=== PATIENT | male | born 1960 | race Caucasian/White ===

== ENCOUNTER 2016-06-02 02:30 | Inpatient (IN) | payer MEDICARE, OTHER ==
[~2016-06-02] VITALS: Ht 165.1 cm; Wt 63.8 kg
[2016-06-02] VITALS (32 sets, daily range): BP systolic 147–229; BP diastolic 39–110; PULSE 79–154; RESP 12–23; TEMP 98.4–98.7; O2SAT 97–100
[~2016-06-02 02:30] MED LIST: AMLO10 PO; ASPI81TA81 PO; BUSP10TA PO; CALC500C6 CHEW; CITA20TA4 PO; COZA50TA PO; EPOG1000 IV; GLIP10TA6 PO; LEVEMIR SQ; METO50TA PO; NOVOLOGP2 SQ; PANT40TA3 PO; PLAV75TA29 PO; PREG25 PO; PROB1CAP12 PO; ULTR50TA5 PO
[2016-06-02] MEDS ORDERED: LABETALOL HCL 100 MG/20 ML VIAL ONE (03:12)
[2016-06-02] MEDS ORDERED: ONDANSETRON HCL 4 MG/2 ML VIAL IVP ONE (03:15)
[2016-06-02] MEDS ORDERED: MORPHINE SULFATE 4 MG/ML INJ IV PUSH ONE (03:45)
[2016-06-02] MEDS ORDERED: PROMETHAZINE INJ 25 MG/ML VIAL IM ONE (03:45)
[2016-06-02 03:55] LABS: AUTOMATED NEUTROPHIL # 12.3 TH/MM3 (1.8-7.7); BASOPHIL % 0.2 % (0.0-2.0); HEMATOCRIT 36.5 % (39.0-51.0); HEMO FLAGS DIFF FINAL; LYMPH % 2.8 % (9.0-44.0); LYMPHOCYTE # 0.4 TH/MM3 (1.0-4.8); MEAN CELL VOLUME 85.6 FL (80.0-100.0); MEAN CORPUSCULAR HEMOGLOBIN 29.1 PG (27.0-34.0); MONO % 1.7 % (0.0-8.0); NEUT % 95.3 % (16.0-70.0); PLATELET COUNT 235 TH/MM3 (150-450); RED BLOOD COUNT 4.27 MIL/MM3 (4.50-5.90); RED CELL DISTRIBUTION WIDTH 14.1 % (11.6-17.2); WHITE BLOOD COUNT 12.9 TH/MM3 (4.0-11.0)
[2016-06-02] MEDS ORDERED: LABETALOL HCL 100 MG/20 ML VIAL IV PUSH ONE ×2 (04:00→06:15)
[2016-06-02 04:17] LABS: ALKALINE PHOSPHATASE 96 U/L (45-117); TOTAL BILIRUBIN ADULT 0.7 MG/DL (0.2-1.0)
--- NOTE | 2016-06-02 04:41 | PD ---
HPI Chief Complaint: GI Complaint Time Seen by Provider: 03:17 Travel History International Travel<30 days: No Contact w/Intl Traveler<30days: No Traveled to known affect area: No History of Present Illness HPI This is a patient with a history of end-stage renal disease who presents to the emergency department with nausea and vomiting that started yesterday prior to going to dialysis, constant, severe, with no associated headache, chest pain or abdominal pain. Patient has been struggling with this for several months intermittently. He was recently hospitalized in mid April for similar symptoms. At that time he had an endoscopy which demonstrated gastritis, a Schatzki ring which was dilated, and esophagitis. He says the symptoms are similar to symptoms he's been having on a recurrent basis. PFSH Past Medical History Hx Anticoagulant Therapy: Yes (ASA DAILY) Blood Disorders: No Anxiety: Yes Depression: Yes Heart Rhythm Problems: No Cancer: No Cardiac Catheterization: Yes Cardiovascular Problems: Yes (ME HTN CARDIAC CATH) High Cholesterol: Yes Chest Pain: Yes Congestive Heart Failure: Yes COPD: No Cerebrovascular Accident: No Diabetes: Yes Patient Takes Glucophage: Yes Dialysis: Yes (HAS FISTULA IN L ARM,FOR FUTURE) Diminished Hearing: No Endocrine: No Gastrointestinal Disorders: Yes GERD: Yes Genitourinary: No Headaches: No Hypertension: Yes Immune Disorder: No Inguinal Hernia: Yes Implanted Vascular Access Dvce: Yes (L FOREARM) Kidney Stones: Yes Musculoskeletal: No Neurologic: Yes (neuropathy) Psychiatric: Yes Reproductive: No Respiratory: Yes ( PNA) Immunizations Current: Yes Migraines: No Myocardial Infarction: Yes (2003) Renal Failure: Yes (CKD, dialysis , , SUN) Seizures: No Thyroid Disease: No Tetanus Vaccination: Unknown Influenza Vaccination: Yes Past Surgical History Abdominal Surgery: Yes (PART OF COLON AND LARGE INTESTINE REMOVED, COLOSTOMY PLACEMENT) Body Medical Devices: Cardiac Stent Cardiac Surgery: Yes (cardiac cath with stent, CARDIAC BYPASS) Coronary Stent: Yes Ear Surgery: No Endocrine Surgery: No Eye Surgery: No Genitourinary Surgery: No Gynecologic Surgery: No Neurologic Surgery: No Oral Surgery: No Thoracic Surgery: No Other Surgery: Yes (LFA fistula, Teeth pulled, colostomy ) Social History Alcohol Use: No Tobacco Use: Yes (05/08 PPD) Substance Use: No Allergies-Medications (Allergen,Severity, Reaction): Coded Allergies: No Known Allergies (Unverified , 06/02/16) Reported Meds & Prescriptions Reported Meds & Active Scripts Active Phenergan (Promethazine HCl) 25 Mg Tab 25 Mg PO Q6H PRN 14 Days Cozaar (Losartan Potassium) 50 Mg Tab 50 Mg PO DAILY Pantoprazole (Pantoprazole Sodium) 40 Mg Tab 40 Mg PO DAILY Reported Acidophilus (Probiotic Product) 1 Cap Cap 1 Cap PO DAILY Norvasc (Amlodipine Besylate) 10 Mg Tab 10 Mg PO DAILY Aspir-81 (Aspirin) 81 Mg Tabdr 81 Mg PO DAILY Buspirone (Buspirone HCl) 10 Mg Tab 10 Mg PO BID Calcium Carbonate 500 Mg Chew 500 Mg CHEW HS 500 mg calcium carbonate (200 mg elemental calcium) Citalopram (Citalopram Hydrobromide) 20 Mg Tab 20 Mg PO DAILY Plavix (Clopidogrel Bisulfate) 75 Mg Tab 75 Mg PO DAILY Epogen Inj (Epoetin Quintin) 10,000 Unit/Ml Inj 10,000 IV Glipizide 10 Mg Tab 10 Mg PO TID Take 30 minutes before a meal Novolog Inj (Insulin Aspart) 1,000 Unit/10 Ml Vial 0 SQ DIRECTED Sliding Scale as directed. Levemir Inj (Insulin Detemir) 1,000 unit/ 10 ML Vial 5 Units SQ HS Do not mix with any other Insulin. Metoprolol Tartrate 50 Mg Tab 50 Mg PO BID Lyrica (Pregabalin) 25 Mg Cap 25 Mg PO BID Ultram (Tramadol HCl) 50 Mg Tab 50 Mg PO BID PRN Review of Systems Except as stated in HPI: all other systems reviewed are Neg Physical Exam Narrative GENERAL: Uncomfortable appearing, actively vomiting SKIN: Warm and dry. HEAD: Atraumatic. Normocephalic. EYES: Pupils equal and round. No injection or drainage. ENT: Moist mucous membranes NECK: Trachea midline. CARDIOVASCULAR: Regular rate and rhythm. No murmur appreciated. RESPIRATORY: Clear to auscultation. Breath sounds equal bilaterally. GASTROINTESTINAL: Abdomen soft, non-tender, nondistended. MUSCULOSKELETAL: No obvious deformities. NEUROLOGICAL: Awake and alert. No obvious cranial nerve deficits. Moving all extremities. PSYCHIATRIC: Appropriate mood and affect; insight and judgment normal. Data Data Last Documented VS Vital Signs Date Time Temp Pulse Resp B/P Pulse Ox O2 Delivery O2 Flow Rate FiO2 06/02/16 06:00 85 16 224/110 100 Room Air 06/02/16 02:38 98.4 Orders Complete Blood Count With Diff (06/02/16 03:04) Comprehensive Metabolic Panel (06/02/16 03:04) Lipase (06/02/16 03:04) Iv Access Insert/Monitor (06/02/16 03:04) Ecg Monitoring (06/02/16 03:04) Oximetry (06/02/16 03:04) Ondansetron Inj (Zofran Inj) (06/02/16 03:15) Sodium Chloride 0.9% Flush (Ns Flush) (06/02/16 03:15) Labetalol Inj (Trandate Inj) (06/02/16 03:12) Electrocardiogram (06/02/16 ) Morphine Inj (Morphine Inj) (06/02/16 03:45) Promethazine Inj (Phenergan Inj) (06/02/16 03:45) Labetalol Inj (Trandate Inj) (06/02/16 04:00) Amlodipine (Norvasc) (06/02/16 05:15) Metoclopramide Inj (Reglan Inj) (06/02/16 06:00) Labetalol Inj (Trandate Inj) (06/02/16 06:15) Ct Brain W/O Iv Contrast(Rout) (06/02/16 ) Ct Abd/Pel W/O Iv Contrast (06/02/16 ) Labs Laboratory Tests Test 06/02/16 06/02/16 03:25 04:30 White Blood Count 12.9 TH/MM3 Red Blood Count 4.27 MIL/MM3 Hemoglobin 12.4 GM/DL Hematocrit 36.5 % Mean Corpuscular Volume 85.6 FL Mean Corpuscular Hemoglobin 29.1 PG Mean Corpuscular Hemoglobin 34.0 % Concent Red Cell Distribution Width 14.1 % Platelet Count 235 TH/MM3 Mean Platelet Volume 10.2 FL Neutrophils (%) (Auto) 95.3 % Lymphocytes (%) (Auto) 2.8 % Monocytes (%) (Auto) 1.7 % Eosinophils (%) (Auto) 0.0 % Basophils (%) (Auto) 0.2 % Neutrophils # (Auto) 12.3 TH/MM3 Lymphocytes # (Auto) 0.4 TH/MM3 Monocytes # (Auto) 0.2 TH/MM3 Eosinophils # (Auto) 0.0 TH/MM3 Basophils # (Auto) 0.0 TH/MM3 CBC Comment DIFF FINAL Differential Comment Sodium Level 135 MEQ/L Potassium Level 4.9 MEQ/L Chloride Level 100 MEQ/L Carbon Dioxide Level 26.3 MEQ/L Anion Gap 9 MEQ/L Blood Urea Nitrogen 18 MG/DL Creatinine 4.06 MG/DL Estimat Glomerular Filtration 15 ML/MIN Rate Random Glucose 185 MG/DL Calcium Level 9.5 MG/DL Total Bilirubin 0.7 MG/DL Aspartate Amino Transf 19 U/L (AST/SGOT) Alanine Aminotransferase 10 U/L (ALT/SGPT) Alkaline Phosphatase 96 U/L Total Protein 8.3 GM/DL Albumin 3.7 GM/DL Lipase 87 U/L MDM Medical Decision Making Medical Screen Exam Complete: Yes Emergency Medical Condition: Yes Interpretation(s) Mild leukocytosis Mild anemia Electrolytes are similar to prior Differential Diagnosis Gastritis, esophagitis, gastroparesis Narrative Course This is a 56-year-old male who presents the emergency department with nausea and vomiting. This is been a chronic problem for him. He recently had an endoscopy which confirmed esophagitis and gastritis. He has no abdominal pain or neurologic deficit and he is not complaining of any chest pain. He was placed on a monitor and an IV was established. Labs were all at baseline. He initially felt much better after Phenergan but then continued to have nausea. A CT of the head, abdomen and pelvis were ordered and patient was given a dose of Reglan. Disposition will be made by oncoming provider. CTs are reassuring at think the patient can be discharged. His symptoms are poorly controlled he' ll need to be admitted to the hospital. Diagnosis Primary Impression: Nausea & vomiting Qualified Code: G43.A0 - Non-intractable cyclical vomiting with nausea Patient Instructions: General Instructions Additional Instructions: If you develop severe or worsening abdominal pain, fever>100.4, persistent vomiting or inability to eat or drink return to the emergency department immediately. Follow up with your primary care physician in 1-2 days for a check-up. Med/Other Pt SpecificInfo: Prescription(s) given Scripts Promethazine (Phenergan)25 Mg Tab25 Mg PO Q6H PRN (Nausea/Vomiting) 14 Days Ref 0 Prov:Erin Tamayo MD 06/02/16 Disposition: 01 DISCHARGE HOME Condition: Stable Erin Tamayo. MD Jun 02, 2016 04:41
[2016-06-02 05:38] LABS: ALT (GPT) 10 U/L (12-78); ANION GAP 9 MEQ/L (5-15); AST (GOT) 19 U/L (15-37); BICARBONATE 26.3 MEQ/L (21.0-32.0); BLOOD UREA NITROGEN 18 MG/DL (7-18); CHLORIDE 100 MEQ/L (98-107); GLOMERULAR FILTRATION RATE 15 ML/MIN (>89); POTASSIUM 4.9 MEQ/L (3.5-5.1); SODIUM (NA) 135 MEQ/L (136-145)
[2016-06-02] MEDS ORDERED: PROM25TA5 PO (05:51)
[2016-06-02] MEDS ORDERED: METOCLOPRAMIDE HCL 10 MG/2 ML VIAL IV PUSH ONE (06:00)
--- NOTE | 2016-06-02 06:52 | RADRPT ---
EXAM DATE/TIME: 06/02/2016 06:45 [facility] COMPARISON: No previous studies available for comparison. INDICATIONS : Cephalgia with nausea and vomiting. RADIATION DOSE: 48.79 CTDIvol (mGy) MEDICAL HISTORY : Hypertension. Hypercholesterolemia. Renal calculi.[place], renal failure, dialysis, inguinal hernia, diabe cha, c-diff SURGICAL HISTORY : CABG Colostomy.stents, large intestine/colon removal. ENCOUNTER: Initial ACUITY: 1 day PAIN SCALE: 8/10 LOCATION: cranial TECHNIQUE: Multiple contiguous axial images were obtained of the head. Using automated exposure control and adj ustment of the mA and/or kV according to patient size, radiation dose was kept as low as reasonably a chievable to obtain optimal diagnostic quality images. FINDINGS: There are remote lacunar infarcts within the bilateral basal ganglia. No signs of acute infarct, hemo rrhage, or mass. No fractures. CONCLUSION: No acute disease. Jacob French MD on June 02, 2016 at 6:50 Board Certified Radiologist. This report was verified electronically.
--- NOTE | 2016-06-02 07:02 | RADRPT ---
EXAM DATE/TIME: 06/02/2016 06:48 [facility] COMPARISON: CT ABDOMEN & PELVIS W/O CONTRAST, April 17, 2016, 22:31. INDICATIONS : Abdominal pain with nausea and vomiting. ORAL CONTRAST: No oral contrast ingested. RADIATION DOSE: 9.0 CTDIvol (mGy) MEDICAL HISTORY : Hypercholesterolemia. Hypertension. Renal calculi.[place], renal failure, dialysis, inguinal hernia, diabe cha, c-diff SURGICAL HISTORY : Colon resection. CABGstents, large intestine/colon removal ENCOUNTER: Initial ACUITY: 1 day PAIN SCALE: 8/10 LOCATION: abdomen TECHNIQUE: Volumetric scanning of the abdomen and pelvis was performed. Using automated exposure control and ad justment of the mA and/or kV according to patient size, radiation dose was kept as low as reasonably achievable to obtain optimal diagnostic quality images. FINDINGS: There is a small hiatal hernia. Liver, gallbladder, spleen, pancreas, adrenal glands are unremarkable . Atrophic kidneys are noted bilaterally with prominent vascular calcifications. There is a stable cy st upper pole left kidney. There is a calcification measuring 6.6 mm at the right renal pelvis which is unchanged. There are punctate calcifications in the left renal pelvis measuring up to 6 mm, unchan ged. Extensive atherosclerotic calcifications of the aorta and iliac vessels. A left inguinal hernia is noted containing fat and small bowel. There is a small fat containing right inguinal hernia. The p rostate is prominent with calcifications. Urinary bladder unremarkable. The patient is status post le ft hemicolectomy. Right lower quadrant colostomy noted. There are degenerative changes of the spine n oted. Lung bases are clear. CONCLUSION: 1. Inguinal hernias. 2. Hiatal hernia. 3. Renal calculi. 4. Atherosclerosis. Jacob French MD on June 02, 2016 at 6:57 Board Certified Radiologist. This report was verified electronically.
--- NOTE | 2016-06-02 07:43 | PD ---
Data Data Last Documented VS Vital Signs Date Time Temp Pulse Resp B/P Pulse Ox O2 Delivery O2 Flow Rate FiO2 06/02/16 07:00 92 16 196/96 97 Room Air 06/02/16 02:38 98.4 Orders Complete Blood Count With Diff (06/02/16 03:04) Comprehensive Metabolic Panel (06/02/16 03:04) Lipase (06/02/16 03:04) Iv Access Insert/Monitor (06/02/16 03:04) Ecg Monitoring (06/02/16 03:04) Oximetry (06/02/16 03:04) Ondansetron Inj (Zofran Inj) (06/02/16 03:15) Sodium Chloride 0.9% Flush (Ns Flush) (06/02/16 03:15) Labetalol Inj (Trandate Inj) (06/02/16 03:12) Electrocardiogram (06/02/16 ) Morphine Inj (Morphine Inj) (06/02/16 03:45) Promethazine Inj (Phenergan Inj) (06/02/16 03:45) Labetalol Inj (Trandate Inj) (06/02/16 04:00) Amlodipine (Norvasc) (06/02/16 05:15) Metoclopramide Inj (Reglan Inj) (06/02/16 06:00) Labetalol Inj (Trandate Inj) (06/02/16 06:15) Ct Brain W/O Iv Contrast(Rout) (06/02/16 ) Ct Abd/Pel W/O Iv Contrast (06/02/16 ) Labs Laboratory Tests Test 06/02/16 06/02/16 03:25 04:30 White Blood Count 12.9 TH/MM3 Red Blood Count 4.27 MIL/MM3 Hemoglobin 12.4 GM/DL Hematocrit 36.5 % Mean Corpuscular Volume 85.6 FL Mean Corpuscular Hemoglobin 29.1 PG Mean Corpuscular Hemoglobin 34.0 % Concent Red Cell Distribution Width 14.1 % Platelet Count 235 TH/MM3 Mean Platelet Volume 10.2 FL Neutrophils (%) (Auto) 95.3 % Lymphocytes (%) (Auto) 2.8 % Monocytes (%) (Auto) 1.7 % Eosinophils (%) (Auto) 0.0 % Basophils (%) (Auto) 0.2 % Neutrophils # (Auto) 12.3 TH/MM3 Lymphocytes # (Auto) 0.4 TH/MM3 Monocytes # (Auto) 0.2 TH/MM3 Eosinophils # (Auto) 0.0 TH/MM3 Basophils # (Auto) 0.0 TH/MM3 CBC Comment DIFF FINAL Differential Comment Sodium Level 135 MEQ/L Potassium Level 4.9 MEQ/L Chloride Level 100 MEQ/L Carbon Dioxide Level 26.3 MEQ/L Anion Gap 9 MEQ/L Blood Urea Nitrogen 18 MG/DL Creatinine 4.06 MG/DL Estimat Glomerular Filtration 15 ML/MIN Rate Random Glucose 185 MG/DL Calcium Level 9.5 MG/DL Total Bilirubin 0.7 MG/DL Aspartate Amino Transf 19 U/L (AST/SGOT) Alanine Aminotransferase 10 U/L (ALT/SGPT) Alkaline Phosphatase 96 U/L Total Protein 8.3 GM/DL Albumin 3.7 GM/DL Lipase 87 U/L MDM Supervised Visit with ALIDA: No Narrative Course Patient signed out to me by previous provider. Please see associated no for further details. In short patient is a 56-year-old male with ESRD on HD Sunday //Sunday here with complaint of nausea and vomiting that began yesterday prior to dialysis. Intermittent symptoms similar to this. He had a EGD in April with gastritis, esophagitis and Schatzki ring that was dilated. Symptoms similar to this time. Patient notably hypertensive and given multiple doses of labetalol as well as his home oral antihypertensives prior to sign out. Also given antiemetics. Laboratory workup unremarkable. CT of the brain negative. Patient signed out to me pending CT of the abdomen and pelvis, if negative oral challenge for potential disposition to home. CT of the abdomen and pelvis negative for acute abnormalities. Patient remains hypertensive 205/98. Patient given IV hydralazine. Given oral challenge, but unable to tolerate and vomited shortly thereafter. Patient will be admitted for further management of gastritis and accelerated hypertension. Critical Care Narrative Aggregate critical care time was 35 minutes. Time to perform other separately billable procedures was not included in the critical care time. My time did not include minutes spent treating any other patients simultaneously or on activities that did not directly contribute to the patient's treatment. The services I provided to this patient were to treat and/or prevent clinically significant deterioration that could result in: Accelerated hypertension, multiple doses IV antihypertensives, , disability I provided critical care services requiring my management, as noted below: Chart data review, documentation time, medication orders and management, vital sign assessments/reviewing monitor data, ordering and reviewing lab tests, ordering and interpreting/reviewing x-rays and diagnostic studies, care of the patient and discussion of the patient with the admitting physicians. Diagnosis Primary Impression: Accelerated hypertension Additional Impressions: Nausea & vomiting Qualified Code: G43.A0 - Non-intractable cyclical vomiting with nausea Gastritis Qualified Code: K29.50 - Other chronic gastritis without hemorrhage Admitting Information Admitting Physician Requests: Admit Patient Instructions: General Instructions Additional Instruction: If you develop severe or worsening abdominal pain, fever>100.4, persistent vomiting or inability to eat or drink return to the emergency department immediately. Follow up with your primary care physician in 1-2 days for a check-up. Scripts Promethazine (Phenergan)25 Mg Tab25 Mg PO Q6H PRN (Nausea/Vomiting) 14 Days Ref 0 Prov:Erin Tamayo MD 06/02/16 Disposition: 01 DISCHARGE HOME Condition: Stable Ina France MD Jun 02, 2016 07:43
[2016-06-02] MEDS ORDERED: hydrALAZINE HCL 20 MG/ML VIAL IV PUSH ONE (08:00)
[2016-06-02] MEDS: SODIUM CHLORIDE 0.9% FLUSH 5 ML FLUSH IVF PRN ×2 (08:07→08:45)
[2016-06-02] MEDS ORDERED: ACETAMINOPHEN 325 MG TAB PO PRN ×3 (08:30→13:45)
[2016-06-02] MEDS ORDERED: SENNOSIDES 8.6 MG TAB PO PRN ×2 (08:30→10:15)
[2016-06-02] MEDS ORDERED: niCARdipine INJ 25 MG in SODIUM CHLOR 0.9% 250 ML INJ 250 ML IV ONE (08:30)
[2016-06-02] MEDS ORDERED: ENOXAPARIN SODIUM 30 MG/0.3 ML SYRINGE SQ SCH (08:30)
[2016-06-02] MEDS ORDERED: BISACODYL 10 MG SUPP PR PRN (08:30)
[2016-06-02] MEDS ORDERED: SODIUM CHLORIDE 0.9% FLUSH 5 ML FLUSH FLUSH PRN (08:30)
[2016-06-02] MEDS ORDERED: ONDANSETRON HCL 4 MG/2 ML VIAL IVP PRN (08:30)
[2016-06-02] MEDS ORDERED: SODIUM CHLORIDE 0.9% FLUSH 5 ML FLUSH FLUSH SCH (09:00)
--- NOTE | 2016-06-02 09:42 | PD.CONS ---
HPI History of Present Illness This is a 56 year old with a hx of ischemic colitis and ESRD, who is on HD on Sunday//Sunday, who came to the ER for evaluation of nausea/ vomiting. He reports that he has had intermittent nausea and vomiting for months, but this became much worse with intractable vomiting morning. This consists of coffee ground emesis. He has abdominal soreness from continuous wretching, but no actual abdominal pain. He does have a hx of ischemic colitis and underwent partial colectomy/colostomy for this back in June of 2015. He has had light brown stool from this. He denies any family hx of esophageal, gastric or colorectal cancer. He does have diabetes and was on Reglan at one point but denies taking this now and denies ever being diagnosed with gastroparesis. He currently takes Protonix and Phenergan. He is on Plavix/ASA- he tooke these yesterday but states they did not stay down. He does not take any ibuprofen or aleve. He does not drink alcohol. He denies any sick contacts, suspicious food, or travel. EGD (04/21/16)------> duodenal bulb nodule, gastritis antrum, hiatal hernia, schatzki's ring, dilatation Savary 14, retroflexed views revealed a hiatal hernia. Pathology with peptic duodenitis, gastric antral mucosal biopsy with mild chronic nonspecific gastritis, negative for intestinal metaplasia, diogenes stain negative for helicobacter, esophageal mucosal biopsies without significant histopathologic abnormality negative for esophagitis. (Mya Christian) PFSH Past Medical History End-stage renal disease Congestive heart failure Hypertension Secondary hyperparathyroidism renal disease Diabetes mellitus Peripheral arterial disease/peripheral vascular disease Anemia renal disease Hx of ischemic colitis requiring partial colectomy and colostomy Hx gangrene right great toe Gastritis/Esophagitis Atherosclerotic vascular disease Depression/Anxiety CDiff Mitral regurgitation Secondary hyperparathyroidism secondary to Vitamin D Deficiency Past Surgical History Bypass of the right leg. Amputation of the right big toe. Hemicolectomy/Colostomy. PCI status post stent 2 years ago after an VT. Left av fistula Right tunneled subclavian dialysis catheter placement EGD (Mya Christian) Coded Allergies: No Known Allergies (Unverified , 06/02/16) Medications Allergies Coded Allergies Type Severity Reaction Last Updated Verified No Known Allergies 06/02/16 No Active Scripts Medications Dose Route/Sig Days Date Category Dose Instructions Phenergan (Promethazine HCl) 25 Mg Tab 25 Mg PO Q6H PRN 14 06/02/16 Rx Cozaar (Losartan Potassium) 50 Mg Tab 50 Mg PO DAILY 04/19/16 Rx Pantoprazole (Pantoprazole Sodium) 40 Mg Tab 40 Mg PO DAILY 04/19/16 Rx Acidophilus (Probiotic Product) 1 Cap Cap 1 Cap PO DAILY 04/18/16 Reported Norvasc (Amlodipine Besylate) 10 Mg Tab 10 Mg PO DAILY 04/18/16 Reported Aspir-81 (Aspirin) 81 Mg Tabdr 81 Mg PO DAILY 04/18/16 Reported Buspirone (Buspirone HCl) 10 Mg Tab 10 Mg PO BID 04/18/16 Reported Calcium Carbonate 500 Mg Chew 500 Mg CHEW HS 04/18/16 Reported 500 mg calcium carbonate (200 mg elemental calcium ) Citalopram (Citalopram Hydrobromide) 20 Mg Tab 20 Mg PO DAILY 04/18/16 Reported Plavix (Clopidogrel Bisulfate) 75 Mg Tab 75 Mg PO DAILY 04/18/16 Reported Epogen Inj (Epoetin Quintin) 10,000 Unit/Ml Inj 10,000 IV 04/18/16 Reported Glipizide 10 Mg Tab 10 Mg PO TID 04/18/16 Reported Take 30 minutes before a meal Novolog Inj (Insulin Aspart) 1,000 Unit/10 Ml Vial 0 SQ DIRECTED 04/18/16 Reported Sliding Scale as directed. Levemir Inj (Insulin Detemir) 1,000 unit/ 10 ML Vial 5 Units SQ HS 04/18/16 Reported Do not mix with any other Insulin. Metoprolol Tartrate 50 Mg Tab 50 Mg PO BID 04/18/16 Reported Lyrica (Pregabalin) 25 Mg Cap 25 Mg PO BID 04/18/16 Reported Ultram (Tramadol HCl) 50 Mg Tab 50 Mg PO BID PRN 04/18/16 Reported Family History Patient states that brother of an cerebral hemorrhage. Mother had leukemia. Social History Patient smokes half a pack per day. No ETOH No illicit drugs. (Mya Christian) Review of Systems Constitutional: COMPLAINS OF: Fatigue, Chills, DENIES: Weight loss Respiratory: COMPLAINS OF: Shortness of breath Cardiovascular: DENIES: Chest pain Gastrointestinal: COMPLAINS OF: Abdominal pain, Nausea, Vomiting, Heartburn, Hematemesis, DENIES: Black stools, Bloody stools, Constipation, Diarrhea, Swelling of Abdomen Musculoskeletal: COMPLAINS OF: Joint pain Integumentary: DENIES: Abnormal pigmentation Hematologic/lymphatic: DENIES: Bruising Neurologic: DENIES: Headache Psychiatric: DENIES: Anxiety, Confusion (ChristianMya Erikarobert HYMAN) GI Exam Vitals I&O Vital Signs Date Time Temp Pulse Resp B/P Pulse Ox O2 Delivery O2 Flow Rate FiO2 06/02/16 09:00 120 16 196/93 100 Room Air 06/02/16 08:30 116 18 192/90 100 Room Air 06/02/16 08:00 88 20 204/101 100 Room Air 06/02/16 07:00 92 16 196/96 97 Room Air 06/02/16 06:00 85 16 224/110 100 Room Air 06/02/16 05:00 92 16 182/91 100 Room Air 06/02/16 04:00 81 16 195/96 98 Room Air 06/02/16 04:00 18 06/02/16 03:00 92 16 229/107 98 Room Air 06/02/16 02:38 98.4 99 16 218/107 99 Room Air 06/02/16 02:36 16 I/O 06/01/16 06/01/16 06/01/16 06/02/16 06/02/16 06/02/16 07:00 15:00 23:00 07:00 15:00 23:00 Output Total 50 ml Balance -50 ml Output Emesis 50 ml Imaging Last Impressions Head CT 06/02/16 0000 Signed Impressions: Service Date/Time: Thursday, June 02, 2016 06:45 - CONCLUSION: No acute disease. Jacob French MD Abdomen/Pelvis CT 06/02/16 0000 Signed Impressions: Service Date/Time: Thursday, June 02, 2016 06:48 - CONCLUSION: 1. Inguinal hernias. 2. Hiatal hernia. 3. Renal calculi. 4. Atherosclerosis. Jacob French MD Laboratory Test 06/02/16 06/02/16 03:25 04:30 White Blood Count 12.9 TH/MM3 Red Blood Count 4.27 MIL/MM3 Hemoglobin 12.4 GM/DL Hematocrit 36.5 % Mean Corpuscular Volume 85.6 FL Mean Corpuscular Hemoglobin 29.1 PG Mean Corpuscular Hemoglobin 34.0 % Concent Red Cell Distribution Width 14.1 % Platelet Count 235 TH/MM3 Mean Platelet Volume 10.2 FL Neutrophils (%) (Auto) 95.3 % Lymphocytes (%) (Auto) 2.8 % Monocytes (%) (Auto) 1.7 % Eosinophils (%) (Auto) 0.0 % Basophils (%) (Auto) 0.2 % Neutrophils # (Auto) 12.3 TH/MM3 Lymphocytes # (Auto) 0.4 TH/MM3 Monocytes # (Auto) 0.2 TH/MM3 Eosinophils # (Auto) 0.0 TH/MM3 Basophils # (Auto) 0.0 TH/MM3 CBC Comment DIFF FINAL Differential Comment Sodium Level 135 MEQ/L Potassium Level 4.9 MEQ/L Chloride Level 100 MEQ/L Carbon Dioxide Level 26.3 MEQ/L Anion Gap 9 MEQ/L Blood Urea Nitrogen 18 MG/DL Creatinine 4.06 MG/DL Estimat Glomerular Filtration 15 ML/MIN Rate Random Glucose 185 MG/DL Calcium Level 9.5 MG/DL Total Bilirubin 0.7 MG/DL Aspartate Amino Transf 19 U/L (AST/SGOT) Alanine Aminotransferase 10 U/L (ALT/SGPT) Alkaline Phosphatase 96 U/L Total Protein 8.3 GM/DL Albumin 3.7 GM/DL Lipase 87 U/L Physical Examination HEENT: Pupils round and reactive to light; normocephalic; atraumatic; no jaundice. Throat is clear. NECK: Neck is supple, no JVD, no lymphadenopathy. CHEST: CTA CARDIAC: ST 140's 150's ABDOMEN: Soft, nondistended, nontender; no hepatosplenomegaly; bowel sounds are present in all four quadrants. Wretching, coffee ground emesis EXTREMITIES: No clubbing, cyanosis, or edema. SKIN: Normal; no rash; no jaundice. RN INTAKE: No focal deficits; alert and oriented times three. (Mya Christian) Assessment and Plan Plan ASSESSMENT: - Coffee ground emesis. Pt with intractable vomiting since yesterday, he does not know what color initially this was, but is currently having some coffee ground emesis. Suspect that he has underlying gastroparesis. He had EGD in April with gastritis, duodenal bulb nodule, hh. HH 12.4/36.5. - Intractable nausea/vomiting, never been dx with gastroparesis but has been on reglan in past. States he has had chronic intermittent nausea/vomiting since his amputation. He had worsening symptoms yesterday morning. He is not having abdominal pain , other than musculoskeletal discomfort from persistent wretching. EGD ()------> duodenal bulb nodule, gastritis antrum, hiatal hernia, schatzki's ring, dilatation Savary 14, retroflexed views revealed a hiatal hernia. Pathology with peptic duodenitis, gastric antral mucosal biopsy with mild chronic nonspecific gastritis, negative for intestinal metaplasia, diogenes stain negative for helicobacter, esophageal mucosal biopsies without significant histopathologic abnormality negative for esophagitis. - ST. Pt has had persistent vomiting since yesterday. This has improved with IVF. - ESRD, HD on Sunday//Sunday. Per renal. - Mild leukocytosis, possibly from persistent vomiting. WBC 12.9 - ANemia, mild. 12.4/365. Will closely monitor. Epogen. PPI. - DM, Diabetic Neuropathy, ASVD, CHF, CAD, HTN, Hyperlipidemia, Secondary hyperparathyroidism per primary PLAN: - NPO for now - Protonix Gtt - IVF - Reglan 5mg IV q8h - Monitor HH - Transfuse as necessary - Supportive care - Further recommendations to follow based on results of above - Pt seen and examined by Dr. Gaspar and myself and this note is written on her behalf (Mya Christian) Physician Comments seen, examined++ agree with above will need better control of bp/hr-possible symptoms trigged by this too (Brittnee Gaspar MD) Mya Christian Jun 02, 2016 09:42 Brittnee Gaspar MD Jun 02, 2016 17:15
[2016-06-02] MEDS: PROCHLORPERAZINE 25 MG SUPP PR PRN ×2 (10:00→10:02)
[2016-06-02] MEDS: HEPARIN SODIUM - SQ 10,000 UNITS/ML VIAL SQ SCH ×2 (10:00→20:01)
--- NOTE | 2016-06-02 10:07 | HHI.HP ---
HPI Service [facility] Hospitalists Primary Care Physician [facility] Admission Diagnosis accelerated hypertension, nausea vomiting Diagnoses: Chief Complaint: intractable nause, vomiting, epigatsric pain Travel History International Travel<30 Days: No Contact w/Intl Traveler <30 Da: No Traveled to Known Affected Are: No History of Present Illness 56-year-old male with multiple medical problems including depression/ anxiety, peripheral neuropathy, chronic diastolic heart failure, history of myocardial infarction, hypertension, gastritis/esophagitis, atherosclerotic vascular disease including arterial and venous, ongoing tobaccoism, intractable nausea and vomiting, anemia of chronic kidney disease, end-stage renal disease on hemodialysis and Sunday, secondary hyperparathyroidism secondary to vitamin D deficiency, vitamin D deficiency, diabetes, history of C. difficile, BPH, bilateral inguinal hernias, hiatal hernia and nephrolithiasis. Patient presented to [facility] today for intractable nausea and vomiting. Patient has been nauseated since yesterday morning. Patient said he has hemodialysis yesterday afternoon, and nausea vomiting started without relief. He is not able to keep anything down. Dark-colored diarrhea or constipation. Denies fever or chills. Was seen by GI service recently in Apr 2016. His BP is persistently elevated dispite IV meds given in the ED. Was started cardene drip and patient was admitted to the ICU floor. Review of Systems Other 12 system ROS reviewed and negative except as stated in HPI Past Family Social History Past Medical History Atherosclerotic vascular disease Depression/anxiety Peripheral neuropathy Chronic diastolic heart failure Hypertension History of myocardial infarction status post stenting/PCI 2 years ago Hypertension Dyslipidemia Gastritis/esophagitis Ongoing tobaccoism Intractable nausea and vomiting End-stage renal disease on hemodialysis and Sunday Secondary hyperparathyroidism secondary to vitamin D deficiency Vitamin D deficiency BPH Diabetes mellitus Inguinal hernias bilaterally Hiatal hernia Nephrolithiasis Left renal cyst Mild MR Past Surgical History Bypass of the right leg. Amputation of the right big toe. Hemicolectomy/Colostomy. PCI status post stent 2 years ago after an [place]. Left av fistula Right tunneled subclavian dialysis catheter placement EGD Allergies: Coded Allergies: No Known Allergies (Unverified , 06/02/16) Family History Patient states that brother of an cerebral hemorrhage. Mother had leukemia. Social History Patient smokes half a pack per day. No ETOH No illicit drugs. Physical Exam Vital Signs Vital Signs Date Time Temp Pulse Resp B/P Pulse Ox O2 Delivery O2 Flow Rate FiO2 06/02/16 09:00 120 16 196/93 100 Room Air 06/02/16 08:30 116 18 192/90 100 Room Air 06/02/16 08:00 88 20 204/101 100 Room Air 06/02/16 07:00 92 16 196/96 97 Room Air 06/02/16 06:00 85 16 224/110 100 Room Air 06/02/16 05:00 92 16 182/91 100 Room Air 06/02/16 04:00 81 16 195/96 98 Room Air 06/02/16 04:00 18 06/02/16 03:00 92 16 229/107 98 Room Air 06/02/16 02:38 98.4 99 16 218/107 99 Room Air 06/02/16 02:36 16 Physical Exam GENERAL: This is a well-nourished, well-developed patient, in distress 2/2 pain , vomiting SKIN: No rashes, ecchymoses or lesions. Cool and dry. HEAD: Atraumatic. Normocephalic. No temporal or scalp tenderness. EYES: Pupils equal round and reactive. Extraocular motions intact. No scleral icterus. No injection or drainage. ENT: Nose without bleeding, purulent drainage or septal hematoma. Throat without erythema, tonsillar hypertrophy or exudate. Uvula midline. Airway patent. NECK: Trachea midline. No JVD or lymphadenopathy. Supple, nontender, no meningeal signs. CARDIOVASCULAR: Regular rate and rhythm without murmurs, gallops, or rubs. RESPIRATORY: Clear to auscultation. Breath sounds equal bilaterally. No wheezes , rales, or rhonchi. GASTROINTESTINAL: Abdomen soft, non-tender, nondistended. No hepato-splenomegaly , or palpable masses. No guarding. MUSCULOSKELETAL: Extremities without clubbing, cyanosis, or edema. No joint tenderness, effusion, or edema noted. No calf tenderness. Negative Homans sign bilaterally. NEUROLOGICAL: Awake and alert. Cranial nerves II through XII intact. Motor and sensory grossly within normal limits. Five out of 5 muscle strength in all muscle groups. Normal speech. Laboratory Laboratory Tests Test 06/02/16 06/02/16 03:25 04:30 White Blood Count 12.9 Red Blood Count 4.27 Hemoglobin 12.4 Hematocrit 36.5 Mean Corpuscular Volume 85.6 Mean Corpuscular Hemoglobin 29.1 Mean Corpuscular Hemoglobin 34.0 Concent Red Cell Distribution Width 14.1 Platelet Count 235 Mean Platelet Volume 10.2 Neutrophils (%) (Auto) 95.3 Lymphocytes (%) (Auto) 2.8 Monocytes (%) (Auto) 1.7 Eosinophils (%) (Auto) 0.0 Basophils (%) (Auto) 0.2 Neutrophils # (Auto) 12.3 Lymphocytes # (Auto) 0.4 Monocytes # (Auto) 0.2 Eosinophils # (Auto) 0.0 Basophils # (Auto) 0.0 CBC Comment DIFF FINAL Differential Comment Sodium Level 135 Potassium Level 4.9 Chloride Level 100 Carbon Dioxide Level 26.3 Anion Gap 9 Blood Urea Nitrogen 18 Creatinine 4.06 Estimat Glomerular Filtration 15 Rate Random Glucose 185 Calcium Level 9.5 Total Bilirubin 0.7 Aspartate Amino Transf 19 (AST/SGOT) Alanine Aminotransferase 10 (ALT/SGPT) Alkaline Phosphatase 96 Total Protein 8.3 Albumin 3.7 Lipase 87 Result Diagram: 06/02/16 0325 06/02/16 0430 Imaging Last Impressions Head CT 06/02/16 0000 Signed Impressions: Service Date/Time: Thursday, June 02, 2016 06:45 - CONCLUSION: No acute disease. Jacob French MD Abdomen/Pelvis CT 06/02/16 0000 Signed Impressions: Service Date/Time: Thursday, June 02, 2016 06:48 - CONCLUSION: 1. Inguinal hernias. 2. Hiatal hernia. 3. Renal calculi. 4. Atherosclerosis. Jacob French MD Assessment and Plan Assessment and Plan Intractable nausea/vomiting History of gastritis/esophagitis Hiatal hernia Bilateral inguinal hernias History of left neglect with ostomy placement secondary to perforated viscus secondary to ischemic colitis CT abdomen/pelvis revealed left renal cyst 6.6 mm. Bilateral nephrolithiasis, atherosclerotic vascular disease, bilateral hernias and small hiatal hernia. Postprocedure left hemicolectomy with colostomy placement Currently nothing by mouth. As needed Zofran/Reglan for nausea/vomiting Lipase/LFTs within normal limits. Amylase and troponins currently pending. Lactate pending. Currently on Protonix drip at 8 mg an hour due to nausea/vomiting. At home on Protonix 40 mg by mouth daily for gastroesophageal reflux disease. GIs been consulted. No bowel regimen present time. Hypertensive emergency on admission with persistent SBP in 200s dispite IV antihypertensive and was started on IV drip cardene ASVD - history of right femoral/external iliac endarterectomy and FEN/PT saphenous vein bypass Chronic diastolic heart failure Coronary artery disease status post stent/PCI 2 years ago History of CABG History dyslipidemia 2-D echocardiogram 11/19 revealed EF 60%. No regional wall motion abnormality. Mild MR. Patient is currently on a Cardene drip at 5 mg an hour to maintain systolic blood pressure less than 180 Restart Lopressor IV 5 mg IV every 6 hours. Home medications include losartan 50 mill grams by mouth daily, metoprolol 50 mg by mouth twice a day and Norvasc 10 mg by mouth daily. Home medications for peripheral vascular disease include Plavix 75 mg daily aspirin 81 mg daily. These are currently being held in light of hematemesis. Tobaccoism/1/2 pack per day. Counselled. Nasal cannula to maintain saturations greater than equal to 92% Incentive spirometry while awake As needed bronchodilator therapy Tobacco cessation will be encouraged. 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 Patient is also on glipizide 10 mEq by mouth 3 times a day for diabetes. This been held. Currently on sliding scale insulin with Accu-Cheks to maintain euglycemia. Currently not taking vitamin D supplementation End-stage renal disease on hemodialysis Sunday//Sunday Bilateral nephrolithiasis Left renal cyst Lining Cutter been consulted for hemodialysis likely for tomorrow. Patient has right tunneled hemodialysis CATHETER and left AV fistula. Anemia of chronic kidney disease on Epogen Leukocytosis Anemia Patient is on Epogen with hemodialysis. Monitor CBC/coags History of C. difficile- Monitor for infection. No diarrhea at this time. Depression/anxiety Diabetic neuropathy Patient is on Lyrica 25 mill grams by mouth twice a day for neuropathy. Resumed. Patient is on Celexa 20 mg by mouth daily for depressions. Resumed. Patient is on BuSpar 10 mg by mouth twice a day for anxiety. Resumed. Acetaminophen for fever. Morphine for pain management CT head 06/02 revealed no acute intracranial findings. FEN: Vitamin D deficiency Currently not on any supplementation. 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 Central line if indicated Prophylaxis - GI - Protonix - DVT - pharmacological prophylaxis when okay with consultants/GI Code Status full Discussed Condition With patient, nurse, ED physician Physician Certification 2 Midnight Certification Type: Admission for Inpatient Services Order for Inpatient Services The services are ordered in accordance with Medicare regulations or non- Medicare payer requirements, as applicable. In the case of services not specified as inpatient-only, they are appropriately provided as inpatient services in accordance with the 2-midnight benchmark. Estimated LOS (days): 3 days is the estimated time the patient will need to remain in the hospital, assuming treatment plan goals are met and no additional complications. Post-Hospital Plan: Home Nelda Jain MD Jun 02, 2016 10:07
[2016-06-02] MEDS ORDERED: GLUCAGON 1 MG/ML VIAL OTHER PRN (10:15)
[2016-06-02] MEDS ORDERED: HALOPERIDOL LACTATE 5 MG/ML AMP IV PUSH ONE (10:15)
[2016-06-02] MEDS ORDERED: oxyCODONE/ACETAMINOPHEN 10 MG/325 MG TAB PO PRN (10:15)
[2016-06-02] MEDS ORDERED: MORPHINE SULFATE 4 MG/ML INJ IV PRN ×3 (10:15)
[2016-06-02] MEDS ORDERED: NALOXONE HCL 0.4 MG/ML AMP IV PRN (10:15)
[2016-06-02] MEDS ORDERED: RESP: ALBUTEROL 2.5 MG/IPRATROPIUM 0.5 MG NEB (PRN) INH (10:15)
[2016-06-02] MEDS ORDERED: SODIUM CHLORIDE 0.9% FLUSH 5 ML FLUSH IV FLUSH PRN (10:15)
[2016-06-02] MEDS ORDERED: oxyCODONE/ACETAMINOPHEN 5 MG/325 MG TAB PO PRN (10:15)
[2016-06-02] MEDS ORDERED: MISCELLANEOUS NURSING INFORMATION XX SCH (10:15)
[2016-06-02] MEDS ORDERED: CHLORHEXIDINE GLUCONATE 2 % 1 PACK (2 CLOTHS) TOP PRN (10:15)
[2016-06-02] MEDS ORDERED: ONDANSETRON HCL 4 MG/2 ML VIAL IV PRN ×2 (10:15→13:45)
[2016-06-02] MEDS ORDERED: DEXTROSE 50% IN WATER 50 ML VIAL(D50) IV PUSH PRN (10:15)
[2016-06-02] MEDS: SODIUM CHLOR 0.9% 1000 ML INJ 1,000 ML IV SCH ×2 (10:26→20:02)
--- NOTE | 2016-06-02 10:27 | PD.CONS ---
HPI Service Critical Care Medicine Consult Requested By ED Reason for Consult Hypertensive emergency Primary Care Physician [facility] History of Present Illness 56-year-old male. Date of admission 06/02/2016. Date of consultation 06/02/2016. Past medical history includes depression/anxiety, peripheral neuropathy, chronic diastolic heart failure, history of myocardial infarction, hypertension, gastritis/esophagitis, atherosclerotic vascular disease including arterial and venous, ongoing tobaccoism, intractable nausea and vomiting, anemia of chronic kidney disease, end-stage renal disease on hemodialysis and Sunday, secondary hyperparathyroidism secondary to vitamin D deficiency, vitamin D deficiency, diabetes, history of C. difficile, BPH, bilateral inguinal hernias, hiatal hernia and nephrolithiasis. Patient presented to [facility] today for intractable nausea and vomiting. Review of Systems Constitutional: COMPLAINS OF: Fatigue, Weight loss, DENIES: Fever, Weight gain Endocrine: DENIES: Polydipsia, Polyuria Eyes: DENIES: Blurred vision, Double Vision Ears, nose, mouth, throat: DENIES: Tinnitus, Running Nose, Odynophagia Respiratory: DENIES: Apneas, Cough, Sputum production, Shortness of breath Cardiovascular: DENIES: Chest pain, Palpitations Gastrointestinal: COMPLAINS OF: Nausea, Vomiting, DENIES: Abdominal pain, Black stools, Bloody stools, Constipation, Diarrhea, Difficulty Swallowing Genitourinary: DENIES: Urgency, Hematuria Musculoskeletal: DENIES: Joint pain, Joint Swelling Integumentary: DENIES: Abnormal pigmentation Hematologic/lymphatic: DENIES: Bruising Immunologic/allergic: DENIES: Eczema Neurologic: DENIES: Abnormal gait, Headache Psychiatric: COMPLAINS OF: Depression, DENIES: Anxiety, Confusion Past Family Social History Allergies: Coded Allergies: No Known Allergies (Unverified , 06/02/16) Past Medical History Atherosclerotic vascular disease Depression/anxiety Peripheral neuropathy Chronic diastolic heart failure Hypertension History of myocardial infarction status post stenting/PCI 2 years ago Hypertension Dyslipidemia Gastritis/esophagitis Ongoing tobaccoism Intractable nausea and vomiting End-stage renal disease on hemodialysis Sunday/ and Sunday Secondary hyperparathyroidism secondary to vitamin D deficiency Vitamin D deficiency BPH Diabetes mellitus Inguinal hernias bilaterally Hiatal hernia Nephrolithiasis Left renal cyst Mild MR Past Surgical History Right tunneled cuffed catheter for hemodialysis CABG Stent/PCI 2 years ago Left hemicolectomy with ostomy placement for ischemic colitis/perforated viscus 2016 Left AV fistula Right great toe 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 History of femoral/external iliac endarterectomy with femoral/posterior tibial in situ saphenous vein bypass Reported Medications Losartan 50 mg by mouth daily Lyrica 25 mg by mouth twice a day Celexa 20 mg by mouth daily BuSpar 10 mg by mouth twice a day Metoprolol 50 mg by mouth twice a day Norvasc 10 mg by mouth daily Epogen Sliding-scale insulin Levemir 5 units subcutaneous daily at bedtime Aspirin 81 mg by mouth daily Plavix 75 mg by mouth daily Protonix 40 mg by mouth daily Ultram as needed Glipizide 10 mg by mouth 3 times a day Calcium carbonate 500 mg by mouth daily Active Ordered Medications Reviewed in EMR Family History Brother with cerebral hemorrhage/. Mother with leukemia Social History One half pack per day tobacco since age 16. No history of IV drug abuse or alcoholism Physical Exam Vital Signs Vital Signs Date Time Temp Pulse Resp B/P Pulse Ox O2 Delivery O2 Flow Rate FiO2 06/02/16 10:00 131 16 169/90 Room Air 100 06/02/16 09:00 120 16 196/93 100 Room Air 06/02/16 08:30 116 18 192/90 100 Room Air 06/02/16 08:00 88 20 204/101 100 Room Air 06/02/16 07:00 92 16 196/96 97 Room Air 06/02/16 06:00 85 16 224/110 100 Room Air 06/02/16 05:00 92 16 182/91 100 Room Air 06/02/16 04:00 81 16 195/96 98 Room Air 06/02/16 04:00 18 06/02/16 03:00 92 16 229/107 98 Room Air 06/02/16 02:38 98.4 99 16 218/107 99 Room Air 06/02/16 02:36 16 Physical Exam GENERAL: 56-year-old male, appears older than stated age currently resting in bed with nausea SKIN: Warm and dry. No rash HEAD: Atraumatic. Normocephalic. EYES: Pupils equal and round around 3 mm bilaterally and reactive. No scleral icterus. No injection or drainage. ENT: No nasal bleeding or discharge. Mucous membranes pink and dry. Oropharynx without erythema NECK: Trachea midline. No JVD. CARDIOVASCULAR: Tachycardic, RR. S1, S2. No S4. Without murmur RESPIRATORY: Clear to auscultation. Breath sounds equal bilaterally. GASTROINTESTINAL: Abdomen soft, tender to deep palpation. No guarding or rigidity. Hypoactive bowel sounds are appreciated MUSCULOSKELETAL: Extremities and amputation right great toe. Left AV fistula with positive thrill. NEUROLOGICAL: Awake and alert. No obvious cranial nerve deficits. Motor grossly within normal limits. Five out of 5 muscle strength in the arms and legs. Decreased sensation light touch and pinprick in extremities. Laboratory Laboratory Tests Test 06/02/16 06/02/16 03:25 04:30 White Blood Count 12.9 Red Blood Count 4.27 Hemoglobin 12.4 Hematocrit 36.5 Mean Corpuscular Volume 85.6 Mean Corpuscular Hemoglobin 29.1 Mean Corpuscular Hemoglobin 34.0 Concent Red Cell Distribution Width 14.1 Platelet Count 235 Mean Platelet Volume 10.2 Neutrophils (%) (Auto) 95.3 Lymphocytes (%) (Auto) 2.8 Monocytes (%) (Auto) 1.7 Eosinophils (%) (Auto) 0.0 Basophils (%) (Auto) 0.2 Neutrophils # (Auto) 12.3 Lymphocytes # (Auto) 0.4 Monocytes # (Auto) 0.2 Eosinophils # (Auto) 0.0 Basophils # (Auto) 0.0 CBC Comment DIFF FINAL Differential Comment Sodium Level 135 Potassium Level 4.9 Chloride Level 100 Carbon Dioxide Level 26.3 Anion Gap 9 Blood Urea Nitrogen 18 Creatinine 4.06 Estimat Glomerular Filtration 15 Rate Random Glucose 185 Calcium Level 9.5 Total Bilirubin 0.7 Aspartate Amino Transf 19 (AST/SGOT) Alanine Aminotransferase 10 (ALT/SGPT) Alkaline Phosphatase 96 Total Protein 8.3 Albumin 3.7 Lipase 87 Result Diagram: 06/02/16 0325 06/02/16 0430 Imaging Last Impressions Head CT 06/02/16 0000 Signed Impressions: Service Date/Time: Thursday, June 02, 2016 06:45 - CONCLUSION: No acute disease. Jacob French MD Abdomen/Pelvis CT 06/02/16 0000 Signed Impressions: Service Date/Time: Thursday, June 02, 2016 06:48 - CONCLUSION: 1. Inguinal hernias. 2. Hiatal hernia. 3. Renal calculi. 4. Atherosclerosis. Jacob French MD Assessment and Plan Assessment and Plan Neuro/Psych: Depression/anxiety Diabetic neuropathy Patient is on Lyrica 25 mill grams by mouth twice a day for neuropathy. Resumed. Patient is on Celexa 20 mg by mouth daily for depressions. Resumed. Patient is on BuSpar 10 mg by mouth twice a day for anxiety. Resumed. Acetaminophen for fever. Morphine for pain management CT head 06/02 revealed no acute intracranial findings. CV: ASVD - history of right femoral/external iliac endarterectomy and FEN/PT saphenous vein bypass Chronic diastolic heart failure Coronary artery disease status post stent/PCI 2 years ago History of CABG Hypertensive emergency History dyslipidemia 2-D echocardiogram 11/19 revealed EF 60%. No regional wall motion abnormality. Mild MR. Patient is currently on a Cardene drip at 5 mg an hour to maintain systolic blood pressure less than 180 Restart Lopressor IV 5 mg IV every 6 hours. Home medications include losartan 50 mill grams by mouth daily, metoprolol 50 mg by mouth twice a day and Norvasc 10 mg by mouth daily. Home medications for peripheral vascular disease include Plavix 75 mg daily aspirin 81 mg daily. These are currently being held in light of hematemesis. Resp: Ongoing tobaccoism/1/2 pack per day Nasal cannula to maintain saturations greater than equal to 92% Incentive spirometry while awake As needed bronchodilator therapy Tobacco cessation will be encouraged. GI: Intractable nausea/vomiting History of gastritis/esophagitis Hiatal hernia Bilateral inguinal hernias History of left neglect with ostomy placement secondary to perforated viscus secondary to ischemic colitis CT abdomen/pelvis revealed left renal cyst 6.6 mm. Bilateral nephrolithiasis, atherosclerotic vascular disease, bilateral hernias and small hiatal hernia. Postprocedure left hemicolectomy with colostomy placement Currently nothing by mouth. As needed Zofran/Reglan for nausea/vomiting Lipase/LFTs within normal limits. Amylase and troponins currently pending. Lactate pending. Currently on Protonix drip at 8 mg an hour due to nausea/vomiting. At home on Protonix 40 mg by mouth daily for gastroesophageal reflux disease. GIs been consulted. No bowel regimen present time. 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 Patient is also on glipizide 10 mEq by mouth 3 times a day for diabetes. This been held. Currently on sliding scale insulin with Accu-Cheks to maintain euglycemia. 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 Patient has right tunneled hemodialysis CATHETER and left AV fistula. Heme: Anemia of chronic kidney disease on Epogen Leukocytosis Anemia Patient is on Epogen with hemodialysis. Monitor CBC/coags ID: History of C. difficile Monitor for infection. FEN: Vitamin D deficiency Currently not on any supplementation. 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 Central line if indicated Prophylaxis - GI - Protonix - DVT - pharmacological prophylaxis when okay with consultants/GI Critical Care: The total critical care time was 85 minutes. Time to perform other separately billable procedures was not included in the critical care time. Code Status Full code. Discussed Condition With Dr. Huddleston/ED physician. Patient. Discussed and All Questions Answered Jack Wiley MD Jun 02, 2016 10:27
[2016-06-02] MEDS ORDERED: TRAM50TA PO (10:28)
[2016-06-02] MEDS: METOPROLOL TARTRATE 5 MG/5 ML VIAL IV PUSH SCH ×3 (10:35→22:27)
[2016-06-02] MEDS ORDERED: SODIUM CHLOR 0.9% 1000 ML INJ 1,000 ML IV SCH (11:00)
[2016-06-02] MEDS ORDERED: PANTOPRAZOLE INJ 80 MG in SODIUM CHLORIDE 0.9% INJ 100 ML IV SCH ×4 (11:00)
[2016-06-02] MEDS: INSULIN NovoLIN REGULAR SUPPLEMENTAL SCALE SQ SCH ×3 (11:05→20:01)
[2016-06-02] MEDS: PANTOPRAZOLE INJ 80 MG in SODIUM CHLORIDE 0.9% INJ 100 ML IV SCH ×2 (11:06→19:52)
[2016-06-02 12:08] LABS: PROTHROMBIN TIME - PATIENT 11.6 SEC (9.8-11.6)
[2016-06-02 12:54] LABS: MAGNESIUM 1.9 MG/DL (1.5-2.5)
[2016-06-02] MEDS: ARTIFICIAL TEARS OPTH SOLN 15 ML BTL EACH EYE SCH ×2 (12:59→17:52)
[2016-06-02] MEDS: METOCLOPRAMIDE HCL 10 MG/2 ML VIAL IV PUSH SCH ×2 (12:59→22:27)
[2016-06-02] MEDS ORDERED: SODIUM CHLOR 0.9% 1000 ML INJ 1,000 ML IV PRN ×3 (13:40)
--- NOTE | 2016-06-02 13:40 | PD.CONS ---
[facility] Service Nephrology Consult Requested By Dr. Jain Reason for Consult Known ESRD on HD Primary Care Physician [facility] History of Present Illness The patient is a 56 yo [place] male who is known to our services for ESRD on HD TTS. He has recurrent issues with intractable nausea and vomiting for which is why he present to the ED again this AM. He reports that it started after HD yesterday. Has noted some bright red and coffee ground appearing emesis which is new. He has been admitted several times here for similar complaints and has been advised to f/u with OP GI, but has failed to do so. He has a h/o ischemic colitis that required partial colectomy and colostomy formation. His BP is notably very high. He does have hypertension that is usually fairly well controlled by medications. Usually holds BP meds on HD days d/t hypotension during sessions. He does still smoke which he has been counselled about. Missed HD on , but had an uneventful HD yesterday as per outpatient HD nurse. (Eugenie Britton) Review of Systems Gastrointestinal: COMPLAINS OF: Abdominal pain, Nausea, Vomiting (Eugenie Britton) Past Family Social History Allergies: Coded Allergies: No Known Allergies (Unverified , 06/02/16) Past Medical History End-stage renal disease Congestive heart failure Hypertension Secondary hyperparathyroidism renal disease Diabetes mellitus Coronary disease status post PTCA Recent toe gangrene status post amputation. History of perforated diverticulitis with colostomy. Dietary vitamin D deficiency. Peripheral vascular disease Past Surgical History PTCA AVF formation that has failed. PermCath placement Toe amputation Colectomy with diverting colostomy Reported Medications Reported Meds & Active Scripts Active Phenergan (Promethazine HCl) 25 Mg Tab 25 Mg PO Q6H PRN 14 Days Cozaar (Losartan Potassium) 50 Mg Tab 50 Mg PO DAILY Pantoprazole (Pantoprazole Sodium) 40 Mg Tab 40 Mg PO DAILY Reported Tramadol (Tramadol HCl) 50 Mg Tab 100 Mg PO BID PRN Norvasc (Amlodipine Besylate) 10 Mg Tab 10 Mg PO DAILY Aspir-81 (Aspirin) 81 Mg Tabdr 81 Mg PO DAILY Buspirone (Buspirone HCl) 10 Mg Tab 10 Mg PO BID Citalopram (Citalopram Hydrobromide) 20 Mg Tab 20 Mg PO DAILY Metoprolol Tartrate 50 Mg Tab 50 Mg PO BID Active Ordered Medications Current Medications Medications (Trade) Dose Ordered Sig/Hallie Route Start Time Stop Time Status Last Admin (Compazine Supp) [address] 06/02/16 08:30 (Dulcolax Supp) [address] 06/02/16 08:30 (Heparin Inj) 5,000 units BID SQ 06/02/16 10:00 06/02/16 10:00 (Percocet 5-325 Mg) 1 tab Q6H PRN PO 06/02/16 10:15 (Percocet 10-325 Mg) 1 tab Q6H PRN PO 06/02/16 10:15 (Morphine Inj) 2 mg Q4H PRN IV 06/02/16 10:15 (Morphine Inj) 4 mg Q4H PRN IV 06/02/16 10:15 (Morphine Inj) 4 mg Q4H PRN IV 06/02/16 10:15 (Narcan Inj) 0.4 mg UNSCH PRN IV 06/02/16 10:15 Metoclopramide HCl 5 mg 5 mg Q8HR IV PUSH 06/02/16 14:00 06/02/16 12:59 (NS 1000 ml Inj) 1,000 ml @ 84 mls/hr [id number] IV 06/02/16 10:00 06/02/16 10:26 (NS Flush) 2 ml UNSCH PRN IV FLUSH 06/02/16 10:15 (NS Flush) 2 ml BID IV FLUSH 06/02/16 21:00 (Tylenol) 650 mg Q6H PRN PO 06/02/16 10:15 (Tears Naturale Opth Soln) 1 drop TID EACH EYE 06/02/16 13:00 (Zofran Inj) 4 mg Q4H PRN IV 06/02/16 10:15 (Colace) 100 mg BID PO 06/02/16 21:00 (Senokot) 17.2 mg Q12H PRN PO 06/02/16 10:15 Miscellaneous Information 1 [id number] XX 06/02/16 10:15 (Chlorhexidine 2% Cloth) 3 pack Taper DAILY@04 TOP 06/03/16 04:00 05/30/17 03:59 (Chlorhexidine 2% Cloth) 3 pack UNSCH PRN TOP 06/02/16 10:15 (D50w (Vial) Inj) 25 ml UNSCH PRN IV PUSH 06/02/16 10:15 (Glucagon Inj) 1 mg UNSCH PRN OTHER 06/02/16 10:15 (Lopressor Inj) 5 mg Q6H IV PUSH 06/02/16 11:00 06/02/16 10:35 (CeleXA) 20 mg DAILY PO 06/03/16 09:00 (Buspar) 10 mg Q12HR PO 06/02/16 21:00 (Lyrica) 25 mg Q12HR PO 06/02/16 21:00 (Cozaar) 25 mg DAILY PO 06/03/16 09:00 Calcium Carbonate 500 mg 500 mg DAILY CHEW 06/03/16 09:00 (Protonix Inj/NS Inj) 100 ml @ 10 mls/hr Q10H IV 06/02/16 11:00 06/02/16 11:06 Family History NC Social History Lives alone Single, no children Tobacco use, denies any EtOH, smokes marijuana (Eugenie Britton) Physical Exam Vital Signs Vital Signs Date Time Temp Pulse Resp B/P Pulse Ox O2 Delivery O2 Flow Rate FiO2 06/02/16 13:00 126 16 165/81 100 Room Air 06/02/16 12:30 128 16 149/81 100 Room Air 06/02/16 12:00 134 18 169/85 98 Room Air 06/02/16 11:30 118 20 170/85 98 Room Air 06/02/16 11:15 126 16 98 Room Air 06/02/16 11:00 120 16 170/82 100 Room Air 06/02/16 10:45 124 17 172/83 Room Air 99 06/02/16 10:30 154 16 172/86 99 Room Air 06/02/16 10:00 131 16 169/90 Room Air 100 06/02/16 09:00 120 16 196/93 100 Room Air 06/02/16 08:30 116 18 192/90 100 Room Air 06/02/16 08:00 88 20 204/101 100 Room Air 06/02/16 07:00 92 16 196/96 97 Room Air 06/02/16 06:00 85 16 224/110 100 Room Air 06/02/16 05:00 92 16 182/91 100 Room Air 06/02/16 04:00 81 16 195/96 98 Room Air 06/02/16 04:00 18 06/02/16 03:00 92 16 229/107 98 Room Air 06/02/16 02:38 98.4 99 16 218/107 99 Room Air 06/02/16 02:36 16 Physical Exam GENERAL: Laying in bed with emesis basin on lap. Dry heaving throughout exam. Mild distress SKIN: Warm and dry. HEAD: Atraumatic. Normocephalic. EYES: Pupils equal and round. No scleral icterus. No injection or drainage. ENT: No nasal bleeding or discharge. Mucous membranes pink and moist. NECK: Trachea midline. No JVD. CARDIOVASCULAR: Tachycardia. No murmurs RESPIRATORY: No accessory muscle use. Clear to auscultation. Breath sounds equal bilaterally. GASTROINTESTINAL: Abdomen tender to palpation epigastric. Colostomy present MUSCULOSKELETAL: Extremities without clubbing, cyanosis, or edema. No obvious deformities. NEUROLOGICAL: Awake and alert. Normal speech. PSYCHIATRIC: Appropriate mood and affect; insight and judgment normal. Laboratory Laboratory Tests Test 06/02/16 06/02/16 06/02/16 06/02/16 03:25 04:30 10:50 11:33 White Blood Count 12.9 Red Blood Count 4.27 Hemoglobin 12.4 Hematocrit 36.5 Mean Corpuscular Volume 85.6 Mean Corpuscular Hemoglobin 29.1 Mean Corpuscular Hemoglobin 34.0 Concent Red Cell Distribution Width 14.1 Platelet Count 235 Mean Platelet Volume 10.2 Neutrophils (%) (Auto) 95.3 Lymphocytes (%) (Auto) 2.8 Monocytes (%) (Auto) 1.7 Eosinophils (%) (Auto) 0.0 Basophils (%) (Auto) 0.2 Neutrophils # (Auto) 12.3 Lymphocytes # (Auto) 0.4 Monocytes # (Auto) 0.2 Eosinophils # (Auto) 0.0 Basophils # (Auto) 0.0 CBC Comment DIFF FINAL Differential Comment Sodium Level 135 Potassium Level 4.9 Chloride Level 100 Carbon Dioxide Level 26.3 Anion Gap 9 Blood Urea Nitrogen 18 Creatinine 4.06 Estimat Glomerular Filtration 15 Rate Random Glucose 185 Calcium Level 9.5 Total Bilirubin 0.7 Aspartate Amino Transf 19 (AST/SGOT) Alanine Aminotransferase 10 (ALT/SGPT) Alkaline Phosphatase 96 Total Protein 8.3 Albumin 3.7 Lipase 87 Lactic Acid Level 2.5 Troponin I 0.02 Amylase Level 23 Phosphorus Level 1.4 Magnesium Level 1.9 Ammonia LESS THAN 10 Total Creatine Kinase 149 Thyroid Stimulating Hormone 2.700 3rd Gen Test 06/02/16 11:40 Prothrombin Time 11.6 Prothromb Time International 1.0 Ratio Activated Partial 28.0 Thromboplast Time Fibrinogen 519 (Eugenie Britton) Result Diagram: 06/02/16 0325 06/02/16 0430 Imaging Last Impressions Head CT 06/02/16 0000 Signed Impressions: Service Date/Time: Thursday, June 02, 2016 06:45 - CONCLUSION: No acute disease. Jacob French MD Abdomen/Pelvis CT 06/02/16 0000 Signed Impressions: Service Date/Time: Thursday, June 02, 2016 06:48 - CONCLUSION: 1. Inguinal hernias. 2. Hiatal hernia. 3. Renal calculi. 4. Atherosclerosis. Jacob French MD (Eugenie Britton) Assessment and Plan Problem List: (1) ESRD on hemodialysis Plan: To continue on HD TTS as outpatient schedule. Check PO4, Vit D, iPTH Medications should be adjusted for the patient's ESRD. Avoid gadolinium. (2) Accelerated hypertension Plan: Typically well controlled on home regimen. Currently on Cardene drip. Defer mgmt to CC while hospitalized. Will adjust home regimen if needed once stabilized. (3) Diabetes mellitus Plan: Mgmt as per primary (4) Intractable vomiting Plan: GI has been consulted. Appears emesis is bloody. Has been noncompliant with outpatient f/u with GI. (Eugenie Britton) Assessment and Plan The exam, history, and the medical decision-making described in the above note were completed with the assistance of the PAJackson. I reviewed and agree with the findings presented. . (David Kennedy MD) Eugenie Britton Jun 02, 2016 13:40 David Kennedy MD Jun 03, 2016 11:37
[2016-06-02] MEDS ORDERED: diphenhydrAMINE HCL 25 MG CAP PO PRN (13:45)
[2016-06-02] MEDS ORDERED: ALBUMIN HUMAN 25% 25 GM/100 ML BAGP IV PRN (13:45)
[2016-06-02] MEDS ORDERED: cloNIDine HCL 0.1 MG TAB PO PRN (13:45)
[2016-06-02] MEDS ORDERED: GELATIN 12 MM/7 MM FOAM TOP PRN (13:45)
[2016-06-02] MEDS ORDERED: HEPARIN SODIUM - IV 10,000 UNITS/10 ML VIAL PRN (13:45)
[2016-06-02] MEDS ORDERED: MANNITOL 12.5 GM/50 ML VIAL IV PRN (13:45)
[2016-06-02] MEDS ORDERED: NITROGLYCERIN 0.4 MG SL 25 TABS/BTL SL PRN (13:45)
[2016-06-02] MEDS ORDERED: GENTAMICIN SULFATE (DIALYSIS USE ONLY) 20 MG/2 ML VIAL IV PRN (13:45)
[2016-06-02] MEDS ORDERED: SODIUM CHLORIDE 0.9% FLUSH 5 ML FLUSH IVF PRN (13:45)
[2016-06-02 15:30] LABS: HEMATOCRIT 35.9 % (39.0-51.0); REVIEW FLAG FINAL
[2016-06-02] MEDS ORDERED: POTASSIUM PHOSPHATE MONOBASIC 500 MG TAB PO ONE (16:00)
--- NOTE | 2016-06-02 16:23 | EKG ---
Date Performed: 06/02/2016 Time Performed: 03:26:56 PTAGE: 56 years EKG: Sinus rhythm MODERATE VOLTAGE CRITERIA FOR LVH, CONSIDER NORMAL VARIANT BORDERLINE ECG PREVIOUS TRACING : 04/17/2016 22.24 Compared to prior tracing no significant change DOCTOR: Reynaldo Genao Interpretating Date/Time 06/02/2016 16:22:43
[2016-06-02] MEDS ORDERED: SODIUM PHOSPHATE INJ 15 MMOL in SODIUM CHLORIDE 0.9% INJ 150 ML IV ONE (19:30)
[2016-06-02 19:39] LABS: HEMATOCRIT 36.3 % (39.0-51.0); REVIEW FLAG FINAL
[2016-06-02] MEDS: SODIUM CHLORIDE 0.9% FLUSH 5 ML FLUSH IV FLUSH SCH (19:52)
[2016-06-02] MEDS: PREGABALIN 25 MG CAP PO SCH (20:01)
[2016-06-02] MEDS: DOCUSATE SODIUM 100 MG CAP PO SCH (20:01)
[2016-06-02] MEDS: busPIRone HCL 10 MG TAB PO SCH (20:01)
[2016-06-03] VITALS (12 sets, daily range): BP systolic 157–189; BP diastolic 77–89; PULSE 63–75; RESP 12–20; TEMP 98.2–98.6; O2SAT 98–100
[2016-06-03] MEDS ORDERED: CHLORHEXIDINE GLUCONATE 2 % 1 PACK (2 CLOTHS) TOP SCH (04:00)
[2016-06-03 04:10] LABS: AUTOMATED NEUTROPHIL # 8.4 TH/MM3 (1.8-7.7); BASOPHIL % 0.3 % (0.0-2.0); HEMATOCRIT 33.7 % (39.0-51.0); HEMO FLAGS DIFF FINAL; LYMPH % 11.4 % (9.0-44.0); LYMPHOCYTE # 1.2 TH/MM3 (1.0-4.8); MEAN CELL VOLUME 85.6 FL (80.0-100.0); MEAN CORPUSCULAR HEMOGLOBIN 29.3 PG (27.0-34.0); MEAN CORPUSCULAR HGB CONC 34.2 % (32.0-36.0); MONO % 8.8 % (0.0-8.0); NEUT % 79.5 % (16.0-70.0); PLATELET COUNT 181 TH/MM3 (150-450); RED BLOOD COUNT 3.93 MIL/MM3 (4.50-5.90); RED CELL DISTRIBUTION WIDTH 14.3 % (11.6-17.2); WHITE BLOOD COUNT 10.6 TH/MM3 (4.0-11.0)
[2016-06-03 04:12] LABS: APTT (PATIENT) 27.4 SEC (24.3-30.1); INTERNATIONAL NORMALIZED RATIO 1.1 RATIO; PROTHROMBIN TIME - PATIENT 11.9 SEC (9.8-11.6)
[2016-06-03 04:30] LABS: ALKALINE PHOSPHATASE 75 U/L (45-117); ALT (GPT) 9 U/L (12-78); ANION GAP 12 MEQ/L (5-15); AST (GOT) 10 U/L (15-37); BICARBONATE 25.3 MEQ/L (21.0-32.0); BLOOD UREA NITROGEN 31 MG/DL (7-18); CHLORIDE 106 MEQ/L (98-107); GLOMERULAR FILTRATION RATE 11 ML/MIN (>89); MAGNESIUM 2.1 MG/DL (1.5-2.5); POTASSIUM 3.7 MEQ/L (3.5-5.1); SODIUM (NA) 143 MEQ/L (136-145); TOTAL BILIRUBIN ADULT 0.6 MG/DL (0.2-1.0)
[2016-06-03] MEDS: METOCLOPRAMIDE HCL 10 MG/2 ML VIAL IV PUSH SCH ×2 (04:59→12:00)
[2016-06-03] MEDS: METOPROLOL TARTRATE 5 MG/5 ML VIAL IV PUSH SCH ×3 (04:59→13:07)
[2016-06-03] MEDS: INSULIN NovoLIN REGULAR SUPPLEMENTAL SCALE SQ SCH ×2 (06:26→11:00)
[2016-06-03] MEDS: PANTOPRAZOLE INJ 80 MG in SODIUM CHLORIDE 0.9% INJ 100 ML IV SCH (06:26)
[2016-06-03] MEDS ORDERED: LOSARTAN 25 MG TAB PO SCH (09:00)
[2016-06-03] MEDS ORDERED: CITALOPRAM HYDROBROMIDE 20 MG TAB PO SCH ×2 (09:00→10:45)
[2016-06-03] MEDS: DOCUSATE SODIUM 100 MG CAP PO SCH (09:00)
[2016-06-03] MEDS ORDERED: CALCIUM CARBONATE 500 MG CHEWABLE TAB CHEW SCH (09:00)
[2016-06-03] MEDS ORDERED: traMADol HCL 50 MG TAB PO PRN (10:45)
[2016-06-03] MEDS ORDERED: PROMETHAZINE HCL 25 MG TAB PO PRN (10:45)
[2016-06-03] MEDS ORDERED: busPIRone HCL 10 MG TAB PO SCH (10:45)
--- NOTE | 2016-06-03 10:45 | HHI.FF ---
Face to Face Verification Diagnosis: (1) ESRD (end stage renal disease) on dialysis (2) Abdominal pain (3) PVD (peripheral vascular disease) (4) Accelerated hypertension (5) Intractable vomiting Physical Therapy Order: Evaluate and Treat Home Health Nursing Order: Medical education Signs/symptoms of disease process Diabetic education Medication education-adverse effect Nursing assessment with vital signs I have seen patient Missael Cintron on 06/03/16. My clinical findings support the need for the requested home health care services because: Ltd mobility - disease progression I certify that my clinical findings support that this patient is homebound because: Post-op weakness Nelda Jain MD Jun 03, 2016 10:45
--- NOTE | 2016-06-03 10:46 | HHI.DCPOC ---
Discharge Care Plan Goals to Promote Your Health * To prevent worsening of your condition and complications * To maintain your health at the optimal level Directions to Meet Your Goals Take your medications as prescribed Follow your dietary instruction Follow activity as directed Keep your appointments as scheduled Take your immunizations and boosters as scheduled If your symptoms worsen call your PCP, if no PCP go to Urgent Care Center or Emergency Room Smoking is Dangerous to Your Health. Avoid second hand smoke Call the 24-hour hour crisis hotline for domestic abuse at Nelda Jain MD Jun 03, 2016 10:46
--- NOTE | 2016-06-03 10:47 | HHI.CCPN ---
Subjective Remarks/Hospital Course D/W Dr Jain. She has seen patient today and on my exam he is stable to continue on [facility] service. I will sign off. re consult if needed Objective Vital Signs Date Time Temp Pulse Resp B/P Pulse Ox O2 Delivery O2 Flow Rate FiO2 06/03/16 10:00 63 06/03/16 08:38 99 21 06/03/16 08:00 98.6 18 189/86 06/02/16 18:04 Room Air Intake and Output 06/02/16 06/02/16 06/03/16 08:00 16:00 00:00 Intake Total 1126 ml Output Total 50 ml 150 ml 50 ml Balance -50 ml -150 ml 1076 ml Result Diagram: 06/03/16 0349 06/03/16 0349 Jose Martin Montoya MD Jun 03, 2016 10:47 Result Diagram: 06/03/16 0349 06/03/16 0349 Imaging Last Impressions Head CT 06/02/16 0000 Signed Impressions: Service Date/Time: Thursday, June 02, 2016 06:45 - CONCLUSION: No acute disease. Jacob French MD Abdomen/Pelvis CT 06/02/16 0000 Signed Impressions: Service Date/Time: Thursday, June 02, 2016 06:48 - CONCLUSION: 1. Inguinal hernias. 2. Hiatal hernia. 3. Renal calculi. 4. Atherosclerosis. Jacob French MD Objective Remarks GENERAL: 56-year-old male, appears older than stated age currently resting in bed with nausea SKIN: Warm and dry. No rash HEAD: Atraumatic. Normocephalic. EYES: Pupils equal and round around 3 mm bilaterally and reactive. No scleral icterus. No injection or drainage. ENT: No nasal bleeding or discharge. Mucous membranes pink and dry. Oropharynx without erythema NECK: Trachea midline. No JVD. CARDIOVASCULAR: Tachycardic, RR. S1, S2. No S4. Without murmur RESPIRATORY: Clear to auscultation. Breath sounds equal bilaterally. GASTROINTESTINAL: Abdomen soft, tender to deep palpation. No guarding or rigidity. Hypoactive bowel sounds are appreciated MUSCULOSKELETAL: Extremities and amputation right great toe. Left AV fistula with positive thrill. NEUROLOGICAL: Awake and alert. No obvious cranial nerve deficits. Motor grossly within normal limits. Five out of 5 muscle strength in the arms and legs. Decreased sensation light touch and pinprick in extremities. A/P Assessment and Plan Neuro/Psych: Depression/anxiety Diabetic neuropathy Patient is on Lyrica 25 mill grams by mouth twice a day for neuropathy. Resumed. Patient is on Celexa 20 mg by mouth daily for depressions. Resumed. Patient is on BuSpar 10 mg by mouth twice a day for anxiety. Resumed. Acetaminophen for fever. Morphine for pain management CT head 06/02 revealed no acute intracranial findings. CV: ASVD - history of right femoral/external iliac endarterectomy and FEN/PT saphenous vein bypass Chronic diastolic heart failure Coronary artery disease status post stent/PCI 2 years ago History of CABG Hypertensive emergency History dyslipidemia 2-D echocardiogram 11/19 revealed EF 60%. No regional wall motion abnormality. Mild MR. Patient is currently on a Cardene drip at 5 mg an hour to maintain systolic blood pressure less than 180 Restart Lopressor IV 5 mg IV every 6 hours. Home medications include losartan 50 mill grams by mouth daily, metoprolol 50 mg by mouth twice a day and Norvasc 10 mg by mouth daily. Home medications for peripheral vascular disease include Plavix 75 mg daily aspirin 81 mg daily. These are currently being held in light of hematemesis. Resp: Ongoing tobaccoism/1/2 pack per day Nasal cannula to maintain saturations greater than equal to 92% Incentive spirometry while awake As needed bronchodilator therapy Tobacco cessation will be encouraged. GI: Intractable nausea/vomiting History of gastritis/esophagitis Hiatal hernia Bilateral inguinal hernias History of left neglect with ostomy placement secondary to perforated viscus secondary to ischemic colitis CT abdomen/pelvis revealed left renal cyst 6.6 mm. Bilateral nephrolithiasis, atherosclerotic vascular disease, bilateral hernias and small hiatal hernia. Postprocedure left hemicolectomy with colostomy placement Currently nothing by mouth. As needed Zofran/Reglan for nausea/vomiting Lipase/LFTs within normal limits. Amylase and troponins currently pending. Lactate pending. Currently on Protonix drip at 8 mg an hour due to nausea/vomiting. At home on Protonix 40 mg by mouth daily for gastroesophageal reflux disease. GIs been consulted. No bowel regimen present time. 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 Patient is also on glipizide 10 mEq by mouth 3 times a day for diabetes. This been held. Currently on sliding scale insulin with Accu-Cheks to maintain euglycemia. Currently not taking vitamin D supplementation Renal: End-stage renal disease on hemodialysis Sunday//Sunday Bilateral nephrolithiasis Left renal cyst Smelter Liner been consulted for hemodialysis likely for tomorrow. Patient has right tunneled hemodialysis CATHETER and left AV fistula. Heme: Anemia of chronic kidney disease on Epogen Leukocytosis Anemia Patient is on Epogen with hemodialysis. Monitor CBC/coags ID: History of C. difficile Monitor for infection. FEN: Vitamin D deficiency Currently not on any supplementation. 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 Central line if indicated Prophylaxis - GI - Protonix - DVT - pharmacological prophylaxis when okay with consultants/GI Critical Care: The total critical care time was 85 minutes. Time to perform other separately billable procedures was not included in the critical care time. Jose Martin Montoya MD Jun 03, 2016 10:47
--- NOTE | 2016-06-03 10:59 | HHI.PR ---
Subjective Remarks Patient feels much better today. His SBP is in 170s off cardene drip. No more nausea or vomiting. No abdominal pain. Wants to eat. He is getting HD at this time. Objective Vitals Vital Signs Date Time Temp Pulse Resp B/P Pulse Ox O2 Delivery O2 Flow Rate FiO2 06/03/16 10:00 63 06/03/16 08:38 99 21 06/03/16 08:00 98.6 68 18 189/86 100 06/03/16 08:00 68 06/03/16 06:00 74 06/03/16 06:00 98.5 74 13 174/89 98 06/03/16 05:00 98.5 71 12 180/84 100 06/03/16 04:00 98.5 65 16 176/81 99 06/03/16 04:00 65 06/03/16 03:00 98.2 69 16 166/77 99 06/03/16 02:00 73 06/03/16 02:00 98.2 73 20 160/80 100 06/03/16 01:00 98.2 75 17 157/85 98 06/03/16 00:00 75 06/03/16 00:00 98.2 75 20 158/82 99 06/02/16 23:00 98.7 83 19 161/84 98 06/02/16 22:00 79 06/02/16 22:00 98.7 79 14 157/80 99 06/02/16 21:00 98.7 93 23 148/73 98 06/02/16 20:00 98.7 79 13 164/83 99 06/02/16 20:00 79 06/02/16 19:00 98.7 87 12 175/101 100 06/02/16 18:04 85 16 162/85 99 Room Air 06/02/16 17:30 88 16 99 Room Air 06/02/16 17:15 92 16 100 Room Air 06/02/16 17:00 90 16 168/95 100 Room Air 06/02/16 16:45 92 16 99 Room Air 06/02/16 16:00 102 16 181/89 100 Room Air 06/02/16 15:00 104 16 176/91 98 Room Air 06/02/16 14:00 110 16 150/81 98 Room Air 06/02/16 13:30 120 18 147/83 99 Room Air 06/02/16 13:00 126 16 165/81 100 Room Air 06/02/16 12:30 128 16 149/81 100 Room Air 06/02/16 12:00 134 18 169/85 98 Room Air 06/02/16 11:30 118 20 170/85 98 Room Air 06/02/16 11:15 126 16 98 Room Air 06/02/16 11:00 120 16 170/82 100 Room Air I/O 06/02/16 06/02/16 06/02/16 06/03/16 06/03/16 06/03/16 07:00 15:00 23:00 07:00 15:00 23:00 Intake Total 1126 ml 417 ml Output Total 50 ml 150 ml 50 ml 0 ml Balance -50 ml -150 ml 1076 ml 417 ml Intake IV Total 1126 ml 417 ml Output Urine Total 0 ml 0 ml Stool Total 50 ml 0 ml Emesis 50 ml 150 ml # Voids 0 Result Diagram: 06/03/16 0349 06/03/16 0349 Imaging Last Impressions Head CT 06/02/16 0000 Signed Impressions: Service Date/Time: Thursday, June 02, 2016 06:45 - CONCLUSION: No acute disease. Jacob French MD Abdomen/Pelvis CT 06/02/16 0000 Signed Impressions: Service Date/Time: Thursday, June 02, 2016 06:48 - CONCLUSION: 1. Inguinal hernias. 2. Hiatal hernia. 3. Renal calculi. 4. Atherosclerosis. Jacob French MD Objective Remarks GENERAL: This is a well-nourished, well-developed patient, in distress 2/2 pain , vomiting SKIN: No rashes, ecchymoses or lesions. Cool and dry. HEAD: Atraumatic. Normocephalic. No temporal or scalp tenderness. EYES: Pupils equal round and reactive. Extraocular motions intact. No scleral icterus. No injection or drainage. ENT: Nose without bleeding, purulent drainage or septal hematoma. Throat without erythema, tonsillar hypertrophy or exudate. Uvula midline. Airway patent. NECK: Trachea midline. No JVD or lymphadenopathy. Supple, nontender, no meningeal signs. CARDIOVASCULAR: Regular rate and rhythm without murmurs, gallops, or rubs. RESPIRATORY: Clear to auscultation. Breath sounds equal bilaterally. No wheezes , rales, or rhonchi. GASTROINTESTINAL: Abdomen soft, non-tender, nondistended. No hepato-splenomegaly , or palpable masses. No guarding. MUSCULOSKELETAL: Extremities without clubbing, cyanosis, or edema. No joint tenderness, effusion, or edema noted. No calf tenderness. Negative Homans sign bilaterally. NEUROLOGICAL: Awake and alert. Cranial nerves II through XII intact. Motor and sensory grossly within normal limits. Five out of 5 muscle strength in all muscle groups. Normal speech. A/P Assessment and Plan Intractable nausea/vomiting. Resolved. Advance diet as tolerated History of gastritis/esophagitis. On PPI Hiatal hernia Bilateral inguinal hernias History of left neglect with ostomy placement secondary to perforated viscus secondary to ischemic colitis CT abdomen/pelvis revealed left renal cyst 6.6 mm. Bilateral nephrolithiasis, atherosclerotic vascular disease, bilateral hernias and small hiatal hernia. Postprocedure left hemicolectomy with colostomy placement Currently nothing by mouth. As needed Zofran/Reglan for nausea/vomiting Lipase/LFTs within normal limits. Amylase and troponins neg Lactate normal. On Protonix drip at 8 mg an hour due to nausea/vomiting. At home on Protonix 40 mg by mouth daily for gastroesophageal reflux disease. GIs been consulted conservative management at this time. No bowel regimen present time. Hypertensive emergency on admission with persistent SBP in 200s dispite IV antihypertensive and was started on IV drip cardene. OFF drip, BS better controlled currently getting HD. SBP in 170s. Restart hoem PO meds ASVD - history of right femoral/external iliac endarterectomy and FEN/PT saphenous vein bypass Chronic diastolic heart failure Coronary artery disease status post stent/PCI 2 years ago History of CABG History dyslipidemia 2-D echocardiogram 11/19 revealed EF 60%. No regional wall motion abnormality. Mild MR. Patient is currently on a Cardene drip at 5 mg an hour to maintain systolic blood pressure less than 180 Restart Lopressor IV 5 mg IV every 6 hours. Home medications include losartan 50 mill grams by mouth daily, metoprolol 50 mg by mouth twice a day and Norvasc 10 mg by mouth daily. Home medications for peripheral vascular disease include Plavix 75 mg daily aspirin 81 mg daily. These were held in light of hematemesis, restart Tobaccoism/1/2 pack per day. Counselled. Nasal cannula to maintain saturations greater than equal to 92% Incentive spirometry while awake As needed bronchodilator therapy Tobacco cessation will be encouraged. 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 Patient is also on glipizide 10 mEq by mouth 3 times a day for diabetes. This been held. Currently on sliding scale insulin with Accu-Cheks to maintain euglycemia. Currently not taking vitamin D supplementation End-stage renal disease on hemodialysis Sunday//Sunday Bilateral nephrolithiasis Left renal cyst Drier Unloader been consulted for hemodialysis likely for tomorrow. Patient has right tunneled hemodialysis CATHETER and left AV fistula. Anemia of chronic kidney disease on Epogen Leukocytosis Anemia Patient is on Epogen with hemodialysis. Monitor CBC/coags History of C. difficile- Monitor for infection. No diarrhea at this time. Depression/anxiety Diabetic neuropathy Patient is on Lyrica 25 mill grams by mouth twice a day for neuropathy. Resumed. Patient is on Celexa 20 mg by mouth daily for depressions. Resumed. Patient is on BuSpar 10 mg by mouth twice a day for anxiety. Resumed. Acetaminophen for fever. Morphine for pain management CT head 06/02 revealed no acute intracranial findings. FEN: Vitamin D deficiency Currently not on any supplementation. 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 Central line if indicated Prophylaxis - GI - Protonix - DVT - pharmacological prophylaxis when okay with consultants/GI Code Status full Discussed Condition With Dr Montoya studio camera operator, patient, ICU nurse. Discharge Planning plan to dc home with home health later today , SBP persistently < 160 and tolerates food Spoke with Dr Hubert MARR, cleared by GI for DC Diet Healthy heart diet and ADA as tolerated Follow up with PCP and consultants as OP Activity ad gwen as tolerated Meds per med reconciliations. Adviced compliance with meds, HD, and follow up appointments. Nelda Jain MD Jun 03, 2016 10:59
[2016-06-03] MEDS: ARTIFICIAL TEARS OPTH SOLN 15 ML BTL EACH EYE SCH ×2 (11:38→12:23)
[2016-06-03] MEDS: PREGABALIN 25 MG CAP PO SCH (12:00)
[2016-06-03] MEDS ORDERED: METOPROLOL TARTRATE 50 MG TAB PO SCH (12:00)
[2016-06-03] MEDS: busPIRone HCL 10 MG TAB PO SCH (12:00)
--- NOTE | 2016-06-03 12:00 | HHI.GIFU ---
GI Follow-up Note Consult Follow-up Subjective: Patient laying in bed comfortably, feeling better, waiting for his tray.Had dialysis, bp better. No nausea or vomiting Objective: PHYSICAL EXAMINATION: Vitals signs stable No fever Vital Signs Date Time Temp Pulse Resp B/P Pulse Ox O2 Delivery O2 Flow Rate FiO2 06/03/16 10:00 63 06/03/16 08:38 99 21 06/03/16 08:00 98.6 68 18 189/86 100 06/03/16 08:00 68 06/03/16 06:00 74 06/03/16 06:00 98.5 74 13 174/89 98 06/03/16 05:00 98.5 71 12 180/84 100 06/03/16 04:00 98.5 65 16 176/81 99 06/03/16 04:00 65 HEENT: Pupils round and reactive to light; normocephalic; atraumatic; no jaundice. Throat is clear. NECK: Neck is supple, no JVD, no lymphadenopathy. CHEST: Chest is clear to auscultation and percussion. CARDIAC: Regular rate and rhythm with no murmur gallop or rubs. ABDOMEN: Soft, nondistended, nontender; no hepatosplenomegaly; bowel sounds are present in all four quadrants. EXTREMITIES: No clubbing, cyanosis, or edema. SKIN: Normal; no rash; no jaundice. 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 Available Data (labs, X- Rays, Procedues) : Laboratory Tests Test 06/02/16 06/02/16 06/02/16 06/02/16 03:25 04:30 10:50 11:33 White Blood Count 12.9 TH/MM3 Red Blood Count 4.27 MIL/MM3 Hemoglobin 12.4 GM/DL Hematocrit 36.5 % Mean Corpuscular Volume 85.6 FL Mean Corpuscular Hemoglobin 29.1 PG Mean Corpuscular Hemoglobin 34.0 % Concent Red Cell Distribution Width 14.1 % Platelet Count 235 TH/MM3 Mean Platelet Volume 10.2 FL Neutrophils (%) (Auto) 95.3 % Lymphocytes (%) (Auto) 2.8 % Monocytes (%) (Auto) 1.7 % Eosinophils (%) (Auto) 0.0 % Basophils (%) (Auto) 0.2 % Neutrophils # (Auto) 12.3 TH/MM3 Lymphocytes # (Auto) 0.4 TH/MM3 Monocytes # (Auto) 0.2 TH/MM3 Eosinophils # (Auto) 0.0 TH/MM3 Basophils # (Auto) 0.0 TH/MM3 CBC Comment DIFF FINAL Differential Comment Sodium Level 135 MEQ/L Potassium Level 4.9 MEQ/L Chloride Level 100 MEQ/L Carbon Dioxide Level 26.3 MEQ/L Anion Gap 9 MEQ/L Blood Urea Nitrogen 18 MG/DL Creatinine 4.06 MG/DL Estimat Glomerular Filtration 15 ML/MIN Rate Random Glucose 185 MG/DL Calcium Level 9.5 MG/DL Total Bilirubin 0.7 MG/DL Aspartate Amino Transf 19 U/L (AST/SGOT) Alanine Aminotransferase 10 U/L (ALT/SGPT) Alkaline Phosphatase 96 U/L Total Protein 8.3 GM/DL Albumin 3.7 GM/DL Lipase 87 U/L Lactic Acid Level 2.5 mmol/L Troponin I 0.02 NG/ML Amylase Level 23 U/L Phosphorus Level 1.4 MG/DL Magnesium Level 1.9 MG/DL Ammonia LESS THAN 10 MCMOL/L Total Creatine Kinase 149 U/L 25-Hydroxy Vitamin D Total 32.1 ng/ML Thyroid Stimulating Hormone 2.700 uIU/ML 3rd Gen Test 06/02/16 06/02/16 06/02/16 06/02/16 11:40 15:15 19:00 19:13 Prothrombin Time 11.6 SEC Prothromb Time International 1.0 RATIO Ratio Activated Partial 28.0 SEC Thromboplast Time Fibrinogen 519 mg/dL Hemoglobin 12.1 GM/DL 12.3 GM/DL Hematocrit 35.9 % 36.3 % Nasal Screen MRSA (PCR) NEGATIVE Lactic Acid Level 1.0 mmol/L Troponin I 0.51 NG/ML Parathyroid Hormone (Intact) 140.1 PG/ML Test 06/03/16 06/03/16 03:49 09:09 White Blood Count 10.6 TH/MM3 Red Blood Count 3.93 MIL/MM3 Hemoglobin 11.5 GM/DL Hematocrit 33.7 % Mean Corpuscular Volume 85.6 FL Mean Corpuscular Hemoglobin 29.3 PG Mean Corpuscular Hemoglobin 34.2 % Concent Red Cell Distribution Width 14.3 % Platelet Count 181 TH/MM3 Mean Platelet Volume 9.7 FL Neutrophils (%) (Auto) 79.5 % Lymphocytes (%) (Auto) 11.4 % Monocytes (%) (Auto) 8.8 % Eosinophils (%) (Auto) 0.0 % Basophils (%) (Auto) 0.3 % Neutrophils # (Auto) 8.4 TH/MM3 Lymphocytes # (Auto) 1.2 TH/MM3 Monocytes # (Auto) 0.9 TH/MM3 Eosinophils # (Auto) 0.0 TH/MM3 Basophils # (Auto) 0.0 TH/MM3 CBC Comment DIFF FINAL Differential Comment Prothrombin Time 11.9 SEC Prothromb Time International 1.1 RATIO Ratio Activated Partial 27.4 SEC Thromboplast Time Sodium Level 143 MEQ/L Potassium Level 3.7 MEQ/L Chloride Level 106 MEQ/L Carbon Dioxide Level 25.3 MEQ/L Anion Gap 12 MEQ/L Blood Urea Nitrogen 31 MG/DL Creatinine 5.35 MG/DL Estimat Glomerular Filtration 11 ML/MIN Rate Random Glucose 100 MG/DL Lactic Acid Level 0.5 mmol/L Calcium Level 9.0 MG/DL Phosphorus Level 4.7 MG/DL Magnesium Level 2.1 MG/DL Total Bilirubin 0.6 MG/DL Aspartate Amino Transf 10 U/L (AST/SGOT) Alanine Aminotransferase 9 U/L (ALT/SGPT) Alkaline Phosphatase 75 U/L Total Protein 6.8 GM/DL Albumin 3.3 GM/DL Troponin I 0.51 NG/ML ASSESSMENT/PLAN: recurrent nausea, vomiting multifactorial in this particular instance I think was related to uncontrolled htn gastroparesis secondary diabetes -on Reglan gastritis, esophagitis Recommendations ppi advance diet ok to dc home from gi point if tolerated food fu office 2 weeks gastroparesis diet It was a pleasure seeing Missael Cintron. Thank you for this consult. Entered by: Brittnee Gramajo MD Jun 03, 2016 12:00
[2016-06-03] MEDS: SODIUM CHLORIDE 0.9% FLUSH 5 ML FLUSH IV FLUSH SCH (12:05)
[2016-06-03] MEDS: HEPARIN SODIUM - SQ 10,000 UNITS/ML VIAL SQ SCH (12:20)
--- NOTE | 2016-06-03 12:44 | HHI.NPPN ---
Subjective History of Present Illness The patient is a 56 yo [place] male who is known to our services for ESRD on HD TTS. He has recurrent issues with intractable nausea and vomiting for which is why he present to the ED again this AM. He reports that it started after HD yesterday. Has noted some bright red and coffee ground appearing emesis which is new. He has been admitted several times here for similar complaints and has been advised to f/u with OP GI, but has failed to do so. He has a h/o ischemic colitis that required partial colectomy and colostomy formation. His BP is notably very high. He does have hypertension that is usually fairly well controlled by medications. Usually holds BP meds on HD days d/t hypotension during sessions. He does still smoke which he has been counselled about. Missed HD on but came to dialysis subsequently., Interval History Patient indicated no nausea vomiting this morning. He stated that he tolerated his dialysis treatment well today. Objective Data Data 06/02/16 06/03/16 19:00 07:00 Intake Total 1543 ml Output Total 150 ml 50 ml Balance -150 ml 1493 ml Intake IV Total 1543 ml Output Urine Total 0 ml Stool Total 50 ml Emesis 150 ml # Voids 0 Vital Signs Date Time Temp Pulse Resp B/P Pulse Ox O2 Delivery O2 Flow Rate FiO2 06/03/16 10:00 63 06/03/16 08:38 99 21 06/03/16 08:00 98.6 68 18 189/86 100 06/03/16 08:00 68 06/03/16 06:00 74 06/03/16 06:00 98.5 74 13 174/89 98 06/03/16 05:00 98.5 71 12 180/84 100 06/03/16 04:00 98.5 65 16 176/81 99 06/03/16 04:00 65 06/03/16 03:00 98.2 69 16 166/77 99 06/03/16 02:00 73 06/03/16 02:00 98.2 73 20 160/80 100 06/03/16 01:00 98.2 75 17 157/85 98 06/03/16 00:00 75 06/03/16 00:00 98.2 75 20 158/82 99 06/02/16 23:00 98.7 83 19 161/84 98 06/02/16 22:00 79 06/02/16 22:00 98.7 79 14 157/80 99 06/02/16 21:00 98.7 93 23 148/73 98 06/02/16 20:00 98.7 79 13 164/83 99 06/02/16 20:00 79 06/02/16 19:00 98.7 87 12 175/101 100 06/02/16 18:04 85 16 162/85 99 Room Air 06/02/16 17:30 88 16 99 Room Air 06/02/16 17:15 92 16 100 Room Air 06/02/16 17:00 90 16 168/95 100 Room Air 06/02/16 16:45 92 16 99 Room Air 06/02/16 16:00 102 16 181/89 100 Room Air 06/02/16 15:00 104 16 176/91 98 Room Air 06/02/16 14:00 110 16 150/81 98 Room Air 06/02/16 13:30 120 18 147/83 99 Room Air 06/02/16 13:00 126 16 165/81 100 Room Air -: 06/03/16 0349 06/03/16 0349 Physical Exam General Appearance: No Acute Distress, Comfortable Eyes Eye Exam: Sclera White Neck Neck Exam: Trachea Midline Pulmonary Resp Exam: Clear Bilaterally, Breath Sounds Equal, No Distress Cardiology CV Exam: Regular, Normal Sinus Rhythm, Good Perfusion Gastrointestinal/Abdomen GI Exam: Soft, Non-Tender Extremeties Extremities Exam: No Edema Neurologic Neuro Exam: Alert, Awake Psychiatric Psych Exam: Appropriate Responses Assessment/Plan Discussed Condition With: Patient Problem List: (1) ESRD on hemodialysis Plan: To continue on HD TTS as outpatient schedule. Patient's blood pressure is elevated however did not receive his blood pressure medications as yet as dialysis just completed. The blood pressure stable patient clear for discharge from renal point of view. Patient has been advised to follow with GI as an outpatient multiple times but compliance has been an issue in this regard. Patient also is noncompliant with his dialysis treatments occasionally. Medications should be adjusted for the patient's ESRD. Avoid gadolinium. (2) Accelerated hypertension Plan: Typically well controlled on home regimen. Currently on Cardene drip. Defer mgmt to CC while hospitalized. Will adjust home regimen if needed once stabilized. (3) Diabetes mellitus Plan: Mgmt as per primary (4) Intractable vomiting Plan: GI has been consulted. Appears emesis is bloody. Has been noncompliant with outpatient f/u with GI. David Kennedy MD Jun 03, 2016 12:44
[2016-06-03] MEDS ORDERED: PANTOPRAZOLE SOD 40 MG DELAYED RELEASE TAB PO SCH (14:00)
[2016-06-03] MEDS ORDERED: LOSARTAN 25 MG TAB PO ONE (15:00)
[2016-06-04] MEDS ORDERED: ASPIRIN EC 81 MG TABEC PO SCH (09:00)
[2016-06-04] MEDS ORDERED: LOSARTAN 50 MG TAB PO SCH (09:00)
[2016-06-09] MEDS ORDERED: PROM25TA5 PO (04:23)
== END 2016-06-03 16:15 | disposition home or self-care (01) | DRG 304 ==
LOC: NEPE 02:30 → NEDA 08:21 → NEDH 12:55 → HIMW 18:45
PROVIDERS: ADMIT Hospitalist; ATTEND Hospitalist
DX: I16.1 Hypertensive emergency (principal); N18.6 End stage renal disease; K92.0 Hematemesis; I50.32 Chronic diastolic (congestive) heart failure; E11.22 Type 2 diabetes mellitus with diabetic chronic kidney disease; I25.810 Atherosclerosis of coronary artery bypass graft(s) without angina pectoris; N25.81 Secondary hyperparathyroidism of renal origin; I10 Essential (primary) hypertension; Z95.1 Presence of aortocoronary bypass graft; D63.1 Anemia in chronic kidney disease; G62.9 Polyneuropathy, unspecified; E55.9 Vitamin D deficiency, unspecified; E78.5 Hyperlipidemia, unspecified; F17.210 Nicotine dependence, cigarettes, uncomplicated; R11.2 Nausea with vomiting, unspecified; I25.2 Old myocardial infarction; I34.0 Nonrheumatic mitral (valve) insufficiency; I73.9 Peripheral vascular disease, unspecified; K21.0 Gastro-esophageal reflux disease with esophagitis; Z99.2 Dependence on renal dialysis; K29.50 Unspecified chronic gastritis without bleeding; K29.80 Duodenitis without bleeding; K31.84 Gastroparesis; K40.20 Bilateral inguinal hernia, without obstruction or gangrene, not specified as recurrent; K44.9 Diaphragmatic hernia without obstruction or gangrene; K59.00 Constipation, unspecified; N20.0 Calculus of kidney; N28.1 Cyst of kidney, acquired; N40.0 Benign prostatic hyperplasia without lower urinary tract symptoms; Z79.02 Long term (current) use of antithrombotics/antiplatelets; Z79.82 Long term (current) use of aspirin; Z89.411 Acquired absence of right great toe; Z91.19 Patient's noncompliance with other medical treatment and regimen; Z93.3 Colostomy status; Z95.5 Presence of coronary angioplasty implant and graft; F41.8 Other specified anxiety disorders; D72.829 Elevated white blood cell count, unspecified
CPT/HCPCS: 70450; 74176; 80053; 82140; 82150; 82306; 82550; 83605; 83690; 83735; 83970; 84100; 84443; 84484; 85014; 85018; 85025; 85384; 85610; 85730; 87641; 90935; 93005; 96372; 96374; 96375; 96376; C9113; J0360; J1580; J1630; J1644; J2270; J2405; J2550; J2765; J7030; J7050

== ENCOUNTER 2016-06-10 00:25 | Emergency (ER) | payer MEDICARE, OTHER ==
[~2016-06-10] VITALS: Ht 170.2 cm; Wt 65.0 kg
[~2016-06-10 00:25] MED LIST changes: -CALC500C6 CHEW; -EPOG1000 IV; -GLIP10TA6 PO; -LEVEMIR SQ; -NOVOLOGP2 SQ; -PLAV75TA29 PO; -PREG25 PO; -PROB1CAP12 PO; +PROM25TA5 PO; +TRAM50TA PO; -ULTR50TA5 PO
[2016-06-10 00:27] VITALS: BP 199/141; PULSE 80; RESP 20; TEMP 98.7; O2SAT 100
[2016-06-10] MEDS ORDERED: hydrALAZINE HCL 20 MG/ML VIAL IV PUSH ONE (00:30)
[2016-06-10] MEDS ORDERED: SODIUM CHLORIDE 0.9% FLUSH 5 ML FLUSH IVF PRN (00:30)
[2016-06-10] MEDS ORDERED: METOCLOPRAMIDE HCL 10 MG/2 ML VIAL IVP ONE (00:30)
[2016-06-10] MEDS ORDERED: diphenhydrAMINE HCL 50 MG/ML VIAL IVP ONE (00:30)
--- NOTE | 2016-06-10 00:35 | PD ---
HPI Chief Complaint: GI Complaint Time Seen by Provider: 00:29 Travel History International Travel<30 days: No Contact w/Intl Traveler<30days: No Traveled to known affect area: No History of Present Illness HPI Patient is a 56-year-old male with history of ESRD on HD Sunday// Sunday, gastritis/esophagitis, and EGD with Schatzki ring dilated dictation in April 2016 here with complaint of nausea and vomiting. Patient has known diabetes and diabetic gastroparesis. He is seen here frequently for intractable nausea and vomiting, just been seen here yesterday. He was discharged home with Phenergan but states that it is not really helping. He notes a mild amount of epigastric abdominal discomfort. He has had his usual colostomy output. He had dialysis yesterday and had a full run as per usual. Patient was seen yesterday in our ED and laboratory workup was notable for leukocytosis and his baseline renal dysfunction. He denies any fevers or chills. EMS noted patient to be hypertensive, which is long-standing issue for him. Patient told EMS that he had bloody emesis, but when they arrived patient showed his emesis EMS and this was noted to be bile, no hematemesis noted. PFSH Past Medical History Hx Anticoagulant Therapy: No Blood Disorders: No Anxiety: Yes Depression: Yes Heart Rhythm Problems: No Cancer: No Cardiac Catheterization: Yes Cardiovascular Problems: Yes (Rt. leg vascular bypass ) High Cholesterol: Yes Chest Pain: Yes Congestive Heart Failure: Yes COPD: No Cerebrovascular Accident: No Diabetes: Yes Dialysis: Yes (HAS FISTULA IN L ARM,FOR FUTURE) Diminished Hearing: No Endocrine: No Gastrointestinal Disorders: Yes GERD: Yes Genitourinary: No Headaches: No Hypertension: Yes Immune Disorder: No Inguinal Hernia: Yes Implanted Vascular Access Dvce: Yes (L FOREARM) Kidney Stones: Yes Musculoskeletal: No Neurologic: Yes (neuropathy) Psychiatric: Yes Reproductive: No Respiratory: Yes ( PNA) Immunizations Current: Yes Migraines: No Myocardial Infarction: Yes (2003) Renal Failure: Yes (CKD, dialysis , , SUN) Seizures: No Thyroid Disease: No Past Surgical History Abdominal Surgery: Yes (PART OF COLON AND LARGE INTESTINE REMOVED, COLOSTOMY PLACEMENT) Body Medical Devices: Cardiac Stent Cardiac Surgery: Yes (cardiac cath with stent, CARDIAC BYPASS) Coronary Stent: Yes Ear Surgery: No Endocrine Surgery: No Eye Surgery: No Genitourinary Surgery: No Gynecologic Surgery: No Neurologic Surgery: No Oral Surgery: No Thoracic Surgery: No Other Surgery: Yes (LFA fistula, Teeth pulled, colostomy ) Social History Alcohol Use: No Tobacco Use: Yes (1/2 PPD) Substance Use: No Allergies-Medications (Allergen,Severity, Reaction): Coded Allergies: No Known Allergies (Unverified , 06/10/16) Reported Meds & Prescriptions Reported Meds & Active Scripts Active Phenergan (Promethazine HCl) 25 Mg Tab 25 Mg PO Q6H PRN Cozaar (Losartan Potassium) 50 Mg Tab 50 Mg PO DAILY Pantoprazole (Pantoprazole Sodium) 40 Mg Tab 40 Mg PO DAILY Reported Tramadol (Tramadol HCl) 50 Mg Tab 100 Mg PO BID PRN Norvasc (Amlodipine Besylate) 10 Mg Tab 10 Mg PO DAILY Aspir-81 (Aspirin) 81 Mg Tabdr 81 Mg PO DAILY Buspirone (Buspirone HCl) 10 Mg Tab 10 Mg PO BID Citalopram (Citalopram Hydrobromide) 20 Mg Tab 20 Mg PO DAILY Metoprolol Tartrate 50 Mg Tab 50 Mg PO BID Review of Systems ROS Limitations: Poor Historian Except as stated in HPI: all other systems reviewed are Neg Physical Exam Exam Limitations: Poor Historian Narrative GENERAL: Adult male appearing older than stated age in no acute distress SKIN: Warm and dry. HEAD: Normocephalic. EYES: No scleral icterus. No injection or drainage. ENT: Mucous membranes pink and moist. NECK: Supple CARDIOVASCULAR: Regular rate and rhythm. No murmur appreciated. Hypertensive RESPIRATORY: No accessory muscle use. Clear to auscultation. Breath sounds equal bilaterally. GASTROINTESTINAL: Abdomen soft, non-tender, nondistended. Colostomy right lower quadrant. MUSCULOSKELETAL: Moves all extremities normally NEUROLOGICAL: Awake and alert. Motor grossly within normal limits. Normal speech. PSYCHIATRIC: Appropriate mood and affect; insight and judgment normal. Data Data Last Documented VS Vital Signs Date Time Temp Pulse Resp B/P Pulse Ox O2 Delivery O2 Flow Rate FiO2 06/10/16 02:09 75 18 197/99 100 Room Air 06/10/16 00:27 98.7 Orders Complete Blood Count With Diff (06/10/16 00:29) Comprehensive Metabolic Panel (06/10/16 00:29) Lipase (06/10/16 00:29) Iv Access Insert/Monitor (06/10/16 00:29) Ecg Monitoring (06/10/16 00:29) Oximetry (06/10/16 00:29) Sodium Chloride 0.9% Flush (Ns Flush) (06/10/16 00:30) Diphenhydramine Inj (Benadryl Inj) (06/10/16 00:30) Metoclopramide Inj (Reglan Inj) (06/10/16 00:30) Hydralazine Inj (Apresoline Inj) (06/10/16 00:30) Losartan (Cozaar) (06/10/16 00:45) Amlodipine (Norvasc) (06/10/16 00:45) Metoprolol Tartrate (Lopressor) (06/10/16 00:45) Us Abdomen Gallbladder (06/10/16 ) Labs Laboratory Tests Test 06/10/16 00:35 White Blood Count 18.2 TH/MM3 Red Blood Count 4.30 MIL/MM3 Hemoglobin 12.3 GM/DL Hematocrit 36.9 % Mean Corpuscular Volume 85.9 FL Mean Corpuscular Hemoglobin 28.7 PG Mean Corpuscular Hemoglobin 33.5 % Concent Red Cell Distribution Width 14.1 % Platelet Count 281 TH/MM3 Mean Platelet Volume 9.8 FL Neutrophils (%) (Auto) 86.9 % Lymphocytes (%) (Auto) 8.0 % Monocytes (%) (Auto) 4.8 % Eosinophils (%) (Auto) 0.0 % Basophils (%) (Auto) 0.3 % Neutrophils # (Auto) 15.8 TH/MM3 Lymphocytes # (Auto) 1.5 TH/MM3 Monocytes # (Auto) 0.9 TH/MM3 Eosinophils # (Auto) 0.0 TH/MM3 Basophils # (Auto) 0.1 TH/MM3 CBC Comment DIFF FINAL Differential Comment Sodium Level 140 MEQ/L Potassium Level 3.6 MEQ/L Chloride Level 100 MEQ/L Carbon Dioxide Level 29.2 MEQ/L Anion Gap 11 MEQ/L Blood Urea Nitrogen 27 MG/DL Creatinine 4.89 MG/DL Estimat Glomerular Filtration 12 ML/MIN Rate Random Glucose 202 MG/DL Calcium Level 9.7 MG/DL Total Bilirubin 0.8 MG/DL Aspartate Amino Transf 14 U/L (AST/SGOT) Alanine Aminotransferase 12 U/L (ALT/SGPT) Alkaline Phosphatase 87 U/L Total Protein 7.8 GM/DL Albumin 3.7 GM/DL Lipase 416 U/L [facility] Medical Decision Making Medical Screen Exam Complete: Yes Emergency Medical Condition: Yes Medical Record Reviewed: Yes Differential Diagnosis 56-year-old male with history of ESRD on HD, diabetes, diabetic gastroparesis, gastritis/esophagitis, Schatzki ring here with nausea and vomiting 24-48 hours. Differential includes gastritis, pancreatitis, hepatobiliary pathology, gastroparesis, dehydration, electrolyte abnormality. Benign abdominal examination making peritoneal pathology unlikely. Narrative Course Patient placed on monitor, IV established and blood obtained. Patient given 20 mg of hydralazine, 50 mg Benadryl, 10 mg Reglan IV. Patient given his home oral Norvasc, Cozaar, metoprolol. Patient had significant improvement of his blood pressure. CBC, CMP, lipase notable for WBC 18.2, he has mild leukocytosis chronically but not to this severity. BUN 27, creatinine 4.89 consistent with his ESRD. Lipase elevated at 416. This is new for patient and therefore ultrasound of the gallbladder was obtained and was unremarkable. Patient was able tolerate oral challenge and will be discharged home. Diagnosis Primary Impression: Diabetic gastroparesis Additional Impression: Nausea & vomiting Qualified Code: R11.2 - Non-intractable vomiting with nausea, unspecified vomiting type Referrals: Primary Care Physician as needed Additional Instructions: Nausea medications as needed. Med/Other Pt SpecificInfo: Prescription(s) given Scripts Ondansetron Odt (Zofran Odt)8 Mg Tab8 Mg SL Q8H PRN (NAUSEA OR VOMITING) #10 TAB Ref 0 Prov:Ina France MD 06/10/16 Promethazine Supp (Phenergan Supp)50 Mg Supp50 Mg RECTAL Q6H PRN (NAUSEA OR VOMITING) #10 SUPP Ref 0 Prov:Ina France MD 06/10/16 Disposition: 01 DISCHARGE HOME Condition: Stable Ina France MD Jun 10, 2016 00:35
[2016-06-10] MEDS ORDERED: LOSARTAN 50 MG TAB PO ONE (00:45)
[2016-06-10] MEDS ORDERED: METOPROLOL TARTRATE 50 MG TAB PO ONE (00:45)
[2016-06-10 00:49] LABS: AUTOMATED NEUTROPHIL # 15.8 TH/MM3 (1.8-7.7); BASOPHIL # 0.1 TH/MM3 (0-0.2); BASOPHIL % 0.3 % (0.0-2.0); HEMATOCRIT 36.9 % (39.0-51.0); HEMO FLAGS DIFF FINAL; LYMPHOCYTE # 1.5 TH/MM3 (1.0-4.8); MEAN CELL VOLUME 85.9 FL (80.0-100.0); MEAN CORPUSCULAR HEMOGLOBIN 28.7 PG (27.0-34.0); MEAN CORPUSCULAR HGB CONC 33.5 % (32.0-36.0); MONO % 4.8 % (0.0-8.0); NEUT % 86.9 % (16.0-70.0); PLATELET COUNT 281 TH/MM3 (150-450); RED CELL DISTRIBUTION WIDTH 14.1 % (11.6-17.2); WHITE BLOOD COUNT 18.2 TH/MM3 (4.0-11.0)
[2016-06-10 01:09] VITALS: BP 146/72; PULSE 79; RESP 18; O2SAT 100
[2016-06-10 01:33] LABS: ALKALINE PHOSPHATASE 87 U/L (45-117); ALT (GPT) 12 U/L (12-78); ANION GAP 11 MEQ/L (5-15); AST (GOT) 14 U/L (15-37); BICARBONATE 29.2 MEQ/L (21.0-32.0); BLOOD UREA NITROGEN 27 MG/DL (7-18); CHLORIDE 100 MEQ/L (98-107); GLOMERULAR FILTRATION RATE 12 ML/MIN (>89); POTASSIUM 3.6 MEQ/L (3.5-5.1); SODIUM (NA) 140 MEQ/L (136-145); TOTAL BILIRUBIN ADULT 0.8 MG/DL (0.2-1.0)
[2016-06-10 02:09] VITALS: BP_SYST 197; BP_SYST 201; BP_DIAS 93; BP_DIAS 99; PULSE 75; PULSE 78; RESP 18; O2SAT 100
--- NOTE | 2016-06-10 03:16 | RADRPT ---
EXAM DATE/TIME: 06/10/2016 02:37 [facility] COMPARISON: CT ABDOMEN & PELVIS W/O CONTRAST, June 02, 2016, 6:48. INDICATIONS : Right upper quadrant pain. MEDICAL HISTORY : Congestive heart failure. Hypercholesterolemia. Myocardial infarction. Neuropathy. Hypertension. Deb roesophageal reflux. Renal failure. Dialysis. Kidney stones. Inguinal hernia. Diabetes. Depression. A nxiety. C.diff. SURGICAL HISTORY : Coronary artery stent. Left arm AV fistula. Right big toe amputation. Colostomy. Right leg femoro popliteal bypass surgery. Colon resection. ENCOUNTER: Initial ACUITY: 1 day PAIN SCORE: 6/10 LOCATION: Right upper quadrant MEASUREMENTS: LIVER: 14.2 cm length COMMON DUCT: 5 mm RIGHT KIDNEY: 9.8 x 4.3 x 5.5 cm FINDINGS: LIVER: Normal echotexture without focal lesion or ductal dilatation. COMMON DUCT: No intraluminal mass or stone visualized. GALLBLADDER: Contains no stones, demonstrates no wall thickening or pericholecystic fluid. PANCREAS: The visualized portions are within normal limits. RIGHT KIDNEY: The right kidney demonstrates increased echotexture. No hydronephrosis or mass is appreciated. CONCLUSION: 1. No abnormality is identified to explain the right upper quadrant pain. The gallbladder has a zaida l appearance without stones. 2. Atrophic and echogenic right kidney characteristic of chronic renal disease. Jan Temple MD on June 10, 2016 at 3:13 Board Certified Radiologist. This report was verified electronically.
[2016-06-10] MEDS ORDERED: PROM1SUP8 RECTAL (03:24)
[2016-06-10] MEDS ORDERED: ZOFR8TAB4 SL (03:24)
[2016-06-10 03:30] VITALS: BP 146/73
== END 2016-06-10 03:42 | disposition home or self-care (01) ==
LOC: NEPE 00:25
DX: E11.43 Type 2 diabetes mellitus with diabetic autonomic (poly)neuropathy (principal); K31.84 Gastroparesis; R11.2 Nausea with vomiting, unspecified; I12.0 Hypertensive chronic kidney disease with stage 5 chronic kidney disease or end stage renal disease; E78.00 Pure hypercholesterolemia, unspecified; I50.9 Heart failure, unspecified; Z99.2 Dependence on renal dialysis; Z87.442 Personal history of urinary calculi; I25.2 Old myocardial infarction
CPT/HCPCS: 76705; 80053; 83690; 85025; 96374; 96375; 99284; J0360; J1200; J2765

== ENCOUNTER 2016-06-22 00:16 | Inpatient (IN) | payer OTHER, MEDICARE ==
[~2016-06-22] VITALS: Ht 162.6 cm; Wt 75.0 kg
[2016-06-22] VITALS (7 sets, daily range): BP systolic 140–180; BP diastolic 76–96; PULSE 102–129; RESP 18–24; TEMP 99.3; O2SAT 97–100
[~2016-06-22 00:16] MED LIST changes: +PROM1SUP8 RECTAL; +ZOFR8TAB4 SL
[2016-06-22 01:13] LABS: AUTOMATED NEUTROPHIL # 12.6 TH/MM3 (1.8-7.7); BASOPHIL % 0.1 % (0.0-2.0); HEMATOCRIT 35.7 % (39.0-51.0); HEMO FLAGS DIFF FINAL; LYMPH % 3.8 % (9.0-44.0); LYMPHOCYTE # 0.5 TH/MM3 (1.0-4.8); MEAN CELL VOLUME 86.8 FL (80.0-100.0); MEAN CORPUSCULAR HGB CONC 33.4 % (32.0-36.0); MONO % 4.5 % (0.0-8.0); NEUT % 91.6 % (16.0-70.0); PLATELET COUNT 276 TH/MM3 (150-450); RED BLOOD COUNT 4.12 MIL/MM3 (4.50-5.90); RED CELL DISTRIBUTION WIDTH 13.8 % (11.6-17.2); WHITE BLOOD COUNT 13.8 TH/MM3 (4.0-11.0)
--- NOTE | 2016-06-22 01:36 | RADRPT ---
EXAM DATE/TIME: 06/22/2016 01:06 [facility] COMPARISON: CHEST SINGLE AP, April 18, 2016, 7:58. INDICATIONS : Patient has been vomiting since yesterday. MEDICAL HISTORY : Congestive heart failure. Hypercholesterolemia. Myocardial infarction. Neuropathy. SURGICAL HISTORY : Coronary artery stent. Left arm AV fistula. Right big toe amputation. Colostomy. ENCOUNTER: Initial ACUITY: 2 days PAIN SCORE: 0/10 LOCATION: Bilateral chest FINDINGS: The cardiac silhouette is enlarged in transverse diameter. The lungs are free of acute parenchymal op acity. No effusions are identified. A permacath is in place via right internal jugular approach with its tip in the superior vena cava. The aortic knob is prominent with tortuosity of the descending tho racic aorta. CONCLUSION: 1. Cardiomegaly. No acute pulmonary disease. James Pinto MD on June 22, 2016 at 1:34 Board Certified Radiologist. This report was verified electronically.
[2016-06-22 01:37] LABS: BICARBONATE 22.2 MEQ/L (21.0-32.0); POTASSIUM 4.4 MEQ/L (3.5-5.1)
[2016-06-22] MEDS ORDERED: VANCOMYCIN INJ 1,000 MG in SODIUM CHLOR 0.9% 250 ML INJ 250 ML IV ONE (02:00)
[2016-06-22] MEDS ORDERED: PIPERACIL-TAZO 2.25 GM PREMIX 50 ML IV ONE (02:00)
--- NOTE | 2016-06-22 02:00 | RADRPT ---
EXAM DATE/TIME: 06/22/2016 01:43 [facility] COMPARISON: CT ABDOMEN & PELVIS W/O CONTRAST, June 02, 2016, 6:48. INDICATIONS : Epigastric pain along with nausea and vomiting. ORAL CONTRAST: No oral contrast ingested. RADIATION DOSE: 6.19 CTDIvol (mGy) MEDICAL HISTORY : Cardiovascular disease. Hypertension. Diabetes mellitus type 2.GERD SURGICAL HISTORY : Colon resection. ENCOUNTER: Initial ACUITY: 2 days PAIN SCALE: 9/10 LOCATION: epigastric abdomen TECHNIQUE: Volumetric scanning of the abdomen and pelvis was performed. Using automated exposure control and ad justment of the mA and/or kV according to patient size, radiation dose was kept as low as reasonably achievable to obtain optimal diagnostic quality images. FINDINGS: Examination of the lung bases demonstrates no abnormality. No pleural fluid is identified. No pulmona ry nodules are present. A moderate size hiatal hernia is present. The liver and spleen are normal in size and no focal defects are identified. The gallbladder and panc reas are unremarkable. No intrahepatic or extrahepatic ductal dilatation is seen. The adrenal glands are unremarkable. The kidneys are small and atrophic bilaterally. An ostomy is present in the right s jamar of the abdomen at the level of the transverse colon with a large amount of fecal material in the remaining right colon. The prostate gland is moderately enlarged impinging on the bladder base. A left inguinal hernia is pr esent containing small bowel as well as fluid but there are no signs of incarceration. The bladder ap pears normal. No wall thickening or intraluminal masses are identified. CONCLUSION: 1. No evidence of acute abdominal or pelvic process. No masses are identified. 2. Left hemicolectomy with ostomy and large amount of fecal material within the remaining colon 3. Left inguinal hernia without incarceration James Pinto MD on June 22, 2016 at 1:52 Board Certified Radiologist. This report was verified electronically.
[2016-06-22] MEDS ORDERED: ONDANSETRON HCL 4 MG/2 ML VIAL ONE (02:31)
--- NOTE | 2016-06-22 02:42 | PD ---
HPI Chief Complaint: GI Complaint Time Seen by Provider: 01:10 Travel History International Travel<30 days: No Contact w/Intl Traveler<30days: No Traveled to known affect area: No History of Present Illness HPI 56yo M with PMH of ESRD on HD //Sun presents to the ED with c/o generalized abdominal pain for a few days. +NBNB vomiting today. Pt has colostomy bag and states he does not remember when the last time he had stool was, maybe 2 days ago. Pt last had hemodialysis on Sunday. While waiting in the waiting room, pt developed sob. Denies any chest pain or fever. Pt states he still makes urine. PFSH Past Medical History Hx Anticoagulant Therapy: No Blood Disorders: No Anxiety: Yes Depression: Yes Heart Rhythm Problems: No Cancer: No Cardiac Catheterization: Yes Cardiovascular Problems: Yes (Rt. leg vascular bypass ) High Cholesterol: Yes Chest Pain: Yes Congestive Heart Failure: Yes COPD: No Cerebrovascular Accident: No Diabetes: Yes Patient Takes Glucophage: No Dialysis: Yes (HAS FISTULA IN L ARM,FOR FUTURE) Diminished Hearing: No Endocrine: No Gastrointestinal Disorders: Yes GERD: Yes Genitourinary: No Headaches: No Hypertension: Yes Immune Disorder: No Inguinal Hernia: Yes Implanted Vascular Access Dvce: Yes (L FOREARM) Kidney Stones: Yes Musculoskeletal: No Neurologic: Yes (neuropathy) Psychiatric: Yes Reproductive: No Respiratory: Yes ( PNA) Immunizations Current: Yes Migraines: No Myocardial Infarction: Yes (2003) Renal Failure: Yes (CKD, dialysis , , SUN) Seizures: No Thyroid Disease: No Influenza Vaccination: Yes Past Surgical History Abdominal Surgery: Yes (PART OF COLON AND LARGE INTESTINE REMOVED, COLOSTOMY PLACEMENT) Body Medical Devices: Cardiac Stent Cardiac Surgery: Yes (cardiac cath with stent, ) Coronary Stent: Yes Ear Surgery: No Endocrine Surgery: No Eye Surgery: No Genitourinary Surgery: No Gynecologic Surgery: No Neurologic Surgery: No Oral Surgery: No Thoracic Surgery: No Other Surgery: Yes (LFA fistula, Teeth pulled, colostomy, right leg fem pop) Social History Alcohol Use: No Tobacco Use: Yes (2 PPD) Substance Use: No Allergies-Medications (Allergen,Severity, Reaction): Coded Allergies: No Known Allergies (Unverified , 06/22/16) Reported Meds & Prescriptions Reported Meds & Active Scripts Active Zofran Odt (Ondansetron Odt) 8 Mg Tab 8 Mg SL Q8H PRN Phenergan Supp (Promethazine HCl) 50 Mg Supp 50 Mg RECTAL Q6H PRN Phenergan (Promethazine HCl) 25 Mg Tab 25 Mg PO Q6H PRN Cozaar (Losartan Potassium) 50 Mg Tab 50 Mg PO DAILY Pantoprazole (Pantoprazole Sodium) 40 Mg Tab 40 Mg PO DAILY Reported Tramadol (Tramadol HCl) 50 Mg Tab 100 Mg PO BID PRN Norvasc (Amlodipine Besylate) 10 Mg Tab 10 Mg PO DAILY Aspir-81 (Aspirin) 81 Mg Tabdr 81 Mg PO DAILY Buspirone (Buspirone HCl) 10 Mg Tab 10 Mg PO BID Citalopram (Citalopram Hydrobromide) 20 Mg Tab 20 Mg PO DAILY Metoprolol Tartrate 50 Mg Tab 50 Mg PO BID Review of Systems Except as stated in HPI: all other systems reviewed are Neg Physical Exam Narrative GENERAL: 56yo M in moderate distress. SKIN: Warm and dry. HEAD: Atraumatic. Normocephalic. EYES: Pupils equal and round. No scleral icterus. No injection or drainage. ENT: No nasal bleeding or discharge. Mucous membranes pink and moist. NECK: Trachea midline. No JVD. CARDIOVASCULAR: Regular rate and rhythm. No murmur appreciated. RESPIRATORY: + accessory muscle use. Clear to auscultation. Breath sounds equal bilaterally. GASTROINTESTINAL: Abdomen soft, +Colostomy bag, no stool. Mild diffuse tenderness. No rebound tenderness or guarding. MUSCULOSKELETAL: No obvious deformities. No clubbing. No cyanosis. +Lower ext edema. NEUROLOGICAL: Awake and alert. No obvious cranial nerve deficits. Motor grossly within normal limits. Normal speech. PSYCHIATRIC: Appropriate mood and affect; insight and judgment normal. Data Data Last Documented VS Vital Signs Date Time Temp Pulse Resp B/P Pulse Ox O2 Delivery O2 Flow Rate FiO2 06/22/16 03:00 129 20 176/96 100 Room Air 06/22/16 00:26 99.3 Orders Complete Blood Count With Diff (06/22/16 00:48) Basic Metabolic Panel (Bmp) (06/22/16 00:48) Chest, Single Ap (06/22/16 ) Blood Culture (06/22/16 01:19) Lactic Acid Sepsis Protocol (06/22/16 01:19) Ct Abd/Pel W/O Iv Contrast (06/22/16 ) Vancomycin Inj (Vancomycin Inj) (06/22/16 02:00) Piperacil-Tazo 2.25 Gm Premix (Zosyn 2.2 (06/22/16 02:00) Urinalysis - C+S If Indicated (06/22/16 02:26) Ondansetron Inj (Zofran Inj) (06/22/16 02:31) Troponin I (06/22/16 02:31) Ondansetron Inj (Zofran Inj) (06/22/16 02:45) Morphine Inj (Morphine Inj) (06/22/16 02:45) Electrocardiogram (06/22/16 ) Admit Order (Ed Use Only) (06/22/16 03:04) Labs Laboratory Tests Test 06/22/16 06/22/16 00:52 01:35 White Blood Count 13.8 TH/MM3 Red Blood Count 4.12 MIL/MM3 Hemoglobin 11.9 GM/DL Hematocrit 35.7 % Mean Corpuscular Volume 86.8 FL Mean Corpuscular Hemoglobin 29.0 PG Mean Corpuscular Hemoglobin 33.4 % Concent Red Cell Distribution Width 13.8 % Platelet Count 276 TH/MM3 Mean Platelet Volume 9.7 FL Neutrophils (%) (Auto) 91.6 % Lymphocytes (%) (Auto) 3.8 % Monocytes (%) (Auto) 4.5 % Eosinophils (%) (Auto) 0.0 % Basophils (%) (Auto) 0.1 % Neutrophils # (Auto) 12.6 TH/MM3 Lymphocytes # (Auto) 0.5 TH/MM3 Monocytes # (Auto) 0.6 TH/MM3 Eosinophils # (Auto) 0.0 TH/MM3 Basophils # (Auto) 0.0 TH/MM3 CBC Comment DIFF FINAL Differential Comment Sodium Level 140 MEQ/L Potassium Level 4.4 MEQ/L Chloride Level 105 MEQ/L Carbon Dioxide Level 22.2 MEQ/L Anion Gap 13 MEQ/L Blood Urea Nitrogen 25 MG/DL Creatinine 4.87 MG/DL Estimat Glomerular Filtration 12 ML/MIN Rate Random Glucose 172 MG/DL Calcium Level 8.3 MG/DL Troponin I 0.02 NG/ML Lactic Acid Level 3.4 mmol/L MDM Medical Decision Making Medical Screen Exam Complete: Yes Emergency Medical Condition: Yes Interpretation(s) EKG: Sinus tachycardia at 123bpm. LAD. Narrow QRS. No peak T waves. Differential Diagnosis Colitis vs. obstruction vs. UTI vs. dehydration vs. electrolyte abnormality Pneumonia vs. ACS Narrative Course 56yo M here with abdominal pain. Labs reviewed, leukocytosis at 13.8, improved from few days ago. K: 4.4. BUN/Creatinine at baseline. Lactic acid is elevated at 3.4. Glucose 172. Troponin negative at 0.02. Pt is noted to be tachycardic. CTa/p showed no evidence of acute abdominal or pelvic process. Left hemicolectomy with ostomy and large amount of fecal material within remaining colon. Left inguinal hernia without incarceration. CXR showed cardiomegaly. No acute pulmonary disease. Pt given vancomycin and zosyn empirically. Pt also given zofran. Discussed with Dr. Carranza and accepted. Diagnosis Primary Impression: Sepsis Qualified Code: A41.9 - Sepsis, due to unspecified organism Additional Impression: Dehydration Admitting Information Admitting Physician Requests: Admit Mady Orona DO Jun 22, 2016 02:42
[2016-06-22] MEDS ORDERED: MORPHINE SULFATE 4 MG/ML INJ IV PUSH ONE (02:45)
[2016-06-22] MEDS ORDERED: ONDANSETRON HCL 4 MG/2 ML VIAL IV PUSH ONE (02:45)
[2016-06-22] MEDS ORDERED: BISACODYL 10 MG SUPP PR PRN (03:30)
[2016-06-22] MEDS ORDERED: PROCHLORPERAZINE INJ 10 MG/2 ML VIAL IVS PRN (03:30)
[2016-06-22] MEDS ORDERED: SODIUM CHLORID 0.9% 500 ML INJ 500 ML IV SCH (03:30)
[2016-06-22] MEDS ORDERED: MORPHINE SULFATE 4 MG/ML INJ IV PRN ×2 (03:30)
[2016-06-22] MEDS ORDERED: PANTOPRAZOLE SODIUM 40 MG VIAL IV PUSH ONE (03:30)
[2016-06-22] MEDS ORDERED: ONDANSETRON HCL 4 MG/2 ML VIAL IVP PRN (03:30)
[2016-06-22] MEDS ORDERED: ACETAMINOPHEN 325 MG TAB PO PRN ×2 (03:30→13:15)
[2016-06-22] MEDS ORDERED: SODIUM CHLORIDE 0.9% FLUSH 5 ML FLUSH FLUSH PRN (03:30)
[2016-06-22] MEDS ORDERED: CIPROFLOXACIN 400 MG PREMIX 200 ML IV SCH (03:30)
[2016-06-22 03:38] LABS: LACTIC ACID GHOST NOT REPORTABLE
[2016-06-22] MEDS ORDERED: GLUCAGON 1 MG/ML VIAL OTHER PRN (04:30)
[2016-06-22] MEDS ORDERED: DEXTROSE 50% IN WATER 50 ML VIAL(D50) IV PUSH PRN (04:30)
--- NOTE | 2016-06-22 04:37 | HHI.HP ---
HPI Service [facility] Hospitalists Primary Care Physician [facility] Admission Diagnosis Sepsis with no known source, dehydration Diagnoses: (1) Sepsis Diagnosis: Principal (2) Intractable nausea and vomiting Diagnosis: Principal (3) Lactic acidosis Diagnosis: Principal (4) Gastroparesis Diagnosis: Principal (5) DM (diabetes mellitus) Diagnosis: Principal (6) ESRD on hemodialysis Diagnosis: Principal (7) HTN (hypertension) Diagnosis: Principal Travel History International Travel<30 Days: No Contact w/Intl Traveler <30 Da: No Traveled to Known Affected Are: No History of Present Illness This is a 56-year-old male with a PMH of Anxiety, Depression, HTN, Gastroparesis , ESRD on HD T/Th/Sat and DM who was brought to the ER by EMS secondary to abdominal pain, nausea and vomiting. Pt is poor historian, but denies fever or chills. H/o Colostomy, reports no change in stool. Previous admit 06/02/16 for similar complaints however w/ hematemesis at that time, s/p eval by Dr. Gaspar w / GI, recommendation for conservative management as resolution. States he's had persistent nausea/vomiting since discharge. Multiple episodes of non- bloody emesis while in ER. On arrival, BP 180/81, HR 108, O2 sat 100% on RA, Temp 99.3. Creatinine 4.87, WBC 4.89 on 06/10/16. Lactic Acid 3.4. WBC 13.8, previously 18.2 on 06/10/16. CXR with no acute findings. CT Abd/Pelvis w/ no acute abdominal process, left hemicolectomy with ostomy and large amount of fecal material within the remaining colon. S/p Blood Cultures, Vanc/Zosyn in ER. Review of Systems Except as stated in HPI: all other systems reviewed are Neg ROS: 14 point review of systems otherwise negative. Past Family Social History Past Medical History PMH: Anxiety, Depression, HTN, Gastroparesis, ESRD on HD T/Th/Sat and DM Past Surgical History PAST SURGICAL HISTORY: Colectomy, Cardiac Stent, LUE AV Fistula Allergies: Coded Allergies: No Known Allergies (Unverified , 06/22/16) Family History PAST FAMILY HISTORY: Reviewed. No h/o DM or CAD Social History PAST SOCIAL HISTORY: Smokes 1/2ppd. Negative for alcohol or drugs. Physical Exam Vital Signs Vital Signs Date Time Temp Pulse Resp B/P Pulse Ox O2 Delivery O2 Flow Rate FiO2 06/22/16 00:26 99.3 108 24 180/81 100 Physical Exam PE: GENERAL: Middle-aged white male in mild distress secondary to nausea and vomiting, appears much older than stated age. HEENT: PERRLA, EOMI. No scleral icterus or conjunctival pallor. No lid lag or facial droop. CARDIOVASCULAR: Regular rate and rhythm. No obvious murmurs to auscultation. No chest tenderness to palpation. RESPIRATORY: No obvious rhonchi or wheezing. Clear to auscultation. Breath sounds equal bilaterally. GASTROINTESTINAL: Abdomen soft, non-tender, nondistended. BS normal. Colostomy in place, no signs of infection MUSCULOSKELETAL: Extremities without clubbing, cyanosis, or edema. No obvious deformities. NEUROLOGICAL: Awake, alert and oriented x4. No focal neurologic deficits. Moving both upper and lower extremities spontaneously. Laboratory Laboratory Tests Test 06/22/16 06/22/16 00:52 01:35 White Blood Count 13.8 Red Blood Count 4.12 Hemoglobin 11.9 Hematocrit 35.7 Mean Corpuscular Volume 86.8 Mean Corpuscular Hemoglobin 29.0 Mean Corpuscular Hemoglobin 33.4 Concent Red Cell Distribution Width 13.8 Platelet Count 276 Mean Platelet Volume 9.7 Neutrophils (%) (Auto) 91.6 Lymphocytes (%) (Auto) 3.8 Monocytes (%) (Auto) 4.5 Eosinophils (%) (Auto) 0.0 Basophils (%) (Auto) 0.1 Neutrophils # (Auto) 12.6 Lymphocytes # (Auto) 0.5 Monocytes # (Auto) 0.6 Eosinophils # (Auto) 0.0 Basophils # (Auto) 0.0 CBC Comment DIFF FINAL Differential Comment Sodium Level 140 Potassium Level 4.4 Chloride Level 105 Carbon Dioxide Level 22.2 Anion Gap 13 Blood Urea Nitrogen 25 Creatinine 4.87 Estimat Glomerular Filtration 12 Rate Random Glucose 172 Calcium Level 8.3 Troponin I 0.02 Lactic Acid Level 3.4 Date/Time Procedure Status Source Growth 06/22/16 01:35 Aerobic Blood Culture Received Blood Peripheral Pending 06/22/16 01:35 Anaerobic Blood Culture Received Blood Peripheral Pending Result Diagram: 06/22/165106/22/1651 Assessment and Plan Problem List: (1) Sepsis ICD Code: A41.9 Status: Resolved (2) Intractable nausea and vomiting ICD Code: R11.2 Status: Acute (3) Gastroparesis ICD Code: K31.84 Status: Acute (4) Lactic acidosis ICD Code: E87.2 Status: Acute (5) ESRD on hemodialysis ICD Code: N18.6 Status: Chronic (6) DM (diabetes mellitus) ICD Code: E11.9 Status: Chronic (7) HTN (hypertension) ICD Code: I10 Status: Chronic Assessment and Plan A/P: 1. Sepsis: Temp 99.3, HR 108, WBC 13, Source-Unclear, CXR w/ no acute findings, CT Abd/Pelvis negative for acute intra-abdominal findings, images reviewed by me. S/p Blood Cultures in ER, Vanc/Zosyn. Lactic Acid 3.4, IVF- caution w/ ESRD, repeat labs in am. 2. Intractable Nausea/Vomiting: Likely secondary to h/o Gastroparesis. CT Abd /Pelvis w/ no acute pathology. Zofran prn, Compazine prn, Reglan q8h, Protonix IV. Non-bloody emesis while in ER. S/p eval by Dr. Gaspar w/ GI on previous admit, will Consult GI for further recommendations. 3. Lactic Acidosis: Lactate 3.4, unclear if infectious etiology, more likely secondary to dehydration from intractable nausea/vomiting and HD. 500ml IVF @ 100ml/hr. Repeat Lactic Acid level. Continue w/ IV Abx for possible sepsis. 4. Gastroparesis: cautious IVF, Protonix IV, Compazine prn, Reglan q8h. 5. DM: Sliding scale w/ Accu-Cheks. Check Hgb A1c. 6. ESRD on HD: T//Sun, s/p HD on Sunday w/ no complications. Follows w/ Dr. Kennedy, will consult to resume HD as scheduled. 7. HTN: BP 180's systolic on arrival, likely compounded by acute nausea/ vomiting. Repeat BP 134/61. Will continue to monitor. 8. DVT Prophylaxis: SCD/Teds. 9. Social work for d/c planning as needed. 10. Case discussed w/ ER physician at length. Physician Certification 2 Midnight Certification Type: Admission for Inpatient Services Order for Inpatient Services The services are ordered in accordance with Medicare regulations or non- Medicare payer requirements, as applicable. In the case of services not specified as inpatient-only, they are appropriately provided as inpatient services in accordance with the 2-midnight benchmark. Estimated LOS (days): 2 days is the estimated time the patient will need to remain in the hospital, assuming treatment plan goals are met and no additional complications. Post-Hospital Plan: Not yet determined Darleen Carranza MD Jun 22, 2016 04:36
[2016-06-22] MEDS: METOCLOPRAMIDE HCL 10 MG/2 ML VIAL IV PUSH SCH ×2 (06:05→14:00)
[2016-06-22] MEDS: metroNIDAZOLE 500 MG INJ 100 ML IV SCH ×2 (06:05→12:30)
[2016-06-22] MEDS: INSULIN ASPART SUPPLEMENTAL SCALE SQ SCH ×3 (07:00→16:00)
--- NOTE | 2016-06-22 08:35 | EKG ---
Date Performed: 06/22/2016 Time Performed: 02:55:58 PTAGE: 56 years EKG: SINUS TACHYCARDIA WITH FIRST DEGREE AV BLOCK BORDERLINE LEFT AXIS DEVIATION LEFT VENTRICULA R HYPERTROPHY AND ST-T CHANGE ABNORMAL ECG PREVIOUS TRACING : 06/02/2016 03.26 DOCTOR: Syd Collins Interpretating Date/Time 06/22/2016 08:33:30
[2016-06-22] MEDS ORDERED: SODIUM CHLORIDE 0.9% FLUSH 5 ML FLUSH FLUSH SCH (09:00)
--- NOTE | 2016-06-22 09:21 | PD.CONS ---
HPI History of Present Illness This is a 56 year male with a hx of gastroparesis, gastritis, esophagitis, ischemic colitis, and ESRD, who is on HD on Sunday//Sunday. He came to the ER for evaluation of nausea/vomiting. He reports that he has had intermittent nausea and vomiting for intermittently for months. This latest episode began Sunday and he reports that he has been having persistent nausea with intermittent vomiting since that time with bilious material, but no hematemesis. His symptoms are aggravated by food intake. He has been on reglan in the past and had improvement with this, but not currently taking. He has been taking Protonix and Phenergan as an outpatient, but still has frequent heartburn several times a week. He has not had any change in his stool output and denies any melena or hematochezia. He was evaluated with EGD (04/21/16)--- ---> duodenal bulb nodule, gastritis antrum, hiatal hernia, schatzki's ring, dilatation Savary 14, retroflexed views revealed a hiatal hernia. Pathology with peptic duodenitis, gastric antral mucosal biopsy with mild chronic nonspecific gastritis, negative for intestinal metaplasia, diogenes stain negative for helicobacter, esophageal mucosal biopsies without significant histopathologic abnormality negative for esophagitis. He was then seen back in May for nausea/vomiting. He was started on reglan at that time and his symptoms improved. However, he is not currently taking this. He denies any family hx of esophageal, gastric or colorectal cancer. Of note, he does take Plavix/ASA. He does not take any ibuprofen or aleve. He does not drink alcohol. He denies any sick contacts, suspicious food, or travel. He has a hx of ischemic colitis and underwent hemicolectomy with colostomy about a year ago. (Mya Christian) PFSH Past Medical History End-stage renal disease Congestive heart failure Hypertension Secondary hyperparathyroidism renal disease Diabetes mellitus Peripheral arterial disease/peripheral vascular disease Anemia renal disease Hx of ischemic colitis requiring partial colectomy and colostomy Hx gangrene right great toe Gastritis/Esophagitis Atherosclerotic vascular disease Depression/Anxiety CDiff Mitral regurgitation Secondary hyperparathyroidism secondary to Vitamin D Deficiency Gastroparesis Past Surgical History Bypass of the right leg. Amputation of the right big toe. Hemicolectomy/Colostomy. PCI status post stent 2 years ago after an [place]. Left av fistula Right tunneled subclavian dialysis catheter placement EGD (Mya Christian) Coded Allergies: No Known Allergies (Unverified , 06/22/16) Medications Allergies Coded Allergies Type Severity Reaction Last Updated Verified No Known Allergies 06/22/16 No Active Scripts Medications Dose Route/Sig Days Date Category Zofran Odt (Ondansetron Odt) 8 Mg Tab 8 Mg SL Q8H PRN 06/10/16 Rx Phenergan Supp (Promethazine HCl) 50 Mg Supp 50 Mg RECTAL Q6H PRN 06/10/16 Rx Phenergan (Promethazine HCl) 25 Mg Tab 25 Mg PO Q6H PRN 06/09/16 Rx Tramadol (Tramadol HCl) 50 Mg Tab 100 Mg PO BID PRN 06/02/16 Reported Cozaar (Losartan Potassium) 50 Mg Tab 50 Mg PO DAILY 04/19/16 Rx Pantoprazole (Pantoprazole Sodium) 40 Mg Tab 40 Mg PO DAILY 04/19/16 Rx Norvasc (Amlodipine Besylate) 10 Mg Tab 10 Mg PO DAILY 04/18/16 Reported Aspir-81 (Aspirin) 81 Mg Tabdr 81 Mg PO DAILY 04/18/16 Reported Buspirone (Buspirone HCl) 10 Mg Tab 10 Mg PO BID 04/18/16 Reported Citalopram (Citalopram Hydrobromide) 20 Mg Tab 20 Mg PO DAILY 04/18/16 Reported Metoprolol Tartrate 50 Mg Tab 50 Mg PO BID 04/18/16 Reported Family History Patient states that brother of an cerebral hemorrhage. Mother had leukemia. Social History Patient smokes half a pack per day. No ETOH No illicit drugs. (Mya Christian) Review of Systems Constitutional: COMPLAINS OF: Fatigue, Weight loss, Change in appetite Respiratory: DENIES: Cough Cardiovascular: DENIES: Chest pain Gastrointestinal: COMPLAINS OF: Abdominal pain (mild cramping), Diarrhea, Nausea, Vomiting, Heartburn, DENIES: Black stools, Bloody stools, Constipation Musculoskeletal: DENIES: Joint pain, Back pain Hematologic/lymphatic: DENIES: Bruising Neurologic: DENIES: Headache Psychiatric: DENIES: Confusion (Mya Christian) GI Exam Vitals I&O Vital Signs Date Time Temp Pulse Resp B/P Pulse Ox O2 Delivery O2 Flow Rate FiO2 06/22/16 04:00 105 20 146/76 97 Room Air 06/22/16 03:00 129 20 176/96 100 Room Air 06/22/16 02:00 128 20 178/94 100 Room Air 06/22/16 00:26 99.3 108 24 180/81 100 Imaging Last Impressions Chest X-Ray 06/22/16 0000 Signed Impressions: Service Date/Time: June 01:06 - CONCLUSION: 1. Cardiomegaly. No acute pulmonary disease. James Pinto MD Abdomen/Pelvis CT 06/22/16 0000 Signed Impressions: Service Date/Time: June 01:43 - CONCLUSION: 1. No evidence of acute abdominal or pelvic process. No masses are identified. 2. Left hemicolectomy with ostomy and large amount of fecal material within the remaining colon 3. Left inguinal hernia without incarceration James Pinto MD Laboratory Test 06/22/16 06/22/16 06/22/16 00:52 01:35 04:10 White Blood Count 13.8 TH/MM3 Red Blood Count 4.12 MIL/MM3 Hemoglobin 11.9 GM/DL Hematocrit 35.7 % Mean Corpuscular Volume 86.8 FL Mean Corpuscular Hemoglobin 29.0 PG Mean Corpuscular Hemoglobin 33.4 % Concent Red Cell Distribution Width 13.8 % Platelet Count 276 TH/MM3 Mean Platelet Volume 9.7 FL Neutrophils (%) (Auto) 91.6 % Lymphocytes (%) (Auto) 3.8 % Monocytes (%) (Auto) 4.5 % Eosinophils (%) (Auto) 0.0 % Basophils (%) (Auto) 0.1 % Neutrophils # (Auto) 12.6 TH/MM3 Lymphocytes # (Auto) 0.5 TH/MM3 Monocytes # (Auto) 0.6 TH/MM3 Eosinophils # (Auto) 0.0 TH/MM3 Basophils # (Auto) 0.0 TH/MM3 CBC Comment DIFF FINAL Differential Comment Sodium Level 140 MEQ/L Potassium Level 4.4 MEQ/L Chloride Level 105 MEQ/L Carbon Dioxide Level 22.2 MEQ/L Anion Gap 13 MEQ/L Blood Urea Nitrogen 25 MG/DL Creatinine 4.87 MG/DL Estimat Glomerular Filtration 12 ML/MIN Rate Random Glucose 172 MG/DL Calcium Level 8.3 MG/DL Troponin I 0.02 NG/ML Lactic Acid Level 3.4 mmol/L 1.2 mmol/L Date/Time Procedure Status Source Growth 06/22/16 01:35 Aerobic Blood Culture Received Blood Peripheral Pending 06/22/16 01:35 Anaerobic Blood Culture Received Blood Peripheral Pending Physical Examination HEENT: Pupils round and reactive to light; normocephalic; atraumatic; no jaundice. CHEST: CTA CARDIAC: RRR ABDOMEN: Soft, nondistended, nontender; no hepatosplenomegaly; bowel sounds are present in all four quadrants. right sided colostomy- light brown stool EXTREMITIES: No clubbing, cyanosis, or edema. SKIN: Normal; no rash; no jaundice. COB SAWYER: No focal deficits; alert and oriented times three. (Mya Christian) Assessment and Plan Plan ASSESSMENT: - Recurrent N/V, Abdominal pain in patient with gastroparesis. EGD (04/21/16)-- ----> duodenal bulb nodule, gastritis antrum, hiatal hernia, schatzki's ring, dilatation Savary 14, retroflexed views revealed a hiatal hernia. Pathology with peptic duodenitis, gastric antral mucosal biopsy with mild chronic nonspecific gastritis, negative for intestinal metaplasia, diogenes stain negative for helicobacter, esophageal mucosal biopsies without significant histopathologic abnormality negative for esophagitis. He was then seen back in May for nausea/vomiting. He has improved with reglan in the past, but was not taking this at home. He has been taking protonix and phenergan. He is now on reglan. Cont. Reglan, PPI, Zofran prn. If no improvement consider bethanechol and if still no improvement, could consider botox injections. Clear liquids. - GERD with recent gastritis, esophagitis. PPI - Leukocytosis, mild with tachycardia- improved with ivf. On abx. ? related to vomiting/dehydration. - ESRD, on HD T//Sun - Anemia of chronic disease. HH stable. .7. - Hx ischemic colitis, s/p hemicolectomy with colostomy. - Congestive heart failure, Hypertension, Secondary hyperparathyroidism renal disease, Diabetes mellitus, Peripheral arterial disease/peripheral vascular disease Anemia renal disease, Atherosclerotic vascular disease, Depression/Anxiety per primary PLAN: - Clear liquids - Cont. IVF - Cont. PPI - Cont. Reglan - Cont. Zofran prn - If no improvement consider bethanechol and/or botox injections - Supportive care - Further recommendations to follow based on results of above - PT seen and examined by Dr. Gaspar and myself and this note is written on her behalf (Mya Christian) Physician Comments seen, examined agree with above better control of bp and glucose ok to dc home from gi point (Brittnee Gaspar MD) Mya Christian Jun 22, 2016 09:21 Brittnee Gaspar MD Jun 22, 2016 16:56
[2016-06-22] MEDS ORDERED: SODIUM CHLOR 0.9% 1000 ML INJ 1,000 ML IV PRN ×3 (13:11)
[2016-06-22] MEDS ORDERED: SODIUM CHLORIDE 0.9% FLUSH 5 ML FLUSH IVF PRN (13:15)
[2016-06-22] MEDS ORDERED: ONDANSETRON HCL 4 MG/2 ML VIAL IV PRN (13:15)
[2016-06-22] MEDS ORDERED: MANNITOL 12.5 GM/50 ML VIAL IV PRN (13:15)
[2016-06-22] MEDS ORDERED: NITROGLYCERIN 0.4 MG SL 25 TABS/BTL SL PRN (13:15)
[2016-06-22] MEDS ORDERED: diphenhydrAMINE HCL 25 MG CAP PO PRN (13:15)
[2016-06-22] MEDS ORDERED: GENTAMICIN SULFATE (DIALYSIS USE ONLY) 20 MG/2 ML VIAL IV PRN (13:15)
[2016-06-22] MEDS ORDERED: cloNIDine HCL 0.1 MG TAB PO PRN (13:15)
[2016-06-22] MEDS ORDERED: GELATIN 12 MM/7 MM FOAM TOP PRN (13:15)
[2016-06-22] MEDS ORDERED: HEPARIN SODIUM - IV 10,000 UNITS/10 ML VIAL PRN (13:15)
[2016-06-22] MEDS ORDERED: HEPARIN SODIUM - IV 10,000 UNITS/10 ML VIAL IVF PRN (13:15)
[2016-06-22] MEDS ORDERED: ALBUMIN HUMAN 25% 25 GM/100 ML BAGP IV PRN (13:15)
--- NOTE | 2016-06-22 14:15 | HHI.PR ---
Subjective Remarks Follow-up sepsis/intractable nausea and vomiting 06/22/16-patient stated examined, with improve episodes of nausea and vomiting this morning, afebrile Objective Vitals Vital Signs Date Time Temp Pulse Resp B/P Pulse Ox O2 Delivery O2 Flow Rate FiO2 06/22/16 12:24 108 18 157/87 97 Room Air 06/22/16 09:13 106 18 140/76 100 Room Air 06/22/16 04:00 105 20 146/76 97 Room Air 06/22/16 03:00 129 20 176/96 100 Room Air 06/22/16 02:00 128 20 178/94 100 Room Air 06/22/16 00:26 99.3 108 24 180/81 100 Result Diagram: 06/22/16 0052 06/22/16 0052 Imaging Last Impressions Chest X-Ray 06/22/16 0000 Signed Impressions: Service Date/Time: June 01:06 - CONCLUSION: 1. Cardiomegaly. No acute pulmonary disease. James Pinto MD Abdomen/Pelvis CT 06/22/16 0000 Signed Impressions: Service Date/Time: June 01:43 - CONCLUSION: 1. No evidence of acute abdominal or pelvic process. No masses are identified. 2. Left hemicolectomy with ostomy and large amount of fecal material within the remaining colon 3. Left inguinal hernia without incarceration James Pinto MD Objective Remarks GENERAL: NAD SKIN: Warm and dry. HEAD: Normocephalic. EYES: No scleral icterus. No injection or drainage. NECK: Supple, trachea midline. No JVD or lymphadenopathy. CARDIOVASCULAR: Regular rate and rhythm without murmurs, gallops, or rubs. RESPIRATORY: Breath sounds equal bilaterally. No accessory muscle use. Permacath in place GASTROINTESTINAL: Abdomen soft, non-tender, nondistended. MUSCULOSKELETAL: No cyanosis, or edema. BACK: Nontender without obvious deformity. No CVA tenderness. A/P Problem List: (1) Sepsis ICD Code: A41.9 Status: Resolved (2) Intractable nausea and vomiting ICD Code: R11.2 Status: Acute (3) Gastroparesis ICD Code: K31.84 Status: Acute (4) Lactic acidosis ICD Code: E87.2 Status: Acute (5) ESRD on hemodialysis ICD Code: N18.6 Status: Chronic (6) DM (diabetes mellitus) ICD Code: E11.9 Status: Chronic (7) HTN (hypertension) ICD Code: I10 Status: Chronic Assessment and Plan 56-year-old male with 1. Severe Sepsis: Source-Unclear, CXR w/ no acute findings, CT Abd/Pelvis negative for acute intra-abdominal findings. Currently on Vanc/Zosyn pending culture report. 2. Intractable Nausea/Vomiting: Likely secondary to h/o Gastroparesis. CT Abd /Pelvis w/ no acute pathology. Zofran prn, Compazine prn, Reglan q8h, Protonix IV. Appreciate input from gastroenterology 3. Lactic Acidosis: likely secondary to dehydration from intractable nausea/ vomiting and HD. Continue w/ IV Abx for possible sepsis. 4. Gastroparesis: cautious IVF, Protonix IV, Compazine prn, Reglan q8h. 5. DM: Sliding scale w/ Accu-Cheks. Hgb A1c pending. 6. ESRD on HD: //Sun. Follows w/ Dr. Kennedy was consulted to resume HD as scheduled. 7. HTN: Resume Norvasc, Lopressor, and Cozaar 8. DVT Prophylaxis: SCD/Teds. Dallas Taylor MD Jun 22, 2016 14:15
--- NOTE | 2016-06-22 16:16 | PD.CONS ---
[facility] Service Nephrology Consult Requested By Dr. Carranza Reason for Consult Known ESRD on HD Primary Care Physician [facility] History of Present Illness The patient is a 56 yo [place] male who is well known to our services for ESRD on HD. He has had recurrent issues regarding abdominal pain, nausea, and vomiting for the past several months. He has been evaluated several times here, but often signs out AMA before full w/u can be completed. He has been advised on multiple occasions the need for GI f/u as outpatient, but he has not followed thru as he says [facility]. Nausea and vomiting has improved today. Seen during HD which he receives TTS. Has not missed any dialysis sessions ( Eugenie Britton) Review of Systems Gastrointestinal: COMPLAINS OF: Abdominal pain, Nausea, Vomiting (Eugenie Britton) Past Family Social History Allergies: Coded Allergies: No Known Allergies (Unverified , 06/22/16) Past Medical History End-stage renal disease Congestive heart failure Hypertension Secondary hyperparathyroidism renal disease Diabetes mellitus Coronary disease status post PTCA Recent toe gangrene status post amputation. History of perforated diverticulitis with colostomy. Dietary vitamin D deficiency. Peripheral vascular disease Recurrent nausea, vomiting Past Surgical History PTCA AVF formation that has failed. PermCath placement Toe amputation Colectomy with diverting colostomy Reported Medications Reported Meds & Active Scripts Active Zofran Odt (Ondansetron Odt) 8 Mg Tab 8 Mg SL Q8H PRN Phenergan Supp (Promethazine HCl) 50 Mg Supp 50 Mg RECTAL Q6H PRN Phenergan (Promethazine HCl) 25 Mg Tab 25 Mg PO Q6H PRN Cozaar (Losartan Potassium) 50 Mg Tab 50 Mg PO DAILY Pantoprazole (Pantoprazole Sodium) 40 Mg Tab 40 Mg PO DAILY Reported Tramadol (Tramadol HCl) 50 Mg Tab 100 Mg PO BID PRN Norvasc (Amlodipine Besylate) 10 Mg Tab 10 Mg PO DAILY Aspir-81 (Aspirin) 81 Mg Tabdr 81 Mg PO DAILY Buspirone (Buspirone HCl) 10 Mg Tab 10 Mg PO BID Citalopram (Citalopram Hydrobromide) 20 Mg Tab 20 Mg PO DAILY Metoprolol Tartrate 50 Mg Tab 50 Mg PO BID Active Ordered Medications Current Medications Medications (Trade) Dose Ordered Sig/Hallie Route Start Time Stop Time Status Last Admin (Compazine Inj) 10 mg Q6H PRN IVS 06/22/16 03:30 06/22/16 03:33 (Protonix Inj) 40 mg Q12H IV PUSH 06/22/16 21:00 (Reglan Inj) 5 mg Q8HR IV PUSH 06/22/16 06:00 06/22/16 06:05 (NS Flush) 2 ml UNSCH PRN FLUSH 06/22/16 03:30 (NS Flush) 2 ml BID FLUSH 06/22/16 09:00 (Zofran Inj) 4 mg Q6H PRN IVP 06/22/16 03:30 06/22/16 09:26 (Dulcolax Supp) 10 mg DAILY PRN FL 06/22/16 03:30 (Tylenol) 650 mg Q6H PRN PO 06/22/16 03:30 (Morphine Inj) 1 mg Q3H PRN IV 06/22/16 03:30 Morphine Sulfate 2 mg 2 mg Q3H PRN IV 06/22/16 03:30 Ciprofloxacin/ Dextrose 200 ml @ 200 mls/hr Q36H IV 06/22/16 03:30 06/22/16 04:54 (Flagyl 500 Mg Inj) 100 ml @ 100 mls/hr Q8H IV 06/22/16 04:30 06/22/16 06:05 (D50w (Vial) Inj) 25 ml UNSCH PRN IV PUSH 06/22/16 04:30 Glucagon 1 mg 1 mg UNSCH PRN OTHER 06/22/16 04:30 (NS 1000 ml Inj) 1,000 ml @ 0 mls/hr Q0M PRN IV 06/22/16 13:11 06/22/16 13:59 Heparin Sodium (Porcine) 8000 units 8,000 units UNSCH PRN IVF 06/22/16 13:15 Sodium Chloride 1,000 ml @ 200 mls/hr Q5H PRN IV 06/22/16 13:11 (NS 1000 ml Inj) 1,000 ml @ 0 mls/hr Q0M PRN IV 06/22/16 13:11 (Mannitol Inj) 12.5 gm UNSCH PRN IV 06/22/16 13:15 (Albumin 25% Inj) 25 gm UNSCH PRN IV 06/22/16 13:15 (NS Flush) 5 ml UNSCH PRN IVF 06/22/16 13:15 (Heparin Inj) UNSCH PRN .XX 06/22/16 13:15 06/22/16 13:58 (Gentamicin (Dialysis) Inj) 20 mg UNSCH PRN IV 06/22/16 13:15 06/22/16 13:59 (Zofran Inj) 4 mg UNSCH PRN IV 06/22/16 13:15 (Tylenol) 650 mg UNSCH PRN PO 06/22/16 13:15 (Benadryl) 25 mg UNSCH PRN PO 06/22/16 13:15 (Nitrostat Sl) 0.4 mg UNSCH PRN SL 06/22/16 13:15 (Catapres) 0.1 mg UNSCH PRN PO 06/22/16 13:15 06/22/16 15:21 (Gelfoam 12 Mm/7 Mm Top) 1 foam UNSCH PRN TOP 06/22/16 13:15 (Norvasc) 10 mg DAILY PO 06/23/16 09:00 (Buspar) 10 mg BID PO 06/22/16 21:00 (CeleXA) 20 mg DAILY PO 06/23/16 09:00 (Cozaar) 50 mg DAILY PO 06/23/16 09:00 (Lopressor) 50 mg BID PO 06/22/16 21:00 Family History NC Social History Tobacco use Marijuana use Denies any EtOH abuse (Eugenie Britton) Physical Exam Vital Signs Vital Signs Date Time Temp Pulse Resp B/P Pulse Ox O2 Delivery O2 Flow Rate FiO2 06/22/16 12:24 108 18 157/87 97 Room Air 06/22/16 09:13 106 18 140/76 100 Room Air 06/22/16 04:00 105 20 146/76 97 Room Air 06/22/16 03:00 129 20 176/96 100 Room Air 06/22/16 02:00 128 20 178/94 100 Room Air 06/22/16 00:26 99.3 108 24 180/81 100 Physical Exam GENERAL: Seen during HD. Finishing tx which he tolerated well with UF of 1L SKIN: Warm and dry. HEAD: Atraumatic. Normocephalic. EYES: Pupils equal and round. No scleral icterus. No injection or drainage. ENT: No nasal bleeding or discharge. Mucous membranes pink and moist. NECK: Trachea midline. No JVD. CARDIOVASCULAR: Regular rate and rhythm. RESPIRATORY: No accessory muscle use. Clear to auscultation. Breath sounds equal bilaterally. GASTROINTESTINAL: Abdomen soft, non-tender, nondistended. Hepatic and splenic margins not palpable. MUSCULOSKELETAL: Extremities without clubbing, cyanosis, or edema. No obvious deformities. NEUROLOGICAL: Awake and alert. No obvious cranial nerve deficits. Normal speech. PSYCHIATRIC: Appropriate mood and affect; insight and judgment normal. Laboratory Laboratory Tests Test 06/22/16 06/22/16 06/22/16 00:52 01:35 04:10 White Blood Count 13.8 Red Blood Count 4.12 Hemoglobin 11.9 Hematocrit 35.7 Mean Corpuscular Volume 86.8 Mean Corpuscular Hemoglobin 29.0 Mean Corpuscular Hemoglobin 33.4 Concent Red Cell Distribution Width 13.8 Platelet Count 276 Mean Platelet Volume 9.7 Neutrophils (%) (Auto) 91.6 Lymphocytes (%) (Auto) 3.8 Monocytes (%) (Auto) 4.5 Eosinophils (%) (Auto) 0.0 Basophils (%) (Auto) 0.1 Neutrophils # (Auto) 12.6 Lymphocytes # (Auto) 0.5 Monocytes # (Auto) 0.6 Eosinophils # (Auto) 0.0 Basophils # (Auto) 0.0 CBC Comment DIFF FINAL Differential Comment Sodium Level 140 Potassium Level 4.4 Chloride Level 105 Carbon Dioxide Level 22.2 Anion Gap 13 Blood Urea Nitrogen 25 Creatinine 4.87 Estimat Glomerular Filtration 12 Rate Random Glucose 172 Calcium Level 8.3 Troponin I 0.02 Lactic Acid Level 3.4 1.2 Date/Time Procedure Status Source Growth 06/22/16 01:35 Aerobic Blood Culture Received Blood Peripheral Pending 06/22/16 01:35 Anaerobic Blood Culture Received Blood Peripheral Pending (Eugenie Britton) Result Diagram: 06/22/16 0052 06/22/16 0052 Imaging Last Impressions Chest X-Ray 06/22/16 0000 Signed Impressions: Service Date/Time: June 01:06 - CONCLUSION: 1. Cardiomegaly. No acute pulmonary disease. James Pinto MD Abdomen/Pelvis CT 06/22/16 0000 Signed Impressions: Service Date/Time: June 01:43 - CONCLUSION: 1. No evidence of acute abdominal or pelvic process. No masses are identified. 2. Left hemicolectomy with ostomy and large amount of fecal material within the remaining colon 3. Left inguinal hernia without incarceration James Pinto MD (Eugenie Britton) Assessment and Plan Problem List: (1) ESRD (end stage renal disease) on dialysis Plan: Seen during HD today. Continue on TTS schedule as before. Medications should be adjusted for the patient's ESRD. Avoid gadolinium. (2) Nausea & vomiting Plan: Mgmt as per GI. Advised the patient of importance of staying until he has been fully evaluated by GI as he has a tendency to sign out AMA. He has not been following with GI as outpatient and has had multiple admissions here for intractable nausea & vomiting. (3) HTN (hypertension) Plan: BP not well controlled. Will change Amlodipine to Procardia and increase Losartan to 100mg QD. (4) DM (diabetes mellitus) Plan: Mgmt as per primary (Eugenie Britton) Assessment and Plan The exam, history, and the medical decision-making described in the above note were completed with the assistance of the PA-C. I reviewed and agree with the findings presented. (David Kennedy MD) Problem Qualifiers (1) DM (diabetes mellitus): Eugenie Britton Jun 22, 2016 16:16 David Kennedy MD Jul 17, 2016 10:18
[2016-06-22] MEDS ORDERED: METOPROLOL TARTRATE 50 MG TAB PO SCH (21:00)
[2016-06-22] MEDS ORDERED: PANTOPRAZOLE SODIUM 40 MG VIAL IV PUSH SCH (21:00)
[2016-06-22] MEDS ORDERED: busPIRone HCL 10 MG TAB PO SCH (21:00)
[2016-06-23] MEDS ORDERED: CITALOPRAM HYDROBROMIDE 20 MG TAB PO SCH (09:00)
[2016-06-23] MEDS ORDERED: NIFEdipine 60 MG SUSTAINED RELEASE TAB PO SCH (09:00)
[2016-06-23] MEDS ORDERED: LOSARTAN 50 MG TAB PO SCH ×2 (09:00)
== END 2016-06-22 18:20 | disposition left against medical advice (07) | DRG 871 ==
LOC: NEPC 00:16 → NEDA 03:06 → NEDH 06:50 → NEDA 11:47
PROVIDERS: ADMIT Hospitalist; ATTEND Hospitalist
PROC: 5A1D00Z (ICD-10-PCS; principal; 2016-06-22)
DX: A41.9 Sepsis, unspecified organism (principal); N18.6 End stage renal disease; E87.2 Acidosis; E11.22 Type 2 diabetes mellitus with diabetic chronic kidney disease; N25.81 Secondary hyperparathyroidism of renal origin; K31.84 Gastroparesis; I12.0 Hypertensive chronic kidney disease with stage 5 chronic kidney disease or end stage renal disease; I50.9 Heart failure, unspecified; E86.0 Dehydration; Z99.2 Dependence on renal dialysis; K40.90 Unilateral inguinal hernia, without obstruction or gangrene, not specified as recurrent; Z93.3 Colostomy status; F17.210 Nicotine dependence, cigarettes, uncomplicated; I25.2 Old myocardial infarction; Z87.442 Personal history of urinary calculi; K21.9 Gastro-esophageal reflux disease without esophagitis; I25.10 Atherosclerotic heart disease of native coronary artery without angina pectoris; Z95.5 Presence of coronary angioplasty implant and graft; G62.9 Polyneuropathy, unspecified; E78.00 Pure hypercholesterolemia, unspecified; F32.9 Major depressive disorder, single episode, unspecified; F41.9 Anxiety disorder, unspecified; K44.9 Diaphragmatic hernia without obstruction or gangrene; I34.0 Nonrheumatic mitral (valve) insufficiency; Z80.6 Family history of leukemia; Z82.3 Family history of stroke; K29.70 Gastritis, unspecified, without bleeding; D63.8 Anemia in other chronic diseases classified elsewhere; Z90.49 Acquired absence of other specified parts of digestive tract; Z87.19 Personal history of other diseases of the digestive system; E55.9 Vitamin D deficiency, unspecified; F12.90 Cannabis use, unspecified, uncomplicated
CPT/HCPCS: 71010; 74176; 80048; 83605; 84484; 85025; 86403; 87040; 87077; 87186; 87205; 90935; 93005; 96374; 96375; C9113; J0744; J0780; J1580; J1644; J2270; J2405; J2543; J2765; J3370; J7030; J7040; J7050

== ENCOUNTER 2016-07-24 16:28 | Observation (INO) | payer OTHER, MEDICARE ==
[~2016-07-24] VITALS: Ht 170.2 cm; Wt 65.2 kg
[2016-07-24 16:32] VITALS: BP 221/98; PULSE 90; RESP 20; TEMP 98.6; O2SAT 100
[2016-07-24] MEDS ORDERED: SODIUM CHLOR 0.9% 1000 ML INJ 1,000 ML IV ONE (16:33)
--- NOTE | 2016-07-24 16:38 | PD ---
HPI Chief Complaint: GI Complaint Time Seen by Provider: 16:37 Travel History International Travel<30 days: No Contact w/Intl Traveler<30days: No Traveled to known affect area: No History of Present Illness HPI 56-year-old male with a history of ESRD on hemodialysis /, hypertension, diabetes, gastroparesis presents to the emergency department for evaluation of nausea, vomiting and abdominal pain for 3 days. Patient states today the vomit became bloody, the last 2 days it has been without blood with normal coloration. Complains of periumbilical abdominal pain. He has been producing stool from his colostomy bag that he states has been brown, does not think there is been any blood in the stool. Patient last received dialysis on . Denies fever, chills, chest pain, shortness of breath, difficulty breathing, lightheadedness, dizziness. PCP is at the [facility]. Paleontological Helper is Dr. Kennedy. No other complaints. PFSH Past Medical History Hx Anticoagulant Therapy: No Blood Disorders: No Anxiety: Yes Depression: Yes Heart Rhythm Problems: No Cancer: No Cardiac Catheterization: Yes Cardiovascular Problems: Yes (IN 10 YEARS AGO) High Cholesterol: Yes Chest Pain: Yes Congestive Heart Failure: Yes COPD: No Cerebrovascular Accident: No Diabetes: Yes Dialysis: Yes (HAS FISTULA IN L ARM,FOR FUTURE) Diminished Hearing: No Endocrine: No Gastrointestinal Disorders: Yes GERD: Yes Genitourinary: No Headaches: No Hypertension: Yes Immune Disorder: No Inguinal Hernia: Yes Implanted Vascular Access Dvce: Yes (L FOREARM) Kidney Stones: Yes Musculoskeletal: No Neurologic: Yes (neuropathy) Psychiatric: Yes Reproductive: No Respiratory: Yes ( PNA) Immunizations Current: Yes Migraines: No Myocardial Infarction: Yes (2003) Renal Failure: Yes (CKD, dialysis , , SUN) Seizures: No Thyroid Disease: No Past Surgical History Abdominal Surgery: Yes (PART OF COLON AND LARGE INTESTINE REMOVED, COLOSTOMY PLACEMENT) Body Medical Devices: Cardiac Stent Cardiac Surgery: Yes (cardiac cath with stent, ) Coronary Stent: Yes Ear Surgery: No Endocrine Surgery: No Eye Surgery: No Genitourinary Surgery: No Gynecologic Surgery: No Neurologic Surgery: No Oral Surgery: No Thoracic Surgery: No Other Surgery: Yes (LFA fistula, Teeth pulled, colostomy, right leg fem pop) Social History Alcohol Use: No Tobacco Use: Yes (1/2 PPD) Substance Use: No Allergies-Medications (Allergen,Severity, Reaction): Coded Allergies: No Known Allergies (Unverified , 06/22/16) Reported Meds & Prescriptions Reported Meds & Active Scripts Active Zofran Odt (Ondansetron Odt) 8 Mg Tab 8 Mg SL Q8H PRN Pantoprazole (Pantoprazole Sodium) 40 Mg Tab 40 Mg PO DAILY Reported Bumex (Bumetanide) 2 Mg Tab 2 Mg PO DAILY Enalapril (Enalapril Maleate) Unknown Strength Tab Unknown Dose PO DAILY Tramadol (Tramadol HCl) 50 Mg Tab 100 Mg PO BID PRN Norvasc (Amlodipine Besylate) 10 Mg Tab 10 Mg PO DAILY Aspir-81 (Aspirin) 81 Mg Tabdr 81 Mg PO DAILY Buspirone (Buspirone HCl) 10 Mg Tab 10 Mg PO BID Citalopram (Citalopram Hydrobromide) 20 Mg Tab 20 Mg PO DAILY Metoprolol Tartrate 50 Mg Tab 50 Mg PO BID Review of Systems Except as stated in HPI: all other systems reviewed are Neg Physical Exam Narrative GENERAL: Well-nourished and well-developed male patient in no acute distress. SKIN: Warm and dry. HEAD: Normocephalic and atraumatic. EYES: No injection, drainage, or hyphema noted. PERRLA. EOMI. ENT: No nasal drainage noted. Oropharynx is clear. NECK: Supple and the trachea is midline. CARDIOVASCULAR: Regular rate and rhythm. RESPIRATORY: Breath sounds are equal bilaterally with no accessory muscle use, wheezing, rhonchi, or crackles. GASTROINTESTINAL: Periumbilical tenderness to palpation. Ostomy bag in place with brown stool. Abdomen is soft, non-tender, and nondistended. MUSCULOSKELETAL: No obvious deformities, swelling, cyanosis, or ecchymosis is present throughout the upper and lower extremities. Patient has full range of motion without any signs of neurovascular compromise. NEUROLOGICAL: Awake, alert, and oriented. Normal speech and gait. Cranial nerves are grossly intact. Data Data Last Documented VS Vital Signs Date Time Temp Pulse Resp B/P Pulse Ox O2 Delivery O2 Flow Rate FiO2 07/24/16 17:21 97 Room Air 07/24/16 16:32 98.6 90 20 221/98 Orders Electrocardiogram (07/24/16 16:33) Complete Blood Count With Diff (07/24/16 16:33) Comprehensive Metabolic Panel (07/24/16 16:33) Prothrombin Time / Inr (Pt) (07/24/16 16:33) Act Partial Throm Time (Ptt) (07/24/16 16:33) Lactic Acid Sepsis Protocol (07/24/16 16:33) Urinalysis - C+S If Indicated (07/24/16 16:33) Blood Culture (07/24/16 16:33) Chest, Single Ap (07/24/16 16:33) Blood Glucose (07/24/16 16:33) Ecg Monitoring (07/24/16 16:33) Iv Access Insert/Monitor (07/24/16 16:33) Oximetry (07/24/16 16:33) Sodium Chlor 0.9% 1000 Ml Inj (Ns 1000 M (07/24/16 16:33) Abdomen, Flat & Upright (07/24/16 ) Ct Abd/Pel W/O Iv Contrast (07/24/16 16:36) Type And Screen (07/24/16 16:36) Pantoprazole Inj (Protonix Inj) (07/24/16 16:45) Pantoprazole Inj (Protonix Inj) (07/24/16 16:45) Vancomycin Inj (Vancomycin Inj) (07/24/16 17:35) Piperacil-Tazo 4.5 Gm Premix (Zosyn 4.5 (07/24/16 17:35) Morphine Inj (Morphine Inj) (07/24/16 18:30) Admit Order (Ed Use Only) (07/24/16 18:36) Labs Laboratory Tests Test 07/24/16 07/24/16 16:50 17:09 White Blood Count 19.1 TH/MM3 Red Blood Count 4.29 MIL/MM3 Hemoglobin 12.5 GM/DL Hematocrit 35.9 % Mean Corpuscular Volume 83.7 FL Mean Corpuscular Hemoglobin 29.2 PG Mean Corpuscular Hemoglobin 34.9 % Concent Red Cell Distribution Width 13.6 % Platelet Count 278 TH/MM3 Mean Platelet Volume 9.6 FL Neutrophils (%) (Auto) 92.0 % Lymphocytes (%) (Auto) 2.8 % Monocytes (%) (Auto) 5.1 % Eosinophils (%) (Auto) 0.0 % Basophils (%) (Auto) 0.1 % Neutrophils # (Auto) 17.6 TH/MM3 Lymphocytes # (Auto) 0.5 TH/MM3 Monocytes # (Auto) 1.0 TH/MM3 Eosinophils # (Auto) 0.0 TH/MM3 Basophils # (Auto) 0.0 TH/MM3 CBC Comment DIFF FINAL Differential Comment Prothrombin Time 11.6 SEC Prothromb Time International 1.0 RATIO Ratio Activated Partial 24.5 SEC Thromboplast Time Sodium Level 137 MEQ/L Potassium Level 4.4 MEQ/L Chloride Level 96 MEQ/L Carbon Dioxide Level 24.4 MEQ/L Anion Gap 17 MEQ/L Blood Urea Nitrogen 66 MG/DL Creatinine 8.46 MG/DL Estimat Glomerular Filtration 7 ML/MIN Rate Random Glucose 228 MG/DL Calcium Level 9.7 MG/DL Total Bilirubin 0.3 MG/DL Aspartate Amino Transf 11 U/L (AST/SGOT) Alanine Aminotransferase 12 U/L (ALT/SGPT) Alkaline Phosphatase 82 U/L Total Protein 8.1 GM/DL Albumin 3.8 GM/DL Blood Type O POSITIVE Antibody Screen NEGATIVE Lactic Acid Level 3.6 mmol/L [facility] Medical Decision Making Medical Screen Exam Complete: Yes Emergency Medical Condition: Yes Differential Diagnosis GI bleed versus colitis versus gastroparesis versus electrolyte abnormality versus dehydration Narrative Course 56-year-old male with a history of end-stage renal disease on dialysis is brought to the emergency room by EMS for evaluation of nausea, vomiting, abdominal pain for 3 days. Patient is afebrile, vital signs are stable. He is hypertensive however has not taken any of his medications in 3 days. He did have some hematemesis today, positive gastric heme. IV access is obtained, labs were drawn and sent. CBC shows significant leukocytosis with a white blood cell count 19.1. Mild anemia with hemoglobin of 12.5, hematocrit 35.9. CMP shows renal failure with a creatinine of 8.46, BUN 66, GFR 7. Consistent with ESRD. He missed dialysis on Sunday due to vomiting. Lactic acid is elevated at 3.6. Coags are unremarkable. Chest x-ray is negative for any acute abnormalities. CT of the abdomen and pelvis without contrast shows bilateral nonobstructing renal stones, otherwise unremarkable. Patient has leukocytosis, tachycardia and positive lactic acid. He meets sepsis criteria however we do not have a source of infection. He has remained stable here in the ED. Patient will be admitted to medicine service under inpatient side as based on my clinical assessment he will require multiple days in the hospital. I discussed the case with my attending physician Dr. Sheikh who is aware of the patients history, physical examination findings, and treatment plan. [facility] Point of Care Internal Pos. & Neg. Controls: Passed Gastric Specimen Occult Blood: Positive Sepsis Criteria SIRS Criteria (2 or more): Heart rate over 90, WBC > 14493, < 4000 or > 10% bands Severe Sepsis (+one): Lactate >2 Physician Communication Physician Communication My attending physician Dr. Sheikh spoke with Dr. Reid [facility] who agrees to admit the patient to her service. Diagnosis Primary Impression: SIRS (systemic inflammatory response syndrome) Additional Impressions: Intractable nausea and vomiting Qualified Code: R11.2 - Intractable vomiting with nausea, unspecified vomiting type ESRD on hemodialysis Admitting Information Admitting Physician Requests: Admit Liz Livingston Jul 24, 2016 16:37
[2016-07-24] MEDS ORDERED: PANTOPRAZOLE INJ 80 MG in SODIUM CHLORIDE 0.9% INJ 35 ML IV ONE (16:45)
[2016-07-24 17:17] LABS: AUTOMATED NEUTROPHIL # 17.6 TH/MM3 (1.8-7.7); BASOPHIL % 0.1 % (0.0-2.0); HEMATOCRIT 35.9 % (39.0-51.0); HEMO FLAGS DIFF FINAL; LYMPH % 2.8 % (9.0-44.0); LYMPHOCYTE # 0.5 TH/MM3 (1.0-4.8); MEAN CELL VOLUME 83.7 FL (80.0-100.0); MEAN CORPUSCULAR HEMOGLOBIN 29.2 PG (27.0-34.0); MEAN CORPUSCULAR HGB CONC 34.9 % (32.0-36.0); MONO % 5.1 % (0.0-8.0); PLATELET COUNT 278 TH/MM3 (150-450); RED BLOOD COUNT 4.29 MIL/MM3 (4.50-5.90); RED CELL DISTRIBUTION WIDTH 13.6 % (11.6-17.2); WHITE BLOOD COUNT 19.1 TH/MM3 (4.0-11.0)
[2016-07-24] MEDS: PANTOPRAZOLE INJ 80 MG in SODIUM CHLORIDE 0.9% INJ 100 ML IV SCH (17:17)
[2016-07-24 17:21] VITALS: O2SAT 97
[2016-07-24] MEDS ORDERED: PIPERACIL-TAZO 4.5 GM PREMIX 100 ML IV STA (17:35)
[2016-07-24] MEDS ORDERED: VANCOMYCIN INJ 1,000 MG in SODIUM CHLOR 0.9% 250 ML INJ 250 ML IV STA (17:35)
[2016-07-24 17:40] LABS: ANION GAP 17 MEQ/L (5-15); APTT (PATIENT) 24.5 SEC (24.3-30.1); AST (GOT) 11 U/L (15-37); BICARBONATE 24.4 MEQ/L (21.0-32.0); BLOOD UREA NITROGEN 66 MG/DL (7-18); CHLORIDE 96 MEQ/L (98-107); GLOMERULAR FILTRATION RATE 7 ML/MIN (>89); POTASSIUM 4.4 MEQ/L (3.5-5.1); PROTHROMBIN TIME - PATIENT 11.6 SEC (9.8-11.6); SODIUM (NA) 137 MEQ/L (136-145)
[2016-07-24 17:44] LABS: ALKALINE PHOSPHATASE 82 U/L (45-117); ALT (GPT) 12 U/L (12-78); TOTAL BILIRUBIN ADULT 0.3 MG/DL (0.2-1.0)
--- NOTE | 2016-07-24 18:09 | RADRPT ---
EXAM DATE/TIME: 07/24/2016 17:43 [facility] COMPARISON: CHEST SINGLE AP, June 22, 2016, 1:06. INDICATIONS : Vomiting. MEDICAL HISTORY : Congestive heart failure. Hypercholesterolemia. Myocardial infarction. SURGICAL HISTORY : Coronary artery stent. Left arm AV fistula. Right big toe amputation. ENCOUNTER: Initial ACUITY: 2 days PAIN SCORE: 5/10 LOCATION: Bilateral chest FINDINGS: A single view of the chest demonstrates the lungs to be symmetrically aerated without evidence of mas s, infiltrate or effusion. The cardiomediastinal contours are unremarkable. Osseous structures are intact. Right subclavian, large bore dialysis type catheter with tip projecting over the central veno us system. CONCLUSION: No acute cardiopulmonary process. Randy Hung MD on July 24, 2016 at 18:07 Board Certified Radiologist. This report was verified electronically.
--- NOTE | 2016-07-24 18:12 | RADRPT ---
EXAM DATE/TIME: 07/24/2016 17:45 [facility] COMPARISON: ABDOMEN FLAT & UPRIGHT, December 31, 2015, 1:10. INDICATIONS : Abdominal pain and vomiting. MEDICAL HISTORY : Cardiovascular disease. Hypertension. Diabetes mellitus type 2.GERD SURGICAL HISTORY : Colostomy. Colon resection. ENCOUNTER: Initial ACUITY: 2 days PAIN SCORE: 5/10 LOCATION: Bilateral abdomen. FINDINGS: Supine and upright views of the abdomen were performed. The abdominal bowel gas pattern is normal. No air fluid levels are seen. No definite calcifications overlying the kidneys. There is a colostomy on the right side. There is a stable nonspecific calcifications in the abdomen. The bony structures are stable. The lung bases are grossly clear. Compared to the prior exam, there have been no new or s ignificant changes. No evidence of free intraperitoneal gas. The osseous structures are stable CONCLUSION: Benign stable 2 positional abdomen. Joselito Tong MD on July 24, 2016 at 18:09 Board Certified Radiologist. This report was verified electronically.
[2016-07-24] MEDS ORDERED: ENAL5TAB PO (18:19)
[2016-07-24] MEDS ORDERED: BUME1TAB28 PO (18:20)
--- NOTE | 2016-07-24 18:20 | RADRPT ---
EXAM DATE/TIME: 07/24/2016 18:03 [facility] COMPARISON: CT ABDOMEN & PELVIS W/O CONTRAST, June 22, 2016, 1:43. INDICATIONS : Abdomen pain. ORAL CONTRAST: No oral contrast ingested. RADIATION DOSE: 4.62 CTDIvol (mGy) MEDICAL HISTORY : Cardiovascular disease. Renal failure SURGICAL HISTORY : None. ENCOUNTER: Initial ACUITY: 1 day PAIN SCALE: 5/10 LOCATION: Bilateral abdomen TECHNIQUE: Volumetric scanning of the abdomen and pelvis was performed. Using automated exposure control and ad justment of the mA and/or kV according to patient size, radiation dose was kept as low as reasonably achievable to obtain optimal diagnostic quality images. The lack of IV contrast limits the diagnosis for certain organ pathology. FINDINGS: LOWER LUNGS: The visualized lower lungs are clear. LIVER: Homogeneous density without lesion. There is no dilation of the biliary tree. No calcified gallston es. SPLEEN: Normal size without lesion. PANCREAS: Within normal limits. KIDNEYS: There is no evidence of hydronephrosis. There are vascular calcifications bilaterally. There is a sta ble 6 mm nonobstructing stone in the right renal pelvis. There is a stable nonobstructing 7 mm stone in the left renal pelvis. The ureters are nondilated. ADRENAL GLANDS: Within normal limits. VASCULAR: There is no aortic aneurysm. Atherosclerotic changes. BOWEL/MESENTERY: The stomach, small bowel, and colon demonstrate no acute abnormality. There is no free intraperitone al air or fluid. The no inflammatory changes. There is a colostomy on the right side. No evidence of obstruction. ABDOMINAL WALL: Within normal limits. RETROPERITONEUM: There is no lymphadenopathy. BLADDER: No wall thickening or mass. REPRODUCTIVE: The prostate gland measures 5.2 cm. INGUINAL: Small left renal hernia containing some fluid. No significant change compared to the prior study. Pos tsurgical changes in the right inguinal area. MUSCULOSKELETAL: Within normal limits for patient age. Stable CONCLUSION: 1. Bilateral nonobstructing renal stones. No significant change compared to the prior exam. 2. The bowel gas pattern is within normal limits. 3. There've been no new or significant changes compared to the prior study. Joselito Tong MD on July 24, 2016 at 18:13 Board Certified Radiologist. This report was verified electronically.
[2016-07-24] MEDS ORDERED: MORPHINE SULFATE 4 MG/ML INJ IV PUSH ONE (18:30)
[2016-07-24 18:42] VITALS: BP 182/99; PULSE 99; RESP 20; O2SAT 98
[2016-07-24 19:15] LABS: LACTIC ACID GHOST NOT REPORTABLE
[2016-07-24] MEDS ORDERED: SODIUM CHLORIDE 0.9% FLUSH 5 ML FLUSH FLUSH PRN (20:00)
[2016-07-24] MEDS ORDERED: NALOXONE HCL 0.4 MG/ML AMP IV PRN (20:00)
[2016-07-24] MEDS: SODIUM CHLORIDE 0.9% FLUSH 5 ML FLUSH FLUSH SCH (20:48)
[2016-07-24 21:41] LABS: HEMATOCRIT 31.7 % (39.0-51.0); REVIEW FLAG FINAL
[2016-07-24 22:20] VITALS: BP 162/87; PULSE 99; RESP 16; O2SAT 100
[2016-07-24 22:32] VITALS: BP 158/87; PULSE 87; RESP 18; TEMP 98.8; O2SAT 97
[2016-07-24] MEDS: ONDANSETRON HCL 4 MG/2 ML VIAL IVP PRN (22:40)
--- NOTE | 2016-07-24 23:59 | HHI.HP ---
HPI Service [facility] Primary Care Physician [facility] Admission Diagnosis SIRS, Intractable Nausea and Vomiting Diagnoses: (1) GI bleed (2) Anemia (3) Nausea & vomiting (4) ESRD on hemodialysis (5) Leukocytosis Chief Complaint: Nausea and vomiting Travel History International Travel<30 Days: No Contact w/Intl Traveler <30 Da: No Traveled to Known Affected Are: No History of Present Illness Mr. Cintron is a 56 year-old male with a history of end-stage renal disease on hemodialysis, hypertension, diabetes mellitus, and gastroparesis presented to the emergency room on 07/24/2016 for evaluation of abdominal pain, nausea, and vomiting since 07/22/2016. The patient is seen in the CDU. He states that he has been vomiting "constantly " since Sunday07/22/16. He says he has been unable to eat for the past "couple of days"; symptoms are severe. He reports associated epigastric pain that he states is "stress pain". He denies bright red blood in emesis but does report very dark brown emesis. He has a colostomy due to a previous bowel obstruction with perforation and reports he has been having liquid stools without black or red colored output from the colostomy. He denies any recent and states her steroids. He denies any history of gastric ulcers. The patient denies any recent fever, hematuria, dysuria, shortness of breath, or syncope. He reports chronic chest pain and states that his PCP is aware and he has been evaluated for this. He denies any history of liver disease, hepatitis, COPD, CVA, seizures, thyroid problems, or cancers. . Review of Systems Except as stated in HPI: all other systems reviewed are Neg Past Family Social History Past Medical History hypertension [place] 2004 CAD s/p stent x 1 CHF diabetes mellitus gangrene with perforated colon . Past Surgical History Colostomy Right big toe amputated Right leg fem-pop bypass Stent - cardiac x 1 . Reported Medications Reported Meds & Active Scripts Active Zofran Odt (Ondansetron Odt) 8 Mg Tab 8 Mg SL Q8H PRN Pantoprazole (Pantoprazole Sodium) 40 Mg Tab 40 Mg PO DAILY Reported Bumex (Bumetanide) 2 Mg Tab 2 Mg PO DAILY Enalapril (Enalapril Maleate) Unknown Strength Tab Unknown Dose PO DAILY Tramadol (Tramadol HCl) 50 Mg Tab 100 Mg PO BID PRN Norvasc (Amlodipine Besylate) 10 Mg Tab 10 Mg PO DAILY Aspir-81 (Aspirin) 81 Mg Tabdr 81 Mg PO DAILY Buspirone (Buspirone HCl) 10 Mg Tab 10 Mg PO BID Citalopram (Citalopram Hydrobromide) 20 Mg Tab 20 Mg PO DAILY Metoprolol Tartrate 50 Mg Tab 50 Mg PO BID . Allergies: Coded Allergies: No Known Allergies (Unverified , 06/22/16) Active Ordered Medications Current Medications Sodium Chloride 1,000 ml @ 1,000 mls/hr Q1H ONCE IV Last administered on 17:16; Start 07/24/16 at 16:33; Stop 07/24/16 at 17:32; Status DC Pantoprazole Sodium 80 mg/ Sodium Chloride 35 ml @ 420 mls/hr ONCE ONCE IV Last administered on 07/24/16 17:13; Start 07/24/16 at 16:45; Stop 07/24/16 at 16:49; Status DC Pantoprazole Sodium 80 mg/ Sodium Chloride 100 ml @ 10 mls/hr Q10H IV Last administered on 07/24/16 17:17; Start 07/24/16 at 16:45 Vancomycin HCl 1000 mg/Sodium Chloride 250 ml @ 250 mls/hr ONCE STAT IV Last administered on 07/24/16 20:48; Start 07/24/16 at 17:35; Stop 07/24/16 at 18:34 ; Status DC Piperacillin Sod/ Tazobactam Sod (Zosyn 4.5 Gm Premix) 100 ml @ 200 mls/hr ONCE STAT IV Last administered on 07/24/16 18:26; Start 07/24/16 at 17:35; Stop 07/24/16 at 18:04; Status DC Morphine Sulfate (Morphine Inj) 4 mg ONCE ONCE IV PUSH Last administered on 18:42; Start 07/24/16 at 18:30; Stop 07/24/16 at 18:31; Status DC IV Flush (NS Flush) 2 ml UNSCH PRN FLUSH FLUSH AFTER USING IV ACCESS Last administered on 07/24/16 22:39; Start 07/24/16 at 20:00 IV Flush (NS Flush) 2 ml BID FLUSH Last administered on 07/24/16 20:48; Start 07/24/16 at 21:00 Ondansetron HCl (Zofran Inj) 4 mg Q6H PRN IVP NAUSEA OR VOMITING Last administered on 07/24/16 22:40; Start 07/24/16 at 20:00 Naloxone HCl (Narcan Inj) 0.4 mg UNSCH PRN IV SEE LABEL COMMENTS; Start at 20:00 Morphine Sulfate (Morphine Inj) 2 mg Q6HR PRN IV PUSH pain >5; Start 07/24/16 at 23:45 . Family History Mother with leukemia Brother with brain aneurysm Father from injuries sustained in a motor vehicle collision . Social History Tobacco: 1/2 PPD Alcohol: denies Illicit Drugs: denies . Physical Exam Vital Signs Vital Signs Date Time Temp Pulse Resp B/P Pulse Ox O2 Delivery O2 Flow Rate FiO2 07/24/16 22:32 98.8 87 18 158/87 97 07/24/16 22:20 99 16 162/87 100 Room Air 07/24/16 18:42 99 20 182/99 98 Room Air 07/24/16 17:21 97 Room Air 07/24/16 16:32 98.6 90 20 221/98 100 Physical Exam GENERAL: This is a chronically ill-appearing patient, in no apparent distress. SKIN: No rashes, ecchymoses or lesions. Cool and dry. HEAD: Atraumatic. Normocephalic. EYES: No scleral icterus. No injection or drainage. ENT: Nose without bleeding, purulent drainage. NECK: Trachea midline. No JVD or lymphadenopathy. CARDIOVASCULAR: Regular rate and rhythm without murmurs, gallops, or rubs. RESPIRATORY: Clear to auscultation. Breath sounds equal bilaterally. No wheezes , rales, or rhonchi. GASTROINTESTINAL: Abdomen soft, non-tender, nondistended. No guarding. Brown liquid stool in colostomy bag. MUSCULOSKELETAL: Extremities without clubbing or cyanosis. No calf tenderness. Right lower extremity slightly larger than left - chronic per patient NEUROLOGICAL: Awake and alert. Motor and sensory grossly within normal limits. Normal speech. . Laboratory Laboratory Tests Test 07/24/16 07/24/16 07/24/16 07/24/16 16:50 17:09 19:31 20:45 White Blood Count 19.1 Red Blood Count 4.29 Hemoglobin 12.5 10.7 Hematocrit 35.9 31.7 Mean Corpuscular Volume 83.7 Mean Corpuscular Hemoglobin 29.2 Mean Corpuscular Hemoglobin 34.9 Concent Red Cell Distribution Width 13.6 Platelet Count 278 Mean Platelet Volume 9.6 Neutrophils (%) (Auto) 92.0 Lymphocytes (%) (Auto) 2.8 Monocytes (%) (Auto) 5.1 Eosinophils (%) (Auto) 0.0 Basophils (%) (Auto) 0.1 Neutrophils # (Auto) 17.6 Lymphocytes # (Auto) 0.5 Monocytes # (Auto) 1.0 Eosinophils # (Auto) 0.0 Basophils # (Auto) 0.0 CBC Comment DIFF FINAL Differential Comment Prothrombin Time 11.6 Prothromb Time International 1.0 Ratio Activated Partial 24.5 Thromboplast Time Sodium Level 137 Potassium Level 4.4 Chloride Level 96 Carbon Dioxide Level 24.4 Anion Gap 17 Blood Urea Nitrogen 66 Creatinine 8.46 Estimat Glomerular Filtration 7 Rate Random Glucose 228 Calcium Level 9.7 Total Bilirubin 0.3 Aspartate Amino Transf 11 (AST/SGOT) Alanine Aminotransferase 12 (ALT/SGPT) Alkaline Phosphatase 82 Total Protein 8.1 Albumin 3.8 Blood Type O POSITIVE Antibody Screen NEGATIVE Lactic Acid Level 3.6 1.9 Date/Time Procedure Status Source Growth 07/24/16 17:09 Aerobic Blood Culture Received Blood Peripheral Pending 07/24/16 17:09 Anaerobic Blood Culture Received Blood Peripheral Pending Result Diagram: 07/24/16204407/24/16 165 Imaging Last Impressions Abdomen/Pelvis CT 07/24/166 Signed Impressions: Service Date/Time: Sunday, July 24, 2016 18:03 - CONCLUSION: 1. Bilateral nonobstructing renal stones. No significant change compared to the prior exam. 2. The bowel gas pattern is within normal limits. 3. There've been no new or significant changes compared to the prior study. Joselito Tong MD Chest X-Ray 07/24/16 1633 Signed Impressions: Service Date/Time: Sunday, July 24, 2016 17:43 - CONCLUSION: No acute cardiopulmonary process. Randy Hung MD Abdomen X-Ray 07/24/16 0000 Signed Impressions: Service Date/Time: Sunday, July 24, 2016 17:45 - CONCLUSION: Benign stable 2 positional abdomen. Joselito Tong MD . Assessment and Plan Problem List: (1) GI bleed ICD Code: K92.2 Status: Acute (2) Anemia ICD Code: D64.9 Status: Acute (3) Nausea & vomiting ICD Code: R11.2 Status: Acute (4) ESRD (end stage renal disease) on dialysis ICD Code: N18.6 Status: Chronic (5) Leukocytosis ICD Code: D72.829 Status: Acute Assessment and Plan Mr. Cintron is a 56 year-old male presented to the emergency room on 07/24/2016 for evaluation of abdominal pain, nausea, and vomiting since Sunday, 2016. GI bleed - emesis Hemoccult + in ER - Protonix drip - Diet NPO - consult gastroenterology Anemia - initial H&H 12.5/35.9 - repeat H&H 10.7/31.7 - possibly related to hemodilution - follow results of serial H&H and transfuse as needed - continuous cardiac telemetry to monitor for arrhythmia Nausea and vomiting - Zofran 4 mg IV q6h as needed for nausea and vomiting End-stage renal disease on hemodialysis - Consult patient's field operations manager Dr. Kennedy - assistance appreciated - avoid nephrotoxins Leukocytosis with neutrophilia - Initial WBC 19.1; repeat 16.6 - CXR with no acute cardiopulmonary process - images personally reviewed and agree with findings - UA done; no culture indicated - blood cultures x 2; follow results - recheck CBC in a.m. and follow results-partly, believe this leukocytosis is due to hemoconcentration/ gi bleed- thus will not continue iv antibiotics at this point. pt received vanco/zosyn in er DVT prophylaxis - SCDs Written by Kleley Quiros, acting as scribe for Dr. Dyer on 07/24/16 at 2357. .All or portions of this note were transcribed by scribe [ Kelley Quiros]. I, Dr. Uday Dyer personally performed the history, physical exam, and medical decision making; and confirmed the accuracy of the information in the transcribed note. Authenticated by Dr. Uday Dyer on07/24/16 at 2353. Discussed Condition With ER physician, RN, and patient . Kelley Quiros Jul 24, 2016 23:59 Uday Dyer MD Jul 25, 2016 07:36
[2016-07-25] VITALS (8 sets, daily range): BP systolic 157–198; BP diastolic 76–96; PULSE 59–87; RESP 14–16; TEMP 97.7–98.8; O2SAT 97–100
[2016-07-25] MEDS: MORPHINE SULFATE 4 MG/ML INJ IV PUSH PRN ×4 (00:14→17:52)
[2016-07-25 00:41] LABS: BACTERIA, URINE RARE /hpf; BLOOD, URINE TRACE (NEG); COMMENT (UR) CULT NOT INDICATED; CULTURE IF INDICATED CULT NOT INDICATED; GLUCOSE,URINE TRACE mg/dL (NEG); KETONE, URINE NEG (NEG); MUCUS URINE FEW /lpf (OCC); NITRITE,URINE NEG (NEG); PH, URINE 7.5 (5.0-8.5); URINE COLOR LIGHT-YELLOW (YELLW/STRAW)
[2016-07-25 01:23] LABS: AUTOMATED NEUTROPHIL # 15.3 TH/MM3 (1.8-7.7); HEMATOCRIT 31.5 % (39.0-51.0); HEMO FLAGS DIFF FINAL; LYMPHOCYTE # 0.5 TH/MM3 (1.0-4.8); MEAN CELL VOLUME 84.5 FL (80.0-100.0); MEAN CORPUSCULAR HEMOGLOBIN 28.7 PG (27.0-34.0); MONO % 4.9 % (0.0-8.0); NEUT % 92.1 % (16.0-70.0); PLATELET COUNT 197 TH/MM3 (150-450); RED BLOOD COUNT 3.72 MIL/MM3 (4.50-5.90); RED CELL DISTRIBUTION WIDTH 13.7 % (11.6-17.2); WHITE BLOOD COUNT 16.6 TH/MM3 (4.0-11.0)
[2016-07-25] MEDS: PANTOPRAZOLE INJ 80 MG in SODIUM CHLORIDE 0.9% INJ 100 ML IV SCH ×2 (03:02→17:52)
[2016-07-25 03:29] LABS: BASOPHIL % 0.3 % (0.0-2.0); HEMATOCRIT 32.5 % (39.0-51.0); HEMO FLAGS DIFF FINAL; LYMPH % 7.4 % (9.0-44.0); LYMPHOCYTE # 1.1 TH/MM3 (1.0-4.8); MEAN CELL VOLUME 85.9 FL (80.0-100.0); MEAN CORPUSCULAR HEMOGLOBIN 28.4 PG (27.0-34.0); MEAN CORPUSCULAR HGB CONC 33.1 % (32.0-36.0); NEUT % 85.3 % (16.0-70.0); PLATELET COUNT 210 TH/MM3 (150-450); RED BLOOD COUNT 3.79 MIL/MM3 (4.50-5.90); RED CELL DISTRIBUTION WIDTH 13.7 % (11.6-17.2); WHITE BLOOD COUNT 15.3 TH/MM3 (4.0-11.0)
[2016-07-25 04:04] LABS: ALKALINE PHOSPHATASE 64 U/L (45-117); ALT (GPT) 9 U/L (12-78); ANION GAP 11 MEQ/L (5-15); AST (GOT) 8 U/L (15-37); BICARBONATE 27.2 MEQ/L (21.0-32.0); BLOOD UREA NITROGEN 65 MG/DL (7-18); CHLORIDE 105 MEQ/L (98-107); GLOMERULAR FILTRATION RATE 7 ML/MIN (>89); SODIUM (NA) 143 MEQ/L (136-145); TOTAL BILIRUBIN ADULT 0.5 MG/DL (0.2-1.0)
[2016-07-25] MEDS: ONDANSETRON HCL 4 MG/2 ML VIAL IVP PRN ×2 (06:07→17:52)
[2016-07-25 09:43] LABS: HEMATOCRIT 31.7 % (39.0-51.0); REVIEW FLAG FINAL
[2016-07-25] MEDS ORDERED: BACLOFEN 10 MG TAB PO PRN ×2 (09:45→19:00)
[2016-07-25] MEDS ORDERED: SODIUM CHLORID 0.9% 500 ML INJ 500 ML IV SCH (09:45)
--- NOTE | 2016-07-25 09:55 | HHI.PR ---
Subjective Remarks Follow-up for intractable nausea and vomiting. The patient states he is having intractable nausea and vomiting for 3 days. He hasn't had any vomiting overnight, continues to complain of nausea. He isn't having hiccups and belching. He had dark vomitus previously. He denies any abdominal pain. Reports normal output from ostomy. He feels like his blood pressure is high because he has a headache. He is due for dialysis today. Objective Vitals Vital Signs Date Time Temp Pulse Resp B/P Pulse Ox O2 Delivery O2 Flow Rate FiO2 07/25/16 07:24 98.8 86 16 171/92 98 07/25/16 04:00 97.7 83 16 158/79 99 07/25/16 00:00 98.1 83 15 157/83 100 07/24/16 22:32 98.8 87 18 158/87 97 07/24/16 22:20 99 16 162/87 100 Room Air 07/24/16 18:42 99 20 182/99 98 Room Air 07/24/16 17:21 97 Room Air 07/24/16 16:32 98.6 90 20 221/98 100 I/O 07/24/16 07/24/16 07/24/16 07/25/16 07/25/16 07/25/16 07:00 15:00 23:00 07:00 15:00 23:00 Output Total 150 ml 300 ml Balance -150 ml -300 ml Output Urine Total 300 ml Emesis 150 ml Result Diagram: 07/25/16 0314 07/25/16 0314 Imaging Last Impressions Abdomen/Pelvis CT 07/24/16 1636 Signed Impressions: Service Date/Time: Sunday, July 24, 2016 18:03 - CONCLUSION: 1. Bilateral nonobstructing renal stones. No significant change compared to the prior exam. 2. The bowel gas pattern is within normal limits. 3. There've been no new or significant changes compared to the prior study. Joselito Tong MD Chest X-Ray 07/24/16 1633 Signed Impressions: Service Date/Time: Sunday, July 24, 2016 17:43 - CONCLUSION: No acute cardiopulmonary process. Randy Hung MD Abdomen X-Ray 07/24/16 0000 Signed Impressions: Service Date/Time: Sunday, July 24, 2016 17:45 - CONCLUSION: Benign stable 2 positional abdomen. Joselito Tong MD Objective Remarks GENERAL: Well-developed well-nourished. In mild distress secondary to pain and hiccups. SKIN: Warm and dry. Dialysis catheter in place right chest wall. HEENT: Normocephalic. Pupils equal and round. Mucous membranes dry. CARDIOVASCULAR: Regular rate and rhythm. No murmur appreciated. RESPIRATORY: No accessory muscle use. Clear to auscultation. Breath sounds equal bilaterally. GASTROINTESTINAL: Abdomen soft, non-tender, nondistended. Bowel sounds x4. Ostomy in place in right abdomen. MUSCULOSKELETAL: No obvious deformities. No clubbing or cyanosis. No edema. NEUROLOGICAL: Awake and alert. No focal neurological deficits. Moves upper and lower extremities spontaneously. Normal speech. PSYCHIATRIC: Appropriate mood and affect; insight and judgment normal. A/P Problem List: (1) GI bleed ICD Code: K92.2 Status: Acute (2) Anemia ICD Code: D64.9 Status: Acute (3) Nausea & vomiting ICD Code: R11.2 Status: Acute (4) ESRD (end stage renal disease) on dialysis ICD Code: N18.6 Status: Chronic (5) Leukocytosis ICD Code: D72.829 Status: Acute Assessment and Plan Mr. Cintron is a 56 year-old male presented to the emergency room on 07/24/2016 for evaluation of abdominal pain, nausea, and vomiting since Sunday, 2016. GI bleed Emesis Hemoccult + in ER. Hemoglobin has remained stable at 10.7. Abdominal CT showed no significant change compared to prior exams. - Protonix drip - NPO - consulted gastroenterology Acute blood loss anemia on top of chronic normocytic anemia of chronic disease Initial hemoglobin 12.5, suspect element of hemoconcentration from dehydration. Previous hemoglobin 11.9 on 06/22/16. Hemoglobin did drop to 10.7 overnight, but has remained stable there. - Monitor H&H, transfuse if indicated - continuous cardiac telemetry to monitor for arrhythmia Intractable Nausea, vomiting, and hiccups - Antiemetics as needed - Baclofen for hiccups - Diet per GI - Discussed with nephrology, okay to give 500 cc fluid as patient appears clinically dry End-stage renal disease on hemodialysis - Consulted patient's food and beverage operations manager Dr. Kennedy - assistance appreciated - avoid nephrotoxins Leukocytosis with neutrophilia WBC 19.1, 16.6, 15.3, trending down. Afebrile. Tachycardia and lactic acidosis on admission (dehydration vs GIB vs SIRS) given IV vancomycin and Zosyn in the ED. UA and chest x-ray clear. - blood cultures x 2; follow results - recheck CBC in a.m. - Resume antibiotics if further signs of infection or sepsis Hypertensive urgency Patient is not tolerating his home oral BP meds for 3 days. Complaining of headache. -Resume home BP medications if tolerated -If not tolerating oral medications, IV hydralazine DVT prophylaxis - SCDs Discharge Planning Follow-up GI recommendations. Pablo Nair Jul 25, 2016 09:54
[2016-07-25] MEDS ORDERED: SODIUM CHLOR 0.9% 1000 ML INJ 1,000 ML IV PRN ×3 (09:59)
[2016-07-25] MEDS ORDERED: HEPARIN SODIUM - IV 10,000 UNITS/10 ML VIAL PRN (10:00)
[2016-07-25] MEDS ORDERED: ACETAMINOPHEN 325 MG TAB PO PRN (10:00)
[2016-07-25] MEDS ORDERED: ALBUMIN HUMAN 25% 25 GM/100 ML BAGP IV PRN (10:00)
[2016-07-25] MEDS ORDERED: MANNITOL 12.5 GM/50 ML VIAL IV PRN (10:00)
[2016-07-25] MEDS ORDERED: NITROGLYCERIN 0.4 MG SL 25 TABS/BTL SL PRN (10:00)
[2016-07-25] MEDS ORDERED: GELATIN 12 MM/7 MM FOAM TOP PRN (10:00)
[2016-07-25] MEDS ORDERED: HEPARIN SODIUM - IV 10,000 UNITS/10 ML VIAL IVF PRN (10:00)
[2016-07-25] MEDS ORDERED: GENTAMICIN SULFATE (DIALYSIS USE ONLY) 20 MG/2 ML VIAL IV PRN (10:00)
[2016-07-25] MEDS ORDERED: SODIUM CHLORIDE 0.9% FLUSH 10 ML FLUSH IV FLUSH PRN (10:00)
[2016-07-25] MEDS ORDERED: diphenhydrAMINE HCL 25 MG CAP PO PRN (10:00)
[2016-07-25] MEDS ORDERED: cloNIDine HCL 0.1 MG TAB PO PRN (10:00)
[2016-07-25] MEDS ORDERED: ONDANSETRON HCL 4 MG/2 ML VIAL IV PRN (10:00)
[2016-07-25] MEDS ORDERED: hydrALAZINE HCL 20 MG/ML VIAL IV PUSH PRN (10:15)
--- NOTE | 2016-07-25 10:17 | EKG ---
Date Performed: 07/24/2016 Time Performed: 17:21:36 PTAGE: 56 years EKG: Sinus rhythm BORDERLINE LEFT AXIS DEVIATION BORDERLINE ECG PREVIOUS TRACING : 06/22/2016 02.55 DOCTOR: Anthony Nj Interpretating Date/Time 07/25/2016 10:15:18
--- NOTE | 2016-07-25 10:22 | PD.CONS ---
HPI History of Present Illness This is a 56 year old male who came to the ER for evaluation of intractable nausea and vomiting. He has a hx of GERD, gastritis, esophagitis, ischemic colitis, and gastroparesis. He takes protonix and zofran at home. He states that he is usually able to control his gastroparesis with diet and the stomach medications, but that he started having nausea and vomiting on Sunday. He took his zofran, but was unable to keep this down. He reports that he has been having frequent nausea and vomiting consisting of dark emesis that appeared almost black in color. He also has some associated abdominal pain from that he describes as a constant epigastric burning and aching from persistent vomiting. He denies any melena or hematochezia. He has a hx of ischemic colitis last year and had a bowel resection with right sided colostomy. His stool is a liquid light brown. He reports that he has not been able to keep anything down for a few days and so he is sure he has lost a few lbs since Sunday, but otherwise has not lost any weight. He was evaluated with EGD (04/21/16)------ > duodenal bulb nodule, gastritis antrum, hiatal hernia, schatzki's ring, dilatation Savary 14, retroflexed views revealed a hiatal hernia. Pathology with peptic duodenitis, gastric antral mucosal biopsy with mild chronic nonspecific gastritis, negative for intestinal metaplasia, diogenes stain negative for helicobacter, esophageal mucosal biopsies without significant histopathologic abnormality negative for esophagitis. He then had a few other hospital visits for nausea/vomiting and has been treated with Reglan/PPI/Zofran in the past. He has seemed to improve with this, but is no longer takes the Reglan. There was some talk of adding Bethanechol if no improvement and possible Botox injections, but this has not been done as of yet. He denies any hx of stomach ulcers. His last endoscopy was a few months ago here at this facility. He has ESRD and gets HD on Tuesdays, , and Saturdays (Dr. Kennedy). No ETOH use. No Ibuprofen or Aleve. (Mya Christian) PFSH Past Medical History End-stage renal disease Congestive heart failure Hypertension Secondary hyperparathyroidism renal disease Diabetes mellitus Peripheral arterial disease/peripheral vascular disease Anemia renal disease Hx of ischemic colitis requiring partial colectomy and colostomy Hx gangrene right great toe Gastritis/Esophagitis Atherosclerotic vascular disease Depression/Anxiety CDiff Mitral regurgitation Secondary hyperparathyroidism secondary to Vitamin D Deficiency Gastroparesis Past Surgical History Bypass of the right leg. Amputation of the right big toe. Hemicolectomy/Colostomy. PCI status post stent 2 years ago after an [place]. Left av fistula Right tunneled subclavian dialysis catheter placement EGD (Mya Christian) Coded Allergies: No Known Allergies (Unverified , 06/22/16) Medications Allergies Coded Allergies Type Severity Reaction Last Updated Verified No Known Allergies 06/22/16 No Active Scripts Medications Dose Route/Sig Days Date Category Bumex (Bumetanide) 2 Mg Tab 2 Mg PO DAILY 07/24/16 Reported Enalapril (Enalapril Maleate) Unknown Strength Tab Unknown Dose PO DAILY 07/24/16 Reported Zofran Odt (Ondansetron Odt) 8 Mg Tab 8 Mg SL Q8H PRN 06/10/16 Rx Tramadol (Tramadol HCl) 50 Mg Tab 100 Mg PO BID PRN 06/02/16 Reported Pantoprazole (Pantoprazole Sodium) 40 Mg Tab 40 Mg PO DAILY 04/19/16 Rx Norvasc (Amlodipine Besylate) 10 Mg Tab 10 Mg PO DAILY 04/18/16 Reported Aspir-81 (Aspirin) 81 Mg Tabdr 81 Mg PO DAILY 04/18/16 Reported Buspirone (Buspirone HCl) 10 Mg Tab 10 Mg PO BID 04/18/16 Reported Citalopram (Citalopram Hydrobromide) 20 Mg Tab 20 Mg PO DAILY 04/18/16 Reported Metoprolol Tartrate 50 Mg Tab 50 Mg PO BID 04/18/16 Reported Family History Mother with leukemia Brother with brain aneurysm Father from injuries sustained in a motor vehicle collision Social History Patient smokes half a pack per day. No ETOH No illicit drugs. (Mya Christian) Review of Systems Constitutional: COMPLAINS OF: Fatigue, Weight loss, Change in appetite Respiratory: DENIES: Cough, Shortness of breath Cardiovascular: COMPLAINS OF: Lower Extremity Edema (mild RLE edema, chronic), DENIES: Chest pain, Palpitations Gastrointestinal: COMPLAINS OF: Abdominal pain, Nausea, Vomiting, Swelling of Abdomen, Heartburn, Hematemesis, DENIES: Black stools, Bloody stools, Constipation, Diarrhea Musculoskeletal: COMPLAINS OF: Back pain Hematologic/lymphatic: DENIES: Bruising Neurologic: COMPLAINS OF: Headache Psychiatric: DENIES: Confusion (ChristianMya James BOOGIE) GI Exam Vitals I&O Vital Signs Date Time Temp Pulse Resp B/P Pulse Ox O2 Delivery O2 Flow Rate FiO2 07/25/16 07:24 98.8 86 16 171/92 98 07/25/16 04:00 97.7 83 16 158/79 99 07/25/16 00:00 98.1 83 15 157/83 100 07/24/16 22:32 98.8 87 18 158/87 97 07/24/16 22:20 99 16 162/87 100 Room Air 07/24/16 18:42 99 20 182/99 98 Room Air 07/24/16 17:21 97 Room Air 07/24/16 16:32 98.6 90 20 221/98 100 I/O 07/24/16 07/24/16 07/24/16 07/25/16 07/25/16 07/25/16 07:00 15:00 23:00 07:00 15:00 23:00 Output Total 150 ml 300 ml Balance -150 ml -300 ml Output Urine Total 300 ml Emesis 150 ml Imaging Last Impressions Abdomen/Pelvis CT 07/24/16 1636 Signed Impressions: Service Date/Time: Sunday, July 24, 2016 18:03 - CONCLUSION: 1. Bilateral nonobstructing renal stones. No significant change compared to the prior exam. 2. The bowel gas pattern is within normal limits. 3. There've been no new or significant changes compared to the prior study. Joselito Tong MD Chest X-Ray 07/24/16 1633 Signed Impressions: Service Date/Time: Sunday, July 24, 2016 17:43 - CONCLUSION: No acute cardiopulmonary process. Randy Hung MD Abdomen X-Ray 07/24/16 0000 Signed Impressions: Service Date/Time: Sunday, July 24, 2016 17:45 - CONCLUSION: Benign stable 2 positional abdomen. Joselito Tong MD Laboratory Test 07/24/16 07/24/16 07/24/16 07/24/16 16:50 17:09 19:31 20:45 White Blood Count 19.1 TH/MM3 16.6 TH/MM3 Red Blood Count 4.29 MIL/MM3 3.72 MIL/MM3 Hemoglobin 12.5 GM/DL 10.7 GM/DL Hematocrit 35.9 % 31.7 % Mean Corpuscular Volume 83.7 FL 84.5 FL Mean Corpuscular Hemoglobin 29.2 PG 28.7 PG Mean Corpuscular Hemoglobin 34.9 % 34.0 % Concent Red Cell Distribution Width 13.6 % 13.7 % Platelet Count 278 TH/MM3 197 TH/MM3 Mean Platelet Volume 9.6 FL 9.6 FL Neutrophils (%) (Auto) 92.0 % 92.1 % Lymphocytes (%) (Auto) 2.8 % 3.0 % Monocytes (%) (Auto) 5.1 % 4.9 % Eosinophils (%) (Auto) 0.0 % 0.0 % Basophils (%) (Auto) 0.1 % 0.0 % Neutrophils # (Auto) 17.6 TH/MM3 15.3 TH/MM3 Lymphocytes # (Auto) 0.5 TH/MM3 0.5 TH/MM3 Monocytes # (Auto) 1.0 TH/MM3 0.8 TH/MM3 Eosinophils # (Auto) 0.0 TH/MM3 0.0 TH/MM3 Basophils # (Auto) 0.0 TH/MM3 0.0 TH/MM3 CBC Comment DIFF FINAL DIFF FINAL Differential Comment Prothrombin Time 11.6 SEC Prothromb Time International 1.0 RATIO Ratio Activated Partial 24.5 SEC Thromboplast Time Sodium Level 137 MEQ/L Potassium Level 4.4 MEQ/L Chloride Level 96 MEQ/L Carbon Dioxide Level 24.4 MEQ/L Anion Gap 17 MEQ/L Blood Urea Nitrogen 66 MG/DL Creatinine 8.46 MG/DL Estimat Glomerular Filtration 7 ML/MIN Rate Random Glucose 228 MG/DL Calcium Level 9.7 MG/DL Total Bilirubin 0.3 MG/DL Aspartate Amino Transf 11 U/L (AST/SGOT) Alanine Aminotransferase 12 U/L (ALT/SGPT) Alkaline Phosphatase 82 U/L Total Protein 8.1 GM/DL Albumin 3.8 GM/DL Blood Type O POSITIVE Antibody Screen NEGATIVE Lactic Acid Level 3.6 mmol/L 1.9 mmol/L Test 07/25/16 07/25/16 07/25/16 00:20 03:14 08:40 Urine Color LIGHT-YELLOW Urine Turbidity CLEAR Urine pH 7.5 Urine Specific [place] 1.012 Urine Protein 30 mg/dL Urine Glucose (UA) TRACE mg/dL Urine Ketones NEG mg/dL Urine Occult Blood TRACE Urine Nitrite NEG Urine Bilirubin NEG Urine Urobilinogen LESS THAN 2.0 MG/DL Urine Leukocyte Esterase NEG Urine WBC 1 /hpf Urine Bacteria RARE /hpf Urine Mucus FEW /lpf Microscopic Urinalysis Comment CULT NOT INDICATED White Blood Count 15.3 TH/MM3 Red Blood Count 3.79 MIL/MM3 Hemoglobin 10.8 GM/DL 10.7 GM/DL Hematocrit 32.5 % 31.7 % Mean Corpuscular Volume 85.9 FL Mean Corpuscular Hemoglobin 28.4 PG Mean Corpuscular Hemoglobin 33.1 % Concent Red Cell Distribution Width 13.7 % Platelet Count 210 TH/MM3 Mean Platelet Volume 9.1 FL Neutrophils (%) (Auto) 85.3 % Lymphocytes (%) (Auto) 7.4 % Monocytes (%) (Auto) 7.0 % Eosinophils (%) (Auto) 0.0 % Basophils (%) (Auto) 0.3 % Neutrophils # (Auto) 13.0 TH/MM3 Lymphocytes # (Auto) 1.1 TH/MM3 Monocytes # (Auto) 1.1 TH/MM3 Eosinophils # (Auto) 0.0 TH/MM3 Basophils # (Auto) 0.0 TH/MM3 CBC Comment DIFF FINAL Differential Comment Sodium Level 143 MEQ/L Potassium Level 5.0 MEQ/L Chloride Level 105 MEQ/L Carbon Dioxide Level 27.2 MEQ/L Anion Gap 11 MEQ/L Blood Urea Nitrogen 65 MG/DL Creatinine 7.87 MG/DL Estimat Glomerular Filtration 7 ML/MIN Rate Random Glucose 115 MG/DL Calcium Level 8.9 MG/DL Total Bilirubin 0.5 MG/DL Aspartate Amino Transf 8 U/L (AST/SGOT) Alanine Aminotransferase 9 U/L (ALT/SGPT) Alkaline Phosphatase 64 U/L Total Protein 6.9 GM/DL Albumin 3.3 GM/DL Date/Time Procedure Status Source Growth 07/24/16 17:09 Aerobic Blood Culture Received Blood Peripheral Pending 07/24/16 17:09 Anaerobic Blood Culture Received Blood Peripheral Pending Physical Examination HEENT: Normocephalic; atraumatic; no jaundice. CHEST: Resp even/unlabored CARDIAC: RRR ABDOMEN: Soft, nondistended, mild epigastric tenderness; no hepatosplenomegaly ; bowel sounds are present in all four quadrants. Right sided colostomy with liquid light brown stool EXTREMITIES: Trace edema to RLE SKIN: Normal; no rash; no jaundice. [employer]: No focal deficits; alert and oriented times three. (Mya Christian) Assessment and Plan Plan ASSESSMENT: - Recurrent intractable nausea/vomiting with hx of known gastroparesis. EGD ( 04/21/16)------> duodenal bulb nodule, gastritis antrum, hiatal hernia, schatzki's ring, dilatation Savary 14, retroflexed views revealed a hiatal hernia. Pathology with peptic duodenitis, gastric antral mucosal biopsy with mild chronic nonspecific gastritis, negative for intestinal metaplasia, diogenes stain negative for helicobacter, esophageal mucosal biopsies without significant histopathologic abnormality negative for esophagitis. He then had a few other hospital visits for nausea/vomiting and has been treated with Reglan/PPI/Zofran in the past. He has seemed to improve with this, symptoms return when he goes off of the Reglan. Will give trial of Bethanechol. Plan for egd with botox injections, today vs. tomorrow. PPI. - Possible GI bleed. Patient has been having persistent nausea and vomiting and reports that this is very dark in color, almost black. He denies any red blood and his stool in his colostomy is a light brown color. H&H has remained stable 10.7/31.7, PPI - GERD. PPI - Leukocytosis, mild. Afebrile. Likely related to persistent vomiting. - ESRD, HD Tuesdays//Sunday per Dr. Kennedy - Hypertension with elevated BP. Patient reports that he has not been able to take his by mouth medications secondary to his persistent nausea and vomiting. Per primary - DM per Primary. PLAN: - Plan for for EGD with Botox injections today versus tomorrow - Obtain consents - Nothing by mouth except for medications - Trial of bethanechol - PPI - Monitor labs - Supportive care - Further recommendations to follow based on results of above - Pt seen and examined by Dr. Gaspar and myself and this note is written on her behalf (Mya Christian) Physician Comments seen, examined agree with above (Bratu,BrittneeMya Julian Jul 25, 2016 10:22 Brittnee Gaspar MD Jul 25, 2016 16:07
[2016-07-25] MEDS: METOPROLOL TARTRATE 50 MG TAB PO SCH ×2 (10:36→21:00)
[2016-07-25] MEDS: CITALOPRAM HYDROBROMIDE 20 MG TAB PO SCH (10:37)
[2016-07-25] MEDS: busPIRone HCL 10 MG TAB PO SCH ×2 (10:38→21:00)
[2016-07-25] MEDS: SODIUM CHLORIDE 0.9% FLUSH 5 ML FLUSH FLUSH SCH ×2 (10:39→21:00)
[2016-07-25] MEDS ORDERED: BACLOFEN 10 MG TAB PO ONE (11:00)
--- NOTE | 2016-07-25 11:55 | PD.CONS ---
[facility] Service Nephrology Reason for Consult Known ESRD on HD Primary Care Physician [facility] History of Present Illness The patient is a 56 yo [place] male who is known to our services for ESRD. Presented to the ED last evening with complaints of intractable nausea & vomiting since Sunday evening. Despite his evening-time complaints, missed his regularly scheduled HD on Sunday. His vomiting and nausea has been a recurrent issue for the past several months. He has had work up in the hospital , but has yet to see anyone for outpatient follow-up and management. Denies any fever. Some abdominal pain that he attributes to retching. Little po intake since Sunday evening. Denies CP or SOB. No diarrhea of increased ostomy output. (Eugenie Britton ) Review of Systems Gastrointestinal: COMPLAINS OF: Nausea, Vomiting, Anorexia (Eugenie Britton) Past Family Social History Allergies: Coded Allergies: No Known Allergies (Unverified , 06/22/16) Past Medical History End-stage renal disease Congestive heart failure Hypertension Secondary hyperparathyroidism renal disease Diabetes mellitus Peripheral arterial disease/peripheral vascular disease Anemia renal disease Hx of ischemic colitis requiring partial colectomy and colostomy Hx gangrene right great toe Gastritis/Esophagitis Atherosclerotic vascular disease Depression/Anxiety C Diff history Mitral regurgitation Secondary hyperparathyroidism secondary to Vitamin D Deficiency Gastroparesis Past Surgical History Bypass of the right leg. Amputation of the right big toe. Hemicolectomy/Colostomy. PCI status post stent 2 years ago after an [place]. Left av fistula Right tunneled subclavian dialysis catheter placement EGD Reported Medications Reported Meds & Active Scripts Active Zofran Odt (Ondansetron Odt) 8 Mg Tab 8 Mg SL Q8H PRN Pantoprazole (Pantoprazole Sodium) 40 Mg Tab 40 Mg PO DAILY Reported Bumex (Bumetanide) 2 Mg Tab 2 Mg PO DAILY Enalapril (Enalapril Maleate) Unknown Strength Tab Unknown Dose PO DAILY Tramadol (Tramadol HCl) 50 Mg Tab 100 Mg PO BID PRN Norvasc (Amlodipine Besylate) 10 Mg Tab 10 Mg PO DAILY Aspir-81 (Aspirin) 81 Mg Tabdr 81 Mg PO DAILY Buspirone (Buspirone HCl) 10 Mg Tab 10 Mg PO BID Citalopram (Citalopram Hydrobromide) 20 Mg Tab 20 Mg PO DAILY Metoprolol Tartrate 50 Mg Tab 50 Mg PO BID Active Ordered Medications Current Medications Medications (Trade) Dose Ordered Sig/Hallie Route Start Time Stop Time Status Last Admin (Protonix Inj/NS Inj) 100 ml @ 10 mls/hr Q10H IV 07/24/16 16:45 07/25/16 03:02 (NS Flush) 2 ml UNSCH PRN FLUSH 07/24/16 20:00 07/24/16 22:39 (NS Flush) 2 ml BID FLUSH 07/24/16 21:00 07/25/16 10:39 (Zofran Inj) 4 mg Q6H PRN IVP 07/24/16 20:00 07/25/16 06:07 (Narcan Inj) 0.4 mg UNSCH PRN IV 07/24/16 20:00 (Morphine Inj) 2 mg Q6HR PRN IV PUSH 07/24/16 23:45 07/25/16 06:07 (Norvasc) 10 mg DAILY PO 07/25/16 09:00 07/25/16 10:37 (Buspar) 10 mg BID PO 07/25/16 09:00 07/25/16 10:38 (CeleXA) 20 mg DAILY PO 07/25/16 09:00 07/25/16 10:37 Metoprolol Tartrate 50 mg 50 mg BID PO 07/25/16 09:00 07/25/16 10:36 Sodium Chloride 500 ml @ 50 mls/hr Q10H IV 07/25/16 09:45 07/25/16 19:44 (NS 1000 ml Inj) 1,000 ml @ 0 mls/hr Q0M PRN IV 07/25/16 09:59 Heparin Sodium (Porcine) 8000 units 8,000 units UNSCH PRN IVF 07/25/16 10:00 Sodium Chloride 1,000 ml @ 200 mls/hr Q5H PRN IV 07/25/16 09:59 (NS 1000 ml Inj) 1,000 ml @ 0 mls/hr Q0M PRN IV 07/25/16 09:59 (Mannitol Inj) 12.5 gm UNSCH PRN IV 07/25/16 10:00 (Albumin 25% Inj) 25 gm UNSCH PRN IV 07/25/16 10:00 (NS Flush) 5 ml UNSCH PRN IV FLUSH 07/25/16 10:00 (Heparin Inj) UNSCH PRN .XX 07/25/16 10:00 (Gentamicin (Dialysis) Inj) 20 mg UNSCH PRN IV 07/25/16 10:00 (Zofran Inj) 4 mg UNSCH PRN IV 07/25/16 10:00 (Tylenol) 650 mg UNSCH PRN PO 07/25/16 10:00 (Benadryl) 25 mg UNSCH PRN PO 07/25/16 10:00 (Nitrostat Sl) 0.4 mg UNSCH PRN SL 07/25/16 10:00 (Catapres) 0.1 mg UNSCH PRN PO 07/25/16 10:00 (Gelfoam 12 Mm/7 Mm Top) 1 foam UNSCH PRN TOP 07/25/16 10:00 (Apresoline Inj) 20 mg Q4H PRN IV PUSH 07/25/16 10:15 (Lioresal) 10 mg Q8H PRN PO 07/25/16 19:00 (Urecholine) 25 mg Q8HR PO 07/25/16 14:00 UNV Family History NC Social History Lives alone. Tobacco use Marijuana use No EtOH use. (Eugenie Britton) Physical Exam Vital Signs Vital Signs Date Time Temp Pulse Resp B/P Pulse Ox O2 Delivery O2 Flow Rate FiO2 07/25/16 11:44 97 21 07/25/16 11:16 98.2 87 16 165/95 99 07/25/16 07:24 98.8 86 16 171/92 98 07/25/16 04:00 97.7 83 16 158/79 99 07/25/16 00:00 98.1 83 15 157/83 100 07/24/16 22:32 98.8 87 18 158/87 97 07/24/16 22:20 99 16 162/87 100 Room Air 07/24/16 18:42 99 20 182/99 98 Room Air 07/24/16 17:21 97 Room Air 07/24/16 16:32 98.6 90 20 221/98 100 Physical Exam GENERAL: Laying in bed. No distress. SKIN: Warm and dry. HEAD: Atraumatic. Normocephalic. EYES: Pupils equal and round. No scleral icterus. No injection or drainage. ENT: No nasal bleeding or discharge. Mucous membranes pink and moist. NECK: Trachea midline. No JVD. CARDIOVASCULAR: Regular rate and rhythm. RESPIRATORY: No accessory muscle use. Clear to auscultation. Breath sounds equal bilaterally. GASTROINTESTINAL: Abdomen soft, non-tender, nondistended. Hepatic and splenic margins not palpable. MUSCULOSKELETAL: Extremities without clubbing, cyanosis, or edema. No obvious deformities. NEUROLOGICAL: Awake and alert. Normal speech. PSYCHIATRIC: Appropriate mood and affect; insight and judgment normal. Laboratory Laboratory Tests Test 07/24/16 07/24/16 07/24/16 07/24/16 16:50 17:09 19:31 20:45 White Blood Count 19.1 16.6 Red Blood Count 4.29 3.72 Hemoglobin 12.5 10.7 Hematocrit 35.9 31.7 Mean Corpuscular Volume 83.7 84.5 Mean Corpuscular Hemoglobin 29.2 28.7 Mean Corpuscular Hemoglobin 34.9 34.0 Concent Red Cell Distribution Width 13.6 13.7 Platelet Count 278 197 Mean Platelet Volume 9.6 9.6 Neutrophils (%) (Auto) 92.0 92.1 Lymphocytes (%) (Auto) 2.8 3.0 Monocytes (%) (Auto) 5.1 4.9 Eosinophils (%) (Auto) 0.0 0.0 Basophils (%) (Auto) 0.1 0.0 Neutrophils # (Auto) 17.6 15.3 Lymphocytes # (Auto) 0.5 0.5 Monocytes # (Auto) 1.0 0.8 Eosinophils # (Auto) 0.0 0.0 Basophils # (Auto) 0.0 0.0 CBC Comment DIFF FINAL DIFF FINAL Differential Comment Prothrombin Time 11.6 Prothromb Time International 1.0 Ratio Activated Partial 24.5 Thromboplast Time Sodium Level 137 Potassium Level 4.4 Chloride Level 96 Carbon Dioxide Level 24.4 Anion Gap 17 Blood Urea Nitrogen 66 Creatinine 8.46 Estimat Glomerular Filtration 7 Rate Random Glucose 228 Calcium Level 9.7 Total Bilirubin 0.3 Aspartate Amino Transf 11 (AST/SGOT) Alanine Aminotransferase 12 (ALT/SGPT) Alkaline Phosphatase 82 Total Protein 8.1 Albumin 3.8 Blood Type O POSITIVE Antibody Screen NEGATIVE Lactic Acid Level 3.6 1.9 Test 07/25/16 07/25/16 07/25/16 00:20 03:14 08:40 Urine Color LIGHT-YELLOW Urine Turbidity CLEAR Urine pH 7.5 Urine Specific [place] 1.012 Urine Protein 30 Urine Glucose (UA) TRACE Urine Ketones NEG Urine Occult Blood TRACE Urine Nitrite NEG Urine Bilirubin NEG Urine Urobilinogen LESS THAN 2.0 Urine Leukocyte Esterase NEG Urine WBC 1 Urine Bacteria RARE Urine Mucus FEW Microscopic Urinalysis Comment CULT NOT INDICATED White Blood Count 15.3 Red Blood Count 3.79 Hemoglobin 10.8 10.7 Hematocrit 32.5 31.7 Mean Corpuscular Volume 85.9 Mean Corpuscular Hemoglobin 28.4 Mean Corpuscular Hemoglobin 33.1 Concent Red Cell Distribution Width 13.7 Platelet Count 210 Mean Platelet Volume 9.1 Neutrophils (%) (Auto) 85.3 Lymphocytes (%) (Auto) 7.4 Monocytes (%) (Auto) 7.0 Eosinophils (%) (Auto) 0.0 Basophils (%) (Auto) 0.3 Neutrophils # (Auto) 13.0 Lymphocytes # (Auto) 1.1 Monocytes # (Auto) 1.1 Eosinophils # (Auto) 0.0 Basophils # (Auto) 0.0 CBC Comment DIFF FINAL Differential Comment Sodium Level 143 Potassium Level 5.0 Chloride Level 105 Carbon Dioxide Level 27.2 Anion Gap 11 Blood Urea Nitrogen 65 Creatinine 7.87 Estimat Glomerular Filtration 7 Rate Random Glucose 115 Calcium Level 8.9 Total Bilirubin 0.5 Aspartate Amino Transf 8 (AST/SGOT) Alanine Aminotransferase 9 (ALT/SGPT) Alkaline Phosphatase 64 Total Protein 6.9 Albumin 3.3 Date/Time Procedure Status Source Growth 07/24/16 17:09 Aerobic Blood Culture - Preliminary Resulted Blood Peripheral NO GROWTH IN 1 DAY 07/24/16 17:09 Anaerobic Blood Culture - Preliminary Resulted Blood Peripheral NO GROWTH IN 1 DAY (Eugenie Britton) Result Diagram: 07/25/16 0840 07/25/16 0314 Imaging Last Impressions Abdomen/Pelvis CT 07/24/16 1636 Signed Impressions: Service Date/Time: Sunday, July 24, 2016 18:03 - CONCLUSION: 1. Bilateral nonobstructing renal stones. No significant change compared to the prior exam. 2. The bowel gas pattern is within normal limits. 3. There've been no new or significant changes compared to the prior study. Joselito Tong MD Chest X-Ray 07/24/16 1633 Signed Impressions: Service Date/Time: Sunday, July 24, 2016 17:43 - CONCLUSION: No acute cardiopulmonary process. Randy Hung MD Abdomen X-Ray 07/24/16 0000 Signed Impressions: Service Date/Time: Sunday, July 24, 2016 17:45 - CONCLUSION: Benign stable 2 positional abdomen. Joselito Tong MD (Eugenie Britton) Assessment and Plan Problem List: (1) ESRD (end stage renal disease) on dialysis Plan: HD today as per regular schedule. Continue on TTS. Minimal UF today. OK for hydration as there is no signs of fluid retention. Medications should be adjusted for ESRD. Avoid gadolinium. (2) Intractable nausea and vomiting Plan: Mgmt as per GI. Appreciate input. BCx pending (3) DM (diabetes mellitus) Plan: Mgmt as per primary (4) HTN (hypertension) Plan: Continue on home medications. (Eugenie Britton) Assessment and Plan The exam, history, and the medical decision-making described in the above note were completed with the assistance of the PA-C. I reviewed and agree with the findings presented. I attest that I had a [id number] encounter with the patient on the same day, and personally performed and documented my assessment and findings in the medical record. (David Kennedy MD) Problem Qualifiers (1) Intractable nausea and vomiting: Qualified Code: R11.2 - Intractable vomiting with nausea, unspecified vomiting type Eugenie Britton Jul 25, 2016 11:55 David Kennedy MD Jul 25, 2016 14:42
[2016-07-25] MEDS ORDERED: ONABOTULINUMTOXINA INJ 100 UNITS/VIAL SCH (13:00)
[2016-07-25] MEDS: BETHANECHOL CHL 25 MG TAB PO SCH ×2 (14:00→22:00)
[2016-07-26] VITALS (7 sets, daily range): BP systolic 121–187; BP diastolic 63–89; PULSE 65–78; RESP 16–20; TEMP 98.2–99.1; O2SAT 95–100
[2016-07-26] MEDS: MORPHINE SULFATE 4 MG/ML INJ IV PUSH PRN ×2 (00:27→06:10)
[2016-07-26] MEDS: ONDANSETRON HCL 4 MG/2 ML VIAL IVP PRN ×3 (00:27→11:41)
[2016-07-26] MEDS: PANTOPRAZOLE INJ 80 MG in SODIUM CHLORIDE 0.9% INJ 100 ML IV SCH ×2 (03:26→09:24)
[2016-07-26] MEDS: BETHANECHOL CHL 25 MG TAB PO SCH ×2 (06:00→15:06)
[2016-07-26 06:58] LABS: HEMATOCRIT 33.3 % (39.0-51.0); MEAN CORPUSCULAR HEMOGLOBIN 28.3 PG (27.0-34.0); MEAN CORPUSCULAR HGB CONC 32.9 % (32.0-36.0); PLATELET COUNT 176 TH/MM3 (150-450); RED BLOOD COUNT 3.87 MIL/MM3 (4.50-5.90); RED CELL DISTRIBUTION WIDTH 13.9 % (11.6-17.2); REVIEW FLAG FINAL; WHITE BLOOD COUNT 9.7 TH/MM3 (4.0-11.0)
[2016-07-26 07:39] LABS: BICARBONATE 29.6 MEQ/L (21.0-32.0)
[2016-07-26] MEDS: CITALOPRAM HYDROBROMIDE 20 MG TAB PO SCH (09:00)
[2016-07-26] MEDS: METOPROLOL TARTRATE 50 MG TAB PO SCH (09:00)
[2016-07-26] MEDS: busPIRone HCL 10 MG TAB PO SCH (09:00)
[2016-07-26] MEDS: SODIUM CHLORIDE 0.9% FLUSH 5 ML FLUSH FLUSH SCH (09:24)
--- NOTE | 2016-07-26 10:05 | HHI.NPPN ---
Subjective History of Present Illness The patient is a 56 yo [place] male who is known to our services for ESRD. Presented to the ED last evening with complaints of intractable nausea & vomiting since Sunday evening. Despite his evening-time complaints, missed his regularly scheduled HD on Sunday. His vomiting and nausea has been a recurrent issue for the past several months. He has had work up in the hospital , but has yet to see anyone for outpatient follow-up and management. Denies any fever. Some abdominal pain that he attributes to retching. Little po intake since Sunday evening. Denies CP or SOB. No diarrhea of increased ostomy output. Interval History Feeling OK today. Some nausea last night. Pending Botox injections today. (Eugenie Britton) Review of Systems Gastrointestinal Gastrointestinal: Nausea & Vomiting (Eugenie Britton) Objective Data Data 07/25/16 07/26/16 19:00 07:00 Intake Total 796 ml Output Total 1800 ml Balance -1800 ml 796 ml Intake Oral 480 ml IV Total 316 ml Output Urine Total 800 ml Hemodialysis 1000 ml # Voids 1 # Bowel Movements 0 Vital Signs Date Time Temp Pulse Resp B/P Pulse Ox O2 Delivery O2 Flow Rate FiO2 07/26/16 04:00 98.3 76 16 121/63 95 07/26/16 00:00 98.2 73 16 179/89 100 07/25/16 20:31 174/78 07/25/16 20:00 98.2 67 14 198/96 99 07/25/16 17:08 98.3 59 16 163/76 97 07/25/16 11:44 97 21 07/25/16 11:16 98.2 87 16 165/95 99 (Eugenie Britton) -: 07/26/16 0616 07/26/16 0616 Medication Review Current Medications Medications (Trade) Dose Ordered Sig/Hallie Route Start Time Stop Time Status Last Admin (Protonix Inj/NS Inj) 100 ml @ 10 mls/hr Q10H IV 07/24/16 16:45 07/26/16 09:24 (NS Flush) 2 ml UNSCH PRN FLUSH 07/24/16 20:00 07/24/16 22:39 (NS Flush) 2 ml BID FLUSH 07/24/16 21:00 07/26/16 09:24 (Zofran Inj) 4 mg Q6H PRN IVP 07/24/16 20:00 07/26/16 06:10 (Narcan Inj) 0.4 mg UNSCH PRN IV 07/24/16 20:00 (Morphine Inj) 2 mg Q6HR PRN IV PUSH 07/24/16 23:45 07/26/16 06:10 (Norvasc) 10 mg DAILY PO 07/25/16 09:00 07/25/16 10:37 (Buspar) 10 mg BID PO 07/25/16 09:00 07/25/16 10:38 (CeleXA) 20 mg DAILY PO 07/25/16 09:00 07/25/16 10:37 Metoprolol Tartrate 50 mg 50 mg BID PO 07/25/16 09:00 07/25/16 10:36 (NS 1000 ml Inj) 1,000 ml @ 0 mls/hr Q0M PRN IV 07/25/16 09:59 07/25/16 17:48 Heparin Sodium (Porcine) 8000 units 8,000 units UNSCH PRN IVF 07/25/16 10:00 Sodium Chloride 1,000 ml @ 200 mls/hr Q5H PRN IV 07/25/16 09:59 (NS 1000 ml Inj) 1,000 ml @ 0 mls/hr Q0M PRN IV 07/25/16 09:59 (Mannitol Inj) 12.5 gm UNSCH PRN IV 07/25/16 10:00 (Albumin 25% Inj) 25 gm UNSCH PRN IV 07/25/16 10:00 (NS Flush) 5 ml UNSCH PRN IV FLUSH 07/25/16 10:00 (Heparin Inj) UNSCH PRN .XX 07/25/16 10:00 07/25/16 17:47 (Gentamicin (Dialysis) Inj) 20 mg UNSCH PRN IV 07/25/16 10:00 07/25/16 17:47 (Zofran Inj) 4 mg UNSCH PRN IV 07/25/16 10:00 07/25/16 12:29 (Tylenol) 650 mg UNSCH PRN PO 07/25/16 10:00 (Benadryl) 25 mg UNSCH PRN PO 07/25/16 10:00 (Nitrostat Sl) 0.4 mg UNSCH PRN SL 07/25/16 10:00 (Catapres) 0.1 mg UNSCH PRN PO 07/25/16 10:00 (Gelfoam 12 Mm/7 Mm Top) 1 foam UNSCH PRN TOP 07/25/16 10:00 (Apresoline Inj) 20 mg Q4H PRN IV PUSH 07/25/16 10:15 (Lioresal) 10 mg Q8H PRN PO 07/25/16 19:00 (Urecholine) 25 mg Q8HR PO 07/25/16 14:00 (Botox Inj) 100 units ONCE .XX 07/26/16 11:30 07/26/16 11:31 (Eugenie Britton) Physical Exam General Appearance: No Acute Distress, Comfortable (Eugenie Britton) Neck Neck Exam: Neck Supple (Eugenie Britton) Pulmonary Resp Exam: Clear Bilaterally, Breath Sounds Equal (Eugenie Britton) Cardiology CV Exam: Regular, Normal Sinus Rhythm (Eugenie Britton) Gastrointestinal/Abdomen GI Exam: Soft, Non-Tender (Eugenie Britton) Integumentary Skin Exam: Clear, Warm, Dry (Eugenie Britton) Extremeties Extremities Exam: No Edema (Eugenie Britton) Neurologic Neuro Exam: Alert, Awake, Oriented (Eugenie Britton) Psychiatric Psych Exam: Appropriate Responses (Eugenie Britton) Assessment/Plan Problem List: (1) ESRD (end stage renal disease) on dialysis Plan: Continue on TTS with minimal UF until po intake improves Medications should be adjusted for ESRD. Avoid gadolinium. (2) Intractable nausea and vomiting Plan: Mgmt as per GI. Appreciate input. (3) DM (diabetes mellitus) Plan: Mgmt as per primary (4) HTN (hypertension) Plan: Continue on home medications. (Eugenie Britton) Plan The exam, history, and the medical decision-making described in the above note were completed with the assistance of the PAJackson. I reviewed and agree with the findings presented. (David Kennedy MD) Problem Qualifiers (1) Intractable nausea and vomiting: Qualified Code: R11.2 - Intractable vomiting with nausea, unspecified vomiting type Eugenie Britton Jul 26, 2016 10:05 David Kennedy MD Aug 29, 2016 10:42
--- NOTE | 2016-07-26 10:51 | HHI.PR ---
Subjective Remarks Follow-up for questionable hematemesis Patient still with mild nausea but no vomiting. No hematemesis, melena or hematochezia. Not short of breath. No chest pain. Objective Vitals Vital Signs Date Time Temp Pulse Resp B/P Pulse Ox O2 Delivery O2 Flow Rate FiO2 07/26/16 08:00 98.8 65 20 158/83 97 07/26/16 04:00 98.3 76 16 121/63 95 07/26/16 00:00 98.2 73 16 179/89 100 07/25/16 20:31 174/78 07/25/16 20:00 98.2 67 14 198/96 99 07/25/16 17:08 98.3 59 16 163/76 97 07/25/16 11:44 97 21 07/25/16 11:16 98.2 87 16 165/95 99 I/O 07/25/16 07/25/16 07/25/16 07/26/16 07/26/16 07/26/16 07:00 15:00 23:00 07:00 15:00 23:00 Intake Total 239 ml 557 ml Output Total 300 ml 800 ml 1000 ml Balance -300 ml -800 ml -761 ml 557 ml Intake Oral 480 ml IV Total 239 ml 77 ml Output Urine Total 300 ml 800 ml Hemodialysis 1000 ml # Voids 1 # Bowel Movements 0 Result Diagram: 07/26/16 0616 07/26/16 0616 Objective Remarks GENERAL: Not in distress. SKIN: Warm and dry. Dialysis catheter in place right chest wall. HEENT: Normocephalic. Pupils equal and round. Mucous membranes mildly dry. CARDIOVASCULAR: Regular rate and rhythm. No murmur appreciated. RESPIRATORY: No accessory muscle use. Clear to auscultation. Breath sounds equal bilaterally. GASTROINTESTINAL: Abdomen soft, non-tender, nondistended. Bowel sounds x4. Ostomy in place in right abdomen with brown semi-formed stools. No epigastric tenderness MUSCULOSKELETAL: No obvious deformities. No clubbing or cyanosis. No edema. NEUROLOGICAL: Awake and alert. No focal neurological deficits. Moves upper and lower extremities spontaneously. Normal speech. PSYCHIATRIC: Appropriate mood and affect; insight and judgment normal. A/P Problem List: (1) GI bleed ICD Code: K92.2 Status: Acute (2) Anemia ICD Code: D64.9 Status: Acute (3) Nausea & vomiting ICD Code: R11.2 Status: Acute (4) ESRD (end stage renal disease) on dialysis ICD Code: N18.6 Status: Chronic (5) Leukocytosis ICD Code: D72.829 Status: Acute Assessment and Plan Mr. Cintron is a 56 year-old male presented to the emergency room on 07/24/2016 for evaluation of abdominal pain, nausea, and vomiting Suspected GI bleed - Emesis Hemoccult + in ER. Hemoglobin has remained stable at 10.7, today 11.0. Abdominal CT showed no significant change compared to prior exams. - Protonix drip, nothing by mouth, GI consulted, for EGD today with possible Botox injection, bethanechol per GI Acute blood loss anemia on top of chronic normocytic anemia of chronic disease - Initial hemoglobin 12.5, suspect element of hemoconcentration from dehydration. Hemoglobin relatively stable - Monitor H&H, transfuse if indicated Intractable Nausea, vomiting, and hiccups - Antiemetics as needed, symptomatic management, baclofen. - Diet per GI End-stage renal disease on hemodialysis - Consulted patient's entry table operator Dr. Kennedy - assistance appreciated - avoid nephrotoxins, continue IVF Leukocytosis with neutrophilia WBC 19.1, 16.6, 15.3, trending down. Afebrile. Tachycardia and lactic acidosis on admission (dehydration vs GIB vs SIRS) given IV vancomycin and Zosyn in the ED. UA and chest x-ray clear. - blood cultures x 2; no leukocytosis, antibiotics were stopped, leukocytosis resolved, could also be secondary to hemoconcentration. Continue mild IVF. Hypertensive urgency Patient is not tolerating his home oral BP meds for 3 days. Complaining of headache. -Resume home BP medications if tolerated -If not tolerating oral medications, IV hydralazine DVT prophylaxis - SCDs, pharmacological prophylaxis contraindicated because of possible GI bleed Discharge Planning Discharge if tolerating diet and EGD unremarkable Maris Love MD Jul 26, 2016 10:51
[2016-07-26] MEDS ORDERED: ONABOTULINUMTOXINA INJ 100 UNITS/VIAL SCH (11:30)
[2016-07-26] MEDS ORDERED: PROPOFOL 200 MG/20 ML AMP IV ONE (12:22)
--- NOTE | 2016-07-26 12:47 | GIPROC ---
[facility] [address] [facility]. [facility], [address] EGD PROCEDURE REPORT EXAM DATE: 07/26/2016 PATIENT NAME: Missael Cintron MR #: [id number] BIRTHDATE: 1960 ATTENDING: Brittnee Gaspar MD ORDER #: [id number] VICE PRESIDENT OF RECRUITING: Carlitos Carreno and Cameron Elkins STATUS: inpatient INDICATIONS: The patient is a 56 yr old male here for an EGD due to nausea, vomiting, gastroparesis PROCEDURE PERFORMED: EGD w/ biopsy EGD w/ dilation of esophagus via guidewire EGD w/ directed submucosal injection(s), any substance MEDICATIONS: None and Per Anesthesia. TOPICAL ANESTHETIC: none CONSENT: The patient understands the risks and benefits of the procedure and understands that these risks include, but are not limited to: sedation, allergic reaction, infection, perforation and/or bleeding. Alternative means of evaluation and treatment include, among others: physical exam, x-rays, and/or surgical intervention. The patient elects to proceed with this endoscopic procedure. medical equipment was checked for proper function. Hand hygiene and appropriate measures for infection prevention was taken. After the risks, benefits and alternatives of the procedure were thoroughly explained, Informed consent was verified, confirmed and timeout was successfully executed by the treatment team. The patient was anesthetized with topical anesthesia and the Pentax [id number] and [id number] endoscope was introduced through the mouth and advanced to the second portion of the duodenum. Retroflexed views revealed a hiatal hernia The gastroscope was then slowly withdrawn and removed. Duodenitis second portion-biopsy gastritis antrum-biopsy esophagitis/stricture distal esophagus-biopsy old peg site in gastric body BOTOX 100 units in pyloric channel-25 units in each quadrant injected dilatation Savary 12.8, 14. ADVERSE EVENTS: There were no complications. IMPRESSIONS: 1. Duodenitis second portion-biopsy gastritis antrum-biopsy esophagitis/stricture distal esophagus-biopsy old peg site in gastric body BOTOX 100 units in pyloric channel-25 units in each quadrant injected dilatation Savary 12.8, 14 2. Retroflexed views revealed a hiatal hernia RECOMMENDATIONS: 1. Await biopsy results. Biopsy results will not be ready for 7-10 days. If you don't hear from us in two weeks, call our office for biopsy results. 2. Anti-reflux regimen 3. Continue PPI 4. Start PPI 5. Dilatations PRN PATIENT CONDITION: stable DISPOSITION: Inpatient REPEAT EXAM: EGD pending biopsy results Brittnee Gaspar MD eSigned: Brittnee Gaspar MD 07/26/2016 12:47 PM cc: PATIENT NAME: Missael Cintron MR#: [id number]
[2016-07-26] MEDS ORDERED: PROT40TA PO (16:02)
[2016-07-26] MEDS ORDERED: BETH25 PO (16:03)
--- NOTE | 2016-07-26 16:04 | HHI.DS ---
Discharge Summary Admission Date Jul 24, 2016 at 18:38 Discharge Date: Jul 26, 2016 Admitting Diagnosis SIRS, Intractable Nausea and Vomiting (1) GI bleed ICD Code: K92.2 Diagnosis: Principal (2) Anemia ICD Code: D64.9 Diagnosis: Secondary (3) Nausea & vomiting ICD Code: R11.2 Diagnosis: Secondary (4) ESRD (end stage renal disease) on dialysis ICD Code: N18.6 Diagnosis: Secondary (5) Leukocytosis ICD Code: D72.829 Diagnosis: Secondary Procedures s/p EGD: 1. Duodenitis second portion-biopsy gastritis antrum-biopsy esophagitis/stricture distal esophagus-biopsy old peg site in gastric body BOTOX 100 units in pyloric channel-25 units in each quadrant injected dilatation Savary 12.8, 14 2. Retroflexed views revealed a hiatal hernia Brief History - From Admission Mr. Cintron is a 56 year-old male with a history of end-stage renal disease on hemodialysis, hypertension, diabetes mellitus, and gastroparesis presented to the emergency room on 07/24/2016 for evaluation of abdominal pain, nausea, and vomiting since 07/22/2016. The patient is seen in the CDU. He states that he has been vomiting "constantly " since Sunday07/22/16. He says he has been unable to eat for the past "couple of days"; symptoms are severe. He reports associated epigastric pain that he states is "stress pain". He denies bright red blood in emesis but does report very dark brown emesis. He has a colostomy due to a previous bowel obstruction with perforation and reports he has been having liquid stools without black or red colored output from the colostomy. He denies any recent and states her steroids. He denies any history of gastric ulcers. The patient denies any recent fever, hematuria, dysuria, shortness of breath, or syncope. He reports chronic chest pain and states that his PCP is aware and he has been evaluated for this. He denies any history of liver disease, hepatitis, COPD, CVA, seizures, thyroid problems, or cancers. . CBC/BMP: 07/26/16 0616 07/26/16 0616 Significant Findings Laboratory Tests Test 07/24/16 07/24/16 07/24/16 07/25/16 16:50 17:09 20:45 00:20 White Blood Count 19.1 TH/MM3 16.6 TH/MM3 (4.0-11.0) (4.0-11.0) Red Blood Count 4.29 MIL/MM3 3.72 MIL/MM3 (4.50-5.90) (4.50-5.90) Hemoglobin 12.5 GM/DL 10.7 GM/DL (13.0-17.0) (13.0-17.0) Hematocrit 35.9 % 31.7 % (39.0-51.0) (39.0-51.0) Neutrophils (%) (Auto) 92.0 % 92.1 % (16.0-70.0) (16.0-70.0) Lymphocytes (%) (Auto) 2.8 % 3.0 % (9.0-44.0) (9.0-44.0) Neutrophils # (Auto) 17.6 TH/MM3 15.3 TH/MM3 (1.8-7.7) (1.8-7.7) Lymphocytes # (Auto) 0.5 TH/MM3 0.5 TH/MM3 (1.0-4.8) (1.0-4.8) Monocytes # (Auto) 1.0 TH/MM3 (0-0.9) Chloride Level 96 MEQ/L (98-107) Anion Gap 17 MEQ/L (5-15) Blood Urea Nitrogen 66 MG/DL (7-18) Creatinine 8.46 MG/DL (0.60-1.30) Estimat Glomerular Filtration 7 ML/MIN (>89) Rate Random Glucose 228 MG/DL (74-106) Aspartate Amino Transf 11 U/L (15-37) (AST/SGOT) Lactic Acid Level 3.6 mmol/L (0.4-2.0) Urine Protein 30 mg/dL (NEG-TRACE) Urine Occult Blood TRACE (NEG) Urine Bacteria RARE /hpf (NONE) Urine Mucus FEW /lpf (OCC) Test 07/25/16 07/25/16 07/26/16 03:14 08:40 06:16 White Blood Count 15.3 TH/MM3 (4.0-11.0) Red Blood Count 3.79 MIL/MM3 3.87 MIL/MM3 (4.50-5.90) (4.50-5.90) Hemoglobin 10.8 GM/DL 10.7 GM/DL 11.0 GM/DL (13.0-17.0) (13.0-17.0) (13.0-17.0) Hematocrit 32.5 % 31.7 % 33.3 % (39.0-51.0) (39.0-51.0) (39.0-51.0) Neutrophils (%) (Auto) 85.3 % (16.0-70.0) Lymphocytes (%) (Auto) 7.4 % (9.0-44.0) Neutrophils # (Auto) 13.0 TH/MM3 (1.8-7.7) Monocytes # (Auto) 1.1 TH/MM3 (0-0.9) Blood Urea Nitrogen 65 MG/DL (7-18) 32 MG/DL (7-18) Creatinine 7.87 MG/DL 4.35 MG/DL (0.60-1.30) (0.60-1.30) Estimat Glomerular Filtration 7 ML/MIN (>89) 14 ML/MIN (>89) Rate Random Glucose 115 MG/DL (74-106) Aspartate Amino Transf 8 U/L (15-37) (AST/SGOT) Alanine Aminotransferase 9 U/L (12-78) (ALT/SGPT) Albumin 3.3 GM/DL 3.1 GM/DL (3.4-5.0) (3.4-5.0) PE at Discharge GENERAL: Not in distress. SKIN: Warm and dry. Dialysis catheter in place right chest wall. HEENT: Normocephalic. Pupils equal and round. Mucous membranes mildly dry. CARDIOVASCULAR: Regular rate and rhythm. No murmur appreciated. RESPIRATORY: No accessory muscle use. Clear to auscultation. Breath sounds equal bilaterally. GASTROINTESTINAL: Abdomen soft, non-tender, nondistended. Bowel sounds x4. Ostomy in place in right abdomen with brown semi-formed stools. No epigastric tenderness MUSCULOSKELETAL: No obvious deformities. No clubbing or cyanosis. No edema. NEUROLOGICAL: Awake and alert. No focal neurological deficits. Moves upper and lower extremities spontaneously. Normal speech. PSYCHIATRIC: Appropriate mood and affect; insight and judgment normal. Hospital Course Mr. Cintron is a 56 year-old male presented to the emergency room on 07/24/2016 for evaluation of abdominal pain, nausea, and vomiting. There was a suspicion for a GI bleed with a Hemoccult positive emesis in the emergency department. Hemoglobin remained stable. CT scan of the abdomen was unremarkable. Hemoglobin remained stable, Protonix drip was started and patient was placed on nothing by mouth. GI was consulted, and EGD was done which showed duodenitis in the second portion, esophagitis with Botox injection and hiatal hernia. Since patient's hemoglobin remained stable, diet was advanced and patient was cleared by GI for discharge. For his end-stage renal disease, nephrology was consulted and patient was continued on dialysis as needed. Finally, it was found that patient had leukocytosis with neutrophilia, patient was initially given empiric antibiotics in the ED. Urinalysis and chest x-ray were negative. Blood cultures remained negative. Leukocytosis resolved with volume resuscitation. Antibiotics are stopped. He'll be discharged home to follow-up with GI in a month. Pt Condition on Discharge: Good Discharge Disposition: Discharge Home Discharge Time: <= 30 minutes Discharge Instructions Follow up Referrals: Gastroenterology - 1 Month New Medications: Pantoprazole (Protonix) 40 Mg Tab 40 MG PO BID Ulcer Prevention #60 Ref 0 TAB Bethanechol (Urecholine) 25 Mg Tab 25 MG PO Q8HR PRN pain #60 TAB Continued Medications: Amlodipine (Norvasc) 10 Mg Tab 10 MG PO DAILY Blood Pressure Management #30 Ref 0 TAB Bumetanide (Bumex) 2 Mg Tab 2 MG PO DAILY Ref 0 TAB Buspirone (Buspirone) 10 Mg Tab 10 MG PO BID Anxiety Ref 0 TAB Citalopram (Citalopram) 20 Mg Tab 20 MG PO DAILY Control Depression #30 Ref 0 TAB Enalapril (Enalapril) Unknown Strength Tab Unknown Dose PO DAILY #30 Ref 0 TAB Metoprolol Tartrate (Metoprolol Tartrate) 50 Mg Tab 50 MG PO BID #60 Ref 0 TAB Ondansetron Odt (Zofran Odt) 8 Mg Tab 8 MG SL Q8H PRN NAUSEA OR VOMITING #10 Ref 0 TAB Tramadol (Tramadol) 50 Mg Tab 100 MG PO BID PRN PAIN Ref 0 TAB Discontinued Medications: Aspirin DR (-81) 81 Mg Tabdr 81 MG PO DAILY Pantoprazole (Pantoprazole) 40 Mg Tab 40 MG PO DAILY gastritis #30 Ref 0 TAB Maris Love MD Jul 26, 2016 16:04
== END 2016-07-26 17:55 | disposition home or self-care (01) ==
LOC: NEPC 16:28 → NEDA 18:38 → INTOOBSV 18:38 → NEPHCDU 22:20 → N04B 07-25 17:08
PROVIDERS: ADMIT Hospitalist; ATTEND Hospitalist
DX: K29.50 Unspecified chronic gastritis without bleeding (principal); R59.9 Enlarged lymph nodes, unspecified; K21.0 Gastro-esophageal reflux disease with esophagitis; D64.9 Anemia, unspecified; R11.2 Nausea with vomiting, unspecified; I13.2 Hypertensive heart and chronic kidney disease with heart failure and with stage 5 chronic kidney disease, or end stage renal disease; E11.22 Type 2 diabetes mellitus with diabetic chronic kidney disease; I50.9 Heart failure, unspecified; N18.6 End stage renal disease; D72.829 Elevated white blood cell count, unspecified; E11.43 Type 2 diabetes mellitus with diabetic autonomic (poly)neuropathy; K31.84 Gastroparesis; K22.2 Esophageal obstruction; K44.9 Diaphragmatic hernia without obstruction or gangrene; K29.80 Duodenitis without bleeding; R10.33 Periumbilical pain; I25.2 Old myocardial infarction; E78.00 Pure hypercholesterolemia, unspecified; Z93.3 Colostomy status; Z99.2 Dependence on renal dialysis; Z95.5 Presence of coronary angioplasty implant and graft; Z87.442 Personal history of urinary calculi
CPT/HCPCS: 00740; 43236; 43239; 43248; 71010; 74020; 74176; 80053; 80069; 81001; 83605; 85014; 85018; 85025; 85027; 85610; 85730; 86850; 86900; 86901; 87040; 88305; 88312; 93005; 96365; 96374; 96375; 97163; 99285; C1769; C9113; G0257; G0378; G8987; G8988; J0585; J1580; J1644; J2270; J2405; J2543; J3370; J7030; J7040; J7050; 90935

== ENCOUNTER 2016-07-31 06:14 | Emergency (ER) | payer OTHER, MEDICARE ==
[~2016-07-31] VITALS: Ht 170.2 cm; Wt 63.0 kg
[~2016-07-31 06:14] MED LIST changes: -ASPI81TA81 PO; +BETH25 PO; +BUME1TAB28 PO; -COZA50TA PO; +ENAL5TAB PO; -PANT40TA3 PO; -PROM1SUP8 RECTAL; -PROM25TA5 PO; +PROT40TA PO
[2016-07-31 06:16] VITALS: BP 162/78; PULSE 102; RESP 22; TEMP 97.9; O2SAT 100
[2016-07-31 07:03] VITALS: BP 144/74; PULSE 82; RESP 18; TEMP 98.8; O2SAT 100
--- NOTE | 2016-07-31 07:33 | PD ---
HPI Chief Complaint: Medical Clearance Time Seen by Provider: 07:24 Travel History International Travel<30 days: No Contact w/Intl Traveler<30days: No Traveled to known affect area: No History of Present Illness HPI This patient comes in with some vague symptoms. He says he just doesn't feel well. He says that he was sweating last night. He was discharged from the hospital one week ago. He has not missed any dialysis appointments. He denies any fever. He is not having cough and has colostomy has been functioning normally. No bleeding. Symptoms severity is mild to moderate. No alleviating factors. Duration 2 days. He had trouble sleeping last night. No pain complaints. No chest symptoms. PFSH Past Medical History Hx Anticoagulant Therapy: No Arthritis: No Blood Disorders: No Anxiety: Yes Depression: Yes Heart Rhythm Problems: No Cancer: No Cardiac Catheterization: Yes Cardiovascular Problems: Yes (CHF, HEART ATTACK) High Cholesterol: Yes Chest Pain: Yes Congestive Heart Failure: Yes COPD: No Cerebrovascular Accident: No Diabetes: Yes (TYPE 2) Patient Takes Glucophage: No Dialysis: Yes (RIGHT CHEST VAS CATH) Diminished Hearing: No Endocrine: No Gastrointestinal Disorders: Yes GERD: Yes Genitourinary: Yes Headaches: No Hypertension: Yes Immune Disorder: No Inguinal Hernia: Yes Implanted Vascular Access Dvce: Yes (L FOREARM) Kidney Stones: Yes Musculoskeletal: No Neurologic: Yes (neuropathy) Psychiatric: Yes Reproductive: No Respiratory: Yes ( PNA) Immunizations Current: Yes Migraines: No Myocardial Infarction: Yes (2003) Renal Failure: Yes (CKD, dialysis , , SUN) Seizures: No Thyroid Disease: No Tetanus Vaccination: < 5 Years Influenza Vaccination: No Past Surgical History Abdominal Surgery: Yes (PART OF COLON AND LARGE INTESTINE REMOVED, COLOSTOMY PLACEMENT) Body Medical Devices: Cardiac Stent Cardiac Surgery: Yes (cardiac cath with stent, ) Coronary Stent: Yes Ear Surgery: No Endocrine Surgery: No Eye Surgery: No Genitourinary Surgery: No Gynecologic Surgery: No Oral Surgery: No Thoracic Surgery: No Other Surgery: Yes (LFA fistula, Teeth pulled, colostomy, right leg fem pop) Social History Alcohol Use: No Tobacco Use: Yes (05/08 PPD) Substance Use: No Allergies-Medications (Allergen,Severity, Reaction): Coded Allergies: No Known Allergies (Unverified , 07/31/16) Reported Meds & Prescriptions Reported Meds & Active Scripts Active Urecholine (Bethanechol Chloride) 25 Mg Tab 25 Mg PO Q8HR PRN Protonix (Pantoprazole Sodium) 40 Mg Tab 40 Mg PO BID Zofran Odt (Ondansetron Odt) 8 Mg Tab 8 Mg SL Q8H PRN Reported Bumex (Bumetanide) 2 Mg Tab 2 Mg PO DAILY Enalapril (Enalapril Maleate) Unknown Strength Tab Unknown Dose PO DAILY Tramadol (Tramadol HCl) 50 Mg Tab 100 Mg PO BID PRN Norvasc (Amlodipine Besylate) 10 Mg Tab 10 Mg PO DAILY Buspirone (Buspirone HCl) 10 Mg Tab 10 Mg PO BID Citalopram (Citalopram Hydrobromide) 20 Mg Tab 20 Mg PO DAILY Metoprolol Tartrate 50 Mg Tab 50 Mg PO BID Review of Systems General / Constitutional: No: Fever Eyes: No: Visual changes HENT: No: Headaches Cardiovascular: Positive: Diaphoresis, No: Chest Pain or Discomfort Respiratory: No: Shortness of Breath Gastrointestinal: No: Abdominal Pain Genitourinary: No: Dysuria Musculoskeletal: No: Pain Skin: No Rash Neurologic: No: Weakness Psychiatric: No: Depression Endocrine: No: Polydipsia Hematologic/Lymphatic: No: Easy Bruising Physical Exam Narrative GENERAL: Well-nourished, well-developed patient in no apparent distress. SKIN: Warm and dry. HEAD: Atraumatic. Normocephalic. EYES: Pupils equal and round. No scleral icterus. No injection or drainage. ENT: No nasal bleeding or discharge. Mucous membranes pink and moist. NECK: Trachea midline. No JVD. CARDIOVASCULAR: Regular rate and rhythm. No murmur appreciated. RESPIRATORY: No accessory muscle use. Clear to auscultation. Breath sounds equal bilaterally. GASTROINTESTINAL: Abdomen soft, non-tender, nondistended. Hepatic and splenic margins not palpable. Colostomy in the right lower quadrant with brown liquid stool MUSCULOSKELETAL: No obvious deformities. No clubbing. No cyanosis. No edema. NEUROLOGICAL: Awake and alert. No obvious cranial nerve deficits. Motor grossly within normal limits. Normal speech. PSYCHIATRIC: Appropriate mood and affect; insight and judgment normal. Data Data Last Documented VS Vital Signs Date Time Temp Pulse Resp B/P Pulse Ox O2 Delivery O2 Flow Rate FiO2 07/31/16 10:51 87 19 157/83 100 Room Air 07/31/16 10:30 97.6 Orders Iv Access Insert/Monitor (07/31/16 07:25) Complete Blood Count With Diff (07/31/16 07:25) Basic Metabolic Panel (Bmp) (07/31/16 07:25) Chest, Single Ap (07/31/16 ) Blood Culture (07/31/16 10:26) Labs Laboratory Tests Test 07/31/16 07:45 White Blood Count 16.4 TH/MM3 Red Blood Count 4.23 MIL/MM3 Hemoglobin 12.0 GM/DL Hematocrit 36.8 % Mean Corpuscular Volume 87.1 FL Mean Corpuscular Hemoglobin 28.3 PG Mean Corpuscular Hemoglobin 32.5 % Concent Red Cell Distribution Width 13.6 % Platelet Count 219 TH/MM3 Mean Platelet Volume 10.5 FL Neutrophils (%) (Auto) 80.5 % Lymphocytes (%) (Auto) 12.3 % Monocytes (%) (Auto) 5.6 % Eosinophils (%) (Auto) 1.1 % Basophils (%) (Auto) 0.5 % Neutrophils # (Auto) 13.2 TH/MM3 Lymphocytes # (Auto) 2.0 TH/MM3 Monocytes # (Auto) 0.9 TH/MM3 Eosinophils # (Auto) 0.2 TH/MM3 Basophils # (Auto) 0.1 TH/MM3 CBC Comment DIFF FINAL Differential Comment Sodium Level 141 MEQ/L Potassium Level 4.2 MEQ/L Chloride Level 106 MEQ/L Carbon Dioxide Level 22.8 MEQ/L Anion Gap 12 MEQ/L Blood Urea Nitrogen 23 MG/DL Creatinine 4.97 MG/DL Estimat Glomerular Filtration 12 ML/MIN Rate Random Glucose 178 MG/DL Calcium Level 8.5 MG/DL [facility] Medical Decision Making Medical Screen Exam Complete: Yes Emergency Medical Condition: Yes Medical Record Reviewed: Yes Differential Diagnosis Flu Syndrome, URI, vague malaise Narrative Course I have reviewed the patient's electronic medical record. Reviewed his discharge summary from 7 days ago here IV placed CBC shows some mild nonspecific leukocytosis Metabolic profile shows renal insufficiency as expected for this dialysis patient Etiology of his vague symptoms is unclear. He has normal vital signs and benign exam. He just had extensive workup 7 days ago. I reviewed his chest x-ray which is normal His urine was just checked a few days ago and clean He only urinates very scant amounts given his dialysis Abdomen is soft and benign and nontender No meningeal signs His right upper chest Vas-Cath shows no sign of infection around it Blood culture was obtained and he is stable for outpatient follow-up with primary care and will dialyze tomorrow. Diagnosis Primary Impression: Malaise Additional Impressions: Chills (without fever) CKD (chronic kidney disease) stage 4, GFR 15-29 ml/min Additional Instructions: The patient was advised to follow up with their physician and return if they worsen. Med/Other Pt SpecificInfo: Other Disposition: 01 DISCHARGE HOME Condition: Stable Timmy Curry MD Jul 31, 2016 07:33
[2016-07-31 08:08] LABS: AUTOMATED NEUTROPHIL # 13.2 TH/MM3 (1.8-7.7); BASOPHIL # 0.1 TH/MM3 (0-0.2); BASOPHIL % 0.5 % (0.0-2.0); EOSINOPHIL # 0.2 TH/MM3 (0-0.4); EOSINOPHIL % 1.1 % (0.0-4.0); HEMATOCRIT 36.8 % (39.0-51.0); HEMO FLAGS DIFF FINAL; LYMPH % 12.3 % (9.0-44.0); MEAN CELL VOLUME 87.1 FL (80.0-100.0); MEAN CORPUSCULAR HEMOGLOBIN 28.3 PG (27.0-34.0); MEAN CORPUSCULAR HGB CONC 32.5 % (32.0-36.0); MONO % 5.6 % (0.0-8.0); NEUT % 80.5 % (16.0-70.0); PLATELET COUNT 219 TH/MM3 (150-450); RED BLOOD COUNT 4.23 MIL/MM3 (4.50-5.90); RED CELL DISTRIBUTION WIDTH 13.6 % (11.6-17.2); WHITE BLOOD COUNT 16.4 TH/MM3 (4.0-11.0)
[2016-07-31 08:22] LABS: BICARBONATE 22.8 MEQ/L (21.0-32.0); POTASSIUM 4.2 MEQ/L (3.5-5.1)
[2016-07-31 10:30] VITALS: BP 170/84; PULSE 90; RESP 16; TEMP 97.6; O2SAT 100
--- NOTE | 2016-07-31 10:43 | RADRPT ---
EXAM DATE/TIME: 07/31/2016 10:27 [facility] COMPARISON: CHEST SINGLE AP, July 24, 2016, 17:43. INDICATIONS : Fever. MEDICAL HISTORY : Congestive heart failure. Hypercholesterolemia. Myocardial infarction. SURGICAL HISTORY : Coronary artery stent. Left arm AV fistula. Right big toe amputation. ENCOUNTER: Subsequent ACUITY: 4 - 6 days PAIN SCORE: 0/10 LOCATION: Bilateral chest FINDINGS: A single view of the chest demonstrates the lungs to be symmetrically aerated without evidence of mas s, infiltrate or effusion. The cardiomediastinal contours are unremarkable. Dialysis catheter in go od position. Osseous structures are intact. CONCLUSION: No acute disease. Aubrey Matson MD FACR on July 31, 2016 at 10:41 Board Certified Radiologist. This report was verified electronically.
[2016-07-31 10:51] VITALS: BP 157/83; PULSE 87; RESP 19; O2SAT 100
== END 2016-07-31 12:01 | disposition home or self-care (01) ==
LOC: NEPC 06:14
DX: R53.81 Other malaise (principal); R68.83 Chills (without fever); N18.4 Chronic kidney disease, stage 4 (severe); E11.22 Type 2 diabetes mellitus with diabetic chronic kidney disease; I12.9 Hypertensive chronic kidney disease with stage 1 through stage 4 chronic kidney disease, or unspecified chronic kidney disease; F17.210 Nicotine dependence, cigarettes, uncomplicated
CPT/HCPCS: 71010; 80048; 85025; 87040; 99283

== ENCOUNTER 2016-08-01 20:06 | Inpatient (IN) | payer OTHER, MEDICARE ==
[~2016-08-01] VITALS: Ht 170.2 cm; Wt 64.4 kg
[2016-08-01 20:09] VITALS: BP 150/88; PULSE 140; RESP 20; TEMP 98.8; O2SAT 99
[2016-08-01] MEDS ORDERED: ONDANSETRON HCL 4 MG/2 ML VIAL IV ONE (20:45)
[2016-08-01] MEDS ORDERED: SODIUM CHLOR 0.9% 250 ML INJ 250 ML IV ONE (20:45)
[2016-08-01] MEDS ORDERED: MORPHINE SULFATE 4 MG/ML INJ IV PUSH ONE (21:00)
--- NOTE | 2016-08-01 21:15 | PD ---
HPI Chief Complaint: GI Complaint Time Seen by Provider: 20:31 Travel History International Travel<30 days: No Contact w/Intl Traveler<30days: No Traveled to known affect area: No History of Present Illness HPI The patient is a 56 year old male who presents to the [facility] emergency department with a history of chills, intermittent sweats, and diaphoresis that began on Sunday after he had an upper endoscopy done with biopsies and Botox injections for evaluation for upper abdominal pain and a history of gastroparesis. The patient reports that initially he has nausea had improved, however today the nausea and vomiting recurred. He reports that he has been taking Zofran without relief. He reports that he normally takes tramadol for chronic neuropathic pain in his feet and hands, however he has not been able to keep it down today. He reports that he said nausea and vomiting 5-6 times today. He reports that since the procedure and Wednesdays also had diarrhea. He denies having any blood in his stool. The patient reports that he has had so much loose stool that he actually blew out his colostomy bag. The patient reports that he has a colostomy related to gangrenous bowel last year in 2016. He reports that he also has a history of being on renal dialysis since then. The patient has a Vas-Cath in place in the right upper chest. The patient reports that he was supposed to have dialysis this morning, however he felt so bad that he was not able to attend. His last dialysis session was on Sunday. He reports having some shortness of breath with exertion. He denies having any chest pain. He denies having any abdominal pain. He reports that he does produce a small amount of urine daily. The patient denies any fevers, cough, congestion, neck pain, urinary symptoms, or new neurologic symptoms. 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, history of gastritis Hx Anticoagulant Therapy: No Arthritis: No Blood Disorders: No Anxiety: Yes Depression: Yes Heart Rhythm Problems: No Cancer: No Cardiac Catheterization: Yes Cardiovascular Problems: Yes (CHF, HEART ATTACK) High Cholesterol: Yes Chest Pain: Yes Congestive Heart Failure: Yes COPD: No Cerebrovascular Accident: No Diabetes: No (NO LONGER W/ DIALYSIS) Dialysis: Yes (RIGHT CHEST VAS CATH) Diminished Hearing: No Endocrine: No Gastrointestinal Disorders: Yes GERD: Yes Genitourinary: Yes Headaches: No Hypertension: Yes Immune Disorder: No Inguinal Hernia: Yes Implanted Vascular Access Dvce: Yes (L FOREARM) Kidney Stones: Yes Musculoskeletal: No Neurologic: Yes (neuropathy) Psychiatric: Yes Reproductive: No Respiratory: Yes ( PNA) Immunizations Current: Yes Migraines: No Myocardial Infarction: Yes (2003) Renal Failure: Yes (CKD, dialysis , , SUN) Seizures: No Thyroid Disease: No Past Surgical History Narrative Surgical The patient's past surgical history is significant for a partial colectomy with colostomy placement in 2016 related to gangrenous bowel, history of left forearm fistula placement, dental extractions, right leg femoropopliteal procedure, history of cardiac catheterization with a single stent placement approximately 10-12 years ago, history of Vas-Cath placement in the right upper chest through which she is receiving dialysis. Abdominal Surgery: Yes (PART OF COLON AND LARGE INTESTINE REMOVED, COLOSTOMY PLACEMENT) Body Medical Devices: Cardiac Stent Cardiac Surgery: Yes (cardiac cath with stent, ) Coronary Stent: Yes Ear Surgery: No Endocrine Surgery: No Eye Surgery: No Genitourinary Surgery: No Gynecologic Surgery: No Oral Surgery: No Thoracic Surgery: No Other Surgery: Yes (LFA fistula, Teeth pulled, colostomy, right leg fem pop) Social History Alcohol Use: No Tobacco Use: Yes (2 PPD) Substance Use: No Allergies-Medications (Allergen,Severity, Reaction): Coded Allergies: No Known Allergies (Unverified , 08/01/16) Reported Meds & Prescriptions Reported Meds & Active Scripts Active Urecholine (Bethanechol Chloride) 25 Mg Tab 25 Mg PO Q8HR PRN Protonix (Pantoprazole Sodium) 40 Mg Tab 40 Mg PO BID Zofran Odt (Ondansetron Odt) 8 Mg Tab 8 Mg SL Q8H PRN Reported Bumex (Bumetanide) 2 Mg Tab 2 Mg PO DAILY Enalapril (Enalapril Maleate) Unknown Strength Tab Unknown Dose PO DAILY Tramadol (Tramadol HCl) 50 Mg Tab 100 Mg PO BID PRN Norvasc (Amlodipine Besylate) 10 Mg Tab 10 Mg PO DAILY Buspirone (Buspirone HCl) 10 Mg Tab 10 Mg PO BID Citalopram (Citalopram Hydrobromide) 20 Mg Tab 20 Mg PO DAILY Metoprolol Tartrate 50 Mg Tab 50 Mg PO BID Review of Systems Except as stated in HPI: all other systems reviewed are Neg General / Constitutional: No: Fever Eyes: No: Visual changes HENT: No: Headaches Cardiovascular: Positive: Diaphoresis, Dyspnea on exertion, No: Chest Pain or Discomfort Respiratory: Positive: Shortness of Breath, No: Cough Gastrointestinal: Positive: Nausea, Vomiting, Diarrhea, Changes in Bowel Habits , Loss of Appetite, No: Abdominal Pain, Hematemesis, Hematochezia, Constipation , Indigestion Genitourinary: No: Dysuria, Flank Pain Musculoskeletal: No: Pain Skin: No Rash Neurologic: Positive: Weakness (generalized weakness), Tremor, No: Focal Abnormalities, Change in Mentation, Slurred Speech, Sensory Disturbance Psychiatric: No: Depression Endocrine: No: Polydipsia Hematologic/Lymphatic: No: Easy Bruising Physical Exam Narrative General: The patient is well-developed well-nourished male, diaphoretic on my arrival to the room, tremulous on exam. Head and Neck exam: Head is normocephalic atraumatic. Eyes: EOMI, pupils are equal round and reactive to light. Nose: Midline septum with pink mucous membranes Mouth: Dentition unremarkable. Moist mucus membranes. Posterior oropharynx is not erythematous. No tonsillar hypertrophy. Uvula midline. Airway patent. Neck: No palpable lymphadenopathy. No nuchal rigidity. No thyromegaly. Cardiovascular: Sinus tachycardia with a rate in the 120s without murmurs, gallops, or rubs. No pulse deficit to the extremities on simultaneous auscultation and palpation of his radial artery. Lungs: Clear to auscultation bilaterally. No wheezes, rhonchi, or rales. Abdomen: Soft, without tenderness to palpation in all 4 quadrants of the abdomen. No guarding, rebound, or rigidity. Normal bowel sounds are audible. No tenderness on palpation of McBurney's point, negative Monsalve's sign. Patient has a colostomy bag in place in the right lower quadrant of the abdomen that appears to be an elbow repair and has evidence of leakage. Extremities: No clubbing, cyanosis, or edema. 2+ pulses in all 4 extremities. No calf tenderness on palpation. Back: No costovertebral angle tenderness to palpation. Neurologic Exam: Cranial nerves 2-12 were intact on exam. Strength is 5/5 in all 4 extremities. No sensory deficits noted. Skin Exam: No rash noted. Intact skin that is warm and slightly diaphoretic over the forehead. Data Data Last Documented VS Vital Signs Date Time Temp Pulse Resp B/P Pulse Ox O2 Delivery O2 Flow Rate FiO2 08/01/16 21:33 118 16 163/87 100 Room Air 08/01/16 20:09 98.8 Orders Electrocardiogram (08/01/16 ) Complete Blood Count With Diff (08/01/16 20:31) Comprehensive Metabolic Panel (08/01/16 20:31) Creatine Kinase (Cpk) (08/01/16 20:31) Ckmb (Isoenzyme) Profile (08/01/16 20:31) Troponin I (08/01/16 20:31) B-Type Natriuretic Peptide (08/01/16 20:31) Prothrombin Time / Inr (Pt) (08/01/16 20:31) Act Partial Throm Time (Ptt) (08/01/16 20:31) Blood Culture (08/01/16 20:31) C-Reactive Protein (Crp) (08/01/16 20:31) Lipase (08/01/16 20:31) Magnesium (Mg) (08/01/16 20:31) Chest, Single Ap (08/01/16 20:31) Iv Access Insert/Monitor (08/01/16 20:31) Ecg Monitoring (08/01/16 20:31) Oximetry (08/01/16 20:31) Lactic Acid Sepsis Protocol (08/01/16 20:31) Ondansetron Inj (Zofran Inj) (08/01/16 20:45) Sodium Chlor 0.9% 250 Ml Inj (Ns 250 Ml (08/01/16 20:45) Morphine Inj (Morphine Inj) (08/01/16 21:00) CKMB (08/01/16 21:00) CKMB% (08/01/16 21:00) Piperacil-Tazo 3.375 Gm Premix (Zosyn 3. (08/01/16 22:15) Vancomycin Inj (Vancomycin Inj) (08/01/16 22:15) Sodium Polysty Sulfate Liq (Kayexalate L (08/01/16 22:15) Sodium Chlorid 0.9% 500 Ml Inj (Ns 500 M (08/01/16 22:15) Ct Abd/Pel W/O Iv Contrast (08/01/16 22:25) Admit Order (Ed Use Only) (08/01/16 22:25) Labs Laboratory Tests Test 08/01/16 21:00 White Blood Count 23.5 TH/MM3 Red Blood Count 4.56 MIL/MM3 Hemoglobin 13.2 GM/DL Hematocrit 39.8 % Mean Corpuscular Volume 87.3 FL Mean Corpuscular Hemoglobin 29.0 PG Mean Corpuscular Hemoglobin 33.3 % Concent Red Cell Distribution Width 14.0 % Platelet Count 325 TH/MM3 Mean Platelet Volume 10.6 FL Neutrophils (%) (Auto) 89.9 % Lymphocytes (%) (Auto) 5.4 % Monocytes (%) (Auto) 4.1 % Eosinophils (%) (Auto) 0.4 % Basophils (%) (Auto) 0.2 % Neutrophils # (Auto) 21.1 TH/MM3 Lymphocytes # (Auto) 1.3 TH/MM3 Monocytes # (Auto) 1.0 TH/MM3 Eosinophils # (Auto) 0.1 TH/MM3 Basophils # (Auto) 0.1 TH/MM3 CBC Comment AUTO DIFF Differential Comment AUTO DIFF CONFIRMED Platelet Estimate NORMAL Platelet Morphology Comment NORMAL Red Cell Morphology Comment NORMAL Prothrombin Time 10.7 SEC Prothromb Time International 1.0 RATIO Ratio Activated Partial 24.9 SEC Thromboplast Time Sodium Level 145 MEQ/L Potassium Level 5.8 MEQ/L Chloride Level 108 MEQ/L Carbon Dioxide Level 20.3 MEQ/L Anion Gap 17 MEQ/L Blood Urea Nitrogen 38 MG/DL Creatinine 6.94 MG/DL Estimat Glomerular Filtration 8 ML/MIN Rate Random Glucose 168 MG/DL Lactic Acid Level 6.1 mmol/L Calcium Level 9.6 MG/DL Magnesium Level 2.2 MG/DL Total Bilirubin 0.4 MG/DL Aspartate Amino Transf 31 U/L (AST/SGOT) Alanine Aminotransferase 15 U/L (ALT/SGPT) Alkaline Phosphatase 81 U/L Total Creatine Kinase 125 U/L Creatine Kinase MB 2.3 NG/ML Troponin I LESS THAN 0.02 NG/ML C-Reactive Protein 1.20 MG/DL B-Type Natriuretic Peptide 565 PG/ML Total Protein 8.1 GM/DL Albumin 3.7 GM/DL Lipase 135 U/L [facility] Medical Decision Making Medical Screen Exam Complete: Yes Emergency Medical Condition: Yes Medical Record Reviewed: Yes Interpretation(s) Last Impressions Abdomen/Pelvis CT 08/01/162224 Signed Impressions: Service Date/Time: Monday, August 01, 2016 22:50 - CONCLUSION: 1. Left-sided inguinal hernia containing a loop of small bowel and fluid in the left inguinal canal. However no evidence for small bowel obstruction. 2. Right-sided colostomy. 3. Renal cortical atrophy with stable renal calcifications and exophytic cysts. 4. Hiatal hernia. Eduardo Cano MD Chest X-Ray 08/01/162030 Signed Impressions: Service Date/Time: Monday, August 01, 2016 20:57 - CONCLUSION: 1. No acute cardiopulmonary disease. Samuel Ward MD Differential Diagnosis Sepsis related to an infected line, versus pneumonia, versus urinary tract infection, versus C. difficile colitis, versus gastroenteritis, versus dehydration Narrative Course During the course of the patients emergency department visit, the patients history, examination, and differential diagnosis were reviewed with the patient. The patient had IV access obtained and blood work sent for analysis. The patient was placed on a property assessment monitor with oximetry and blood pressure monitoring. The patient had an EKG done on arrival reveals a sinus tachycardia rate of 127, no acute ST segment elevation, wavy baseline is noted related to tremulousness. The patient was provided Zofran 4 mg IV, normal saline at 250 mL IV fluid bolus to judiciously rehydrated him given his history of being on hemodialysis with renal failure and having missed his dialysis session today. The patient was given morphine 2 mg IV 1 for pain. The patient on reexamination was feeling improved. The patient's diaphoresis had resolved. The patients laboratory studies were reviewed and remarkable for a white count of 23.5, hemoglobin 13.2, platelets 325 with 89.9 neutrophils, lymphocytes 5.4. CMP is remarkable for potassium of 5.8, the patient was treated with Kayexalate by mouth. CO2 20.3, BUN 38, creatinine 6.94, glucose 168, initial set of cardiac enzymes are within normal limits, C-reactive protein 1.20, lipase 135, BNP 565, PT PTT within normal limits. Given the patient's elevated white blood cell count, the patient was given Zosyn 3.375 g IV, vancomycin 1 g IV. The patient was started on another fluid bolus of 500 mL 1 as he seemed to tolerate the first one well and had no evidence of fluid overload on repeat lung exam. Repeat lactic acid after judicious hydration with IV fluids was down to 1.6. Radiology studies were reviewed and remarkable for a chest x-ray that showed no acute abnormality. CT scan of the abdomen and pelvis showed a left-sided inguinal hernia containing a loop of small bowel in fluid in the left inguinal canal, however no evidence for small bowel obstruction, right-sided colostomy is noted, renal cortical atrophy was stable renal calcifications and exophytic cyst, hiatal hernia. The patients results were discussed with the patient, including the plan of care. I explained that further testing and/ or monitoring is indicated based on the patients history, examination, and/ or laboratory findings. Therefore, I recommended admission for additional evaluation. The patient expressed understanding and was agreeable with this plan. The patient was admitted to the hospital in guarded condition and sent to a bed under the care of the [facility] service. Critical Care Narrative Aggregate critical care time was [-] minutes. Time to perform other separately billable procedures was not included in the critical care time. My time did not include minutes spent treating any other patients simultaneously or on activities that did not directly contribute to the patient's treatment. The services I provided to this patient were to treat and/or prevent clinically significant deterioration that could result in: [-] I provided critical care services requiring my management, as noted below: Chart data review, documentation time, medication orders and management, vital sign assessments/reviewing monitor data, ordering and reviewing lab tests, ordering and interpreting/reviewing x-rays and diagnostic studies, care of the patient and discussion of the patient with the admitting physicians. Sepsis Criteria SIRS Criteria (2 or more): Heart rate over 90, WBC > 60142, < 4000 or > 10% bands Severe Sepsis (+one): Lactate >2 Septic Shock Criteria: Lactic acid >=4 Physician Communication Physician Communication The patient's case is discussed with Dr. Jacinto who did agree to admit the patient for further evaluation and treatment at this time. Diagnosis Primary Impression: Abdominal pain Qualified Code: R10.84 - Generalized abdominal pain Additional Impressions: Nausea & vomiting Qualified Code: R11.2 - Non-intractable vomiting with nausea, unspecified vomiting type Dehydration SIRS (systemic inflammatory response syndrome) Ruby Mix MD Aug 01, 2016 21:15
[2016-08-01 21:17] LABS: AUTOMATED NEUTROPHIL # 21.1 TH/MM3 (1.8-7.7); BASOPHIL # 0.1 TH/MM3 (0-0.2); BASOPHIL % 0.2 % (0.0-2.0); EOSINOPHIL # 0.1 TH/MM3 (0-0.4); EOSINOPHIL % 0.4 % (0.0-4.0); HEMATOCRIT 39.8 % (39.0-51.0); LYMPH % 5.4 % (9.0-44.0); LYMPHOCYTE # 1.3 TH/MM3 (1.0-4.8); MEAN CELL VOLUME 87.3 FL (80.0-100.0); MEAN CORPUSCULAR HGB CONC 33.3 % (32.0-36.0); MONO % 4.1 % (0.0-8.0); NEUT % 89.9 % (16.0-70.0); PLATELET COUNT 325 TH/MM3 (150-450); RED BLOOD COUNT 4.56 MIL/MM3 (4.50-5.90); WHITE BLOOD COUNT 23.5 TH/MM3 (4.0-11.0)
[2016-08-01 21:18] LABS: HEMO FLAGS AUTO DIFF
[2016-08-01 21:29] LABS: APTT (PATIENT) 24.9 SEC (24.3-30.1); PROTHROMBIN TIME - PATIENT 10.7 SEC (9.8-11.6)
--- NOTE | 2016-08-01 21:31 | RADRPT ---
EXAM DATE/TIME: 08/01/2016 20:57 [facility] COMPARISON: CHEST SINGLE AP, July 31, 2016, 10:27. INDICATIONS : Cough. MEDICAL HISTORY : Hypercholesterolemia. Congestive heart failure. Myocardial infarction. CAD SURGICAL HISTORY : Coronary artery stent. Left arm AV fistula. Right big toe amputation ENCOUNTER: Initial ACUITY: 1 day PAIN SCORE: 4/10 LOCATION: Bilateral chest FINDINGS: The right internal jugular tunneled dialysis catheter is again noted and has its tip in the right atr ium. There is no pneumothorax. The heart and mediastinal structures are normal. The pulmonary vasc ular pattern is normal. The lungs are clear. CONCLUSION: 1. No acute cardiopulmonary disease. Samuel Ward MD on August 01, 2016 at 21:27 Board Certified Radiologist. This report was verified electronically.
[2016-08-01 21:33] VITALS: BP 163/87; PULSE 118; RESP 16; O2SAT 100
[2016-08-01 21:40] LABS: ALKALINE PHOSPHATASE 81 U/L (45-117); ALT (GPT) 15 U/L (12-78); ANION GAP 17 MEQ/L (5-15); AST (GOT) 31 U/L (15-37); BICARBONATE 20.3 MEQ/L (21.0-32.0); BLOOD UREA NITROGEN 38 MG/DL (7-18); CHLORIDE 108 MEQ/L (98-107); CREATINE KINASE 125 U/L (39-308); GLOMERULAR FILTRATION RATE 8 ML/MIN (>89); MAGNESIUM 2.2 MG/DL (1.5-2.5); POTASSIUM 5.8 MEQ/L (3.5-5.1); SODIUM (NA) 145 MEQ/L (136-145); TOTAL BILIRUBIN ADULT 0.4 MG/DL (0.2-1.0)
[2016-08-01 21:51] LABS: PLATELET ESTIMATE SMEAR NORMAL (NORMAL); PLATELET MORPHOLOGY NORMAL (NORMAL); SCAN/DIFF AUTO DIFF CONFIRMED
[2016-08-01 21:54] LABS: CKMB 2.3 NG/ML (0.5-3.6)
[2016-08-01] MEDS ORDERED: SODIUM CHLORID 0.9% 500 ML INJ 500 ML IV ONE (22:15)
[2016-08-01] MEDS ORDERED: PIPERACIL-TAZO 3.375 GM PREMIX 50 ML IV ONE (22:15)
[2016-08-01] MEDS ORDERED: SODIUM POLYSTYRENE SULFONATE SUSP 15 GM/60 ML CUP PO ONE (22:15)
[2016-08-01] MEDS ORDERED: VANCOMYCIN INJ 1,000 MG in SODIUM CHLOR 0.9% 250 ML INJ 250 ML IV ONE (22:15)
--- NOTE | 2016-08-01 22:19 | EKG ---
Date Performed: 08/01/2016 Time Performed: 20:22:48 PTAGE: 56 years EKG: SINUS TACHYCARDIA NONSPECIFIC ST & T-WAVE ABNORMALITY ABNORMAL RHYTHM ECG PREVIOUS TRACING : 07/24/2016 17.21 DOCTOR: Zaida Johnson Interpretating Date/Time 08/01/2016 22:17:28
[2016-08-01] MEDS ORDERED: MAGNESIUM HYDROXIDE SUSP 30 ML CUP PO PRN (22:45)
[2016-08-01] MEDS ORDERED: NALOXONE HCL 0.4 MG/ML AMP IV PRN (22:45)
[2016-08-01] MEDS ORDERED: Vancomycin Consult Pharmacy 1 EA OTHER SCH (22:45)
[2016-08-01] MEDS ORDERED: ACETAMINOPHEN 325 MG TAB PO PRN (22:45)
[2016-08-01] MEDS ORDERED: GLUCAGON 1 MG/ML VIAL OTHER PRN (22:45)
[2016-08-01] MEDS ORDERED: DEXTROSE 50% IN WATER 50 ML VIAL(D50) IV PUSH PRN (22:45)
[2016-08-01] MEDS ORDERED: SODIUM CHLORIDE 0.9% FLUSH 10 ML FLUSH IV FLUSH PRN (22:45)
[2016-08-01 23:00] VITALS: BP 153/85; PULSE 102; RESP 16; O2SAT 98
[2016-08-01] MEDS ORDERED: THIAMINE INJ 100 MG in SODIUM CHLORIDE 0.9% INJ 100 ML IV ONE (23:00)
[2016-08-01] MEDS ORDERED: LEVOFLOXACIN 750 MG PREMIX INJ 150 ML IV ONE (23:00)
[2016-08-01] MEDS ORDERED: LEVOFLOXACIN 500 MG PREMIX INJ 100 ML IV SCH (23:00)
[2016-08-01 23:08] LABS: LACTIC ACID GHOST NOT REPORTABLE
--- NOTE | 2016-08-01 23:45 | RADRPT ---
EXAM DATE/TIME: 08/01/2016 22:50 [place] COMPARISON: No previous studies available for comparison. INDICATIONS : Nausea and vomiting for five days ORAL CONTRAST: No oral contrast ingested. RADIATION DOSE: 10.43 CTDIvol (mGy) MEDICAL HISTORY : Renal failure, chronic. Hypertension. Congestive heart failure.renal stones. SURGICAL HISTORY : Colostomy. ENCOUNTER: Initial ACUITY: 4 - 6 days PAIN SCALE: 4/10 LOCATION: Bilateral abdomen TECHNIQUE: Volumetric scanning of the abdomen and pelvis was performed. Using automated exposure control and ad justment of the mA and/or kV according to patient size, radiation dose was kept as low as reasonably achievable to obtain optimal diagnostic quality images. FINDINGS: Lung bases are clear. No acute findings in the liver, spleen, adrenals or pancreas. Both kidneys are atrophic with exophyti c cysts and bilateral renal calcifications similar to July 24 and June 02 exam. Calcification rem ains in the left renal pelvis without hydronephrosis. No calcified gallstones or biliary ductal dilat ation. There is a colostomy on the right. There is a left-sided inguinal hernia containing a small loop of s mall bowel. There is also some fluid in the left inguinal canal. However no small bowel obstruction. CONCLUSION: 1. Left-sided inguinal hernia containing a loop of small bowel and fluid in the left inguinal canal. However no evidence for small bowel obstruction. 2. Right-sided colostomy. 3. Renal cortical atrophy with stable renal calcifications and exophytic cysts. 4. Hiatal hernia. Eduardo Cano MD on August 01, 2016 at 23:33 Board Certified Radiologist. This report was verified electronically.
[2016-08-01] MEDS: HEPARIN SODIUM - SQ 10,000 UNITS/ML VIAL SQ SCH (23:56)
[2016-08-02] VITALS (14 sets, daily range): BP systolic 150–178; BP diastolic 75–91; PULSE 64–124; RESP 12–20; TEMP 97.2–98.9; O2SAT 98–100
[2016-08-02] MEDS ORDERED: ASPIRIN EC 81 MG TABEC PO ONE (03:15)
[2016-08-02] MEDS ORDERED: PANTOPRAZOLE SODIUM 40 MG VIAL IV PUSH SCH (03:15)
[2016-08-02] MEDS ORDERED: Vancomycin Consult Pharmacy 1 EA OTHER SCH (03:15)
[2016-08-02] MEDS ORDERED: PANTOPRAZOLE SODIUM 40 MG VIAL IV PUSH ONE (03:15)
[2016-08-02] MEDS ORDERED: BETHANECHOL CHL 25 MG TAB PO PRN (03:15)
--- NOTE | 2016-08-02 03:29 | HHI.HP ---
[facility] Admission Diagnosis Sepsis of undetermined origin, dehydration, vomiting Diagnoses: Chief Complaint: Nausea, vomiting, sweating, shaking. Travel History International Travel<30 Days: No Contact w/Intl Traveler <30 Da: No Traveled to Known Affected Are: No History of Present Illness 48-year-old male with history of end-stage renal disease on hemodialysis, hypertension, diabetes mellitus, gastroparesis, who presents with three-day history of diaphoresis, malaise. He also reports constant, sharp, nonradiating epigastric pain. He woke up this morning with acute onset nausea and vomiting of nonbloody emesis. He also reports profuse output from his colostomy, with nonbloody diarrhea. Patient denies any dysuria, hematuria. Denies any chest pain, denies shortness of breath, however does say that he is having significant difficulty catching his breath. History is somewhat limited secondary to tachypnea Recent admission from for abdominal pain, nausea, vomiting. Emesis was somehow tested for stool Hemoccult, and positive. EGD showed duodenitis, patient underwent Botox injections with pyloric canal for treatment of gastroparesis. Aspirin was discontinued at that time. 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 Review of Systems Performed and negative except for history of present illness and past medical history. Past Family Social History Past Medical History hypertension NV 2004 CAD s/p stent x 1 CHF diabetes mellitus Gangrenous colon with resection, colostomy. Gastroparesis. Past Surgical History Colostomy Right big toe amputated Right leg fem-pop bypass Stent - cardiac x 1 Vascular catheter placed right upper chest Pyloric sphincter injections 07/26/16 Reported Medications Reported Meds & Active Scripts Active Urecholine (Bethanechol Chloride) 25 Mg Tab 25 Mg PO Q8HR PRN Protonix (Pantoprazole Sodium) 40 Mg Tab 40 Mg PO BID Zofran Odt (Ondansetron Odt) 8 Mg Tab 8 Mg SL Q8H PRN Reported Bumex (Bumetanide) 2 Mg Tab 2 Mg PO DAILY Enalapril (Enalapril Maleate) Unknown Strength Tab Unknown Dose PO DAILY Tramadol (Tramadol HCl) 50 Mg Tab 100 Mg PO BID PRN Norvasc (Amlodipine Besylate) 10 Mg Tab 10 Mg PO DAILY Buspirone (Buspirone HCl) 10 Mg Tab 10 Mg PO BID Citalopram (Citalopram Hydrobromide) 20 Mg Tab 20 Mg PO DAILY Metoprolol Tartrate 50 Mg Tab 50 Mg PO BID Allergies: Coded Allergies: No Known Allergies (Unverified , 08/01/16) Family History Mother with leukemia Brother with brain aneurysm Father from injuries sustained in a motor vehicle collision . Social History Patient smokes one half pack per day for 40 years Denies drinking. Denies any illicit drugs. Physical Exam Vital Signs Vital Signs Date Time Temp Pulse Resp B/P Pulse Ox O2 Delivery O2 Flow Rate FiO2 08/02/16 02:42 98.5 124 20 170/91 100 08/02/16 01:00 98.9 105 16 170/89 98 Room Air 08/02/16 00:00 99 16 158/91 100 Room Air 08/01/16 23:00 102 16 153/85 98 Room Air 08/01/16 21:33 118 16 163/87 100 Room Air 08/01/16 20:09 98.8 140 20 150/88 99 Physical Exam GENERAL: Thin 56-year-old male lying in bed. Appears short of breath. He is oriented 3. SKIN: No rashes, ecchymoses or lesions. Cool and dry. HEAD: Atraumatic. Normocephalic. No temporal or scalp tenderness. EYES: Pupils equal round and reactive. Extraocular motions intact. No scleral icterus. No injection or drainage. ENT: Nose without bleeding, purulent drainage or septal hematoma. Throat without erythema, tonsillar hypertrophy or exudate. Uvula midline. Airway patent. NECK: Trachea midline. No JVD or lymphadenopathy. Supple, nontender, no meningeal signs. CARDIOVASCULAR: Regular rate and rhythm without murmurs, gallops, or rubs. RESPIRATORY: Clear to auscultation. Breath sounds equal bilaterally. No wheezes , rales, or rhonchi. GASTROINTESTINAL: Abdomen soft. Epigastric tenderness. No rebound or guarding. Colostomy with brown stool. MUSCULOSKELETAL: Extremities without clubbing, cyanosis, or edema. No joint tenderness, effusion, or edema noted. No calf tenderness. Negative Homans sign bilaterally. NEUROLOGICAL: Awake and alert. Cranial nerves II through XII intact. Motor and sensory grossly within normal limits. Five out of 5 muscle strength in all muscle groups. Normal speech. Laboratory Laboratory Tests Test 08/01/16 08/01/16 21:00 23:30 White Blood Count 23.5 Red Blood Count 4.56 Hemoglobin 13.2 Hematocrit 39.8 Mean Corpuscular Volume 87.3 Mean Corpuscular Hemoglobin 29.0 Mean Corpuscular Hemoglobin 33.3 Concent Red Cell Distribution Width 14.0 Platelet Count 325 Mean Platelet Volume 10.6 Neutrophils (%) (Auto) 89.9 Lymphocytes (%) (Auto) 5.4 Monocytes (%) (Auto) 4.1 Eosinophils (%) (Auto) 0.4 Basophils (%) (Auto) 0.2 Neutrophils # (Auto) 21.1 Lymphocytes # (Auto) 1.3 Monocytes # (Auto) 1.0 Eosinophils # (Auto) 0.1 Basophils # (Auto) 0.1 CBC Comment AUTO DIFF Differential Comment AUTO DIFF CONFIRMED Platelet Estimate NORMAL Platelet Morphology Comment NORMAL Red Cell Morphology Comment NORMAL Prothrombin Time 10.7 Prothromb Time International 1.0 Ratio Activated Partial 24.9 Thromboplast Time Sodium Level 145 Potassium Level 5.8 Chloride Level 108 Carbon Dioxide Level 20.3 Anion Gap 17 Blood Urea Nitrogen 38 Creatinine 6.94 Estimat Glomerular Filtration 8 Rate Random Glucose 168 Lactic Acid Level 6.1 1.6 Calcium Level 9.6 Magnesium Level 2.2 Total Bilirubin 0.4 Aspartate Amino Transf 31 (AST/SGOT) Alanine Aminotransferase 15 (ALT/SGPT) Alkaline Phosphatase 81 Total Creatine Kinase 125 Creatine Kinase MB 2.3 Troponin I LESS THAN 0.02 C-Reactive Protein 1.20 B-Type Natriuretic Peptide 565 Total Protein 8.1 Albumin 3.7 Lipase 135 Date/Time Procedure Status Source Growth 08/01/16 21:00 Aerobic Blood Culture Received Blood Peripheral Pending 08/01/16 21:00 Anaerobic Blood Culture Received Blood Peripheral Pending Result Diagram: 08/01/16 2100 08/01/16 2100 Imaging Last Impressions Abdomen/Pelvis CT 08/01/163 Signed Impressions: Service Date/Time: Monday, August 01, 2016 22:50 - CONCLUSION: 1. Left-sided inguinal hernia containing a loop of small bowel and fluid in the left inguinal canal. However no evidence for small bowel obstruction. 2. Right-sided colostomy. 3. Renal cortical atrophy with stable renal calcifications and exophytic cysts. 4. Hiatal hernia. Eduardo Cano MD Chest X-Ray 08/01/162030 Signed Impressions: Service Date/Time: Monday, August 01, 2016 20:57 - CONCLUSION: 1. No acute cardiopulmonary disease. Samuel Ward MD Assessment and Plan Assessment and Plan //Sepsis -Tachycardia, Leukocytosis. Rigors -Lactate elevated at 6, however subsequently improved. -Recent botulinum toxin injections to pyloric sphincter UA ordered stat, has not been obtained. -vasc cath -need gram-positive coverage -Rigors indicate possible gram-negative sepsis. Patient had bethanechol started recently for urinary symptoms. - vancomycin, Zosyn, Levaquin. -Chest x-ray with no acute finding. -Continue antibiotics. Follow-up blood cultures. Urinalysis ordered, reordered. //History of gastroparesis //Nausea, vomiting //GERD. Chronic. -Continue PPI -Zofran IV for nausea. -Consult gastroenterology due to recent pyloric sphincter injections //Abdominal pain. -CT abdomen and personally reviewed Patient does have a small hernia with loops of small bowel in the left inguinal canal, however no obstruction. Recent injections of pyloric sphincter. -Lactate initially elevated around 6, subsequent improvement. SMA atherosclerosis. Possible bowel ischemia. -We'll continue PPI IV. Consult gastroenterology. //End-stage renal disease. On hemodialysis Consult nephrology for dialysis. //Depression. Chronic. Continue home medications //Hyperkalemia. Likely secondary to lactic acidosis. Expect to improve with treatment of sepsis. Patient was given Kayexalate in the ER. Follow-up electrolytes. Nephrology consulted. Appreciate assistance. //Hypertension. Chronic. Hold blood pressure medications for now, with exception of metoprolol. //Urinary retention. Continue bethanechol Discussed Condition With Patient, nurse, ED physician. Physician Certification 2 Midnight Certification Type: Admission for Inpatient Services Order for Inpatient Services The services are ordered in accordance with Medicare regulations or non- Medicare payer requirements, as applicable. In the case of services not specified as inpatient-only, they are appropriately provided as inpatient services in accordance with the 2-midnight benchmark. Estimated LOS (days): 3 days is the estimated time the patient will need to remain in the hospital, assuming treatment plan goals are met and no additional complications. Post-Hospital Plan: Not yet determined Ulisses Jacinto MD Aug 02, 2016 03:29
[2016-08-02] MEDS ORDERED: ACETAMINOPHEN 325 MG TAB PO ONE (03:45)
[2016-08-02] MEDS ORDERED: SODIUM BICARBONATE 650 MG TAB PO ONE (03:45)
[2016-08-02] MEDS ORDERED: SODIUM CHLOR 0.9% 1000 ML INJ 1,000 ML IV ONE (03:45)
[2016-08-02] MEDS: PIPERACIL-TAZO 2.25 GM PREMIX 50 ML IV SCH ×4 (04:00→21:46)
[2016-08-02] MEDS ORDERED: HYDROmorphone HCL PF 1 MG/ML VIAL IV PRN ×2 (04:45)
[2016-08-02] MEDS ORDERED: NALOXONE HCL 0.4 MG/ML AMP IV PRN (04:45)
[2016-08-02] MEDS ORDERED: CHLORHEXIDINE GLUCONATE 2 % 1 PACK (2 CLOTHS)(extra cloths) TOPICAL PRN (05:00)
[2016-08-02 05:21] LABS: AUTOMATED NEUTROPHIL # 15.5 TH/MM3 (1.8-7.7); BASOPHIL % 0.2 % (0.0-2.0); HEMATOCRIT 34.6 % (39.0-51.0); HEMO FLAGS DIFF FINAL; LYMPHOCYTE # 1.1 TH/MM3 (1.0-4.8); MEAN CELL VOLUME 86.5 FL (80.0-100.0); MEAN CORPUSCULAR HEMOGLOBIN 28.1 PG (27.0-34.0); MEAN CORPUSCULAR HGB CONC 32.5 % (32.0-36.0); MONO % 5.6 % (0.0-8.0); NEUT % 88.2 % (16.0-70.0); PLATELET COUNT 238 TH/MM3 (150-450); RED CELL DISTRIBUTION WIDTH 13.9 % (11.6-17.2); WHITE BLOOD COUNT 17.6 TH/MM3 (4.0-11.0)
[2016-08-02 05:36] LABS: ALKALINE PHOSPHATASE 73 U/L (45-117); ALT (GPT) 12 U/L (12-78); ANION GAP 11 MEQ/L (5-15); AST (GOT) 7 U/L (15-37); BICARBONATE 25.1 MEQ/L (21.0-32.0); BLOOD UREA NITROGEN 39 MG/DL (7-18); CHLORIDE 112 MEQ/L (98-107); GLOMERULAR FILTRATION RATE 8 ML/MIN (>89); POTASSIUM 4.5 MEQ/L (3.5-5.1); SODIUM (NA) 148 MEQ/L (136-145); TOTAL BILIRUBIN ADULT 0.5 MG/DL (0.2-1.0)
[2016-08-02 06:26] LABS: BLOOD, URINE SMALL (NEG); GLUCOSE,URINE TRACE mg/dL (NEG); GRANULAR CAST, URINE 5 /lpf; HYALINE CAST, URINE 1 /lpf (RARE); KETONE, URINE NEG (NEG); MUCUS URINE FEW /lpf (OCC); NITRITE,URINE NEG (NEG); SQUAMOUS EPITHELIAL CELL URINE <1 /hpf (0-5); URINE COLOR YELLOW (YELLW/STRAW)
[2016-08-02 06:27] LABS: COMMENT (UR) CATH-CULT NOT IND; CULTURE IF INDICATED CATH CULTURE NOT IND
[2016-08-02] MEDS: INSULIN ASPART SUPPLEMENTAL SCALE SQ SCH ×4 (07:00→21:00)
[2016-08-02] MEDS ORDERED: SODIUM CHLOR 0.9% 1000 ML INJ 1,000 ML IV PRN ×3 (08:49)
--- NOTE | 2016-08-02 08:49 | PD.CONS ---
[facility] Service Nephrology Consult Requested By Dr. Jacinot Reason for Consult Known ESRD on HD Primary Care Physician [facility] History of Present Illness The patient is a 56yo [place] male who is known to our services for ESRD. He has has recurrent issues with NV over the past 6 months with multiple admissions for the same. Was recently admitted just a week ago and underwent Botox injections of esophagus. Says he was feeling fine until yesterday AM when nausea, vomiting, and high output from his ostomy started. [place]idge feverish, chills, and weak. Does have sharp epigastric abdominal pain. Denies CP or SOB. Last HD was Sunday. Typically TTS schedule. (Eugenie Britton) Review of Systems Constitutional: COMPLAINS OF: Diaphoretic episodes, Fever, Chills Gastrointestinal: COMPLAINS OF: Diarrhea, Nausea, Vomiting (Eugenie Britton) Past Family Social History Allergies: Coded Allergies: No Known Allergies (Unverified , 08/01/16) Past Medical History End-stage renal disease Congestive heart failure Hypertension Secondary hyperparathyroidism renal disease Diabetes mellitus Peripheral arterial disease/peripheral vascular disease Anemia renal disease Hx of ischemic colitis requiring partial colectomy and colostomy Hx gangrene right great toe Gastritis/Esophagitis Atherosclerotic vascular disease Depression/Anxiety C Diff history Mitral regurgitation Secondary hyperparathyroidism secondary to Vitamin D Deficiency Gastroparesis Past Surgical History Bypass of the right leg. Amputation of the right big toe. Hemicolectomy/Colostomy. PCI status post stent 2 years ago after an OR. Left av fistula Right tunneled subclavian dialysis catheter placement EGD Reported Medications Reported Meds & Active Scripts Active Urecholine (Bethanechol Chloride) 25 Mg Tab 25 Mg PO Q8HR PRN Protonix (Pantoprazole Sodium) 40 Mg Tab 40 Mg PO BID Zofran Odt (Ondansetron Odt) 8 Mg Tab 8 Mg SL Q8H PRN Reported Bumex (Bumetanide) 2 Mg Tab 2 Mg PO DAILY Enalapril (Enalapril Maleate) Unknown Strength Tab Unknown Dose PO DAILY Tramadol (Tramadol HCl) 50 Mg Tab 100 Mg PO BID PRN Norvasc (Amlodipine Besylate) 10 Mg Tab 10 Mg PO DAILY Buspirone (Buspirone HCl) 10 Mg Tab 10 Mg PO BID Citalopram (Citalopram Hydrobromide) 20 Mg Tab 20 Mg PO DAILY Metoprolol Tartrate 50 Mg Tab 50 Mg PO BID Active Ordered Medications Current Medications Medications (Trade) Dose Ordered Sig/Hallie Route Start Time Stop Time Status Last Admin (NS Flush) 2 ml UNSCH PRN IV FLUSH 08/01/16 22:45 (NS Flush) 2 ml BID IV FLUSH 08/02/16 09:00 (Tylenol) 650 mg Q4H PRN PO 08/01/16 22:45 (Zofran Inj) 4 mg Q6H PRN IVP 08/01/16 22:45 (Milk Of Magnesia Liq) 30 ml Q12H PRN PO 08/01/16 22:45 (Heparin Inj) 5,000 units Q12H SQ 08/01/16 23:00 08/01/16 23:56 Naloxone HCl 0.4 mg 0.4 mg UNSCH PRN IV 08/01/16 22:45 (Zosyn 2.25 Gm Premix) 50 ml @ 100 mls/hr Q6H IV 08/02/16 04:00 08/02/16 04:00 (D50w (Vial) Inj) 25 ml UNSCH PRN IV PUSH 08/01/16 22:45 Glucagon 1 mg 1 mg UNSCH PRN OTHER 08/01/16 22:45 (Levaquin 500 Mg Premix Inj) 100 ml @ 100 mls/hr Q48H IV 08/01/16 23:00 (Lopressor) 50 mg BID PO 08/02/16 09:00 (Ecotrin Ec) 81 mg DAILY PO 08/02/16 09:00 (Urecholine) 25 mg Q8HR PRN PO 08/02/16 03:15 (Buspar) 10 mg BID PO 08/02/16 09:00 (CeleXA) 20 mg DAILY PO 08/02/16 09:00 (Protonix Inj) 40 mg Q12H IV PUSH 08/02/16 15:00 (Dilaudid Pf Inj) 0.2 mg Q3H PRN IV 08/02/16 04:45 (Dilaudid Pf Inj) 0.5 mg Q3H PRN IV 08/02/16 04:45 (Dilaudid Pf Inj) 0.5 mg Q3H PRN IV 08/02/16 04:45 (Narcan Inj) 0.4 mg UNSCH PRN IV 08/02/16 04:45 Miscellaneous Information Patient in critical care unit? Ass... Q361D XX 08/02/16 05:00 (Chlorhexidine 2% Cloth) 3 pack DAILY@04 TOPICAL 08/03/16 04:00 08/07/16 04:01 (Chlorhexidine 2% Cloth) 3 pack UNSCH PRN TOPICAL 08/02/16 05:00 08/07/16 04:58 Family History Non-contributory Social History Tobacco use Marijuana use Denies any EtOH abuse (Eugenie Britton) Physical Exam Vital Signs Vital Signs Date Time Temp Pulse Resp B/P Pulse Ox O2 Delivery O2 Flow Rate FiO2 08/02/16 06:00 98.6 102 13 174/90 100 08/02/16 06:00 102 08/02/16 04:00 100 08/02/16 03:00 122 08/02/16 02:42 98.5 124 20 170/91 100 08/02/16 01:00 98.9 105 16 170/89 98 Room Air 08/02/16 00:00 99 16 158/91 100 Room Air 08/01/16 23:00 102 16 153/85 98 Room Air 08/01/16 21:33 118 16 163/87 100 Room Air 08/01/16 20:09 98.8 140 20 150/88 99 Physical Exam GENERAL: Pt laying in bed. Mild distress. Ill-appearing, pale. Skin clammy to touch SKIN: Warm and dry. HEAD: Atraumatic. Normocephalic. EYES: Pupils equal and round. No scleral icterus. No injection or drainage. ENT: No nasal bleeding or discharge. Mucous membranes pink and moist. NECK: Trachea midline. No JVD. CARDIOVASCULAR: Regular rate and rhythm. RESPIRATORY: No accessory muscle use. Clear to auscultation. Breath sounds equal bilaterally. GASTROINTESTINAL: Abdomen soft,tender epigastric. Colostomy present R abdomen MUSCULOSKELETAL: Extremities without clubbing, cyanosis, or edema. No obvious deformities. NEUROLOGICAL: Awake and alert. Normal speech. PSYCHIATRIC: Appropriate mood and affect; insight and judgment normal. Laboratory Laboratory Tests Test 08/01/16 08/01/16 08/02/16 08/02/16 21:00 23:30 03:00 04:14 White Blood Count 23.5 17.6 Red Blood Count 4.56 4.00 Hemoglobin 13.2 11.2 Hematocrit 39.8 34.6 Mean Corpuscular Volume 87.3 86.5 Mean Corpuscular Hemoglobin 29.0 28.1 Mean Corpuscular Hemoglobin 33.3 32.5 Concent Red Cell Distribution Width 14.0 13.9 Platelet Count 325 238 Mean Platelet Volume 10.6 9.6 Neutrophils (%) (Auto) 89.9 88.2 Lymphocytes (%) (Auto) 5.4 6.0 Monocytes (%) (Auto) 4.1 5.6 Eosinophils (%) (Auto) 0.4 0.0 Basophils (%) (Auto) 0.2 0.2 Neutrophils # (Auto) 21.1 15.5 Lymphocytes # (Auto) 1.3 1.1 Monocytes # (Auto) 1.0 1.0 Eosinophils # (Auto) 0.1 0.0 Basophils # (Auto) 0.1 0.0 CBC Comment AUTO DIFF DIFF FINAL Differential Comment AUTO DIFF CONFIRMED Platelet Estimate NORMAL Platelet Morphology Comment NORMAL Red Cell Morphology Comment NORMAL Prothrombin Time 10.7 Prothromb Time International 1.0 Ratio Activated Partial 24.9 Thromboplast Time Sodium Level 145 148 Potassium Level 5.8 4.5 Chloride Level 108 112 Carbon Dioxide Level 20.3 25.1 Anion Gap 17 11 Blood Urea Nitrogen 38 39 Creatinine 6.94 6.85 Estimat Glomerular Filtration 8 8 Rate Random Glucose 168 121 Lactic Acid Level 6.1 1.6 Calcium Level 9.6 9.1 Magnesium Level 2.2 Total Bilirubin 0.4 0.5 Aspartate Amino Transf 31 7 (AST/SGOT) Alanine Aminotransferase 15 12 (ALT/SGPT) Alkaline Phosphatase 81 73 Total Creatine Kinase 125 Creatine Kinase MB 2.3 Troponin I LESS THAN 0.02 C-Reactive Protein 1.20 B-Type Natriuretic Peptide 565 Total Protein 8.1 7.0 Albumin 3.7 3.3 Lipase 135 Nasal Screen MRSA (PCR) NEGATIVE Test 08/02/16 05:50 Urine Color YELLOW Urine Turbidity HAZY Urine pH 6.0 Urine Specific Mobile 1.018 Urine Protein 100 Urine Glucose (UA) TRACE Urine Ketones NEG Urine Occult Blood SMALL Urine Nitrite NEG Urine Bilirubin NEG Urine Urobilinogen LESS THAN 2.0 Urine Leukocyte Esterase TRACE Urine RBC 7 Urine WBC 4 Urine Squamous Epithelial <1 Cells Urine Hyaline Casts 1 Urine Granular Casts 5 Urine Mucus FEW Microscopic Urinalysis Comment CATH-CULT NOT IND Date/Time Procedure Status Source Growth 08/01/16 21:00 Aerobic Blood Culture Received Blood Peripheral Pending 08/01/16 21:00 Anaerobic Blood Culture Received Blood Peripheral Pending (Eugenie Britton) Result Diagram: 08/02/1641308/02/16413 Imaging Last Impressions Abdomen/Pelvis CT 08/01/162224 Signed Impressions: Service Date/Time: Monday, August 01, 2016 22:50 - CONCLUSION: 1. Left-sided inguinal hernia containing a loop of small bowel and fluid in the left inguinal canal. However no evidence for small bowel obstruction. 2. Right-sided colostomy. 3. Renal cortical atrophy with stable renal calcifications and exophytic cysts. 4. Hiatal hernia. Eduardo Cano MD Chest X-Ray 08/01/162030 Signed Impressions: Service Date/Time: Monday, August 01, 2016 20:57 - CONCLUSION: 1. No acute cardiopulmonary disease. Samuel Ward MD (Eugenie Britton) Assessment and Plan Problem List: (1) ESRD (end stage renal disease) on dialysis Plan: Last HD Sunday. Hyperkalemia this AM that was corrected with Kionex. Plan for HD today. Medications should be adjusted for the patient's ESRD. Avoid gadolinium as eGFR <30 (2) Intractable nausea and vomiting Plan: Recurrent issue. Failed recent botox injections. Appreciate GI input (3) Sepsis Plan: On abx. BCx pending. (4) DM (diabetes mellitus) Plan: Mgmt as per primary (5) HTN (hypertension) Plan: Continue on home regimen. Will re-eval after HD and adjust if needed. (Eugenie Britton) Assessment and Plan The exam, history, and the medical decision-making described in the above note were completed with the assistance of the PAJackson. I reviewed and agree with the findings presented. (David Kennedy MD) Eugenie Britton Aug 02, 2016 08:49 David Kennedy MD Aug 02, 2016 18:37
[2016-08-02] MEDS ORDERED: GELATIN 12 MM/7 MM FOAM TOP PRN (09:00)
[2016-08-02] MEDS ORDERED: MANNITOL 12.5 GM/50 ML VIAL IV PRN (09:00)
[2016-08-02] MEDS ORDERED: NITROGLYCERIN 0.4 MG SL 25 TABS/BTL SL PRN (09:00)
[2016-08-02] MEDS ORDERED: diphenhydrAMINE HCL 25 MG CAP PO PRN (09:00)
[2016-08-02] MEDS ORDERED: cloNIDine HCL 0.1 MG TAB PO PRN (09:00)
[2016-08-02] MEDS ORDERED: SODIUM CHLORIDE 0.9% FLUSH 10 ML FLUSH IV FLUSH PRN (09:00)
[2016-08-02] MEDS ORDERED: BUMETANIDE 1 MG TAB PO SCH (09:00)
[2016-08-02] MEDS ORDERED: ACETAMINOPHEN 325 MG TAB PO PRN (09:00)
[2016-08-02] MEDS ORDERED: ALBUMIN HUMAN 25% 25 GM/100 ML BAGP IV PRN (09:00)
[2016-08-02] MEDS ORDERED: HEPARIN SODIUM - IV 10,000 UNITS/10 ML VIAL IVF PRN (09:00)
[2016-08-02] MEDS ORDERED: ONDANSETRON HCL 4 MG/2 ML VIAL IV PRN (09:00)
[2016-08-02] MEDS: ASPIRIN EC 81 MG TABEC PO SCH (09:10)
[2016-08-02] MEDS: busPIRone HCL 10 MG TAB PO SCH ×2 (09:10→21:45)
[2016-08-02] MEDS: CITALOPRAM HYDROBROMIDE 20 MG TAB PO SCH (09:10)
[2016-08-02] MEDS: SODIUM CHLORIDE 0.9% FLUSH 10 ML FLUSH IV FLUSH SCH ×2 (09:12→21:00)
[2016-08-02] MEDS: METOPROLOL TARTRATE 50 MG TAB PO SCH ×2 (09:19→21:45)
[2016-08-02] MEDS ORDERED: hydrALAZINE HCL 20 MG/ML VIAL IV PUSH PRN (09:45)
--- NOTE | 2016-08-02 11:03 | PD.CONS ---
HPI History of Present Illness This is a 56 year old male known history of recurrent nausea and vomiting, GERD , gastritis, esophagitis, ischemic colitis, and gastroparesis. He has had multiple hospitalizations for nausea and vomiting. He was recently hospitalized from for abdominal pain, nausea, and vomiting. He underwent EGD with Botox injections (07/26/16) and this revealed duodenitis and the second portion, gastritis in the antrum, esophagitis/stricture distal esophagus, old PEG site and gastric body, Botox 100 units and pyloric channel 25 units in each quadrant injected, and dilatation savory 12.8, 14, retroflex views revealed a hiatal hernia. He was also treated with bethanechol during this hospitalization. His symptoms improved and he was discharged home. The patient reports that he was not discharged home on the bethanechol, just the Protonix and Zofran. He reports that he did well for several days but started having chills with diaphoresis about a week ago. On Sunday he came to the emergency room, but states he was sent home. The next morning he began having nausea and vomiting consisting of undigested food with abdominal pain which she describes as a constant dull ache from persistent vomiting that is aggravated by movement. He denies any hematemesis and reports that he's had brown stool from his colostomy bag he returned to the ER and was admitted for possible sepsis with intractable nausea and vomiting. He is currently resting in bed in no distress. The nausea and vomiting has subsided. He is currently receiving solids and has tolerated this so far. Of note he is a dialysis patient and gets dialysis on Tuesdays, , and Saturdays. (Mya Christian) PFSH Past Medical History End-stage renal disease CHF Hypertension Secondary hyper hyperparathyroidism renal disease next line diabetes Peripheral arterial disease/peripheral vascular disease Anemia of chronic disease History of ischemic colitis requiring partial colectomy and colostomy History of gangrene right great toe Gastritis Esophagitis Gastroparesis Atherosclerotic vascular disease Depression/anxiety History of C. difficile Mitral regurgitation Past Surgical History Colostomy Right big toe amputated Right leg fem-pop bypass Cardiac catheterization with PCI status post stent placement Vascular catheter placed right upper chest EGD with Botox injections (Mya Christian) Coded Allergies: No Known Allergies (Unverified , 08/01/16) Medications Allergies Coded Allergies Type Severity Reaction Last Updated Verified No Known Allergies 08/01/16 No Active Scripts Medications Dose Route/Sig Days Date Category Urecholine (Bethanechol Chloride) 25 Mg Tab 25 Mg PO Q8HR PRN 07/26/16 Rx Protonix (Pantoprazole Sodium) 40 Mg Tab 40 Mg PO BID 07/26/16 Rx Bumex (Bumetanide) 2 Mg Tab 2 Mg PO DAILY 07/24/16 Reported Enalapril (Enalapril Maleate) Unknown Strength Tab Unknown Dose PO DAILY 07/24/16 Reported Zofran Odt (Ondansetron Odt) 8 Mg Tab 8 Mg SL Q8H PRN 06/10/16 Rx Tramadol (Tramadol HCl) 50 Mg Tab 100 Mg PO BID PRN 06/02/16 Reported Norvasc (Amlodipine Besylate) 10 Mg Tab 10 Mg PO DAILY 04/18/16 Reported Buspirone (Buspirone HCl) 10 Mg Tab 10 Mg PO BID 04/18/16 Reported Citalopram (Citalopram Hydrobromide) 20 Mg Tab 20 Mg PO DAILY 04/18/16 Reported Metoprolol Tartrate 50 Mg Tab 50 Mg PO BID 04/18/16 Reported Family History Mother with leukemia Brother with brain aneurysm Father from injuries sustained in a motor vehicle collision . Social History Patient smokes one half pack per day for 40 years Denies drinking. Denies any illicit drugs. (Mya Christian) Review of Systems Constitutional: COMPLAINS OF: Fatigue, Chills, DENIES: Fever Respiratory: DENIES: Cough Cardiovascular: DENIES: Chest pain Gastrointestinal: COMPLAINS OF: Abdominal pain, Nausea, Vomiting, DENIES: Black stools, Bloody stools, Constipation, Diarrhea, Swelling of Abdomen, Heartburn, Hematemesis Integumentary: DENIES: Abnormal pigmentation Hematologic/lymphatic: DENIES: Bruising Neurologic: DENIES: Headache Psychiatric: DENIES: Confusion (Mya Christian) GI Exam Vitals I&O Vital Signs Date Time Temp Pulse Resp B/P Pulse Ox O2 Delivery O2 Flow Rate FiO2 08/02/16 06:00 98.6 102 13 174/90 100 08/02/16 06:00 102 08/02/16 04:00 100 08/02/16 03:00 122 08/02/16 02:42 98.5 124 20 170/91 100 08/02/16 01:00 98.9 105 16 170/89 98 Room Air 08/02/16 00:00 99 16 158/91 100 Room Air 08/01/16 23:00 102 16 153/85 98 Room Air 08/01/16 21:33 118 16 163/87 100 Room Air 08/01/16 20:09 98.8 140 20 150/88 99 I/O 08/01/16 08/01/16 08/01/16 08/02/16 08/02/16 08/02/16 07:00 15:00 23:00 07:00 15:00 23:00 Intake Total 1413 ml Output Total 200 ml Balance 1213 ml Intake Oral 750 ml IV Total 663 ml Output Urine Total 200 ml Imaging Last Impressions Abdomen/Pelvis CT 08/01/162224 Signed Impressions: Service Date/Time: Monday, August 01, 2016 22:50 - CONCLUSION: 1. Left-sided inguinal hernia containing a loop of small bowel and fluid in the left inguinal canal. However no evidence for small bowel obstruction. 2. Right-sided colostomy. 3. Renal cortical atrophy with stable renal calcifications and exophytic cysts. 4. Hiatal hernia. Eduardo Cano MD Chest X-Ray 08/01/162030 Signed Impressions: Service Date/Time: Monday, August 01, 2016 20:57 - CONCLUSION: 1. No acute cardiopulmonary disease. Samuel Ward MD Laboratory Test 08/01/16 08/01/16 08/02/16 08/02/16 21:00 23:30 03:00 04:14 White Blood Count 23.5 TH/MM3 17.6 TH/MM3 Red Blood Count 4.56 MIL/MM3 4.00 MIL/MM3 Hemoglobin 13.2 GM/DL 11.2 GM/DL Hematocrit 39.8 % 34.6 % Mean Corpuscular Volume 87.3 FL 86.5 FL Mean Corpuscular Hemoglobin 29.0 PG 28.1 PG Mean Corpuscular Hemoglobin 33.3 % 32.5 % Concent Red Cell Distribution Width 14.0 % 13.9 % Platelet Count 325 TH/MM3 238 TH/MM3 Mean Platelet Volume 10.6 FL 9.6 FL Neutrophils (%) (Auto) 89.9 % 88.2 % Lymphocytes (%) (Auto) 5.4 % 6.0 % Monocytes (%) (Auto) 4.1 % 5.6 % Eosinophils (%) (Auto) 0.4 % 0.0 % Basophils (%) (Auto) 0.2 % 0.2 % Neutrophils # (Auto) 21.1 TH/MM3 15.5 TH/MM3 Lymphocytes # (Auto) 1.3 TH/MM3 1.1 TH/MM3 Monocytes # (Auto) 1.0 TH/MM3 1.0 TH/MM3 Eosinophils # (Auto) 0.1 TH/MM3 0.0 TH/MM3 Basophils # (Auto) 0.1 TH/MM3 0.0 TH/MM3 CBC Comment AUTO DIFF DIFF FINAL Differential Comment AUTO DIFF CONFIRMED Platelet Estimate NORMAL Platelet Morphology Comment NORMAL Red Cell Morphology Comment NORMAL Prothrombin Time 10.7 SEC Prothromb Time International 1.0 RATIO Ratio Activated Partial 24.9 SEC Thromboplast Time Sodium Level 145 MEQ/L 148 MEQ/L Potassium Level 5.8 MEQ/L 4.5 MEQ/L Chloride Level 108 MEQ/L 112 MEQ/L Carbon Dioxide Level 20.3 MEQ/L 25.1 MEQ/L Anion Gap 17 MEQ/L 11 MEQ/L Blood Urea Nitrogen 38 MG/DL 39 MG/DL Creatinine 6.94 MG/DL 6.85 MG/DL Estimat Glomerular Filtration 8 ML/MIN 8 ML/MIN Rate Random Glucose 168 MG/DL 121 MG/DL Lactic Acid Level 6.1 mmol/L 1.6 mmol/L Calcium Level 9.6 MG/DL 9.1 MG/DL Magnesium Level 2.2 MG/DL Total Bilirubin 0.4 MG/DL 0.5 MG/DL Aspartate Amino Transf 31 U/L 7 U/L (AST/SGOT) Alanine Aminotransferase 15 U/L 12 U/L (ALT/SGPT) Alkaline Phosphatase 81 U/L 73 U/L Total Creatine Kinase 125 U/L Creatine Kinase MB 2.3 NG/ML Troponin I LESS THAN 0.02 NG/ML C-Reactive Protein 1.20 MG/DL B-Type Natriuretic Peptide 565 PG/ML Total Protein 8.1 GM/DL 7.0 GM/DL Albumin 3.7 GM/DL 3.3 GM/DL Lipase 135 U/L Nasal Screen MRSA (PCR) NEGATIVE Test 08/02/16 05:50 Urine Color YELLOW Urine Turbidity HAZY Urine pH 6.0 Urine Specific [place] 1.018 Urine Protein 100 mg/dL Urine Glucose (UA) TRACE mg/dL Urine Ketones NEG mg/dL Urine Occult Blood SMALL Urine Nitrite NEG Urine Bilirubin NEG Urine Urobilinogen LESS THAN 2.0 MG/DL Urine Leukocyte Esterase TRACE Urine RBC 7 /hpf Urine WBC 4 /hpf Urine Squamous Epithelial <1 /hpf Cells Urine Hyaline Casts 1 /lpf Urine Granular Casts 5 /lpf Urine Mucus FEW /lpf Microscopic Urinalysis Comment CATH-CULT NOT IND Date/Time Procedure Status Source Growth 08/01/16 21:00 Aerobic Blood Culture Received Blood Peripheral Pending 08/01/16 21:00 Anaerobic Blood Culture Received Blood Peripheral Pending Physical Examination HEENT: Normocephalic; atraumatic; no jaundice. CHEST: CTA CARDIAC: RRR ABDOMEN: Soft, nondistended, nontender; no hepatosplenomegaly; bowel sounds are present in all four quadrants. Right sided colostomy EXTREMITIES: No clubbing, cyanosis, or edema. SKIN: Normal; no rash; no jaundice. SEAT COVER MAKER: No focal deficits; alert and oriented times three. (Mya Christian) Assessment and Plan Plan ASSESSMENT: - Intractable nausea and vomiting, gastroparesis. S/P EGD with Botox injections (07/26/16) and this revealed duodenitis and the second portion, gastritis in the antrum, esophagitis/stricture distal esophagus, old PEG site and gastric body, Botox 100 units and pyloric channel 25 units in each quadrant injected, and dilatation savory 12.8, 14, retroflex views revealed a hiatal hernia. He was also treated with bethanechol during this hospitalization, his symptoms improved and he was discharged home on PPI and Zofran per patient. He started having nausea/vomiting with Undigested food on Sunday and returned to the ER. He is currently being treated with IV fluids, PPI, Zofran when necessary. Will add Bethanechol 10 mg by mouth 3 times a day, as this seemed to help during his last hospitalization. He could go home on this at discharge, d/w possible side effects. JOSEPH. - Leukocytosis, possible sepsis. Per primary. WBC improved 17.6. BCx pending. Zosyn. - Anemia, chronic. 11.2/34.6 No obvious GI blood loss. - ESRD, HD Sunday//Sunday. - DM, HTN per primary PLAN: - Renal diet as tolerated - Change bethanechol to 10 mg by mouth 3 times a day - Continue IV fluid - Continue PPI - Continue Zofran when necessary - Supportive care - Patient seen and examined by Dr. Forbes and myself and this note is written on his behalf (Mya Christian) Physician Comments Patient seen and examined Agree with above Continue with current supportive care Monitor labs Resuming bethanechol (Randy Forbes MD) Mya Christian Aug 02, 2016 11:03 Randy Forbes MD Aug 02, 2016 20:14
[2016-08-02] MEDS: HEPARIN SODIUM - SQ 10,000 UNITS/ML VIAL SQ SCH ×2 (11:28→21:45)
[2016-08-02] MEDS: GENTAMICIN SULFATE (DIALYSIS USE ONLY) 20 MG/2 ML VIAL IV PRN (13:03)
[2016-08-02] MEDS: HEPARIN SODIUM - IV 10,000 UNITS/10 ML VIAL PRN (13:03)
--- NOTE | 2016-08-02 15:26 | HHI.PR ---
Subjective Remarks f/u for sepsis, abdominal pain, N/V patient has no complaints. he denied any N/V or abdominal pain. he stated he is feeling a lot better now. He stated before admission he did have chills. Objective Vitals Vital Signs Date Time Temp Pulse Resp B/P Pulse Ox O2 Delivery O2 Flow Rate FiO2 08/02/16 12:00 67 08/02/16 12:00 97.2 67 14 164/83 100 08/02/16 10:00 69 08/02/16 08:00 98.7 92 12 178/86 100 08/02/16 08:00 92 08/02/16 06:00 98.6 102 13 174/90 100 08/02/16 06:00 102 08/02/16 04:00 100 08/02/16 03:00 122 08/02/16 02:42 98.5 124 20 170/91 100 08/02/16 01:00 98.9 105 16 170/89 98 Room Air 08/02/16 00:00 99 16 158/91 100 Room Air 08/01/16 23:00 102 16 153/85 98 Room Air 08/01/16 21:33 118 16 163/87 100 Room Air 08/01/16 20:09 98.8 140 20 150/88 99 I/O 08/01/16 08/01/16 08/01/16 08/02/16 08/02/16 08/02/16 07:00 15:00 23:00 07:00 15:00 23:00 Intake Total 1413 ml Output Total 200 ml 1000 ml Balance 1213 ml -1000 ml Intake Oral 750 ml IV Total 663 ml Output Urine Total 200 ml Hemodialysis 1000 ml Result Diagram: 08/02/16 0414 08/02/16 0414 Objective Remarks GENERAL: in NAD CARDIOVASCULAR: Regular rate and rhythm without murmurs, gallops, or rubs. RESPIRATORY: Breath sounds equal bilaterally. No accessory muscle use. GASTROINTESTINAL: Abdomen soft, non-tender, nondistended. MUSCULOSKELETAL: No cyanosis, or edema. BACK: Nontender without obvious deformity. No CVA tenderness. Medications and IVs Current Medications Ondansetron HCl 4 mg 4 mg ONCE ONCE IV Last administered on 08/01/16t 21:08; Start 08/01/16 at 20:45; Stop 08/01/16 at 20:46; Status DC Sodium Chloride (NS 250 ml Inj) 250 ml @ 250 mls/hr BOLUS ONCE IV Last administered on 08/01/16 21:08; Start 08/01/16 at 20:45; Stop 08/01/16 at 21:44 ; Status DC Morphine Sulfate 2 mg 2 mg ONCE ONCE IV PUSH Last administered on 08/01/16 21 :28; Start 08/01/16 at 21:00; Stop 08/01/16 at 21:02; Status DC Piperacillin Sod/ Tazobactam Sod 50 ml @ 100 mls/hr ONCE ONCE IV Last administered on 08/01/16 23:07; Start 08/01/16 at 22:15; Stop 08/01/16 at 22:44 ; Status DC Vancomycin HCl/ Sodium Chloride (Vancomycin Inj/ NS 250 ml Inj) 250 ml @ 250 mls/hr ONCE ONCE IV Last administered on 08/01/16 23:55; Start 08/01/16 at 22 :15; Stop 08/01/16 at 23:14; Status DC Sodium Polystyrene Sulfonate 15 gm 15 gm ONCE ONCE PO Last administered on 23:55; Start 08/01/16 at 22:15; Stop 08/01/16 at 22:16; Status DC Sodium Chloride (NS 500 ml Inj) 500 ml @ 500 mls/hr BOLUS ONCE IV Last administered on 08/01/16 23:06; Start 08/01/16 at 22:15; Stop 08/01/16 at 23:14 ; Status DC Sodium Chloride (NS Flush) 2 ml UNSCH PRN IV FLUSH FLUSH AFTER USING IV ACCESS ; Start 08/01/16 at 22:45 Sodium Chloride (NS Flush) 2 ml BID IV FLUSH Last administered on 08/02/16 09: 12; Start 08/02/16 at 09:00 Acetaminophen (Tylenol) 650 mg Q4H PRN PO TEMP > 100.4; Start 08/01/16 at 22:45 Ondansetron HCl (Zofran Inj) 4 mg Q6H PRN IVP NAUSEA OR VOMITING; Start at 22:45 Magnesium Hydroxide (Milk Of Magnesia Liq) 30 ml Q12H PRN PO CONSTIPATION; Start 08/01/16 at 22:45 Heparin Sodium (Porcine) (Heparin Inj) 5,000 units Q12H SQ Last administered on 08/02/16 11:28; Start 08/01/16 at 23:00 Naloxone HCl 0.4 mg 0.4 mg UNSCH PRN IV SEE LABEL COMMENTS; Start 08/01/16 at 22:45; Stop 08/02/16 at 09:48; Status DC Pharmacy Profile Note 0 ml @ 0 mls/hr UNSCH OTHER ; Start 08/01/16 at 22:45; Stop 08/01/16 at 22:54; Status DC Piperacillin Sod/ Tazobactam Sod 50 ml @ 100 mls/hr Q6H IV Last administered on 08/02/16 09:25; Start 08/02/16 at 04:00 Levofloxacin/ Dextrose (Levaquin 750 Mg Premix Inj) 150 ml @ 100 mls/hr ONCE ONCE IV Last administered on 08/02/16 01:00; Start 08/01/16 at 23:00; Stop at 00:29; Status DC Dextrose (D50w (Vial) Inj) 25 ml UNSCH PRN IV PUSH HYPOGLYCEMIA-SEE COMMENTS; Start 08/01/16 at 22:45 Glucagon (Glucagon Inj) 1 mg UNSCH PRN OTHER HYPOGLYCEMIA-SEE COMMENTS; Start 08/01/16 at 22:45 Insulin Aspart 1 1 ACHS SLIDING SCALE SQ ; Start 08/02/16 at 07:00 Thiamine HCl 100 mg/Sodium Chloride 101 ml @ 101 mls/hr ONCE ONCE IV Last administered on 08/02/16 05:00; Start 08/01/16 at 23:00; Stop 08/01/16 at 23:59 ; Status DC Levofloxacin/ Dextrose (Levaquin 500 Mg Premix Inj) 100 ml @ 100 mls/hr Q48H IV ; Start 08/01/16 at 23:00 Metoprolol Tartrate 50 mg 50 mg BID PO Last administered on 08/02/16 09:19; Start 08/02/16 at 09:00 Pharmacy Profile Note (Vancomycin Consult Pharmacy) 0 ml @ 0 mls/hr UNSCH OTHER ; Start 08/02/16 at 03:15; Status UNV Pantoprazole Sodium (Protonix Inj) 40 mg ONCE ONCE IV PUSH Last administered on 08/02/16 03:15; Start 08/02/16 at 03:15; Stop 08/02/16 at 03:28; Status DC Pantoprazole Sodium (Protonix Inj) 40 mg Q12H IV PUSH ; Start 08/02/16 at 03:15 ; Status UNV Aspirin (Ecotrin Ec) 162 mg ONCE ONCE PO ; Start 08/02/16 at 03:15; Stop at 03:30; Status DC Aspirin (Ecotrin Ec) 81 mg DAILY PO Last administered on 08/02/16 09:10; Start 08/02/16 at 09:00 Bethanechol Chloride (Urecholine) 25 mg Q8HR PRN PO pain; Start 08/02/16 at 03: 15; Stop 08/02/16 at 11:05; Status DC Bumetanide (Bumetanide) 2 mg DAILY PO ; Start 08/02/16 at 09:00; Stop 08/02/16 at 09:00; Status DC Buspirone HCl (Buspar) 10 mg BID PO Last administered on 08/02/16 09:10; Start 08/02/16 at 09:00 Citalopram Hydrobromide (CeleXA) 20 mg DAILY PO Last administered on 08/02/16 09:10; Start 08/02/16 at 09:00 Pantoprazole Sodium (Protonix Inj) 40 mg Q12H IV PUSH ; Start 08/02/16 at 15:00 Acetaminophen 650 mg 650 mg ONCE ONCE PO ; Start 08/02/16 at 03:45; Stop at 03:46; Status DC Sodium Chloride (NS 1000 ml Inj) 1,000 ml @ 999 mls/hr BOLUS ONCE IV Last administered on 08/02/16 03:45; Start 08/02/16 at 03:45; Stop 08/02/16 at 04:45 ; Status DC Sodium Bicarbonate (Sodium Bicarbonate) 650 mg ONCE ONCE PO Last administered on 08/02/16 03:45; Start 08/02/16 at 03:45; Stop 08/02/16 at 03:50; Status DC Hydromorphone HCl (Dilaudid Pf Inj) 0.2 mg Q3H PRN IV Pain 3-5; if unable to take PO Last administered on 08/02/16 09:12; Start 08/02/16 at 04:45 Hydromorphone HCl (Dilaudid Pf Inj) 0.5 mg Q3H PRN IV Pain 6-10;if unable to take PO; Start 08/02/16 at 04:45 Hydromorphone HCl (Dilaudid Pf Inj) 0.5 mg Q3H PRN IV BREAKTHROUGH PAIN; Start 08/02/16 at 04:45 Naloxone HCl (Narcan Inj) 0.4 mg UNSCH PRN IV SEE LABEL COMMENTS; Start at 04:45 Miscellaneous Information Patient in critical care unit? Ass... [id number] ; Start 08/02/16 at 05:00 Chlorhexidine Gluconate (Chlorhexidine 2% Cloth) 3 pack DAILY@04 TOPICAL ; Start 08/03/16 at 04:00; Stop 08/07/16 at 04:01 Chlorhexidine Gluconate 3 pack 3 pack UNSCH PRN TOPICAL HYGIENIC CARE; Start at 05:00; Stop 08/07/16 at 04:58 Sodium Chloride (NS 1000 ml Inj) 1,000 ml @ 0 mls/hr Q0M PRN IV For Prime & Rinse Back Last administered on 08/02/16 13:03; Start 08/02/16 at 08:49 Heparin Sodium (Porcine) 8000 units 8,000 units UNSCH PRN IVF WITH DIALYSIS; Start 08/02/16 at 09:00 Sodium Chloride 1,000 ml @ 200 mls/hr Q5H PRN IV WITH DIALYSIS; Start 08/02/16 at 08:49 Sodium Chloride (NS 1000 ml Inj) 1,000 ml @ 0 mls/hr Q0M PRN IV WITH DIALYSIS; Start 08/02/16 at 08:49 Mannitol (Mannitol Inj) 12.5 gm UNSCH PRN IV WITH DIALYSIS; Start 08/02/16 at 09:00 Albumin Human (Albumin 25% Inj) 25 gm UNSCH PRN IV WITH DIALYSIS; Start at 09:00 Sodium Chloride (NS Flush) 5 ml UNSCH PRN IV FLUSH WITH DIALYSIS; Start at 09:00 Heparin Sodium (Porcine) (Heparin Inj) UNSCH PRN .XX WITH DIALYSIS Last administered on 08/02/16 13:03; Start 08/02/16 at 09:00 Gentamicin Sulfate (Gentamicin (Dialysis) Inj) 20 mg UNSCH PRN IV WITH DIALYSIS Last administered on 08/02/16 13:03; Start 08/02/16 at 09:00 Ondansetron HCl (Zofran Inj) 4 mg UNSCH PRN IV WITH DIALYSIS; Start 08/02/16 at 09:00 Acetaminophen (Tylenol) 650 mg UNSCH PRN PO for headach, pain, temp > 101F; Start 08/02/16 at 09:00 Diphenhydramine HCl (Benadryl) 25 mg UNSCH PRN PO for hives/itching/anaphylaxis ; Start 08/02/16 at 09:00 Nitroglycerin (Nitrostat Sl) 0.4 mg UNSCH PRN SL CHEST PAIN; Start 08/02/16 at 09:00 Clonidine (Catapres) 0.1 mg UNSCH PRN PO for BP > 180/100 X 2 readings Last administered on 08/02/16 09:39; Start 08/02/16 at 09:00 Gelatin (Gelfoam 12 Mm/7 Mm Top) 1 foam UNSCH PRN TOP SEE LABEL COMMENTS; Start 08/02/16 at 09:00 Hydralazine HCl (Apresoline Inj) 20 mg Q4H PRN IV PUSH SYS BP GREATER THAN 180 MMHG; Start 08/02/16 at 09:45 Bethanechol Chloride (Urecholine) 10 mg Q8HR PO ; Start 08/02/16 at 14:00 A/P Assessment and Plan Sepsis, Tachycardia, Leukocytosis. Rigors -Lactate elevated at 6, however subsequently improved. -Recent botulinum toxin injections to pyloric sphincter -UA ordered negative. -vasc cath -need gram-positive coverage -Chest x-ray with no acute finding. -Continue vancomycin, Zosyn, Levaquin pending blood cultures. History of gastroparesis s/p botox injection on 07/26/16 -symptoms IMPROVED. -GI consulted and ff. -Change bethanechol to 10 mg by mouth 3 times a day - Continue IV fluid - Continue PPI - Continue Zofran when necessary Abdominal pain. -due to gastroparesis. RESOLVED. -CT abdomen showed small hernia with loops of small bowel in the left inguinal canal, however no obstruction. Recent injections of pyloric sphincter. End-stage renal disease. On hemodialysis nephrology consulted and ff. Depression. - Chronic. Continue home medications Hyperkalemia. -IMPROVED. - Likely secondary to lactic acidosis. Expect to improve with treatment of sepsis. -Patient was given Kayexalate in the ER. - Follow-up electrolytes. Nephrology consulted. Appreciate assistance. Hypertension. -Chronic. -restart medication. Urinary retention. -Continue bethanechol Discharge Planning patient clinically improving waiting for [facility]IC bed. Inga Reid MD Aug 02, 2016 15:26
[2016-08-02] MEDS: PANTOPRAZOLE SODIUM 40 MG VIAL IV PUSH SCH (16:42)
[2016-08-02] MEDS: HYDROmorphone HCL PF 1 MG/ML VIAL IV PRN ×2 (16:42→21:49)
[2016-08-02] MEDS: BETHANECHOL CHL 10 MG TAB PO SCH ×2 (16:42→21:45)
[2016-08-02] MEDS: ONDANSETRON HCL 4 MG/2 ML VIAL IVP PRN ×2 (16:48→21:45)
[2016-08-03] VITALS (13 sets, daily range): BP systolic 99–150; BP diastolic 71–79; PULSE 63–76; RESP 13–20; TEMP 97.2–98.6; O2SAT 97–100
[2016-08-03] MEDS: CHLORHEXIDINE GLUCONATE 2 % 1 PACK (2 CLOTHS)(taper/protocol) TOPICAL SCH (04:00)
[2016-08-03 04:05] LABS: HEMATOCRIT 29.5 % (39.0-51.0); MEAN CELL VOLUME 85.2 FL (80.0-100.0); MEAN CORPUSCULAR HEMOGLOBIN 28.9 PG (27.0-34.0); MEAN CORPUSCULAR HGB CONC 33.9 % (32.0-36.0); PLATELET COUNT 173 TH/MM3 (150-450); RED BLOOD COUNT 3.46 MIL/MM3 (4.50-5.90); RED CELL DISTRIBUTION WIDTH 13.6 % (11.6-17.2); REVIEW FLAG FINAL; WHITE BLOOD COUNT 9.9 TH/MM3 (4.0-11.0)
[2016-08-03 04:50] LABS: BICARBONATE 32.2 MEQ/L (21.0-32.0); POTASSIUM 3.8 MEQ/L (3.5-5.1)
[2016-08-03] MEDS: PANTOPRAZOLE SODIUM 40 MG VIAL IV PUSH SCH ×2 (04:54→17:34)
[2016-08-03] MEDS: BETHANECHOL CHL 10 MG TAB PO SCH ×3 (04:54→22:15)
[2016-08-03] MEDS: PIPERACIL-TAZO 2.25 GM PREMIX 50 ML IV SCH ×3 (04:54→17:33)
[2016-08-03] MEDS: HYDROmorphone HCL PF 1 MG/ML VIAL IV PRN ×3 (05:04→20:50)
[2016-08-03] MEDS: INSULIN ASPART SUPPLEMENTAL SCALE SQ SCH ×4 (07:00→21:00)
[2016-08-03 07:02] LABS: C. DIFF EPI 027 PRESUMPTIVE NEGATIVE (NEGATIVE); C. DIFF TOXIN PCR NEGATIVE (NEGATIVE)
--- NOTE | 2016-08-03 08:33 | HHI.NPPN ---
Subjective History of Present Illness The patient is a 56yo [place] male who is known to our services for ESRD. He has has recurrent issues with NV over the past 6 months with multiple admissions for the same. Was recently admitted just a week ago and underwent Botox injections of esophagus. Says he was feeling fine until yesterday AM when nausea, vomiting, and high output from his ostomy started. [place] feverish, chills, and weak. Does have sharp epigastric abdominal pain. Denies CP or SOB. Last HD was Sunday. Typically TTS schedule. Interval History Pt feeling better today. Some chills, but no further vomiting or diarrhea. Being stepped down today from ICU (Eugenie Britton) Objective Data Data 08/02/16 08/03/16 19:00 07:00 Intake Total 340 ml Output Total 1000 ml 275 ml Balance -1000 ml 65 ml Intake Oral 125 ml IV Total 215 ml Output Urine Total 100 ml Stool Total 175 ml Hemodialysis 1000 ml Vital Signs Date Time Temp Pulse Resp B/P Pulse Ox O2 Delivery O2 Flow Rate FiO2 08/03/16 08:00 68 08/03/16 06:00 64 08/03/16 04:00 64 08/03/16 04:00 98.6 64 18 150/75 98 08/03/16 02:00 64 08/03/16 00:00 63 08/03/16 00:00 98.4 63 13 149/71 99 08/02/16 22:00 72 08/02/16 20:00 72 08/02/16 20:00 98.2 64 18 150/75 98 08/02/16 18:00 76 08/02/16 17:12 15 08/02/16 16:00 69 08/02/16 16:00 98.0 69 17 153/84 100 08/02/16 14:00 74 08/02/16 12:00 67 08/02/16 12:00 97.2 67 14 164/83 100 08/02/16 10:00 69 08/02/16 09:42 22 (Eugenie Britton) -: 08/03/16 03408/03/16 034 Medication Review Current Medications Medications (Trade) Dose Ordered Sig/Hallie Route Start Time Stop Time Status Last Admin (NS Flush) 2 ml UNSCH PRN IV FLUSH 08/01/16 22:45 (NS Flush) 2 ml BID IV FLUSH 08/02/16 09:00 08/02/16 21:00 (Tylenol) 650 mg Q4H PRN PO 08/01/16 22:45 (Zofran Inj) 4 mg Q6H PRN IVP 08/01/16 22:45 08/02/16 21:45 (Milk Of Magnesia Liq) 30 ml Q12H PRN PO 08/01/16 22:45 Heparin Sodium (Porcine) 5000 units 5,000 units Q12H SQ 08/01/16 23:00 08/02/16 21:45 (Zosyn 2.25 Gm Premix) 50 ml @ 100 mls/hr Q6H IV 08/02/16 04:00 08/03/16 04:54 (D50w (Vial) Inj) 25 ml UNSCH PRN IV PUSH 08/01/16 22:45 Glucagon 1 mg 1 mg UNSCH PRN OTHER 08/01/16 22:45 (Levaquin 500 Mg Premix Inj) 100 ml @ 100 mls/hr Q48H IV 08/01/16 23:00 (Lopressor) 50 mg BID PO 08/02/16 09:00 08/02/16 21:45 (Ecotrin Ec) 81 mg DAILY PO 08/02/16 09:00 08/02/16 09:10 (Buspar) 10 mg BID PO 08/02/16 09:00 08/02/16 21:45 (CeleXA) 20 mg DAILY PO 08/02/16 09:00 08/02/16 09:10 (Protonix Inj) 40 mg Q12H IV PUSH 08/02/16 15:00 08/03/16 04:54 (Dilaudid Pf Inj) 0.2 mg Q3H PRN IV 08/02/16 04:45 08/02/16 09:12 (Dilaudid Pf Inj) 0.5 mg Q3H PRN IV 08/02/16 04:45 08/03/16 05:04 (Dilaudid Pf Inj) 0.5 mg Q3H PRN IV 08/02/16 04:45 (Narcan Inj) 0.4 mg UNSCH PRN IV 08/02/16 04:45 Miscellaneous Information Patient in critical care unit? Ass... Q361D XX 08/02/16 05:00 (Chlorhexidine 2% Cloth) 3 pack DAILY@04 TOPICAL 08/03/16 04:00 08/07/16 04:01 Chlorhexidine Gluconate 3 pack 3 pack UNSCH PRN TOPICAL 08/02/16 05:00 08/07/16 04:58 (NS 1000 ml Inj) 1,000 ml @ 0 mls/hr Q0M PRN IV 08/02/16 08:49 08/02/16 13:03 Heparin Sodium (Porcine) 8000 units 8,000 units UNSCH PRN IVF 08/02/16 09:00 Sodium Chloride 1,000 ml @ 200 mls/hr Q5H PRN IV 08/02/16 08:49 (NS 1000 ml Inj) 1,000 ml @ 0 mls/hr Q0M PRN IV 08/02/16 08:49 (Mannitol Inj) 12.5 gm UNSCH PRN IV 08/02/16 09:00 (Albumin 25% Inj) 25 gm UNSCH PRN IV 08/02/16 09:00 (NS Flush) 5 ml UNSCH PRN IV FLUSH 08/02/16 09:00 (Heparin Inj) UNSCH PRN .XX 08/02/16 09:00 08/02/16 13:03 (Gentamicin (Dialysis) Inj) 20 mg UNSCH PRN IV 08/02/16 09:00 08/02/16 13:03 (Zofran Inj) 4 mg UNSCH PRN IV 08/02/16 09:00 (Tylenol) 650 mg UNSCH PRN PO 08/02/16 09:00 (Benadryl) 25 mg UNSCH PRN PO 08/02/16 09:00 (Nitrostat Sl) 0.4 mg UNSCH PRN SL 08/02/16 09:00 (Catapres) 0.1 mg UNSCH PRN PO 08/02/16 09:00 08/02/16 09:39 (Gelfoam 12 Mm/7 Mm Top) 1 foam UNSCH PRN TOP 08/02/16 09:00 (Apresoline Inj) 20 mg Q4H PRN IV PUSH 08/02/16 09:45 (Urecholine) 10 mg Q8HR PO 08/02/16 14:00 08/03/16 04:54 (Norvasc) 10 mg DAILY PO 08/02/16 16:00 08/02/16 16:42 (Eugenie Britton) Physical Exam General Appearance: No Acute Distress, Comfortable (Eugenie Britton) Neck Neck Exam: Neck Supple, Trachea Midline (Eugenie Britton) Pulmonary Resp Exam: Clear Bilaterally, Breath Sounds Equal (Eugenie Britton) Cardiology CV Exam: Regular, Normal Sinus Rhythm (Eugenie Britton) Gastrointestinal/Abdomen GI Exam: Soft, Non-Tender (Eugenie Britton) Integumentary Skin Exam: Clear, Warm (Eugenie Britton) Extremeties Extremities Exam: No Edema (Eugenie Britton) Neurologic Neuro Exam: Alert, Awake, Oriented (Eugenie Britton) Psychiatric Psych Exam: Appropriate Responses (Eugenie Britton) Assessment/Plan Problem List: (1) ESRD (end stage renal disease) on dialysis Plan: s/p HD yesterday. Will plan on HD in the AM (Sun) and then resume TTS schedule. Medications should be adjusted for the patient's ESRD. Avoid gadolinium as eGFR <30 (2) Intractable nausea and vomiting Plan: Recurrent issue. Failed recent botox injections. Appreciate GI input (3) Sepsis Plan: On abx. BCx pending. BCx neg x24h (4) DM (diabetes mellitus) Plan: Mgmt as per primary (5) HTN (hypertension) Plan: Add po Hydralazine 25mg q8h. (Eugenie Britton) Plan The patient was seen during dialysis today. Dialysis catheter is working well however patient has gram-positive cocci and blood culture 2. Patient not clear for discharge from renal point of view in view of this. Will give a dose of vancomycin 1.5 g today with subsequent 1 g post-each dialysis. If the patient grows staph will have PermCath removed with subsequent replacement when blood cultures are negative with a PermCath or if required a Vas-Cath pending clearing. Unfortunately patient's AV fistula creation was delayed secondary to multiple recurrent admissions and the patient canceling appointments with vascular surgery. He was questioning whether the fistula could be performed at this time however in view of positive blood cultures I advised him that we could not. It is noted infectious disease has been counseled.. (David Kennedy MD) Eugenie Britton Aug 03, 2016 08:33 David Kennedy MD Aug 03, 2016 18:28
[2016-08-03] MEDS: METOPROLOL TARTRATE 50 MG TAB PO SCH ×2 (08:35→22:15)
[2016-08-03] MEDS: busPIRone HCL 10 MG TAB PO SCH ×2 (08:35→22:15)
[2016-08-03] MEDS: CITALOPRAM HYDROBROMIDE 20 MG TAB PO SCH (08:35)
[2016-08-03] MEDS: ASPIRIN EC 81 MG TABEC PO SCH (08:35)
[2016-08-03] MEDS: SODIUM CHLORIDE 0.9% FLUSH 10 ML FLUSH IV FLUSH SCH ×2 (09:00→21:00)
[2016-08-03] MEDS: HEPARIN SODIUM - SQ 10,000 UNITS/ML VIAL SQ SCH ×2 (11:00→22:15)
[2016-08-03] MEDS ORDERED: Vancomycin Consult Pharmacy 1 EA OTHER SCH (11:45)
[2016-08-03] MEDS ORDERED: VANCOMYCIN INJ 1,000 MG in SODIUM CHLOR 0.9% 250 ML INJ 250 ML IV ONE (11:45)
--- NOTE | 2016-08-03 12:27 | HHI.PR ---
Subjective Remarks f/u nausea/vomiting, abdominal pain and sepsis. Patient stated that he does feel nauseous but denies any vomiting. Deny any abdominal pain. Patient stated that he is chronic lower extremity pain due to his neuropathy but this has not been changed. Otherwise remains afebrile has no other complaints. Objective Vitals Vital Signs Date Time Temp Pulse Resp B/P Pulse Ox O2 Delivery O2 Flow Rate FiO2 08/03/16 08:00 68 08/03/16 06:00 64 08/03/16 04:00 64 08/03/16 04:00 98.6 64 18 150/75 98 08/03/16 02:00 64 08/03/16 00:00 63 08/03/16 00:00 98.4 63 13 149/71 99 08/02/16 22:00 72 08/02/16 20:00 72 08/02/16 20:00 98.2 64 18 150/75 98 08/02/16 18:00 76 08/02/16 17:12 15 08/02/16 16:00 69 08/02/16 16:00 98.0 69 17 153/84 100 08/02/16 14:00 74 I/O 08/02/16 08/02/16 08/02/16 08/03/16 08/03/16 08/03/16 07:00 15:00 23:00 07:00 15:00 23:00 Intake Total 1413 ml 177 ml 163 ml Output Total 200 ml 1050 ml 225 ml Balance 1213 ml -873 ml -62 ml Intake Oral 750 ml 75 ml 50 ml IV Total 663 ml 102 ml 113 ml Output Urine Total 200 ml 50 ml 50 ml Stool Total 175 ml Hemodialysis 1000 ml Result Diagram: 08/03/16 0343 08/03/16 0343 Objective Remarks GENERAL: in NAD CARDIOVASCULAR: Regular rate and rhythm without murmurs, gallops, or rubs. Other in place on right side of the chest. Dry clean and intact no erythema noted. RESPIRATORY: Breath sounds equal bilaterally. No accessory muscle use. GASTROINTESTINAL: Abdomen soft, non-tender, nondistended. MUSCULOSKELETAL: No cyanosis, or edema. BACK: Nontender without obvious deformity. No CVA tenderness. Medications and IVs Current Medications Ondansetron HCl 4 mg 4 mg ONCE ONCE IV Last administered on 08/01/16t 21:08; Start 08/01/16 at 20:45; Stop 08/01/16 at 20:46; Status DC Sodium Chloride (NS 250 ml Inj) 250 ml @ 250 mls/hr BOLUS ONCE IV Last administered on 08/01/16 21:08; Start 08/01/16 at 20:45; Stop 08/01/16 at 21:44 ; Status DC Morphine Sulfate 2 mg 2 mg ONCE ONCE IV PUSH Last administered on 08/01/16 21 :28; Start 08/01/16 at 21:00; Stop 08/01/16 at 21:02; Status DC Piperacillin Sod/ Tazobactam Sod 50 ml @ 100 mls/hr ONCE ONCE IV Last administered on 08/01/16 23:07; Start 08/01/16 at 22:15; Stop 08/01/16 at 22:44 ; Status DC Vancomycin HCl/ Sodium Chloride (Vancomycin Inj/ NS 250 ml Inj) 250 ml @ 250 mls/hr ONCE ONCE IV Last administered on 08/01/16 23:55; Start 08/01/16 at 22 :15; Stop 08/01/16 at 23:14; Status DC Sodium Polystyrene Sulfonate 15 gm 15 gm ONCE ONCE PO Last administered on 23:55; Start 08/01/16 at 22:15; Stop 08/01/16 at 22:16; Status DC Sodium Chloride (NS 500 ml Inj) 500 ml @ 500 mls/hr BOLUS ONCE IV Last administered on 08/01/16 23:06; Start 08/01/16 at 22:15; Stop 08/01/16 at 23:14 ; Status DC Sodium Chloride (NS Flush) 2 ml UNSCH PRN IV FLUSH FLUSH AFTER USING IV ACCESS ; Start 08/01/16 at 22:45 Sodium Chloride (NS Flush) 2 ml BID IV FLUSH Last administered on 08/03/16 09: 00; Start 08/02/16 at 09:00 Acetaminophen (Tylenol) 650 mg Q4H PRN PO TEMP > 100.4; Start 08/01/16 at 22:45 Ondansetron HCl (Zofran Inj) 4 mg Q6H PRN IVP NAUSEA OR VOMITING Last administered on 08/02/16 21:45; Start 08/01/16 at 22:45 Magnesium Hydroxide (Milk Of Magnesia Liq) 30 ml Q12H PRN PO CONSTIPATION; Start 08/01/16 at 22:45 Heparin Sodium (Porcine) (Heparin Inj) 5,000 units Q12H SQ Last administered on 08/02/16 21:45; Start 08/01/16 at 23:00 Naloxone HCl 0.4 mg 0.4 mg UNSCH PRN IV SEE LABEL COMMENTS; Start 08/01/16 at 22:45; Stop 08/02/16 at 09:48; Status DC Pharmacy Profile Note 0 ml @ 0 mls/hr UNSCH OTHER ; Start 08/01/16 at 22:45; Stop 08/01/16 at 22:54; Status DC Piperacillin Sod/ Tazobactam Sod 50 ml @ 100 mls/hr Q6H IV Last administered on 08/03/16 08:35; Start 08/02/16 at 04:00 Levofloxacin/ Dextrose (Levaquin 750 Mg Premix Inj) 150 ml @ 100 mls/hr ONCE ONCE IV Last administered on 08/02/16 01:00; Start 08/01/16 at 23:00; Stop at 00:29; Status DC Dextrose (D50w (Vial) Inj) 25 ml UNSCH PRN IV PUSH HYPOGLYCEMIA-SEE COMMENTS; Start 08/01/16 at 22:45 Glucagon (Glucagon Inj) 1 mg UNSCH PRN OTHER HYPOGLYCEMIA-SEE COMMENTS; Start 08/01/16 at 22:45 Insulin Aspart 1 1 ACHS SLIDING SCALE SQ ; Start 08/02/16 at 07:00 Thiamine HCl 100 mg/Sodium Chloride 101 ml @ 101 mls/hr ONCE ONCE IV Last administered on 08/02/16 05:00; Start 08/01/16 at 23:00; Stop 08/01/16 at 23:59 ; Status DC Levofloxacin/ Dextrose (Levaquin 500 Mg Premix Inj) 100 ml @ 100 mls/hr Q48H IV ; Start 08/01/16 at 23:00 Metoprolol Tartrate 50 mg 50 mg BID PO Last administered on 08/03/16 08:35; Start 08/02/16 at 09:00 Pharmacy Profile Note (Vancomycin Consult Pharmacy) 0 ml @ 0 mls/hr UNSCH OTHER ; Start 08/02/16 at 03:15; Status UNV Pantoprazole Sodium (Protonix Inj) 40 mg ONCE ONCE IV PUSH Last administered on 08/02/16 03:15; Start 08/02/16 at 03:15; Stop 08/02/16 at 03:28; Status DC Pantoprazole Sodium (Protonix Inj) 40 mg Q12H IV PUSH ; Start 08/02/16 at 03:15 ; Status UNV Aspirin (Ecotrin Ec) 162 mg ONCE ONCE PO ; Start 08/02/16 at 03:15; Stop at 03:30; Status DC Aspirin (Ecotrin Ec) 81 mg DAILY PO Last administered on 08/03/16 08:35; Start 08/02/16 at 09:00 Bethanechol Chloride (Urecholine) 25 mg Q8HR PRN PO pain; Start 08/02/16 at 03: 15; Stop 08/02/16 at 11:05; Status DC Bumetanide (Bumetanide) 2 mg DAILY PO ; Start 08/02/16 at 09:00; Stop 08/02/16 at 09:00; Status DC Buspirone HCl (Buspar) 10 mg BID PO Last administered on 08/03/16 08:35; Start 08/02/16 at 09:00 Citalopram Hydrobromide (CeleXA) 20 mg DAILY PO Last administered on 08/03/16 08:35; Start 08/02/16 at 09:00 Pantoprazole Sodium (Protonix Inj) 40 mg Q12H IV PUSH Last administered on 08/03 04:54; Start 08/02/16 at 15:00 Acetaminophen 650 mg 650 mg ONCE ONCE PO ; Start 08/02/16 at 03:45; Stop at 03:46; Status DC Sodium Chloride (NS 1000 ml Inj) 1,000 ml @ 999 mls/hr BOLUS ONCE IV Last administered on 08/02/16 03:45; Start 08/02/16 at 03:45; Stop 08/02/16 at 04:45 ; Status DC Sodium Bicarbonate (Sodium Bicarbonate) 650 mg ONCE ONCE PO Last administered on 08/02/16 03:45; Start 08/02/16 at 03:45; Stop 08/02/16 at 03:50; Status DC Hydromorphone HCl (Dilaudid Pf Inj) 0.2 mg Q3H PRN IV Pain 3-5; if unable to take PO Last administered on 08/02/16 09:12; Start 08/02/16 at 04:45 Hydromorphone HCl (Dilaudid Pf Inj) 0.5 mg Q3H PRN IV Pain 6-10;if unable to take PO Last administered on 08/03/16 05:04; Start 08/02/16 at 04:45 Hydromorphone HCl (Dilaudid Pf Inj) 0.5 mg Q3H PRN IV BREAKTHROUGH PAIN; Start 08/02/16 at 04:45 Naloxone HCl (Narcan Inj) 0.4 mg UNSCH PRN IV SEE LABEL COMMENTS; Start at 04:45 Miscellaneous Information Patient in critical care unit? Ass... Q361D XX ; Start 08/02/16 at 05:00 Chlorhexidine Gluconate (Chlorhexidine 2% Cloth) 3 pack DAILY@04 TOPICAL ; Start 08/03/16 at 04:00; Stop 08/07/16 at 04:01 Chlorhexidine Gluconate 3 pack 3 pack UNSCH PRN TOPICAL HYGIENIC CARE; Start at 05:00; Stop 08/07/16 at 04:58 Sodium Chloride (NS 1000 ml Inj) 1,000 ml @ 0 mls/hr Q0M PRN IV For Prime & Rinse Back Last administered on 08/02/16 13:03; Start 08/02/16 at 08:49 Heparin Sodium (Porcine) 8000 units 8,000 units UNSCH PRN IVF WITH DIALYSIS; Start 08/02/16 at 09:00 Sodium Chloride 1,000 ml @ 200 mls/hr Q5H PRN IV WITH DIALYSIS; Start 08/02/16 at 08:49 Sodium Chloride (NS 1000 ml Inj) 1,000 ml @ 0 mls/hr Q0M PRN IV WITH DIALYSIS; Start 08/02/16 at 08:49 Mannitol (Mannitol Inj) 12.5 gm UNSCH PRN IV WITH DIALYSIS; Start 08/02/16 at 09:00 Albumin Human (Albumin 25% Inj) 25 gm UNSCH PRN IV WITH DIALYSIS; Start at 09:00 Sodium Chloride (NS Flush) 5 ml UNSCH PRN IV FLUSH WITH DIALYSIS; Start at 09:00 Heparin Sodium (Porcine) (Heparin Inj) UNSCH PRN .XX WITH DIALYSIS Last administered on 08/02/16 13:03; Start 08/02/16 at 09:00 Gentamicin Sulfate (Gentamicin (Dialysis) Inj) 20 mg UNSCH PRN IV WITH DIALYSIS Last administered on 08/02/16 13:03; Start 08/02/16 at 09:00 Ondansetron HCl (Zofran Inj) 4 mg UNSCH PRN IV WITH DIALYSIS Last administered on 08/03/16 09:02; Start 08/02/16 at 09:00 Acetaminophen (Tylenol) 650 mg UNSCH PRN PO for headach, pain, temp > 101F; Start 08/02/16 at 09:00 Diphenhydramine HCl (Benadryl) 25 mg UNSCH PRN PO for hives/itching/anaphylaxis ; Start 08/02/16 at 09:00 Nitroglycerin (Nitrostat Sl) 0.4 mg UNSCH PRN SL CHEST PAIN; Start 08/02/16 at 09:00 Clonidine (Catapres) 0.1 mg UNSCH PRN PO for BP > 180/100 X 2 readings Last administered on 08/02/16 09:39; Start 08/02/16 at 09:00 Gelatin (Gelfoam 12 Mm/7 Mm Top) 1 foam UNSCH PRN TOP SEE LABEL COMMENTS; Start 08/02/16 at 09:00 Hydralazine HCl (Apresoline Inj) 20 mg Q4H PRN IV PUSH SYS BP GREATER THAN 180 MMHG; Start 08/02/16 at 09:45 Bethanechol Chloride (Urecholine) 10 mg Q8HR PO Last administered on 08/03/16 04:54; Start 08/02/16 at 14:00 Amlodipine Besylate (Norvasc) 10 mg DAILY PO Last administered on 08/03/16 08: 35; Start 08/02/16 at 16:00 Hydralazine HCl 25 mg 25 mg Q8HR PO ; Start 08/03/16 at 14:00 Vancomycin HCl 1000 mg/Sodium Chloride 250 ml @ 250 mls/hr ONCE ONCE IV ; Start 08/03/16 at 11:45; Stop 08/03/16 at 12:44; Status UNV Pharmacy Profile Note (Vancomycin Consult Pharmacy) 0 ml @ 0 mls/hr UNSCH OTHER ; Start 08/03/16 at 11:45 A/P Assessment and Plan Bacteremia -Positive cultures for gram-positive cocci pending culture sensitivity. -on Zosyn, Levaquin. Vancomycin was discontinued last night will restart. Have pharmacy dose it. -Repeat blood cultures X 2. -Once blood cultures are negative for 48 hours will need to replace the vasc catheter. -Consult infectious disease. Sepsis, Tachycardia, Leukocytosis. -Due to bacteremia. Most likely vasc catheter is the source. -Lactate elevated at 6, however subsequently improved. -UA negative. -Chest x-ray with no acute finding. -Continue antibiotics as above. History of gastroparesis s/p botox injection on 07/26/16 -symptoms IMPROVED. -GI consulted and ff. -Change bethanechol to 10 mg by mouth 3 times a day - Continue IV fluid - Continue PPI - Continue Zofran when necessary Abdominal pain. -due to gastroparesis. RESOLVED. -CT abdomen showed small hernia with loops of small bowel in the left inguinal canal, however no obstruction. Recent injections of pyloric sphincter. End-stage renal disease. On hemodialysis nephrology consulted and ff. Depression. - Chronic. Continue home medications Hyperkalemia. -IMPROVED. - Likely secondary to lactic acidosis. Expect to improve with treatment of sepsis. -Patient was given Kayexalate in the ER. - Follow-up electrolytes. Nephrology consulted. Appreciate assistance. Hypertension. -Chronic. -Continue home medication. Urinary retention. -Continue bethanechol Discharge Planning Patient is bacteremic. Blood cultures repeated today and must be negative for growth for at least 48 hours before catheter can be replaced. Inga Reid MD Aug 03, 2016 12:27
[2016-08-03] MEDS: hydrALAZINE HCL 25 MG TAB PO SCH ×2 (14:00→22:15)
--- NOTE | 2016-08-03 15:49 | HHI.GIFU ---
Subjective Remarks Seen in HD. Doing well. States he is tolerating his diet. Denies any nausea, vomiting, abdominal pain. (Mya Christian) Objective Vitals I&O Vital Signs Date Time Temp Pulse Resp B/P Pulse Ox O2 Delivery O2 Flow Rate FiO2 08/03/16 14:09 100 21 08/03/16 08:00 68 08/03/16 06:00 64 08/03/16 04:00 64 08/03/16 04:00 98.6 64 18 150/75 98 08/03/16 02:00 64 08/03/16 00:00 63 08/03/16 00:00 98.4 63 13 149/71 99 08/02/16 22:00 72 08/02/16 20:00 72 08/02/16 20:00 98.2 64 18 150/75 98 08/02/16 18:00 76 08/02/16 17:12 15 08/02/16 16:00 69 08/02/16 16:00 98.0 69 17 153/84 100 I/O 08/02/16 08/02/16 08/02/16 08/03/16 08/03/16 08/03/16 07:00 15:00 23:00 07:00 15:00 23:00 Intake Total 1413 ml 177 ml 163 ml Output Total 200 ml 1050 ml 225 ml Balance 1213 ml -873 ml -62 ml Intake Oral 750 ml 75 ml 50 ml IV Total 663 ml 102 ml 113 ml Output Urine Total 200 ml 50 ml 50 ml Stool Total 175 ml Hemodialysis 1000 ml Laboratory Laboratory Tests Test 08/02/16 08/03/16 08/03/16 22:20 03:43 05:45 Lactic Acid Level 1.1 White Blood Count 9.9 Red Blood Count 3.46 Hemoglobin 10.0 Hematocrit 29.5 Mean Corpuscular Volume 85.2 Mean Corpuscular Hemoglobin 28.9 Mean Corpuscular Hemoglobin 33.9 Concent Red Cell Distribution Width 13.6 Platelet Count 173 Mean Platelet Volume 9.1 Sodium Level 141 Potassium Level 3.8 Chloride Level 101 Carbon Dioxide Level 32.2 Anion Gap 8 Blood Urea Nitrogen 22 Creatinine 4.08 Estimat Glomerular Filtration 15 Rate Random Glucose 85 Calcium Level 8.7 Phosphorus Level 3.3 Albumin 2.9 Stool C. difficile Toxin (PCR) NEGATIVE Stl C. difficile Toxin PRESUMPTIVE Epiderm 027 NEGATIVE Date/Time Procedure Status Source Growth 08/03/16 12:45 Aerobic Blood Culture Received Blood Peripheral Pending 08/03/16 12:45 Anaerobic Blood Culture Received Blood Peripheral Pending 08/01/16 21:00 Aerobic Blood Culture - Preliminary Resulted Blood Peripheral Staph Sp Coagulase Negative 08/01/16 21:00 Anaerobic Blood Culture - Preliminary Resulted Gram Positive Cocci Imaging Last Impressions Abdomen/Pelvis CT 08/01/162224 Signed Impressions: Service Date/Time: Monday, August 01, 2016 22:50 - CONCLUSION: 1. Left-sided inguinal hernia containing a loop of small bowel and fluid in the left inguinal canal. However no evidence for small bowel obstruction. 2. Right-sided colostomy. 3. Renal cortical atrophy with stable renal calcifications and exophytic cysts. 4. Hiatal hernia. Eduardo Cano MD Chest X-Ray 08/01/162030 Signed Impressions: Service Date/Time: Monday, August 01, 2016 20:57 - CONCLUSION: 1. No acute cardiopulmonary disease. Samuel Ward MD Physical Exam HEENT: Normocephalic; atraumatic; no jaundice. CHEST: CTA CARDIAC: RRR ABDOMEN: Soft, nondistended, nontender; no hepatosplenomegaly; bowel sounds are present in all four quadrants. EXTREMITIES: No clubbing, cyanosis, or edema. SKIN: Normal; no rash; no jaundice. [employer]IV[employer] CLERK: No focal deficits; alert and oriented times three. (Mya Christian [facility]) Assessment and Plan Plan ASSESSMENT: - Intractable nausea and vomiting, gastroparesis. S/P EGD with Botox injections (07/26/16) and this revealed duodenitis and the second portion, gastritis in the antrum, esophagitis/stricture distal esophagus, old PEG site and gastric body, Botox 100 units and pyloric channel 25 units in each quadrant injected, and dilatation savory 12.8, 14, retroflex views revealed a hiatal hernia. He was also treated with bethanechol during this hospitalization, his symptoms improved and he was discharged home on PPI and Zofran per patient. He started having nausea/vomiting with Undigested food on Sunday and returned to the ER. He is currently being treated with IV fluids, PPI, Zofran when necessary. He is getting Bethanechol 10 mg by mouth 3 times a day, as this seemed to help during his last hospitalization. He is now asymptomatic and tolerating his diet. PLAN: - Renal diet as tolerated - Cont. bethanechol to 10 mg by mouth 3 times a day - Continue PPI - Continue Zofran when necessary - Supportive care - Patient seen and examined by Dr. Forbes and myself and this note is written on his behalf (Mya Christian) Physician Comments Patient seen and examined Agree with above Continue with current supportive care Monitor labs Patient appears to be responding to bethanechol Not much to add from a GI perspective at this point We will sign off (Randy Forbes MD) Mya Christian Aug 03, 2016 15:48 Randy Forbes MD Aug 03, 2016 18:10
[2016-08-03] MEDS ORDERED: VANCOMYCIN INJ 1,000 MG in SODIUM CHLOR 0.9% 250 ML INJ 250 ML IV SCH (18:30)
[2016-08-03] MEDS ORDERED: VANCOMYCIN INJ 1,500 MG in SODIUM CHLORID 0.9% 500 ML INJ 500 ML IV ONE (20:00)
--- NOTE | 2016-08-03 21:52 | MB ---
cc: MATT GARCÍA MD DATE OF CONSULTATION 08/03/[address] Reid REASON FOR CONSULTATION A 56 year old male end-stage renal disease and gastroparesis presented with abdominal pain and sepsis and found to be bacteremic. HISTORY OF PRESENT ILLNESS This is a 56 year old white male who presented to the hospital on August 01. He was evaluated in the ED for chills, intermittent sweats after he had upper endoscopy with biopsies and Botox injection for upper abdominal pain and gastroparesis. On presentation, he was tachycardiac and had white blood cell count of 23.5. He also had elevated lactic acid level of 6.1. The patient was admitted and blood cultures were taken. The blood culture has gram-positive cocci in all four bottles from 09/01. One bottle is identified as staph coagulase negative. He has been receiving intravenous antibiotics with vancomycin given with dialysis. His white blood cell count has improved. Currently, he feels okay. He notes that he has chronic neuropathic pain. The patient has a dialysis Perma-Cath in the right upper chest. He states that this has been in place for about a year. He was recently in the hospital on June 22 and he had one positive blood culture with staph capitis. There was no source for the sepsis. PAST MEDICAL HISTORY 1. Hypertension, 2. Gastroparesis, 3. Anxiety, depression, 4. End-stage renal disease dialysis dependent 5. Diabetes mellitus 6. Colectomy, 7. Colostomy 8. Cardiac stent 9. Left upper extremity AV fistula ALLERGIES NO KNOWN DRUG ALLERGIES. MEDICATIONS 1. Vancomycin. 2. Piperacillin/tazobactam 3. Levaquin. 4. Alprazolam 5. Norvasc. 6. Protonix. 7. Lopressor. 8. Ecotrin. 9. BuSpar. 10. Celexa. SOCIAL HISTORY The patient smokes half-a-pack of cigarettes a day. No alcohol. No illicit drugs. FAMILY HISTORY Noncontributory. REVIEW OF SYSTEMS Significant for neuropathic pain in the extremities. Otherwise, negative on 10-point review. PHYSICAL EXAMINATION GENERAL: This is a slender male who is in no acute distress. He is awake and alert and oriented. VITAL SIGNS: Temperature 97.2, BP 127/79, respirations 16, heart rate 72. HEENT: Extraocular movements grossly intact, pupils reactive to light. No icterus. Oropharynx no visible lesions. Mucosa is moist. NECK: Supple. No adenopathy. No swelling. LUNGS: Slight rhonchi at the bases. HEART: Regular rate and rhythm without murmurs, rubs or gallops. CHEST: The patient has a Perma-Cath dialysis catheter in the right upper chest. There is no visible signs of infection at the entry. ABDOMEN: Bowel sounds present, soft, nontender. RECTAL: Not performed. EXTREMITIES: No clubbing or cyanosis or edema. 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 The wound is intact. NEUROLOGIC: No gross focal findings. SKIN: No rash. PSYCHIATRIC: The patient is calm and cooperative. LABORATORY DATA WBC 9.9, platelets 173, creatinine 4.08, BUN 22, sodium 141 IMPRESSION 1. Bacteremia due to staph coagulase negative. 2. End-stage renal disease on hemodialysis in patient who has a Perma-Cath in the right upper chest. Possible source of bacteremia. 3. Leukocytosis, improved. RECOMMENDATIONS 1. Continue vancomycin with dialysis for treatment of the bacteremia. 2. Discontinue piperacillin/Tazobactam 3. Discontinue Levaquin 4. Monitor repeat blood cultures obtained today. 5. If the repeat blood cultures are positive consider removing the Perma-Cath 6. Monitor clinical status Thank you for this consultation. The patient's progress will be monitored and further recommendations will be given on followup. Matt García MD FD/ /7:25 PM /9:25 PM JUNIOR
[2016-08-04] VITALS (14 sets, daily range): BP systolic 126–196; BP diastolic 72–94; PULSE 59–77; RESP 12–20; TEMP 98–98.9; O2SAT 99–100
[2016-08-04] MEDS: HYDROmorphone HCL PF 1 MG/ML VIAL IV PRN ×4 (00:22→10:01)
[2016-08-04] MEDS: PANTOPRAZOLE SODIUM 40 MG VIAL IV PUSH SCH ×2 (03:46→13:26)
[2016-08-04] MEDS: CHLORHEXIDINE GLUCONATE 2 % 1 PACK (2 CLOTHS)(taper/protocol) TOPICAL SCH (03:46)
[2016-08-04 05:25] LABS: BICARBONATE 33.1 MEQ/L (21.0-32.0); POTASSIUM 3.2 MEQ/L (3.5-5.1)
[2016-08-04 05:29] LABS: HEMATOCRIT 29.7 % (39.0-51.0); MEAN CELL VOLUME 85.7 FL (80.0-100.0); MEAN CORPUSCULAR HEMOGLOBIN 29.3 PG (27.0-34.0); MEAN CORPUSCULAR HGB CONC 34.2 % (32.0-36.0); PLATELET COUNT 173 TH/MM3 (150-450); RED BLOOD COUNT 3.46 MIL/MM3 (4.50-5.90); RED CELL DISTRIBUTION WIDTH 13.3 % (11.6-17.2); REVIEW FLAG FINAL; WHITE BLOOD COUNT 8.5 TH/MM3 (4.0-11.0)
[2016-08-04] MEDS: hydrALAZINE HCL 25 MG TAB PO SCH ×3 (05:39→21:42)
[2016-08-04] MEDS: BETHANECHOL CHL 10 MG TAB PO SCH ×3 (05:39→21:42)
[2016-08-04] MEDS: INSULIN ASPART SUPPLEMENTAL SCALE SQ SCH ×4 (06:55→19:51)
[2016-08-04] MEDS: METOPROLOL TARTRATE 50 MG TAB PO SCH ×2 (08:45→19:49)
[2016-08-04] MEDS: CITALOPRAM HYDROBROMIDE 20 MG TAB PO SCH (08:45)
[2016-08-04] MEDS: SODIUM CHLORIDE 0.9% FLUSH 10 ML FLUSH IV FLUSH SCH ×2 (08:45→19:50)
[2016-08-04] MEDS: ASPIRIN EC 81 MG TABEC PO SCH (08:45)
[2016-08-04] MEDS: busPIRone HCL 10 MG TAB PO SCH ×2 (08:45→19:49)
--- NOTE | 2016-08-04 10:25 | HHI.PR ---
Subjective Remarks Follow-up for bacteremia. Patient has no concerns. Deny any nausea vomiting or abdominal pain. Per patient's nurse patient is asking for Dilaudid for his chronic back pain. Otherwise no issues. Objective Vitals Vital Signs Date Time Temp Pulse Resp B/P Pulse Ox O2 Delivery O2 Flow Rate FiO2 08/04/16 08:05 100 21 08/04/16 07:25 20 08/04/16 06:00 60 08/04/16 04:00 61 08/04/16 04:00 98.9 61 20 166/82 99 08/04/16 02:00 61 08/04/16 00:00 98.0 63 18 163/79 99 08/04/16 00:00 63 08/03/16 22:00 66 08/03/16 20:00 69 08/03/16 20:00 97.8 76 20 99/79 99 08/03/16 18:00 72 08/03/16 16:00 97.2 76 18 126/79 97 08/03/16 14:09 100 21 08/03/16 14:00 76 08/03/16 12:00 70 I/O 08/03/16 08/03/16 08/03/16 08/04/16 08/04/16 08/04/16 07:00 15:00 23:00 07:00 15:00 23:00 Intake Total 163 ml 1043 ml 525 ml Output Total 225 ml 440 ml 150 ml Balance -62 ml 603 ml 375 ml Intake Oral 50 ml 720 ml 240 ml IV Total 113 ml 323 ml 285 ml Output Urine Total 50 ml 90 ml 50 ml Stool Total 175 ml 350 ml 100 ml Result Diagram: 08/04/16 0437 08/04/16 043 Objective Remarks GENERAL: in NAD CARDIOVASCULAR: Regular rate and rhythm without murmurs, gallops, or rubs. Other in place on right side of the chest. Dry clean and intact no erythema noted. RESPIRATORY: Breath sounds equal bilaterally. No accessory muscle use. GASTROINTESTINAL: Abdomen soft, non-tender, nondistended. MUSCULOSKELETAL: No cyanosis, or edema. BACK: Nontender without obvious deformity. No CVA tenderness. Medications and IVs Current Medications Ondansetron HCl 4 mg 4 mg ONCE ONCE IV Last administered on 08/01/16t 21:08; Start 08/01/16 at 20:45; Stop 08/01/16 at 20:46; Status DC Sodium Chloride (NS 250 ml Inj) 250 ml @ 250 mls/hr BOLUS ONCE IV Last administered on 08/01/16 21:08; Start 08/01/16 at 20:45; Stop 08/01/16 at 21:44 ; Status DC Morphine Sulfate 2 mg 2 mg ONCE ONCE IV PUSH Last administered on 08/01/16 21 :28; Start 08/01/16 at 21:00; Stop 08/01/16 at 21:02; Status DC Piperacillin Sod/ Tazobactam Sod 50 ml @ 100 mls/hr ONCE ONCE IV Last administered on 08/01/16 23:07; Start 08/01/16 at 22:15; Stop 08/01/16 at 22:44 ; Status DC Vancomycin HCl/ Sodium Chloride (Vancomycin Inj/ NS 250 ml Inj) 250 ml @ 250 mls/hr ONCE ONCE IV Last administered on 08/01/16 23:55; Start 08/01/16 at 22 :15; Stop 08/01/16 at 23:14; Status DC Sodium Polystyrene Sulfonate 15 gm 15 gm ONCE ONCE PO Last administered on 23:55; Start 08/01/16 at 22:15; Stop 08/01/16 at 22:16; Status DC Sodium Chloride (NS 500 ml Inj) 500 ml @ 500 mls/hr BOLUS ONCE IV Last administered on 08/01/16 23:06; Start 08/01/16 at 22:15; Stop 08/01/16 at 23:14 ; Status DC Sodium Chloride (NS Flush) 2 ml UNSCH PRN IV FLUSH FLUSH AFTER USING IV ACCESS ; Start 08/01/16 at 22:45 Sodium Chloride (NS Flush) 2 ml BID IV FLUSH Last administered on 08/04/16 08: 45; Start 08/02/16 at 09:00 Acetaminophen (Tylenol) 650 mg Q4H PRN PO TEMP > 100.4; Start 08/01/16 at 22:45 Ondansetron HCl (Zofran Inj) 4 mg Q6H PRN IVP NAUSEA OR VOMITING Last administered on 08/02/16 21:45; Start 08/01/16 at 22:45 Magnesium Hydroxide (Milk Of Magnesia Liq) 30 ml Q12H PRN PO CONSTIPATION; Start 08/01/16 at 22:45 Heparin Sodium (Porcine) (Heparin Inj) 5,000 units Q12H SQ Last administered on 08/03/16 22:15; Start 08/01/16 at 23:00 Naloxone HCl 0.4 mg 0.4 mg UNSCH PRN IV SEE LABEL COMMENTS; Start 08/01/16 at 22:45; Stop 08/02/16 at 09:48; Status DC Pharmacy Profile Note 0 ml @ 0 mls/hr UNSCH OTHER ; Start 08/01/16 at 22:45; Stop 08/01/16 at 22:54; Status DC Piperacillin Sod/ Tazobactam Sod 50 ml @ 100 mls/hr Q6H IV Last administered on 08/03/16 17:33; Start 08/02/16 at 04:00; Stop 08/03/16 at 19:34; Status DC Levofloxacin/ Dextrose (Levaquin 750 Mg Premix Inj) 150 ml @ 100 mls/hr ONCE ONCE IV Last administered on 08/02/16 01:00; Start 08/01/16 at 23:00; Stop at 00:29; Status DC Dextrose (D50w (Vial) Inj) 25 ml UNSCH PRN IV PUSH HYPOGLYCEMIA-SEE COMMENTS; Start 08/01/16 at 22:45 Glucagon (Glucagon Inj) 1 mg UNSCH PRN OTHER HYPOGLYCEMIA-SEE COMMENTS; Start 08/01/16 at 22:45 Insulin Aspart 1 1 ACHS SLIDING SCALE SQ ; Start 08/02/16 at 07:00 Thiamine HCl 100 mg/Sodium Chloride 101 ml @ 101 mls/hr ONCE ONCE IV Last administered on 08/02/16 05:00; Start 08/01/16 at 23:00; Stop 08/01/16 at 23:59 ; Status DC Levofloxacin/ Dextrose (Levaquin 500 Mg Premix Inj) 100 ml @ 100 mls/hr Q48H IV ; Start 08/01/16 at 23:00; Stop 08/03/16 at 19:34; Status DC Metoprolol Tartrate 50 mg 50 mg BID PO Last administered on 08/04/16 08:45; Start 08/02/16 at 09:00 Pharmacy Profile Note (Vancomycin Consult Pharmacy) 0 ml @ 0 mls/hr UNSCH OTHER ; Start 08/02/16 at 03:15; Status UNV Pantoprazole Sodium (Protonix Inj) 40 mg ONCE ONCE IV PUSH Last administered on 08/02/16 03:15; Start 08/02/16 at 03:15; Stop 08/02/16 at 03:28; Status DC Pantoprazole Sodium (Protonix Inj) 40 mg Q12H IV PUSH ; Start 08/02/16 at 03:15 ; Status UNV Aspirin (Ecotrin Ec) 162 mg ONCE ONCE PO ; Start 08/02/16 at 03:15; Stop at 03:30; Status DC Aspirin (Ecotrin Ec) 81 mg DAILY PO Last administered on 08/04/16 08:45; Start 08/02/16 at 09:00 Bethanechol Chloride (Urecholine) 25 mg Q8HR PRN PO pain; Start 08/02/16 at 03: 15; Stop 08/02/16 at 11:05; Status DC Bumetanide (Bumetanide) 2 mg DAILY PO ; Start 08/02/16 at 09:00; Stop 08/02/16 at 09:00; Status DC Buspirone HCl (Buspar) 10 mg BID PO Last administered on 08/04/16 08:45; Start 08/02/16 at 09:00 Citalopram Hydrobromide (CeleXA) 20 mg DAILY PO Last administered on 08/04/16 08:45; Start 08/02/16 at 09:00 Pantoprazole Sodium (Protonix Inj) 40 mg Q12H IV PUSH Last administered on 08/04 03:46; Start 08/02/16 at 15:00 Acetaminophen 650 mg 650 mg ONCE ONCE PO ; Start 08/02/16 at 03:45; Stop at 03:46; Status DC Sodium Chloride (NS 1000 ml Inj) 1,000 ml @ 999 mls/hr BOLUS ONCE IV Last administered on 08/02/16 03:45; Start 08/02/16 at 03:45; Stop 08/02/16 at 04:45 ; Status DC Sodium Bicarbonate (Sodium Bicarbonate) 650 mg ONCE ONCE PO Last administered on 08/02/16 03:45; Start 08/02/16 at 03:45; Stop 08/02/16 at 03:50; Status DC Hydromorphone HCl (Dilaudid Pf Inj) 0.2 mg Q3H PRN IV Pain 3-5; if unable to take PO Last administered on 08/02/16 09:12; Start 08/02/16 at 04:45 Hydromorphone HCl (Dilaudid Pf Inj) 0.5 mg Q3H PRN IV Pain 6-10;if unable to take PO Last administered on 08/04/16 10:01; Start 08/02/16 at 04:45 Hydromorphone HCl (Dilaudid Pf Inj) 0.5 mg Q3H PRN IV BREAKTHROUGH PAIN; Start 08/02/16 at 04:45 Naloxone HCl (Narcan Inj) 0.4 mg UNSCH PRN IV SEE LABEL COMMENTS; Start at 04:45 Miscellaneous Information Patient in critical care unit? Ass... [id number] ; Start 08/02/16 at 05:00 Chlorhexidine Gluconate (Chlorhexidine 2% Cloth) 3 pack DAILY@04 TOPICAL Last administered on 08/04/16 03:46; Start 08/03/16 at 04:00; Stop 08/07/16 at 04:01 Chlorhexidine Gluconate 3 pack 3 pack UNSCH PRN TOPICAL HYGIENIC CARE; Start at 05:00; Stop 08/07/16 at 04:58 Sodium Chloride (NS 1000 ml Inj) 1,000 ml @ 0 mls/hr Q0M PRN IV For Prime & Rinse Back Last administered on 08/02/16 13:03; Start 08/02/16 at 08:49; Stop 08/04/16 at 10:21; Status DC Heparin Sodium (Porcine) 8000 units 8,000 units UNSCH PRN IVF WITH DIALYSIS; Start 08/02/16 at 09:00 Sodium Chloride 1,000 ml @ 200 mls/hr Q5H PRN IV WITH DIALYSIS; Start 08/02/16 at 08:49; Stop 08/04/16 at 10:21; Status DC Sodium Chloride (NS 1000 ml Inj) 1,000 ml @ 0 mls/hr Q0M PRN IV WITH DIALYSIS; Start 08/02/16 at 08:49 Mannitol (Mannitol Inj) 12.5 gm UNSCH PRN IV WITH DIALYSIS; Start 08/02/16 at 09:00 Albumin Human (Albumin 25% Inj) 25 gm UNSCH PRN IV WITH DIALYSIS; Start at 09:00 Sodium Chloride (NS Flush) 5 ml UNSCH PRN IV FLUSH WITH DIALYSIS; Start at 09:00 Heparin Sodium (Porcine) (Heparin Inj) UNSCH PRN .XX WITH DIALYSIS Last administered on 08/02/16 13:03; Start 08/02/16 at 09:00 Gentamicin Sulfate (Gentamicin (Dialysis) Inj) 20 mg UNSCH PRN IV WITH DIALYSIS Last administered on 08/02/16 13:03; Start 08/02/16 at 09:00 Ondansetron HCl (Zofran Inj) 4 mg UNSCH PRN IV WITH DIALYSIS Last administered on 08/03/16 09:02; Start 08/02/16 at 09:00 Acetaminophen (Tylenol) 650 mg UNSCH PRN PO for headach, pain, temp > 101F; Start 08/02/16 at 09:00 Diphenhydramine HCl (Benadryl) 25 mg UNSCH PRN PO for hives/itching/anaphylaxis ; Start 08/02/16 at 09:00 Nitroglycerin (Nitrostat Sl) 0.4 mg UNSCH PRN SL CHEST PAIN; Start 08/02/16 at 09:00 Clonidine (Catapres) 0.1 mg UNSCH PRN PO for BP > 180/100 X 2 readings Last administered on 08/02/16 09:39; Start 08/02/16 at 09:00 Gelatin (Gelfoam 12 Mm/7 Mm Top) 1 foam UNSCH PRN TOP SEE LABEL COMMENTS; Start 08/02/16 at 09:00 Hydralazine HCl (Apresoline Inj) 20 mg Q4H PRN IV PUSH SYS BP GREATER THAN 180 MMHG; Start 08/02/16 at 09:45 Bethanechol Chloride (Urecholine) 10 mg Q8HR PO Last administered on 08/04/16 05:39; Start 08/02/16 at 14:00 Amlodipine Besylate (Norvasc) 10 mg DAILY PO Last administered on 08/04/16 08: 45; Start 08/02/16 at 16:00 Hydralazine HCl 25 mg 25 mg Q8HR PO Last administered on 08/04/16 05:39; Start 08/03/16 at 14:00 Vancomycin HCl 1000 mg/Sodium Chloride 250 ml @ 250 mls/hr ONCE ONCE IV ; Start 08/03/16 at 11:45; Stop 08/03/16 at 12:44; Status UNV Pharmacy Profile Note 0 ml @ 0 mls/hr UNSCH OTHER ; Start 08/03/16 at 11:45; Status Cancel Vancomycin HCl 1000 mg/Sodium Chloride 250 ml @ 250 mls/hr WITH DIALYSIS IV ; Start 08/03/16 at 18:30 Vancomycin HCl/ Sodium Chloride (Vancomycin Inj/ NS 500 ml Inj) 515 ml @ 257.5 mls/ hr ONCE ONCE IV Last administered on 08/04/16t 00:28; Start 08/03/16 at 20:00; Stop 08/03/16 at 21:59; Status DC A/P Assessment and Plan Bacteremia -Positive cultures for gram-positive cocci pending culture sensitivity. -Repeat blood cultures X 2 on 08/03 -Infectious disease consulted and Levaquin and Zosyn discontinued. Continue vancomycin with dialysis. -Per infectious disease if cultures are so positive will need to change the catheter. Sepsis, -Tachycardia, Leukocytosis. -Resolved. -Due to bacteremia. Most likely vasc catheter is the source. -Lactate elevated at 6, however subsequently improved. -UA negative. -Chest x-ray with no acute finding. -Continue antibiotics as above. History of gastroparesis s/p botox injection on 07/26/16 -symptoms IMPROVED. -GI consulted and ff. -on bethanechol to 10 mg by mouth 3 times a day - Continue IV fluid - Continue PPI - Continue Zofran when necessary Abdominal pain. -due to gastroparesis. RESOLVED. -CT abdomen showed small hernia with loops of small bowel in the left inguinal canal, however no obstruction. Recent injections of pyloric sphincter. End-stage renal disease. On hemodialysis nephrology consulted and ff. Depression. - Chronic. Continue home medications Hyperkalemia. -IMPROVED. - Likely secondary to lactic acidosis. Expect to improve with treatment of sepsis. -Patient was given Kayexalate in the ER. - Follow-up electrolytes. Nephrology consulted. Appreciate assistance. Hypertension. -Chronic. -Continue home medication. Urinary retention. -Continue bethanechol Chronic pain syndrome -This is chronic. -Discontinue IV Dilaudid and restart his home tramadol. DVT prophylaxis -On heparin Discharge Planning Patient is bacteremic. Repeat blood cultures must be negative for at least 48 hours for before discharge. Inga eRid MD Aug 04, 2016 10:25
[2016-08-04] MEDS ORDERED: traMADol HCL 50 MG TAB PO PRN (10:30)
--- NOTE | 2016-08-04 12:44 | HHI.NPPN ---
Subjective History of Present Illness The patient is a 56yo [place] male who is known to our services for ESRD. He has has recurrent issues with NV over the past 6 months with multiple admissions for the same. Was recently admitted just a week ago and underwent Botox injections of esophagus. Says he was feeling fine until yesterday AM when nausea, vomiting, and high output from his ostomy started. [place] feverish, chills, and weak. Does have sharp epigastric abdominal pain. Denies CP or SOB. Last HD was Sunday. Typically TTS schedule. Interval History The patient indicated that he was feeling better. Objective Data Data 08/03/16 08/04/16 19:00 07:00 Intake Total 722 ml 846 ml Output Total 250 ml 340 ml Balance 472 ml 506 ml Intake Oral 600 ml 360 ml IV Total 122 ml 486 ml Output Urine Total 50 ml 90 ml Stool Total 200 ml 250 ml Vital Signs Date Time Temp Pulse Resp B/P Pulse Ox O2 Delivery O2 Flow Rate FiO2 08/04/16 08:05 100 21 08/04/16 08:00 98.5 63 20 148/72 100 08/04/16 08:00 63 08/04/16 07:25 20 08/04/16 06:00 60 08/04/16 04:00 61 08/04/16 04:00 98.9 61 20 166/82 99 08/04/16 02:00 61 08/04/16 00:00 98.0 63 18 163/79 99 08/04/16 00:00 63 08/03/16 22:00 66 08/03/16 20:00 69 08/03/16 20:00 97.8 76 20 99/79 99 08/03/16 18:00 72 08/03/16 16:00 97.2 76 18 126/79 97 08/03/16 14:09 100 21 08/03/16 14:00 76 -: 08/04/16 0437 08/04/16 0437 Microbiology 08/03/16 Aerobic Blood Culture - Preliminary, Resulted NO GROWTH IN 1 DAY 08/03/16 Anaerobic Blood Culture - Preliminary, Resulted NO GROWTH IN 1 DAY Physical Exam General Appearance: No Acute Distress, Comfortable Neck Neck Exam: Neck Supple, Trachea Midline Pulmonary Resp Exam: Clear Bilaterally, Breath Sounds Equal Cardiology CV Exam: Regular, Normal Sinus Rhythm Gastrointestinal/Abdomen GI Exam: Soft, Non-Tender Integumentary Skin Exam: Clear, Warm Extremeties Extremities Exam: No Edema Neurologic Neuro Exam: Alert, Awake, Oriented Psychiatric Psych Exam: Appropriate Responses Assessment/Plan Problem List: (1) ESRD (end stage renal disease) on dialysis Plan: Next hemodialysis planned for tomorrow. Blood cultures growing staph coagulase negative. Infectious disease consultation noted. Blood cultures remain positive PermCath will have to be removed. Prior to this admission patient had not established renovascular surgeon secondary to recurrent hospital admissions and I suspect some degree of noncompliance in arranging same. His VA insurance was an issue also limiting his options for consultation . I discussed situation with vascular surgeon here and he indicated that he would be happy to see the patient i.e. . Of course placement of the dialysis fistula will have to be delayed pending clearance of current infection Medications should be adjusted for the patient's ESRD. Avoid gadolinium as eGFR <30 (2) Intractable nausea and vomiting Plan: Recurrent issue. Failed recent botox injections. Appreciate GI input (3) Sepsis Plan: On abx. BCx pending. BCx neg x24h (4) DM (diabetes mellitus) Plan: Mgmt as per primary (5) HTN (hypertension) Plan: Add po Hydralazine 25mg q8h. David Kennedy MD Aug 04, 2016 12:44
[2016-08-04] MEDS: HEPARIN SODIUM - SQ 10,000 UNITS/ML VIAL SQ SCH ×2 (13:27→21:42)
--- NOTE | 2016-08-04 13:27 | HHI.IDPN ---
Note Infectious Disease Note Patient feels okay. Says he feels a little cold but is not having chills currently. Afebrile. Blood culture is negative x 24 hours on repeat. Presented to the hospital on August 01. He was evaluated in the ED for chills, intermittent sweats. A few days prior he underwent upper endoscopy with biopsies and Botox injection for upper abdominal pain and gastroparesis. The patient has a dialysis Perma-Cath in the right upper chest. He states that this has been there for about a year. PAST MEDICAL HISTORY 1. Hypertension, 2. Gastroparesis, 3. Anxiety, depression, 4. End-stage renal disease dialysis dependent 5. Diabetes mellitus 6. Colectomy, 7. Colostomy 8. Cardiac stent 9. Left upper extremity AV fistula ALLERGIES NO KNOWN DRUG ALLERGIES. ANTIBIOTICS Vancomycin. SOCIAL HISTORY The patient smokes half-a-pack of cigarettes a day. No alcohol. No illicit drugs. OBJECTIVE: Vital Signs Date Time Temp Pulse Resp B/P Pulse Ox O2 Delivery O2 Flow Rate FiO2 08/04/16 08:05 100 21 08/04/16 08:00 98.5 63 20 148/72 100 08/04/16 08:00 63 08/04/16 07:25 20 08/04/16 06:00 60 08/04/16 04:00 61 08/04/16 04:00 98.9 61 20 166/82 99 08/04/16 02:00 61 08/04/16 00:00 98.0 63 18 163/79 99 08/04/16 00:00 63 08/03/16 22:00 66 08/03/16 20:00 69 08/03/16 20:00 97.8 76 20 99/79 99 08/03/16 18:00 72 08/03/16 16:00 97.2 76 18 126/79 97 08/03/16 14:09 100 21 08/03/16 14:00 76 08/03/16 08/03/16 08/04/16 15:00 23:00 07:00 Intake Total 1043 ml 525 ml Output Total 440 ml 150 ml Balance 603 ml 375 ml Intake Oral 720 ml 240 ml IV Total 323 ml 285 ml Output Urine Total 90 ml 50 ml Stool Total 350 ml 100 ml Laboratory Tests Test 08/03/16 08/04/16 03:43 04:37 White Blood Count 9.9 TH/MM3 8.5 TH/MM3 Red Blood Count 3.46 MIL/MM3 3.46 MIL/MM3 Hemoglobin 10.0 GM/DL 10.2 GM/DL Hematocrit 29.5 % 29.7 % Mean Corpuscular Volume 85.2 FL 85.7 FL Mean Corpuscular Hemoglobin 28.9 PG 29.3 PG Mean Corpuscular Hemoglobin 33.9 % 34.2 % Concent Red Cell Distribution Width 13.6 % 13.3 % Platelet Count 173 TH/MM3 173 TH/MM3 Mean Platelet Volume 9.1 FL 9.5 FL Laboratory Tests Test 08/02/16 08/03/16 08/04/16 22:20 03:43 04:37 Lactic Acid Level 1.1 mmol/L Sodium Level 141 MEQ/L 140 MEQ/L Potassium Level 3.8 MEQ/L 3.2 MEQ/L Chloride Level 101 MEQ/L 99 MEQ/L Carbon Dioxide Level 32.2 MEQ/L 33.1 MEQ/L Anion Gap 8 MEQ/L 8 MEQ/L Blood Urea Nitrogen 22 MG/DL 14 MG/DL Creatinine 4.08 MG/DL 3.35 MG/DL Estimat Glomerular Filtration 15 ML/MIN 19 ML/MIN Rate Random Glucose 85 MG/DL 82 MG/DL Calcium Level 8.7 MG/DL 8.0 MG/DL Phosphorus Level 3.3 MG/DL 3.1 MG/DL Albumin 2.9 GM/DL 2.8 GM/DL Microbiology Date/Time Procedure Status Source Growth 08/01/16 20:55 Aerobic Blood Culture - Preliminary Resulted Blood Peripheral Staph Sp Coagulase Negative 08/01/16 20:55 Anaerobic Blood Culture - Preliminary Resulted Staph Sp Coagulase Negative 08/01/16 21:00 Aerobic Blood Culture - Final Resulted Blood Peripheral Staphylococcus Hominis-Hominis 08/01/16 21:00 Anaerobic Blood Culture - Preliminary Resulted Staph Sp Coagulase Negative 08/03/16 12:40 Aerobic Blood Culture - Preliminary Resulted Blood Peripheral NO GROWTH IN 1 DAY 08/03/16 12:40 Anaerobic Blood Culture - Preliminary Resulted Blood Peripheral NO GROWTH IN 1 DAY 08/03/16 12:45 Aerobic Blood Culture - Preliminary Resulted Blood Peripheral NO GROWTH IN 1 DAY 08/03/16 12:45 Anaerobic Blood Culture - Preliminary Resulted Blood Peripheral NO GROWTH IN 1 DAY IMAGING: Abdomen/Pelvis CT [id number] Signed Impressions: Service Date/Time: Monday, August 01, 2016 22:50 - CONCLUSION: 1. Left-sided inguinal hernia containing a loop of small bowel and fluid in the left inguinal canal. However no evidence for small bowel obstruction. 2. Right-sided colostomy. 3. Renal cortical atrophy with stable renal calcifications and exophytic cysts. 4. Hiatal hernia. Eduardo Cano MD Chest X-Ray 08/01/162030 Signed Impressions: Service Date/Time: Monday, August 01, 2016 20:57 - CONCLUSION: 1. No acute cardiopulmonary disease. Samuel Ward MD PHYSICAL EXAMINATION GENERAL: No acute distress. He is awake and alert and oriented. HEENT: Extraocular movements grossly intact, pupils reactive to light. No icterus. Oropharynx no visible lesions. Mucosa is moist. NECK: Supple. No adenopathy. No swelling. LUNGS: Slight rhonchi at the bases. HEART: Regular rate and rhythm without murmurs, rubs or gallops. CHEST: The Perma-Cath dialysis catheter in the right upper chest appears intact. There is no visible signs of infection at the entry. ABDOMEN: Bowel sounds present, soft, nontender. EXTREMITIES: No clubbing or cyanosis or edema. 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 The wound is intact. NEUROLOGIC: No gross focal findings. SKIN: No rash. PSYCHIATRIC: The patient is calm and cooperative. IMPRESSION 1. Bacteremia due to staph coagulase negative. 2. End-stage renal disease on hemodialysis in patient who has a Perma-Cath in the right upper chest. 3. Leukocytosis, improved. RECOMMENDATIONS 1. Continue vancomycin with dialysis for treatment of the bacteremia. Plan on 14 days duration from last culture. If repeat blood culture is positive he will need removal of the permacath. 2. Monitor repeat blood cultures. I will be away until 08/15. Other ID MD's covering in my absence. Mitchell Sampson MD Aug 04, 2016 13:27
--- NOTE | 2016-08-04 15:51 | RADRPT ---
EXAM DATE/TIME: 08/04/2016 14:09 [facility] COMPARISON: No previous studies available for comparison. INDICATIONS : Arteriovenous shunt planning. MEDICAL HISTORY : Congestive heart failure. Hypercholesterolemia. Myocardial infarction. Neuropathy.Hypertension. Gastr oesophageal reflux. Renal failure. Dialysis. Kidney stones. Inguinal hernia. Diabetes. Depression. An xiety. C.diff. SURGICAL HISTORY : Coronary artery stent. Left arm AV fistula. Right big toe amputation. Colostomy. Right leg femoropop liteal bypass surgery. Colon resection. ENCOUNTER: Initial ACUITY: 1 day PAIN SCORE: 6/10 LOCATION: Bilateral arm. FINDINGS: RIGHT UPPER EXTREMITY: There is spontaneous flow documented in the brachial, basilic axillary, and subclavian veins. Cephal ic vein is not identified. The vessels are compressible and augmentation response is documented. No filling defects are seen. The flow is phasic with respiration. Direction of flow in the jugular vei n is caudal. LEFT UPPER EXTREMITY: There is spontaneous flow documented in the brachial, basilic axillary, and subclavian veins. Cephal ic vein is occluded and noncompressible. The vessels are compressible and augmentation response is do cumented. No filling defects are seen. The flow is phasic with respiration. Direction of flow in t he jugular vein is caudal. CONCLUSION: 1. No deep venous thrombosis in either upper extremity. 2. Occlusion of the left cephalic vein. Nonvisualization of the right cephalic vein. Randy Hung MD on August 04, 2016 at 15:46 Board Certified Radiologist. This report was verified electronically.
--- NOTE | 2016-08-04 16:00 | RADRPT ---
EXAM DATE/TIME: 08/04/2016 14:29 [facility] COMPARISON: No previous studies available for comparison. INDICATIONS : Arteriovenous shunt planning. MEDICAL HISTORY : Congestive heart failure. Hypercholesterolemia. Myocardial infarction. Neuropathy. Hypertension. Gas troesophageal reflux. Renal failure. Dialysis. Kidney stones. Inguinal hernia. Diabetes. Cdiff. SURGICAL HISTORY : Coronary artery stent. Left arm AV fistula. Right big toe amputation. Colostomy. Right leg femoropopl iteal bypass surgery. Colon resection. ENCOUNTER: Initial ACUITY: 1 day PAIN SCORE: 6/10 LOCATION: Bilateral arm. CEPHALIC: ORIGIN: Right Non-visualized Left 1 mm MID-ARM: Right Non-visualized Left 1 mm ELBOW: Right Non-visualized Left 1 mm FOREARM: Right Non-visualized Left Thrombosed WRIST: Right Non-visualized Left Thrombosed BASILIC: ORIGIN: Right 3 mm Left 2 mm MID-ARM: Right 2 mm Left 2 mm ELBOW: Right 2 mm Left 2 mm ARTERIES: BRACHIAL: Right 4 mm Left 4 mm ULNAR: Right 2 mm Left 2 mm RADIAL: Right 1 mm Left 1 mm VEINS: RADIAL: Right 1 mm Left 1 mm ULNAR: Right 1 mm Left 1 mm FINDINGS: The venous system of the upper extremities are patent by color Doppler imaging. Measurements of the arm veins (in mm) are listed above. CONCLUSION: 1. Deep venous system appears to be patent in the upper extremities bilaterally. Vein measurements as above. 2. Nonvisualization of the right cephalic vein probably due to chronic occlusion. The left cephalic v ein distal to the elbow is thrombosed. More centrally, the vein measures 1 mm in diameter. Randy Hung MD on August 04, 2016 at 15:56 Board Certified Radiologist. This report was verified electronically.
[2016-08-04] MEDS ORDERED: ACETAMINOPHEN/HYDROcodone 325 MG/5 MG TAB PO PRN (17:30)
[2016-08-04] MEDS: ACETAMINOPHEN/HYDROcodone 325 MG/5 MG TAB PO PRN ×2 (19:00→23:03)
[2016-08-05] VITALS (8 sets, daily range): BP systolic 155–177; BP diastolic 81–83; PULSE 55–72; RESP 18–20; TEMP 98.2–98.5; O2SAT 99–100
[2016-08-05] MEDS: PANTOPRAZOLE SODIUM 40 MG VIAL IV PUSH SCH ×2 (03:05→15:00)
[2016-08-05] MEDS: ACETAMINOPHEN/HYDROcodone 325 MG/5 MG TAB PO PRN ×4 (03:05→18:02)
[2016-08-05] MEDS: CHLORHEXIDINE GLUCONATE 2 % 1 PACK (2 CLOTHS)(taper/protocol) TOPICAL SCH (04:00)
[2016-08-05 04:52] LABS: HEMATOCRIT 31.4 % (39.0-51.0); MEAN CELL VOLUME 84.7 FL (80.0-100.0); MEAN CORPUSCULAR HEMOGLOBIN 29.3 PG (27.0-34.0); MEAN CORPUSCULAR HGB CONC 34.5 % (32.0-36.0); PLATELET COUNT 194 TH/MM3 (150-450); RED CELL DISTRIBUTION WIDTH 13.3 % (11.6-17.2); REVIEW FLAG FINAL; WHITE BLOOD COUNT 9.5 TH/MM3 (4.0-11.0)
[2016-08-05] MEDS: hydrALAZINE HCL 25 MG TAB PO SCH ×2 (05:46→14:00)
[2016-08-05] MEDS: BETHANECHOL CHL 10 MG TAB PO SCH ×2 (05:47→13:22)
[2016-08-05] MEDS: INSULIN ASPART SUPPLEMENTAL SCALE SQ SCH ×3 (06:57→16:00)
--- NOTE | 2016-08-05 07:47 | PD.VS.CON ---
History of Present Illness Chief Complaint: ESRD, need for HD access Consult Requested by: Dr. Kennedy, nephrology History of Present Illness 56 yo male with ESRD who is admitted for presumed infection. Pt had prior L Marni but currently getting HD TTS via R chest catheter. RIGHT handed. In terms of infecious work up, presented with chills. 05/10 blood cx + and still having chills, but better. WBC normalized. Past/Family/Social History Past Medical History ESRD Gastroparesis Colon perforation req resection and ostomy CAD with stents HTN DM Past Surgical History L UE access - a year ago Colectomy Home Medications Active Scripts Bethanechol (Urecholine)25 Mg Tab25 Mg PO Q8HR PRN (pain) #60 TAB Prov:Maris Love MD 07/26/16 Pantoprazole (Protonix)40 Mg Tab40 Mg PO BID #60 TAB Ref 0 Prov:Maris Love MD 07/26/16 Ondansetron Odt (Zofran Odt)8 Mg Tab8 Mg SL Q8H PRN (NAUSEA OR VOMITING) #10 TAB Ref 0 Prov:Ina France MD 06/10/16 Reported Medications Bumetanide (Bumex)2 Mg Tab2 Mg PO DAILY Ref 0 07/24/16 Enalapril Unknown Strength TabUnknown Dose PO DAILY #30 TAB Ref 0 07/24/16 Tramadol 50 Mg [id number] Mg PO BID PRN (PAIN) Ref 0 06/02/16 Amlodipine (Norvasc)10 Mg Tab10 Mg PO DAILY #30 TAB Ref 0 04/18/16 Buspirone 10 Mg Tab10 Mg PO BID Ref 0 04/18/16 Citalopram 20 Mg Tab20 Mg PO DAILY #30 TAB Ref 0 04/18/16 Metoprolol Tartrate 50 Mg Tab50 Mg PO BID #60 TAB Ref 0 04/18/16 Coded Allergies: No Known Allergies (Unverified , 08/01/16) Review of Systems Constitutional: COMPLAINS OF: Chills Respiratory: DENIES: Cough, Shortness of breath Cardiovascular: DENIES: Chest pain Physical Exam Vitals/I&O Date Time Temp Pulse Resp B/P Pulse Ox O2 Delivery O2 Flow Rate FiO2 08/05/16 06:00 67 08/05/16 04:05 20 08/05/16 04:00 98.5 61 20 155/81 99 08/05/16 04:00 62 08/05/16 02:00 55 08/05/16 00:00 63 08/05/16 00:00 98.2 63 18 156/81 100 08/04/16 22:00 59 08/04/16 20:00 98.4 72 12 196/94 100 08/04/16 20:00 72 08/04/16 19:05 99 21 08/04/16 18:00 69 08/04/16 16:00 77 08/04/16 16:00 98.8 76 20 178/86 99 08/04/16 14:29 18 08/04/16 14:00 74 08/04/16 12:00 98.7 72 18 126/82 99 08/04/16 12:00 69 08/04/16 10:00 72 08/04/16 08:05 100 21 08/04/16 08:00 98.5 63 20 148/72 100 08/04/16 08:00 63 08/05/16 08/05/16 08/05/16 07:00 15:00 23:00 Intake Total 278 ml Output Total 200 ml Balance 78 ml Neuro: Alert, conversant HEENT: NC/AT Neck: no JVD Heart: reg rate, no M Lungs: clear bilaterally Abdomen: NT, soft; + ostomy Vascular: Palpable L brachial pulse, normal in character Extremities: NO incisions in L UE at AC or proximally Laboratory Tests Test 08/05/16 03:38 White Blood Count 9.5 Red Blood Count 3.70 Hemoglobin 10.8 Hematocrit 31.4 Mean Corpuscular Volume 84.7 Mean Corpuscular Hemoglobin 29.3 Mean Corpuscular Hemoglobin 34.5 Concent Red Cell Distribution Width 13.3 Platelet Count 194 Mean Platelet Volume 10.0 Sodium Level 141 Potassium Level 3.0 Chloride Level 103 Carbon Dioxide Level 28.0 Anion Gap 10 Blood Urea Nitrogen 27 Creatinine 4.61 Estimat Glomerular Filtration 13 Rate Random Glucose 85 Calcium Level 8.5 Date/Time Procedure Status Source Growth 08/03/16 12:45 Aerobic Blood Culture - Preliminary Resulted Blood Peripheral NO GROWTH IN 1 DAY 08/03/16 12:45 Anaerobic Blood Culture - Preliminary Resulted Blood Peripheral NO GROWTH IN 1 DAY 08/01/16 21:00 Aerobic Blood Culture - Final Resulted Blood Peripheral Staphylococcus Hominis-Hominis 08/01/16 21:00 Anaerobic Blood Culture - Preliminary Resulted Staph Sp Coagulase Negative Last 48 hours Impressions Upper Extremity Ultrasound 08/04/16 0000 Signed Impressions: Service Date/Time: Thursday, August 04, 2016 14:09 - CONCLUSION: 1. No deep venous thrombosis in either upper extremity. 2. Occlusion of the left cephalic vein. Nonvisualization of the right cephalic vein. Randy Hung MD Upper Extremity Ultrasound 08/04/16 0000 Signed Impressions: Service Date/Time: Thursday, August 04, 2016 14:29 - CONCLUSION: 1. Deep venous system appears to be patent in the upper extremities bilaterally. Vein measurements as above. 2. Nonvisualization of the right cephalic vein probably due to chronic occlusion. The left cephalic vein distal to the elbow is thrombosed. More centrally, the vein measures 1 mm in diameter. Randy Hung MD Assessment and Plan Plan ESRD needs HD access 1. Marginal L basilic vein. My plan is L UE access - brachiobasilic vs brach- ax depending on intraoperative assessment of vein 2. Would wait until resolution of possible infection 3. Will follow and perform surgery likely this hospitalization, unless infection proven and then will schedule as outpatient especially given potential for prosthetic 4. L UE precautions Samuel Atkins MD FACS body man [facility] - Heart and Vascular Surgery at [facility] [phone] Samuel Atkins MD Aug 05, 2016 07:47
[2016-08-05] MEDS: SODIUM CHLORIDE 0.9% FLUSH 10 ML FLUSH IV FLUSH SCH (09:00)
[2016-08-05] MEDS: HEPARIN SODIUM - SQ 10,000 UNITS/ML VIAL SQ SCH (11:00)
[2016-08-05] MEDS: GENTAMICIN SULFATE (DIALYSIS USE ONLY) 20 MG/2 ML VIAL IV PRN (12:27)
[2016-08-05] MEDS: HEPARIN SODIUM - IV 10,000 UNITS/10 ML VIAL PRN (12:27)
--- NOTE | 2016-08-05 12:36 | HHI.NPPN ---
Subjective History of Present Illness The patient is a 56yo [place] male who is known to our services for ESRD. He has has recurrent issues with NV over the past 6 months with multiple admissions for the same. Was recently admitted just a week ago and underwent Botox injections of esophagus. Says he was feeling fine until yesterday AM when nausea, vomiting, and high output from his ostomy started. [place] feverish, chills, and weak. Does have sharp epigastric abdominal pain. Denies CP or SOB. Last HD was Sunday. Typically TTS schedule. Interval History Pt seen during HD. Very agitated today stating he is going to be signing himself out AMA. Says that he is having pain and upset they have removed his IV pain medications. No further NV or diarrhea. Denies abdominal pain, says he is having generalized pain. (Eugenie Britton ) Review of Systems Musculoskeletal MS Remarks Reports generalized body pain (Eugenie Britton) Objective Data Data 08/04/16 08/05/16 19:00 07:00 Intake Total 673 ml 853 ml Output Total 150 ml 450 ml Balance 523 ml 403 ml Intake Oral 600 ml 720 ml IV Total 73 ml 133 ml Output Urine Total 150 ml 250 ml Stool Total 200 ml Vital Signs Date Time Temp Pulse Resp B/P Pulse Ox O2 Delivery O2 Flow Rate FiO2 08/05/16 08:00 69 08/05/16 06:00 67 08/05/16 04:05 20 08/05/16 04:00 98.5 61 20 155/81 99 08/05/16 04:00 62 08/05/16 02:00 55 08/05/16 00:00 63 08/05/16 00:00 98.2 63 18 156/81 100 08/04/16 22:00 59 08/04/16 20:00 98.4 72 12 196/94 100 08/04/16 20:00 72 08/04/16 19:05 99 21 08/04/16 18:00 69 08/04/16 16:00 77 08/04/16 16:00 98.8 76 20 178/86 99 08/04/16 14:29 18 08/04/16 14:00 74 (Eugenie Britton) -: 08/05/16 0338 08/05/16337 Medication Review Current Medications Medications (Trade) Dose Ordered Sig/Hallie Route Start Time Stop Time Status Last Admin (NS Flush) 2 ml UNSCH PRN IV FLUSH 08/01/16 22:45 (NS Flush) 2 ml BID IV FLUSH 08/02/16 09:00 08/04/16 19:50 (Tylenol) 650 mg Q4H PRN PO 08/01/16 22:45 (Zofran Inj) 4 mg Q6H PRN IVP 08/01/16 22:45 08/02/16 21:45 (Milk Of Magnesia Liq) 30 ml Q12H PRN PO 08/01/16 22:45 (Heparin Inj) 5,000 units Q12H SQ 08/01/16 23:00 08/04/16 21:42 (D50w (Vial) Inj) 25 ml UNSCH PRN IV PUSH 08/01/16 22:45 (Glucagon Inj) 1 mg UNSCH PRN OTHER 08/01/16 22:45 (Lopressor) 50 mg BID PO 08/02/16 09:00 08/04/16 19:49 (Ecotrin Ec) 81 mg DAILY PO 08/02/16 09:00 08/04/16 08:45 (Buspar) 10 mg BID PO 08/02/16 09:00 08/04/16 19:49 (CeleXA) 20 mg DAILY PO 08/02/16 09:00 08/04/16 08:45 (Protonix Inj) 40 mg Q12H IV PUSH 08/02/16 15:00 08/05/16 03:05 (Narcan Inj) 0.4 mg UNSCH PRN IV 08/02/16 04:45 Miscellaneous Information Patient in critical care unit? Ass... Q361D XX 08/02/16 05:00 (Chlorhexidine 2% Cloth) 3 pack DAILY@04 TOPICAL 08/03/16 04:00 08/07/16 04:01 08/05/16 04:00 (Chlorhexidine 2% Cloth) 3 pack UNSCH PRN TOPICAL 08/02/16 05:00 08/07/16 04:58 Heparin Sodium (Porcine) 8000 units 8,000 units UNSCH PRN IVF 08/02/16 09:00 (NS 1000 ml Inj) 1,000 ml @ 0 mls/hr Q0M PRN IV 08/02/16 08:49 (Mannitol Inj) 12.5 gm UNSCH PRN IV 08/02/16 09:00 (Albumin 25% Inj) 25 gm UNSCH PRN IV 08/02/16 09:00 (NS Flush) 5 ml UNSCH PRN IV FLUSH 08/02/16 09:00 (Heparin Inj) UNSCH PRN .XX 08/02/16 09:00 08/05/16 12:27 (Gentamicin (Dialysis) Inj) 20 mg UNSCH PRN IV 08/02/16 09:00 08/05/16 12:27 (Zofran Inj) 4 mg UNSCH PRN IV 08/02/16 09:00 08/03/16 09:02 (Tylenol) 650 mg UNSCH PRN PO 08/02/16 09:00 (Benadryl) 25 mg UNSCH PRN PO 08/02/16 09:00 (Nitrostat Sl) 0.4 mg UNSCH PRN SL 08/02/16 09:00 (Catapres) 0.1 mg UNSCH PRN PO 08/02/16 09:00 08/02/16 09:39 (Gelfoam 12 Mm/7 Mm Top) 1 foam UNSCH PRN TOP 08/02/16 09:00 (Apresoline Inj) 20 mg Q4H PRN IV PUSH 08/02/16 09:45 08/05/16 02:13 (Urecholine) 10 mg Q8HR PO 08/02/16 14:00 08/05/16 05:47 (Norvasc) 10 mg DAILY PO 08/02/16 16:00 08/04/16 08:45 (Apresoline) 25 mg Q8HR PO 08/03/16 14:00 08/05/16 05:46 ([place] 5-325 Mg) 1 tab Q4H PRN PO 08/04/16 17:30 ([place] 5-325 Mg) 2 tab Q4H PRN PO 08/04/16 17:30 08/05/16 06:56 (Eugenie Britton) Physical Exam General Appearance: No Acute Distress (Eugenie Britton) Neck Neck Exam: Neck Supple, Trachea Midline (Eugenie Britton) Pulmonary Resp Exam: Clear Bilaterally, Breath Sounds Equal (Eugenie Britton) Cardiology CV Exam: Regular, Normal Sinus Rhythm (Eugenie Britton) Gastrointestinal/Abdomen GI Exam: Soft, Non-Tender (Eugenie Britton) Integumentary Skin Exam: Clear, Warm (Eugenie Britton) Extremeties Extremities Exam: No Edema (Eugenie Britton) Neurologic Neuro Exam: Alert, Awake, Oriented (Eugenie Britton) Psychiatric Psych Exam: Appropriate Responses (Eugenie Britton) Assessment/Plan Problem List: (1) ESRD (end stage renal disease) on dialysis Plan: Seen during HD today. Repeat BCx neg thus far, but if final report as positive, will have to have PC removed. ID recommends Vanco with HD x 14 days Blood cultures remain positive PermCath will have to be removed. The patient is very upset today and says he will be signing himself out AMA despite counselling otherwise, especially given his bacteremia. Medications should be adjusted for the patient's ESRD. Avoid gadolinium as eGFR <30 (2) Intractable nausea and vomiting Plan: Resolved (3) Sepsis Plan: Repeat BCx neg thus far (4) DM (diabetes mellitus) Plan: Mgmt as per primary (5) HTN (hypertension) Plan: Continue current regimen (Eugenie Britton) Plan The exam, history, and the medical decision-making described in the above note were completed with the assistance of the PAJackson. I reviewed and agree with the findings presented. I attest that I had a [id number] encounter with the patient on the same day, and personally performed and documented my assessment and findings in the medical record. Patient threatening to sign out AMA. I advised him that he did so the patient physician relationship have to be reevaluated by myself and may result in possible discharge from my practice with 30 days notice. He was strongly advised not to leave the hospital until the issue of whether not PermCath had to be removed and subsequently replaced was fully evaluated and clear from the primary care physician's point of view also.. (David Kennedy MD) Eugenie Britton Aug 05, 2016 12:36 David Kennedy MD Aug 05, 2016 14:58
[2016-08-05] MEDS: busPIRone HCL 10 MG TAB PO SCH (13:23)
[2016-08-05] MEDS: ASPIRIN EC 81 MG TABEC PO SCH (13:23)
[2016-08-05] MEDS: METOPROLOL TARTRATE 50 MG TAB PO SCH (13:23)
[2016-08-05] MEDS: CITALOPRAM HYDROBROMIDE 20 MG TAB PO SCH (13:23)
--- NOTE | 2016-08-05 13:24 | HHI.PR ---
Subjective Remarks "i am going to leave after i am done eating " pt refused to be seen or examined , he stated in the presence of the nurse he doesn't care about treatment anymore , he is AAo3 i tried to convince him and explain the risk of interupting the tx , however pt was very unpleasant and did not want to listen and asked me to leave Objective Vitals Vital Signs Date Time Temp Pulse Resp B/P Pulse Ox O2 Delivery O2 Flow Rate FiO2 08/05/16 08:00 69 08/05/16 06:00 67 08/05/16 04:05 20 08/05/16 04:00 98.5 61 20 155/81 99 08/05/16 04:00 62 08/05/16 02:00 55 08/05/16 00:00 63 08/05/16 00:00 98.2 63 18 156/81 100 08/04/16 22:00 59 08/04/16 20:00 98.4 72 12 196/94 100 08/04/16 20:00 72 08/04/16 19:05 99 21 08/04/16 18:00 69 08/04/16 16:00 77 08/04/16 16:00 98.8 76 20 178/86 99 08/04/16 14:29 18 08/04/16 14:00 74 I/O 08/04/16 08/04/16 08/04/16 08/05/16 08/05/16 08/05/16 07:00 15:00 23:00 07:00 15:00 23:00 Intake Total 525 ml 673 ml 575 ml 278 ml Output Total 150 ml 150 ml 250 ml 200 ml Balance 375 ml 523 ml 325 ml 78 ml Intake Oral 240 ml 600 ml 480 ml 240 ml IV Total 285 ml 73 ml 95 ml 38 ml Output Urine Total 50 ml 150 ml 200 ml 50 ml Stool Total 100 ml 50 ml 150 ml Result Diagram: 08/05/16 0338 08/05/16 0338 Helene Sanchez MD Aug 05, 2016 13:24
--- NOTE | 2016-08-24 14:41 | HHI.DS ---
Discharge Summary Admission Date Aug 01, 2016 at 22:27 Discharge Date: Aug 05, 2016 Admitting Diagnosis Sepsis of undetermined origin, dehydration, vomiting (1) CKD (chronic kidney disease) ICD Code: N18.9 (2) HTN (hypertension) ICD Code: I10 (3) ESRD (end stage renal disease) on dialysis ICD Code: N18.6 (4) Diabetes type 2, uncontrolled ICD Code: E11.65 Procedures see below Brief History - From Admission 48-year-old male with history of end-stage renal disease on hemodialysis, hypertension, diabetes mellitus, gastroparesis, who presents with three-day history of diaphoresis, malaise. He also reports constant, sharp, nonradiating epigastric pain. He woke up this morning with acute onset nausea and vomiting of nonbloody emesis. He also reports profuse output from his colostomy, with nonbloody diarrhea. Patient denies any dysuria, hematuria. Denies any chest pain, denies shortness of breath, however does say that he is having significant difficulty catching his breath. History is somewhat limited secondary to tachypnea Recent admission from for abdominal pain, nausea, vomiting. Emesis was somehow tested for stool Hemoccult, and positive. EGD showed duodenitis, patient underwent Botox injections with pyloric canal for treatment of gastroparesis. Aspirin was discontinued at that time. 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 PE at Discharge pt refused to be examined Hospital Course pt refused to be seen by me , she was eating her lunch and stated she will leave once she is done . her hospital course as per my colleague jeffreyan who followed her is as follows Bacteremia -Positive cultures for gram-positive cocci pending culture sensitivity. -Repeat blood cultures X 2 on 08/03 -Infectious disease consulted and Levaquin and Zosyn discontinued. Continue vancomycin with dialysis. -Per infectious disease if cultures are so positive will need to change the catheter. Sepsis, -Tachycardia, Leukocytosis. -Resolved. -Due to bacteremia. Most likely vasc catheter is the source. -Lactate elevated at 6, however subsequently improved. -UA negative. -Chest x-ray with no acute finding. -Continue antibiotics as above. History of gastroparesis s/p botox injection on 07/26/16 -symptoms IMPROVED. -GI consulted and ff. -on bethanechol to 10 mg by mouth 3 times a day - Continue IV fluid - Continue PPI - Continue Zofran when necessary Abdominal pain. -due to gastroparesis. RESOLVED. -CT abdomen showed small hernia with loops of small bowel in the left inguinal canal, however no obstruction. Recent injections of pyloric sphincter. End-stage renal disease. On hemodialysis nephrology consulted and ff. Depression. - Chronic. Continue home medications Hyperkalemia. -IMPROVED. - Likely secondary to lactic acidosis. Expect to improve with treatment of sepsis. -Patient was given Kayexalate in the ER. - Follow-up electrolytes. Nephrology consulted. Appreciate assistance. Hypertension. -Chronic. -Continue home medication. Urinary retention. -Continue bethanechol Chronic pain syndrome -This is chronic. -Discontinue IV Dilaudid and restart his home tramadol. DVT prophylaxis Pt Condition on Discharge: Stable (unable to evaluate due to pt refused to be examined ) Discharge Disposition: Discharge Home (please be notified , pt was not discharged home , she left AMA , which we do not have it as an option in discharge disposition , but yet we have to pick one . ) Discharge Time: <= 30 minutes Helene Sanchez MD Aug 24, 2016 14:41
== END 2016-08-05 20:35 | disposition left against medical advice (07) | DRG 314 ==
LOC: NEPE 20:06 → NEDA 22:27 → HIMW 08-02 02:30
PROVIDERS: ADMIT Hospitalist; ATTEND Hospitalist
PROC: 5A1D60Z (ICD-10-PCS; principal; 2016-08-02)
DX: T80.211A Bloodstream infection due to central venous catheter, initial encounter (principal); A41.1 Sepsis due to other specified staphylococcus; I13.2 Hypertensive heart and chronic kidney disease with heart failure and with stage 5 chronic kidney disease, or end stage renal disease; E87.2 Acidosis; K31.84 Gastroparesis; N18.6 End stage renal disease; E11.52 Type 2 diabetes mellitus with diabetic peripheral angiopathy with gangrene; E11.22 Type 2 diabetes mellitus with diabetic chronic kidney disease; D63.8 Anemia in other chronic diseases classified elsewhere; E78.5 Hyperlipidemia, unspecified; E86.0 Dehydration; E87.5 Hyperkalemia; G62.9 Polyneuropathy, unspecified; G89.4 Chronic pain syndrome; I50.9 Heart failure, unspecified; I25.10 Atherosclerotic heart disease of native coronary artery without angina pectoris; I25.2 Old myocardial infarction; I34.0 Nonrheumatic mitral (valve) insufficiency; I70.8 Atherosclerosis of other arteries; K21.9 Gastro-esophageal reflux disease without esophagitis; K29.80 Duodenitis without bleeding; K40.90 Unilateral inguinal hernia, without obstruction or gangrene, not specified as recurrent; K44.9 Diaphragmatic hernia without obstruction or gangrene; R33.9 Retention of urine, unspecified; Z93.3 Colostomy status; Z95.5 Presence of coronary angioplasty implant and graft; Z99.2 Dependence on renal dialysis; F12.90 Cannabis use, unspecified, uncomplicated; F17.210 Nicotine dependence, cigarettes, uncomplicated; F32.9 Major depressive disorder, single episode, unspecified
CPT/HCPCS: 71010; 74176; 80048; 80053; 80069; 81001; 82550; 82552; 82948; 83605; 83690; 83735; 83880; 84484; 85025; 85027; 85610; 85730; 86140; 86403; 87040; 87077; 87186; 87205; 87493; 87641; 90935; 93005; 93970; 93998; 96365; 96374; 96375; C9113; J0360; J1170; J1580; J1644; J1956; J2270; J2405; J2543; J3370; J3411; J7030; J7040; J7050

== ENCOUNTER 2016-08-22 06:02 | Inpatient (IN) | payer OTHER, MEDICARE ==
[2016-08-22] VITALS (10 sets, daily range): BP systolic 100–141; BP diastolic 55–84; PULSE 86–111; RESP 18–26; TEMP 98.3–98.6; O2SAT 75–100
[~2016-08-22] VITALS: Ht 170.2 cm; Wt 70.4 kg
[2016-08-22] MEDS ORDERED: methylPREDNISolone SOD SUCC 125 MG/2 ML VIAL IVP ONE (06:30)
[2016-08-22] MEDS ORDERED: NITROGLYCERIN 2% OINT 1 GM PACKET TOP ONE (06:30)
[2016-08-22] MEDS ORDERED: SODIUM CHLORIDE 0.9% FLUSH 10 ML FLUSH IVF PRN ×2 (06:30→09:15)
[2016-08-22] MEDS: RESP: ALBUTEROL 2.5 MG/IPRATROPIUM 0.5 MG NEB (SCH) INH (06:36)
[2016-08-22] MEDS ORDERED: ASPIRIN 81 MG CHEW TAB CHEW ONE (06:45)
--- NOTE | 2016-08-22 06:50 | RADRPT ---
EXAM DATE/TIME: 08/22/2016 06:19 [facility] COMPARISON: No previous studies available for comparison. INDICATIONS : Shortness of breath. MEDICAL HISTORY : Congestive heart failure. Myocardial infarction. SURGICAL HISTORY : Coronary artery stent. ENCOUNTER: Initial ACUITY: 1 day PAIN SCORE: Non-responsive. LOCATION: Bilateral chest FINDINGS: A single view of the chest demonstrates definite infiltrate in the left lung base and minimally in th e right lower lobe new since July. Right-sided dual-lumen catheter has tip overlying the SVC. The cardiomediastinal contours are unremarkable. Osseous structures are intact. CONCLUSION: Bilateral lower lobe consolidations left greater than right entirely new since July. Dual-lumen cath eter in good position. No pneumothorax. Syd Salmeron MD on August 22, 2016 at 6:47 Board Certified Radiologist. This report was verified electronically.
[2016-08-22] MEDS ORDERED: AZITHROMYCIN INJ 500 MG in SODIUM CHLOR 0.9% 250 ML INJ 250 ML IV STA (06:56)
[2016-08-22] MEDS ORDERED: CEFEPIME INJ 2,000 MG in SODIUM CHLORIDE 0.9% INJ 100 ML IV STA (06:56)
[2016-08-22 07:01] LABS: AUTOMATED NEUTROPHIL # 15.7 TH/MM3 (1.8-7.7); BASOPHIL # 0.1 TH/MM3 (0-0.2); BASOPHIL % 0.3 % (0.0-2.0); EOSINOPHIL # 0.2 TH/MM3 (0-0.4); EOSINOPHIL % 1.2 % (0.0-4.0); HEMATOCRIT 33.4 % (39.0-51.0); LYMPH % 12.1 % (9.0-44.0); LYMPHOCYTE # 2.4 TH/MM3 (1.0-4.8); MEAN CELL VOLUME 90.3 FL (80.0-100.0); MEAN CORPUSCULAR HEMOGLOBIN 29.4 PG (27.0-34.0); MEAN CORPUSCULAR HGB CONC 32.5 % (32.0-36.0); MONO % 6.7 % (0.0-8.0); NEUT % 79.7 % (16.0-70.0); PLATELET COUNT 256 TH/MM3 (150-450); RED CELL DISTRIBUTION WIDTH 15.9 % (11.6-17.2); WHITE BLOOD COUNT 19.7 TH/MM3 (4.0-11.0)
--- NOTE | 2016-08-22 07:03 | PD ---
HPI Chief Complaint: Chest Pain Time Seen by Provider: 06:09 Travel History International Travel<30 days: No Contact w/Intl Traveler<30days: No Traveled to known affect area: No History of Present Illness HPI The patient is a 56 year old male who presents to the [facility] emergency department with a history of chest pain and shortness of breath that he reports began at 1 AM while he was sitting and relaxing. He reports that the pain is in the left side of his chest and radiates to the left arm. The patient reports that the pain as being constant and a pressure sensation. He reports having diaphoresis associated with this and nausea. He reports that at 10 PM he also began to have a cough. He reports that the cough is dry in character. He denies having any fevers, however he has had chills and intermittent sweats since his last admission to the hospital in July. The patient reports having one episode of vomiting/dry heaving on arrival. The patient arrives with O2 saturations on room air of 75%. The patient was placed on a nonrebreather mask and respiratory therapy came to assist with the patient's care. The patient is a hemodialysis patient. He reports that he had his last hemodialysis on Sunday. He denies missing any recent sessions. He reports that he has been on hemodialysis for the last year. The patient reports having generalized weakness. The patient denies any neck pain, abdominal pain, diarrhea, or other other neurologic symptoms. [facility] Past Medical History Narrative Medical The patient's past medical history is significant for hypertension, history of chronic renal failure on hemodialysis on Sunday, , Sunday, hypertension, diabetes mellitus, gastroparesis, history of myocardial infarction in 2003 with 1 stent placed, history of congestive heart failure, history of diabetes mellitus, history of a gangrenous colon status post resection with colostomy. Hx Anticoagulant Therapy: No Arthritis: No Blood Disorders: No Anxiety: Yes Depression: Yes Heart Rhythm Problems: No Cancer: No Cardiac Catheterization: Yes Cardiovascular Problems: Yes (CHF, HEART ATTACK) High Cholesterol: Yes Chest Pain: Yes Congestive Heart Failure: Yes COPD: No Cerebrovascular Accident: No Diabetes: Yes Patient Takes Glucophage: No Dialysis: Yes (RIGHT CHEST VAS CATH) Diminished Hearing: No Endocrine: No Gastrointestinal Disorders: Yes GERD: Yes Genitourinary: Yes Headaches: No Hypertension: Yes Immune Disorder: No Inguinal Hernia: Yes Implanted Vascular Access Dvce: Yes (L FOREARM) Kidney Stones: Yes Musculoskeletal: No Neurologic: Yes (neuropathy) Psychiatric: Yes Reproductive: No Respiratory: Yes ( PNA) Immunizations Current: Yes Migraines: No Myocardial Infarction: Yes (2003) Renal Failure: Yes (CKD, dialysis , , SUN) Seizures: No Thyroid Disease: No Tetanus Vaccination: Unknown Influenza Vaccination: No Past Surgical History Narrative Surgical The patient's past surgical history is significant for a Vas-Cath placement in the right upper chest, colostomy after partial colon resection, right great toe amputation, right leg femoropopliteal bypass, pyloric sphincter injections with Botox related to gastroparesis. Abdominal Surgery: Yes (PART OF COLON AND LARGE INTESTINE REMOVED, COLOSTOMY PLACEMENT) Body Medical Devices: Cardiac Stent Cardiac Surgery: Yes (cardiac cath with stent, ) Coronary Stent: Yes (X 1) Ear Surgery: No Endocrine Surgery: No Eye Surgery: No Genitourinary Surgery: No Gynecologic Surgery: No Oral Surgery: No Thoracic Surgery: No Other Surgery: Yes (LFA fistula, Teeth pulled, colostomy, right leg fem pop) Social History Alcohol Use: No Tobacco Use: Yes (05/08 PPD) Substance Use: No Allergies-Medications (Allergen,Severity, Reaction): Coded Allergies: No Known Allergies (Unverified , 08/22/16) Reported Meds & Prescriptions Reported Meds & Active Scripts Active Urecholine (Bethanechol Chloride) 25 Mg Tab 25 Mg PO Q8HR PRN Protonix (Pantoprazole Sodium) 40 Mg Tab 40 Mg PO BID Reported Bumex (Bumetanide) 2 Mg Tab 2 Mg PO DAILY Enalapril (Enalapril Maleate) Unknown Strength Tab Unknown Dose PO DAILY Norvasc (Amlodipine Besylate) 10 Mg Tab 10 Mg PO DAILY Buspirone (Buspirone HCl) 10 Mg Tab 10 Mg PO BID Citalopram (Citalopram Hydrobromide) 20 Mg Tab 20 Mg PO DAILY Metoprolol Tartrate 50 Mg Tab 50 Mg PO BID Review of Systems Except as stated in HPI: all other systems reviewed are Neg General / Constitutional: No: Fever Eyes: No: Visual changes HENT: No: Headaches Cardiovascular: Positive: Chest Pain or Discomfort, Diaphoresis, Dyspnea on exertion Respiratory: Positive: Cough, Shortness of Breath Gastrointestinal: Positive: Nausea, Vomiting, No: Diarrhea, Abdominal Pain Genitourinary: No: Dysuria Musculoskeletal: No: Pain Skin: No Rash Neurologic: Positive: Weakness (generalized weakness), No: Focal Abnormalities , Change in Mentation, Slurred Speech Psychiatric: No: Depression Endocrine: No: Polydipsia Hematologic/Lymphatic: No: Easy Bruising Physical Exam Narrative General: The patient is a well-developed well-nourished male, dyspneic on arrival with O2 saturations on room air of 75%. No tripoding or accessory muscle use noted initially. Head and Neck exam: Head is normocephalic atraumatic. Eyes: EOMI, pupils are equal round and reactive to light. Nose: Midline septum with pink mucous membranes Mouth: Dentition unremarkable. Moist mucus membranes. Posterior oropharynx is not erythematous. No tonsillar hypertrophy. Uvula midline. Airway patent. Neck: No palpable lymphadenopathy. No nuchal rigidity. No thyromegaly. Cardiovascular: Sinus tachycardia in the low 100s without murmurs, gallops, or rubs. No pulse deficit to the extremities femoral auscultation and palpation of his radial artery. Lungs: Poor air movement bilaterally with diminished breath sounds in bilateral bases noted. The patient has a strong odor of cigarettes. The patient has no accessory muscle use. No paroxysmal abdominal breathing. Abdomen: Soft, without tenderness to palpation in all 4 quadrants of the abdomen. No guarding, rebound, or rigidity. Normal bowel sounds are audible. The patient has across bag in place with brown stool noted. Extremities: No clubbing, cyanosis, or edema. 2+ pulses in all 4 extremities. No calf tenderness on palpation. Back: No costovertebral angle tenderness to palpation. Neurologic Exam: Grossly nonfocal. Data Data Last Documented VS Vital Signs Date Time Temp Pulse Resp B/P Pulse Ox O2 Delivery O2 Flow Rate FiO2 08/22/16 06:50 98.3 111 26 141/84 75 08/22/16 06:36 Partial Rebreather 08/22/16 06:02 15 Orders Electrocardiogram (08/22/16 06:20) B-Type Natriuretic Peptide (08/22/16 06:20) Ckmb (Isoenzyme) Profile (08/22/16 06:20) Complete Blood Count With Diff (08/22/16 06:20) Comprehensive Metabolic Panel (08/22/16 06:20) Magnesium (Mg) (08/22/16 06:20) Prothrombin Time / Inr (Pt) (08/22/16 06:20) Act Partial Throm Time (Ptt) (08/22/16 06:20) Troponin I (08/22/16 06:20) Lipase (08/22/16 06:20) Chest, Single Ap (08/22/16 06:20) Ecg Monitoring (08/22/16 06:20) Bilateral Bp Monitoring (08/22/16 06:20) Iv Access Insert/Monitor (08/22/16 06:20) Oximetry (08/22/16 06:20) Oxygen Administration (08/22/16 06:20) Nitroglycerin 2% Oint (Nitroglycerin 2% (08/22/16 06:30) Sodium Chloride 0.9% Flush (Ns Flush) (08/22/16 06:30) Methylprednisolone So Succ Inj (Solumedr (08/22/16 06:30) Albuterol-Ipratropium Neb (Duoneb Neb) (08/22/16 06:30) Aspirin Chew (Aspirin Chew) (08/22/16 09:00) Aspirin Chew (Aspirin Chew) (08/22/16 06:45) Lactic Acid Sepsis Protocol (08/22/16 06:56) Blood Culture (08/22/16 06:56) Cefepime Inj (Maxipime Inj) (08/22/16 06:56) Azithromycin Inj (Zithromax Inj) (08/22/16 06:56) Labs Laboratory Tests Test 08/22/16 06:20 White Blood Count 19.7 TH/MM3 Red Blood Count 3.70 MIL/MM3 Hemoglobin 10.9 GM/DL Hematocrit 33.4 % Mean Corpuscular Volume 90.3 FL Mean Corpuscular Hemoglobin 29.4 PG Mean Corpuscular Hemoglobin 32.5 % Concent Red Cell Distribution Width 15.9 % Platelet Count 256 TH/MM3 Mean Platelet Volume 10.5 FL Neutrophils (%) (Auto) 79.7 % Lymphocytes (%) (Auto) 12.1 % Monocytes (%) (Auto) 6.7 % Eosinophils (%) (Auto) 1.2 % Basophils (%) (Auto) 0.3 % Neutrophils # (Auto) 15.7 TH/MM3 Lymphocytes # (Auto) 2.4 TH/MM3 Monocytes # (Auto) 1.3 TH/MM3 Eosinophils # (Auto) 0.2 TH/MM3 Basophils # (Auto) 0.1 TH/MM3 CBC Comment AUTO DIFF MDM Medical Decision Making Medical Screen Exam Complete: Yes Emergency Medical Condition: Yes Medical Record Reviewed: Yes Differential Diagnosis Pneumonia, versus pulmonary edema with pleural effusion, versus congestive heart failure, versus acute coronary syndrome Narrative Course During the course of the patients emergency department visit, the patients history, examination, and differential diagnosis were reviewed with the patient. The patient had IV access obtained and blood work sent for analysis. The patient was placed on a environmental monitoring technician with oximetry and blood pressure monitoring. An EKG was done on arrival. The patient's EKG shows a sinus tachycardia nonspecific ST-T wave abnormalities, no acute ST segment elevation is noted. The patient was initially provided a DuoNeb 3 was administered, Solu-Medrol 125 mg IV was given, aspirin 162 mg by mouth 1 was given, nitroglycerin 1 inch to the chest wall was provided. Radiology studies were reviewed and remarkable for a chest x-ray that shows bilateral lower lung field consolidation that is new since his admission on August 02, 2016. Given these findings a lactic acid was added to his workup along with blood cultures 2 and antibiotic coverage for possible pneumonia with cefepime 2 g IV, Zithromax 500 IV. The patient's case is discussed with the oncoming emergency physician. The patient will be dispositioned after the patient's completion of his workup. The patient will be admitted to the hospital. Diagnosis Primary Impression: Hypoxemia Additional Impression: Chest pain Qualified Code: R07.9 - Chest pain, unspecified type Admitting Information Admitting Physician Requests: Admit Ruby Mix MD Aug 22, 2016 07:03
[2016-08-22 07:05] LABS: HEMO FLAGS AUTO DIFF
[2016-08-22 07:12] LABS: APTT (PATIENT) 26.8 SEC (24.3-30.1); INTERNATIONAL NORMALIZED RATIO 0.9 RATIO; PROTHROMBIN TIME - PATIENT 10.4 SEC (9.8-11.6)
[2016-08-22 07:21] LABS: ALT (GPT) 20 U/L (12-78); ANION GAP 14 MEQ/L (5-15); AST (GOT) 13 U/L (15-37); BLOOD UREA NITROGEN 37 MG/DL (7-18); CHLORIDE 108 MEQ/L (98-107); GLOMERULAR FILTRATION RATE 10 ML/MIN (>89); MAGNESIUM 1.7 MG/DL (1.5-2.5); POTASSIUM 4.6 MEQ/L (3.5-5.1); SODIUM (NA) 142 MEQ/L (136-145)
[2016-08-22 07:25] LABS: ALKALINE PHOSPHATASE 117 U/L (45-117); TOTAL BILIRUBIN ADULT 0.3 MG/DL (0.2-1.0)
[2016-08-22 07:36] LABS: CREATINE KINASE 84 U/L (39-308)
--- NOTE | 2016-08-22 07:40 | EKG ---
Date Performed: 08/22/2016 Time Performed: 06:06:16 PTAGE: 56 years EKG: BASELINE ARTIFACT PRESENT. SINUS TACHYCARDIA NONSPECIFIC ST & T-WAVE ABNORMALITY ABNORMAL R HYTHM ECG INTERPRETATION BASED ON A DEFAULT AGE OF 40 YEARS COMPARED TO PRIOR ELECTROCARDIOGRAM, Both EKGs Artifact and are difficult to compare. PREVIOUS TRACING : 08/01/2016 20.22 DOCTOR: Dallas De Jesus Interpretating Date/Time 08/22/2016 07:38:58
[2016-08-22 07:41] LABS: BANDS 5 % (0-6); METAMYELOCYTES 2 % (0-1); MYELOCYTES 1 % (0-0); NEUTROPHIL # MANUAL DIFF 16.2 TH/MM3 (1.8-7.7); POLYS (SEG NEUTROPHILS) 74 % (16-70); WBC DIFF SAMPLE 100
[2016-08-22 07:42] LABS: PLATELET ESTIMATE SMEAR NORMAL (NORMAL); PLATELET MORPHOLOGY ENLARGED (NORMAL); SCAN/DIFF FINAL DIFF MANUAL
--- NOTE | 2016-08-22 08:17 | PD ---
Physical Exam Date Seen by Provider: Aug 22, 2016 Time Seen by Provider: 07:00 Narrative Patient initially seen by Dr. Mix, please see Dr. Mix's note for further information. He came initially with shortness of breath, hypoxic with a 75% oxygenation on room air. He was treated with Solu-Medrol, nebulizers, and nitroglycerin with improvement in symptoms. Chest x-ray reveals bilateral infiltrates questionable for fluid overload versus bilateral pneumonia. Cefepime and Zithromax was also given in the ER. Sepsis evaluation initiated. Lab work returns showing elevated lactate of 1.4. His BNP is 2800. At this point, patient was reevaluated by me at 8 AM and is feeling improved. My plan would be to admit the patient for further treatment. Case was discussed with [facility] practice service Dr. Camarena for admission. Data Data Last Documented VS Vital Signs Date Time Temp Pulse Resp B/P Pulse Ox O2 Delivery O2 Flow Rate FiO2 08/22/16 07:26 98.6 93 18 130/68 98 Partial Rebreather 15 Orders Electrocardiogram (08/22/16 06:20) B-Type Natriuretic Peptide (08/22/16 06:20) Ckmb (Isoenzyme) Profile (08/22/16 06:20) Complete Blood Count With Diff (08/22/16 06:20) Comprehensive Metabolic Panel (08/22/16 06:20) Magnesium (Mg) (08/22/16 06:20) Prothrombin Time / Inr (Pt) (08/22/16 06:20) Act Partial Throm Time (Ptt) (08/22/16 06:20) Troponin I (08/22/16 06:20) Lipase (08/22/16 06:20) Chest, Single Ap (08/22/16 06:20) Ecg Monitoring (08/22/16 06:20) Bilateral Bp Monitoring (08/22/16 06:20) Iv Access Insert/Monitor (08/22/16 06:20) Oximetry (08/22/16 06:20) Oxygen Administration (08/22/16 06:20) Nitroglycerin 2% Oint (Nitroglycerin 2% (08/22/16 06:30) Sodium Chloride 0.9% Flush (Ns Flush) (08/22/16 06:30) Methylprednisolone So Succ Inj (Solumedr (08/22/16 06:30) Albuterol-Ipratropium Neb (Duoneb Neb) (08/22/16 06:30) Aspirin Chew (Aspirin Chew) (08/22/16 09:00) Aspirin Chew (Aspirin Chew) (08/22/16 06:45) Lactic Acid Sepsis Protocol (08/22/16 06:56) Blood Culture (08/22/16 06:56) Cefepime Inj (Maxipime Inj) (08/22/16 06:56) Azithromycin Inj (Zithromax Inj) (08/22/16 06:56) Labs Laboratory Tests Test 08/22/16 08/22/16 06:20 07:17 White Blood Count 19.7 TH/MM3 Red Blood Count 3.70 MIL/MM3 Hemoglobin 10.9 GM/DL Hematocrit 33.4 % Mean Corpuscular Volume 90.3 FL Mean Corpuscular Hemoglobin 29.4 PG Mean Corpuscular Hemoglobin 32.5 % Concent Red Cell Distribution Width 15.9 % Platelet Count 256 TH/MM3 Mean Platelet Volume 10.5 FL Neutrophils (%) (Auto) 79.7 % Lymphocytes (%) (Auto) 12.1 % Monocytes (%) (Auto) 6.7 % Eosinophils (%) (Auto) 1.2 % Basophils (%) (Auto) 0.3 % Neutrophils # (Auto) 15.7 TH/MM3 Lymphocytes # (Auto) 2.4 TH/MM3 Monocytes # (Auto) 1.3 TH/MM3 Eosinophils # (Auto) 0.2 TH/MM3 Basophils # (Auto) 0.1 TH/MM3 CBC Comment AUTO DIFF Differential Total Cells 100 Counted Neutrophils % (Manual) 74 % Band Neutrophils % 5 % Lymphocytes % 10 % Monocytes % 8 % Neutrophils # (Manual) 16.2 TH/MM3 Metamyelocytes 2 % Myelocytes 1 % Differential Comment FINAL DIFF MANUAL Platelet Estimate NORMAL Platelet Morphology Comment ENLARGED Red Cell Morphology Comment NORMAL Prothrombin Time 10.4 SEC Prothromb Time International 0.9 RATIO Ratio Activated Partial 26.8 SEC Thromboplast Time Sodium Level 142 MEQ/L Potassium Level 4.6 MEQ/L Chloride Level 108 MEQ/L Carbon Dioxide Level 20.0 MEQ/L Anion Gap 14 MEQ/L Blood Urea Nitrogen 37 MG/DL Creatinine 6.07 MG/DL Estimat Glomerular Filtration 10 ML/MIN Rate Random Glucose 173 MG/DL Calcium Level 8.2 MG/DL Magnesium Level 1.7 MG/DL Total Bilirubin 0.3 MG/DL Aspartate Amino Transf 13 U/L (AST/SGOT) Alanine Aminotransferase 20 U/L (ALT/SGPT) Alkaline Phosphatase 117 U/L Total Creatine Kinase 84 U/L Troponin I 0.03 NG/ML B-Type Natriuretic Peptide 2838 PG/ML Total Protein 7.6 GM/DL Albumin 3.2 GM/DL Lipase 162 U/L Lactic Acid Level 1.4 mmol/L [facility] Medical Record Reviewed: Yes Supervised Visit with ALIDA: No Diagnosis Primary Impression: Hypoxemia Additional Impressions: Chest pain Qualified Code: R07.9 - Chest pain, unspecified type PNA (pneumonia) CHF (congestive heart failure) Admitting Information Admitting Physician Requests: it Eliana Oliver MD Aug 22, 2016 08:17
--- NOTE | 2016-08-22 08:44 | HHI.HP ---
[facility] Service Family Medicine Primary Care Physician [facility] Admission Diagnosis pneumonia/sepsis/fluid overload/hypoxia Diagnoses: International Travel<30 Days: No Contact w/Intl Traveler<30days: No Known Affected Area: No History of Present Illness 56 year old male with PMH of ESRD on dialysis, CHF, NE with stent, diabetes type II, peripheral arterial disease, peripheral neuropathy, colostomy bag. He had rather sudden onset of dyspnea and chest pain that started at midnight. The pain bore through to his upper back and radiated to his shoulder and arm. He normally is able to walk 2 to 3 blocks, but last night could not walk very far at all. The pain was 8/10, but now is much better. He vomited once when he got to the ED and has felt sweaty, chills, and lightheaded. He has non-productive coughing. He reports no new swelling in his extremities. He has runny nose, no sore throat. No abdominal pain or diarrhea. No calf tenderness or swelling. Currently he is breathing much better than at admission and chest pain is only mild at this point. (Jorge Camarena MD R2) Review of Systems Constitutional: COMPLAINS OF: Diaphoretic episodes, Weight gain, Chills, DENIES: Weight loss, Dizziness, Change in appetite, Night Sweats Endocrine: DENIES: Heat/cold intolerance, Polydipsia, Polyuria, Polyphagia Eyes: DENIES: Diplopia, Eye pain, Vision loss, Double Vision Ears, nose, mouth, throat: COMPLAINS OF: Running Nose, DENIES: Hearing loss, Nasal discharge, Oral lesions, Throat pain, Hoarseness, Toothache, Odynophagia Respiratory: COMPLAINS OF: Cough, Shortness of breath, DENIES: Wheezing, Hemoptysis, Sputum production Cardiovascular: COMPLAINS OF: Chest pain, Palpitations (felt fast), Dyspnea on Exertion, Orthopnea, Claudication, DENIES: Syncope, Lower Extremity Edema Gastrointestinal: COMPLAINS OF: Nausea, Vomiting, DENIES: Abdominal pain, Black stools, Bloody stools, Diarrhea Genitourinary: DENIES: Urinary frequency, Dysuria, Nocturia Musculoskeletal: DENIES: Neck pain Integumentary: DENIES: Rash Hematologic/lymphatic: DENIES: Lymphadenopathy Immunologic/allergic: DENIES: Eczema Neurologic: DENIES: Headache, Seizures, Tremor, Poor Balance Psychiatric: DENIES: Anxiety, Depression, Suicidal Ideation (Jorge Camarena MD R2) Past Family Social History Past Medical History NE with stent 12 years ago Colostomy bag for perforated colon Diabetes Type II HTN Neuropathy in hands and feet ESRD on dialysis, Tues, Thurs, Sat PAD CHF Dr. Marquez - PCP Dr. Kennedy: Order Administrator No assistance specialist Past Surgical History Amputation of big toe on right Colostomy bag Vascular bypass in right leg Coronary artery stent Reported Medications Reported Meds & Active Scripts Active Urecholine (Bethanechol Chloride) 25 Mg Tab 25 Mg PO Q8HR PRN Protonix (Pantoprazole Sodium) 40 Mg Tab 40 Mg PO BID Reported Bumex (Bumetanide) 2 Mg Tab 2 Mg PO DAILY Enalapril (Enalapril Maleate) Unknown Strength Tab Unknown Dose PO DAILY Norvasc (Amlodipine Besylate) 10 Mg Tab 10 Mg PO DAILY Buspirone (Buspirone HCl) 10 Mg Tab 10 Mg PO BID Metoprolol Tartrate 50 Mg Tab 50 Mg PO BID (Jorge Camarena MD R2) Allergies: Coded Allergies: No Known Allergies (Unverified , 08/22/16) Family History Mother: leukemia Brother: brain aneurysm Father: in car accident Social History Smoke: half pack per day, used to smoke pack per day, since age 16 Alcohol: None Drug use: None Retired from [employer] with cane Lives alone, not Neighbor helps out (Jorge Camraena MD R2) Physical Exam Vital Signs Vital Signs Date Time Temp Pulse Resp B/P Pulse Ox O2 Delivery O2 Flow Rate FiO2 08/22/16 07:26 98.6 93 18 130/68 98 Partial Rebreather 15 08/22/16 06:50 98.3 111 26 141/84 75 08/22/16 06:36 98 Partial Rebreather 08/22/16 06:02 26 90 Non-Rebreather 15 08/22/16 06:02 111 26 90 Non-Rebreather 08/22/16 06:02 90 Non-Rebreather 15 Physical Exam GENERAL: Sitting up in bed, oxygen mask, no respiratory distress SKIN: Sacral area with erythema, no skin breakdown HEAD: Atraumatic. Normocephalic. No temporal or scalp tenderness. EYES: Pupils equal round and reactive. Extraocular motions intact. No scleral icterus. No injection or drainage. ENT: Nose without bleeding, purulent drainage or septal hematoma. Throat without erythema, tonsillar hypertrophy or exudate. Uvula midline. Airway patent. NECK: Trachea midline. No JVD or lymphadenopathy. Supple, nontender, no meningeal signs. CARDIOVASCULAR: Tachycardia, regular rhythm without murmurs, gallops, or rubs. RESPIRATORY: Crackles in lung bases. On partial rebreather mask. No respiratory distress. 98% O2 saturation currently. GASTROINTESTINAL: Abdomen soft, non-tender, nondistended. No hepato-splenomegaly , or palpable masses. No guarding. Colostomy bag in place with soft brown stool. MUSCULOSKELETAL: Extremities without clubbing, cyanosis, or edema. No joint tenderness, effusion, or edema noted. No calf tenderness. Negative Homans sign bilaterally. Missing right great toe from prior toe amputation. NEUROLOGICAL: Awake and alert. Cranial nerves II through XII intact. Motor and sensory grossly within normal limits. Normal speech. Laboratory Laboratory Tests Test 08/22/16 08/22/16 06:20 07:17 White Blood Count 19.7 Red Blood Count 3.70 Hemoglobin 10.9 Hematocrit 33.4 Mean Corpuscular Volume 90.3 Mean Corpuscular Hemoglobin 29.4 Mean Corpuscular Hemoglobin 32.5 Concent Red Cell Distribution Width 15.9 Platelet Count 256 Mean Platelet Volume 10.5 Neutrophils (%) (Auto) 79.7 Lymphocytes (%) (Auto) 12.1 Monocytes (%) (Auto) 6.7 Eosinophils (%) (Auto) 1.2 Basophils (%) (Auto) 0.3 Neutrophils # (Auto) 15.7 Lymphocytes # (Auto) 2.4 Monocytes # (Auto) 1.3 Eosinophils # (Auto) 0.2 Basophils # (Auto) 0.1 CBC Comment AUTO DIFF Differential Total Cells 100 Counted Neutrophils % (Manual) 74 Band Neutrophils % 5 Lymphocytes % 10 Monocytes % 8 Neutrophils # (Manual) 16.2 Metamyelocytes 2 Myelocytes 1 Differential Comment FINAL DIFF MANUAL Platelet Estimate NORMAL Platelet Morphology Comment ENLARGED Red Cell Morphology Comment NORMAL Prothrombin Time 10.4 Prothromb Time International 0.9 Ratio Activated Partial 26.8 Thromboplast Time Sodium Level 142 Potassium Level 4.6 Chloride Level 108 Carbon Dioxide Level 20.0 Anion Gap 14 Blood Urea Nitrogen 37 Creatinine 6.07 Estimat Glomerular Filtration 10 Rate Random Glucose 173 Calcium Level 8.2 Magnesium Level 1.7 Total Bilirubin 0.3 Aspartate Amino Transf 13 (AST/SGOT) Alanine Aminotransferase 20 (ALT/SGPT) Alkaline Phosphatase 117 Total Creatine Kinase 84 Troponin I 0.03 B-Type Natriuretic Peptide 2838 Total Protein 7.6 Albumin 3.2 Lipase 162 Lactic Acid Level 1.4 Date/Time Procedure Status Source Growth 08/22/16 06:15 Aerobic Blood Culture Received Blood Peripheral Pending 08/22/16 06:15 Anaerobic Blood Culture Received Blood Peripheral Pending (Jorge Camarena MD R2) Result Diagram: 08/22/1661908/22/16619 Imaging Last 72 hours Impressions Chest X-Ray 08/22/16619 Signed Impressions: Service Date/Time: Monday, August 22, 2016 06:19 - CONCLUSION: Bilateral lower lobe consolidations left greater than right entirely new since July. Dual- lumen catheter in good position. No pneumothorax. Syd Salmeron MD (Jorge Camarena MD R2) Septic Shock Reassessment Heart: Other (tachycardia) Lungs: Crackles Skin: Warm Capillary Refill: <2 seconds (Jorge Camarena MD R2) Assessment and Plan Assessment and Plan 56 year old male presents with rather acute onset of dyspnea and chest pain. Code Status FULL CODE Discussed Condition With Discussed with Dr. Curtis and Dr. Sawyer (Jorge Camarena MD R2) Attending Attestation Patient seen and examined. Case reviewed and discussed with the resident team. Agree with plan of care as discussed with me and documented in the resident note. (Alaina Curtis MD) Problem List: (1) Dyspnea Status: Acute Plan: Dyspnea with chest pain started at midnight, rather acute onset. Chest x- ray showing Bilateral infiltrates in the bases, crackles in bases on physical exam. No significant peripheral edema. BNP is 2838. Currently with good oxygen saturation on partial rebreather mask. Differential diagnosis: PE, NE, pneumonia , CHF exacerbation, COPD, aortic dissection. - Oxygen supplementation. - Duonebs every 4 hours while awake. - Prednisone 40 mg daily - Cefepime, Azithromycin to cover hospital acquired organisms - V/Q scan to help rule out PE - Ultrasound aorta to rule out aortic dissection - Counseling on smoking cessation (2) Chest pain Status: Acute Plan: Rather sudden onset of chest pain at about midnight, with radiation to the left shoulder and into the upper back. Wells score for PE is 6. Has tachycardia. - Trend Troponin levels and EKG's. - Morphine, Dilaudid for pain management. - Oxygen supplementation as needed. - V/Q scan and aortic ultrasound (3) PNA (pneumonia) Status: Acute Plan: Possibly hospital/healthcare associated pneumonia with history of dialysis and hospital admission recently (August 01). WBC 19.7, tachycardic. No fevers. Lactic acid normal. - Continue Cefepime and Azithromycin - Monitor fluid status. - (4) CHF (congestive heart failure) Status: Acute Plan: ECHO in November 2015 showed 60% EF. Does not report significant dyspnea or edema at baseline. Does have some orthopnea. Lungs appear fluid overloaded on chest x-ray. BNP significantly elevated. - Sodium and fluid restriction. - Continue Bumex from home 2 mg daily. - Lasix PRN - Monitor I's and O's. - Continue beta mary, jerica inhibitor - Repeat ECHO to assess heart function - May benefit from spironolactone depending on ECHO (5) Sacral decubitus ulcer Status: Acute Plan: Erythematous sacrum - Frequent turns, monitor for skin breakdown. - Keep area dry. (6) ESRD on hemodialysis Status: Chronic Plan: ESRD on dialysis Kuldip Steward, [place]. Dr. Kennedy is tele tech. Creatinine is 6.07, looks like 4.5 is baseline. - Consult nephrology. - Hemodialysis per nephrology recommendations. - Renally dose medications. - Avoid nephrotoxic agents. (7) CAD (coronary artery disease) Status: Chronic Plan: History of CAD with stent 12 years ago. - Continue aspirin 81 mg daily. - Pravastatin 40 mg daily. (8) Anemia Status: Chronic Plan: Chronic anemia, likely of CKD. - EPO at discretion of nephrology - Check iron studies (9) Diabetes type 2, uncontrolled Status: Chronic Plan: Diabetes type 2, not on diabetic medication per patient. Has right great toe amputation from PAD and peripheral neuropathy. - SS insulin, low dose - Accuchecks (10) Peripheral neuropathy Status: Chronic Plan: Has significant pain from peripheral neuropathy. - Morphine and Dilaudid for pain management. - Monitor for sedation. (11) DVT prophylaxis Status: Acute Plan: Heparin 5000 mg tid Bilateral SCD's (12) Nutrition, metabolism, and development symptoms Status: Acute Plan: - Fluid and sodium restriction - Renal diet - Monitor electrolytes (Jorge Camarena MD R2) Physician Certification 2 Midnight Certification Type: Admission for Inpatient Services Order for Inpatient Services The services are ordered in accordance with Medicare regulations or non- Medicare payer requirements, as applicable. In the case of services not specified as inpatient-only, they are appropriately provided as inpatient services in accordance with the 2-midnight benchmark. Estimated LOS (days): 3 days is the estimated time the patient will need to remain in the hospital, assuming treatment plan goals are met and no additional complications. Post-Hospital Plan: Not yet determined (Jorge Camarena MD R2) Problem Qualifiers (1) Dyspnea: Qualified Code: R06.02 - Shortness of breath (2) Chest pain: Qualified Code: R07.2 - Precordial pain (3) PNA (pneumonia): Qualified Code: J18.9 - Pneumonia due to infectious organism, unspecified laterality, unspecified part of lung (4) CHF (congestive heart failure): Qualified Code: I50.9 - Acute congestive heart failure, unspecified congestive heart failure type (5) Sacral decubitus ulcer: Qualified Code: L89.151 - Decubitus ulcer of sacral region, stage 1 (6) CAD (coronary artery disease): Qualified Code: I25.119 - Coronary artery disease involving [place] heart with angina pectoris, unspecified vessel or lesion type (7) Anemia: Qualified Code: N18.9 - Anemia in chronic kidney disease (8) Diabetes type 2, uncontrolled: Qualified Code: E11.22 - Uncontrolled type 2 diabetes mellitus with chronic kidney disease on chronic dialysis, unspecified parts counterman insulin use status (9) Peripheral neuropathy: Qualified Code: G59 - Mononeuropathy due to underlying disease Jorge Camarena MD R2 Aug 22, 2016 08:44 Alaina Curtis MD Aug 25, 2016 12:39
[2016-08-22] MEDS ORDERED: ENAL10TA PO (08:53)
[2016-08-22] MEDS ORDERED: VENL37.595 PO (08:53)
[2016-08-22] MEDS ORDERED: ASPIRIN 81 MG CHEW TAB CHEW SCH (09:00)
[2016-08-22] MEDS ORDERED: NALOXONE HCL 0.4 MG/ML AMP IV PRN ×2 (09:15→10:00)
[2016-08-22] MEDS ORDERED: SODIUM CHLORIDE 0.9% FLUSH 10 ML FLUSH IV FLUSH PRN ×3 (09:15→11:00)
[2016-08-22] MEDS ORDERED: DOCUSATE SODIUM 50 MG/SENNA 8.6 MG TAB PO PRN (09:15)
[2016-08-22] MEDS ORDERED: RESP: ALBUTEROL 2.5 MG/3 ML NEB (PRN) NEB (09:15)
[2016-08-22] MEDS ORDERED: GLUCAGON 1 MG/ML VIAL OTHER PRN (09:45)
[2016-08-22] MEDS ORDERED: DEXTROSE 50% IN WATER 50 ML VIAL(D50) IV PUSH PRN (09:45)
[2016-08-22] MEDS ORDERED: ACETAMINOPHEN 325 MG TAB PO PRN ×2 (10:00→11:00)
[2016-08-22] MEDS ORDERED: HYDROmorphone HCL PF 1 MG/ML VIAL IV PRN (10:00)
[2016-08-22] MEDS ORDERED: MORPHINE SULFATE 4 MG/ML INJ IV PRN (10:00)
--- NOTE | 2016-08-22 10:48 | PD.CONS ---
HPI Service Nephrology Consult Requested By Dr. Sawyer Reason for Consult ESRD on HD Primary Care Physician [facility] History of Present Illness The patient is a 56 yo [place] male who is known to our services for ESRD on HD. Came to the ED for evaluation this AM as he was SOB, having CP and very weak. Missed regularly scheduled HD this AM. CXR reveals bibasilar PNA. Just finished outpatient Vancomycin on Sunday for recent admission for bacteremia. Says his current symptoms came on rather suddenly last night that worsened today. (Eugenie Britton) Review of Systems Respiratory: COMPLAINS OF: Cough, Shortness of breath Cardiovascular: COMPLAINS OF: Chest pain (Eugenie Britton) Past Family Social History Allergies: Coded Allergies: No Known Allergies (Unverified , 08/22/16) Past Medical History End-stage renal disease Congestive heart failure Hypertension Secondary hyperparathyroidism renal disease Diabetes mellitus Peripheral arterial disease/peripheral vascular disease Anemia renal disease Hx of ischemic colitis requiring partial colectomy and colostomy Hx gangrene right great toe Gastritis/Esophagitis Atherosclerotic vascular disease Depression/Anxiety C Diff history Mitral regurgitation Secondary hyperparathyroidism secondary to Vitamin D Deficiency Gastroparesis Recent bacteremia--source RIJ PermCath Past Surgical History Bypass of the right leg. Amputation of the right big toe. Hemicolectomy/Colostomy. PCI status post stent 2 years ago after an UT. Left av fistula Right tunneled subclavian dialysis catheter placement EGD Reported Medications Reported Meds & Active Scripts Active Urecholine (Bethanechol Chloride) 25 Mg Tab 25 Mg PO Q8HR PRN Protonix (Pantoprazole Sodium) 40 Mg Tab 40 Mg PO BID Reported Enalapril (Enalapril Maleate) 10 Mg Tab 10 Mg PO DAILY Venlafaxine ER 24 HR (Venlafaxine HCl) 37.5 Mg Cap 37.5 Mg PO DAILY Bumex (Bumetanide) 2 Mg Tab 2 Mg PO DAILY Norvasc (Amlodipine Besylate) 10 Mg Tab 10 Mg PO DAILY Buspirone (Buspirone HCl) 10 Mg Tab 10 Mg PO BID Metoprolol Tartrate 50 Mg Tab 50 Mg PO BID Active Ordered Medications Current Medications Medications (Trade) Dose Ordered Sig/Hallie Route Start Time Stop Time Status Last Admin (Norvasc) 10 mg DAILY PO 08/22/16 11:00 (Urecholine) 25 mg Q8HR PRN PO 08/22/16 09:00 UNV (Bumetanide) 2 mg DAILY PO 08/22/16 11:00 (Buspar) 10 mg BID PO 08/22/16 11:00 (Lopressor) 50 mg BID PO 08/22/16 11:00 (Protonix) 40 mg BID PO 08/22/16 11:00 (Vasotec) 10 mg DAILY PO 08/22/16 11:00 (Effexor Xr) 37.5 mg DAILY PO 08/22/16 11:00 (NS Flush) 2 ml UNSCH PRN IV FLUSH 08/22/16 09:15 (NS Flush) 2 ml BID IV FLUSH 08/22/16 21:00 (Zofran Inj) 4 mg Q6H PRN IVP 08/22/16 09:15 Heparin Sodium (Porcine) 5000 units 5,000 units Q8H SQ 08/22/16 11:00 Cefepime HCl 1000 mg/Sodium Chloride 100 ml @ 200 mls/hr Q24H IV 08/23/16 09:00 (Zithromax Inj/ NS 250 ml Inj) 250 ml @ 250 mls/hr Q24H IV 08/23/16 08:00 (Deltasone) 40 mg DAILY PO 08/23/16 09:00 (Kanwal-Colace) 1 tab BID PRN PO 08/22/16 09:15 (D50w (Vial) Inj) 25 ml UNSCH PRN IV PUSH 08/22/16 09:45 (Glucagon Inj) 1 mg UNSCH PRN OTHER 08/22/16 09:45 (Aspirin Chew) 81 mg DAILY CHEW 08/23/16 09:00 (Tylenol) 650 mg Q6H PRN PO 08/22/16 10:00 (Morphine Inj) 1 mg Q3H PRN IV 08/22/16 10:00 (Morphine Inj) 2 mg Q3H PRN IV 08/22/16 10:00 (Dilaudid Pf Inj) 0.5 mg Q3H PRN IV 08/22/16 10:00 (Narcan Inj) 0.4 mg UNSCH PRN IV 08/22/16 10:00 (Pravachol) 40 mg DAILY PO 08/22/16 11:00 Family History NC Social History Lives locally Single Tobacco use Marijuana use No EtOH use (Britton,Eugenie Nicole PA) Physical Exam Vital Signs Vital Signs Date Time Temp Pulse Resp B/P Pulse Ox O2 Delivery O2 Flow Rate FiO2 08/22/16 09:30 97 Partial Rebreather 15 08/22/16 09:30 88 20 100/55 99 Partial Rebreather 15 08/22/16 07:26 98.6 93 18 130/68 98 Partial Rebreather 15 08/22/16 06:50 98.3 111 26 141/84 75 08/22/16 06:36 98 Partial Rebreather 08/22/16 06:02 26 90 Non-Rebreather 15 08/22/16 06:02 111 26 90 Non-Rebreather 08/22/16 06:02 90 Non-Rebreather 15 Physical Exam GENERAL: Resting in bed with nonrebreather on. NAD SKIN: Warm and dry. HEAD: Atraumatic. Normocephalic. EYES: Pupils equal and round. No scleral icterus. No injection or drainage. ENT: No nasal bleeding or discharge. Mucous membranes pink and moist. NECK: Trachea midline. No JVD. CARDIOVASCULAR: Regular rate and rhythm. RESPIRATORY: No accessory muscle use. Clear to auscultation. Decreased breath sounds in bases. GASTROINTESTINAL: Abdomen soft, non-tender, nondistended. Hepatic and splenic margins not palpable. MUSCULOSKELETAL: Extremities without clubbing, cyanosis. 1+ pitting edema BLE R >L. Noted sutures still present from bypass grafting done several months ago. Does not appear to be infected. NEUROLOGICAL: Awake and alert. Normal speech. PSYCHIATRIC: Appropriate mood and affect; insight and judgment normal. Laboratory Laboratory Tests Test 08/22/16 08/22/16 06:20 07:17 White Blood Count 19.7 Red Blood Count 3.70 Hemoglobin 10.9 Hematocrit 33.4 Mean Corpuscular Volume 90.3 Mean Corpuscular Hemoglobin 29.4 Mean Corpuscular Hemoglobin 32.5 Concent Red Cell Distribution Width 15.9 Platelet Count 256 Mean Platelet Volume 10.5 Neutrophils (%) (Auto) 79.7 Lymphocytes (%) (Auto) 12.1 Monocytes (%) (Auto) 6.7 Eosinophils (%) (Auto) 1.2 Basophils (%) (Auto) 0.3 Neutrophils # (Auto) 15.7 Lymphocytes # (Auto) 2.4 Monocytes # (Auto) 1.3 Eosinophils # (Auto) 0.2 Basophils # (Auto) 0.1 CBC Comment AUTO DIFF Differential Total Cells 100 Counted Neutrophils % (Manual) 74 Band Neutrophils % 5 Lymphocytes % 10 Monocytes % 8 Neutrophils # (Manual) 16.2 Metamyelocytes 2 Myelocytes 1 Differential Comment FINAL DIFF MANUAL Platelet Estimate NORMAL Platelet Morphology Comment ENLARGED Red Cell Morphology Comment NORMAL Prothrombin Time 10.4 Prothromb Time International 0.9 Ratio Activated Partial 26.8 Thromboplast Time Sodium Level 142 Potassium Level 4.6 Chloride Level 108 Carbon Dioxide Level 20.0 Anion Gap 14 Blood Urea Nitrogen 37 Creatinine 6.07 Estimat Glomerular Filtration 10 Rate Random Glucose 173 Calcium Level 8.2 Magnesium Level 1.7 Total Bilirubin 0.3 Aspartate Amino Transf 13 (AST/SGOT) Alanine Aminotransferase 20 (ALT/SGPT) Alkaline Phosphatase 117 Total Creatine Kinase 84 Troponin I 0.03 B-Type Natriuretic Peptide 2838 Total Protein 7.6 Albumin 3.2 Lipase 162 Lactic Acid Level 1.4 Date/Time Procedure Status Source Growth 08/22/16 06:15 Aerobic Blood Culture Received Blood Peripheral Pending 08/22/16 06:15 Anaerobic Blood Culture Received Blood Peripheral Pending (Eugenie Britton) Result Diagram: 08/22/1661908/22/16619 Imaging Last Impressions Chest X-Ray 08/22/16619 Signed Impressions: Service Date/Time: Monday, August 22, 2016 06:19 - CONCLUSION: Bilateral lower lobe consolidations left greater than right entirely new since July. Dual- lumen catheter in good position. No pneumothorax. Syd Salmeron MD (Eugenie Britton) Assessment and Plan Problem List: (1) ESRD on hemodialysis Plan: HD today as per regular TTS schedule. Will order repeat BCx to f/u on recent bacteremia. Medications should be adjusted for the patient's ESRD. Avoid gadolinium (2) PNA (pneumonia) Plan: Abx as per primary (3) HTN (hypertension) Plan: Continue on current home regimen. (4) Diabetes type 2, uncontrolled Plan: Mgmt as per primary (5) Anemia Plan: Stable. Continue to monitor. (Eugenie Britton) Assessment and Plan The exam, history, and the medical decision-making described in the above note were completed with the assistance of the PA-C. I reviewed and agree with the findings presented. (David Kennedy MD) Problem Qualifiers (1) PNA (pneumonia): Qualified Code: J18.9 - Pneumonia due to infectious organism, unspecified laterality, unspecified part of lung (2) Diabetes type 2, uncontrolled: Qualified Code: E11.22 - Uncontrolled type 2 diabetes mellitus with chronic kidney disease on chronic dialysis, unspecified skilled nursing insulin use status (3) Anemia: Qualified Code: N18.9 - Anemia in chronic kidney disease Eugenie Britton Aug 22, 2016 10:47 David Kennedy MD Aug 23, 2016 16:54
[2016-08-22] MEDS ORDERED: SODIUM CHLOR 0.9% 1000 ML INJ 1,000 ML IV PRN ×3 (10:49)
[2016-08-22] MEDS ORDERED: diphenhydrAMINE HCL 25 MG CAP PO PRN (11:00)
[2016-08-22] MEDS ORDERED: HEPARIN SODIUM - IV 10,000 UNITS/10 ML VIAL PRN (11:00)
[2016-08-22] MEDS ORDERED: MANNITOL 12.5 GM/50 ML VIAL IV PRN (11:00)
[2016-08-22] MEDS ORDERED: HEPARIN SODIUM - IV 10,000 UNITS/10 ML VIAL IVF PRN (11:00)
[2016-08-22] MEDS ORDERED: cloNIDine HCL 0.1 MG TAB PO PRN (11:00)
[2016-08-22] MEDS: HEPARIN SODIUM - SQ 10,000 UNITS/ML VIAL SQ SCH ×2 (11:00→19:00)
[2016-08-22] MEDS ORDERED: ALBUMIN HUMAN 25% 25 GM/100 ML BAGP IV PRN (11:00)
[2016-08-22] MEDS ORDERED: GELATIN 12 MM/7 MM FOAM TOP PRN (11:00)
[2016-08-22] MEDS ORDERED: ONDANSETRON HCL 4 MG/2 ML VIAL IV PRN (11:00)
[2016-08-22] MEDS ORDERED: GENTAMICIN SULFATE (DIALYSIS USE ONLY) 20 MG/2 ML VIAL IV PRN (11:00)
[2016-08-22] MEDS ORDERED: NITROGLYCERIN 0.4 MG SL 25 TABS/BTL SL PRN (11:00)
[2016-08-22] MEDS: MORPHINE SULFATE 4 MG/ML INJ IV PRN ×3 (11:03→22:03)
[2016-08-22] MEDS ORDERED: BETHANECHOL CHL 25 MG TAB PO PRN (11:15)
[2016-08-22] MEDS: RESP: ALBUTEROL 2.5 MG/IPRATROPIUM 0.5 MG NEB (SCH) NEB ×3 (12:00→19:55)
--- NOTE | 2016-08-22 12:28 | RADRPT ---
EXAM DATE/TIME: 08/22/2016 11:43 [facility] COMPARISON: CHEST SINGLE AP, August 22, 2016, 6:19. INDICATIONS : Substernal chest pain with dyspnea. DOSE: 8.5 mCi Tc99m MAA IV 0.60 mCi Tc99m DTPA aerosol MEDICAL HISTORY : Congestive hearrt failure. Peripheral vascular disease. Renal disease, end stage. Diabetes, myocardia l infarction and coronary artery disease. SURGICAL HISTORY : Colostomy. Coronary artery stent. Vascular bypass on the right and amputation great toe right foot. ENCOUNTER: Initial ACUITY: 1 day PAIN SCALE: 5/10 LOCATION: Left chest TECHNIQUE: Following five minutes of tidal breathing of DTPA aerosol, planar images of the lungs were performed in eight projections. The patient was then injected with MAA, and eight-view perfusion scan was perf ormed. FINDINGS: There is a homogeneous pattern of aerosol delivery to the periphery of both lungs. There is some mil d central deposition of aerosol in the left hilar region. No focal ventilatory defects are seen. The perfusion lung scan demonstrates a homogenous pattern of uptake in both lungs. No segmental or s ubsegmental defects are seen. CONCLUSION: Low probability pulmonary embolus. Wilian Lopez MD on August 22, 2016 at 12:20 Board Certified Radiologist. This report was verified electronically.
--- NOTE | 2016-08-22 13:35 | RADRPT ---
EXAM DATE/TIME: 08/22/2016 12:09 [facility] COMPARISON: No previous studies available for comparison. INDICATIONS : Chest pain radiating to back. MEDICAL HISTORY : Congestive heart failure. Myocardial infarction. Hypertension. Hypercholesterolemia. Chest pain. GERD . Kidney stones. Diabetes. Inguinal hernia. SURGICAL HISTORY : Cardiac stents. Cardiac catheterization. Parts of colon and large intestine removed. Right toe amputa tion. Right fem pop. LFA fistula. ENCOUNTER: Initial ACUITY: 1 day PAIN SCORE: 4/10 LOCATION: Bilateral chest MEASUREMENTS: (AP x TRANSVERSE) PROXIMAL: 2.4 x 2.5 cm MID: 2.3 x 2.3 cm DISTAL: 1.3 x1.6 cm RIGHT ILIAC: 1.2 x 1.2 cm LEFT ILIAC: 1.3 x 1.3 cm FINDINGS: AORTA: Atherosclerotic plaque is noted throughout the abdominal aorta. No sonographic evidence of abdominal aortic aneurysm. Doppler evaluation within normal limits. IVC: Within normal limits. CONCLUSION: No sonographic evidence of abdominal aortic aneurysm. Samuel Ward MD on August 22, 2016 at 13:32 Board Certified Radiologist. This report was verified electronically.
[2016-08-22] MEDS: INSULIN ASPART SUPPLEMENTAL SCALE SQ SCH ×2 (16:00→22:10)
[2016-08-22] MEDS: METOPROLOL TARTRATE 50 MG TAB PO SCH ×2 (17:37→22:07)
[2016-08-22] MEDS: PRAVASTATIN SOD 40 MG TAB PO SCH (17:37)
[2016-08-22] MEDS: BUMETANIDE 1 MG TAB PO SCH (17:37)
[2016-08-22] MEDS: ENALAPRIL MALEATE 10 MG TAB PO SCH (17:37)
[2016-08-22] MEDS: PANTOPRAZOLE SOD 40 MG DELAYED RELEASE TAB PO SCH ×2 (17:37→22:07)
[2016-08-22] MEDS: busPIRone HCL 10 MG TAB PO SCH ×2 (17:51→22:07)
[2016-08-22] MEDS: VENLAFAXINE HCL XR 37.5 MG CAP PO SCH (18:00)
[2016-08-22] MEDS ORDERED: HEPARIN-D5W INJ 250 ML IV SCH (19:00)
[2016-08-22 20:23] LABS: APTT (PATIENT) 28.5 SEC (24.3-30.1); PROTHROMBIN TIME - PATIENT 11.3 SEC (9.8-11.6)
[2016-08-22 20:36] LABS: HEMATOCRIT 25.6 % (39.0-51.0); MEAN CORPUSCULAR HEMOGLOBIN 29.8 PG (27.0-34.0); MEAN CORPUSCULAR HGB CONC 33.9 % (32.0-36.0); PLATELET COUNT 158 TH/MM3 (150-450); RED CELL DISTRIBUTION WIDTH 15.2 % (11.6-17.2); REVIEW FLAG FINAL; WHITE BLOOD COUNT 10.8 TH/MM3 (4.0-11.0)
[2016-08-22] MEDS ORDERED: SODIUM CHLORIDE 0.9% FLUSH 10 ML FLUSH IV FLUSH SCH (21:00)
[2016-08-22] MEDS: SODIUM CHLORIDE 0.9% FLUSH 10 ML FLUSH IV FLUSH SCH (22:08)
--- NOTE | 2016-08-22 23:07 | EKG ---
Date Performed: 08/22/2016 Time Performed: 18:09:58 PTAGE: 56 years EKG: Sinus rhythm . Extensive ST-T changes are nonspecific, possibly due to ischemia Borderline ECG PREVIOUS TRACING : 08/22/2016 06.06 Compared to prior tracing no significant change DOCTOR: Jhonathan Blair Interpretating Date/Time 08/22/2016 23:05:55
[2016-08-23] VITALS (9 sets, daily range): BP systolic 108–121; BP diastolic 55–67; PULSE 78–102; RESP 18–20; TEMP 97.7–99.6; O2SAT 93–99
[2016-08-23] MEDS: MORPHINE SULFATE 4 MG/ML INJ IV PRN ×7 (01:07→22:08)
[2016-08-23 03:25] LABS: AUTOMATED NEUTROPHIL # 10.3 TH/MM3 (1.8-7.7); BASOPHIL % 0.1 % (0.0-2.0); HEMATOCRIT 23.1 % (39.0-51.0); HEMO FLAGS DIFF FINAL; LYMPH % 4.2 % (9.0-44.0); LYMPHOCYTE # 0.5 TH/MM3 (1.0-4.8); MEAN CORPUSCULAR HEMOGLOBIN 29.1 PG (27.0-34.0); MONO % 4.4 % (0.0-8.0); NEUT % 91.3 % (16.0-70.0); PLATELET COUNT 143 TH/MM3 (150-450); RED BLOOD COUNT 2.63 MIL/MM3 (4.50-5.90); RED CELL DISTRIBUTION WIDTH 14.9 % (11.6-17.2); WHITE BLOOD COUNT 11.2 TH/MM3 (4.0-11.0)
[2016-08-23 03:38] LABS: APTT (PATIENT) 28.1 SEC (24.3-30.1)
[2016-08-23 03:49] LABS: ANION GAP 11 MEQ/L (5-15); BICARBONATE 27.9 MEQ/L (21.0-32.0); BLOOD UREA NITROGEN 37 MG/DL (7-18); CHLORIDE 101 MEQ/L (98-107); GLOMERULAR FILTRATION RATE 12 ML/MIN (>89); POTASSIUM 5.2 MEQ/L (3.5-5.1); SODIUM (NA) 140 MEQ/L (136-145)
[2016-08-23 03:53] LABS: FERRITIN 836 NG/ML (26-388); HDL CHOLESTEROL 50.3 MG/DL (40.0-60.0); LDL CHOLESTEROL 164 MG/DL (0-99); TRANSFERRIN IRON PROFILE 194 MG/DL (200-360)
[2016-08-23] MEDS: INSULIN ASPART SUPPLEMENTAL SCALE SQ SCH ×4 (06:58→22:04)
[2016-08-23] MEDS ORDERED: AZITHROMYCIN INJ 500 MG in SODIUM CHLOR 0.9% 250 ML INJ 250 ML IV SCH (08:00)
[2016-08-23] MEDS: PRAVASTATIN SOD 40 MG TAB PO SCH (08:27)
[2016-08-23] MEDS: BUMETANIDE 1 MG TAB PO SCH (08:27)
[2016-08-23] MEDS: busPIRone HCL 10 MG TAB PO SCH ×2 (08:27→22:03)
[2016-08-23] MEDS: METOPROLOL TARTRATE 50 MG TAB PO SCH ×2 (08:28→22:03)
[2016-08-23] MEDS: VENLAFAXINE HCL XR 37.5 MG CAP PO SCH (08:28)
[2016-08-23] MEDS: PANTOPRAZOLE SOD 40 MG DELAYED RELEASE TAB PO SCH ×2 (08:28→22:03)
[2016-08-23] MEDS: SODIUM CHLORIDE 0.9% FLUSH 10 ML FLUSH IV FLUSH SCH ×2 (08:29→22:03)
[2016-08-23] MEDS: ENALAPRIL MALEATE 10 MG TAB PO SCH (08:30)
[2016-08-23] MEDS: ONDANSETRON HCL 4 MG/2 ML VIAL IVP PRN (08:39)
[2016-08-23] MEDS: RESP: ALBUTEROL 2.5 MG/IPRATROPIUM 0.5 MG NEB (SCH) NEB ×4 (08:50→19:39)
[2016-08-23] MEDS ORDERED: ASPIRIN 81 MG CHEW TAB CHEW SCH (09:00)
[2016-08-23] MEDS ORDERED: CEFEPIME INJ 1,000 MG in SODIUM CHLORIDE 0.9% INJ 100 ML IV SCH (09:00)
[2016-08-23] MEDS ORDERED: predniSONE 20 MG TAB PO SCH (09:00)
--- NOTE | 2016-08-23 10:43 | MB ---
cc: JACKIE MALDONADO DATE OF CONSULTATION 08/23/2016 DATE OF 1960 to his REASON FOR CONSULTATION Chest pain HISTORY OF PRESENT ILLNESS 56-year-old male with past medical history significant for chronic kidney disease on hemodialysis Sunday, and Saturdays, CAD status post PCI 12 years ago, diabetes type 2, hypertension, neuropathy, PAD, smoker, noncompliant and recent discharge from the hospital in the setting of gastroparesis, GI bleeding and questionable infection. He presented yesterday to the emergency department complaining of a sudden onset of dyspnea and chest pain. He describes the pain as sharp that radiated to his shoulder and that was relieved by itself and was associated with chills and cough. He also reports that in the previous days, he has been having a lot of coughing, sweating and a low grade temperature. In the emergency department, he was found to have an infiltrating on chest x-ray, severe anemia, as well as mildly elevated troponin and BNP. Thus cardiology has been consulted for further management and evaluation. He has, in the system, echocardiogram from here that shows no wall motion abnormalities with a normal ejection fraction estimated to be at 60% and no significant valvulopathies. Currently he reports he has no chest pain. He does report a painful neuropathy that is more severe than the chest pain that he experienced last night. He care is done at the [facility] and he does not follow with any apprentice/lineman in town. REVIEW OF SYSTEMS Negative except for what is mentioned in the HPI. PAST MEDICAL HISTORY 1. PAD status post stent 12 years ago 2. Colostomy for a perforated colon 3. Diabetes type 2 4. Hypertension 5. Neuropathy 6. End-stage renal disease on dialysis Sunday, and Saturdays. 7. PAD Home medications: 1. Bumex 2 mg p.o. daily 2. Enalapril 3. Norvasc 10 mg p.o. daily 4. Buspirone 10 mg p.o. b.i.d. 5. Metoprolol 50 mg p.o. b.i.d. ALLERGIES NO KNOWN DRUG ALLERGIES. FAMILY HISTORY Mother leukemia. Brother brain aneurysm. Father in a car accident. SOCIAL HISTORY He is an active smoker. He denies illicit drug use or alcohol use. PHYSICAL EXAMINATION VITAL SIGNS: Temperature 98.5, pulse 82, respiratory rate 20, blood pressure 116/64, O2 sat 96%. GENERAL: Awake, alert and oriented times three in no acute distress. NECK: No JVD or carotid bruits. HEART: Regular rate and rhythm. No murmurs, rubs or gallops. LUNGS: Bilateral inspiratory rales. No wheezes or rhonchi. ABDOMEN: Soft, nontender, nondistended. Positive bowel sounds. EXTREMITIES: Pulses throughout. No edema. LABORATORY DATA White blood cells 11, trending down from 19, hemoglobin is 7.6 and 23 trending down from 10 and 33, platelet count 143, INR 1. Chemistries sodium 140, potassium 5.2, BUN 37, creatinine 5.08, troponin 1.98 and 0.77 trending down. BNP 1798. Chest x-ray bilateral lower lobe consolidations. VQ scan low probability for pulmonary emboli. EKG sinus tachycardia with nonspecific ST changes. ASSESSMENT/PLAN 56-year-old male with known coronary artery disease status post stent in the past, as well as chronic kidney disease on hemodialysis, GI bleeding, noncompliant who presents with complaints of atypical chest pain found to be having pneumonia, questionable sepsis and severe anemia. He remains afebrile, hemodynamically stable and chest pain-free. He has been started on a heparin drip and his troponin's have been trending down from 1.98-0.77. I agree that given his cardiac history and his complaint of chest pain is concerning for ACS , however, he also has severe anemia which has worsen since admission and an active infection thus a invasive cardiac evaluation is off the table at this time. Recommendations: 1. Aggressive medical management for CAD. He should be on ASA, statins, beta- blockers and ACEi. 2. Start Imdur 30mg PO daily 2. Smoking cessation is strongly advised 3. Repeat the 2D-echocardiogram 4. Anemia work up per primary team Thank you for the opportunity to take part in the care of this patient. Further therapy to be determine Jackie Maldonado MD, [facility] [employer]EL[employer]/[facility]RIELL /9:49 AM /10:12 AM JUNIOR
--- NOTE | 2016-08-23 11:09 | HHI.HP ---
[facility] Service Family Medicine Primary Care Physician [facility] Admission Diagnosis pneumonia/sepsis/fluid overload/hypoxia Diagnoses: (1) Dyspnea Diagnosis: Principal (2) Chest pain Diagnosis: Principal (3) PNA (pneumonia) Diagnosis: Principal (4) CHF (congestive heart failure) Diagnosis: Principal (5) Sacral decubitus ulcer Diagnosis: Principal (6) ESRD on hemodialysis (7) CAD (coronary artery disease) Diagnosis: Principal (8) Anemia Diagnosis: Principal (9) Diabetes type 2, uncontrolled Diagnosis: Principal (10) Peripheral neuropathy Diagnosis: Principal (11) DVT prophylaxis Diagnosis: Principal (12) Nutrition, metabolism, and development symptoms Diagnosis: Principal International Travel<30 Days: No Contact w/Intl Traveler<30days: No Known Affected Area: No History of Present Illness Mr Cintron is a 56 year old male with PMH of ESRD on dialysis, CHF, PR with stent, diabetes type II, peripheral arterial disease, peripheral neuropathy, colostomy bag. He had rather sudden onset of dyspnea and chest pain that started at midnight. The pain bore through to his upper back and radiated to his shoulder and arm. He normally is able to walk 2 to 3 blocks, but last night could not walk very far at all. The pain was 8/10, but now is much better. He vomited once when he got to the ED and has felt sweaty, chills, and lightheaded. He has non-productive coughing. He reports no new swelling in his extremities. He has runny nose, no sore throat. No abdominal pain or diarrhea. No calf tenderness or swelling. He was struggling to breathe when he came to the ED and improved especially when he had dialysis. He had at least 3 liters of fluid off and was comfortable and all his chest and back pain went away. Currently he is breathing well on 2 liter nasal canula and able to ambulate in the phan with PT. Per pts reports he had left dialysis an hour earlier than he should have on Sunday and there may have been too much fluid causing most of his breathing problems. He has no chest or back pain today but does complain of his chronic arm and leg pain. [facility] but now evidently there is a [facility] by the [facility] to stop all narcotic prescribing so Mr Cintron reports daily pain but not worse today compared to other days. He reports that he cannot take lyrica or gabapentin with his dialysis. He also was hospitalized recently with bacteremia and received about a month of iv gent and vanc I believe after dialysis. He has been seen in the past by Dr Sampson. He was given gentamicin yesterday after dialysis but is also getting abx for pneumonia. Fortunately, our pt does not appear septic but a plan on treatment can be devised. Review of Systems Other Constitutional: COMPLAINS OF: Diaphoretic episodes, Weight gain, Chills, DENIES: Weight loss, Dizziness, Change in appetite, Night Sweats Endocrine: DENIES: Heat/cold intolerance, Polydipsia, Polyuria, Polyphagia Eyes: DENIES: Diplopia, Eye pain, Vision loss, Double Vision Ears, nose, mouth, throat: COMPLAINS OF: Running Nose, DENIES: Hearing loss, Nasal discharge, Oral lesions, Throat pain, Hoarseness, Toothache, Odynophagia Respiratory: COMPLAINS OF: Cough, Shortness of breath, DENIES: Wheezing, Hemoptysis, Sputum production Cardiovascular: COMPLAINS OF: Chest pain, Palpitations (felt fast), Dyspnea on Exertion, Orthopnea, Claudication, DENIES: Syncope, Lower Extremity Edema Gastrointestinal: COMPLAINS OF: Nausea, Vomiting, DENIES: Abdominal pain, Black stools, Bloody stools, Diarrhea Genitourinary: DENIES: Urinary frequency, Dysuria, Nocturia Musculoskeletal: DENIES: Neck pain Integumentary: DENIES: Rash Hematologic/lymphatic: DENIES: Lymphadenopathy Immunologic/allergic: DENIES: Eczema Neurologic: DENIES: Headache, Seizures, Tremor, Poor Balance Psychiatric: DENIES: Anxiety, Depression, Suicidal Ideation Past Family Social History Past Medical History PR with stent 12 years ago Colostomy bag for perforated colon Diabetes Type II HTN Neuropathy in hands and feet ESRD on dialysis, Tues, Thurs, Sat PAD CHF Dr. 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 Past Surgical History Amputation of big toe on right Colostomy bag Vascular bypass in right leg Coronary artery stent Allergies: Coded Allergies: No Known Allergies (Unverified , 08/22/16) Family History Mother: leukemia Brother: brain aneurysm Father: in car accident Social History Smoke: half pack per day, used to smoke pack per day, since age 16 Alcohol: None Drug use: None Retired from [employer] Walks with cane Lives alone, not Neighbor helps out Physical Exam Vital Signs Vital Signs Date Time Temp Pulse Resp B/P Pulse Ox O2 Delivery O2 Flow Rate FiO2 08/23/16 08:52 95 Nasal Cannula 2.00 08/23/16 08:00 98.5 82 20 116/64 96 08/23/16 04:00 98.5 92 18 108/55 95 08/23/16 00:00 99.6 102 18 121/61 96 08/22/16 20:00 98.4 91 18 116/57 96 08/22/16 19:56 96 Nasal Cannula 2.00 08/22/16 17:20 99 Venturi Mask 50 08/22/16 17:00 98.6 93 20 122/65 100 Physical Exam GENERAL: Sitting up in bed, 2 liter nasal canula, no respiratory distress SKIN: Sacral area with erythema, no skin breakdown HEAD: Atraumatic. Normocephalic. EYES: Pupils equal round and reactive. Extraocular motions intact. No scleral icterus. No injection or drainage. ENT: Nose without bleeding, purulent drainage or septal hematoma. . Airway patent. NECK: Trachea midline. No JVD or lymphadenopathy. Supple, nontender, no meningeal signs. CARDIOVASCULAR: Tachycardia, regular rhythm without murmurs, gallops, or rubs. RESPIRATORY: Crackles in lung bases virtually gone today but present initially. No respiratory distress. 98% O2 saturation currently. GASTROINTESTINAL: Abdomen soft, non-tender, nondistended. No hepato-splenomegaly , or palpable masses. No guarding. Colostomy bag in place with soft brown stool. MUSCULOSKELETAL: Extremities without clubbing, cyanosis, or edema. No joint tenderness, effusion, or edema noted. No calf tenderness. Negative Homans sign bilaterally. Missing right great toe from prior toe amputation. NEUROLOGICAL: Awake and alert. Cranial nerves II through XII intact. Motor and sensory grossly within normal limits. Normal speech. Laboratory Laboratory Tests Test 08/22/16 08/22/16 08/22/16 08/23/16 16:59 20:00 23:09 03:09 Total Creatine Kinase 99 75 Troponin I 1.98 0.77 White Blood Count 10.8 11.2 Red Blood Count 2.90 2.63 Hemoglobin 8.7 7.6 Hematocrit 25.6 23.1 Mean Corpuscular Volume 88.0 88.0 Mean Corpuscular Hemoglobin 29.8 29.1 Mean Corpuscular Hemoglobin 33.9 33.0 Concent Red Cell Distribution Width 15.2 14.9 Platelet Count 158 143 Mean Platelet Volume 10.5 9.9 Prothrombin Time 11.3 Prothromb Time International 1.0 Ratio Activated Partial 28.5 28.1 Thromboplast Time Neutrophils (%) (Auto) 91.3 Lymphocytes (%) (Auto) 4.2 Monocytes (%) (Auto) 4.4 Eosinophils (%) (Auto) 0.0 Basophils (%) (Auto) 0.1 Neutrophils # (Auto) 10.3 Lymphocytes # (Auto) 0.5 Monocytes # (Auto) 0.5 Eosinophils # (Auto) 0.0 Basophils # (Auto) 0.0 CBC Comment DIFF FINAL Differential Comment Sodium Level 140 Potassium Level 5.2 Chloride Level 101 Carbon Dioxide Level 27.9 Anion Gap 11 Blood Urea Nitrogen 37 Creatinine 5.08 Estimat Glomerular Filtration 12 Rate Random Glucose 164 Calcium Level 8.2 Iron Level 42 Total Iron Binding Capacity 272 Percent Iron Saturation 15.5 Ferritin 836 B-Type Natriuretic Peptide 1798 Triglycerides Level 122 Cholesterol Level 239 LDL Cholesterol 164 HDL Cholesterol 50.3 Cholesterol/HDL Ratio 4.75 Date/Time Procedure Status Source Growth 08/23/16 00:30 Stool Occult Blood (SOILA) - Final Complete Stool Stool HEMOCCULT NEGATIVE 08/22/16 06:15 Aerobic Blood Culture Received Blood Peripheral Pending 08/22/16 06:15 Anaerobic Blood Culture Received Blood Peripheral Pending Result Diagram: 08/23/16 0309 08/23/16 0309 Imaging Last 72 hours Impressions Chest X-Ray 08/22/16 0620 Signed Impressions: Service Date/Time: Monday, August 22, 2016 06:19 - CONCLUSION: Bilateral lower lobe consolidations left greater than right entirely new since July. Dual- lumen catheter in good position. No pneumothorax. Syd Salmeron MD Assessment and Plan Assessment and Plan 56 year old male presents with rather acute onset of dyspnea and chest pain. Problem List: (1) Dyspnea Status: Acute Plan: Dyspnea with chest pain started at midnight, rather acute onset. Chest x- ray showing Bilateral infiltrates in the bases, crackles in bases on physical exam. No significant peripheral edema. BNP is 2838. Currently with good oxygen saturation Differential diagnosis: PE, PR, pneumonia, CHF exacerbation, COPD, aortic dissection. - Oxygen supplementation as needed. - Duonebs every 4 hours while awake. - Prednisone 40 mg daily - Cefepime, Azithromycin to cover hospital acquired organisms - V/Q scan did not show PE - Ultrasound aorta to rule out aortic dissection, showed lower aorta but his pain was gone. did not want to do CTA with his terrible kidney disease - Counseling on smoking cessation (2) Chest pain Status: Acute Plan: Rather sudden onset of chest pain at about midnight, with radiation to the left shoulder and into the upper back. Wells score for PE is 6. Had tachycardia. - Trended Troponin levels and EKG's. His troponins went up but his pain went away so no need for cardiac intervention at this time. He may have had rise in his troponins because of the strain on his heart with his CHF and fluid overload - Morphine, Dilaudid for pain management. He wants [facility] He knows he will need to find another outpt Dr to prescribe these - Oxygen supplementation as needed. - V/Q scan and aortic ultrasound normal (3) PNA (pneumonia) Status: Acute Plan: Possibly hospital/healthcare associated pneumonia with history of dialysis and hospital admission recently (August 01). WBC 19.7, tachycardic. No fevers. Lactic acid normal. - Continue Cefepime and Azithromycin - Monitor fluid status. -unsure if he could have some problem from his prior bacteremia. can contact Nephrology who has been following him. He does have a vas cath that he never had replaced with a shunt so there is always some infection risk - blood cultures are pending (4) CHF (congestive heart failure) Status: Acute Plan: ECHO in November 2015 showed 60% EF. Does not report significant dyspnea or edema at baseline. Does have some orthopnea. Lungs appear fluid overloaded on chest x-ray. BNP significantly elevated. - Sodium and fluid restriction as required by Nephrology - Continue Bumex from home 2 mg daily. - Lasix PRN - Monitor I's and O's. - Continue beta mary, jerica inhibitor - Repeat ECHO to assess heart function - May benefit from spironolactone depending on ECHO - his fluid overload is worsened by his leaving dialysis early, he also reports drinking more fluid recently. even with a normal EF, he can be fluid overloaded with his renal failure (5) Sacral decubitus ulcer Status: Acute Plan: Erythematous sacrum - Frequent turns, monitor for skin breakdown. - Keep area dry. he can walk so he needs to be on his feet more as well (6) ESRD on hemodialysis Status: Chronic Plan: ESRD on dialysis Bin, [place], Sat. 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 he was fluid overloaded and improved greatly with dialysis on admission - Consulted nephrology. - Hemodialysis per nephrology recommendations. - Renally dose medications. - Avoid nephrotoxic agents. (7) CAD (coronary artery disease) Status: Chronic Plan: History of CAD with stent 12 years ago. - Continue aspirin 81 mg daily. - Pravastatin 40 mg daily. (8) Anemia Status: Chronic Plan: Chronic anemia, likely of CKD. - EPO at discretion of nephrology, pt states he recieved this after dialysis yesterday. His H/H seems to vary widely but fortunately he is not bleeding now - Checked iron studies, heme negative (9) Diabetes type 2, uncontrolled Status: Chronic Plan: Diabetes type 2, not on diabetic medication per patient. Has right great toe amputation from PAD and peripheral neuropathy. - SS insulin, low dose - Accuchecks many diabetics on dialysis need less insulin (10) Peripheral neuropathy Status: Chronic Plan: Has significant pain from peripheral neuropathy. - Morphine and Dilaudid for pain management. - Monitor for sedation. unsure if another med would help him lidocaine patches, capsaicin, other treatment per pain management as an outpt would be beneficial (11) DVT prophylaxis Status: Acute Plan: Heparin 5000 mg tid Bilateral SCD's (12) Nutrition, metabolism, and development symptoms Status: Acute Plan: - Fluid and sodium restriction - Renal diet - Monitor electrolytes Physician Certification 2 Midnight Certification Type: Admission for Inpatient Services Order for Inpatient Services The services are ordered in accordance with Medicare regulations or non- Medicare payer requirements, as applicable. In the case of services not specified as inpatient-only, they are appropriately provided as inpatient services in accordance with the 2-midnight benchmark. Estimated LOS (days): 3 3 days is the estimated time the patient will need to remain in the hospital, assuming treatment plan goals are met and no additional complications. Post-Hospital Plan: Home Problem Qualifiers (1) Dyspnea: Qualified Code: R06.02 - Shortness of breath (2) Chest pain: Qualified Code: R07.2 - Precordial pain (3) PNA (pneumonia): Qualified Code: J18.9 - Pneumonia due to infectious organism, unspecified laterality, unspecified part of lung (4) CHF (congestive heart failure): Qualified Code: I50.9 - Acute congestive heart failure, unspecified congestive heart failure type (5) Sacral decubitus ulcer: Qualified Code: L89.151 - Decubitus ulcer of sacral region, stage 1 (6) CAD (coronary artery disease): Qualified Code: I25.119 - Coronary artery disease involving tribal heart with angina pectoris, unspecified vessel or lesion type (7) Anemia: Qualified Code: N18.9 - Anemia in chronic kidney disease (8) Diabetes type 2, uncontrolled: Qualified Code: E11.22 - Uncontrolled type 2 diabetes mellitus with chronic kidney disease on chronic dialysis, unspecified residential insulin use status (9) Peripheral neuropathy: Qualified Code: G59 - Mononeuropathy due to underlying disease Alaina Curtis MD Aug 23, 2016 11:09
[2016-08-23 11:36] LABS: APTT (PATIENT) 26.2 SEC (24.3-30.1)
[2016-08-23 12:51] LABS: HEMATOCRIT 26.6 % (39.0-51.0); REVIEW FLAG FINAL
--- NOTE | 2016-08-23 16:58 | HHI.NPPN ---
Subjective History of Present Illness The patient is a 56 yo [place] male who is known to our services for ESRD on HD. Came to the ED for evaluation this AM as he was SOB, having CP and very weak. Missed regularly scheduled HD this AM. CXR reveals bibasilar PNA. Just finished outpatient Vancomycin on Sunday for recent admission for bacteremia. Interval History Patient sitting up in bed. No verbal complaints. Noted to have oxygen on however. Review of Systems General Constitutional: Fatigue Objective Data Data 08/22/16 08/23/16 19:00 07:00 Intake Total 480 ml Output Total 3000 ml Balance -3000 ml 480 ml Intake Oral 480 ml Hemodialysis 3000 ml # Voids 2 # Bowel Movements 1 1 Vital Signs Date Time Temp Pulse Resp B/P Pulse Ox O2 Delivery O2 Flow Rate FiO2 08/23/16 15:42 97 Nasal Cannula 2.00 08/23/16 12:00 97.7 91 18 117/67 97 08/23/16 08:52 95 Nasal Cannula 2.00 08/23/16 08:00 78 08/23/16 08:00 98.5 82 20 116/64 96 08/23/16 04:00 98.5 92 18 108/55 95 08/23/16 00:00 99.6 102 18 121/61 96 08/22/16 20:00 98.4 91 18 116/57 96 08/22/16 19:56 96 Nasal Cannula 2.00 08/22/16 17:20 99 Venturi Mask 50 08/22/16 17:00 98.6 93 20 122/65 100 -: 08/23/16 1225 08/23/16 0309 Microbiology 08/23/16 Stool Occult Blood (SOILA) - Final, Complete HEMOCCULT NEGATIVE Physical Exam General Appearance: No Acute Distress, Comfortable Eyes Eye Exam: Sclera White Pulmonary Resp Exam: Clear Bilaterally, Breath Sounds Equal, No Distress Cardiology CV Exam: Regular, Normal Sinus Rhythm Gastrointestinal/Abdomen GI Exam: Soft, Non-Tender Integumentary Skin Exam: Clear, Warm, Dry, Normal Turgor Extremeties Extremities Exam: No Edema Neurologic Neuro Exam: Alert, Awake, Speech Clear, Moving All Extremities Psychiatric Psych Exam: Appropriate Responses Assessment/Plan Discussed Condition With: Patient Problem List: (1) ESRD on hemodialysis Plan: HD today as per regular TTS schedule. Repeat blood cultures negative 24 hours. If negative time 48 clear for discharge from renal point of view but will follow blood cultures as an outpatient. If blood cultures remain negative no need to replace Vas-Cath. Patient needs AV dialysis shunt however compliance issues have been a problem in getting the patient to vascular surgeon. Patient has a history of recurrent episodes of leaving the hospital AGAINST MEDICAL ADVICE. Volume status improved postdialysis. Discussed with primary care. Medications should be adjusted for the patient's ESRD. Avoid gadolinium (2) PNA (pneumonia) Plan: Abx as per primary (3) HTN (hypertension) Plan: Continue on current home regimen. (4) Diabetes type 2, uncontrolled Plan: Mgmt as per primary (5) Anemia Plan: Stable. Continue to monitor. 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
--- NOTE | 2016-08-23 21:01 | EC ---
Study Study Date:08/23/2016 STUDY CONCLUSIONS SUMMARY - Left ventricle: The cavity size was mildly dilated. Wall thickness was normal. Systolic function was at the lower limits of normal. The estimated ejection fraction was 50%. Wall motion was normal; there were no regional wall motion abnormalities. - Mitral valve: Mild to moderate regurgitation. - Tricuspid valve: Mild regurgitation. - Pulmonary arteries: Systolic pressure was mildly to moderately increased. PA peak pressure: 55mm Hg (S). If LV function is below 40, please consider prescribing an ACEI or ARB or document rationale for non-use. PROCEDURE DATA STUDY STATUS: Elective. Procedure: Transthoracic echocardiography. Image quality was good. Scanning was performed from the parasternal, apical, and subcostal acoustic windows. Study completion: The patient tolerated the procedure well. Transthoracic echocardiography. M-mode, complete 2D, complete spectral Doppler, and color Doppler. Height: Height: 69in. Weight: Weight: 148.7lb. Body mass index: BMI: 22kg/m^2. Body surface area: BSA: 1.82m^2. Patient status: Inpatient. CARDIAC ANATOMY LEFT VENTRICLE: The cavity size was mildly dilated. Wall thickness was normal. Systolic function was at the lower limits of normal. The estimated ejection fraction was 50%. Wall motion was normal; there were no regional wall motion abnormalities. AORTIC VALVE: Trileaflet; normal thickness leaflets. Doppler: Transvalvular velocity was within the normal range. There was no stenosis. No regurgitation. Valve area: 2cm^2(VTI). Indexed valve area: 1.1cm^2/m^2 (VTI). Valve area: 1.91cm^2 (Vmax). Indexed valve area: 1.05cm^2/m^2 (Vmax). Mean gradient: 4mm Hg (S). AORTA: Aortic root: The aortic root was normal in size. MITRAL VALVE: Structurally normal valve. Doppler: Transvalvular velocity was within the normal range. There was no evidence for stenosis. Mild to moderate regurgitation. Peak gradient: 7mm Hg (D). LEFT ATRIUM: The atrium was normal in size. RIGHT VENTRICLE: The cavity size was normal. Wall thickness was normal. PULMONIC VALVE: Doppler: Transvalvular velocity was within the normal range. There was no evidence for stenosis. No regurgitation. TRICUSPID VALVE: Structurally normal valve. Doppler: Transvalvular velocity was within the normal range. Mild regurgitation. PULMONARY ARTERY: The main pulmonary artery was normal-sized. Systolic pressure was mildly to moderately increased. RIGHT ATRIUM: The atrium was normal in size. PERICARDIUM: There was no pericardial effusion. SYSTEMIC VEINS: Inferior vena cava: The vessel was normal in size. Patient weight: 148.7lb _Ejection fraction:_ 65-75% _Fractional shortening:_ 32% up to 5Kg 5-11.5Kg 11.6-22.9Kg 23-45Kg 45-57Kg Aortic Root 7-13 <17 13-22 17-27 17-27 LA diam 6-13 <23 24-38 33-47 37-40 RVID 10-17 7-15 7-15 7-18 8-17 LVIDd 12-22 <32 24-38 33-47 37-40 LVPW 2-4 3-6 5-7 6-8 7-8 IVS 2-4 3-6 5-7 6-8 7-8 BASIC MEASUREMENTS ADULT NORMAL Left ventricle LV internal dimension, ED, chordal *62.2 mm 43-52 level, PLAX LV internal dimension, ES, chordal *49.1 mm 23-38 level, PLAX Fractional shortening, chordal level, *21 % >29 PLAX LV posterior wall thickness, ED 8.52 mm IVS/LVPW ratio, ED 1 <1.3 Ventricular septum Septal thickness, ED 8.49 mm Aortic valve Leaflet separation 20 mm 15-26 Aorta Root diameter, ED 30 mm Left atrium Anterior-posterior dimension 39 mm Anterior-posterior dimension index 2.14 cm/m^2 <2.2 BASIC MEASUREMENTS ADULT NORMAL Aortic valve Leaflet separation 20 mm 15-26 DOPPLER MEASUREMENTS ADULT NORMAL Main pulmonary artery Pressure, S *55 mm Hg =30 Aortic valve Peak velocity, S 143 cm/s Mean velocity, S 87 cm/s VTI, S 25.6 cm Mean gradient, S 4 mm Hg Valve area, VTI 2 cm^2 Valve area index, VTI 1.1 cm^2/m^2 Valve area, Vmax 1.91 cm^2 Valve area index, Vmax 1.05 cm^2/m^2 Mitral valve Peak E-wave velocity 129 cm/s Peak A-wave velocity 67.6 cm/s Deceleration time *127 ms 150-230 Peak gradient, D 7 mm Hg Peak E/A ratio 1.9 Tricuspid valve Regurgitant peak velocity 303 cm/s Peak RV-RA gradient, S 37 mm Hg Maximal regurgitant velocity 303 cm/s Right ventricle RV pressure, S *57 mm Hg <30 Pulmonic valve Peak velocity, S 70.7 cm/s LEGEND: Mean values are shown as u=mean value. Asterisk (*) sandoval values outside specified normal range. Prepared and signed by Zaida Johnson [id number]
[2016-08-24] VITALS: BP 131/66; PULSE 84; RESP 20; TEMP 98.1; O2SAT 98
[2016-08-24] MEDS: MORPHINE SULFATE 4 MG/ML INJ IV PRN ×2 (01:17→04:29)
[2016-08-24 04:00] VITALS: BP 137/81; PULSE 92; RESP 20; TEMP 98; O2SAT 96
[2016-08-24] MEDS: ONDANSETRON HCL 4 MG/2 ML VIAL IVP PRN (05:20)
[2016-08-24] MEDS: INSULIN ASPART SUPPLEMENTAL SCALE SQ SCH (06:39)
[2016-08-24 08:02] LABS: HEMATOCRIT 25.8 % (39.0-51.0); MEAN CELL VOLUME 89.2 FL (80.0-100.0); MEAN CORPUSCULAR HEMOGLOBIN 29.3 PG (27.0-34.0); MEAN CORPUSCULAR HGB CONC 32.9 % (32.0-36.0); PLATELET COUNT 139 TH/MM3 (150-450); RED BLOOD COUNT 2.89 MIL/MM3 (4.50-5.90); RED CELL DISTRIBUTION WIDTH 15.4 % (11.6-17.2); REVIEW FLAG FINAL; WHITE BLOOD COUNT 10.1 TH/MM3 (4.0-11.0)
[2016-08-24 08:18] LABS: BICARBONATE 28.8 MEQ/L (21.0-32.0)
--- NOTE | 2016-08-24 13:09 | HHI.PR ---
Addendum to Inpatient Note Addendum Reason: Additional Documentation Additional Information Mr Cintron chose to leave AMA this am. Per reports, he wanted his pain meds and then left when they did not arrive fast enough. The therapeutic relationship has been severed between him and his Dr. Curtis,Alaina Moyer MD Aug 24, 2016 13:09
--- NOTE | 2016-08-24 14:26 | PD.AMA ---
Against Medical Advice Note Diagnosis: (1) CHF (congestive heart failure) (2) CAD (coronary artery disease) (3) Chest pain (4) ESRD (end stage renal disease) on dialysis (5) CKD (chronic kidney disease) stage 4, GFR 15-29 ml/min (6) Dehydration Discharge Disposition: Against Medical Advice Pt Condition on Discharge: Stable AMA Statement Patient Missael Cintron has decided to leave the hospital against medical advice. This patient has the capacity to refuse care and understands the risks of leaving, including permanent disability and/or , and has had an opportunity to ask questions about his condition. The patient has been informed that he may return for care at any time, and follow up has been arranged/ advised. Per the nurse, the patient left because of a dispute over his pain medications. The patient did not feel his pain medication was given in a timely manner. Because of the circumstances of his leaving against medical advise, the family medicine team does not feel that the patient is an appropriate learning case for the residents. If he returns, he will need to go to the hospitalist service rather than the family medicine service. This was discussed with my attending, Dr. Curtis. Jorge Camarena MD R2 Aug 24, 2016 14:26
--- NOTE | 2016-08-24 15:50 | HHI.DS ---
Discharge Summary Admission Date Aug 22, 2016 at 08:17 Discharge Date: Aug 24, 2016 Admitting Diagnosis pneumonia/sepsis/fluid overload/hypoxia (1) Dyspnea Plan: Dyspnea with chest pain started at midnight, rather acute onset. Chest x- ray showing Bilateral infiltrates in the bases, crackles in bases on physical exam. No significant peripheral edema. BNP is 2838. Currently with good oxygen saturation Differential diagnosis: PE, NM, pneumonia, CHF exacerbation, COPD, aortic dissection. - Oxygen supplementation as needed. - Duonebs every 4 hours while awake. - Prednisone 40 mg daily - Cefepime, Azithromycin to cover hospital acquired organisms - V/Q scan did not show PE - Ultrasound aorta to rule out aortic dissection, showed lower aorta but his pain was gone. did not want to do CTA with his terrible kidney disease - Counseling on smoking cessation (2) Chest pain Diagnosis: Principal Plan: Rather sudden onset of chest pain at about midnight, with radiation to the left shoulder and into the upper back. Wells score for PE is 6. Had tachycardia. - Trended Troponin levels and EKG's. His troponins went up but his pain went away so no need for cardiac intervention at this time. He may have had rise in his troponins because of the strain on his heart with his CHF and fluid overload - Morphine, Dilaudid for pain management. He wants narcotics but has been cut off at the NH. He knows he will need to find another outpt Dr to prescribe these - Oxygen supplementation as needed. - V/Q scan and aortic ultrasound normal (3) PNA (pneumonia) Diagnosis: Principal Plan: Possibly hospital/healthcare associated pneumonia with history of dialysis and hospital admission recently (August 01). WBC 19.7, tachycardic. No fevers. Lactic acid normal. - Continue Cefepime and Azithromycin - Monitor fluid status. -unsure if he could have some problem from his prior bacteremia. can contact Nephrology who has been following him. He does have a vas cath that he never had replaced with a shunt so there is always some infection risk - blood cultures are pending (4) CHF (congestive heart failure) Diagnosis: Principal Plan: ECHO in November 2015 showed 60% EF. Does not report significant dyspnea or edema at baseline. Does have some orthopnea. Lungs appear fluid overloaded on chest x-ray. BNP significantly elevated. - Sodium and fluid restriction as required by Nephrology - Continue Bumex from home 2 mg daily. - Lasix PRN - Monitor I's and O's. - Continue beta mary, jerica inhibitor - Repeat ECHO to assess heart function - May benefit from spironolactone depending on ECHO - his fluid overload is worsened by his leaving dialysis early, he also reports drinking more fluid recently. even with a normal EF, he can be fluid overloaded with his renal failure (5) Sacral decubitus ulcer Diagnosis: Principal Plan: Erythematous sacrum - Frequent turns, monitor for skin breakdown. - Keep area dry. he can walk so he needs to be on his feet more as well (6) ESRD on hemodialysis Diagnosis: Principal Plan: ESRD on dialysis , , Sun. 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 he was fluid overloaded and improved greatly with dialysis on admission - Consulted nephrology. - Hemodialysis per nephrology recommendations. - Renally dose medications. - Avoid nephrotoxic agents. (7) CAD (coronary artery disease) Diagnosis: Principal Plan: History of CAD with stent 12 years ago. - Continue aspirin 81 mg daily. - Pravastatin 40 mg daily. (8) Anemia Diagnosis: Principal Plan: Chronic anemia, likely of CKD. - EPO at discretion of nephrology, pt states he recieved this after dialysis yesterday. His H/H seems to vary widely but fortunately he is not bleeding now - Checked iron studies, heme negative (9) Diabetes type 2, uncontrolled Diagnosis: Principal Plan: Diabetes type 2, not on diabetic medication per patient. Has right great toe amputation from PAD and peripheral neuropathy. - SS insulin, low dose - Accuchecks many diabetics on dialysis need less insulin (10) Peripheral neuropathy Diagnosis: Principal Plan: Has significant pain from peripheral neuropathy. - Morphine and Dilaudid for pain management. - Monitor for sedation. unsure if another med would help him lidocaine patches, capsaicin, other treatment per pain management as an outpt would be beneficial (11) DVT prophylaxis Diagnosis: Principal Plan: Heparin 5000 mg tid Bilateral SCD's (12) Nutrition, metabolism, and development symptoms Diagnosis: Principal Plan: - Fluid and sodium restriction - Renal diet - Monitor electrolytes [facility] Cardiology, nephrology Brief History Mr Cintron is a 56 year old male with PMH of ESRD on dialysis, CHF, NM with stent, diabetes type II, peripheral arterial disease, peripheral neuropathy, colostomy bag. He had rather sudden onset of dyspnea and chest pain that started at midnight. The pain bore through to his upper back and radiated to his shoulder and arm. He normally is able to walk 2 to 3 blocks, but last night could not walk very far at all. The pain was 8/10, but now is much better. He vomited once when he got to the ED and has felt sweaty, chills, and lightheaded. He has non-productive coughing. He reports no new swelling in his extremities. He has runny nose, no sore throat. No abdominal pain or diarrhea. No calf tenderness or swelling. He was struggling to breathe when he came to the ED and improved especially when he had dialysis. He had at least 3 liters of fluid off and was comfortable and all his chest and back pain went away. Currently he is breathing well on 2 liter nasal canula and able to ambulate in the phan with PT. Per pts reports he had left dialysis an hour earlier than he should have on Sunday and there may have been too much fluid causing most of his breathing problems. He has no chest or back pain today but does complain of his chronic arm and leg pain. Originally the NH had been giving him narcotics but now evidently there is a push by the NH to stop all narcotic prescribing so Mr Cintron reports daily pain but not worse today compared to other days. He reports that he cannot take lyrica or gabapentin with his dialysis. He also was hospitalized recently with bacteremia and received about a month of iv gent and vanc I believe after dialysis. He has been seen in the past by Dr Sampson. He was given gentamicin yesterday after dialysis but is also getting abx for pneumonia. Fortunately, our pt does not appear septic but a plan on treatment can be devised. CBC/BMP: 08/24/16 0730 08/24/16 0730 Significant Findings Laboratory Tests Test 08/22/16 08/22/16 08/22/16 08/22/16 06:20 16:59 20:00 23:09 White Blood Count 19.7 TH/MM3 (4.0-11.0) Red Blood Count 3.70 MIL/MM3 2.90 MIL/MM3 (4.50-5.90) (4.50-5.90) Hemoglobin 10.9 GM/DL 8.7 GM/DL (13.0-17.0) (13.0-17.0) Hematocrit 33.4 % 25.6 % (39.0-51.0) (39.0-51.0) Neutrophils (%) (Auto) 79.7 % (16.0-70.0) Neutrophils # (Auto) 15.7 TH/MM3 (1.8-7.7) Monocytes # (Auto) 1.3 TH/MM3 (0-0.9) Neutrophils % (Manual) 74 % (16-70) Neutrophils # (Manual) 16.2 TH/MM3 (1.8-7.7) Metamyelocytes 2 % (0-1) Myelocytes 1 % (0-0) Platelet Morphology Comment ENLARGED (NORMAL) Chloride Level 108 MEQ/L (98-107) Carbon Dioxide Level 20.0 MEQ/L (21.0-32.0) Blood Urea Nitrogen 37 MG/DL (7-18) Creatinine 6.07 MG/DL (0.60-1.30) Estimat Glomerular Filtration 10 ML/MIN (>89) Rate Random Glucose 173 MG/DL (74-106) Calcium Level 8.2 MG/DL (8.5-10.1) Aspartate Amino Transf 13 U/L (15-37) (AST/SGOT) B-Type Natriuretic Peptide 2838 PG/ML (0-100) Albumin 3.2 GM/DL (3.4-5.0) Troponin I 1.98 NG/ML 0.77 NG/ML (0.02-0.05) (0.02-0.05) Test 08/23/16 08/23/16 08/24/16 03:09 12:25 07:30 White Blood Count 11.2 TH/MM3 (4.0-11.0) Red Blood Count 2.63 MIL/MM3 2.89 MIL/MM3 (4.50-5.90) (4.50-5.90) Hemoglobin 7.6 GM/DL 8.8 GM/DL 8.5 GM/DL (13.0-17.0) (13.0-17.0) (13.0-17.0) Hematocrit 23.1 % 26.6 % 25.8 % (39.0-51.0) (39.0-51.0) (39.0-51.0) Platelet Count 143 TH/MM3 139 TH/MM3 (150-450) (150-450) Neutrophils (%) (Auto) 91.3 % (16.0-70.0) Lymphocytes (%) (Auto) 4.2 % (9.0-44.0) Neutrophils # (Auto) 10.3 TH/MM3 (1.8-7.7) Lymphocytes # (Auto) 0.5 TH/MM3 (1.0-4.8) Potassium Level 5.2 MEQ/L (3.5-5.1) Blood Urea Nitrogen 37 MG/DL (7-18) 55 MG/DL (7-18) Creatinine 5.08 MG/DL 6.62 MG/DL (0.60-1.30) (0.60-1.30) Estimat Glomerular Filtration 12 ML/MIN (>89) 9 ML/MIN (>89) Rate Random Glucose 164 MG/DL (74-106) Calcium Level 8.2 MG/DL 8.1 MG/DL (8.5-10.1) (8.5-10.1) Iron Level 42 MCG/DL (65-175) Percent Iron Saturation 15.5 % (20-50) Ferritin 836 NG/ML (26-388) B-Type Natriuretic Peptide 1798 PG/ML (0-100) Cholesterol Level 239 MG/DL (120-200) LDL Cholesterol 164 MG/DL (0-99) Chloride Level 93 MEQ/L (98-107) Imaging Last 72 hours Impressions Chest X-Ray 08/22/16 0620 Signed Impressions: Service Date/Time: Monday, August 22, 2016 06:19 - CONCLUSION: Bilateral lower lobe consolidations left greater than right entirely new since July. Dual- lumen catheter in good position. No pneumothorax. Syd Salmeron MD Lung Scan-VQ Nuclear Medicine 08/22/16 0000 Signed Impressions: Service Date/Time: Monday, August 22, 2016 11:43 - CONCLUSION: Low probability pulmonary embolus. Wilian Lopez MD Aorta Ultrasound 08/22/16 0000 Signed Impressions: Service Date/Time: Monday, August 22, 2016 12:09 - CONCLUSION: No sonographic evidence of abdominal aortic aneurysm. Samuel Ward MD Hospital Course 56 year old male with PMH of ESRD on dialysis, CHF, NM with stent, diabetes type II, peripheral arterial disease, peripheral neuropathy, colostomy bag. He had rather sudden onset of dyspnea and chest pain that started the night before admission. The pain bore through to his upper back and radiated to his shoulder and arm. He normally is able to walk 2 to 3 blocks, but that night could not walk very far at all. The pain was 8/10. By the next day the chest pain was gone. V/Q scan ruled out PE. Chest x-ray showed bilateral infiltrates at the bases. His BNP was significantly elevated to 2838. He was given oxygen, Duonebs , Predniosone, Cefepime, Azithromycin with significant improvement in breathing. Aortic ultrasound did not show an acute aortic process. Troponins and EKGs were trended and did elevated, but it was felt to be more due to his comorbidities. He did not have chest pain at the time, and EKG's were unchanged. He was treated empirically with cefepime and azithromycin for possible pneumonia. CHF was treated with sodium and fluid restriction, diuretics , and he continued on beta mary and jerica inhibitor. Nephrology was on board for his ESRD and dialysis needs. Unfortunately he left against medical advise before complete discharge planning could take place. Pt Condition on Discharge: Stable Discharge Instructions DIET: Follow Instructions for: Renal Failure Diet Additional Diet Instructions: 1.5 g sodium restriction Fluid Restrictions: 2L fluid Jorge Camarena MD R2 Aug 24, 2016 15:50
--- NOTE | 2016-08-29 08:38 | PQ ---
Physician Query Response Document PATIENT: BROWN AGUIAR : 1960 ADMIT DATE: 08/22/2016 8:17 AM DISCH DATE: 08/24/2016 8:17 AM RESPONDING PROVIDER #: Avelina QUERY TEXT: Sepsis Query Based on your medical judgement, can you further clarify the folowiin. Sepsis (SIRS due to an infection)POSSIBLE SEPSIS 2. Sepsis with Organ Dysfunction 3. A localized Infection only 4. Another condition - please specify 5. Unable to determine - please explain. Depending on your selection above, please indicate one of the below if applicable: - Sepsis was present on Admission - Sepsis developed after admission The patient's Clinical Indicators include: Indicators: WBC 19.7 BAND 5% LACTIC ACID 1.4 heart rate 111 and rr 26 on admission sat 75% PNA Bilateral lower lobe consolidation w RT SVC dual - lumen cath JUST FINISHED VANCO ON SAT FRM RCT ADM FOR BACTEREMIA source RIJ permacath Query created by: Christine Lemus on 08/23/2016 2:16 PM RESPONSE TEXT: Mr Aguiar met the criteria for sepsis and was treated for pneumonia so he was septic on admission Electronically signed by: Alaina Curtis MD 08/29/2016 8:35 AM
== END 2016-08-24 08:17 | disposition left against medical advice (07) | DRG 871 ==
LOC: NEPC 06:02 → NEDA 08:17 → N04B 16:18
PROVIDERS: ADMIT Family Medicine; ATTEND Family Medicine
PROC: 5A1D00Z (ICD-10-PCS; principal; 2016-08-23)
DX: A41.9 Sepsis, unspecified organism (principal); J18.9 Pneumonia, unspecified organism; L89.151 Pressure ulcer of sacral region, stage 1; N18.6 End stage renal disease; K31.84 Gastroparesis; N25.81 Secondary hyperparathyroidism of renal origin; L89.159 Pressure ulcer of sacral region, unspecified stage; I12.0 Hypertensive chronic kidney disease with stage 5 chronic kidney disease or end stage renal disease; E11.22 Type 2 diabetes mellitus with diabetic chronic kidney disease; E11.43 Type 2 diabetes mellitus with diabetic autonomic (poly)neuropathy; E11.65 Type 2 diabetes mellitus with hyperglycemia; Z99.2 Dependence on renal dialysis; Z93.3 Colostomy status; Z95.5 Presence of coronary angioplasty implant and graft; Z95.820 Peripheral vascular angioplasty status with implants and grafts; Z87.442 Personal history of urinary calculi; I25.2 Old myocardial infarction; F41.9 Anxiety disorder, unspecified; F32.9 Major depressive disorder, single episode, unspecified; E78.00 Pure hypercholesterolemia, unspecified; I50.9 Heart failure, unspecified; K21.9 Gastro-esophageal reflux disease without esophagitis; K40.90 Unilateral inguinal hernia, without obstruction or gangrene, not specified as recurrent; R09.02 Hypoxemia; I25.10 Atherosclerotic heart disease of native coronary artery without angina pectoris; Z80.6 Family history of leukemia; R00.0 Tachycardia, unspecified; Y95 Nosocomial condition; D63.1 Anemia in chronic kidney disease; E86.0 Dehydration; I34.0 Nonrheumatic mitral (valve) insufficiency; F12.90 Cannabis use, unspecified, uncomplicated; F17.200 Nicotine dependence, unspecified, uncomplicated; I73.9 Peripheral vascular disease, unspecified; Z91.19 Patient's noncompliance with other medical treatment and regimen
CPT/HCPCS: 71010; 76775; 78582; 80048; 80053; 80061; 82272; 82550; 82728; 82948; 83540; 83550; 83605; 83690; 83735; 83880; 84484; 85007; 85014; 85018; 85025; 85027; 85610; 85730; 86403; 87040; 87077; 87186; 87205; 90935; 93005; 93306; 94150; 94620; 94640; 94664; 96365; 96374; 96375; A9540; A9567; J0456; J0692; J1644; J1815; J2270; J2405; J2930; J7050; J7512

== ENCOUNTER 2016-09-18 11:44 | Inpatient (IN) | payer MEDICARE, OTHER ==
[2016-09-18] VITALS (7 sets, daily range): BP systolic 95–122; BP diastolic 56–73; PULSE 66–92; RESP 16–20; TEMP 97–98.7; O2SAT 97–100
[~2016-09-18] VITALS: Ht 170.2 cm; Wt 70.0 kg
[~2016-09-18 11:44] MED LIST changes: -CITA20TA4 PO; +ENAL10TA PO; -ENAL5TAB PO; -TRAM50TA PO; +VENL37.595 PO; -ZOFR8TAB4 SL
--- NOTE | 2016-09-18 12:04 | PD ---
Physical Exam Date Seen by Provider: September 18, 2016 Time Seen by Provider: 12:01 Narrative 56 Y/O male with Hx dialysis with permacath in right upper chest with + MRSA. Patient denies Chest or cardiac pain, but was sent for Evaluation for possible Endocarditis. V/S Stable Awaiting Bed Placement. Data Data Last Documented VS Vital Signs Date Time Temp Pulse Resp B/P Pulse Ox O2 Delivery O2 Flow Rate FiO2 09/18/16 11:46 98.7 80 20 107/56 98 Room Air [facility] Medical Record Reviewed: Yes Supervised Visit with ALIDA: Yes Condition: Stable Jeffry Mendez September 18, 2016 12:03
[2016-09-18] MEDS ORDERED: LYRI75CA PO (12:38)
--- NOTE | 2016-09-18 13:07 | PD ---
HPI Chief Complaint: Medical Clearance Time Seen by Provider: 13:00 Travel History International Travel<30 days: No Contact w/Intl Traveler<30days: No Traveled to known affect area: No History of Present Illness HPI Patient is a 56-year-old male presenting to the emergency department due to positive blood cultures. Patient had blood cultures which resulted positive for MRSA, they resulted after patient left AMA from [facility].. He was sent by Dr. Kennedy to have PermCath changed out. Patient has no physical complaints today, no chest pain, no shortness of breath, no fever, no chills. PFSH Past Medical History Hx Anticoagulant Therapy: No Arthritis: No Asthma: No Blood Disorders: No Anxiety: Yes Depression: Yes Heart Rhythm Problems: No Cancer: No Cardiac Catheterization: Yes Cardiovascular Problems: Yes (CHF, HEART ATTACK) High Cholesterol: Yes Chest Pain: Yes Congestive Heart Failure: Yes COPD: No Cerebrovascular Accident: No Diabetes: Yes Patient Takes Glucophage: No Dialysis: Yes (RIGHT CHEST VAS CATH) Diminished Hearing: No Gastrointestinal Disorders: Yes (gastroparesis) GERD: Yes Genitourinary: Yes Headaches: No Hypertension: Yes Immune Disorder: No Inguinal Hernia: Yes Implanted Vascular Access Dvce: Yes (L FOREARM fistula) Kidney Stones: Yes Musculoskeletal: No Neurologic: Yes (neuropathy) Psychiatric: Yes Reproductive: No Respiratory: Yes ( PNA) Immunizations Current: Yes Migraines: No Myocardial Infarction: Yes (2003) Renal Failure: Yes (chronic kidney disease on hemodialysis) Seizures: No Sleep Apnea: No Thyroid Disease: No Influenza Vaccination: Yes Past Surgical History Abdominal Surgery: Yes (bowel resection) Body Medical Devices: Cardiac Stent Coronary Stent: Yes Ear Surgery: No Endocrine Surgery: No Eye Surgery: No Genitourinary Surgery: No Gynecologic Surgery: No Oral Surgery: No Thoracic Surgery: No Other Surgery: Yes (LFA fistula, right leg fem pop) Social History Alcohol Use: No Tobacco Use: Yes (05/08 PPD) Substance Use: No Allergies-Medications (Allergen,Severity, Reaction): Coded Allergies: No Known Allergies (Unverified , 09/18/16) Reported Meds & Prescriptions Reported Meds & Active Scripts Active Protonix (Pantoprazole Sodium) 40 Mg Tab 40 Mg PO BID Reported Lyrica (Pregabalin) 75 Mg Cap 75 Mg PO BID Enalapril (Enalapril Maleate) 10 Mg Tab 10 Mg PO DAILY Bumex (Bumetanide) 2 Mg Tab 2 Mg PO DAILY Norvasc (Amlodipine Besylate) 10 Mg Tab 10 Mg PO DAILY Buspirone (Buspirone HCl) 10 Mg Tab 10 Mg PO BID Metoprolol Tartrate 50 Mg Tab 50 Mg PO BID Review of Systems Except as stated in HPI: all other systems reviewed are Neg General / Constitutional: No: Fever, Chills HENT: No: Headaches Cardiovascular: No: Chest Pain or Discomfort Respiratory: No: Shortness of Breath Gastrointestinal: Positive: Nausea (chronic issue), No: Vomiting, Diarrhea, Abdominal Pain Genitourinary: No: Dysuria Neurologic: Positive: Sensory Disturbance (neuropathy), No: Weakness, Dizziness, Syncope, Focal Abnormalities, Change in Mentation Physical Exam Narrative GENERAL: Well-developed, well-nourished, alert male, appears older than stated age. SKIN: Focused skin assessment warm/dry. PermCath in right upper chest wall. HEAD: Atraumatic. Normocephalic. EYES: Pupils equal and round. No scleral icterus. No injection or drainage. ENT: No nasal bleeding or discharge. Mucous membranes pink and moist. NECK: Trachea midline. No JVD. CARDIOVASCULAR: Regular rate and rhythm. No murmur appreciated. RESPIRATORY: No accessory muscle use. Clear to auscultation. Breath sounds equal bilaterally. GASTROINTESTINAL: Abdomen soft, non-tender, nondistended. Hepatic and splenic margins not palpable. MUSCULOSKELETAL: No obvious deformities. No clubbing. No cyanosis. No edema. NEUROLOGICAL: Awake and alert. No obvious cranial nerve deficits. Motor grossly within normal limits. Normal speech. PSYCHIATRIC: Appropriate mood and affect; insight and judgment normal. Data Data Last Documented VS Vital Signs Date Time Temp Pulse Resp B/P Pulse Ox O2 Delivery O2 Flow Rate FiO2 09/18/16 13:22 16 98 Room Air 09/18/16 11:46 98.7 80 107/56 Orders Complete Blood Count With Diff (09/18/16 12:41) Comprehensive Metabolic Panel (09/18/16 12:41) Act Partial Throm Time (Ptt) (09/18/16 12:41) Prothrombin Time / Inr (Pt) (09/18/16 12:41) Blood Culture (09/18/16 12:41) Magnesium (Mg) (09/18/16 12:41) Electrocardiogram (09/18/16 12:41) Troponin I (09/18/16 12:41) Iv Access Insert/Monitor (09/18/16 12:41) Ecg Monitoring (09/18/16 12:41) Oximetry (09/18/16 12:41) Chest, Single Ap (09/18/16 ) Consult Infectious Disease (09/18/16 ) Ondansetron Inj (Zofran Inj) (09/18/16 14:30) Admit Order (Ed Use Only) (09/18/16 14:31) Consult Nephrology (09/18/16 ) Admit To Inpatient (09/18/16 ) Code Status (09/18/16 14:31) Vital Signs (Adult) Q4H (09/18/16 14:31) Activity Oob With Assistance (09/18/16 14:31) Sodium Chloride 0.9% Flush (Ns Flush) (09/18/16 14:45) Sodium Chloride 0.9% Flush (Ns Flush) (09/18/16 21:00) Acetaminophen (Tylenol) (09/18/16 14:45) Comprehensive Metabolic Panel (09/19/16 06:00) Complete Blood Count With Diff (09/19/16 06:00) Case Management Consult (09/18/16 14:31) Scd Bilateral/Knee High WATSON.BID (09/18/16 14:31) Atte Bilateral/Knee High WATSON.QSHIFT (09/18/16 14:31) Acetaminophen (Tylenol) (09/18/16 14:45) Naloxone Inj (Narcan Inj) (09/18/16 14:45) Inpatient Certification (09/18/16 ) Bedside Glucose WATSON.AC&HS (09/18/16 14:31) Blood Glucose Goal (Criteria) (09/18/16 14:31) Hypoglycemia 51 - 69 Mg/Dl (09/18/16 14:31) Hypoglycemia 50 Mg/Dl Or < (09/18/16 14:31) Notify Dr: Other (09/18/16 14:31) Dextrose 50% In Leobardo (Vial) Inj (D50w (Vi (09/18/16 14:45) Glucagon Inj (Glucagon Inj) (09/18/16 14:45) Medium Novolog Scale (09/18/16 16:00) Diet 1800 Ada Cons Carb (09/18/16 Dinner) Labs Laboratory Tests Test 09/18/16 13:10 White Blood Count 10.8 TH/MM3 Red Blood Count 3.55 MIL/MM3 Hemoglobin 10.4 GM/DL Hematocrit 32.5 % Mean Corpuscular Volume 91.6 FL Mean Corpuscular Hemoglobin 29.3 PG Mean Corpuscular Hemoglobin 32.0 % Concent Red Cell Distribution Width 16.3 % Platelet Count 189 TH/MM3 Mean Platelet Volume 9.8 FL Neutrophils (%) (Auto) 74.6 % Lymphocytes (%) (Auto) 14.9 % Monocytes (%) (Auto) 8.3 % Eosinophils (%) (Auto) 1.5 % Basophils (%) (Auto) 0.7 % Neutrophils # (Auto) 8.0 TH/MM3 Lymphocytes # (Auto) 1.6 TH/MM3 Monocytes # (Auto) 0.9 TH/MM3 Eosinophils # (Auto) 0.2 TH/MM3 Basophils # (Auto) 0.1 TH/MM3 CBC Comment AUTO DIFF Differential Total Cells 100 Counted Neutrophils % (Manual) 77 % Lymphocytes % 10 % Monocytes % 9 % Eosinophils % 3 % Neutrophils # (Manual) 8.4 TH/MM3 Myelocytes 1 % Differential Comment FINAL DIFF MANUAL Platelet Estimate NORMAL Platelet Morphology Comment NORMAL Prothrombin Time 10.4 SEC Prothromb Time International 0.9 RATIO Ratio Activated Partial 27.7 SEC Thromboplast Time Sodium Level 133 MEQ/L Potassium Level 6.0 MEQ/L Chloride Level 99 MEQ/L Carbon Dioxide Level 25.4 MEQ/L Anion Gap 9 MEQ/L Blood Urea Nitrogen 45 MG/DL Creatinine 7.41 MG/DL Estimat Glomerular Filtration 8 ML/MIN Rate Random Glucose 135 MG/DL Calcium Level 8.4 MG/DL Magnesium Level 2.1 MG/DL Total Bilirubin 0.3 MG/DL Aspartate Amino Transf 15 U/L (AST/SGOT) Alanine Aminotransferase 12 U/L (ALT/SGPT) Alkaline Phosphatase 140 U/L Troponin I LESS THAN 0.02 NG/ML Total Protein 7.2 GM/DL Albumin 3.2 GM/DL MDM Medical Decision Making Medical Screen Exam Complete: Yes Emergency Medical Condition: Yes Medical Record Reviewed: Yes Interpretation(s) Vital Signs Date Time Temp Pulse Resp B/P Pulse Ox O2 Delivery O2 Flow Rate FiO2 09/18/16 11:46 98.7 80 20 107/56 98 Room Air Differential Diagnosis Bacteremia versus sepsis versus chronic renal failure versus electrolyte abnormality versus cardiac arrhythmia versus other Narrative Course Patient is a 56-year-old male presenting to emergency for an on the advice of Dr. Kennedy his curriculum coach. I spoke with Dr. Kennedy who states that he needs his PermCath changed out, it will need to be out for 48 hours. Patient had blood cultures drawn which were positive for MRSA. He requested that Dr. Bauman of infectious disease consulted, order placed. Labs and imaging ordered and pending, patient's vital signs are stable, he is resting comfortably. IV access established, patient placed on telemetry monitoring and continuous pulse oximetry. CBC shows no elevation in white count, hemoglobin is improved when compared to prior.. Chemistry with potassium 6.0, BUN and creatinine are elevated, this is to be expected. Troponin is negative. Coags are unremarkable Chest x-ray shows no acute disease. Patient's vital signs at been stable. Discussed with Dr. Taylor, what had been discussed with Dr. Kennedy. He accepted admission. He requested a consult be placed to Dr. Kennedy. The consult has been placed. Patient is agreeable to inpatient stay at this time. Diagnosis Primary Impression: Bacteremia Additional Impressions: ESRD (end stage renal disease) on dialysis Hyperkalemia Anemia Qualified Code: D64.9 - Anemia, unspecified type Admitting Information Admitting Physician Requests: Admit Condition: Stable Ashleigh Ladd September 18, 2016 13:07
[2016-09-18 13:27] LABS: BASOPHIL # 0.1 TH/MM3 (0-0.2); BASOPHIL % 0.7 % (0.0-2.0); EOSINOPHIL # 0.2 TH/MM3 (0-0.4); EOSINOPHIL % 1.5 % (0.0-4.0); HEMATOCRIT 32.5 % (39.0-51.0); LYMPH % 14.9 % (9.0-44.0); LYMPHOCYTE # 1.6 TH/MM3 (1.0-4.8); MEAN CELL VOLUME 91.6 FL (80.0-100.0); MEAN CORPUSCULAR HEMOGLOBIN 29.3 PG (27.0-34.0); MONO % 8.3 % (0.0-8.0); NEUT % 74.6 % (16.0-70.0); PLATELET COUNT 189 TH/MM3 (150-450); RED BLOOD COUNT 3.55 MIL/MM3 (4.50-5.90); RED CELL DISTRIBUTION WIDTH 16.3 % (11.6-17.2); WHITE BLOOD COUNT 10.8 TH/MM3 (4.0-11.0)
[2016-09-18 13:31] LABS: HEMO FLAGS AUTO DIFF
[2016-09-18 13:35] LABS: APTT (PATIENT) 27.7 SEC (24.3-30.1); INTERNATIONAL NORMALIZED RATIO 0.9 RATIO; PROTHROMBIN TIME - PATIENT 10.4 SEC (9.8-11.6)
--- NOTE | 2016-09-18 13:55 | RADRPT ---
EXAM DATE/TIME: 09/18/2016 12:49 [facility] COMPARISON: CHEST SINGLE AP, August 22, 2016, 6:19. INDICATIONS : Fever, short of breath, redness around dyalsis catheter. MEDICAL HISTORY : Diabetes mellitus type II. Dyalsis SURGICAL HISTORY : Tenchoff catheter ENCOUNTER: Initial ACUITY: 3 days PAIN SCORE: 0/10 LOCATION: Right chest FINDINGS: A single view of the chest demonstrates the lungs to be symmetrically aerated without evidence of mas s, infiltrate or effusion. The previously noted infiltrates have resolved. The cardiomediastinal con tours are unremarkable. There is a right-sided central line in place. Osseous structures are intact. CONCLUSION: The lungs are grossly clear. No new infiltrates are seen. Joselito Tong MD on September 18, 2016 at 13:52 Board Certified Radiologist. This report was verified electronically.
[2016-09-18 13:59] LABS: EOSINOPHILS 3 % (0-4); MYELOCYTES 1 % (0-0); NEUTROPHIL # MANUAL DIFF 8.4 TH/MM3 (1.8-7.7); POLYS (SEG NEUTROPHILS) 77 % (16-70); WBC DIFF SAMPLE 100
[2016-09-18 14:00] LABS: ANION GAP 9 MEQ/L (5-15); AST (GOT) 15 U/L (15-37); BICARBONATE 25.4 MEQ/L (21.0-32.0); BLOOD UREA NITROGEN 45 MG/DL (7-18); CHLORIDE 99 MEQ/L (98-107); GLOMERULAR FILTRATION RATE 8 ML/MIN (>89); MAGNESIUM 2.1 MG/DL (1.5-2.5); SODIUM (NA) 133 MEQ/L (136-145)
[2016-09-18 14:01] LABS: PLATELET ESTIMATE SMEAR NORMAL (NORMAL); PLATELET MORPHOLOGY NORMAL (NORMAL); SCAN/DIFF FINAL DIFF MANUAL
[2016-09-18 14:05] LABS: ALKALINE PHOSPHATASE 140 U/L (45-117); ALT (GPT) 12 U/L (12-78); TOTAL BILIRUBIN ADULT 0.3 MG/DL (0.2-1.0)
[2016-09-18] MEDS ORDERED: ONDANSETRON HCL 4 MG/2 ML VIAL IV PUSH ONE (14:30)
[2016-09-18] MEDS ORDERED: SODIUM CHLORIDE 0.9% FLUSH 10 ML FLUSH IV FLUSH PRN ×2 (14:45→18:00)
[2016-09-18] MEDS ORDERED: ACETAMINOPHEN 325 MG TAB PO PRN ×3 (14:45→18:00)
[2016-09-18] MEDS ORDERED: NALOXONE HCL 0.4 MG/ML AMP IV PRN (14:45)
[2016-09-18] MEDS ORDERED: DEXTROSE 50% IN WATER 50 ML VIAL(D50) IV PUSH PRN (14:45)
[2016-09-18] MEDS ORDERED: GLUCAGON 1 MG/ML VIAL OTHER PRN (14:45)
--- NOTE | 2016-09-18 15:22 | HHI.HP ---
[facility] Service [place] [facility] Primary Care Physician [facility] Admission Diagnosis BACTEREMIA Diagnoses: (1) MRSA bacteremia (2) HTN (hypertension) (3) Diabetic neuropathy (4) ESRD on hemodialysis Chief Complaint: outside positive MRSA blood culture Travel History International Travel<30 Days: No Contact w/Intl Traveler <30 Da: No Traveled to Known Affected Are: No History of Present Illness 56-year-old male with history of end-stage renal disease on hemodialysis, hypertension, gastroparesis and to the ED by his manager organizational for evaluation of outside positive MRSA blood culture/bacteremia. Patient states, about a week ago blood culture was obtained during dialysis has been now resulted positive. He reports completed antibiotic therapy has Sunday or for an infection. He had recently had permacath exchange. He denies any febrile episode Past Family Social History Past Medical History hypertension [place] 2003 CAD s/p stent x 1 CHF diabetes mellitus Gangrenous colon with resection, colostomy. Gastroparesis. Past Surgical History Colostomy Right big toe amputated Right leg fem-pop bypass Stent - cardiac x 1 Vascular catheter placed right upper chest Pyloric sphincter injections 07/26/16 Reported Medications Protonix (Pantoprazole Sodium) 40 Mg Tab 40 Mg PO BID Lyrica (Pregabalin) 75 Mg Cap 75 Mg PO BID Enalapril (Enalapril Maleate) 10 Mg Tab 10 Mg PO DAILY Bumex (Bumetanide) 2 Mg Tab 2 Mg PO DAILY Norvasc (Amlodipine Besylate) 10 Mg Tab 10 Mg PO DAILY Buspirone (Buspirone HCl) 10 Mg Tab 10 Mg PO BID Metoprolol Tartrate 50 Mg Tab 50 Mg PO BID Allergies: Coded Allergies: No Known Allergies (Unverified , 09/18/16) Family History Mother with leukemia Brother with brain aneurysm Father from injuries sustained in a motor vehicle collision Social History Alcohol Use: No Tobacco Use: Yes (1/2 PPD) Substance Use: No Physical Exam Vital Signs Vital Signs Date Time Temp Pulse Resp B/P Pulse Ox O2 Delivery O2 Flow Rate FiO2 09/18/16 13:22 16 98 Room Air 09/18/16 11:46 98.7 80 20 107/56 98 Room Air Physical Exam GENERAL: This is a well-nourished, well-developed patient, in no apparent distress. SKIN: No rashes, ecchymoses or lesions. Cool and dry. Permacath in the right anterior chest HEAD: Atraumatic. Normocephalic. No temporal or scalp tenderness. EYES: Pupils equal round and reactive. Extraocular motions intact. No scleral icterus. No injection or drainage. ENT: Nose without bleeding, purulent drainage or septal hematoma. Throat without erythema, tonsillar hypertrophy or exudate. Uvula midline. Airway patent. NECK: Trachea midline. No JVD or lymphadenopathy. Supple, nontender, no meningeal signs. CARDIOVASCULAR: Regular rate and rhythm without murmurs, gallops, or rubs. RESPIRATORY: Clear to auscultation. Breath sounds equal bilaterally. No wheezes , rales, or rhonchi. GASTROINTESTINAL: Abdomen soft, non-tender, nondistended. No hepato-splenomegaly , or palpable masses. No guarding. Colostomy bag in place MUSCULOSKELETAL: Extremities without clubbing, cyanosis, or edema. No joint tenderness, effusion, or edema noted. No calf tenderness. Negative Homans sign bilaterally. NEUROLOGICAL: Awake and alert. Cranial nerves II through XII intact. Motor and sensory grossly within normal limits. Five out of 5 muscle strength in all muscle groups. Normal speech. Laboratory Laboratory Tests Test 09/18/16 13:10 White Blood Count 10.8 Red Blood Count 3.55 Hemoglobin 10.4 Hematocrit 32.5 Mean Corpuscular Volume 91.6 Mean Corpuscular Hemoglobin 29.3 Mean Corpuscular Hemoglobin 32.0 Concent Red Cell Distribution Width 16.3 Platelet Count 189 Mean Platelet Volume 9.8 Neutrophils (%) (Auto) 74.6 Lymphocytes (%) (Auto) 14.9 Monocytes (%) (Auto) 8.3 Eosinophils (%) (Auto) 1.5 Basophils (%) (Auto) 0.7 Neutrophils # (Auto) 8.0 Lymphocytes # (Auto) 1.6 Monocytes # (Auto) 0.9 Eosinophils # (Auto) 0.2 Basophils # (Auto) 0.1 CBC Comment AUTO DIFF Differential Total Cells 100 Counted Neutrophils % (Manual) 77 Lymphocytes % 10 Monocytes % 9 Eosinophils % 3 Neutrophils # (Manual) 8.4 Myelocytes 1 Differential Comment FINAL DIFF MANUAL Platelet Estimate NORMAL Platelet Morphology Comment NORMAL Prothrombin Time 10.4 Prothromb Time International 0.9 Ratio Activated Partial 27.7 Thromboplast Time Sodium Level 133 Potassium Level 6.0 Chloride Level 99 Carbon Dioxide Level 25.4 Anion Gap 9 Blood Urea Nitrogen 45 Creatinine 7.41 Estimat Glomerular Filtration 8 Rate Random Glucose 135 Calcium Level 8.4 Magnesium Level 2.1 Total Bilirubin 0.3 Aspartate Amino Transf 15 (AST/SGOT) Alanine Aminotransferase 12 (ALT/SGPT) Alkaline Phosphatase 140 Troponin I LESS THAN 0.02 Total Protein 7.2 Albumin 3.2 Date/Time Procedure Status Source Growth 09/18/16 13:16 Aerobic Blood Culture Received Blood Peripheral Pending 09/18/16 13:16 Anaerobic Blood Culture Received Blood Peripheral Pending Result Diagram: 09/18/16 1310 09/18/16 1310 Imaging Last Impressions Chest X-Ray 09/18/16 0000 Signed Impressions: Service Date/Time: Sunday, September 18, 2016 12:49 - CONCLUSION: The lungs are grossly clear. No new infiltrates are seen. Joselito Tong MD Assessment and Plan Problem List: (1) MRSA bacteremia ICD Code: R78.81 Status: Acute (2) ESRD (end stage renal disease) on dialysis ICD Code: N18.6 Status: Chronic (3) Hyperkalemia ICD Code: E87.5 Status: Acute (4) HTN (hypertension) ICD Code: I10 Status: Chronic (5) Diabetic neuropathy ICD Code: E11.40 Status: Chronic (6) DM (diabetes mellitus) ICD Code: E11.9 Status: Chronic (7) Tobacco abuse counseling ICD Code: Z71.6 Status: Acute Assessment and Plan 56-year-old man with MRSA bacteremia from outside blood culture Repeat blood culture Infectious disease specialist consultation pending Hold antibiotic until patient seen by ID Plan to remove Permacath History of gastroparesis-chronic and stable GERD. Chronic. Resume PPI End-stage renal disease. On hemodialysis Consult nephrology for dialysis. Plan to remove Permacath Depression. Chronic. Resume home medications Diabetes type 2 Not currently on any anti-glycemic agents Check hemoglobin A1c and treat accordingly Start ISS with fingerstick blood glucose monitoring Hyperkalemia. Treat with Kayexalate 1 Follow-up electrolytes. Nephrology consultation pending Hypertension. Chronic. Hold blood pressure medications for now secondary to low BP Diabetic neuropathy Resume Lyrica I told patient that I will not be starting any narcotics at this time Tobacco abuse Tobacco counseling provided Patient declined nicotine patch DVT prophylaxis: Bilateral SCDs Code Status Full code Discussed Condition With Patient, ED physician Physician Certification 2 Midnight Certification Type: Admission for Inpatient Services Order for Inpatient Services The services are ordered in accordance with Medicare regulations or non- Medicare payer requirements, as applicable. In the case of services not specified as inpatient-only, they are appropriately provided as inpatient services in accordance with the 2-midnight benchmark. Estimated LOS (days): 2 days is the estimated time the patient will need to remain in the hospital, assuming treatment plan goals are met and no additional complications. Post-Hospital Plan: Not yet determined Dallas Taylor MD September 18, 2016 15:21
[2016-09-18] MEDS ORDERED: RESP: ALBUTEROL 2.5 MG/IPRATROPIUM 0.5 MG NEB (PRN) NEB (16:00)
[2016-09-18] MEDS ORDERED: INSULIN ASPART SUPPLEMENTAL SCALE SQ SCH (16:00)
--- NOTE | 2016-09-18 16:07 | PD.ID.CON ---
History of Present Illness Service ID Consult Requested By Dr Patino/ Dr Ladd Reason for Consult MRSA bactermeia Primary Care Physician [facility] Diagnoses: History of Present Illness case was dw Dr Kennedy over the phone pt is 57 yo male with ESRD presenting from HD center with MRSA bacteremia He is on HD for 1 year He has a Permacath for dyalisis and it was changed 2 weeks ago after Pt had a recent h/o Strep capitis bacteremia He c/o having fever, chills, night sweates x 3-4 months He aparently left AMA from [facility]. He was sent for admission to ER I saw him during is HD treatment Review of Systems Constitutional: COMPLAINS OF: Fever, Chills, Night Sweats Neurologic: COMPLAINS OF: Paresthesias Except as stated in HPI: all other systems reviewed are Neg Past Family Social History Allergies: Coded Allergies: No Known Allergies (Unverified , 09/18/16) Past Medical History hypertension [place] 2003 CAD s/p stent x 1 CHF diabetes mellitus Gangrenous colon with resection, colostomy. Gastroparesis. PVD Past Surgical History Colostomy Right big toe amputated Right leg fem-pop bypass, [place] vein, patch by Dr Nguyễn in 12/2015 Stent - cardiac x 1 Active Ordered Medications Medications where reviewed in EMR Antibiotics Include: none Family History Non-Contributory. Social History + 1/2 ppd Tobacco. No ETOH. No Illicit Drugs. Physical Exam Vital Signs Vital Signs Date Time Temp Pulse Resp B/P Pulse Ox O2 Delivery O2 Flow Rate FiO2 09/18/16 15:34 92 16 104/61 100 Room Air 09/18/16 14:30 66 18 108/68 99 Room Air 09/18/16 13:30 68 16 95/58 97 Room Air 09/18/16 13:22 16 98 Room Air 09/18/16 12:30 70 16 109/59 97 Room Air 09/18/16 11:46 98.7 80 20 107/56 98 Room Air Physical Exam CONSTITUTIONAL/GENERAL: This is an adequately nourished patient, in no apparent distress. TUBES/LINES/DRAINS: R IJ permacath in place and site looks uremarkable SKIN: No jaundice, rashes, or lesions. . Skin temperature appropriate. Not diaphoretic. HEAD: Atraumatic. Normocephalic. EYES: Pupils equal and round and reactive. Extraocular motions intact. No scleral icterus. No injection or drainage. Fundi not examined. ENT: Hearing grossly normal. Nose without bleeding or purulent drainage. Oral mucosae moist without visible erythema, exudates, masses, or lesions. edentulous NECK: Trachea midline. Supple, nontender. CARDIOVASCULAR: Regular rate and rhythm without murmurs, gallops, or rubs. No JVD. Peripheral pulses symmetric. RESPIRATORY/CHEST: Symmetric, unlabored respirations. Clear to auscultation. Breath sounds equal bilaterally. No wheezes, rales, or rhonchi. GASTROINTESTINAL: Abdomen soft, non-tender, nondistended. No hepato-splenomegaly , or palpable masses. No guarding. Bowel sounds present. Stoma in place RLQ with normal appearing stool GENITOURINARY: Without palpable bladder distension. MUSCULOSKELETAL: Extremities without clubbing, cyanosis, or edema. L foot w/o open wounds R foot sp 1st ray amputation - wekll healed No mottling or clubbing. RLE periferal bypass incision well healed L FA fistula - no thrill LYMPHATICS: No palpable cervical or supraclavicular adenopathy. NEUROLOGICAL: Awake and alert. Motor and sensory grossly within normal limits. Follows commands. Normal speech . Moves all extremities. PSYCHIATRIC: No obvious anxiety/depression. no apparent hallucinations or other psychotic thought process. Laboratory Laboratory Tests Test 09/18/16 13:10 White Blood Count 10.8 Red Blood Count 3.55 Hemoglobin 10.4 Hematocrit 32.5 Mean Corpuscular Volume 91.6 Mean Corpuscular Hemoglobin 29.3 Mean Corpuscular Hemoglobin 32.0 Concent Red Cell Distribution Width 16.3 Platelet Count 189 Mean Platelet Volume 9.8 Neutrophils (%) (Auto) 74.6 Lymphocytes (%) (Auto) 14.9 Monocytes (%) (Auto) 8.3 Eosinophils (%) (Auto) 1.5 Basophils (%) (Auto) 0.7 Neutrophils # (Auto) 8.0 Lymphocytes # (Auto) 1.6 Monocytes # (Auto) 0.9 Eosinophils # (Auto) 0.2 Basophils # (Auto) 0.1 CBC Comment AUTO DIFF Differential Total Cells 100 Counted Neutrophils % (Manual) 77 Lymphocytes % 10 Monocytes % 9 Eosinophils % 3 Neutrophils # (Manual) 8.4 Myelocytes 1 Differential Comment FINAL DIFF MANUAL Platelet Estimate NORMAL Platelet Morphology Comment NORMAL Prothrombin Time 10.4 Prothromb Time International 0.9 Ratio Activated Partial 27.7 Thromboplast Time Sodium Level 133 Potassium Level 6.0 Chloride Level 99 Carbon Dioxide Level 25.4 Anion Gap 9 Blood Urea Nitrogen 45 Creatinine 7.41 Estimat Glomerular Filtration 8 Rate Random Glucose 135 Calcium Level 8.4 Magnesium Level 2.1 Total Bilirubin 0.3 Aspartate Amino Transf 15 (AST/SGOT) Alanine Aminotransferase 12 (ALT/SGPT) Alkaline Phosphatase 140 Troponin I LESS THAN 0.02 Total Protein 7.2 Albumin 3.2 Date/Time Procedure Status Source Growth 09/18/16 13:16 Aerobic Blood Culture Received Blood Peripheral Pending 09/18/16 13:16 Anaerobic Blood Culture Received Blood Peripheral Pending Result Diagram: 09/18/16 1310 09/18/16 1310 Imaging Last Impressions Chest X-Ray 09/18/16 0000 Signed Impressions: Service Date/Time: Sunday, September 18, 2016 12:49 - CONCLUSION: The lungs are grossly clear. No new infiltrates are seen. Joselito Tong MD Assessment and Plan Assessment and Plan MRSA bacteremia in a pt with Permacath Recent h./o Staph capitis bacteremia ESRD/ HD H/p RLE periferal bypass Multiple med problems - start vancomycin - remove Permacath - repeat bl clx - 2 D echo Discussed Condition With Missy Paniagua MD September 18, 2016 16:06
[2016-09-18] MEDS ORDERED: SODIUM CHLOR 0.9% 1000 ML INJ 1,000 ML IV PRN ×3 (17:50)
[2016-09-18] MEDS ORDERED: VANCOMYCIN INJ 1,000 MG in SODIUM CHLOR 0.9% 250 ML INJ 250 ML IV ONE (18:00)
[2016-09-18] MEDS ORDERED: ONDANSETRON HCL 4 MG/2 ML VIAL IV PRN (18:00)
[2016-09-18] MEDS ORDERED: cloNIDine HCL 0.1 MG TAB PO PRN (18:00)
[2016-09-18] MEDS ORDERED: HEPARIN SODIUM - IV 10,000 UNITS/10 ML VIAL IVF PRN (18:00)
[2016-09-18] MEDS ORDERED: MANNITOL 12.5 GM/50 ML VIAL IV PRN (18:00)
[2016-09-18] MEDS ORDERED: HEPARIN SODIUM - IV 10,000 UNITS/10 ML VIAL PRN (18:00)
[2016-09-18] MEDS ORDERED: diphenhydrAMINE HCL 25 MG CAP PO PRN (18:00)
[2016-09-18] MEDS ORDERED: ALBUMIN HUMAN 25% 25 GM/100 ML BAGP IV PRN (18:00)
[2016-09-18] MEDS ORDERED: GELATIN 12 MM/7 MM FOAM TOP PRN (18:00)
[2016-09-18] MEDS ORDERED: EPOETIN ALFA 10,000 UNITS/ML VIAL IV PRN (18:00)
[2016-09-18] MEDS ORDERED: NITROGLYCERIN 0.4 MG SL 25 TABS/BTL SL PRN (18:00)
[2016-09-18] MEDS ORDERED: GENTAMICIN SULFATE (DIALYSIS USE ONLY) 20 MG/2 ML VIAL IV PRN (18:00)
[2016-09-18] MEDS ORDERED: SODIUM CHLORIDE 0.9% FLUSH 10 ML FLUSH IV FLUSH SCH (21:00)
[2016-09-18] MEDS ORDERED: busPIRone HCL 10 MG TAB PO SCH (21:00)
[2016-09-18] MEDS ORDERED: PREGABALIN 75 MG CAP PO SCH (21:00)
[2016-09-18] MEDS ORDERED: PANTOPRAZOLE SOD 40 MG DELAYED RELEASE TAB PO SCH (21:00)
[2016-09-19] MEDS ORDERED: BUMETANIDE 1 MG TAB PO SCH (09:00)
--- NOTE | 2016-09-19 14:46 | EKG ---
Date Performed: 09/18/2016 Time Performed: 13:07:18 PTAGE: 56 years EKG: Sinus rhythm LOW QRS VOLTAGE IN PRECORDIAL LEADS MODERATE VOLTAGE CRITERIA FOR LVH, CONSIDER NORMAL VARIANT Benedicto red to previous tracing diffuse ST changes have improved BORDERLINE ECG PREVIOUS TRACING : 08/22/2016 18.09 DOCTOR: Kishore Juárez Interpretating Date/Time 09/19/2016 14:46:00
[2016-09-19] MEDS ORDERED: VANCOMYCIN INJ 1,000 MG in SODIUM CHLOR 0.9% 250 ML INJ 250 ML IV SCH (17:00)
== END 2016-09-18 21:46 | disposition left against medical advice (07) | DRG 871 ==
LOC: NEPC 11:44 → NEDA 14:33 → HOCA 19:32
PROVIDERS: ADMIT Hospitalist; ATTEND Hospitalist
DX: R78.81 Bacteremia (principal); N18.6 End stage renal disease; I13.2 Hypertensive heart and chronic kidney disease with heart failure and with stage 5 chronic kidney disease, or end stage renal disease; E11.22 Type 2 diabetes mellitus with diabetic chronic kidney disease; K31.84 Gastroparesis; E87.5 Hyperkalemia; E11.40 Type 2 diabetes mellitus with diabetic neuropathy, unspecified; I50.9 Heart failure, unspecified; B95.62 Methicillin resistant Staphylococcus aureus infection as the cause of diseases classified elsewhere; E11.51 Type 2 diabetes mellitus with diabetic peripheral angiopathy without gangrene; F17.210 Nicotine dependence, cigarettes, uncomplicated; Z99.2 Dependence on renal dialysis; Z95.5 Presence of coronary angioplasty implant and graft; I25.2 Old myocardial infarction
CPT/HCPCS: 71010; 80053; 82948; 83735; 84484; 85007; 85027; 85610; 85730; 87040; 90935; 93005; 96365; 96374; 96375; J1580; J1644; J2405; J3370; J7050; Q4081

== ENCOUNTER → 2016-10-20 | Day surgery (SDC) | payer MEDICARE, OTHER ==
[~2016-10-20] VITALS: Ht 170.2 cm; Wt 68.9 kg
[~2016-10-20] MED LIST changes: -BETH25 PO; -BUME1TAB28 PO; +BUPIVACAINE/EPINEPHRINE 0.5% PF 30 ML VIAL ONE; +CHLORHEXIDINE GLUCONATE 2 % 1 PACK (2 CLOTHS) TOPICAL PRN; +GELFOAM SIZE 100 OTHER ONE; +HEPARIN SODIUM - IV 10,000 UNITS/10 ML VIAL ONE; +INSULIN HUMAN REGULAR 1,000 UNITS/10 ML VIAL SQ PRN; +KETAMINE HCL 500 MG/5 ML VIAL ONE; +LACTATED RINGER'S 1000 ML IV PRN; +LYRI75CA PO; +METOPROLOL TARTRATE 25 MG TAB PO PRN; +MIDAZOLAM HCL 2 MG/2 ML VIAL ONE; +PHENYLEPHRINE HCL 10 MG/ML VIAL IV ONE; +PROPOFOL 200 MG/20 ML AMP IV ONE; +PROTAMINE SULFATE 50 MG/5 ML VIAL ONE; +SODIUM CHLORID 0.9% 500 ML IV PRN; +THROMBIN (TOPICAL) 5,000 UNIT VIAL ONE; +VANCOMYCIN HCL 1000 MG VIAL ONE; -VENL37.595 PO
[2016-10-20 06:50] VITALS: BP 138/77; PULSE 68; RESP 18; TEMP 98.5; O2SAT 100
[2016-10-20] MEDS: POVIDONE IODINE 5% (ANTISEPSIS KIT) 4 APPLICATIONS EACH NARE PRN (07:09)
[2016-10-20 07:18] LABS: AUTOMATED NEUTROPHIL # 5.3 TH/MM3 (1.8-7.7); BASOPHIL # 0.1 TH/MM3 (0-0.2); BASOPHIL % 0.8 % (0.0-2.0); EOSINOPHIL # 0.1 TH/MM3 (0-0.4); EOSINOPHIL % 1.5 % (0.0-4.0); HEMATOCRIT 30.1 % (39.0-51.0); HEMO FLAGS DIFF FINAL; LYMPH % 13.5 % (9.0-44.0); MEAN CELL VOLUME 88.5 FL (80.0-100.0); MEAN CORPUSCULAR HEMOGLOBIN 29.7 PG (27.0-34.0); MEAN CORPUSCULAR HGB CONC 33.6 % (32.0-36.0); MONO % 9.7 % (0.0-8.0); NEUT % 74.5 % (16.0-70.0); PLATELET COUNT 149 TH/MM3 (150-450); RED CELL DISTRIBUTION WIDTH 15.2 % (11.6-17.2); WHITE BLOOD COUNT 7.2 TH/MM3 (4.0-11.0)
[2016-10-20 07:35] LABS: ALT (GPT) 12 U/L (12-78); ANION GAP 8 MEQ/L (5-15); AST (GOT) 12 U/L (15-37); BICARBONATE 28.1 MEQ/L (21.0-32.0); BLOOD UREA NITROGEN 16 MG/DL (7-18); CHLORIDE 105 MEQ/L (98-107); GLOMERULAR FILTRATION RATE 14 ML/MIN (>89); POTASSIUM 4.2 MEQ/L (3.5-5.1); SODIUM (NA) 141 MEQ/L (136-145)
[2016-10-20 07:38] LABS: ALKALINE PHOSPHATASE 90 U/L (45-117); TOTAL BILIRUBIN ADULT 0.3 MG/DL (0.2-1.0)
--- NOTE | 2016-10-20 10:13 | MA ---
cc: LEORA HARPER DATE: 10/20/[address] Leora Harper PHOTOGRAPHIC PROCESS ATTENDANT Britton Campo PREOPERATIVE DIAGNOSIS End-stage renal disease, need for hemodialysis access left upper extremity. POSTOPERATIVE DIAGNOSIS End-stage renal disease, need for hemodialysis access left upper extremity. PROCEDURE Left upper extremity AV fistula brachiocephalic. IV FLUIDS About 300 cc of crystalloid. ANESTHESIA MAC with local; used approximately 15 cc of 0.25% Marcaine with epinephrine. ESTIMATED BLOOD LOSS Less than 50 cc. URINE OUTPUT Not calculated. COMPLICATIONS None. DISPOSITION To PACU. DETAILS OF PROCEDURE The patient's left upper extremity was prepped and draped in a sterile fashion after being under MAC anesthesia. I made a small incision just above the antecubital fossa in the medial aspect of the arm. It was about 2.5 to 3 cm in length. I used a scalpel and electrocautery. I dissected down using Metzenbaum scissors to the level of the brachial artery. I freed it from the two paired brachial veins and placed vessel loops around the vessel. I then isolated the cephalic median antecubital vein. It appeared that it was appropriate diameter. I did divide any side branches with small clips and 3-0 silk sutures as needed. I divided this doubly with two clips and then infused it with heparinized saline. It did dilate. I then fashioned it in a honey-shape appearance with Osborne scissors. It should be noted that we marked it over the anterior surface with a marking pen in indigo blue. We then gave the patient 3000 units of heparin. I used pediatric profunda clamps to control the brachial artery proximally and distally just above the antecubital fossa. I used an 11 blade and Osborne scissors to make my arteriotomy, performed an end-to-side anastomosis with a 5-0 Prolene. No correction sutures were needed at the end of the procedure. I did use one 5-0 Prolene to correct the outflow cephalic vein area of a side branches. There was a nice thrill in the vein at the end of the case and the patient had phasic signals in the radial and ulnar distribution distally. I used thrombin and Gelfoam to help out with hemostasis and a small piece of Surgicel. I closed in layers with 2-0 and 3-0 Vicryl absorbable suture and 4-0 Monocryl. DO JAMISON Sauceda /9:36 AM /10:03 AM JUNIOR
[2016-10-20 10:25] VITALS: BP 115/84; PULSE 81; RESP 16; TEMP 97.9; O2SAT 100
== END | disposition home or self-care (01) ==
LOC: HSDC 05:37
PROVIDERS: ATTEND Surgery
DX: N18.6 End stage renal disease (principal)
CPT/HCPCS: 36821; 76937; 80053; 85025; 86850; 86900; 86901; J1644; J2250; J2370; J2720; J3010; J3370; J7040

== ENCOUNTER 2016-11-09 16:27 | Inpatient (IN) | payer MEDICARE ==
[~2016-11-09] VITALS: Ht 170.2 cm; Wt 63.0 kg
[~2016-11-09 16:27] MED LIST changes: -BUPIVACAINE/EPINEPHRINE 0.5% PF 30 ML VIAL ONE; -CHLORHEXIDINE GLUCONATE 2 % 1 PACK (2 CLOTHS) TOPICAL PRN; -GELFOAM SIZE 100 OTHER ONE; -HEPARIN SODIUM - IV 10,000 UNITS/10 ML VIAL ONE; -INSULIN HUMAN REGULAR 1,000 UNITS/10 ML VIAL SQ PRN; -KETAMINE HCL 500 MG/5 ML VIAL ONE; -LACTATED RINGER'S 1000 ML IV PRN; -METOPROLOL TARTRATE 25 MG TAB PO PRN; -MIDAZOLAM HCL 2 MG/2 ML VIAL ONE; -PHENYLEPHRINE HCL 10 MG/ML VIAL IV ONE; -PROPOFOL 200 MG/20 ML AMP IV ONE; -PROTAMINE SULFATE 50 MG/5 ML VIAL ONE; -SODIUM CHLORID 0.9% 500 ML IV PRN; -THROMBIN (TOPICAL) 5,000 UNIT VIAL ONE; -VANCOMYCIN HCL 1000 MG VIAL ONE
[2016-11-09 16:30] VITALS: BP 205/88; PULSE 78; RESP 24; TEMP 97.7; O2SAT 100
--- NOTE | 2016-11-09 16:57 | PD ---
HPI . nausea, vomiting, chills x few hours Chief Complaint: GI Complaint Time Seen by Provider: 16:50 Travel History International Travel<30 days: No Contact w/Intl Traveler<30days: No Traveled to known affect area: No History of Present Illness HPI 56-year-old male with history of diabetes, chronic kidney disease on dialysis, hypertension, hyperlipidemia, history of colostomy secondary large intestine perforation approximately last year, neuropathy here with complaints of sudden onset of chills, nausea and vomiting that started immediately after dialysis. Patient tells me he was at the dialysis clinic and suddenly felt very bad. He went home and continued to vomit approximately 15 times was brought into the emergency department by his concerned neighbor. He reports chest pain intermittently, but tells me that it's very mild. He is complaining of pain in his abdominal area rated as a 8/10 and also tells me that his neuropathy pain is very bad. He is also reporting very intense nausea and is requesting anti- emetic via IV access. Patient denies any fever or coughing. PFSH Past Medical History Hx Anticoagulant Therapy: No Arthritis: No Asthma: No Blood Disorders: No Anxiety: Yes Depression: Yes Heart Rhythm Problems: No Cancer: No Cardiac Catheterization: Yes Cardiovascular Problems: Yes (CHF, HEART ATTACK 12 YEARS AGO) High Cholesterol: Yes Chest Pain: No Congestive Heart Failure: Yes COPD: No Cerebrovascular Accident: No Diabetes: Yes (NO MEDS SINCE ON DIALYSIS) Dialysis: Yes (RIGHT CHEST VAS CATH) Diminished Hearing: No Endocrine: Yes Gastrointestinal Disorders: Yes (gastroparesis) GERD: Yes Genitourinary: No Headaches: No Hepatitis: No Hiatal Hernia: Yes Hypertension: Yes Immune Disorder: No Inguinal Hernia: Yes Implanted Vascular Access Dvce: Yes (L FOREARM fistula) Kidney Stones: Yes Musculoskeletal: No Neurologic: Yes (neuropathy FEET AND HANDS) Psychiatric: Yes (HX ANXIETY) Reproductive: No Respiratory: Yes (HX PNEUMONIA) Immunizations Current: Yes Migraines: No Myocardial Infarction: Yes (2003) Renal Failure: Yes (chronic kidney disease on hemodialysis) Seizures: No Sleep Apnea: No Thyroid Disease: No Ulcer: No Past Surgical History Abdominal Surgery: Yes (BOWEL RESECTION, COLOSTOMY) AICD: No Body Medical Devices: Cardiac Stent, left fistula, PERMACATH UPPER LEFT CHEST Cardiac Surgery: No Coronary Stent: Yes Ear Surgery: No Endocrine Surgery: No Eye Surgery: No Genitourinary Surgery: No Gynecologic Surgery: No Joint Replacement: No Oral Surgery: No Pacemaker: No Thoracic Surgery: No Other Surgery: Yes (LFA fistula, right leg fem pop) Social History Alcohol Use: No Tobacco Use: Yes (1/2 PPD) Substance Use: No Allergies-Medications (Allergen,Severity, Reaction): Coded Allergies: No Known Allergies (Unverified , 11/09/16) Reported Meds & Prescriptions Reported Meds & Active Scripts Active Protonix (Pantoprazole Sodium) 40 Mg Tab 40 Mg PO BID Reported Lyrica (Pregabalin) 75 Mg Cap 75 Mg PO BID Enalapril (Enalapril Maleate) 10 Mg Tab 10 Mg PO DAILY Norvasc (Amlodipine Besylate) 10 Mg Tab 10 Mg PO DAILY Buspirone (Buspirone HCl) 10 Mg Tab 10 Mg PO BID Metoprolol Tartrate 50 Mg Tab 50 Mg PO BID Review of Systems General / Constitutional: Positive: Chills, No: Fever Eyes: No: Visual changes HENT: No: Headaches Cardiovascular: No: Chest Pain or Discomfort Respiratory: Positive: Shortness of Breath Gastrointestinal: Positive: Nausea, Vomiting, No: Abdominal Pain Genitourinary: No: Dysuria Musculoskeletal: No: Pain Skin: No Rash Neurologic: No: Weakness Psychiatric: No: Depression Endocrine: No: Polydipsia Hematologic/Lymphatic: No: Easy Bruising Physical Exam Narrative GENERAL: AAO x 3, mild distress, SKIN: Warm and dry. No visible rashes or bruising. HEAD: Normocephalic and atraumatic. EYES: No scleral icterus. No injection or drainage. EOM intact, PERRLA ENT: No nasal drainage noted. Mucous membranes pink. Airway patent. NECK: Supple, trachea midline. No JVD. no lymphadenopathy. CARDIOVASCULAR: Regular rate and rhythm without murmurs, gallops, or rubs. RESPIRATORY: Breath sounds equally diminished bilaterally. No accessory muscle use. No rhonchi or rales. GASTROINTESTINAL: Abdomen soft, non-tender, nondistended. EXTREMITIES: No cyanosis or edema. Pulses diminished but palpable b/l posterior tibial BACK: Nontender without obvious deformity. No CVA tenderness. NEURO: CN II-12 intact, landfill attendant strength normal b/l, UE and LE 5/5, no focal deficits PSYCH: AAO x 3, normal affect. Data Data Last Documented VS Vital Signs Date Time Temp Pulse Resp B/P Pulse Ox O2 Delivery O2 Flow Rate FiO2 11/09/16 18:21 73 20 189/85 100 Room Air 11/09/16 16:30 97.7 Orders Electrocardiogram (11/09/16 16:57) B-Type Natriuretic Peptide (11/09/16 16:57) Ckmb (Isoenzyme) Profile (11/09/16 16:57) Complete Blood Count With Diff (11/09/16 16:57) Comprehensive Metabolic Panel (11/09/16 16:57) D-Dimer (11/09/16 16:57) Magnesium (Mg) (11/09/16 16:57) Prothrombin Time / Inr (Pt) (11/09/16 16:57) Act Partial Throm Time (Ptt) (11/09/16 16:57) Troponin I (11/09/16 16:57) Chest, Single Ap (11/09/16 16:57) Ecg Monitoring (11/09/16 16:57) Bilateral Bp Monitoring (11/09/16 16:57) Iv Access Insert/Monitor (11/09/16 16:57) Oximetry (11/09/16 16:57) Oxygen Administration (11/09/16 16:57) Sodium Chloride 0.9% Flush (Ns Flush) (11/09/16 17:00) Lipase (11/09/16 16:57) Ondansetron Inj (Zofran Inj) (11/09/16 17:00) Sodium Chloride 0.9% Flush (Ns Flush) (11/09/16 17:00) Lactic Acid Sepsis Protocol (11/09/16 16:59) Blood Culture (11/09/16 16:59) Morphine Inj (Morphine Inj) (11/09/16 17:30) Prochlorperazine Inj (Compazine Inj) (11/09/16 17:30) Ct Abd/Pel W/O Iv Contrast (11/09/16 18:37) Ventilation & Perfusion Scan (11/09/16 ) Ondansetron Inj (Zofran Inj) (11/09/16 20:00) Labs Laboratory Tests Test 11/09/16 11/09/16 17:15 20:44 White Blood Count 15.1 TH/MM3 Red Blood Count 4.17 MIL/MM3 Hemoglobin 11.8 GM/DL Hematocrit 36.6 % Mean Corpuscular Volume 87.7 FL Mean Corpuscular Hemoglobin 28.3 PG Mean Corpuscular Hemoglobin 32.3 % Concent Red Cell Distribution Width 14.8 % Platelet Count 208 TH/MM3 Mean Platelet Volume 10.6 FL Neutrophils (%) (Auto) 91.0 % Lymphocytes (%) (Auto) 4.8 % Monocytes (%) (Auto) 3.8 % Eosinophils (%) (Auto) 0.2 % Basophils (%) (Auto) 0.2 % Neutrophils # (Auto) 13.8 TH/MM3 Lymphocytes # (Auto) 0.7 TH/MM3 Monocytes # (Auto) 0.6 TH/MM3 Eosinophils # (Auto) 0.0 TH/MM3 Basophils # (Auto) 0.0 TH/MM3 CBC Comment DIFF FINAL Differential Comment Prothrombin Time 11.2 SEC Prothromb Time International 1.0 RATIO Ratio Activated Partial 23.4 SEC Thromboplast Time D-Dimer Quantitative (PE/DVT) 3.23 MG/L FEU Sodium Level 132 MEQ/L Potassium Level 3.6 MEQ/L Chloride Level 97 MEQ/L Carbon Dioxide Level 24.6 MEQ/L Anion Gap 10 MEQ/L Blood Urea Nitrogen 8 MG/DL Creatinine 3.53 MG/DL Estimat Glomerular Filtration 18 ML/MIN Rate Random Glucose 197 MG/DL Lactic Acid Level 3.2 mmol/L 1.9 mmol/L Calcium Level 9.2 MG/DL Magnesium Level 1.8 MG/DL Total Bilirubin 0.5 MG/DL Aspartate Amino Transf 13 U/L (AST/SGOT) Alanine Aminotransferase 12 U/L (ALT/SGPT) Alkaline Phosphatase 96 U/L Total Creatine Kinase 54 U/L Troponin I LESS THAN 0.02 NG/ML B-Type Natriuretic Peptide 820 PG/ML Total Protein 7.8 GM/DL Albumin 3.9 GM/DL Lipase 132 U/L MDM Medical Decision Making Medical Screen Exam Complete: Yes Emergency Medical Condition: Yes Medical Record Reviewed: Yes Differential Diagnosis gastroenteritis, pneumonia, sepsis, less likely pulmonary emboli, CHF, Narrative Course 56-year-old male here with sudden onset of nausea, vomiting and chills. Patient also complained of some intermittent shortness of breath. Labs and imaging have been ordered. Workup thus far demonstrates a slightly elevated lactic acid, elevated white count with 91% neutrophil. Source is not clear. Chest x-ray without any acute finding. CT scan of the abdomen and pelvis pending. D-dimer is elevated and a VQ scan has been ordered. Last Impressions Abdomen/Pelvis CT 11/09/16 1837 Signed Impressions: Service Date/Time: , November 09, 2016 19:45 - CONCLUSION: Several prominent loops of colon in the right lower quadrant adjacent to the ostomy, containing hyperdense stool. This suggests constipation. No dilated loops of small bowel however. There is also an increase in the size of a left inguinal hernia contains a loop of small bowel and there is an increased amount of free fluid seen in the inguinal hernia and tracking along loops of small bowel in the lower left abdomen. Hiatus hernia is also increased in size. Wilian Lopez MD Chest X-Ray 11/09/16 1657 Signed Impressions: Service Date/Time: , November 09, 2016 17:10 - CONCLUSION: No acute disease. No significant change has occurred. Joselito Tong MD Patient with elevated WBC, 91% neutrophils, slight elevation of lactic acid ( renal issues) and chills. V/Q scan is pending. Recommend admission due to nausea and vomiting along with elevated WBC and neutrophils. Discussed with patient who is in agreement with treatment plan. Repeat lactic acid normal. 2132: discussed with Dr. Dyer regarding admission. V/Q scan pending. Diagnosis Primary Impression: Nausea & vomiting Qualified Code: R11.2 - Non-intractable vomiting with nausea, unspecified vomiting type Additional Impression: Leukocytosis Qualified Code: D72.829 - Leukocytosis, unspecified type Admitting Information Admitting Physician Requests: Admit Condition: Stable Monse Smart Nov 09, 2016 16:57
[2016-11-09] MEDS ORDERED: SODIUM CHLORIDE 0.9% FLUSH 10 ML FLUSH IV FLUSH PRN (17:00)
[2016-11-09] MEDS ORDERED: ONDANSETRON HCL 4 MG/2 ML VIAL IVP ONE (17:00)
[2016-11-09] MEDS ORDERED: SODIUM CHLORIDE 0.9% FLUSH 10 ML FLUSH IVF PRN (17:00)
[2016-11-09 17:05] VITALS: RESP 20; O2SAT 100
[2016-11-09] MEDS ORDERED: PROCHLORPERAZINE INJ 10 MG/2 ML VIAL IV PUSH ONE (17:30)
[2016-11-09] MEDS ORDERED: MORPHINE SULFATE 4 MG/ML INJ IV PUSH ONE (17:30)
--- NOTE | 2016-11-09 17:31 | RADRPT ---
EXAM DATE/TIME: 11/09/2016 17:10 [facility] COMPARISON: CHEST SINGLE AP, September 18, 2016, 12:49. INDICATIONS : Patient is having chest pain and short of breath since this morning. MEDICAL HISTORY : Congestive heart failure. Myocardial infarction. Hypertension. Hypercholesterolemia. SURGICAL HISTORY : Cardiac stents. Cardiac catheterization. Parts of colon and large intestine removed. ENCOUNTER: Initial ACUITY: 1 day PAIN SCORE: 2/10 LOCATION: Bilateral chest FINDINGS: A single view of the chest demonstrates the lungs to be symmetrically aerated without evidence of mas s, infiltrate or effusion. The cardiomediastinal contours are unremarkable. Osseous structures are intact. Left-sided central line is currently in place. No evidence of pneumothorax. CONCLUSION: No acute disease. No significant change has occurred. Joselito Tong MD on November 09, 2016 at 17:28 Board Certified Radiologist. This report was verified electronically.
[2016-11-09 18:04] LABS: AUTOMATED NEUTROPHIL # 13.8 TH/MM3 (1.8-7.7); BASOPHIL % 0.2 % (0.0-2.0); EOSINOPHIL % 0.2 % (0.0-4.0); HEMATOCRIT 36.6 % (39.0-51.0); HEMO FLAGS DIFF FINAL; LYMPH % 4.8 % (9.0-44.0); LYMPHOCYTE # 0.7 TH/MM3 (1.0-4.8); MEAN CELL VOLUME 87.7 FL (80.0-100.0); MEAN CORPUSCULAR HEMOGLOBIN 28.3 PG (27.0-34.0); MEAN CORPUSCULAR HGB CONC 32.3 % (32.0-36.0); MONO % 3.8 % (0.0-8.0); PLATELET COUNT 208 TH/MM3 (150-450); RED BLOOD COUNT 4.17 MIL/MM3 (4.50-5.90); RED CELL DISTRIBUTION WIDTH 14.8 % (11.6-17.2); WHITE BLOOD COUNT 15.1 TH/MM3 (4.0-11.0)
[2016-11-09 18:15] LABS: APTT (PATIENT) 23.4 SEC (24.3-30.1); PROTHROMBIN TIME - PATIENT 11.2 SEC (9.8-11.6)
[2016-11-09 18:21] VITALS: BP 189/85; PULSE 73; RESP 20; O2SAT 100
[2016-11-09 18:21] LABS: ANION GAP 10 MEQ/L (5-15); AST (GOT) 13 U/L (15-37); BICARBONATE 24.6 MEQ/L (21.0-32.0); BLOOD UREA NITROGEN 8 MG/DL (7-18); CHLORIDE 97 MEQ/L (98-107); GLOMERULAR FILTRATION RATE 18 ML/MIN (>89); MAGNESIUM 1.8 MG/DL (1.5-2.5); POTASSIUM 3.6 MEQ/L (3.5-5.1); SODIUM (NA) 132 MEQ/L (136-145)
[2016-11-09 18:22] LABS: ALT (GPT) 12 U/L (12-78)
[2016-11-09 18:26] LABS: ALKALINE PHOSPHATASE 96 U/L (45-117); TOTAL BILIRUBIN ADULT 0.5 MG/DL (0.2-1.0)
[2016-11-09 18:57] LABS: CREATINE KINASE 54 U/L (39-308)
[2016-11-09 19:53] LABS: LACTIC ACID GHOST NOT REPORTABLE
[2016-11-09] MEDS ORDERED: ONDANSETRON HCL 4 MG/2 ML VIAL IV PUSH ONE (20:00)
--- NOTE | 2016-11-09 20:39 | RADRPT ---
EXAM DATE/TIME: 11/09/2016 19:45 [facility] COMPARISON: CT ABDOMEN & PELVIS W/O CONTRAST, August 01, 2016, 22:50. INDICATIONS : Nausea and vomiting today. ORAL CONTRAST: No oral contrast ingested. RADIATION DOSE: 11.77 CTDIvol (mGy) MEDICAL HISTORY : cardiovascular disease, gastroesophageal reflux disease, chronic renal failure SURGICAL HISTORY : colostomy, cardiac catheterization ENCOUNTER: Initial ACUITY: 1 day PAIN SCALE: 7/10 LOCATION: Bilateral abdomen TECHNIQUE: Volumetric scanning of the abdomen and pelvis was performed. Using automated exposure control and ad justment of the mA and/or kV according to patient size, radiation dose was kept as low as reasonably achievable to obtain optimal diagnostic quality images. DICOM format image data is available electro nically for review and comparison. FINDINGS: There is a ostomy in the right lower quadrant. The loops of colon adjacent to the ostomy are dilated up to 6.0 cm and there is a prominent amount of stool with in these loops and in the right lower connor drant. The stool also has an increased density suggesting possible inspissated material. There is a moderate-sized left inguinal hernia which is increased in size when compared to prior exam 08/01/16. A loop of small bowel extends into the hernia and there is a moderate amount of fluid in the hernia sac measuring up to 5 cm in thickness; the amount of fluid in the hernia sac has increased when raad red to prior. There is also free fluid seen in the left lateral abdomen and tracking to the root of the mesentery. No free fluid in the pelvis. Bilateral renal cortical atrophy, multiple bilateral renal calcifications, and bilateral exophytic cy sts a similar appearance to prior CT. No calcifications within the urinary bladder. Urinary bladder margins are smooth. Wall calcification and nondistended abdominal aorta. The visualized lower lungs are clear. Moderate size hiatus hernia has increased in size when compare d to prior CT, now measuring 3.6 cm.. Osseous structures are grossly intact. CONCLUSION: Several prominent loops of colon in the right lower quadrant adjacent to the ostomy, containing hyper dense stool. This suggests constipation. No dilated loops of small bowel however. There is also an increase in the size of a left inguinal hernia contains a loop of small bowel and there is an increa sed amount of free fluid seen in the inguinal hernia and tracking along loops of small bowel in the l ower left abdomen. Hiatus hernia is also increased in size. Wilian Lopez MD on November 09, 2016 at 20:26 Board Certified Radiologist. This report was verified electronically.
[2016-11-09 21:59] VITALS: BP 162/83; PULSE 87; RESP 18; O2SAT 100
[2016-11-09] MEDS ORDERED: DEXTROSE 50% IN WATER 50 ML VIAL(D50) IV PRN (22:00)
[2016-11-09] MEDS ORDERED: SENNOSIDES 8.6 MG TAB PO PRN (22:00)
[2016-11-09] MEDS ORDERED: ONDANSETRON HCL 4 MG/2 ML VIAL IVP PRN (22:00)
[2016-11-09] MEDS ORDERED: BISACODYL 10 MG SUPP RECTAL PRN (22:00)
[2016-11-09] MEDS ORDERED: GLUCAGON 1 MG/ML VIAL OTHER PRN (22:00)
[2016-11-09] MEDS ORDERED: NALOXONE HCL 0.4 MG/ML AMP IV PRN (22:00)
[2016-11-09] MEDS ORDERED: MAGNESIUM HYDROXIDE SUSP 30 ML CUP PO PRN (22:00)
[2016-11-09] MEDS ORDERED: LACTULOSE SYRUP 20 GM/30 ML CUP PO PRN (22:00)
[2016-11-09] MEDS ORDERED: METOCLOPRAMIDE HCL 10 MG/2 ML VIAL IV PUSH PRN (22:45)
[2016-11-09 22:53] VITALS: TEMP 99.4
--- NOTE | 2016-11-09 23:42 | HHI.HP ---
[facility] Service [facility] Primary Care Physician [facility] Admission Diagnosis nausea and vomiting Diagnoses: Chief Complaint: nausea, vomiting and abdomial pain Travel History International Travel<30 Days: No Contact w/Intl Traveler <30 Da: No Traveled to Known Affected Are: No Sepsis Criteria SIRS Criteria (2 or more): RR > 20 or PaCO2 < 32, WBC > 95156, < 4000 or > 10 % bands Sepsis Criteria (SIRS+source): Infect source susp/known History of Present Illness Written by BOOGIE Dodson acting as scribe for [Gomez] on 11/09/16 at 23: 40. 56 y/o male with a history of ESRD, DM, AK, CHF, neuropathy presented to the ED with complaints of dyspnea, abdominal pain, nausea and vomiting. Patient states he was at dialysis and he started to feel bad, 10 mins after arriving home he began to have nausea and vomiting, and then became sob. He states he has vomiting about 30 times. Denies any blood in emesis. He also complains of abdominal pain across his abdomen, but denies any constipation, states last BM was yesterday with no change in color or form. During examination he is very sob , nauseated and having dry heaves. He denies any chest pain or fevers, but he is very cold. Most recent surgery was a LAV fistula placed on October 20, 2016. Review of Systems Constitutional: DENIES: Fever, Chills Respiratory: COMPLAINS OF: Shortness of breath, DENIES: Cough Cardiovascular: DENIES: Chest pain, Lower Extremity Edema Gastrointestinal: COMPLAINS OF: Nausea, Vomiting, DENIES: Black stools, Bloody stools, Constipation, Diarrhea Genitourinary: DENIES: Hematuria, Dysuria Musculoskeletal: DENIES: Back pain, Neck pain Integumentary: DENIES: Rash Hematologic/lymphatic: DENIES: Lymphadenopathy Immunologic/allergic: DENIES: Urticaria Past Family Social History Past Medical History HTN DM AK with stents ESRD Perforated bowel CHF Neuropathy Past Surgical History AV fistula 10/2016 Right great toe amputation Colostomy Reported Medications Reported Meds & Active Scripts Active Protonix (Pantoprazole Sodium) 40 Mg Tab 40 Mg PO BID Reported Lyrica (Pregabalin) 75 Mg Cap 75 Mg PO BID Enalapril (Enalapril Maleate) 10 Mg Tab 10 Mg PO DAILY Norvasc (Amlodipine Besylate) 10 Mg Tab 10 Mg PO DAILY Buspirone (Buspirone HCl) 10 Mg Tab 10 Mg PO BID Metoprolol Tartrate 50 Mg Tab 50 Mg PO BID Allergies: Coded Allergies: No Known Allergies (Unverified , 11/09/16) Active Ordered Medications Current Medications Medications (Trade) Dose Ordered Sig/Hallie Route Start Time Stop Time Status Last Admin (NS Flush) 2 ml UNSCH PRN IV FLUSH 11/09/16 22:00 (NS Flush) 2 ml BID IV FLUSH 11/10/16 09:00 (Zofran Inj) 4 mg Q6H PRN IVP 11/09/16 22:00 (Narcan Inj) 0.4 mg UNSCH PRN IV 11/09/16 22:00 (Kanwal-Colace) 1 tab BID PO 11/10/16 09:00 (Senokot) 17.2 mg Q12H PRN PO 11/09/16 22:00 (Dulcolax Supp) 10 mg DAILY PRN RECTAL 11/09/16 22:00 (Lactulose Liq) 30 ml DAILY PRN PO 11/09/16 22:00 (D50w (Vial) Inj) 50 ml UNSCH PRN IV 11/09/16 22:00 (Glucagon Inj) 1 mg UNSCH PRN OTHER 11/09/16 22:00 (Reglan Inj) 5 mg Q8H PRN IV PUSH 11/09/16 23:00 Family History Mom: leukemia Da: in car accident Social History Tobacco use: 1 PPD Alcohol use: Denies Illicit drug use: Denies Physical Exam Vital Signs Vital Signs Date Time Temp Pulse Resp B/P Pulse Ox O2 Delivery O2 Flow Rate FiO2 11/09/16 22:53 99.4 11/09/16 21:59 87 18 162/83 100 Room Air 11/09/16 18:21 73 20 189/85 100 Room Air 11/09/16 17:48 20 11/09/16 17:05 20 100 Room Air 11/09/16 16:30 97.7 78 24 205/88 100 Room Air Physical Exam GENERAL: This is a well-nourished, well-developed patient, in no apparent distress. SKIN: No rashes, ecchymoses or lesions. Cool and dry. HEAD: Atraumatic. Normocephalic. No temporal or scalp tenderness. EYES: Pupils equal round and reactive. Extraocular motions intact. No scleral icterus. No injection or drainage. ENT: Nose without bleeding, purulent drainage or septal hematoma. Throat without erythema, tonsillar hypertrophy or exudate. Uvula midline. Airway patent. NECK: Trachea midline. No JVD or lymphadenopathy. Supple, nontender, no meningeal signs. CARDIOVASCULAR: Regular rate and rhythm without murmurs, gallops, or rubs. RESPIRATORY: Clear to auscultation. Breath sounds equal bilaterally. No wheezes , rales, or rhonchi. GASTROINTESTINAL: Abdomen soft, non-tender, nondistended. No hepato-splenomegaly , or palpable masses. No guarding. MUSCULOSKELETAL: Extremities without clubbing, cyanosis, or edema. No joint tenderness, effusion, or edema noted. No calf tenderness. Negative Homans sign bilaterally. NEUROLOGICAL: Awake and alert. Cranial nerves II through XII intact. Motor and sensory grossly within normal limits. Five out of 5 muscle strength in all muscle groups. Normal speech. Laboratory Laboratory Tests Test 11/09/16 11/09/16 17:15 20:44 White Blood Count 15.1 Red Blood Count 4.17 Hemoglobin 11.8 Hematocrit 36.6 Mean Corpuscular Volume 87.7 Mean Corpuscular Hemoglobin 28.3 Mean Corpuscular Hemoglobin 32.3 Concent Red Cell Distribution Width 14.8 Platelet Count 208 Mean Platelet Volume 10.6 Neutrophils (%) (Auto) 91.0 Lymphocytes (%) (Auto) 4.8 Monocytes (%) (Auto) 3.8 Eosinophils (%) (Auto) 0.2 Basophils (%) (Auto) 0.2 Neutrophils # (Auto) 13.8 Lymphocytes # (Auto) 0.7 Monocytes # (Auto) 0.6 Eosinophils # (Auto) 0.0 Basophils # (Auto) 0.0 CBC Comment DIFF FINAL Differential Comment Prothrombin Time 11.2 Prothromb Time International 1.0 Ratio Activated Partial 23.4 Thromboplast Time D-Dimer Quantitative (PE/DVT) 3.23 Sodium Level 132 Potassium Level 3.6 Chloride Level 97 Carbon Dioxide Level 24.6 Anion Gap 10 Blood Urea Nitrogen 8 Creatinine 3.53 Estimat Glomerular Filtration 18 Rate Random Glucose 197 Lactic Acid Level 3.2 1.9 Calcium Level 9.2 Magnesium Level 1.8 Total Bilirubin 0.5 Aspartate Amino Transf 13 (AST/SGOT) Alanine Aminotransferase 12 (ALT/SGPT) Alkaline Phosphatase 96 Total Creatine Kinase 54 Troponin I LESS THAN 0.02 B-Type Natriuretic Peptide 820 Total Protein 7.8 Albumin 3.9 Lipase 132 Date/Time Procedure Status Source Growth 11/09/16 17:15 Aerobic Blood Culture Received Blood Peripheral Pending 11/09/16 17:15 Anaerobic Blood Culture Received Blood Peripheral Pending Result Diagram: 11/09/16 1715 11/09/16 1715 Imaging Last Impressions Abdomen/Pelvis CT 11/09/16 1837 Signed Impressions: Service Date/Time: , November 09, 2016 19:45 - CONCLUSION: Several prominent loops of colon in the right lower quadrant adjacent to the ostomy, containing hyperdense stool. This suggests constipation. No dilated loops of small bowel however. There is also an increase in the size of a left inguinal hernia contains a loop of small bowel and there is an increased amount of free fluid seen in the inguinal hernia and tracking along loops of small bowel in the lower left abdomen. Hiatus hernia is also increased in size. Wilian Lopez MD Chest X-Ray 11/09/16 1657 Signed Impressions: Service Date/Time: , November 09, 2016 17:10 - CONCLUSION: No acute disease. No significant change has occurred. Joselito Tong MD Assessment and Plan Problem List: (1) Nausea & vomiting ICD Code: R11.2 Status: Acute (2) Sepsis ICD Code: A41.9 Status: Acute (3) ESRD (end stage renal disease) on dialysis ICD Code: N18.6 Status: Chronic (4) HTN (hypertension) ICD Code: I10 Status: Chronic (5) DM (diabetes mellitus) ICD Code: E11.9 Status: Chronic Assessment and Plan 56 y/o male with a history of ESRD, DM, AK, CHF, neuropathy presented to the ED with complaints of dyspnea, abdominal pain, nausea and vomiting. Sepsis, suspect bacteremia possibly due to AV fistula and HD WBC 15.1, Lactic 3.2--resolved to 1.9 -IV antibiotics Vanco and zosyn -CBC in AM -Blood cultures pending -UA ordered Dyspnea r/o PE D dimer 3.23, troponin .02 -O2 as needed -VQ scan pending -Serial troponin and EKGs ordered Intractable nausea and vomiting x 1 day -Antiemetics PRN -Clear liquids Constipation/abdominal pain, patient states last BM was yesterday Abdominal CT reviewed shows -Lactulose PRN -Morphine IV for pain management ESRD on HD, patient had HD on 11/10/16, chronic -Consult nephrology for recommendations HTN, chronic -Resume home medications Vasotec, metoprolol, and norvasc DM, chronic -Accu checks with SSI DVT prophylaxis: SCDs This note was transcribed by scribe [Regina Barkley]. I, Dr. Uday Dyer personally performed the history, physical exam, and medical decision making; and confirmed the accuracy of the information in the transcribed note. Authenticated by Dr. Uday Dyer on 11/09/16 at 23:40. Discussed Condition With Patient, RN and ED physician Problem Qualifiers (1) Nausea & vomiting: Qualified Code: R11.2 - Non-intractable vomiting with nausea, unspecified vomiting type Regina Barkley Nov 09, 2016 23:42 Uday Dyer MD Nov 10, 2016 07:49
[2016-11-10] VITALS (12 sets, daily range): BP systolic 102–195; BP diastolic 58–99; PULSE 60–99; RESP 16–23; TEMP 98.6–99.5; O2SAT 97–100
[2016-11-10] MEDS ORDERED: PIPERACIL-TAZO 4.5 GM PREMIX 100 ML IV SCH
[2016-11-10] MEDS ORDERED: ENALAPRILAT 2.5 MG/2 ML VIAL IV PUSH PRN
[2016-11-10] MEDS ORDERED: Vancomycin Consult Pharmacy 1 EA OTHER SCH
[2016-11-10] MEDS: MORPHINE SULFATE 8 MG/ML INJ IV PUSH PRN ×3 (00:24→06:51)
[2016-11-10] MEDS: METOCLOPRAMIDE HCL 10 MG/2 ML VIAL IV PUSH PRN ×2 (00:24→08:46)
[2016-11-10] MEDS: PIPERACIL-TAZO 3.375 GM PREMIX 50 ML IV SCH ×5 (00:24→23:47)
[2016-11-10 00:49] LABS: BACTERIA, URINE RARE /hpf; BLOOD, URINE TRACE (NEG); COMMENT (UR) CULT NOT INDICATED; CULTURE IF INDICATED CULT NOT INDICATED; GLUCOSE,URINE 70 mg/dL (NEG); HYALINE CAST, URINE 1 /lpf (RARE); KETONE, URINE NEG (NEG); NITRITE,URINE NEG (NEG); URINE COLOR YELLOW (YELLW/STRAW)
[2016-11-10] MEDS: CIPROFLOXACIN 400 MG PREMIX 200 ML IV SCH (01:15)
[2016-11-10] MEDS ORDERED: VANCOMYCIN 1,000 MG/NS 250 ML IV SCH ×2 (03:00)
[2016-11-10] MEDS: SODIUM CHLORIDE 0.9% FLUSH 10 ML FLUSH IV FLUSH PRN (03:51)
[2016-11-10] MEDS: INSULIN ASPART SUPPLEMENTAL SCALE SQ SCH ×4 (06:17→21:00)
[2016-11-10] MEDS: DOCUSATE SODIUM 50 MG/SENNA 8.6 MG TAB PO SCH ×2 (08:45→20:56)
[2016-11-10] MEDS: ENALAPRIL MALEATE 10 MG TAB PO SCH (08:45)
[2016-11-10] MEDS: SODIUM CHLORIDE 0.9% FLUSH 10 ML FLUSH IV FLUSH SCH ×2 (08:45→20:55)
[2016-11-10] MEDS: PANTOPRAZOLE SOD 40 MG DELAYED RELEASE TAB PO SCH ×2 (08:45→20:55)
[2016-11-10] MEDS: PREGABALIN 75 MG CAP PO SCH ×2 (08:45→20:59)
[2016-11-10] MEDS: METOPROLOL TARTRATE 50 MG TAB PO SCH ×2 (08:45→21:00)
[2016-11-10] MEDS: busPIRone HCL 10 MG TAB PO SCH ×2 (09:00→20:59)
--- NOTE | 2016-11-10 10:00 | HHI.PR ---
Subjective Remarks Follow-up sepsis 11/10/16-patient seen and examined, afebrile and denies any nausea of vomiting since admissions patient has a permacath placed 1 month. His AV fistula is 2 weeks matured. Patient denies any significant increase in ostomy output prior to admission Objective Vitals Vital Signs Date Time Temp Pulse Resp B/P Pulse Ox O2 Delivery O2 Flow Rate FiO2 11/10/16 08:06 98.9 93 18 164/83 100 11/10/16 04:20 95 11/10/16 04:00 Room Air 11/10/16 03:30 98.8 94 18 174/88 100 11/10/16 03:21 95 18 179/85 100 Room Air 11/10/16 03:10 99 23 195/92 100 Room Air 11/10/16 03:08 18 11/10/16 00:25 99.5 90 18 187/99 100 Room Air 11/09/16 22:53 99.4 11/09/16 21:59 87 18 162/83 100 Room Air 11/09/16 18:21 73 20 189/85 100 Room Air 11/09/16 17:48 20 11/09/16 17:05 20 100 Room Air 11/09/16 16:30 97.7 78 24 205/88 100 Room Air I/O 11/09/16 11/09/16 11/09/16 11/10/16 11/10/16 11/10/16 07:00 15:00 23:00 07:00 15:00 23:00 Intake Total 253 ml Balance 253 ml Intake IV Total 253 ml Result Diagram: 11/09/16 1715 11/09/16 1715 Imaging Last Impressions Abdomen/Pelvis CT 11/09/16 1837 Signed Impressions: Service Date/Time: November 19:45 - CONCLUSION: Several prominent loops of colon in the right lower quadrant adjacent to the ostomy, containing hyperdense stool. This suggests constipation. No dilated loops of small bowel however. There is also an increase in the size of a left inguinal hernia contains a loop of small bowel and there is an increased amount of free fluid seen in the inguinal hernia and tracking along loops of small bowel in the lower left abdomen. Hiatus hernia is also increased in size. Wilian Lopez MD Chest X-Ray 11/09/16 1657 Signed Impressions: Service Date/Time: November 17:10 - CONCLUSION: No acute disease. No significant change has occurred. Joselito Tong MD Objective Remarks GENERAL: NAD SKIN: Warm and dry. HEAD: Normocephalic. EYES: No scleral icterus. No injection or drainage. NECK: Supple, trachea midline. No JVD or lymphadenopathy. Left permacath in place without any surrounding erythema or redness CARDIOVASCULAR: Regular rate and rhythm without murmurs, gallops, or rubs. RESPIRATORY: Breath sounds equal bilaterally. No accessory muscle use. GASTROINTESTINAL: Abdomen soft, non-tender, nondistended. Ostomy by with normal stool MUSCULOSKELETAL: No cyanosis, or edema. BACK: Nontender without obvious deformity. No CVA tenderness. A/P Problem List: (1) Nausea & vomiting ICD Code: R11.2 Status: Acute (2) Sepsis ICD Code: A41.9 Status: Acute (3) ESRD (end stage renal disease) on dialysis ICD Code: N18.6 Status: Chronic (4) HTN (hypertension) ICD Code: I10 Status: Chronic (5) DM (diabetes mellitus) ICD Code: E11.9 Status: Chronic Assessment and Plan 56-year-old man with Sepsis Patient admitted with presumed sepsis with unknown source History of end-stage renal disease with left Permcath in place, ostomy with normal stool -Will consult infectious disease at this time -IV antibiotics Vanco and zosyn -Culture report pending Dyspnea r/o PE D dimer 3.23, troponin .02 -O2 as needed -VQ scan pending Intractable nausea and vomiting-resolved -Antiemetics PRN -Advance diet as tolerated Constipation/abdominal pain Abdominal CT reviewed shows -Resolved and continue Lactulose PRN ESRD on HD, patient had HD on 11/10/16, chronic -Consult nephrology for recommendations HTN, chronic -Continue home medications Vasotec, metoprolol, and Norvasc DM, chronic -Accu checks with SSI DVT prophylaxis: SCDs Problem Qualifiers (1) Nausea & vomiting: Qualified Code: R11.2 - Non-intractable vomiting with nausea, unspecified vomiting type Dallas Taylor MD Nov 10, 2016 10:00
[2016-11-10 10:06] LABS: AUTOMATED NEUTROPHIL # 10.8 TH/MM3 (1.8-7.7); HEMATOCRIT 35.1 % (39.0-51.0); HEMO FLAGS DIFF FINAL; LYMPH % 5.6 % (9.0-44.0); LYMPHOCYTE # 0.7 TH/MM3 (1.0-4.8); MEAN CELL VOLUME 86.5 FL (80.0-100.0); MEAN CORPUSCULAR HEMOGLOBIN 28.7 PG (27.0-34.0); MEAN CORPUSCULAR HGB CONC 33.2 % (32.0-36.0); MONO % 7.3 % (0.0-8.0); NEUT % 87.1 % (16.0-70.0); PLATELET COUNT 233 TH/MM3 (150-450); RED BLOOD COUNT 4.06 MIL/MM3 (4.50-5.90); RED CELL DISTRIBUTION WIDTH 14.7 % (11.6-17.2); WHITE BLOOD COUNT 12.5 TH/MM3 (4.0-11.0)
[2016-11-10 10:27] LABS: BICARBONATE 23.6 MEQ/L (21.0-32.0); POTASSIUM 3.7 MEQ/L (3.5-5.1)
--- NOTE | 2016-11-10 12:28 | PD.ID.CON ---
History of Present Illness Service ID Consult Requested By Dr Taylor Reason for Consult sepsis Primary Care Physician [facility] Diagnoses: History of Present Illness Pateint is a poor historian, histoery from the chart 56-year-old male with a history of end-stage renal disease, diabetes mellitus, congestive heart failure as well as atherosclerotic disease was has a history of recurrent admissions for diabetic gastroparesis. 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 He is still having vomiting He has CT that showed constipation Presently has a hemodialysis PermCath in place pending maturity of a right AV dialysis fistula. Patient denying fever or chills. No fever documented Presented with leukocytosis of 15 K WBC, improved down to 12 K over 24 hrs Blood cultures negative 24 hours Review of Systems ROS Limitations: Poor Historian Past Family Social History Allergies: Coded Allergies: No Known Allergies (Unverified , 11/09/16) Past Medical History hypertension [place] 2003 CAD s/p stent x 1 CHF diabetes mellitus Gangrenous colon with resection, colostomy. Gastroparesis. PVD Past Surgical History Colostomy Right big toe amputated Right leg fem-pop bypass, tolowa dee-ni' vein, patch by Dr Nguyễn in 12/2015 Stent - cardiac x 1 Active Ordered Medications Medications where reviewed in EMR Antibiotics Include: zosyn, vancomycin Family History Non-Contributory. Social History + 1/2 ppd Tobacco. No ETOH. No Illicit Drugs. Physical Exam Vital Signs Vital Signs Date Time Temp Pulse Resp B/P Pulse Ox O2 Delivery O2 Flow Rate FiO2 11/10/16 08:55 85 11/10/16 08:55 Room Air 11/10/16 08:06 98.9 93 18 164/83 100 11/10/16 04:20 95 11/10/16 04:00 Room Air 11/10/16 03:30 98.8 94 18 174/88 100 11/10/16 03:21 95 18 179/85 100 Room Air 11/10/16 03:10 99 23 195/92 100 Room Air 11/10/16 03:08 18 11/10/16 00:25 99.5 90 18 187/99 100 Room Air 11/09/16 22:53 99.4 11/09/16 21:59 87 18 162/83 100 Room Air 11/09/16 18:21 73 20 189/85 100 Room Air 11/09/16 17:48 20 11/09/16 17:05 20 100 Room Air 11/09/16 16:30 97.7 78 24 205/88 100 Room Air Physical Exam CONSTITUTIONAL/GENERAL: This is an adequately nourished patient, in no apparent distress. TUBES/LINES/DRAINS: Permacath in place L chest w/o e/o infx SKIN: No jaundice, rashes, or lesions. Skin temperature appropriate. Not diaphoretic. HEAD: Atraumatic. Normocephalic. EYES: Pupils equal and round and reactive. Extraocular motions intact. No scleral icterus. No injection or drainage. Fundi not examined. ENT: Hearing grossly normal. Nose without bleeding or purulent drainage. oral mucosae without visible erythema, exudates, masses, or lesions. NECK: Trachea midline. Supple, nontender. CARDIOVASCULAR: Regular rate and rhythm without murmurs, gallops, or rubs. No JVD. Peripheral pulses symmetric. RESPIRATORY/CHEST: Symmetric, unlabored respirations. Clear to auscultation. Breath sounds equal bilaterally. No wheezes, rales, or rhonchi. GASTROINTESTINAL: Abdomen soft, non-tender, nondistended. Stoma in place with liquid light brown stool in the bag No hepato-splenomegaly, or palpable masses. No guarding. Bowel sounds present. GENITOURINARY: Without palpable bladder distension. MUSCULOSKELETAL: Extremities without clubbing, cyanosis, or edema. No joint tenderness or effusion noted. No calf tenderness. No mottling or clubbing. Well healed 1st ray amputaion on R foot Scars cw [periferal bypass LYMPHATICS: No palpable cervical or supraclavicular adenopathy. NEUROLOGICAL: Awake and alert. Motor and sensory grossly within normal limits. Follows commands. Clear speech . Moves all extremities. PSYCHIATRIC: No obvious anxiety/depression. no apparent hallucinations or other psychotic thought process. Laboratory Laboratory Tests Test 11/09/16 11/09/16 11/10/16 11/10/16 17:15 20:44 00:25 00:27 White Blood Count 15.1 Red Blood Count 4.17 Hemoglobin 11.8 Hematocrit 36.6 Mean Corpuscular Volume 87.7 Mean Corpuscular Hemoglobin 28.3 Mean Corpuscular Hemoglobin 32.3 Concent Red Cell Distribution Width 14.8 Platelet Count 208 Mean Platelet Volume 10.6 Neutrophils (%) (Auto) 91.0 Lymphocytes (%) (Auto) 4.8 Monocytes (%) (Auto) 3.8 Eosinophils (%) (Auto) 0.2 Basophils (%) (Auto) 0.2 Neutrophils # (Auto) 13.8 Lymphocytes # (Auto) 0.7 Monocytes # (Auto) 0.6 Eosinophils # (Auto) 0.0 Basophils # (Auto) 0.0 CBC Comment DIFF FINAL Differential Comment Prothrombin Time 11.2 Prothromb Time International 1.0 Ratio Activated Partial 23.4 Thromboplast Time D-Dimer Quantitative (PE/DVT) 3.23 Sodium Level 132 Potassium Level 3.6 Chloride Level 97 Carbon Dioxide Level 24.6 Anion Gap 10 Blood Urea Nitrogen 8 Creatinine 3.53 Estimat Glomerular Filtration 18 Rate Random Glucose 197 Lactic Acid Level 3.2 1.9 Calcium Level 9.2 Magnesium Level 1.8 Total Bilirubin 0.5 Aspartate Amino Transf 13 (AST/SGOT) Alanine Aminotransferase 12 (ALT/SGPT) Alkaline Phosphatase 96 Total Creatine Kinase 54 45 Troponin I LESS THAN 0.02 0.02 B-Type Natriuretic Peptide 820 Total Protein 7.8 Albumin 3.9 Lipase 132 Urine Color YELLOW Urine Turbidity CLEAR Urine pH 8.0 Urine Specific [place] 1.008 Urine Protein 30 Urine Glucose (UA) 70 Urine Ketones NEG Urine Occult Blood TRACE Urine Nitrite NEG Urine Bilirubin NEG Urine Urobilinogen LESS THAN 2.0 Urine Leukocyte Esterase TRACE Urine RBC 1 Urine WBC 4 Urine Bacteria RARE Urine Hyaline Casts 1 Microscopic Urinalysis Comment CULT NOT INDICATED Test 11/10/16 09:27 White Blood Count 12.5 Red Blood Count 4.06 Hemoglobin 11.7 Hematocrit 35.1 Mean Corpuscular Volume 86.5 Mean Corpuscular Hemoglobin 28.7 Mean Corpuscular Hemoglobin 33.2 Concent Red Cell Distribution Width 14.7 Platelet Count 233 Mean Platelet Volume 10.5 Neutrophils (%) (Auto) 87.1 Lymphocytes (%) (Auto) 5.6 Monocytes (%) (Auto) 7.3 Eosinophils (%) (Auto) 0.0 Basophils (%) (Auto) 0.0 Neutrophils # (Auto) 10.8 Lymphocytes # (Auto) 0.7 Monocytes # (Auto) 0.9 Eosinophils # (Auto) 0.0 Basophils # (Auto) 0.0 CBC Comment DIFF FINAL Differential Comment Sodium Level 137 Potassium Level 3.7 Chloride Level 101 Carbon Dioxide Level 23.6 Anion Gap 12 Blood Urea Nitrogen 22 Creatinine 5.02 Estimat Glomerular Filtration 12 Rate Random Glucose 162 Calcium Level 9.6 Total Creatine Kinase 42 Troponin I 0.18 Date/Time Procedure Status Source Growth 11/09/16 17:15 Aerobic Blood Culture - Preliminary Resulted Blood Peripheral NO GROWTH IN 1 DAY 11/09/16 17:15 Anaerobic Blood Culture - Preliminary Resulted Blood Peripheral NO GROWTH IN 1 DAY Result Diagram: 11/10/16 0927 11/10/16 0927 Imaging Last Impressions Abdomen/Pelvis CT 11/09/16 1837 Signed Impressions: Service Date/Time: November 19:45 - CONCLUSION: Several prominent loops of colon in the right lower quadrant adjacent to the ostomy, containing hyperdense stool. This suggests constipation. No dilated loops of small bowel however. There is also an increase in the size of a left inguinal hernia contains a loop of small bowel and there is an increased amount of free fluid seen in the inguinal hernia and tracking along loops of small bowel in the lower left abdomen. Hiatus hernia is also increased in size. Wilian Lopez MD Chest X-Ray 11/09/16 1657 Signed Impressions: Service Date/Time: November 17:10 - CONCLUSION: No acute disease. No significant change has occurred. Joselito Tong MD Assessment and Plan Assessment and Plan Suspected sepsis on presentation - source could be CLABSI vs intraabd, however no acute findings were seen on CT Nausea, vomiting ESRD Diabetic gastroparesis - cont broad spectrum abx for now - will deescalate or d/c abx per clx - fu WBC - fu clincially Missy Bauman MD Nov 10, 2016 12:28
--- NOTE | 2016-11-10 13:34 | EKG ---
Date Performed: 11/10/2016 Time Performed: 00:59:10 PTAGE: 56 years EKG: Sinus rhythm PROLONGED QT INTERVAL ABNORMAL ECG Compared to prior tracing no significant change PREVIOUS TRACING : 11/09/2016 17.11 DOCTOR: James Sebastian Interpretating Date/Time 11/10/2016 13:31:25
--- NOTE | 2016-11-10 13:34 | EKG ---
Date Performed: 11/09/2016 Time Performed: 17:11:31 PTAGE: 56 years EKG: Sinus rhythm MODERATE VOLTAGE CRITERIA FOR LVH, CONSIDER NORMAL VARIANT BORDERLINE ECG Compared to prior tracing no significant change PREVIOUS TRACING : 09/18/2016 13.07 DOCTOR: James Sebastian Interpretating Date/Time 11/10/2016 13:31:34
--- NOTE | 2016-11-10 13:34 | EKG ---
Date Performed: 11/10/2016 Time Performed: 06:29:08 PTAGE: 56 years EKG: Sinus tachycardia Lateral ST changes are nonspecific Borderline ECG Compared to prior jaclyn ng no significant change PREVIOUS TRACING : 11/10/2016 00.59 DOCTOR: James Sebastian Interpretating Date/Time 11/10/2016 13:31:12
--- NOTE | 2016-11-10 14:07 | PD.CONS ---
HPI Consult Requested By Reason for Consult End-stage renal disease Primary Care Physician [facility] History of Present Illness This patient is a 56-year-old male with a history of end-stage renal disease, diabetes mellitus, congestive heart failure as well as atherosclerotic disease was has a history of recurrent admissions for diabetic gastroparesis. Patient presented with a history of abdominal pain, nausea and vomiting. Presently has a hemodialysis PermCath in place pending maturity of a right AV dialysis fistula. Patient denying fever or chills. Blood cultures negative 24 hours at time of consultation. Review of Systems Constitutional: COMPLAINS OF: Fatigue, Change in appetite, DENIES: Diaphoretic episodes, Fever, Weight gain, Weight loss, Chills, Dizziness, Night Sweats Cardiovascular: DENIES: Chest pain, Palpitations, Syncope, Dyspnea on Exertion , PND, Lower Extremity Edema, Orthopnea, Claudication Gastrointestinal: COMPLAINS OF: Abdominal pain (improved at time of visit.), Vomiting, DENIES: Black stools, Bloody stools, Constipation, Diarrhea, Nausea, Difficulty Swallowing, Anorexia Musculoskeletal: COMPLAINS OF: Joint pain, DENIES: Muscle aches, Stiffness, Joint Swelling, Back pain, Neck pain Psychiatric: DENIES: Anxiety, Confusion, Mood changes Past Family Social History Allergies: Coded Allergies: No Known Allergies (Unverified , 11/09/16) Past Medical History End-stage renal disease Congestive heart failure Hypertension Secondary hyperparathyroidism renal disease Diabetes mellitus Peripheral arterial disease/peripheral vascular disease Anemia renal disease Hx of ischemic colitis requiring partial colectomy and colostomy Hx gangrene right great toe Gastritis/Esophagitis Atherosclerotic vascular disease Depression/Anxiety C Diff history Mitral regurgitation Secondary hyperparathyroidism secondary to Vitamin D Deficiency Gastroparesis Recent bacteremia--source RIJ PermCath Past Surgical History Bypass of the right leg. Amputation of the right big toe. Hemicolectomy/Colostomy. PCI status post stent 2 years ago after an [place]. Left av fistula Right tunneled subclavian dialysis catheter placement EGD Past Surgical History Bypass of the right leg. Amputation of the right big toe. Hemicolectomy/Colostomy. PCI status post stent 2 years ago after an [place]. Left av fistula Right tunneled subclavian dialysis catheter placement EGD Reported Medications Reported Meds & Active Scripts Active Protonix (Pantoprazole Sodium) 40 Mg Tab 40 Mg PO BID Reported Lyrica (Pregabalin) 75 Mg Cap 75 Mg PO BID Enalapril (Enalapril Maleate) 10 Mg Tab 10 Mg PO DAILY Norvasc (Amlodipine Besylate) 10 Mg Tab 10 Mg PO DAILY Buspirone (Buspirone HCl) 10 Mg Tab 10 Mg PO BID Metoprolol Tartrate 50 Mg Tab 50 Mg PO BID Active Ordered Medications Current Medications Sodium Chloride (NS Flush) 2 ml UNSCH PRN IVF FLUSH AFTER USING IV ACCESS; Start 11/09/16 at 17:00; Stop 11/09/16 at 21:58; Status DC Ondansetron HCl (Zofran Inj) 4 mg ONCE ONCE IVP Last administered on 11/09/16 17:25; Start 11/09/16 at 17:00; Stop 11/09/16 at 17:01; Status DC Sodium Chloride (NS Flush) 2 ml UNSCH PRN IV FLUSH FLUSH AFTER USING IV ACCESS ; Start 11/09/16 at 17:00; Stop 11/09/16 at 21:58; Status DC Morphine Sulfate (Morphine Inj) 2 mg ONCE ONCE IV PUSH Last administered on 17:43; Start 11/09/16 at 17:30; Stop 11/09/16 at 17:31; Status DC Prochlorperazine Edisylate (Compazine Inj) 5 mg ONCE ONCE IV PUSH Last administered on 11/09/16 17:43; Start 11/09/16 at 17:30; Stop 11/09/16 at 17:31; Status DC Ondansetron HCl (Zofran Inj) 4 mg ONCE ONCE IV PUSH Last administered on 20:21; Start 11/09/16 at 20:00; Stop 11/09/16 at 20:01; Status DC Sodium Chloride (NS Flush) 2 ml UNSCH PRN IV FLUSH FLUSH AFTER USING IV ACCESS Last administered on 11/10/16 03:51; Start 11/09/16 at 22:00 Sodium Chloride (NS Flush) 2 ml BID IV FLUSH Last administered on 11/10/16 08: 45; Start 11/10/16 at 09:00 Ondansetron HCl (Zofran Inj) 4 mg Q6H PRN IVP NAUSEA OR VOMITING Last administered on 11/10/16 03:47; Start 11/09/16 at 22:00 Naloxone HCl (Narcan Inj) 0.4 mg UNSCH PRN IV SEE LABEL COMMENTS; Start at 22:00 Senna/Docusate Sodium (Kanwal-Colace) 1 tab BID PO Last administered on 11/10/16 08:45; Start 11/10/16 at 09:00 Magnesium Hydroxide (Milk Of Magnesia Liq) 30 ml Q12H PRN PO MILD - MODERATE CONSTIPATION; Start 11/09/16 at 22:00; Stop 11/09/16 at 22:46; Status DC Sennosides (Senokot) 17.2 mg Q12H PRN PO MODERATE - SEVERE CONSTIPATION Last administered on 11/10/16 01:00; Start 11/09/16 at 22:00 Bisacodyl (Dulcolax Supp) 10 mg DAILY PRN RECTAL SEVERE CONSITIPATION; Start at 22:00 Lactulose (Lactulose Liq) 30 ml DAILY PRN PO SEVERE CONSITIPATION Last administered on 11/10/16 01:00; Start 11/09/16 at 22:00 Dextrose (D50w (Vial) Inj) 50 ml UNSCH PRN IV HYPOGLYCEMIA-SEE COMMENTS; Start 11/09/16 at 22:00 Glucagon (Glucagon Inj) 1 mg UNSCH PRN OTHER HYPOGLYCEMIA-SEE COMMENTS; Start 11/09/16 at 22:00 Insulin Aspart (NovoLOG SUPPLEMENTAL SCALE) 1 ACHS SLIDING SCALE SQ ; Start 11/10/16 at 07:00 Metoclopramide HCl (Reglan Inj) 10 mg Q8H PRN IV PUSH nausea NOT CONTROLED BY ZOFRAN; Start 11/09/16 at 22:45; Stop 11/09/16 at 22:49; Status DC Metoclopramide HCl (Reglan Inj) 5 mg Q8H PRN IV PUSH nausea NOT CONTROLED BY ZOFRAN Last administered on 11/10/16 08:46; Start 11/09/16 at 23:00 Morphine Sulfate 2 mg 2 mg Q3H PRN IV PUSH pain>5 Last administered on 06:51; Start 11/10/16 at 00:00 Pharmacy Profile Note 0 ml @ 0 mls/hr UNSCH OTHER ; Start 11/10/16 at 00:00 Piperacillin Sod/ Tazobactam Sod 100 ml @ 200 mls/hr Q6H IV ; Start 11/10/16 at 00:00; Stop 11/10/16 at 00:00; Status DC Ciprofloxacin/ Dextrose (Cipro 400 Mg Premix) 200 ml @ 200 mls/hr Q24H IV Last administered on 11/10/16 01:15; Start 11/10/16 at 01:00 Amlodipine Besylate (Norvasc) 10 mg DAILY PO Last administered on 11/10/16 08: 45; Start 11/10/16 at 09:00 Buspirone HCl (Buspar) 10 mg BID PO ; Start 11/10/16 at 09:00 Enalapril Maleate (Vasotec) 10 mg DAILY PO Last administered on 11/10/16 08:45 ; Start 11/10/16 at 09:00 Metoprolol Tartrate (Lopressor) 50 mg BID PO Last administered on 11/10/16 08: 45; Start 11/10/16 at 09:00 Pantoprazole Sodium (Protonix) 40 mg BID PO Last administered on 11/10/16 08:45 ; Start 11/10/16 at 09:00 Pregabalin (Lyrica) 75 mg BID PO Last administered on 11/10/16 08:45; Start 11/10/16 at 09:00 Enalaprilat 2.5 mg 2.5 mg Q6H PRN IV PUSH bp>160/90 Last administered on 03:09; Start 11/10/16 at 00:00 Piperacillin Sod/ Tazobactam Sod 50 ml @ 200 mls/hr Q6H IV Last administered on 11/10/16 12:07; Start 11/10/16 at 00:00 Vancomycin HCl/ Sodium Chloride (Vancomycin Inj/ NS 250 ml Inj) 250 ml @ 250 mls/hr DAILY@03 IV Last administered on 11/10/16 03:09; Start 11/10/16 at 03:00 ; Stop 11/10/16 at 07:00; Status DC Family History Noncontributory to current complaint Social History Patient has a history of some medical noncompliance with dialysis but improved recently. Also has a history of leaving hospital AGAINST MEDICAL ADVICE. Patient advised patient physician relationship would have to be reevaluated if this continues. Physical Exam Vital Signs Vital Signs Date Time Temp Pulse Resp B/P Pulse Ox O2 Delivery O2 Flow Rate FiO2 11/10/16 08:55 85 11/10/16 08:55 Room Air 11/10/16 08:06 98.9 93 18 164/83 100 11/10/16 04:20 95 11/10/16 04:00 Room Air 11/10/16 03:30 98.8 94 18 174/88 100 11/10/16 03:21 95 18 179/85 100 Room Air 11/10/16 03:10 99 23 195/92 100 Room Air 11/10/16 03:08 18 11/10/16 00:25 99.5 90 18 187/99 100 Room Air 11/09/16 22:53 99.4 11/09/16 21:59 87 18 162/83 100 Room Air 11/09/16 18:21 73 20 189/85 100 Room Air 11/09/16 17:48 20 11/09/16 17:05 20 100 Room Air 11/09/16 16:30 97.7 78 24 205/88 100 Room Air Physical Exam GENERAL: male who appears somewhat older than his stated age. Somewhat thin. Not in respiratory distress. SKIN: Warm and dry. HEAD: Normocephalic. EYES: No scleral icterus. No injection or drainage. NECK: Supple, trachea midline. No JVD or lymphadenopathy. CARDIOVASCULAR: Regular rate and rhythm without murmurs, gallops, or rubs. RESPIRATORY: Breath sounds equal bilaterally. No accessory muscle use. GASTROINTESTINAL: Abdomen soft, non-tender, nondistended at current time. MUSCULOSKELETAL: No cyanosis, or edema. AV dialysis fistula present in left arm which appears to be developing quite well. Hemodialysis PermCath site clean and dry dressing intact. BACK: Nontender without obvious deformity. No CVA tenderness. Laboratory Laboratory Tests Test 11/09/16 11/09/16 11/10/16 11/10/16 17:15 20:44 00:25 00:27 White Blood Count 15.1 Red Blood Count 4.17 Hemoglobin 11.8 Hematocrit 36.6 Mean Corpuscular Volume 87.7 Mean Corpuscular Hemoglobin 28.3 Mean Corpuscular Hemoglobin 32.3 Concent Red Cell Distribution Width 14.8 Platelet Count 208 Mean Platelet Volume 10.6 Neutrophils (%) (Auto) 91.0 Lymphocytes (%) (Auto) 4.8 Monocytes (%) (Auto) 3.8 Eosinophils (%) (Auto) 0.2 Basophils (%) (Auto) 0.2 Neutrophils # (Auto) 13.8 Lymphocytes # (Auto) 0.7 Monocytes # (Auto) 0.6 Eosinophils # (Auto) 0.0 Basophils # (Auto) 0.0 CBC Comment DIFF FINAL Differential Comment Prothrombin Time 11.2 Prothromb Time International 1.0 Ratio Activated Partial 23.4 Thromboplast Time D-Dimer Quantitative (PE/DVT) 3.23 Sodium Level 132 Potassium Level 3.6 Chloride Level 97 Carbon Dioxide Level 24.6 Anion Gap 10 Blood Urea Nitrogen 8 Creatinine 3.53 Estimat Glomerular Filtration 18 Rate Random Glucose 197 Lactic Acid Level 3.2 1.9 Calcium Level 9.2 Magnesium Level 1.8 Total Bilirubin 0.5 Aspartate Amino Transf 13 (AST/SGOT) Alanine Aminotransferase 12 (ALT/SGPT) Alkaline Phosphatase 96 Total Creatine Kinase 54 45 Troponin I LESS THAN 0.02 0.02 B-Type Natriuretic Peptide 820 Total Protein 7.8 Albumin 3.9 Lipase 132 Urine Color YELLOW Urine Turbidity CLEAR Urine pH 8.0 Urine Specific [place] 1.008 Urine Protein 30 Urine Glucose (UA) 70 Urine Ketones NEG Urine Occult Blood TRACE Urine Nitrite NEG Urine Bilirubin NEG Urine Urobilinogen LESS THAN 2.0 Urine Leukocyte Esterase TRACE Urine RBC 1 Urine WBC 4 Urine Bacteria RARE Urine Hyaline Casts 1 Microscopic Urinalysis Comment CULT NOT INDICATED Test 11/10/16 09:27 White Blood Count 12.5 Red Blood Count 4.06 Hemoglobin 11.7 Hematocrit 35.1 Mean Corpuscular Volume 86.5 Mean Corpuscular Hemoglobin 28.7 Mean Corpuscular Hemoglobin 33.2 Concent Red Cell Distribution Width 14.7 Platelet Count 233 Mean Platelet Volume 10.5 Neutrophils (%) (Auto) 87.1 Lymphocytes (%) (Auto) 5.6 Monocytes (%) (Auto) 7.3 Eosinophils (%) (Auto) 0.0 Basophils (%) (Auto) 0.0 Neutrophils # (Auto) 10.8 Lymphocytes # (Auto) 0.7 Monocytes # (Auto) 0.9 Eosinophils # (Auto) 0.0 Basophils # (Auto) 0.0 CBC Comment DIFF FINAL Differential Comment Sodium Level 137 Potassium Level 3.7 Chloride Level 101 Carbon Dioxide Level 23.6 Anion Gap 12 Blood Urea Nitrogen 22 Creatinine 5.02 Estimat Glomerular Filtration 12 Rate Random Glucose 162 Calcium Level 9.6 Total Creatine Kinase 42 Troponin I 0.18 Date/Time Procedure Status Source Growth 11/09/16 17:15 Aerobic Blood Culture - Preliminary Resulted Blood Peripheral NO GROWTH IN 1 DAY 11/09/16 17:15 Anaerobic Blood Culture - Preliminary Resulted Blood Peripheral NO GROWTH IN 1 DAY Result Diagram: 11/10/16 0927 11/10/16 0927 Imaging Last 48 hours Impressions Abdomen/Pelvis CT 11/09/16 1837 Signed Impressions: Service Date/Time: , November 09, 2016 19:45 - CONCLUSION: Several prominent loops of colon in the right lower quadrant adjacent to the ostomy, containing hyperdense stool. This suggests constipation. No dilated loops of small bowel however. There is also an increase in the size of a left inguinal hernia contains a loop of small bowel and there is an increased amount of free fluid seen in the inguinal hernia and tracking along loops of small bowel in the lower left abdomen. Hiatus hernia is also increased in size. Wilian Lopez MD Chest X-Ray 11/09/16 1657 Signed Impressions: Service Date/Time: November 17:10 - CONCLUSION: No acute disease. No significant change has occurred. Joselito Tong MD Assessment and Plan Problem List: (1) ESRD (end stage renal disease) on dialysis Plan: Continue hemodialysis Sunday and Saturdays. Blood cultures negative 24 hours. Await final result however clinically the patient does not appear to be septic. Medication should be adjusted for his end-stage renal disease when indicated. Avoid gadolinium. (2) Nausea & vomiting Plan: Patient does have a history of severe diabetic gastroparesis. He has been seen by gastroenterology during previous admissions however I'm uncertain if the patient is ever followed up with them as an outpatient as he has been advised in the past. If GI symptoms continue suggest GI consultation. (3) CHF (congestive heart failure) Plan: Clinically compensated at this time. (4) HTN (hypertension) (5) Diabetes mellitus Plan: Management per primary care physician. Problem Qualifiers (1) Nausea & vomiting: Qualified Code: R11.2 - Non-intractable vomiting with nausea, unspecified vomiting type David Kennedy MD Nov 10, 2016 14:06
[2016-11-10] MEDS ORDERED: SODIUM CHLOR 0.9% 1000 ML INJ 1,000 ML IV PRN ×3 (14:23)
[2016-11-10] MEDS ORDERED: SODIUM CHLORIDE 0.9% FLUSH 10 ML FLUSH IV FLUSH PRN (14:30)
[2016-11-10] MEDS ORDERED: NITROGLYCERIN 0.4 MG SL 25 TABS/BTL SL PRN (14:30)
[2016-11-10] MEDS ORDERED: HEPARIN SODIUM - IV 10,000 UNITS/10 ML VIAL IVF PRN (14:30)
[2016-11-10] MEDS ORDERED: cloNIDine HCL 0.1 MG TAB PO PRN (14:30)
[2016-11-10] MEDS ORDERED: HEPARIN SODIUM - IV 10,000 UNITS/10 ML VIAL PRN (14:30)
[2016-11-10] MEDS ORDERED: GELATIN 12 MM/7 MM FOAM TOP PRN (14:30)
[2016-11-10] MEDS ORDERED: ACETAMINOPHEN 325 MG TAB PO PRN (14:30)
[2016-11-10] MEDS ORDERED: ONDANSETRON HCL 4 MG/2 ML VIAL IV PRN (14:30)
[2016-11-10] MEDS ORDERED: GENTAMICIN SULFATE (DIALYSIS USE ONLY) 20 MG/2 ML VIAL IV PRN (14:30)
[2016-11-10] MEDS ORDERED: ALBUMIN HUMAN 25% 25 GM/100 ML BAGP IV PRN (14:30)
[2016-11-10] MEDS ORDERED: diphenhydrAMINE HCL 25 MG CAP PO PRN (14:30)
[2016-11-10] MEDS ORDERED: MANNITOL 12.5 GM/50 ML VIAL IV PRN (14:30)
[2016-11-11] MEDS: CIPROFLOXACIN 400 MG PREMIX 200 ML IV SCH (01:46)
[2016-11-11] MEDS: MORPHINE SULFATE 8 MG/ML INJ IV PUSH PRN ×2 (01:49→20:37)
[2016-11-11] MEDS: SODIUM CHLORIDE 0.9% FLUSH 10 ML FLUSH IV FLUSH PRN (01:50)
[2016-11-11 03:48] VITALS: BP 105/59; PULSE 60; RESP 16; TEMP 98.5; O2SAT 99
[2016-11-11] MEDS: PIPERACIL-TAZO 3.375 GM PREMIX 50 ML IV SCH ×3 (05:08→20:15)
[2016-11-11] MEDS: INSULIN ASPART SUPPLEMENTAL SCALE SQ SCH ×4 (05:39→21:00)
[2016-11-11 08:00] VITALS: BP 102/56; PULSE 57; RESP 20; TEMP 98.4; O2SAT 97
[2016-11-11] MEDS: busPIRone HCL 10 MG TAB PO SCH ×2 (08:37→20:36)
[2016-11-11] MEDS: DOCUSATE SODIUM 50 MG/SENNA 8.6 MG TAB PO SCH ×2 (08:38→20:36)
[2016-11-11] MEDS: PANTOPRAZOLE SOD 40 MG DELAYED RELEASE TAB PO SCH ×2 (08:38→20:36)
[2016-11-11] MEDS: PREGABALIN 75 MG CAP PO SCH ×2 (08:38→20:36)
[2016-11-11] MEDS: METOPROLOL TARTRATE 50 MG TAB PO SCH ×2 (08:44→20:36)
[2016-11-11] MEDS: ENALAPRIL MALEATE 10 MG TAB PO SCH (08:45)
[2016-11-11] MEDS: SODIUM CHLORIDE 0.9% FLUSH 10 ML FLUSH IV FLUSH SCH ×2 (09:31→20:37)
--- NOTE | 2016-11-11 10:37 | HHI.PR ---
Subjective Remarks Follow-up sepsis 11/10/16-patient seen and examined, afebrile and denies any nausea of vomiting since admissions patient has a permacath placed 1 month. His AV fistula is 2 weeks matured. Patient denies any significant increase in ostomy output prior to admission 11/11/16-patient seen and examined, reports improvement of nausea and vomiting. Currently afebrile. No issues. Plan hemodialysis today Objective Vitals Vital Signs Date Time Temp Pulse Resp B/P Pulse Ox O2 Delivery O2 Flow Rate FiO2 11/11/16 09:58 20 11/11/16 08:00 98.4 57 20 102/56 97 11/11/16 03:48 98.5 60 16 105/59 99 11/10/16 23:05 98.7 61 16 102/58 99 11/10/16 20:00 Room Air 11/10/16 20:00 61 11/10/16 19:27 98.9 60 16 114/61 99 11/10/16 16:06 98.6 65 18 145/73 100 11/10/16 15:00 97 21 I/O 11/10/16 11/10/16 11/10/16 11/11/16 11/11/16 11/11/16 07:00 15:00 23:00 07:00 15:00 23:00 Intake Total 253 ml 280 ml 465 ml 351 ml Output Total 100 ml 0 ml Balance 253 ml 180 ml 465 ml 351 ml Intake Oral 280 ml 360 ml 60 ml IV Total 253 ml 105 ml 291 ml Output Urine Total 100 ml 0 ml # Voids 1 # Bowel Movements 0 0 0 Result Diagram: 11/10/1627 11/10/16926 Imaging Last Impressions Abdomen/Pelvis CT 11/09/167 Signed Impressions: Service Date/Time: November 19:45 - CONCLUSION: Several prominent loops of colon in the right lower quadrant adjacent to the ostomy, containing hyperdense stool. This suggests constipation. No dilated loops of small bowel however. There is also an increase in the size of a left inguinal hernia contains a loop of small bowel and there is an increased amount of free fluid seen in the inguinal hernia and tracking along loops of small bowel in the lower left abdomen. Hiatus hernia is also increased in size. Wilian Lopez MD Chest X-Ray 11/09/16 4807 Signed Impressions: Service Date/Time: November 17:10 - CONCLUSION: No acute disease. No significant change has occurred. Joselito Tong MD Objective Remarks GENERAL: NAD SKIN: Warm and dry. HEAD: Normocephalic. EYES: No scleral icterus. No injection or drainage. NECK: Supple, trachea midline. No JVD or lymphadenopathy. Left permacath in place without any surrounding erythema or redness CARDIOVASCULAR: Regular rate and rhythm without murmurs, gallops, or rubs. RESPIRATORY: Breath sounds equal bilaterally. No accessory muscle use. GASTROINTESTINAL: Abdomen soft, non-tender, nondistended. Ostomy by with normal stool MUSCULOSKELETAL: No cyanosis, or edema. BACK: Nontender without obvious deformity. No CVA tenderness. A/P Problem List: (1) Nausea & vomiting ICD Code: R11.2 Status: Acute (2) Sepsis ICD Code: A41.9 Status: Acute (3) ESRD (end stage renal disease) on dialysis ICD Code: N18.6 Status: Chronic (4) HTN (hypertension) ICD Code: I10 Status: Chronic (5) DM (diabetes mellitus) ICD Code: E11.9 Status: Chronic Assessment and Plan 56-year-old man with Sepsis-resolved Patient admitted with presumed sepsis with unknown source History of end-stage renal disease with left Permcath in place, ostomy with normal stool -Appreciate input from infectious disease -IV antibiotics Cipro and zosyn -Culture report preliminary negative therefore I did consider possible discontinuing all antibiotics Dyspnea r/o PE D dimer 3.23, troponin .02 -O2 as needed Intractable nausea and vomiting-resolved -Antiemetics PRN -Advance diet as tolerated Constipation/abdominal pain Abdominal CT reviewed shows -Resolved and continue Lactulose PRN ESRD on HD, patient had HD on 11/10/16, chronic -Appreciate input from nephrology -Plan for HD today HTN, chronic -Continue home medications Vasotec, metoprolol, and Norvasc DM, chronic -Accu checks with SSI DVT prophylaxis: SCDs Problem Qualifiers (1) Nausea & vomiting: Qualified Code: R11.2 - Non-intractable vomiting with nausea, unspecified vomiting type Dallas Taylor MD Nov 11, 2016 10:36
[2016-11-11 12:00] VITALS: BP 116/56; PULSE 58; RESP 20; TEMP 98.1; O2SAT 98
--- NOTE | 2016-11-11 16:26 | HHI.NPPN ---
Subjective History of Present Illness This patient is a 56-year-old male with a history of end-stage renal disease, diabetes mellitus, congestive heart failure as well as atherosclerotic disease was has a history of recurrent admissions for diabetic gastroparesis. Patient presented with a history of abdominal pain, nausea and vomiting. Presently has a hemodialysis PermCath in place pending maturity of a right AV dialysis fistula. Patient denied fever or chills. Interval History Patient was seen during hemodialysis. Hemodialysis catheter appears to be working well. No verbal complaints. Nausea and vomiting improved. Objective Data Data 11/10/16 11/11/16 19:00 07:00 Intake Total 385 ml 711 ml Output Total 100 ml 0 ml Balance 285 ml 711 ml Intake Oral 280 ml 420 ml IV Total 105 ml 291 ml Output Urine Total 100 ml 0 ml # Voids 1 # Bowel Movements 0 0 Vital Signs Date Time Temp Pulse Resp B/P Pulse Ox O2 Delivery O2 Flow Rate FiO2 11/11/16 12:00 98.1 58 20 116/56 98 11/11/16 11:00 97 Room Air 11/11/16 09:58 20 11/11/16 08:00 98.4 57 20 102/56 97 11/11/16 03:48 98.5 60 16 105/59 99 11/10/16 23:05 98.7 61 16 102/58 99 11/10/16 20:00 Room Air 11/10/16 20:00 61 11/10/16 19:27 98.9 60 16 114/61 99 -: 11/10/16 0927 11/10/16 0927 Tubes & Lines: Perma-Cath Medication Review Current Medications Sodium Chloride (NS Flush) 2 ml UNSCH PRN IVF FLUSH AFTER USING IV ACCESS; Start 11/09/16 at 17:00; Stop 11/09/16 at 21:58; Status DC Ondansetron HCl (Zofran Inj) 4 mg ONCE ONCE IVP Last administered on 11/09/16t 17:25; Start 11/09/16 at 17:00; Stop 11/09/16 at 17:01; Status DC Sodium Chloride (NS Flush) 2 ml UNSCH PRN IV FLUSH FLUSH AFTER USING IV ACCESS ; Start 11/09/16 at 17:00; Stop 11/09/16 at 21:58; Status DC Morphine Sulfate (Morphine Inj) 2 mg ONCE ONCE IV PUSH Last administered on 17:43; Start 11/09/16 at 17:30; Stop 11/09/16 at 17:31; Status DC Prochlorperazine Edisylate (Compazine Inj) 5 mg ONCE ONCE IV PUSH Last administered on 11/09/16 17:43; Start 11/09/16 at 17:30; Stop 11/09/16 at 17:31; Status DC Ondansetron HCl (Zofran Inj) 4 mg ONCE ONCE IV PUSH Last administered on 20:21; Start 11/09/16 at 20:00; Stop 11/09/16 at 20:01; Status DC Sodium Chloride (NS Flush) 2 ml UNSCH PRN IV FLUSH FLUSH AFTER USING IV ACCESS Last administered on 11/11/16 01:50; Start 11/09/16 at 22:00 Sodium Chloride (NS Flush) 2 ml BID IV FLUSH Last administered on 11/11/16 09: 31; Start 11/10/16 at 09:00 Ondansetron HCl (Zofran Inj) 4 mg Q6H PRN IVP NAUSEA OR VOMITING Last administered on 11/10/16 03:47; Start 11/09/16 at 22:00 Naloxone HCl (Narcan Inj) 0.4 mg UNSCH PRN IV SEE LABEL COMMENTS; Start at 22:00 Senna/Docusate Sodium (Kanwal-Colace) 1 tab BID PO Last administered on 11/11/16 08:38; Start 11/10/16 at 09:00 Magnesium Hydroxide (Milk Of Magnesia Liq) 30 ml Q12H PRN PO MILD - MODERATE CONSTIPATION; Start 11/09/16 at 22:00; Stop 11/09/16 at 22:46; Status DC Sennosides (Senokot) 17.2 mg Q12H PRN PO MODERATE - SEVERE CONSTIPATION Last administered on 11/10/16 01:00; Start 11/09/16 at 22:00 Bisacodyl (Dulcolax Supp) 10 mg DAILY PRN RECTAL SEVERE CONSITIPATION; Start at 22:00 Lactulose (Lactulose Liq) 30 ml DAILY PRN PO SEVERE CONSITIPATION Last administered on 11/10/16 01:00; Start 11/09/16 at 22:00 Dextrose (D50w (Vial) Inj) 50 ml UNSCH PRN IV HYPOGLYCEMIA-SEE COMMENTS; Start 11/09/16 at 22:00 Glucagon (Glucagon Inj) 1 mg UNSCH PRN OTHER HYPOGLYCEMIA-SEE COMMENTS; Start 11/09/16 at 22:00 Insulin Aspart (NovoLOG SUPPLEMENTAL SCALE) 1 ACHS SLIDING SCALE SQ ; Start 11/10/16 at 07:00 Metoclopramide HCl (Reglan Inj) 10 mg Q8H PRN IV PUSH nausea NOT CONTROLED BY ZOFRAN; Start 11/09/16 at 22:45; Stop 11/09/16 at 22:49; Status DC Metoclopramide HCl (Reglan Inj) 5 mg Q8H PRN IV PUSH nausea NOT CONTROLED BY ZOFRAN Last administered on 11/10/16 08:46; Start 11/09/16 at 23:00 Morphine Sulfate 2 mg 2 mg Q3H PRN IV PUSH pain>5 Last administered on 01:49; Start 11/10/16 at 00:00 Pharmacy Profile Note 0 ml @ 0 mls/hr UNSCH OTHER ; Start 11/10/16 at 00:00; Stop 11/11/16 at 09:17; Status DC Piperacillin Sod/ Tazobactam Sod 100 ml @ 200 mls/hr Q6H IV ; Start 11/10/16 at 00:00; Stop 11/10/16 at 00:00; Status DC Ciprofloxacin/ Dextrose (Cipro 400 Mg Premix) 200 ml @ 200 mls/hr Q24H IV Last administered on 11/11/16 01:46; Start 11/10/16 at 01:00 Amlodipine Besylate (Norvasc) 10 mg DAILY PO Last administered on 11/10/16 08: 45; Start 11/10/16 at 09:00 Buspirone HCl (Buspar) 10 mg BID PO Last administered on 11/11/16 08:37; Start 11/10/16 at 09:00 Enalapril Maleate (Vasotec) 10 mg DAILY PO Last administered on 11/10/16 08:45 ; Start 11/10/16 at 09:00 Metoprolol Tartrate (Lopressor) 50 mg BID PO Last administered on 11/10/16 08: 45; Start 11/10/16 at 09:00 Pantoprazole Sodium (Protonix) 40 mg BID PO Last administered on 11/11/16 08:38 ; Start 11/10/16 at 09:00 Pregabalin (Lyrica) 75 mg BID PO Last administered on 11/11/16 08:38; Start 11/10/16 at 09:00 Enalaprilat 2.5 mg 2.5 mg Q6H PRN IV PUSH bp>160/90 Last administered on 03:09; Start 11/10/16 at 00:00 Piperacillin Sod/ Tazobactam Sod 50 ml @ 200 mls/hr Q6H IV Last administered on 11/11/16 11:45; Start 11/10/16 at 00:00 Vancomycin HCl 1000 mg/Sodium Chloride 250 ml @ 250 mls/hr DAILY@03 IV Last administered on 11/10/16 03:09; Start 11/10/16 at 03:00; Stop 11/10/16 at 07:00; Status DC Sodium Chloride (NS 1000 ml Inj) 1,000 ml @ 0 mls/hr Q0M PRN IV For Prime & Rinse Back; Start 11/10/16 at 14:23 Heparin Sodium (Porcine) 8000 units 8,000 units UNSCH PRN IVF WITH DIALYSIS; Start 11/10/16 at 14:30 Sodium Chloride 1,000 ml @ 200 mls/hr Q5H PRN IV WITH DIALYSIS; Start 11/10/16 at 14:23 Sodium Chloride (NS 1000 ml Inj) 1,000 ml @ 0 mls/hr Q0M PRN IV WITH DIALYSIS; Start 11/10/16 at 14:23 Mannitol (Mannitol Inj) 12.5 gm UNSCH PRN IV WITH DIALYSIS; Start 11/10/16 at 14 :30 Albumin Human (Albumin 25% Inj) 25 gm UNSCH PRN IV WITH DIALYSIS; Start at 14:30 Sodium Chloride (NS Flush) 5 ml UNSCH PRN IV FLUSH WITH DIALYSIS; Start at 14:30 Heparin Sodium (Porcine) (Heparin Inj) UNSCH PRN .XX WITH DIALYSIS; Start 11/10 at 14:30 Gentamicin Sulfate (Gentamicin (Dialysis) Inj) 20 mg UNSCH PRN IV WITH DIALYSIS ; Start 11/10/16 at 14:30 Ondansetron HCl (Zofran Inj) 4 mg UNSCH PRN IV WITH DIALYSIS; Start 11/10/16 at 14:30 Acetaminophen (Tylenol) 650 mg UNSCH PRN PO for headach, pain, temp > 101F; Start 11/10/16 at 14:30 Diphenhydramine HCl (Benadryl) 25 mg UNSCH PRN PO for hives/itching/anaphylaxis ; Start 11/10/16 at 14:30 Nitroglycerin (Nitrostat Sl) 0.4 mg UNSCH PRN SL CHEST PAIN; Start 11/10/16 at 14:30 Clonidine (Catapres) 0.1 mg UNSCH PRN PO for BP > 180/100 X 2 readings; Start 11/10/16 at 14:30 Gelatin (Gelfoam 12 Mm/7 Mm Top) 1 foam UNSCH PRN TOP SEE LABEL COMMENTS; Start 11/10/16 at 14:30 Physical Exam General Appearance: No Acute Distress, Comfortable Eyes Eye Exam: Sclera White Pulmonary Resp Exam: Clear Bilaterally, Breath Sounds Equal, No Distress Cardiology CV Exam: Regular, Normal Sinus Rhythm Gastrointestinal/Abdomen GI Exam: Soft, Non-Tender Integumentary Skin Exam: Clear, Warm, Normal Turgor (no peripheral edema.) Assessment/Plan Discussed Condition With: Patient Problem List: (1) ESRD (end stage renal disease) on dialysis Plan: Continue hemodialysis Sunday and Saturdays. Blood cultures negative 48 hours. Await final result however clinically the patient does not appear to be septic. Medication should be adjusted for his end-stage renal disease when indicated. Avoid gadolinium. Discharge planning when okay with primary care and infectious disease. We'll see patient again Sunday unless otherwise indicated. (2) Nausea & vomiting Plan: Patient does have a history of severe diabetic gastroparesis. He has been seen by gastroenterology during previous admissions however I'm uncertain if the patient is ever followed up with them as an outpatient as he has been advised in the past. If GI symptoms continue suggest GI consultation. (3) CHF (congestive heart failure) Plan: Clinically compensated at this time. (4) HTN (hypertension) (5) Diabetes mellitus Plan: Management per primary care physician. Problem Qualifiers (1) Nausea & vomiting: Qualified Code: R11.2 - Non-intractable vomiting with nausea, unspecified vomiting type David Kennedy MD Nov 11, 2016 16:26
[2016-11-11 18:02] VITALS: PULSE 55
[2016-11-11 20:00] VITALS: BP 149/70; PULSE 70; RESP 18; TEMP 98.7; O2SAT 100
[2016-11-11 20:15] VITALS: PULSE 71
[2016-11-12] VITALS: BP 109/57; PULSE 59; RESP 18; TEMP 98.7; O2SAT 97
[2016-11-12] MEDS: PIPERACIL-TAZO 3.375 GM PREMIX 50 ML IV SCH ×3 (00:11→11:39)
[2016-11-12] MEDS: CIPROFLOXACIN 400 MG PREMIX 200 ML IV SCH (00:17)
[2016-11-12 04:00] VITALS: BP 125/60; PULSE 64; RESP 18; TEMP 98.9; O2SAT 97
[2016-11-12] MEDS: INSULIN ASPART SUPPLEMENTAL SCALE SQ SCH ×2 (06:11→12:04)
[2016-11-12 08:00] VITALS: BP 129/60; PULSE 55; RESP 18; TEMP 97.8; O2SAT 99
[2016-11-12] MEDS: DOCUSATE SODIUM 50 MG/SENNA 8.6 MG TAB PO SCH (09:00)
--- NOTE | 2016-11-12 09:53 | HHI.PR ---
Subjective Remarks Follow-up sepsis 11/10/16-patient seen and examined, afebrile and denies any nausea of vomiting since admissions patient has a permacath placed 1 month. His AV fistula is 2 weeks matured. Patient denies any significant increase in ostomy output prior to admission 11/11/16-patient seen and examined, reports improvement of nausea and vomiting. Currently afebrile. No issues. Plan hemodialysis today 11/12/16-patient seen and examined, afebrile, tolerated by mouth well without any complication nausea and vomiting. Objective Vitals Vital Signs Date Time Temp Pulse Resp B/P Pulse Ox O2 Delivery O2 Flow Rate FiO2 11/12/16 08:00 97.8 55 18 129/60 99 11/12/16 04:00 Room Air 11/12/16 04:00 98.9 64 18 125/60 97 11/12/16 00:00 Room Air 11/12/16 00:00 98.7 59 18 109/57 97 11/11/16 21:00 Room Air 11/11/16 20:15 71 11/11/16 20:00 98.7 70 18 149/70 100 11/11/16 18:02 55 11/11/16 12:00 98.1 58 20 116/56 98 11/11/16 11:00 97 Room Air 11/11/16 09:58 20 I/O 11/11/16 11/11/16 11/11/16 11/12/16 11/12/16 11/12/16 07:00 15:00 23:00 07:00 15:00 23:00 Intake Total 351 ml 580 ml 490 ml Output Total 1000 ml 0 ml Balance 351 ml -420 ml 490 ml Intake Oral 60 ml 480 ml 240 ml IV Total 291 ml 100 ml 250 ml Output Urine Total 0 ml 0 ml Hemodialysis 1000 ml # Voids 1 # Bowel Movements 0 Result Diagram: 11/10/1692611/10/16926 Imaging Last Impressions Abdomen/Pelvis CT 11/09/161836 Signed Impressions: Service Date/Time: November 19:45 - CONCLUSION: Several prominent loops of colon in the right lower quadrant adjacent to the ostomy, containing hyperdense stool. This suggests constipation. No dilated loops of small bowel however. There is also an increase in the size of a left inguinal hernia contains a loop of small bowel and there is an increased amount of free fluid seen in the inguinal hernia and tracking along loops of small bowel in the lower left abdomen. Hiatus hernia is also increased in size. Wilian Lopez MD Chest X-Ray 11/09/16 9810 Signed Impressions: Service Date/Time: , November 09, 2016 17:10 - CONCLUSION: No acute disease. No significant change has occurred. Joselito Tong MD Objective Remarks GENERAL: NAD SKIN: Warm and dry. HEAD: Normocephalic. EYES: No scleral icterus. No injection or drainage. NECK: Supple, trachea midline. No JVD or lymphadenopathy. Left permacath in place without any surrounding erythema or redness CARDIOVASCULAR: Regular rate and rhythm without murmurs, gallops, or rubs. RESPIRATORY: Breath sounds equal bilaterally. No accessory muscle use. GASTROINTESTINAL: Abdomen soft, non-tender, nondistended. Ostomy by with normal stool MUSCULOSKELETAL: No cyanosis, or edema. BACK: Nontender without obvious deformity. No CVA tenderness. Procedures None A/P Problem List: (1) Nausea & vomiting ICD Code: R11.2 Status: Acute (2) Sepsis ICD Code: A41.9 Status: Acute (3) ESRD (end stage renal disease) on dialysis ICD Code: N18.6 Status: Chronic (4) HTN (hypertension) ICD Code: I10 Status: Chronic (5) DM (diabetes mellitus) ICD Code: E11.9 Status: Chronic Assessment and Plan 56-year-old man with Sepsis-resolved Patient admitted with presumed sepsis with unknown source History of end-stage renal disease with left Permcath in place, ostomy with normal stool -Appreciate input from infectious disease -IV antibiotics Cipro and zosyn -Culture report preliminary negative 3 days, therefore will discontinue all antibiotics today Dyspnea r/o PE D dimer 3.23, troponin .02 -O2 as needed Intractable nausea and vomiting-resolved -Antiemetics PRN -Advance diet as tolerated Constipation/abdominal pain Abdominal CT reviewed shows -Resolved and continue Lactulose PRN ESRD on HD, patient had HD on 11/10/16, chronic -Appreciate input from nephrology -He had HD yesterday 11/11/16 HTN, chronic -Continue home medications Vasotec, metoprolol, and Norvasc DM, chronic -Accu checks with SSI DVT prophylaxis: SCDs Problem Qualifiers (1) Nausea & vomiting: Qualified Code: R11.2 - Non-intractable vomiting with nausea, unspecified vomiting type Dallas Taylor MD Nov 12, 2016 09:52
[2016-11-12] MEDS: SODIUM CHLORIDE 0.9% FLUSH 10 ML FLUSH IV FLUSH SCH (10:19)
[2016-11-12] MEDS: busPIRone HCL 10 MG TAB PO SCH (10:19)
[2016-11-12] MEDS: METOPROLOL TARTRATE 50 MG TAB PO SCH (10:19)
[2016-11-12] MEDS: PREGABALIN 75 MG CAP PO SCH (10:19)
[2016-11-12] MEDS: PANTOPRAZOLE SOD 40 MG DELAYED RELEASE TAB PO SCH (10:20)
[2016-11-12] MEDS: ENALAPRIL MALEATE 10 MG TAB PO SCH (10:21)
[2016-11-12 10:27] VITALS: BP 137/64; PULSE 73
[2016-11-12] MEDS: MORPHINE SULFATE 8 MG/ML INJ IV PUSH PRN (11:39)
[2016-11-12 12:00] VITALS: BP 131/63; PULSE 56; RESP 18; TEMP 98.1; O2SAT 100
[2016-11-12 12:04] VITALS: RESP 18
[2016-11-12 12:12] LABS: AUTOMATED NEUTROPHIL # 7.8 TH/MM3 (1.8-7.7); BASOPHIL % 0.5 % (0.0-2.0); EOSINOPHIL # 0.1 TH/MM3 (0-0.4); EOSINOPHIL % 1.4 % (0.0-4.0); HEMATOCRIT 32.5 % (39.0-51.0); HEMO FLAGS DIFF FINAL; LYMPH % 9.1 % (9.0-44.0); LYMPHOCYTE # 0.9 TH/MM3 (1.0-4.8); MEAN CELL VOLUME 89.1 FL (80.0-100.0); MEAN CORPUSCULAR HEMOGLOBIN 28.7 PG (27.0-34.0); MEAN CORPUSCULAR HGB CONC 32.2 % (32.0-36.0); MONO % 8.4 % (0.0-8.0); NEUT % 80.6 % (16.0-70.0); PLATELET COUNT 153 TH/MM3 (150-450); RED BLOOD COUNT 3.65 MIL/MM3 (4.50-5.90); RED CELL DISTRIBUTION WIDTH 14.8 % (11.6-17.2); WHITE BLOOD COUNT 9.7 TH/MM3 (4.0-11.0)
--- NOTE | 2016-11-12 12:20 | HHI.DS ---
Discharge Summary Admission Date Nov 09, 2016 at 21:33 Discharge Date: Nov 12, 2016 Admitting Diagnosis nausea and vomiting (1) Nausea & vomiting ICD Code: R11.2 (2) Sepsis ICD Code: A41.9 (3) ESRD (end stage renal disease) on dialysis ICD Code: N18.6 (4) HTN (hypertension) ICD Code: I10 (5) DM (diabetes mellitus) ICD Code: E11.9 Procedures None Brief History - From Admission Written by BOOGIE Dodson acting as scribe for [Gomez] on 11/09/16 at 23: 40. 56 y/o male with a history of ESRD, DM, [place], CHF, neuropathy presented to the ED with complaints of dyspnea, abdominal pain, nausea and vomiting. Patient states he was at dialysis and he started to feel bad, 10 mins after arriving home he began to have nausea and vomiting, and then became sob. He states he has vomiting about 30 times. Denies any blood in emesis. He also complains of abdominal pain across his abdomen, but denies any constipation, states last BM was yesterday with no change in color or form. During examination he is very sob , nauseated and having dry heaves. He denies any chest pain or fevers, but he is very cold. Most recent surgery was a LAV fistula placed on October 20, 2016. CBC/BMP: 11/12/16 1155 11/10/16 0927 Significant Findings Laboratory Tests Test 11/09/16 11/10/16 11/10/16 11/12/16 17:15 00:25 09:27 11:55 White Blood Count 15.1 TH/MM3 12.5 TH/MM3 (4.0-11.0) (4.0-11.0) Red Blood Count 4.17 MIL/MM3 4.06 MIL/MM3 3.65 MIL/MM3 (4.50-5.90) (4.50-5.90) (4.50-5.90) Hemoglobin 11.8 GM/DL 11.7 GM/DL 10.5 GM/DL (13.0-17.0) (13.0-17.0) (13.0-17.0) Hematocrit 36.6 % 35.1 % 32.5 % (39.0-51.0) (39.0-51.0) (39.0-51.0) Neutrophils (%) (Auto) 91.0 % 87.1 % 80.6 % (16.0-70.0) (16.0-70.0) (16.0-70.0) Lymphocytes (%) (Auto) 4.8 % 5.6 % (9.0-44.0) (9.0-44.0) Neutrophils # (Auto) 13.8 TH/MM3 10.8 TH/MM3 7.8 TH/MM3 (1.8-7.7) (1.8-7.7) (1.8-7.7) Lymphocytes # (Auto) 0.7 TH/MM3 0.7 TH/MM3 0.9 TH/MM3 (1.0-4.8) (1.0-4.8) (1.0-4.8) Activated Partial 23.4 SEC Thromboplast Time (24.3-30.1) D-Dimer Quantitative (PE/DVT) 3.23 MG/L FEU (0.00-0.50) Sodium Level 132 MEQ/L (136-145) Chloride Level 97 MEQ/L (98-107) Creatinine 3.53 MG/DL 5.02 MG/DL (0.60-1.30) (0.60-1.30) Estimat Glomerular Filtration 18 ML/MIN (>89) 12 ML/MIN (>89) Rate Random Glucose 197 MG/DL 162 MG/DL (74-106) (74-106) Lactic Acid Level 3.2 mmol/L (0.4-2.0) Aspartate Amino Transf 13 U/L (15-37) (AST/SGOT) Troponin I LESS THAN 0.02 0.18 NG/ML NG/ML (0.02-0.05) (0.02-0.05) B-Type Natriuretic Peptide 820 PG/ML (0-100) Urine Protein 30 mg/dL (NEG-TRACE) Urine Glucose (UA) 70 mg/dL (NEG) Urine Occult Blood TRACE (NEG) Urine Leukocyte Esterase TRACE (NEG) Urine Bacteria RARE /hpf (NONE) Blood Urea Nitrogen 22 MG/DL (7-18) Monocytes (%) (Auto) 8.4 % (0.0-8.0) PE at Discharge GENERAL: NAD SKIN: Warm and dry. HEAD: Normocephalic. EYES: No scleral icterus. No injection or drainage. NECK: Supple, trachea midline. No JVD or lymphadenopathy. Left permacath in place without any surrounding erythema or redness CARDIOVASCULAR: Regular rate and rhythm without murmurs, gallops, or rubs. RESPIRATORY: Breath sounds equal bilaterally. No accessory muscle use. GASTROINTESTINAL: Abdomen soft, non-tender, nondistended. Ostomy by with normal stool MUSCULOSKELETAL: No cyanosis, or edema. BACK: Nontender without obvious deformity. No CVA tenderness. Hospital Course Patient treated with IV antibiotics for presumed sepsis with monitoring of cultures which remained negative prior to discharge. Infectious disease patient was consulted. Nephrology was also consulted and patient underwent hemodialysis. He was continued on his treatment for other medical chronic conditions. Prior to discharge, antibiotics were discontinued and patient's condition remain stable. Pt Condition on Discharge: Stable Discharge Disposition: Discharge Home Discharge Time: <= 30 minutes Discharge Instructions DIET: Follow Instructions for: Renal Failure Diet Activities you can perform: Regular-No Restrictions Follow up Referrals: Nephrology PCP Follow-up - 1 Week Continued Medications: Amlodipine (Norvasc) 10 Mg Tab 10 MG PO DAILY Blood Pressure Management #30 Ref 0 TAB Buspirone (Buspirone) 10 Mg Tab 10 MG PO BID Anxiety Ref 0 TAB Enalapril (Enalapril) 10 Mg Tab 10 MG PO DAILY #30 Ref 0 TAB Metoprolol Tartrate (Metoprolol Tartrate) 50 Mg Tab 50 MG PO BID #60 Ref 0 TAB Pantoprazole (Protonix) 40 Mg Tab 40 MG PO BID Ulcer Prevention #60 Ref 0 TAB Pregabalin (Lyrica) 75 Mg Cap 75 MG PO BID #60 Ref 0 CAP Dallas Taylor MD Nov 12, 2016 12:20
[2016-11-12 12:44] LABS: POTASSIUM 3.5 MEQ/L (3.5-5.1)
== END 2016-11-12 13:55 | disposition home or self-care (01) | DRG 871 ==
LOC: NEPE 16:27 → NEDA 21:33 → OBSVTOIN 21:33 → N04B 11-10 03:30
PROVIDERS: ADMIT Hospitalist; ATTEND Hospitalist
PROC: 5A1D60Z (ICD-10-PCS; principal; 2016-11-11)
DX: A41.9 Sepsis, unspecified organism (principal); N18.6 End stage renal disease; I13.2 Hypertensive heart and chronic kidney disease with heart failure and with stage 5 chronic kidney disease, or end stage renal disease; E11.22 Type 2 diabetes mellitus with diabetic chronic kidney disease; K31.84 Gastroparesis; N25.81 Secondary hyperparathyroidism of renal origin; E11.43 Type 2 diabetes mellitus with diabetic autonomic (poly)neuropathy; Z93.3 Colostomy status; Z99.2 Dependence on renal dialysis; E78.5 Hyperlipidemia, unspecified; I50.9 Heart failure, unspecified; F41.9 Anxiety disorder, unspecified; F32.9 Major depressive disorder, single episode, unspecified; E78.00 Pure hypercholesterolemia, unspecified; I25.2 Old myocardial infarction; K21.9 Gastro-esophageal reflux disease without esophagitis; Z87.442 Personal history of urinary calculi; I25.10 Atherosclerotic heart disease of native coronary artery without angina pectoris; Z95.5 Presence of coronary angioplasty implant and graft; Z72.0 Tobacco use; K44.9 Diaphragmatic hernia without obstruction or gangrene; K59.00 Constipation, unspecified; I73.9 Peripheral vascular disease, unspecified; I34.0 Nonrheumatic mitral (valve) insufficiency
CPT/HCPCS: 71010; 74176; 80048; 80053; 80202; 81001; 82550; 82948; 83605; 83690; 83735; 83880; 84484; 85025; 85379; 85610; 85730; 87040; 90935; 93005; 96374; 96375; 96376; J0744; J0780; J1580; J1644; J1815; J2270; J2405; J2543; J2765; J3370; J7050

== ENCOUNTER 2016-12-12 15:49 | Inpatient (IN) | payer OTHER, MEDICARE ==
[~2016-12-12] VITALS: Ht 170.2 cm; Wt 66.2 kg
[2016-12-12 15:51] VITALS: BP 122/76; PULSE 79; RESP 15; TEMP 98.1; O2SAT 99
--- NOTE | 2016-12-12 16:00 | PD ---
Physical Exam Time Seen by Provider: 16:00 Narrative 56 y/o male presents complaining of red-appearing stool in his colostomy bag which started today. Vital signs reviewed. Seen at triage desk. Awaiting bed placement. Data Data Last Documented VS Vital Signs Date Time Temp Pulse Resp B/P Pulse Ox O2 Delivery O2 Flow Rate FiO2 12/12/16 15:51 98.1 79 15 122/76 99 MDM Medical Record Reviewed: Yes Supervised Visit with ALIDA: Jenaro Duque Dec 12, 2016 16:00
[2016-12-12] MEDS ORDERED: PANTOPRAZOLE INJ 80 MG in SODIUM CHLORIDE 0.9% INJ 35 ML IV ONE (17:00)
[2016-12-12] MEDS ORDERED: SODIUM CHLORIDE 0.9% FLUSH 10 ML FLUSH IVF PRN (17:00)
--- NOTE | 2016-12-12 17:34 | PD ---
HPI Chief Complaint: GI Complaint Time Seen by Provider: 16:52 Travel History International Travel<30 days: No Contact w/Intl Traveler<30days: No Traveled to known affect area: No History of Present Illness HPI 56yo M with PMH of HTN, DM, ESRD on HD (Follows with Dr. Kennedy) presents to he ED with c/o blood in colostomy bag today. Pt states that he was at hemodialysis today and had a large bowel movement that was normal. However, he did have an episode of NBNB vomit at dialysis today and dialysis was stopped about an hour early. States he has never had GI bleed before. He noticed it when he went home from dialysis. Pt also with abdominal pain in suprapubic region and around colostomy today. Denies any fever, cough, chest pain, sob, focal weakness or numbness. Pt with generalized weakness. PFSH Past Medical History Hx Anticoagulant Therapy: No Arthritis: No Asthma: No Blood Disorders: No Anxiety: Yes Depression: Yes Heart Rhythm Problems: No Cancer: No Cardiac Catheterization: Yes Cardiovascular Problems: Yes (CHF, HEART ATTACK 12 YEARS AGO, PVD CAD ) High Cholesterol: Yes Chest Pain: No Congestive Heart Failure: Yes COPD: No Cerebrovascular Accident: No Diabetes: Yes (NO MEDS SINCE ON DIALYSIS) Patient Takes Glucophage: No Dialysis: Yes (RIGHT CHEST VAS CATH) Diminished Hearing: No Endocrine: Yes Gastrointestinal Disorders: Yes (gastroparesis, GERD, COLOSTOMY) GERD: Yes Genitourinary: Yes (CKD ) Headaches: No Hepatitis: No Hiatal Hernia: Yes Hypertension: Yes Immune Disorder: No Inguinal Hernia: Yes Implanted Vascular Access Dvce: Yes (L FOREARM fistula) Kidney Stones: Yes Medical other: Yes (NO BP, BLOOD DRAWING LEFT ARM) Musculoskeletal: No Neurologic: Yes (neuropathy FEET AND HANDS) Psychiatric: Yes Reproductive: No Respiratory: Yes (HX PNEUMONIA) Immunizations Current: Yes Migraines: No Myocardial Infarction: Yes (2003) Renal Failure: Yes (chronic kidney disease on hemodialysis) Seizures: No Sleep Apnea: No Thyroid Disease: No Ulcer: No Tetanus Vaccination: Unknown Past Surgical History Abdominal Surgery: Yes (BOWEL RESECTION, COLOSTOMY) AICD: No Arteriovenous Shunt: No Body Medical Devices: Cardiac Stent, left fistula, PERMACATH UPPER LEFT CHEST Cardiac Surgery: No Coronary Stent: Yes Ear Surgery: No Endocrine Surgery: No Eye Surgery: No Genitourinary Surgery: No Gynecologic Surgery: No Insulin Pump: No Joint Replacement: No Oral Surgery: No Pacemaker: No Thoracic Surgery: No Other Surgery: Yes (KELLY fistula, right leg fem pop bypass) Social History Alcohol Use: No Tobacco Use: Yes (1/2 PPD) Substance Use: No Allergies-Medications (Allergen,Severity, Reaction): Coded Allergies: No Known Allergies (Unverified , 12/12/16) Reported Meds & Prescriptions Reported Meds & Active Scripts Active Protonix (Pantoprazole Sodium) 40 Mg Tab 40 Mg PO BID Reported Lyrica (Pregabalin) 75 Mg Cap 75 Mg PO BID Enalapril (Enalapril Maleate) 10 Mg Tab 10 Mg PO DAILY Norvasc (Amlodipine Besylate) 10 Mg Tab 10 Mg PO DAILY Buspirone (Buspirone HCl) 10 Mg Tab 10 Mg PO BID Metoprolol Tartrate 50 Mg Tab 50 Mg PO BID Review of Systems Except as stated in HPI: all other systems reviewed are Neg Physical Exam Narrative GENERAL: 56yo M in mild distress. SKIN: Focused skin assessment warm/dry. HEAD: Atraumatic. Normocephalic. EYES: Pupils equal and round. No scleral icterus. No injection or drainage. ENT: No nasal bleeding or discharge. Mucous membranes pink and moist. NECK: Trachea midline. No JVD. CARDIOVASCULAR: Regular rate and rhythm. No murmur appreciated. RESPIRATORY: No accessory muscle use. Clear to auscultation. Breath sounds equal bilaterally. GASTROINTESTINAL: Abdomen soft, +Colostomy with about 20cc of maroon blood in colostomy bag. MUSCULOSKELETAL: No obvious deformities. No clubbing. No cyanosis. No edema. NEUROLOGICAL: Awake and alert. No obvious cranial nerve deficits. Motor grossly within normal limits. Normal speech. PSYCHIATRIC: Appropriate mood and affect; insight and judgment normal. Data Data Last Documented VS Vital Signs Date Time Temp Pulse Resp B/P Pulse Ox O2 Delivery O2 Flow Rate FiO2 12/12/16 18:22 67 20 151/70 100 Room Air 12/12/16 15:51 98.1 Orders Basic Metabolic Panel (Bmp) (12/12/16 16:59) Complete Blood Count With Diff (12/12/16 16:59) Prothrombin Time / Inr (Pt) (12/12/16 16:59) Act Partial Throm Time (Ptt) (12/12/16 16:59) Urinalysis - C+S If Indicated (12/12/16 16:59) Type And Screen (12/12/16 16:59) Ecg Monitoring (12/12/16 16:59) Iv Access Insert/Monitor (12/12/16 16:59) Oximetry (12/12/16 16:59) Sodium Chloride 0.9% Flush (Ns Flush) (12/12/16 17:00) Pantoprazole Inj (Protonix Inj) (12/12/16 17:00) Pantoprazole Inj (Protonix Inj) (12/12/16 17:00) Ct Abd/Pel W/O Iv Contrast (12/12/16 ) Morphine Inj (Morphine Inj) (12/12/16 18:00) Electrocardiogram (12/12/16 ) Ciprofloxacin 400 Mg Premix (Cipro 400 M (12/12/16 19:15) Consult Gastroenterology (12/12/16 19:07) Admit Order (Ed Use Only) (12/12/16 19:10) Labs Laboratory Tests Test 12/12/16 17:05 White Blood Count 17.2 TH/MM3 Red Blood Count 4.41 MIL/MM3 Hemoglobin 13.0 GM/DL Hematocrit 38.1 % Mean Corpuscular Volume 86.5 FL Mean Corpuscular Hemoglobin 29.6 PG Mean Corpuscular Hemoglobin 34.2 % Concent Red Cell Distribution Width 15.1 % Platelet Count 202 TH/MM3 Mean Platelet Volume 10.5 FL Neutrophils (%) (Auto) 85.4 % Lymphocytes (%) (Auto) 7.3 % Monocytes (%) (Auto) 6.3 % Eosinophils (%) (Auto) 0.5 % Basophils (%) (Auto) 0.5 % Neutrophils # (Auto) 14.7 TH/MM3 Lymphocytes # (Auto) 1.2 TH/MM3 Monocytes # (Auto) 1.1 TH/MM3 Eosinophils # (Auto) 0.1 TH/MM3 Basophils # (Auto) 0.1 TH/MM3 CBC Comment DIFF FINAL Differential Comment Prothrombin Time 11.2 SEC Prothromb Time International 1.0 RATIO Ratio Activated Partial 29.8 SEC Thromboplast Time Sodium Level 138 MEQ/L Potassium Level 4.0 MEQ/L Chloride Level 101 MEQ/L Carbon Dioxide Level 27.6 MEQ/L Anion Gap 9 MEQ/L Blood Urea Nitrogen 18 MG/DL Creatinine 4.96 MG/DL Estimat Glomerular Filtration 12 ML/MIN Rate Random Glucose 88 MG/DL Calcium Level 9.0 MG/DL Blood Type O POSITIVE Antibody Screen NEGATIVE MDM Medical Decision Making Medical Screen Exam Complete: Yes Emergency Medical Condition: Yes Interpretation(s) EKG: Sinus bradycardia at 57bpm. LAD. No ST segment elevation or depression. Differential Diagnosis AV malformation vs. bleeding from colostomy vs. obstruction Narrative Course 56yo M with episode of blood found in colostomy bag today. Pt has never had GI bleed. Never had colonoscopy. Has had endoscopy before and found to have hiatal hernia. Pt had an episode of vomiting and hypotension at dialysis today. Labs reviewed, leukocytosis at 17.2, may be secondary to GI bleed. H/H is 13/38.1. Creatinine is elevated at 4.96 which is baseline and pt is on hemodialysis. Morphine given for pain. Pt given protonix bolus and is on protonix drip. Discussed with GI Dr. Terrell and will place consult for him. CTa/p showed mural thickening of colon proximal to colostomy with some pericolonic fat stranding most characteristic of right sided colitis. Left inguinal hernia containing bowel similar to prior study in November. No bowel obstruction. Pt given cipro and flagyl IV. Discussed with resident physicians and accepted to their service. Diagnosis Primary Impression: Acute colitis Admitting Information Admitting Physician Requests: Admit Mady Orona DO Dec 12, 2016 17:33 Mady Orona DO Dec 12, 2016 17:33
[2016-12-12 17:38] LABS: AUTOMATED NEUTROPHIL # 14.7 TH/MM3 (1.8-7.7); BASOPHIL # 0.1 TH/MM3 (0-0.2); BASOPHIL % 0.5 % (0.0-2.0); EOSINOPHIL # 0.1 TH/MM3 (0-0.4); EOSINOPHIL % 0.5 % (0.0-4.0); HEMATOCRIT 38.1 % (39.0-51.0); HEMO FLAGS DIFF FINAL; LYMPH % 7.3 % (9.0-44.0); LYMPHOCYTE # 1.2 TH/MM3 (1.0-4.8); MEAN CELL VOLUME 86.5 FL (80.0-100.0); MEAN CORPUSCULAR HEMOGLOBIN 29.6 PG (27.0-34.0); MEAN CORPUSCULAR HGB CONC 34.2 % (32.0-36.0); MONO % 6.3 % (0.0-8.0); NEUT % 85.4 % (16.0-70.0); PLATELET COUNT 202 TH/MM3 (150-450); RED BLOOD COUNT 4.41 MIL/MM3 (4.50-5.90); RED CELL DISTRIBUTION WIDTH 15.1 % (11.6-17.2); WHITE BLOOD COUNT 17.2 TH/MM3 (4.0-11.0)
[2016-12-12 17:57] LABS: APTT (PATIENT) 29.8 SEC (24.3-30.1); PROTHROMBIN TIME - PATIENT 11.2 SEC (9.8-11.6)
[2016-12-12] MEDS: PANTOPRAZOLE INJ 80 MG in SODIUM CHLORIDE 0.9% INJ 100 ML IV SCH (17:57)
[2016-12-12 18:00] LABS: BICARBONATE 27.6 MEQ/L (21.0-32.0)
[2016-12-12] MEDS ORDERED: MORPHINE SULFATE 4 MG/ML INJ IV PUSH ONE ×2 (18:00→19:15)
[2016-12-12 18:22] VITALS: BP 151/70; PULSE 67; RESP 20; O2SAT 100
--- NOTE | 2016-12-12 18:51 | RADRPT ---
EXAM DATE/TIME: 12/12/2016 18:26 [facility] COMPARISON: No previous studies available for comparison. INDICATIONS : Blood in stool in colostomy; abdominal pain. ORAL CONTRAST: No oral contrast ingested. RADIATION DOSE: 6.09 CTDIvol (mGy) MEDICAL HISTORY : Hypertension. Congestive heart failure. Myocardial infarction.Renal failure SURGICAL HISTORY : Colostomy. Colon resection. ENCOUNTER: Initial ACUITY: 1 day PAIN SCALE: 7/10 LOCATION: abdomen TECHNIQUE: Volumetric scanning of the abdomen and pelvis was performed. Using automated exposure control and ad justment of the mA and/or kV according to patient size, radiation dose was kept as low as reasonably achievable to obtain optimal diagnostic quality images. DICOM format image data is available electro nically for review and comparison. FINDINGS: Lung bases are clear. There is mural thickening of the colon proximal to the colostomy extending over a length of about 10-15 cm. Finding is most characteristic of a right-sided colitis. No acute findings in the liver, spleen, adrenals or pancreas. Renal cortical atrophy with numerous no nobstructing calcifications. No bladder calculi. Again seen is a left inguinal hernia containing loop of bowel. No obstruction identified. No acute bony abnormalities. CONCLUSION: 1. Mural thickening of colon proximal to colostomy with some pericolonic fat stranding most character istic of a right-sided colitis. 2. Left inguinal hernia containing bowel similar to prior study in November. No bowel obstruction. 3. Atrophic kidneys with numerous nonobstructing calcifications similar to prior exam. Eduardo Cano MD on December 12, 2016 at 18:46 Board Certified Radiologist. This report was verified electronically.
[2016-12-12] MEDS ORDERED: CIPROFLOXACIN 400 MG PREMIX 200 ML IV ONE (19:15)
[2016-12-12] MEDS ORDERED: metroNIDAZOLE 500 MG INJ 100 ML IV ONE (19:15)
--- NOTE | 2016-12-12 19:29 | HHI.HP ---
[facility] Service Family Medicine Primary Care Physician [facility] Admission Diagnosis Colitis, GI bleed Diagnoses: International Travel<30 Days: No Contact w/Intl Traveler<30days: No Known Affected Area: No History of Present Illness This a 56-year-old male with extensive past history significant for hypertension, diabetes, end-stage renal disease on dialysis, ischemic bowel resulting in colectomy and colostomy bag placement, and AZ. He is being admitted for blood found in his colostomy bag. Today, 12/12/16, he went to get his dialysis done while there he became nauseated and vomited nonbloody, non- biliary vomit. They stopped his dialysis and hourly because of this. He went home without home he started developing some abdominal pain in the epigastric region as well as around his colostomy. He then began to notice a large quantity of blood in his colostomy bag. This worried him as he never had a GI bleed before in the past. He decided to come to the hospital for further evaluation. (Kishore Granda MD R3) Review of Systems Constitutional: COMPLAINS OF: Change in appetite (decreased), DENIES: Fatigue , Fever, Weight gain, Weight loss, Chills Endocrine: DENIES: Polyuria, Polyphagia Eyes: DENIES: Blurred vision, Eye pain, Photosensitivity, Double Vision Ears, nose, mouth, throat: DENIES: Tinnitus, Nasal discharge, Throat pain, Hoarseness, Running Nose, Sinus Pain, Toothache Respiratory: DENIES: Cough, Wheezing, Hemoptysis, Shortness of breath Cardiovascular: DENIES: Chest pain, Lower Extremity Edema, Orthopnea Gastrointestinal: COMPLAINS OF: Abdominal pain, Bloody stools, Nausea, Vomiting , DENIES: Black stools, Constipation, Diarrhea, Difficulty Swallowing Genitourinary: COMPLAINS OF: Urinary frequency (decreased), DENIES: Urgency Musculoskeletal: DENIES: Joint pain, Back pain, Neck pain Hematologic/lymphatic: DENIES: Bruising, Lymphadenopathy Neurologic: DENIES: Abnormal gait, Headache, Seizures, Tremor, Poor Balance Psychiatric: DENIES: Anxiety, Confusion (Kishore Granda MD R3) Past Family Social History Past Medical History Hypertension Hypercholesterolemia Diabetes End-stage renal disease on dialysis Perforated bowel due to Ischemic bowel resulting in colectomy with colostomy bag placement GERD Gastroparesis Congestive heart failure AZ 12 years ago PVD CAD Neuropathy Past Surgical History Laparotomy Colectomy Colostomy placement Peripheral artery bypass Right great toe amputation Left Forearm fistula Cardiac stent Reported Medications Reported Meds & Active Scripts Active Protonix (Pantoprazole Sodium) 40 Mg Tab 40 Mg PO BID Reported Lyrica (Pregabalin) 75 Mg Cap 75 Mg PO BID Enalapril (Enalapril Maleate) 10 Mg Tab 10 Mg PO DAILY Norvasc (Amlodipine Besylate) 10 Mg Tab 10 Mg PO DAILY Buspirone (Buspirone HCl) 10 Mg Tab 10 Mg PO BID Metoprolol Tartrate 50 Mg Tab 50 Mg PO BID (Kishore Granda MD R3) Allergies: Coded Allergies: No Known Allergies (Unverified , 12/12/16) Family History Father from car wreck Mother from leukemia Brother from from aneurysm Social History Lives in an apartment in [place] NO Pets Dialysis Sunday, , Sunday Smoke a pack a day at most 2 packs a day Use to be a heavy drinker quit several years ago Use to do drugs no longer does as he does not trust them (Kishore Granda MD R3) Physical Exam Vital Signs Vital Signs Date Time Temp Pulse Resp B/P Pulse Ox O2 Delivery O2 Flow Rate FiO2 12/12/16 18:22 67 20 151/70 100 Room Air 12/12/16 15:51 98.1 79 15 122/76 99 Physical Exam GENERAL: 56yo M in mild distress. SKIN: Focused skin assessment warm/dry. HEAD: Atraumatic. Normocephalic. EYES: Pupils equal and round. No scleral icterus. No injection or drainage. ENT: No nasal bleeding or discharge. Mucous membranes pink and moist. Poor dentition Tympanic membranes visualized, borders within normal limits, pearly richardson NECK: Trachea midline. No JVD. CARDIOVASCULAR: Regular rate and rhythm. No murmur appreciated. RESPIRATORY: No accessory muscle use. Clear to auscultation. Breath sounds equal bilaterally. GASTROINTESTINAL: Abdomen soft, +Colostomy with about 20cc of maroon blood in colostomy bag. Colostomy is red in color and appears well perfused. Epigastric tenderness, tenderness around the colostomy. No hepatosplenomegaly MUSCULOSKELETAL: No obvious deformities. No clubbing. No cyanosis. No edema. 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 Left arm with palpable fistula with thrill NEUROLOGICAL: Awake and alert. No obvious cranial nerve deficits. Motor grossly within normal limits. Normal speech. PSYCHIATRIC: Appropriate mood and affect; insight and judgment normal. Laboratory Laboratory Tests Test 12/12/16 17:05 White Blood Count 17.2 Red Blood Count 4.41 Hemoglobin 13.0 Hematocrit 38.1 Mean Corpuscular Volume 86.5 Mean Corpuscular Hemoglobin 29.6 Mean Corpuscular Hemoglobin 34.2 Concent Red Cell Distribution Width 15.1 Platelet Count 202 Mean Platelet Volume 10.5 Neutrophils (%) (Auto) 85.4 Lymphocytes (%) (Auto) 7.3 Monocytes (%) (Auto) 6.3 Eosinophils (%) (Auto) 0.5 Basophils (%) (Auto) 0.5 Neutrophils # (Auto) 14.7 Lymphocytes # (Auto) 1.2 Monocytes # (Auto) 1.1 Eosinophils # (Auto) 0.1 Basophils # (Auto) 0.1 CBC Comment DIFF FINAL Differential Comment Prothrombin Time 11.2 Prothromb Time International 1.0 Ratio Activated Partial 29.8 Thromboplast Time Sodium Level 138 Potassium Level 4.0 Chloride Level 101 Carbon Dioxide Level 27.6 Anion Gap 9 Blood Urea Nitrogen 18 Creatinine 4.96 Estimat Glomerular Filtration 12 Rate Random Glucose 88 Calcium Level 9.0 Blood Type O POSITIVE Antibody Screen NEGATIVE (Kishore Granda MD R3) Result Diagram: 12/12/16 1705 12/12/16 1705 Imaging Last Impressions Abdomen/Pelvis CT 12/12/16 0000 Signed Impressions: Service Date/Time: Monday, December 12, 2016 18:26 - CONCLUSION: 1. Mural thickening of colon proximal to colostomy with some pericolonic fat stranding most characteristic of a right-sided colitis. 2. Left inguinal hernia containing bowel similar to prior study in November. No bowel obstruction. 3. Atrophic kidneys with numerous nonobstructing calcifications similar to prior exam. Eduardo Cano MD (Kishore Granda MD R3) Assessment and Plan Assessment and Plan This a 56-year-old male with extensive past history significant for hypertension, diabetes, end-stage renal disease on dialysis, ischemic bowel resulting in colectomy and colostomy bag placement, and [place]. Being admitted for GI bleed into his colostomy bag with colitis seen on CT imaging Code Status Full code Discussed Condition With WDW: Med Team B (Kishore Granda MD R3) Attending Attestation THIS CASE WAS DISCUSSED WITH THE RESIDENT PHYSICIANS. I HAVE REVIEWED THE RECORD AND AGREE WITH THE ABOVE NOTE AND PLAN OF CARE WAS DISCUSSED. I HAVE AUTHORIZED THE ORDER FOR ADMISSION TO AN IN-PATIENT STATUS. (Neno Aguilera MD) Problem List: (1) GI bleed Status: Acute Plan: Patient found to have acute bleeding through his colostomy into the colostomy bag. * Admitted to inpatient * GI consulted, recommendations appreciated * IV Protonix drip * Start ciprofloxacin 400 mg IV every 12 hours * Started Flagyl 500 mg IV every 8 hours * IV NS fluid at 100 MLS per hour * Trending H&H * CBC, BMP ordered for the a.m. (2) Acute colitis Status: Acute Plan: Patient found to have acute colitis on CT * Nothing by mouth * Protonix as above * IV fluids as above * Pain control with Dilaudid 1 mg IV every 4 hours (3) ESRD on hemodialysis Status: Chronic Plan: Patient with end-stage renal disease and gets dialysis Sunday * Nephrology consulted for following patient's end-stage renal disease and dialysis (4) Diabetes type 2, uncontrolled Status: Chronic Plan: Patient with type 2 diabetes to dialysis on end-stage renal disease. * Blood glucoses per protocol * Low-dose insulin sliding scale (5) Tobacco abuse counseling Status: Acute Plan: Long-standing history of smoking addiction currently smoking a pack a day * Nicotine patch * Counseled smoking cessation (6) HTN (hypertension) Status: Chronic Plan: Patient with history of hypertension * Clonidine per protocol * Continue amlodipine * Continue metoprolol (7) Nutrition, metabolism, and development symptoms Status: Acute Plan: Diet: Nothing by mouth Fluids: 100 MLS per hour Monitor I's place accordingly Vitals every 4 hours Out of bed with assistance DVT prophylaxis: SCDs, pharmacological prophylaxis contraindicated at this time due to GI bleed GI prophylaxis: Protonix drip CODE STATUS: Full code Discharge physician: Pending resolution of colitis and GI bleed, awaiting GI recommendations (Kishore Granda MD R3) Physician Certification 2 Midnight Certification Type: Admission for Inpatient Services Order for Inpatient Services The services are ordered in accordance with Medicare regulations or non- Medicare payer requirements, as applicable. In the case of services not specified as inpatient-only, they are appropriately provided as inpatient services in accordance with the 2-midnight benchmark. Estimated LOS (days): 3 days is the estimated time the patient will need to remain in the hospital, assuming treatment plan goals are met and no additional complications. Post-Hospital Plan: Home (Kishore Granda MD R3) Problem Qualifiers (1) Diabetes type 2, uncontrolled: Qualified Code: E11.22 - Uncontrolled type 2 diabetes mellitus with chronic kidney disease on chronic dialysis, with long-term current use of insulin Kishore Granda MD R3 Dec 12, 2016 19:28 Neno Aguilera MD Dec 13, 2016 11:05
[2016-12-12] MEDS ORDERED: SODIUM CHLORIDE 0.9% FLUSH 10 ML FLUSH IV FLUSH PRN (19:30)
[2016-12-12] MEDS ORDERED: GLUCAGON 1 MG/ML VIAL OTHER PRN (19:30)
[2016-12-12] MEDS ORDERED: DEXTROSE 50% IN WATER 50 ML VIAL(D50) IV PRN (19:30)
[2016-12-12] MEDS ORDERED: cloNIDine HCL 0.1 MG TAB PO PRN (19:30)
[2016-12-12 19:45] VITALS: O2SAT 100
[2016-12-12 20:00] VITALS: BP 132/66; PULSE 60; RESP 18; TEMP 97.3; O2SAT 99
[2016-12-12] MEDS ORDERED: PANTOPRAZOLE INJ 80 MG in SODIUM CHLORIDE 0.9% INJ 100 ML IV SCH (21:00)
[2016-12-12] MEDS: REMOVE OLD PATCH T-DERMAL SCH (21:00)
[2016-12-12] MEDS: metroNIDAZOLE 500 MG INJ 100 ML IV SCH (21:55)
[2016-12-12 22:01] VITALS: BP 133/66; PULSE 55; RESP 14; O2SAT 99
[2016-12-12] MEDS: METOPROLOL TARTRATE 50 MG TAB PO SCH (22:02)
[2016-12-12] MEDS: NICOTINE 21 MG/24 HR PATCH T-DERMAL SCH (22:04)
[2016-12-12] MEDS: SODIUM CHLOR 0.9% 1000 ML INJ 1,000 ML IV SCH (22:05)
[2016-12-12] MEDS: SODIUM CHLORIDE 0.9% FLUSH 10 ML FLUSH IV FLUSH SCH (22:05)
[2016-12-12] MEDS: busPIRone HCL 10 MG TAB PO SCH (22:13)
[2016-12-12] MEDS: PREGABALIN 75 MG CAP PO SCH (22:13)
[2016-12-12] MEDS: INSULIN ASPART SUPPLEMENTAL SCALE SQ SCH (22:17)
[2016-12-12] MEDS: ONDANSETRON HCL 4 MG/2 ML VIAL IV PRN (23:09)
[2016-12-12] MEDS: HYDROmorphone HCL PF 1 MG/ML VIAL IV PUSH PRN (23:10)
[2016-12-13] MEDS: PANTOPRAZOLE INJ 80 MG in SODIUM CHLORIDE 0.9% INJ 100 ML IV SCH ×3 (02:06→21:48)
[2016-12-13 04:21] LABS: AUTOMATED NEUTROPHIL # 9.5 TH/MM3 (1.8-7.7); BASOPHIL # 0.1 TH/MM3 (0-0.2); BASOPHIL % 0.4 % (0.0-2.0); EOSINOPHIL # 0.1 TH/MM3 (0-0.4); EOSINOPHIL % 0.9 % (0.0-4.0); HEMATOCRIT 32.9 % (39.0-51.0); HEMO FLAGS DIFF FINAL; LYMPH % 14.9 % (9.0-44.0); LYMPHOCYTE # 1.9 TH/MM3 (1.0-4.8); MEAN CELL VOLUME 86.6 FL (80.0-100.0); MEAN CORPUSCULAR HEMOGLOBIN 29.3 PG (27.0-34.0); MEAN CORPUSCULAR HGB CONC 33.8 % (32.0-36.0); NEUT % 75.8 % (16.0-70.0); PLATELET COUNT 143 TH/MM3 (150-450); RED BLOOD COUNT 3.81 MIL/MM3 (4.50-5.90); RED CELL DISTRIBUTION WIDTH 14.9 % (11.6-17.2); WHITE BLOOD COUNT 12.5 TH/MM3 (4.0-11.0)
[2016-12-13 04:22] LABS: HEMATOCRIT 33.4 % (39.0-51.0); REVIEW FLAG FINAL
[2016-12-13 04:54] LABS: BICARBONATE 27.8 MEQ/L (21.0-32.0); POTASSIUM 3.6 MEQ/L (3.5-5.1)
[2016-12-13] MEDS: SODIUM CHLOR 0.9% 1000 ML INJ 1,000 ML IV SCH (05:01)
[2016-12-13] MEDS: metroNIDAZOLE 500 MG INJ 100 ML IV SCH ×3 (05:02→21:43)
[2016-12-13] MEDS: HYDROmorphone HCL PF 1 MG/ML VIAL IV PUSH PRN ×5 (05:03→21:39)
[2016-12-13] MEDS: INSULIN ASPART SUPPLEMENTAL SCALE SQ SCH ×4 (05:08→20:07)
[2016-12-13] MEDS: ONDANSETRON HCL 4 MG/2 ML VIAL IV PRN ×4 (05:28→23:06)
[2016-12-13 08:00] VITALS: BP 136/66; PULSE 60; RESP 16; TEMP 97.2; O2SAT 97
--- NOTE | 2016-12-13 08:26 | EKG ---
Date Performed: 12/12/2016 Time Performed: 19:15:52 PTAGE: 56 years EKG: SINUS BRADYCARDIA BORDERLINE ECG PREVIOUS TRACING : 11/10/2016 06.29 DOCTOR: Anthony Nj Interpretating Date/Time 12/13/2016 08:24:01
--- NOTE | 2016-12-13 08:50 | HHI.FPPN ---
Subjective Remarks FM Attending Note: Patient seen and examined. S: Chart and all resident physician notes reviewed. In summary this is a 56 year old male who was admitted with an admission diagnosis of Colitis, Gi Bleed. 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 He is being admitted for blood found in his colostomy bag. Prior to noting the blood he did experience abdominal pain. He notes that all intestinal drainage is through the colostomy bag; normally this is somewhat constipated due to chronic use of tramadol. No fever or chills. Objective Vitals Vital Signs Date Time Temp Pulse Resp B/P Pulse Ox O2 Delivery O2 Flow Rate FiO2 12/13/16 08:00 97.2 60 16 136/66 97 12/12/16 22:01 55 14 133/66 99 Room Air 12/12/16 20:00 97.3 60 18 132/66 99 12/12/16 19:45 100 21 12/12/16 18:22 67 20 151/70 100 Room Air 12/12/16 15:51 98.1 79 15 122/76 99 I/O 12/12/16 12/12/16 12/12/16 12/13/16 12/13/16 12/13/16 07:00 15:00 23:00 07:00 15:00 23:00 Intake Total 120 ml 609 ml Output Total 0 ml Balance 120 ml 609 ml Intake Oral 120 ml 90 ml IV Total 519 ml Output Urine Total 0 ml Result Diagram: 12/13/16 0333 12/13/16 0333 Other Results Item Value Date Time Hemoglobin 13.0 GM/DL 12/12/16 1705 Hemoglobin 11.3 GM/DL L 12/13/16 0333 Hemoglobin 11.1 GM/DL L 12/13/16 0333 Hemoglobin 10.7 GM/DL L 12/13/16 1405 Imaging Last 48 hours Impressions Abdomen/Pelvis CT 12/12/16 0000 Signed Impressions: Service Date/Time: Monday, December 12, 2016 18:26 - CONCLUSION: 1. Mural thickening of colon proximal to colostomy with some pericolonic fat stranding most characteristic of a right-sided colitis. 2. Left inguinal hernia containing bowel similar to prior study in November. No bowel obstruction. 3. Atrophic kidneys with numerous nonobstructing calcifications similar to prior exam. Eduardo Cano MD Objective Remarks O. CONSTITUTIONAL/GEN: normally nourished, in NAD. EYES: conjunctiva normal, PERRLA, EOMI. ENT: Mouth and pharynx normal. LUNGS: clear A-P, respiratory effort is normal. CARDIOVASCULAR: RR without murmur or gallop. No significant edema. GI/ABD: soft without masses, without organomegaly. Mild direct tenderness in mid-abdominal area. Brown mostly liquid drainage in colostomy bag. NEURO: No focal deficits. Gait is normal SKIN: color normal, no rashes noted. HEME/LYMPH: no bruising, petechia or significant adenopathy MUSC: back is normal in appearance. Extremities are normal in appearance. PSYCH/MENTAL STATUS: Alert and oriented x 3. 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 Being admitted for GI bleed into his colostomy bag with colitis seen on CT imaging Problem List: (1) GI bleed Status: Acute Plan: Patient found to have acute bleeding through his colostomy into the colostomy bag. * Admitted to inpatient * GI consulted, recommendations appreciated * IV Protonix drip * Start ciprofloxacin 400 mg IV every 12 hours * Started Flagyl 500 mg IV every 8 hours * IV NS fluid at 100 MLS per hour * Trending H&H * CBC, BMP ordered for the a.m. 12/13/16 No recent antibiotic use reported, but in view of normal "constipated" drainage from colostomy will check C. Dif toxin assay. BI consultation pending. In view of history of ischemic colitis will keep adequately hydrated and avoid hypotension. Continue to monitor H&H. (2) Acute colitis Status: Acute Plan: Patient found to have acute colitis on CT * Nothing by mouth * Protonix as above * IV fluids as above * Pain control with Dilaudid 1 mg IV every 4 hours (3) ESRD on hemodialysis Status: Chronic Plan: Patient with end-stage renal disease and gets dialysis Sunday * Nephrology consulted for following patient's end-stage renal disease and dialysis (4) Diabetes type 2, uncontrolled Status: Chronic Plan: Patient with type 2 diabetes to dialysis on end-stage renal disease. * Blood glucoses per protocol * Low-dose insulin sliding scale 12/13/16 Patient is NPO. Will change IV fluids to dextrose containing fluid. Cautious use of fluids in view of ESRD. (5) Tobacco abuse counseling Status: Acute Plan: Long-standing history of smoking addiction currently smoking a pack a day * Nicotine patch * Counseled smoking cessation (6) HTN (hypertension) Status: Chronic Plan: Patient with history of hypertension * Clonidine per protocol * Continue amlodipine * Continue metoprolol (7) Nutrition, metabolism, and development symptoms Status: Acute Plan: Diet: Nothing by mouth Fluids: 100 MLS per hour Monitor I's place accordingly Vitals every 4 hours Out of bed with assistance DVT prophylaxis: SCDs, pharmacological prophylaxis contraindicated at this time due to GI bleed GI prophylaxis: Protonix drip CODE STATUS: Full code Discharge physician: Pending resolution of colitis and GI bleed, awaiting GI recommendations Problem Qualifiers (1) Diabetes type 2, uncontrolled: Qualified Code: E11.22 - Uncontrolled type 2 diabetes mellitus with chronic kidney disease on chronic dialysis, with long-term current use of insulin Neno Aguilera MD Dec 13, 2016 08:50
[2016-12-13] MEDS: SODIUM CHLORIDE 0.9% FLUSH 10 ML FLUSH IV FLUSH SCH ×2 (09:00→21:44)
[2016-12-13] MEDS: CIPROFLOXACIN 400 MG PREMIX 200 ML IV SCH ×2 (09:04→21:40)
[2016-12-13] MEDS: busPIRone HCL 10 MG TAB PO SCH ×2 (09:05→21:41)
[2016-12-13] MEDS: PREGABALIN 75 MG CAP PO SCH ×2 (09:05→21:41)
[2016-12-13] MEDS: METOPROLOL TARTRATE 50 MG TAB PO SCH ×2 (09:06→21:41)
[2016-12-13] MEDS: NICOTINE 21 MG/24 HR PATCH T-DERMAL SCH (09:06)
[2016-12-13] MEDS ORDERED: DEXT 5%-NACL 0.9% 500 ML INJ 500 ML IV ONE (11:00)
[2016-12-13 12:00] VITALS: BP 124/58; PULSE 54; RESP 16; TEMP 97.1; O2SAT 98
[2016-12-13 12:05] VITALS: O2SAT 96
[2016-12-13 15:51] LABS: HEMATOCRIT 32.2 % (39.0-51.0); REVIEW FLAG FINAL
[2016-12-13 16:00] VITALS: BP 139/65; PULSE 63; RESP 16; TEMP 97.2; O2SAT 100
--- NOTE | 2016-12-13 16:11 | PD.CONS ---
HPI History of Present Illness This is a 56 year old male with hx HTN, DM, ESRD on HD, bowel perforation with ischemia s/p colectomy and colostomy, SD, who presented with blood in colostomy bag. Yesterday he noticed bright red blood and looser than normal stool in his colostomy bag. Prior to this he was taking tramadol for his neuropathy and constipated, stopped taking tramadol and saw loose stool and blood. He says there is less blood today. He has hx perforated colon and developed necrotic tissue, he does not know how much colon was taken out adn thinks the perforation was d/t severe constipation. he c/o of some lower abd pain when he is constipated, as well as pain at his ostomy site. He has never had colonoscopy. Says he has had EGD in the last few months at [facility] for nausea and had botox inj at taht time which helped somewhat. Per EMR this was done 07/26--> S/P EGD with Botox injections (07/26/16) and this revealed duodenitis and the second portion, gastritis in the antrum, esophagitis/stricture distal esophagus, old PEG site and gastric body, Botox 100 units and pyloric channel 25 units in each quadrant injected, and dilatation savory 12.8, 14, retroflex views revealed a hiatal hernia. he was also given bethanechol which reportedly helped his nausea. PFSH Past Medical History End-stage renal disease Congestive heart failure Hypertension Secondary hyperparathyroidism renal disease Diabetes mellitus Peripheral arterial disease/peripheral vascular disease Anemia renal disease Hx of ischemic colitis requiring partial colectomy and colostomy Hx gangrene right great toe Gastritis/Esophagitis Atherosclerotic vascular disease Depression/Anxiety CDiff Mitral regurgitation Secondary hyperparathyroidism secondary to Vitamin D Deficiency Gastroparesis Past Surgical History Bypass of the right leg. Amputation of the right big toe. Hemicolectomy/Colostomy. PCI status post stent 2 years ago after an SD. Left av fistula Right tunneled subclavian dialysis catheter placement EGD Coded Allergies: No Known Allergies (Unverified , 12/12/16) Family History Mother with leukemia Brother with brain aneurysm Father from injuries sustained in a motor vehicle collision Social History Patient smokes half a pack per day. No ETOH No illicit drugs Review of Systems Constitutional: DENIES: Change in appetite Eyes: DENIES: Blurred vision Ears, nose, mouth, throat: DENIES: Hearing loss Respiratory: DENIES: Hemoptysis Cardiovascular: DENIES: Chest pain Gastrointestinal: COMPLAINS OF: Abdominal pain, Bloody stools, Constipation, Diarrhea, Nausea, DENIES: Black stools, Vomiting, Hematemesis Genitourinary: DENIES: Hematuria Musculoskeletal: DENIES: Joint Swelling Integumentary: DENIES: Pruritus Neurologic: DENIES: Abnormal gait Psychiatric: DENIES: Confusion GI Exam Vitals I&O Vital Signs Date Time Temp Pulse Resp B/P Pulse Ox O2 Delivery O2 Flow Rate FiO2 12/13/16 12:05 96 21 12/13/16 12:00 97.1 54 16 124/58 98 12/13/16 08:00 97.2 60 16 136/66 97 12/12/16 22:01 55 14 133/66 99 Room Air 12/12/16 20:00 97.3 60 18 132/66 99 12/12/16 19:45 100 21 12/12/16 18:22 67 20 151/70 100 Room Air I/O 12/12/16 12/12/16 12/12/16 12/13/16 12/13/16 12/13/16 07:00 15:00 23:00 07:00 15:00 23:00 Intake Total 120 ml 999 ml Output Total 400 ml Balance 120 ml 599 ml Intake Oral 120 ml 90 ml IV Total 909 ml Output Urine Total 0 ml Stool Total 400 ml # Voids 2 Imaging Last Impressions Abdomen/Pelvis CT 12/12/16 0000 Signed Impressions: Service Date/Time: Monday, December 12, 2016 18:26 - CONCLUSION: 1. Mural thickening of colon proximal to colostomy with some pericolonic fat stranding most characteristic of a right-sided colitis. 2. Left inguinal hernia containing bowel similar to prior study in November. No bowel obstruction. 3. Atrophic kidneys with numerous nonobstructing calcifications similar to prior exam. Eduardo Cano MD Laboratory Test 12/12/16 12/13/16 12/13/16 17:05 03:33 14:05 White Blood Count 17.2 TH/MM3 12.5 TH/MM3 Red Blood Count 4.41 MIL/MM3 3.81 MIL/MM3 Hemoglobin 13.0 GM/DL 11.1 GM/DL 10.7 GM/DL Hematocrit 38.1 % 32.9 % 32.2 % Mean Corpuscular Volume 86.5 FL 86.6 FL Mean Corpuscular Hemoglobin 29.6 PG 29.3 PG Mean Corpuscular Hemoglobin 34.2 % 33.8 % Concent Red Cell Distribution Width 15.1 % 14.9 % Platelet Count 202 TH/MM3 143 TH/MM3 Mean Platelet Volume 10.5 FL 10.4 FL Neutrophils (%) (Auto) 85.4 % 75.8 % Lymphocytes (%) (Auto) 7.3 % 14.9 % Monocytes (%) (Auto) 6.3 % 8.0 % Eosinophils (%) (Auto) 0.5 % 0.9 % Basophils (%) (Auto) 0.5 % 0.4 % Neutrophils # (Auto) 14.7 TH/MM3 9.5 TH/MM3 Lymphocytes # (Auto) 1.2 TH/MM3 1.9 TH/MM3 Monocytes # (Auto) 1.1 TH/MM3 1.0 TH/MM3 Eosinophils # (Auto) 0.1 TH/MM3 0.1 TH/MM3 Basophils # (Auto) 0.1 TH/MM3 0.1 TH/MM3 CBC Comment DIFF FINAL DIFF FINAL Differential Comment Prothrombin Time 11.2 SEC Prothromb Time International 1.0 RATIO Ratio Activated Partial 29.8 SEC Thromboplast Time Sodium Level 138 MEQ/L 142 MEQ/L Potassium Level 4.0 MEQ/L 3.6 MEQ/L Chloride Level 101 MEQ/L 105 MEQ/L Carbon Dioxide Level 27.6 MEQ/L 27.8 MEQ/L Anion Gap 9 MEQ/L 9 MEQ/L Blood Urea Nitrogen 18 MG/DL 20 MG/DL Creatinine 4.96 MG/DL 5.41 MG/DL Estimat Glomerular Filtration 12 ML/MIN 11 ML/MIN Rate Random Glucose 88 MG/DL 75 MG/DL Calcium Level 9.0 MG/DL 8.1 MG/DL Blood Type O POSITIVE Antibody Screen NEGATIVE Physical Examination HEENT: PERRL; normocephalic; atraumatic; no jaundice. CHEST: CTA CARDIAC: RRR ABDOMEN: Soft, nondistended, nontender; no hepatosplenomegaly; bowel sounds are present in all four quadrants; colostomy bag with brown liquid stool, dark clots, and some red blood. EXTREMITIES: No clubbing, cyanosis, or edema. SKIN: Normal; no rash; no jaundice. SKID MAN: No focal deficits; alert and oriented times three. Assessment and Plan Plan ASSESSMENT - hematochezia - onset 1d ago red blood and liquid stool in colostomy bag. never had colonoscopy - nausea - hx gastroparesis had EGD 07/26/16 --> botox inj, duodenitis, gastritis, esophageal stricture, old PEG site, hiatal hernia. PLAN - Colonoscopy and EGD w/ botox inj - GoLytely - clears today - NPO after midnight - bethanechol - obtain consents - monitor HH - supportive care - further recs to follow This pt seen by myself and Dr Terrell and this note is written on his behalf Anamaria Coffman Dec 13, 2016 16:11
[2016-12-13] MEDS ORDERED: PEG (High)/E-LYTE SOLN 4000 ML BTL PO ONE (16:15)
[2016-12-13] MEDS ORDERED: SODIUM CHLOR 0.9% 1000 ML INJ 1,000 ML IV PRN ×3 (17:35→19:00)
--- NOTE | 2016-12-13 17:44 | PD.CONS ---
HPI Service Nephrology Consult Requested By Dr. Granda Reason for Consult ESRD on HD Primary Care Physician [facility] History of Present Illness The patient is a 56 yo [place] male who is known to our services for ESRD on HD TTS. He presented to the ED 12/12 after receiving 2h of his planned HD with complaint of copious amounts of BRB in colostomy bag. He was having excessive output all day yesterday, but sought treatment when it turned bloody. 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 Denies pain, no fever, some nausea, no vomiting. (Eugenie Britton) Review of Systems Gastrointestinal: COMPLAINS OF: Bloody stools, Diarrhea (Eugenie Britton) Past Family Social History Allergies: Coded Allergies: No Known Allergies (Unverified , 12/12/16) Past Medical History End-stage renal disease Congestive heart failure Hypertension Secondary hyperparathyroidism renal disease Diabetes mellitus Peripheral arterial disease/peripheral vascular disease Anemia renal disease Hx of ischemic colitis requiring partial colectomy and colostomy Hx gangrene right great toe Gastritis/Esophagitis Atherosclerotic vascular disease Depression/Anxiety C Diff history Mitral regurgitation Secondary hyperparathyroidism secondary to Vitamin D Deficiency Gastroparesis Recent bacteremia--source RIJ PermCath Past Surgical History Bypass of the right leg. Amputation of the right big toe. Hemicolectomy/Colostomy. PCI status post stent 2 years ago after an PR. Left av fistula Right tunneled subclavian dialysis catheter placement EGD Reported Medications Protonix (Pantoprazole Sodium) 40 Mg Tab 40 Mg PO BID Lyrica (Pregabalin) 75 Mg Cap 75 Mg PO BID Enalapril (Enalapril Maleate) 10 Mg Tab 10 Mg PO DAILY Norvasc (Amlodipine Besylate) 10 Mg Tab 10 Mg PO DAILY Buspirone (Buspirone HCl) 10 Mg Tab 10 Mg PO BID Metoprolol Tartrate 50 Mg Tab 50 Mg PO BID Active Ordered Medications Current Medications Medications (Trade) Dose Ordered Sig/Hallie Route Start Time Stop Time Status Last Admin (Protonix Inj/NS Inj) 100 ml @ 10 mls/hr Q10H IV 12/12/16 17:00 12/13/16 11:47 (NS Flush) 2 ml UNSCH PRN IV FLUSH 12/12/16 19:30 (NS Flush) 2 ml BID IV FLUSH 12/12/16 21:00 12/12/16 22:05 (Zofran Inj) 4 mg Q6H PRN IV 12/12/16 19:30 12/13/16 17:26 (D50w (Vial) Inj) 50 ml UNSCH PRN IV 12/12/16 19:30 (Glucagon Inj) 1 mg UNSCH PRN OTHER 12/12/16 19:30 (Catapres) 0.1 mg Q6H PRN PO 12/12/16 19:30 (Norvasc) 10 mg DAILY PO 12/13/16 09:00 12/13/16 09:06 (Buspar) 10 mg BID PO 12/12/16 21:00 12/13/16 09:05 (Lopressor) 50 mg BID PO 12/12/16 21:00 12/13/16 09:06 (Lyrica) 75 mg BID PO 12/12/16 21:00 12/13/16 09:05 (Habitrol 21 Mg Patch.24 Hr) 1 patch DAILY T-DERMAL 12/12/16 19:45 12/13/16 09:06 Miscellaneous Information 1 1 HS T-DERMAL 12/12/16 21:00 Ciprofloxacin/ Dextrose 200 ml @ 200 mls/hr Q12H IV 12/13/16 08:00 12/13/16 09:04 (Flagyl 500 Mg Inj) 100 ml @ 100 mls/hr Q8H IV 12/12/16 22:00 12/13/16 13:11 Hydromorphone HCl 1 mg 1 mg Q4H PRN IV PUSH 12/12/16 20:15 12/13/16 17:26 (D5W-NS 500 ml Inj) 500 ml @ 53 mls/hr BOLUS ONCE IV 12/13/16 11:00 12/13/16 20:26 12/13/16 11:00 (Urecholine) 10 mg Q8HR PO 12/13/16 22:00 Family History [place] Social History Single, lives locally. Tobacco abuse Marijuana use Denies EtOH (Eugenie Britton) Physical Exam Vital Signs Vital Signs Date Time Temp Pulse Resp B/P Pulse Ox O2 Delivery O2 Flow Rate FiO2 12/13/16 16:00 97.2 63 16 139/65 100 12/13/16 12:05 96 21 12/13/16 12:00 97.1 54 16 124/58 98 12/13/16 08:00 97.2 60 16 136/66 97 12/12/16 22:01 55 14 133/66 99 Room Air 12/12/16 20:00 97.3 60 18 132/66 99 12/12/16 19:45 100 21 12/12/16 18:22 67 20 151/70 100 Room Air Physical Exam GENERAL: NAD. Sitting in bed eating Jell-O SKIN: Warm and dry. HEAD: Atraumatic. Normocephalic. EYES: Pupils equal and round. No scleral icterus. No injection or drainage. ENT: No nasal bleeding or discharge. Mucous membranes pink and moist. NECK: Trachea midline. No JVD. CARDIOVASCULAR: Regular rate and rhythm. RESPIRATORY: No accessory muscle use. Clear to auscultation. Breath sounds equal bilaterally. GASTROINTESTINAL: Abdomen soft, non-tender, nondistended. Hepatic and splenic margins not palpable. Ostomy present RUQ with remnants of BRB in bag. MUSCULOSKELETAL: Extremities without clubbing, cyanosis, or edema. No obvious deformities. NEUROLOGICAL: Awake and alert. Normal speech. PSYCHIATRIC: Appropriate mood and affect; insight and judgment normal. Laboratory Laboratory Tests Test 12/13/16 12/13/16 03:33 14:05 White Blood Count 12.5 Red Blood Count 3.81 Hemoglobin 11.1 10.7 Hematocrit 32.9 32.2 Mean Corpuscular Volume 86.6 Mean Corpuscular Hemoglobin 29.3 Mean Corpuscular Hemoglobin 33.8 Concent Red Cell Distribution Width 14.9 Platelet Count 143 Mean Platelet Volume 10.4 Neutrophils (%) (Auto) 75.8 Lymphocytes (%) (Auto) 14.9 Monocytes (%) (Auto) 8.0 Eosinophils (%) (Auto) 0.9 Basophils (%) (Auto) 0.4 Neutrophils # (Auto) 9.5 Lymphocytes # (Auto) 1.9 Monocytes # (Auto) 1.0 Eosinophils # (Auto) 0.1 Basophils # (Auto) 0.1 CBC Comment DIFF FINAL Differential Comment Sodium Level 142 Potassium Level 3.6 Chloride Level 105 Carbon Dioxide Level 27.8 Anion Gap 9 Blood Urea Nitrogen 20 Creatinine 5.41 Estimat Glomerular Filtration 11 Rate Random Glucose 75 Calcium Level 8.1 (Eugenie Britton) Result Diagram: 12/13/16 1405 12/13/16 0333 Imaging Last Impressions Abdomen/Pelvis CT 12/12/16 0000 Signed Impressions: Service Date/Time: Monday, December 12, 2016 18:26 - CONCLUSION: 1. Mural thickening of colon proximal to colostomy with some pericolonic fat stranding most characteristic of a right-sided colitis. 2. Left inguinal hernia containing bowel similar to prior study in November. No bowel obstruction. 3. Atrophic kidneys with numerous nonobstructing calcifications similar to prior exam. Eduardo Cano MD (Eugenie Britton) Assessment and Plan Problem List: (1) ESRD on hemodialysis Plan: Continue HD TTS as per outpatient schedule Medications should be adjusted for the patient's ESRD. Avoid gadolinium. (2) HTN (hypertension) Plan: Continue on home regimen (3) Diabetes type 2, uncontrolled Plan: Mgmt as per primary team (4) Acute colitis Plan: Planned for EGD/colonoscopy tomorrow with Botox injection (Eugenie Britton) Assessment and Plan The exam, history, and the medical decision-making described in the above note were completed with the assistance of the ENOCH. I reviewed and agree with the findings presented. (David Kennedy MD) Problem Qualifiers (1) Diabetes type 2, uncontrolled: Qualified Code: E11.22 - Uncontrolled type 2 diabetes mellitus with chronic kidney disease on chronic dialysis, with long-term current use of insulin Eugenie Britton Dec 13, 2016 17:44 David Kennedy MD Dec 14, 2016 17:46
[2016-12-13] MEDS ORDERED: HEPARIN SODIUM - IV 10,000 UNITS/10 ML VIAL PRN (17:45)
[2016-12-13] MEDS ORDERED: NITROGLYCERIN 0.4 MG SL 25 TABS/BTL SL PRN (17:45)
[2016-12-13] MEDS ORDERED: GELATIN 12 MM/7 MM FOAM TOP PRN (17:45)
[2016-12-13] MEDS ORDERED: diphenhydrAMINE HCL 25 MG CAP PO PRN (17:45)
[2016-12-13] MEDS ORDERED: SODIUM CHLORIDE 0.9% FLUSH 10 ML FLUSH IV FLUSH PRN (17:45)
[2016-12-13] MEDS ORDERED: MANNITOL 12.5 GM/50 ML VIAL IV PRN (17:45)
[2016-12-13] MEDS ORDERED: ONDANSETRON HCL 4 MG/2 ML VIAL IV PRN (17:45)
[2016-12-13] MEDS ORDERED: ALBUMIN HUMAN 25% 25 GM/100 ML BAGP IV PRN (17:45)
[2016-12-13] MEDS ORDERED: ACETAMINOPHEN 325 MG TAB PO PRN (17:45)
[2016-12-13] MEDS ORDERED: cloNIDine HCL 0.1 MG TAB PO PRN (17:45)
[2016-12-13] MEDS ORDERED: GENTAMICIN SULFATE (DIALYSIS USE ONLY) 20 MG/2 ML VIAL IV PRN (17:45)
[2016-12-13 18:07] VITALS: O2SAT 99
[2016-12-13 20:05] VITALS: BP 137/65; PULSE 98; RESP 17; TEMP 97.8; O2SAT 98
[2016-12-13 20:59] LABS: HEMATOCRIT 34.6 % (39.0-51.0); REVIEW FLAG FINAL
[2016-12-13] MEDS: REMOVE OLD PATCH T-DERMAL SCH (21:00)
[2016-12-13] MEDS: BETHANECHOL CHL 10 MG TAB PO SCH (21:47)
[2016-12-13 21:54] LABS: BLOOD, URINE MOD (NEG); COMMENT (UR) CULT NOT INDICATED; CULTURE IF INDICATED CULT NOT INDICATED; GLUCOSE,URINE NEG (NEG); KETONE, URINE NEG (NEG); NITRITE,URINE NEG (NEG); PH, URINE 6.5 (5.0-8.5); URINE COLOR YELLOW (YELLW/STRAW)
[2016-12-14 00:08] VITALS: BP 128/63; PULSE 78; RESP 18; TEMP 98.8; O2SAT 98
[2016-12-14 03:54] LABS: AUTOMATED NEUTROPHIL # 7.9 TH/MM3 (1.8-7.7); BASOPHIL % 0.4 % (0.0-2.0); EOSINOPHIL # 0.1 TH/MM3 (0-0.4); EOSINOPHIL % 0.9 % (0.0-4.0); HEMO FLAGS DIFF FINAL; LYMPH % 14.2 % (9.0-44.0); LYMPHOCYTE # 1.5 TH/MM3 (1.0-4.8); MEAN CORPUSCULAR HEMOGLOBIN 29.1 PG (27.0-34.0); MEAN CORPUSCULAR HGB CONC 33.1 % (32.0-36.0); MONO % 9.3 % (0.0-8.0); NEUT % 75.2 % (16.0-70.0); PLATELET COUNT 156 TH/MM3 (150-450); RED BLOOD COUNT 3.97 MIL/MM3 (4.50-5.90); RED CELL DISTRIBUTION WIDTH 15.4 % (11.6-17.2); WHITE BLOOD COUNT 10.6 TH/MM3 (4.0-11.0)
[2016-12-14 04:15] VITALS: BP 151/72; PULSE 74; RESP 17; TEMP 98.4; O2SAT 98
[2016-12-14 04:42] LABS: ALT (GPT) 7 U/L (12-78); ANION GAP 9 MEQ/L (5-15); AST (GOT) 9 U/L (15-37); BICARBONATE 26.3 MEQ/L (21.0-32.0); BLOOD UREA NITROGEN 23 MG/DL (7-18); CHLORIDE 104 MEQ/L (98-107); GLOMERULAR FILTRATION RATE 10 ML/MIN (>89); POTASSIUM 3.8 MEQ/L (3.5-5.1); SODIUM (NA) 139 MEQ/L (136-145)
[2016-12-14 04:43] LABS: ALKALINE PHOSPHATASE 84 U/L (45-117); TOTAL BILIRUBIN ADULT 0.4 MG/DL (0.2-1.0)
[2016-12-14] MEDS: INSULIN ASPART SUPPLEMENTAL SCALE SQ SCH ×4 (04:57→21:00)
[2016-12-14] MEDS ORDERED: CHLORHEXIDINE GLUCONATE 2 % 1 PACK (2 CLOTHS) TOPICAL PRN (05:15)
[2016-12-14] MEDS ORDERED: POVIDONE IODINE 5% (ANTISEPSIS KIT) 4 APPLICATIONS EACH NARE PRN (05:15)
[2016-12-14] MEDS ORDERED: LACTATED RINGER'S 1000 ML IV PRN (05:15)
[2016-12-14] MEDS: metroNIDAZOLE 500 MG INJ 100 ML IV SCH ×3 (05:25→21:40)
[2016-12-14] MEDS: ONDANSETRON HCL 4 MG/2 ML VIAL IV PRN ×2 (05:26→21:50)
[2016-12-14] MEDS: HYDROmorphone HCL PF 1 MG/ML VIAL IV PUSH PRN ×4 (05:27→20:32)
[2016-12-14] MEDS: BETHANECHOL CHL 10 MG TAB PO SCH ×3 (05:32→20:22)
[2016-12-14 08:00] VITALS: BP 151/72; PULSE 80; RESP 17; TEMP 98.6; O2SAT 99
[2016-12-14] MEDS: CIPROFLOXACIN 400 MG PREMIX 200 ML IV SCH ×2 (08:05→20:23)
[2016-12-14] MEDS: PANTOPRAZOLE INJ 80 MG in SODIUM CHLORIDE 0.9% INJ 100 ML IV SCH (08:08)
[2016-12-14] MEDS: NICOTINE 21 MG/24 HR PATCH T-DERMAL SCH (08:10)
[2016-12-14] MEDS: busPIRone HCL 10 MG TAB PO SCH ×2 (08:10→20:22)
[2016-12-14] MEDS: PREGABALIN 75 MG CAP PO SCH ×2 (08:10→20:22)
[2016-12-14] MEDS: METOPROLOL TARTRATE 50 MG TAB PO SCH ×2 (08:11→20:23)
[2016-12-14] MEDS: SODIUM CHLORIDE 0.9% FLUSH 10 ML FLUSH IV FLUSH SCH ×2 (08:11→21:39)
--- NOTE | 2016-12-14 11:32 | HHI.FPPN ---
Subjective Remarks Pt seen and examined this morning during dialysis. Pt reports feeling well. Earlier he had abdominal pain, similar to the pain he was having prior to admission. He was given a dose of Dilaudid. Pain is currently well controlled. He denies chest pain, shortness of breath. He has no other acute concerns. He anticipated having a colonoscopy and EGD later today. (Lior Sebastian MD R3) Objective Vitals Vital Signs Date Time Temp Pulse Resp B/P Pulse Ox O2 Delivery O2 Flow Rate FiO2 12/14/16 08:00 98.6 80 17 151/72 99 12/14/16 04:15 98.4 74 17 151/72 98 12/14/16 00:08 98.8 78 18 128/63 98 12/13/16 20:05 97.8 98 17 137/65 98 12/13/16 18:07 99 21 12/13/16 16:00 97.2 63 16 139/65 100 12/13/16 12:05 96 21 12/13/16 12:00 97.1 54 16 124/58 98 I/O 12/13/16 12/13/16 12/13/16 12/14/16 12/14/16 12/14/16 06:59 14:59 22:59 06:59 14:59 22:59 Intake Total 120 ml 999 ml 480 ml 651 ml Output Total 400 ml 700 ml 1500 ml Balance 120 ml 599 ml -220 ml -849 ml Intake Oral 120 ml 90 ml 480 ml IV Total 909 ml 651 ml Output Urine Total 0 ml 400 ml 500 ml Stool Total 400 ml 300 ml 1000 ml # Voids 2 (Liro Sebastian MD R3) Result Diagram: 12/14/16 0344 12/14/16 0344 Objective Remarks GENERAL: 56yo M laying in bed, in no acute distress HEENT: Atraumatic. Normocephalic. Pupils equal and round. No scleral icterus. No injection or drainage. No nasal bleeding or discharge. Mucous membranes pink and moist. Poor dentition NECK: Trachea midline. No JVD. CARDIOVASCULAR: Regular rate and rhythm. RESPIRATORY: No accessory muscle use. Clear to auscultation. Breath sounds equal bilaterally. GASTROINTESTINAL: Abdomen soft, +Colostomy with about 10cc of yellow/brown liquid. Non-tender, non-distended. MUSCULOSKELETAL: No obvious deformities. No clubbing. No cyanosis. No edema. 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 Left arm with palpable fistula with thrill NEUROLOGICAL: Awake and alert. No obvious cranial nerve deficits. Motor grossly within normal limits. Normal speech. PSYCHIATRIC: Appropriate mood and affect; insight and judgment normal. 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 Being admitted for GI bleed, with bright red blood in colostomy bag, and colitis seen on CT imaging. Discharge Planning Anticipate discharge once GI bleed is stale and patient is cleared by GI. ( Lior Sebastian MD R3) Attending Attestation Patient seen and examined. Case reviewed and discussed with the resident team. Agree with plan of care as discussed with me and documented in the resident note. (Neno Aguilera MD) Problem List: (1) GI bleed Status: Acute Plan: Patient found to have acute GI bleed, with bright red blood mixed with stool in colostomy bag. * GI consulted, recommendations appreciated * IV Protonix drip * Ciprofloxacin 400 mg IV every 12 hours (12/13- ) * Flagyl 500 mg IV every 8 hours (12/13- ) * IV NS fluid at 100 MLS per hour * H and H stable * Anticipate EGD and colonoscopy with possible Botox injection later today (2) Acute colitis Status: Acute Plan: Patient found to have acute colitis on CT * Nothing by mouth * IV fluids as above * Pain control with Dilaudid 1 mg IV every 4 hours (3) ESRD on hemodialysis Status: Chronic Plan: Patient with end-stage renal disease and gets dialysis Sunday * Nephrology consulted for following patient's end-stage renal disease and dialysis (4) Diabetes type 2, uncontrolled Status: Chronic Plan: Patient with type 2 diabetes to dialysis on end-stage renal disease. * Blood glucoses per protocol * Low-dose insulin sliding scale (5) Tobacco abuse counseling Status: Acute Plan: Long-standing history of smoking addiction currently smoking a pack a day * Nicotine patch * Counseled smoking cessation (6) HTN (hypertension) Status: Chronic Plan: Patient with history of hypertension * Clonidine as needed * Continue amlodipine * Continue metoprolol (7) Nutrition, metabolism, and development symptoms Status: Acute Plan: Diet: Nothing by mouth Fluids: LR 30 mL's/hour in anticipation of her GI procedure later today, consider decreasing once patient is no longer nothing by mouth Electrolytes: Continue to monitor DVT prophylaxis: SCDs, pharmacological prophylaxis contraindicated at this time due to GI bleed GI prophylaxis: Protonix drip CODE STATUS: Full code (Lior Sebastian MD R3) Problem Qualifiers (1) Diabetes type 2, uncontrolled: Qualified Code: E11.22 - Uncontrolled type 2 diabetes mellitus with chronic kidney disease on chronic dialysis, with long-term current use of insulin Lior Sebastian MD R3 Dec 14, 2016 11:32 Neno Aguilera MD Dec 15, 2016 14:05 Problem Qualifiers (1) Diabetes type 2, uncontrolled: Qualified Code: E11.22 - Uncontrolled type 2 diabetes mellitus with chronic kidney disease on chronic dialysis, with long-term current use of insulin Lior Sebastian MD R3 Dec 14, 2016 11:32
[2016-12-14] MEDS ORDERED: ePHEDrine/NS 25 MG/5 ML SYR IV ONE (12:00)
[2016-12-14] MEDS ORDERED: ONABOTULINUMTOXINA INJ 100 UNITS/VIAL ONE ×2 (12:45→13:00)
[2016-12-14] MEDS ORDERED: GLUCAGON 1 MG/ML VIAL OTHER ONE (13:00)
[2016-12-14] MEDS ORDERED: DO NOT ADM ANY ANTICOAGULANT DRUGS PRN (13:55)
--- NOTE | 2016-12-14 14:16 | HHI.GIFU ---
Subjective Remarks EGD performed with botox injection. duodenal polyp discovered and biopsied but not removed. Colonoscopy via colostomy showed inflammation due to pressure from hard stool. Biopsy obtained. Objective Vitals I&O Vital Signs Date Time Temp Pulse Resp B/P Pulse Ox O2 Delivery O2 Flow Rate FiO2 12/14/16 08:00 98.6 80 17 151/72 99 12/14/16 04:15 98.4 74 17 151/72 98 12/14/16 00:08 98.8 78 18 128/63 98 12/13/16 20:05 97.8 98 17 137/65 98 12/13/16 18:07 99 21 12/13/16 16:00 97.2 63 16 139/65 100 I/O 12/13/16 12/13/16 12/13/16 12/14/16 12/14/16 12/14/16 07:00 15:00 23:00 07:00 15:00 23:00 Intake Total 120 ml 999 ml 480 ml 651 ml Output Total 400 ml 700 ml 1500 ml 3000 ml Balance 120 ml 599 ml -220 ml -849 ml -3000 ml Intake Oral 120 ml 90 ml 480 ml IV Total 909 ml 651 ml Output Urine Total 0 ml 400 ml 500 ml Stool Total 400 ml 300 ml 1000 ml Hemodialysis 3000 ml # Voids 2 Laboratory Laboratory Tests Test 12/13/16 12/13/16 12/14/16 20:01 21:30 03:44 Hemoglobin 11.2 11.6 Hematocrit 34.6 35.0 Urine Color YELLOW Urine Turbidity CLEAR Urine pH 6.5 Urine Specific [place] 1.013 Urine Protein 100 Urine Glucose (UA) NEG Urine Ketones NEG Urine Occult Blood MOD Urine Nitrite NEG Urine Bilirubin NEG Urine Urobilinogen LESS THAN 2.0 Urine Leukocyte Esterase SMALL Urine RBC 11 Urine WBC 8 Microscopic Urinalysis Comment CULT NOT INDICATED White Blood Count 10.6 Red Blood Count 3.97 Mean Corpuscular Volume 88.0 Mean Corpuscular Hemoglobin 29.1 Mean Corpuscular Hemoglobin 33.1 Concent Red Cell Distribution Width 15.4 Platelet Count 156 Mean Platelet Volume 9.6 Neutrophils (%) (Auto) 75.2 Lymphocytes (%) (Auto) 14.2 Monocytes (%) (Auto) 9.3 Eosinophils (%) (Auto) 0.9 Basophils (%) (Auto) 0.4 Neutrophils # (Auto) 7.9 Lymphocytes # (Auto) 1.5 Monocytes # (Auto) 1.0 Eosinophils # (Auto) 0.1 Basophils # (Auto) 0.0 CBC Comment DIFF FINAL Differential Comment Sodium Level 139 Potassium Level 3.8 Chloride Level 104 Carbon Dioxide Level 26.3 Anion Gap 9 Blood Urea Nitrogen 23 Creatinine 6.11 Estimat Glomerular Filtration 10 Rate Random Glucose 82 Calcium Level 7.8 Total Bilirubin 0.4 Aspartate Amino Transf 9 (AST/SGOT) Alanine Aminotransferase 7 (ALT/SGPT) Alkaline Phosphatase 84 Total Protein 6.3 Albumin 2.9 Physical Exam HEENT: Pupils round and reactive to light; normocephalic; atraumatic; no jaundice. Throat is clear. NECK: Neck is supple, no JVD, no lymphadenopathy. CHEST: Chest is clear to auscultation and percussion. CARDIAC: Regular rate and rhythm with no murmur gallop or rubs. ABDOMEN: Soft, nondistended, nontender; no hepatosplenomegaly; bowel sounds are present in all four quadrants. EXTREMITIES: No clubbing, cyanosis, or edema. SKIN: Normal; no rash; no jaundice. MIRROR FRAMER: No focal deficits; alert and oriented times three. Assessment and Plan Plan ASSESSMENT - hematochezia - onset 1d ago red blood and liquid stool in colostomy bag. never had colonoscopy - nausea - hx gastroparesis had EGD 07/26/16 --> botox inj, duodenitis, gastritis, esophageal stricture, old PEG site, hiatal hernia. EGD and colonoscopy performed. No further bleeding. OK to give renal diet. PLAN Renal diet. OK for discharge. See recommendations in report. Yonas Terrell MD Dec 14, 2016 14:16
[2016-12-14] MEDS ORDERED: PROPOFOL 200 MG/20 ML AMP IV ONE (15:02)
[2016-12-14 16:00] VITALS: BP 147/70; PULSE 76; RESP 18; TEMP 97; O2SAT 99
[2016-12-14 17:08] LABS: HEMATOCRIT 34.6 % (39.0-51.0); REVIEW FLAG FINAL
[2016-12-14 17:35] VITALS: O2SAT 99
--- NOTE | 2016-12-14 17:48 | HHI.NPPN ---
Subjective History of Present Illness The patient is a 56 yo [place] male who is known to our services for ESRD on HD TTS. He presented to the ED 12/12 after receiving 2h of his planned HD with complaint of copious amounts of BRB in colostomy bag. He was having excessive output all day yesterday, but sought treatment when it turned bloody. 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 Interval History Patient was seen postprocedure and dialysis today. Indicating to me that he felt well with good appetite. Objective Data Data 12/13/16 12/14/16 19:00 07:00 Intake Total 999 ml 1131 ml Output Total 400 ml 2200 ml Balance 599 ml -1069 ml Intake Oral 90 ml 480 ml IV Total 909 ml 651 ml Output Urine Total 0 ml 900 ml Stool Total 400 ml 1300 ml # Voids 2 Vital Signs Date Time Temp Pulse Resp B/P Pulse Ox O2 Delivery O2 Flow Rate FiO2 12/14/16 17:35 99 Nasal Cannula 2.00 12/14/16 16:00 97.0 76 18 147/70 99 12/14/16 14:20 68 16 138/65 98 Room Air 12/14/16 14:00 71 16 103/60 99 Room Air 12/14/16 13:48 98.3 76 16 102/60 99 Nasal Cannula 2 12/14/16 08:00 98.6 80 17 151/72 99 12/14/16 04:15 98.4 74 17 151/72 98 12/14/16 00:08 98.8 78 18 128/63 98 12/13/16 20:05 97.8 98 17 137/65 98 12/13/16 18:07 99 21 -: 12/14/16 1639 12/14/16 0344 Medication Review Current Medications Sodium Chloride 2 ml 2 ml UNSCH PRN IVF FLUSH AFTER USING IV ACCESS; Start 12/12 at 17:00; Stop 12/12/16 at 21:07; Status DC Pantoprazole Sodium 80 mg/ Sodium Chloride 35 ml @ 420 mls/hr ONCE ONCE IV Last administered on 12/12/16t 17:57; Start 12/12/16 at 17:00; Stop 12/12/16 at 17: 04; Status DC Pantoprazole Sodium/Sodium Chloride (Protonix Inj/NS Inj) 100 ml @ 10 mls/hr Q10H IV Last administered on 12/14/16 08:08; Start 12/12/16 at 17:00; Stop 02/20 at 16:22; Status DC Morphine Sulfate 2 mg 2 mg ONCE ONCE IV PUSH Last administered on 12/12/16 18: 20; Start 12/12/16 at 18:00; Stop 12/12/16 at 18:01; Status DC Ciprofloxacin/ Dextrose 200 ml @ 200 mls/hr ONCE ONCE IV Last administered on 12/12/16 20:20; Start 12/12/16 at 19:15; Stop 12/12/16 at 20:14; Status DC Metronidazole (Flagyl 500 Mg Inj) 100 ml @ 100 mls/hr ONCE ONCE IV ; Start 12/12/16 at 19:15; Stop 12/12/16 at 20:14; Status Cancel Morphine Sulfate (Morphine Inj) 4 mg ONCE ONCE IV PUSH Last administered on 20:05; Start 12/12/16 at 19:15; Stop 12/12/16 at 19:16; Status DC Sodium Chloride (NS Flush) 2 ml UNSCH PRN IV FLUSH FLUSH AFTER USING IV ACCESS ; Start 12/12/16 at 19:30 Sodium Chloride (NS Flush) 2 ml BID IV FLUSH Last administered on 12/13/16 21: 44; Start 12/12/16 at 21:00 Ondansetron HCl 4 mg 4 mg Q6H PRN IV NAUSEA Last administered on 12/14/16 05: 26; Start 12/12/16 at 19:30 Pantoprazole Sodium/Sodium Chloride (Protonix Inj/NS Inj) 100 ml @ 10 mls/hr CONTINUOUS IV ; Start 12/12/16 at 21:00; Status Cancel Dextrose (D50w (Vial) Inj) 50 ml UNSCH PRN IV HYPOGLYCEMIA-SEE COMMENTS; Start 12/12/16 at 19:30 Glucagon (Glucagon Inj) 1 mg UNSCH PRN OTHER HYPOGLYCEMIA-SEE COMMENTS; Start 12/12/16 at 19:30 Insulin Aspart (NovoLOG SUPPLEMENTAL SCALE) 1 ACHS SLIDING SCALE SQ ; Start 12/12/16 at 21:00 Clonidine (Catapres) 0.1 mg Q6H PRN PO SBP> OR = 180, DBP> OR = 100; Start 12/12 at 19:30 Amlodipine Besylate (Norvasc) 10 mg DAILY PO Last administered on 12/13/16 09: 06; Start 12/13/16 at 09:00 Buspirone HCl (Buspar) 10 mg BID PO Last administered on 12/14/16 08:10; Start 12/12/16 at 21:00 Metoprolol Tartrate (Lopressor) 50 mg BID PO Last administered on 12/13/16 21: 41; Start 12/12/16 at 21:00 Pregabalin (Lyrica) 75 mg BID PO Last administered on 12/14/16 08:10; Start at 21:00 Nicotine (Habitrol 21 Mg Patch.24 Hr) 1 patch DAILY T-DERMAL Last administered on 12/14/16 08:10; Start 12/12/16 at 19:45 Miscellaneous Information 1 1 HS T-DERMAL Last administered on 12/13/16 21:00; Start 12/12/16 at 21:00 Ciprofloxacin/ Dextrose 200 ml @ 200 mls/hr Q12H IV Last administered on 08:05; Start 12/13/16 at 08:00 Metronidazole 100 ml @ 100 mls/hr Q8H IV Last administered on 12/14/16 15:23 ; Start 12/12/16 at 22:00 Sodium Chloride (NS 1000 ml Inj) 1,000 ml @ 100 mls/hr Q10H IV Last administered on 12/12/16 22:05; Start 12/12/16 at 20:15; Stop 12/13/16 at 10:55; Status DC Hydromorphone HCl 1 mg 1 mg Q4H PRN IV PUSH PAIN1-10 Last administered on 16:26; Start 12/12/16 at 20:15 Dextrose/Sodium Chloride (D5W-NS 500 ml Inj) 500 ml @ 53 mls/hr BOLUS ONCE IV Last administered on 12/13/16 11:00; Start 12/13/16 at 11:00; Stop 12/13/16 at 20:26; Status DC Bethanechol Chloride (Urecholine) 10 mg Q8HR PO Last administered on 12/14/16 15:23; Start 12/13/16 at 22:00 Polyethylene Glycol/ Electrolytes 4000 ml 4,000 ml ONCE ONCE PO Last administered on 12/13/16 16:28; Start 12/13/16 at 16:15; Stop 12/13/16 at 16:22; Status DC Sodium Chloride 1,000 ml @ 0 mls/hr Q0M PRN IV For Prime & Rinse Back; Start at 19:00 Sodium Chloride 1,000 ml @ 200 mls/hr Q5H PRN IV WITH DIALYSIS; Start 12/13/16 at 17:35 Sodium Chloride (NS 1000 ml Inj) 1,000 ml @ 0 mls/hr Q0M PRN IV WITH DIALYSIS; Start 12/13/16 at 17:35 Mannitol (Mannitol Inj) 12.5 gm UNSCH PRN IV WITH DIALYSIS; Start 12/13/16 at 17 :45 Albumin Human (Albumin 25% Inj) 25 gm UNSCH PRN IV WITH DIALYSIS; Start at 17:45 Sodium Chloride (NS Flush) 5 ml UNSCH PRN IV FLUSH WITH DIALYSIS; Start at 17:45 Heparin Sodium (Porcine) (Heparin Inj) UNSCH PRN .XX WITH DIALYSIS; Start 12/13 at 17:45 Gentamicin Sulfate (Gentamicin (Dialysis) Inj) 20 mg UNSCH PRN IV WITH DIALYSIS Last administered on 12/14/16 12:54; Start 12/13/16 at 17:45 Ondansetron HCl (Zofran Inj) 4 mg UNSCH PRN IV WITH DIALYSIS; Start 12/13/16 at 17:45 Acetaminophen (Tylenol) 650 mg UNSCH PRN PO for headach, temp > 101F; Start 12/13/16 at 17:45 Diphenhydramine HCl (Benadryl) 25 mg UNSCH PRN PO for hives/itching/anaphylaxis ; Start 12/13/16 at 17:45 Nitroglycerin (Nitrostat Sl) 0.4 mg UNSCH PRN SL CHEST PAIN; Start 12/13/16 at 17:45 Clonidine (Catapres) 0.1 mg UNSCH PRN PO for BP > 180/100 X 2 readings; Start 12/13/16 at 17:45 Gelatin 1 foam 1 foam UNSCH PRN TOP SEE LABEL COMMENTS; Start 12/13/16 at 17:45 Lactated Ringer's (Lr 1000 ml Inj) 1,000 ml @ 30 mls/hr Q24H PRN IV SEE LABEL COMMENTS; Start 12/14/16 at 05:15; Stop 12/17/16 at 05:14 Povidone Iodine (Betadine 5% Antisepsis Kit) 1 applic OVERLAY PLASTICIAN PRN EACH NARE SEE LABEL COMMENTS; Start 12/14/16 at 05:15; Stop 12/17/16 at 05:14 Chlorhexidine Gluconate (Chlorhexidine 2% Cloth) 3 pack OVERLAY PLASTICIAN PRN TOPICAL SEE LABEL COMMENTS; Start 12/14/16 at 05:15; Stop 12/17/16 at 05:14 Onabotulinumtoxina (Botox Inj) 100 units ONCE ONCE .XX ; Start 12/14/16 at 12: 45; Stop 12/14/16 at 12:46; Status DC Miscellaneous Information ALL NURSING DEPARTME... UNSCH PRN .XX SEE LABEL COMMENTS; Start 12/14/16 at 13:55; Stop 12/15/16 at 13:54 Onabotulinumtoxina (Botox Inj) 100 units STK-MED ONCE .XX Last administered on 12/14/16 13:00; Start 12/14/16 at 13:00; Stop 12/14/16 at 14:54; Status DC Glucagon (Glucagon Inj) 1 mg STK-MED ONCE OTHER Last administered on 12/14/16 13:00; Start 12/14/16 at 13:00; Stop 12/14/16 at 14:54; Status DC Propofol (Diprivan 200 Mg/20 ml Inj) 380 mg STK-MED ONCE IV ; Start 12/14/16 at 15:02; Stop 12/14/16 at 15:03; Status DC Pantoprazole Sodium (Protonix) 40 mg DAILY PO ; Start 12/15/16 at 09:00 Physical Exam General Appearance: No Acute Distress, Comfortable Eyes Eye Exam: Sclera White Pulmonary Resp Exam: Clear Bilaterally, Breath Sounds Equal, No Distress Cardiology CV Exam: Regular, Normal Sinus Rhythm Gastrointestinal/Abdomen GI Exam: Soft, Non-Tender Integumentary Skin Exam: Clear, Warm, Dry Extremeties Extremities Exam: No Edema Assessment/Plan Discussed Condition With: Patient Problem List: (1) ESRD on hemodialysis Plan: Continue HD TTS as per outpatient schedule. Hemodialysis completed today without difficulty. Noted patient underwent endoscopy with repeat Botox injection and biopsy of a duodenal polyp. Also noted patient developed some inflammation at his ostomy site related to passage of hard stool. Patient stable from a renal point of view for discharge planning. Medications should be adjusted for the patient's ESRD. Avoid gadolinium. (2) HTN (hypertension) Plan: Continue on home regimen (3) Diabetes type 2, uncontrolled Plan: Mgmt as per primary team Problem Qualifiers (1) Diabetes type 2, uncontrolled: Qualified Code: E11.22 - Uncontrolled type 2 diabetes mellitus with chronic kidney disease on chronic dialysis, with long-term current use of insulin David Kennedy MD Dec 14, 2016 17:48
[2016-12-14 20:00] VITALS: BP 157/71; PULSE 87; RESP 18; TEMP 99.8; O2SAT 99
[2016-12-14 20:29] LABS: HEMATOCRIT 36.1 % (39.0-51.0); REVIEW FLAG FINAL
[2016-12-14] MEDS: REMOVE OLD PATCH T-DERMAL SCH (21:00)
[2016-12-15] VITALS: BP 109/55; PULSE 71; RESP 18; TEMP 97.9; O2SAT 99
[2016-12-15] MEDS: HYDROmorphone HCL PF 1 MG/ML VIAL IV PUSH PRN ×3 (00:40→09:16)
[2016-12-15 04:13] LABS: AUTOMATED NEUTROPHIL # 6.8 TH/MM3 (1.8-7.7); BASOPHIL % 0.4 % (0.0-2.0); EOSINOPHIL # 0.1 TH/MM3 (0-0.4); EOSINOPHIL % 0.8 % (0.0-4.0); HEMATOCRIT 31.5 % (39.0-51.0); HEMO FLAGS DIFF FINAL; LYMPHOCYTE # 1.1 TH/MM3 (1.0-4.8); MEAN CELL VOLUME 86.4 FL (80.0-100.0); MEAN CORPUSCULAR HEMOGLOBIN 29.5 PG (27.0-34.0); MEAN CORPUSCULAR HGB CONC 34.2 % (32.0-36.0); NEUT % 75.8 % (16.0-70.0); PLATELET COUNT 144 TH/MM3 (150-450); RED BLOOD COUNT 3.65 MIL/MM3 (4.50-5.90); RED CELL DISTRIBUTION WIDTH 14.8 % (11.6-17.2); WHITE BLOOD COUNT 8.9 TH/MM3 (4.0-11.0)
[2016-12-15 04:30] LABS: ALT (GPT) LESS THAN 6 U/L (12-78); ANION GAP 8 MEQ/L (5-15); AST (GOT) 5 U/L (15-37); BICARBONATE 30.3 MEQ/L (21.0-32.0); BLOOD UREA NITROGEN 25 MG/DL (7-18); CHLORIDE 99 MEQ/L (98-107); GLOMERULAR FILTRATION RATE 11 ML/MIN (>89); POTASSIUM 3.4 MEQ/L (3.5-5.1); SODIUM (NA) 137 MEQ/L (136-145)
[2016-12-15 04:32] LABS: ALKALINE PHOSPHATASE 73 U/L (45-117); TOTAL BILIRUBIN ADULT 0.3 MG/DL (0.2-1.0)
[2016-12-15] MEDS: BETHANECHOL CHL 10 MG TAB PO SCH ×2 (05:12→14:09)
[2016-12-15] MEDS: metroNIDAZOLE 500 MG INJ 100 ML IV SCH ×2 (05:12→14:09)
[2016-12-15] MEDS: INSULIN ASPART SUPPLEMENTAL SCALE SQ SCH ×2 (05:15→11:00)
[2016-12-15 08:00] VITALS: BP 175/79; PULSE 84; RESP 18; TEMP 96.9; O2SAT 100
[2016-12-15] MEDS ORDERED: PERC5TAB12 PO (08:58)
[2016-12-15] MEDS ORDERED: PANTOPRAZOLE SOD 40 MG DELAYED RELEASE TAB PO SCH (09:00)
[2016-12-15] MEDS: SODIUM CHLORIDE 0.9% FLUSH 10 ML FLUSH IV FLUSH SCH (09:15)
[2016-12-15] MEDS: CIPROFLOXACIN 400 MG PREMIX 200 ML IV SCH (09:15)
[2016-12-15] MEDS: METOPROLOL TARTRATE 50 MG TAB PO SCH (09:16)
[2016-12-15] MEDS: PREGABALIN 75 MG CAP PO SCH (09:16)
[2016-12-15] MEDS: busPIRone HCL 10 MG TAB PO SCH (09:16)
[2016-12-15] MEDS: NICOTINE 21 MG/24 HR PATCH T-DERMAL SCH (09:22)
--- NOTE | 2016-12-15 11:34 | HHI.FPPN ---
Subjective Remarks Patient seen and examined today. No acute events overnight. Patient notes continued abdominal pain, however may be mildly improved from yesterday. No change in location or quality. He stated that he has not had any blood in his colostomy for more than a day at this point. No other complaints of nausea, vomiting, fever, chills, chest pain, shortness of breath, change in urinary habits. (Jorge Corona MD R1) Objective Vitals Vital Signs Date Time Temp Pulse Resp B/P Pulse Ox O2 Delivery O2 Flow Rate FiO2 12/15/16 08:00 96.9 84 18 175/79 100 12/15/16 00:00 97.9 71 18 109/55 99 12/14/16 20:00 99.8 87 18 157/71 99 12/14/16 17:35 99 Nasal Cannula 2.00 12/14/16 16:00 97.0 76 18 147/70 99 12/14/16 14:20 68 16 138/65 98 Room Air 12/14/16 14:00 71 16 103/60 99 Room Air 12/14/16 13:48 98.3 76 16 102/60 99 Nasal Cannula 2 I/O 12/14/16 12/14/16 12/14/16 12/15/16 12/15/16 12/15/16 07:00 15:00 23:00 07:00 15:00 23:00 Intake Total 651 ml 150 ml 420 ml 0 ml 290 ml Output Total 1500 ml 3000 ml 250 ml Balance -849 ml -2850 ml 420 ml -250 ml 290 ml Intake Oral 0 ml 320 ml 0 ml IV Total 651 ml 50 ml 100 ml 290 ml Other 100 ml Output Urine Total 500 ml 0 ml 250 ml Stool Total 1000 ml Hemodialysis 3000 ml Estimated Blood Loss 0 ml # Voids 0 # Bowel Movements 0 0 0 (Jorge Corona MD R1) Result Diagram: 12/15/16 0400 12/15/16 0400 Imaging Last Impressions Abdomen/Pelvis CT 12/12/16 0000 Signed Impressions: Service Date/Time: Monday, December 12, 2016 18:26 - CONCLUSION: 1. Mural thickening of colon proximal to colostomy with some pericolonic fat stranding most characteristic of a right-sided colitis. 2. Left inguinal hernia containing bowel similar to prior study in November. No bowel obstruction. 3. Atrophic kidneys with numerous nonobstructing calcifications similar to prior exam. Eduardo Cano MD Objective Remarks GENERAL: 56yo M laying in bed, in no acute distress HEENT: Atraumatic. Normocephalic. Pupils equal and round. No scleral icterus. No injection or drainage. No nasal bleeding or discharge. Mucous membranes pink and moist. Poor dentition NECK: Trachea midline. No JVD. CARDIOVASCULAR: Regular rate and rhythm. RESPIRATORY: No accessory muscle use. Clear to auscultation. Breath sounds equal bilaterally. GASTROINTESTINAL: Abdomen soft, +Colostomy with yellow/brown liquid, no gross blood present. Non-tender, non-distended. MUSCULOSKELETAL: No obvious deformities. No clubbing. No cyanosis. No edema. 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 Left arm with palpable fistula with thrill NEUROLOGICAL: Awake and alert. No obvious cranial nerve deficits. Motor grossly within normal limits. Normal speech. PSYCHIATRIC: Appropriate mood and affect; insight and judgment normal. Procedures Colonoscopy with botox injection 12/15/16 Medications and IVs Current Medications Medications (Trade) Dose Ordered Sig/Hallie Route Start Time Stop Time Status Last Admin (NS Flush) 2 ml UNSCH PRN IV FLUSH 12/12/16 19:30 (NS Flush) 2 ml BID IV FLUSH 12/12/16 21:00 12/15/16 09:15 (Zofran Inj) 4 mg Q6H PRN IV 12/12/16 19:30 12/14/16 21:50 (D50w (Vial) Inj) 50 ml UNSCH PRN IV 12/12/16 19:30 (Glucagon Inj) 1 mg UNSCH PRN OTHER 12/12/16 19:30 (Catapres) 0.1 mg Q6H PRN PO 12/12/16 19:30 (Norvasc) 10 mg DAILY PO 12/13/16 09:00 12/15/16 09:16 (Buspar) 10 mg BID PO 12/12/16 21:00 12/15/16 09:16 (Lopressor) 50 mg BID PO 12/12/16 21:00 12/15/16 09:16 (Lyrica) 75 mg BID PO 12/12/16 21:00 12/15/16 09:16 (Habitrol 21 Mg Patch.24 Hr) 1 patch DAILY T-DERMAL 12/12/16 19:45 12/15/16 09:22 Miscellaneous Information 1 1 HS T-DERMAL 12/12/16 21:00 12/13/16 21:00 Ciprofloxacin/ Dextrose 200 ml @ 200 mls/hr Q12H IV 12/13/16 08:00 12/15/16 09:15 (Flagyl 500 Mg Inj) 100 ml @ 100 mls/hr Q8H IV 12/12/16 22:00 12/15/16 05:12 (Dilaudid Pf Inj) 1 mg Q4H PRN IV PUSH 12/12/16 20:15 12/15/16 09:16 Bethanechol Chloride 10 mg 10 mg Q8HR PO 12/13/16 22:00 12/15/16 05:12 Sodium Chloride 1,000 ml @ 0 mls/hr Q0M PRN IV 12/13/16 19:00 Sodium Chloride 1,000 ml @ 200 mls/hr Q5H PRN IV 12/13/16 17:35 (NS 1000 ml Inj) 1,000 ml @ 0 mls/hr Q0M PRN IV 12/13/16 17:35 (Mannitol Inj) 12.5 gm UNSCH PRN IV 12/13/16 17:45 (Albumin 25% Inj) 25 gm UNSCH PRN IV 12/13/16 17:45 (NS Flush) 5 ml UNSCH PRN IV FLUSH 12/13/16 17:45 (Heparin Inj) UNSCH PRN .XX 12/13/16 17:45 (Gentamicin (Dialysis) Inj) 20 mg UNSCH PRN IV 12/13/16 17:45 12/14/16 12:54 (Zofran Inj) 4 mg UNSCH PRN IV 12/13/16 17:45 (Tylenol) 650 mg UNSCH PRN PO 12/13/16 17:45 (Benadryl) 25 mg UNSCH PRN PO 12/13/16 17:45 (Nitrostat Sl) 0.4 mg UNSCH PRN SL 12/13/16 17:45 (Catapres) 0.1 mg UNSCH PRN PO 12/13/16 17:45 Gelatin 1 foam 1 foam UNSCH PRN TOP 12/13/16 17:45 (Lr 1000 ml Inj) 1,000 ml @ 30 mls/hr Q24H PRN IV 12/14/16 05:15 12/17/16 05:14 Miscellaneous Information ALL NURSING DEPARTME... UNSCH PRN .XX 12/14/16 13:55 12/15/16 13:54 (Protonix) 40 mg DAILY PO 12/15/16 09:00 12/15/16 09:16 (Jorge Corona MD R1) A/P Assessment and Plan This a 56-year-old male with extensive past history significant for hypertension, diabetes, end-stage renal disease on dialysis, ischemic bowel resulting in colectomy and colostomy bag placement, and MA. Being admitted for GI bleed, with bright red blood in colostomy bag, and colitis seen on CT imaging. Discharge Planning Anticipate discharge once antibiotics discussed with GI (Jorge Corona MD R1 ) Attending Attestation Patient seen and examined. Case reviewed and discussed with the resident team. Agree with plan of care as discussed with me and documented in the resident note. (Neno Aguilera MD) Problem List: (1) GI bleed Status: Acute Plan: Patient found to have acute GI bleed, with bright red blood mixed with stool in colostomy bag. No blood for >24 hours * GI consulted, recommendations appreciated * IV Protonix drip * Ciprofloxacin 400 mg IV every 12 hours (12/13- ) * Flagyl 500 mg IV every 8 hours (12/13- ) * IV NS fluid at 100 MLS per hour * H and H stable * EGD with botox performed 12/14/16, polyps biopsied, results pending (2) Acute colitis Status: Acute Plan: Patient found to have acute colitis on CT * Renal Diet * IV fluids as above * Pain control with Dilaudid 1 mg IV every 4 hours (3) ESRD on hemodialysis Status: Chronic Plan: Patient with end-stage renal disease and gets dialysis Sunday * Nephrology consulted for following patient's end-stage renal disease and dialysis (4) Diabetes type 2, uncontrolled Status: Chronic Plan: Patient with type 2 diabetes to dialysis on end-stage renal disease. * Blood glucoses per protocol * Low-dose insulin sliding scale (5) Tobacco abuse counseling Status: Acute Plan: Long-standing history of smoking addiction currently smoking a pack a day * Nicotine patch * Counseled smoking cessation (6) HTN (hypertension) Status: Chronic Plan: Patient with history of hypertension * Clonidine as needed * Continue amlodipine * Continue metoprolol (7) Nutrition, metabolism, and development symptoms Status: Acute Plan: Diet: Nothing by mouth Fluids: LR 30 mL's/hour in anticipation of her GI procedure later today, consider decreasing once patient is no longer nothing by mouth Electrolytes: Continue to monitor DVT prophylaxis: SCDs, pharmacological prophylaxis contraindicated at this time due to GI bleed GI prophylaxis: Protonix drip CODE STATUS: Full code (Jorge Corona MD R1) Problem Qualifiers (1) Diabetes type 2, uncontrolled: Qualified Code: E11.22 - Uncontrolled type 2 diabetes mellitus with chronic kidney disease on chronic dialysis, with long-term current use of insulin Jorge Corona MD R1 Dec 15, 2016 11:34 Neno Aguilera MD Dec 15, 2016 14:07
[2016-12-15 12:00] VITALS: BP 116/57; PULSE 60; RESP 16; TEMP 98.4; O2SAT 99
--- NOTE | 2016-12-15 12:26 | HHI.GIFU ---
Subjective Remarks Resting in bed. Tolerating diet. No nausea today, getting ready to eat lunch. No pain. No bleeding. Colostomy with yellow liquid stool. Objective Vitals I&O Vital Signs Date Time Temp Pulse Resp B/P Pulse Ox O2 Delivery O2 Flow Rate FiO2 12/15/16 08:00 96.9 84 18 175/79 100 12/15/16 00:00 97.9 71 18 109/55 99 12/14/16 20:00 99.8 87 18 157/71 99 12/14/16 17:35 99 Nasal Cannula 2.00 12/14/16 16:00 97.0 76 18 147/70 99 12/14/16 14:20 68 16 138/65 98 Room Air 12/14/16 14:00 71 16 103/60 99 Room Air 12/14/16 13:48 98.3 76 16 102/60 99 Nasal Cannula 2 I/O 12/14/16 12/14/16 12/14/16 12/15/16 12/15/16 12/15/16 07:00 15:00 23:00 07:00 15:00 23:00 Intake Total 651 ml 150 ml 420 ml 0 ml 290 ml Output Total 1500 ml 3000 ml 250 ml Balance -849 ml -2850 ml 420 ml -250 ml 290 ml Intake Oral 0 ml 320 ml 0 ml IV Total 651 ml 50 ml 100 ml 290 ml Other 100 ml Output Urine Total 500 ml 0 ml 250 ml Stool Total 1000 ml Hemodialysis 3000 ml Estimated Blood Loss 0 ml # Voids 0 # Bowel Movements 0 0 0 Laboratory Laboratory Tests Test 12/14/16 12/14/16 12/15/16 16:39 19:02 04:00 Hemoglobin 11.8 11.9 10.8 Hematocrit 34.6 36.1 31.5 White Blood Count 8.9 Red Blood Count 3.65 Mean Corpuscular Volume 86.4 Mean Corpuscular Hemoglobin 29.5 Mean Corpuscular Hemoglobin 34.2 Concent Red Cell Distribution Width 14.8 Platelet Count 144 Mean Platelet Volume 10.1 Neutrophils (%) (Auto) 75.8 Lymphocytes (%) (Auto) 12.0 Monocytes (%) (Auto) 11.0 Eosinophils (%) (Auto) 0.8 Basophils (%) (Auto) 0.4 Neutrophils # (Auto) 6.8 Lymphocytes # (Auto) 1.1 Monocytes # (Auto) 1.0 Eosinophils # (Auto) 0.1 Basophils # (Auto) 0.0 CBC Comment DIFF FINAL Differential Comment Sodium Level 137 Potassium Level 3.4 Chloride Level 99 Carbon Dioxide Level 30.3 Anion Gap 8 Blood Urea Nitrogen 25 Creatinine 5.59 Estimat Glomerular Filtration 11 Rate Random Glucose 118 Calcium Level 7.8 Total Bilirubin 0.3 Aspartate Amino Transf 5 (AST/SGOT) Alanine Aminotransferase LESS THAN 6 (ALT/SGPT) Alkaline Phosphatase 73 Total Protein 6.1 Albumin 2.7 Imaging Last Impressions Abdomen/Pelvis CT 12/12/16 0000 Signed Impressions: Service Date/Time: Monday, December 12, 2016 18:26 - CONCLUSION: 1. Mural thickening of colon proximal to colostomy with some pericolonic fat stranding most characteristic of a right-sided colitis. 2. Left inguinal hernia containing bowel similar to prior study in November. No bowel obstruction. 3. Atrophic kidneys with numerous nonobstructing calcifications similar to prior exam. Eduardo Cano MD Physical Exam HEENT: Normocephalic; atraumatic; no jaundice. CHEST: CTA CARDIAC: RRR ABDOMEN: Soft, nondistended, nontender; no hepatosplenomegaly; bowel sounds are present in all four quadrants. Right sided colostomy with yellowish liquid stool EXTREMITIES: No clubbing, cyanosis, or edema. SKIN: Normal; no rash; no jaundice. 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 Assessment and Plan Plan ASSESSMENT - Hematochezia. Abdomen/Pelvis CT (12/12/16)---> 1. Mural thickening of colon proximal to colostomy with some pericolonic fat stranding most characteristic of a right-sided colitis. 2. Left inguinal hernia containing bowel similar to prior study in November. No bowel obstruction. 3. Atrophic kidneys with numerous nonobstructing calcifications similar to prior exam. EGD with botox injections, colonoscopy (12/14/16)-----> EGD performed with botox injection. duodenal polyp discovered and biopsied but not removed; colonoscopy via colostomy showed inflammation due to pressure from hard stool. Biopsy obtained. Pathology pending. No further bleeding. No n/v. No abdominal pain. Tolerating diet. Yellowish stool. HH stable 10.8/31.5. - Gastroparesis, Nausea. S/P EGD with botox injection (12/14/16). PPI, Bethanechol. No nausea, abdominal pain. Tolerating diet. - Hx ischemic colitis/perforation. S/P colostomy. - ESRD, HD per renal - DM, HTN per attending PLAN: - JOSEPH - Await pathology - PPI - Bethanechol - FU YESY 2 weeks - Okay to d/c home from GI standpoint - Pt seen and examined by Dr. Terrell and myself and this note is written on his behalf Mya Christian Dec 15, 2016 12:26
[2016-12-15 12:37] VITALS: O2SAT 95
[2016-12-15] MEDS ORDERED: METR-1 PO (14:23)
[2016-12-15] MEDS ORDERED: BETH10 PO (14:23)
--- NOTE | 2016-12-15 14:24 | HHI.DCPOC ---
Discharge Care Plan Diagnosis: (1) GI bleed (2) Acute colitis (3) CKD (chronic kidney disease) (4) HTN (hypertension) Goals to Promote Your Health * To prevent worsening of your condition and complications * To maintain your health at the optimal level Directions to Meet Your Goals Take your medications as prescribed Follow your dietary instruction Follow activity as directed Keep your appointments as scheduled Take your immunizations and boosters as scheduled If your symptoms worsen call your PCP, if no PCP go to Urgent Care Center or Emergency Room Smoking is Dangerous to Your Health. Avoid second hand smoke Call the 24-hour hour crisis hotline for domestic abuse at Jorge Corona MD R1 Dec 15, 2016 14:24
--- NOTE | 2016-12-15 14:24 | HHI.DS ---
Discharge Summary Admission Date Dec 12, 2016 at 19:11 Discharge Date: Dec 15, 2016 Admitting Diagnosis Colitis, GI bleed (1) GI bleed Diagnosis: Principal Plan: Patient found to have acute GI bleed, with bright red blood mixed with stool in colostomy bag. No blood for >24 hours * GI consulted, recommendations appreciated * IV Protonix drip * Ciprofloxacin 400 mg IV every 12 hours (12/13- ) * Flagyl 500 mg IV every 8 hours (12/13- ) * IV NS fluid at 100 MLS per hour * H and H stable * EGD with botox performed 12/14/16, polyps biopsied, results pending (2) Acute colitis Diagnosis: Principal Plan: Patient found to have acute colitis on CT * Renal Diet * IV fluids as above * Pain control with Dilaudid 1 mg IV every 4 hours (3) ESRD on hemodialysis Diagnosis: Secondary Plan: Patient with end-stage renal disease and gets dialysis Sunday * Nephrology consulted for following patient's end-stage renal disease and dialysis (4) Diabetes type 2, uncontrolled Diagnosis: Secondary Plan: Patient with type 2 diabetes to dialysis on end-stage renal disease. * Blood glucoses per protocol * Low-dose insulin sliding scale (5) Tobacco abuse counseling Diagnosis: Secondary Plan: Long-standing history of smoking addiction currently smoking a pack a day * Nicotine patch * Counseled smoking cessation (6) HTN (hypertension) Diagnosis: Secondary Plan: Patient with history of hypertension * Clonidine as needed * Continue amlodipine * Continue metoprolol (7) Nutrition, metabolism, and development symptoms Diagnosis: Secondary Plan: Diet: Nothing by mouth Fluids: LR 30 mL's/hour in anticipation of her GI procedure later today, consider decreasing once patient is no longer nothing by mouth Electrolytes: Continue to monitor DVT prophylaxis: SCDs, pharmacological prophylaxis contraindicated at this time due to GI bleed GI prophylaxis: Protonix drip CODE STATUS: Full code Procedures Colonoscopy with botox injection 12/15/16 Brief History This a 56-year-old male with extensive past history significant for hypertension, diabetes, end-stage renal disease on dialysis, 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 He is being admitted for blood found in his colostomy bag. Today, 12/12/16, he went to get his dialysis done while there he became nauseated and vomited nonbloody, non- biliary vomit. They stopped his dialysis and hourly because of this. He went home without home he started developing some abdominal pain in the epigastric region as well as around his colostomy. He then began to notice a large quantity of blood in his colostomy bag. This worried him as he never had a GI bleed before in the past. He decided to come to the hospital for further evaluation. CBC/BMP: 12/15/16 0400 12/15/16 0400 Significant Findings Laboratory Tests Test 12/12/16 12/13/16 12/13/16 12/13/16 17:05 03:33 14:05 20:01 White Blood Count 17.2 TH/MM3 12.5 TH/MM3 (4.0-11.0) (4.0-11.0) Red Blood Count 4.41 MIL/MM3 3.81 MIL/MM3 (4.50-5.90) (4.50-5.90) Hematocrit 38.1 % 32.9 % 32.2 % 34.6 % (39.0-51.0) (39.0-51.0) (39.0-51.0) (39.0-51.0) Neutrophils (%) (Auto) 85.4 % 75.8 % (16.0-70.0) (16.0-70.0) Lymphocytes (%) (Auto) 7.3 % (9.0-44.0) Neutrophils # (Auto) 14.7 TH/MM3 9.5 TH/MM3 (1.8-7.7) (1.8-7.7) Monocytes # (Auto) 1.1 TH/MM3 1.0 TH/MM3 (0-0.9) (0-0.9) Creatinine 4.96 MG/DL 5.41 MG/DL (0.60-1.30) (0.60-1.30) Estimat Glomerular Filtration 12 ML/MIN (>89) 11 ML/MIN (>89) Rate Hemoglobin 11.1 GM/DL 10.7 GM/DL 11.2 GM/DL (13.0-17.0) (13.0-17.0) (13.0-17.0) Platelet Count 143 TH/MM3 (150-450) Blood Urea Nitrogen 20 MG/DL (7-18) Calcium Level 8.1 MG/DL (8.5-10.1) Test 12/13/16 12/14/16 12/14/16 12/14/16 21:30 03:44 16:39 19:02 Urine Protein 100 mg/dL (NEG-TRACE) Urine Occult Blood MOD (NEG) Urine Leukocyte Esterase SMALL (NEG) Urine RBC 11 /hpf (0-3) Urine WBC 8 /hpf (0-5) Red Blood Count 3.97 MIL/MM3 (4.50-5.90) Hemoglobin 11.6 GM/DL 11.8 GM/DL 11.9 GM/DL (13.0-17.0) (13.0-17.0) (13.0-17.0) Hematocrit 35.0 % 34.6 % 36.1 % (39.0-51.0) (39.0-51.0) (39.0-51.0) Neutrophils (%) (Auto) 75.2 % (16.0-70.0) Monocytes (%) (Auto) 9.3 % (0.0-8.0) Neutrophils # (Auto) 7.9 TH/MM3 (1.8-7.7) Monocytes # (Auto) 1.0 TH/MM3 (0-0.9) Blood Urea Nitrogen 23 MG/DL (7-18) Creatinine 6.11 MG/DL (0.60-1.30) Estimat Glomerular Filtration 10 ML/MIN (>89) Rate Calcium Level 7.8 MG/DL (8.5-10.1) Aspartate Amino Transf 9 U/L (15-37) (AST/SGOT) Alanine Aminotransferase 7 U/L (12-78) (ALT/SGPT) Total Protein 6.3 GM/DL (6.4-8.2) Albumin 2.9 GM/DL (3.4-5.0) Test 12/15/16 04:00 Red Blood Count 3.65 MIL/MM3 (4.50-5.90) Hemoglobin 10.8 GM/DL (13.0-17.0) Hematocrit 31.5 % (39.0-51.0) Platelet Count 144 TH/MM3 (150-450) Neutrophils (%) (Auto) 75.8 % (16.0-70.0) Monocytes (%) (Auto) 11.0 % (0.0-8.0) Monocytes # (Auto) 1.0 TH/MM3 (0-0.9) Potassium Level 3.4 MEQ/L (3.5-5.1) Blood Urea Nitrogen 25 MG/DL (7-18) Creatinine 5.59 MG/DL (0.60-1.30) Estimat Glomerular Filtration 11 ML/MIN (>89) Rate Random Glucose 118 MG/DL (74-106) Calcium Level 7.8 MG/DL (8.5-10.1) Aspartate Amino Transf 5 U/L (15-37) (AST/SGOT) Alanine Aminotransferase LESS THAN 6 (ALT/SGPT) U/L (12-78) Total Protein 6.1 GM/DL (6.4-8.2) Albumin 2.7 GM/DL (3.4-5.0) PE at Discharge GENERAL: 56yo M laying in bed, in no acute distress HEENT: Atraumatic. Normocephalic. Pupils equal and round. No scleral icterus. No injection or drainage. No nasal bleeding or discharge. Mucous membranes pink and moist. Poor dentition NECK: Trachea midline. No JVD. CARDIOVASCULAR: Regular rate and rhythm. RESPIRATORY: No accessory muscle use. Clear to auscultation. Breath sounds equal bilaterally. GASTROINTESTINAL: Abdomen soft, +Colostomy with yellow/brown liquid, no gross blood present. Non-tender, non-distended. MUSCULOSKELETAL: No obvious deformities. No clubbing. No cyanosis. No edema. 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 Left arm with palpable fistula with thrill NEUROLOGICAL: Awake and alert. No obvious cranial nerve deficits. Motor grossly within normal limits. Normal speech. PSYCHIATRIC: Appropriate mood and affect; insight and judgment normal. Hospital Course Patient came into the hospital 12/12/16 for blood in his colostomy bag. Hemoglobin was never less than 10.7 over hospital stay. Seen by GI. EGD with botox injection and colonoscopy were performed. Duodenal polyp was biopsied, not removed. Colonoscopy via colostomy showed inflammation due to pressure from hard stool. The biopsy showed acute inflammation in the right colon and duodenal mucosa with no significant histopathologic abnormalities. The patients H/H remained stable, no further bleeding was noted from the colostomy and the patient was discharge. Pt Condition on Discharge: Stable Discharge Disposition: Discharge Home Discharge Instructions DIET: Follow Instructions for: Renal Failure Diet Activities you can perform: Regular-No Restrictions Follow up Referrals: Gastroenterology - 2 Weeks @ [facility] - 1 Week with David Kennedy MD PCP Follow-up - 1 Week New Medications: Metronidazole (Flagyl) 500 Mg Tab 500 MG PO QID for Infection, #20 TAB 0 Refills Bethanechol (Urecholine) 10 Mg Tab 10 MG PO Q8HR, #90 TAB 0 Refills Continued Medications: Amlodipine (Norvasc) 10 Mg Tab 10 MG PO DAILY for Blood Pressure Management, #30 TAB 0 Refills Buspirone (Buspirone) 10 Mg Tab 10 MG PO BID for Anxiety, TAB 0 Refills Enalapril (Enalapril) 10 Mg Tab 10 MG PO DAILY, #30 TAB 0 Refills Metoprolol Tartrate (Metoprolol Tartrate) 50 Mg Tab 50 MG PO BID, #60 TAB 0 Refills Oxycodone-Acetaminophen (Percocet) 5-325 mg Tab 1 TAB PO Q4H PRN for PAIN, #30 TAB 0 Refills Pantoprazole (Protonix) 40 Mg Tab 40 MG PO BID for Ulcer Prevention, #60 TAB 0 Refills Pregabalin (Lyrica) 75 Mg Cap 75 MG PO BID, #60 CAP 0 Refills Jorge Corona MD R1 Dec 15, 2016 14:24
--- NOTE | 2016-12-15 14:26 | HHI.NPPN ---
Subjective History of Present Illness The patient is a 56 yo [place] male who is known to our services for ESRD on HD TTS. He presented to the ED 12/12 after receiving 2h of his planned HD with complaint of copious amounts of BRB in colostomy bag. He was having excessive output all day yesterday, but sought treatment when it turned bloody. 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 Interval History s/p EGD/colonoscopy today. No recurrence of bloody stools. Potential D/C today (Eugenie Britton) Review of Systems General General Remarks Denies any current complaints (Eugenie Britton) Objective Data Data 12/14/16 12/15/16 19:00 07:00 Intake Total 250 ml 320 ml Output Total 3000 ml 250 ml Balance -2750 ml 70 ml Intake Oral 0 ml 320 ml IV Total 150 ml Other 100 ml Output Urine Total 0 ml 250 ml Hemodialysis 3000 ml Estimated Blood Loss 0 ml # Voids 0 # Bowel Movements 0 0 Vital Signs Date Time Temp Pulse Resp B/P Pulse Ox O2 Delivery O2 Flow Rate FiO2 12/15/16 12:37 95 21 12/15/16 12:00 98.4 60 16 116/57 99 12/15/16 08:00 96.9 84 18 175/79 100 12/15/16 00:00 97.9 71 18 109/55 99 12/14/16 20:00 99.8 87 18 157/71 99 12/14/16 17:35 99 Nasal Cannula 2.00 12/14/16 16:00 97.0 76 18 147/70 99 (Eugenie Britton) -: 12/15/16 0400 12/15/16 0400 Imaging Last Impressions Abdomen/Pelvis CT 12/12/16 0000 Signed Impressions: Service Date/Time: Monday, December 12, 2016 18:26 - CONCLUSION: 1. Mural thickening of colon proximal to colostomy with some pericolonic fat stranding most characteristic of a right-sided colitis. 2. Left inguinal hernia containing bowel similar to prior study in November. No bowel obstruction. 3. Atrophic kidneys with numerous nonobstructing calcifications similar to prior exam. Eduardo Cano MD Medication Review Current Medications Medications (Trade) Dose Ordered Sig/Hallie Route Start Time Stop Time Status Last Admin (NS Flush) 2 ml UNSCH PRN IV FLUSH 12/12/16 19:30 (NS Flush) 2 ml BID IV FLUSH 12/12/16 21:00 12/15/16 09:15 (Zofran Inj) 4 mg Q6H PRN IV 12/12/16 19:30 12/14/16 21:50 (D50w (Vial) Inj) 50 ml UNSCH PRN IV 12/12/16 19:30 (Glucagon Inj) 1 mg UNSCH PRN OTHER 12/12/16 19:30 (Catapres) 0.1 mg Q6H PRN PO 12/12/16 19:30 (Norvasc) 10 mg DAILY PO 12/13/16 09:00 12/15/16 09:16 (Buspar) 10 mg BID PO 12/12/16 21:00 12/15/16 09:16 (Lopressor) 50 mg BID PO 12/12/16 21:00 12/15/16 09:16 (Lyrica) 75 mg BID PO 12/12/16 21:00 12/15/16 09:16 (Habitrol 21 Mg Patch.24 Hr) 1 patch DAILY T-DERMAL 12/12/16 19:45 12/15/16 09:22 Miscellaneous Information 1 1 HS T-DERMAL 12/12/16 21:00 12/13/16 21:00 Ciprofloxacin/ Dextrose 200 ml @ 200 mls/hr Q12H IV 12/13/16 08:00 12/15/16 09:15 (Flagyl 500 Mg Inj) 100 ml @ 100 mls/hr Q8H IV 12/12/16 22:00 12/15/16 14:09 (Dilaudid Pf Inj) 1 mg Q4H PRN IV PUSH 12/12/16 20:15 12/15/16 09:16 Bethanechol Chloride 10 mg 10 mg Q8HR PO 12/13/16 22:00 12/15/16 14:09 Sodium Chloride 1,000 ml @ 0 mls/hr Q0M PRN IV 12/13/16 19:00 Sodium Chloride 1,000 ml @ 200 mls/hr Q5H PRN IV 12/13/16 17:35 (NS 1000 ml Inj) 1,000 ml @ 0 mls/hr Q0M PRN IV 12/13/16 17:35 (Mannitol Inj) 12.5 gm UNSCH PRN IV 12/13/16 17:45 (Albumin 25% Inj) 25 gm UNSCH PRN IV 12/13/16 17:45 (NS Flush) 5 ml UNSCH PRN IV FLUSH 12/13/16 17:45 (Heparin Inj) UNSCH PRN .XX 12/13/16 17:45 (Gentamicin (Dialysis) Inj) 20 mg UNSCH PRN IV 12/13/16 17:45 12/14/16 12:54 (Zofran Inj) 4 mg UNSCH PRN IV 12/13/16 17:45 (Tylenol) 650 mg UNSCH PRN PO 12/13/16 17:45 (Benadryl) 25 mg UNSCH PRN PO 12/13/16 17:45 (Nitrostat Sl) 0.4 mg UNSCH PRN SL 12/13/16 17:45 (Catapres) 0.1 mg UNSCH PRN PO 12/13/16 17:45 Gelatin 1 foam 1 foam UNSCH PRN TOP 12/13/16 17:45 (Lr 1000 ml Inj) 1,000 ml @ 30 mls/hr Q24H PRN IV 12/14/16 05:15 12/17/16 05:14 (Protonix) 40 mg DAILY PO 12/15/16 09:00 12/15/16 09:16 (Eugenie Britton) Physical Exam General Appearance: No Acute Distress, Comfortable (Eugenie Britton) Eyes Eye Exam: Sclera White (Eugenie Britton) Pulmonary Resp Exam: Clear Bilaterally, Breath Sounds Equal, No Distress (Eugenie Britton) Cardiology CV Exam: Regular, Normal Sinus Rhythm (Eugenie Britton) Gastrointestinal/Abdomen GI Exam: Soft, Non-Tender (Eugenie Britton) Integumentary Skin Exam: Clear, Warm, Dry (Eugenie Britton) Extremeties Extremities Exam: No Edema (Eugenie Britton) Neurologic Neuro Exam: Alert, Awake (Eugenie Britton) Psychiatric Psych Exam: Appropriate Responses (Eugenie Britton) Assessment/Plan Discussed Condition With: Patient Problem List: (1) ESRD on hemodialysis Plan: Continue HD TTS as per outpatient schedule. Next HD tomorrow Patient stable from a renal point of view for discharge planning. Medications should be adjusted for the patient's ESRD. Avoid gadolinium. (2) HTN (hypertension) Plan: Continue on home regimen (3) Diabetes type 2, uncontrolled Plan: Mgmt as per primary team (Eugenie Britton) Plan The exam, history, and the medical decision-making described in the above note were completed with the assistance of the PAJackson. I reviewed and agree with the findings presented. (David Kennedy MD) Problem Qualifiers (1) Diabetes type 2, uncontrolled: Eugenie Britton Dec 15, 2016 14:26 David Kennedy MD Jan 08, 2017 13:29
== END 2016-12-15 15:17 | disposition home or self-care (01) | DRG 377 ==
LOC: NEPC 15:49 → NEDA 19:11 → N07B 22:40
PROVIDERS: ADMIT Family Medicine; ATTEND Family Medicine
PROC: 0DC68ZZ Extirpation of Matter from Stomach, Via Natural or Artificial Opening Endoscopic (ICD-10-PCS; 2016-12-14)
PROC: 3E0G8GC Introduction of Other Therapeutic Substance into Upper GI, Via Natural or Artificial Opening Endoscopic (ICD-10-PCS; 2016-12-14)
PROC: 0DB98ZX Excision of Duodenum, Via Natural or Artificial Opening Endoscopic, Diagnostic (ICD-10-PCS; 2016-12-14)
PROC: 5A1D00Z (ICD-10-PCS; principal; 2016-12-14 12:44)
PROC: 0W3P8ZZ Control Bleeding in Gastrointestinal Tract, Via Natural or Artificial Opening Endoscopic (ICD-10-PCS; 2016-12-14 12:44)
DX: K25.4 Chronic or unspecified gastric ulcer with hemorrhage (principal); N18.6 End stage renal disease; I13.2 Hypertensive heart and chronic kidney disease with heart failure and with stage 5 chronic kidney disease, or end stage renal disease; E11.22 Type 2 diabetes mellitus with diabetic chronic kidney disease; I95.3 Hypotension of hemodialysis; N25.81 Secondary hyperparathyroidism of renal origin; E11.42 Type 2 diabetes mellitus with diabetic polyneuropathy; K31.84 Gastroparesis; F41.9 Anxiety disorder, unspecified; F32.9 Major depressive disorder, single episode, unspecified; I25.10 Atherosclerotic heart disease of native coronary artery without angina pectoris; I50.9 Heart failure, unspecified; K31.7 Polyp of stomach and duodenum; K40.90 Unilateral inguinal hernia, without obstruction or gangrene, not specified as recurrent; E78.00 Pure hypercholesterolemia, unspecified; K44.9 Diaphragmatic hernia without obstruction or gangrene; E11.65 Type 2 diabetes mellitus with hyperglycemia; K52.9 Noninfective gastroenteritis and colitis, unspecified; E11.51 Type 2 diabetes mellitus with diabetic peripheral angiopathy without gangrene; K21.9 Gastro-esophageal reflux disease without esophagitis; E11.43 Type 2 diabetes mellitus with diabetic autonomic (poly)neuropathy; F17.210 Nicotine dependence, cigarettes, uncomplicated; Z95.5 Presence of coronary angioplasty implant and graft; I25.2 Old myocardial infarction; Z93.3 Colostomy status; Z99.2 Dependence on renal dialysis; Z95.820 Peripheral vascular angioplasty status with implants and grafts
CPT/HCPCS: 74176; 80048; 80053; 81001; 82948; 85014; 85018; 85025; 85610; 85730; 86850; 86900; 86901; 88305; 90935; 93005; 96365; 96374; 96375; C9113; J0585; J0744; J1170; J1580; J1610; J2270; J2405; J7030; J7042

== ENCOUNTER 2017-01-11 10:15 | Observation (INO) | payer OTHER, MEDICARE ==
[2017-01-11] VITALS (10 sets, daily range): BP systolic 103–142; BP diastolic 58–76; PULSE 56–89; RESP 16–20; TEMP 97.4–98.7; O2SAT 95–100
[~2017-01-11] VITALS: Ht 172.7 cm; Wt 70.0 kg
[~2017-01-11 10:15] MED LIST changes: +BETH10 PO; +METR-1 PO; +PERC5TAB12 PO
[2017-01-11] MEDS ORDERED: FAMOTIDINE 20 MG/2 ML VIAL IV PUSH ONE (10:30)
[2017-01-11] MEDS ORDERED: MORPHINE SULFATE 4 MG/ML INJ IV PUSH ONE ×2 (10:30→12:30)
[2017-01-11] MEDS ORDERED: SODIUM CHLOR 0.9% 250 ML INJ 250 ML IV ONE (10:30)
[2017-01-11] MEDS ORDERED: ONDANSETRON HCL 4 MG/2 ML VIAL IVP ONE (10:30)
--- NOTE | 2017-01-11 10:35 | PD ---
HPI Chief Complaint: GI Complaint Time Seen by Provider: 10:27 Travel History International Travel<30 days: No Contact w/Intl Traveler<30days: No Traveled to known affect area: No History of Present Illness HPI The patient is a 56-year-old male who presents to the emergency department via EMS for nausea, vomiting, and epigastric abdominal pain. The patient has a history of similar symptoms in the past secondary to diabetic gastroparesis, perforated viscus, and colitis. The patient is currently end- stage renal disease on hemodialysis via permacath on Tuesdays, , and Saturdays. The patient's primary physician is the [place] [facility] and the patient's back order clerk is Dr. Kennedy. He states he developed nausea and vomiting this morning with multiple episodes of vomiting and persistent nausea. He does complain of mild epigastric burning abdominal pain that is nonradiating. The patient denies any chest pain or shortness of breath. The patient was unable to keep down his morning medications and missed his dialysis appointment at 10 AM. Symptoms are moderate, possibly exacerbated by underlying illnesses, and there are no current alleviating factors. He denies any fever, chills, or sweats. PFSH Past Medical History Hx Anticoagulant Therapy: No Arthritis: No Asthma: No Blood Disorders: No Anxiety: Yes Depression: Yes Heart Rhythm Problems: No Cancer: No Cardiac Catheterization: Yes Cardiovascular Problems: Yes (CHF, HEART ATTACK, PVD CAD ) High Cholesterol: Yes Chest Pain: No Congestive Heart Failure: Yes COPD: No Cerebrovascular Accident: No Diabetes: Yes Dialysis: Yes (RIGHT CHEST VAS CATH) Diminished Hearing: No Endocrine: Yes Gastrointestinal Disorders: Yes (gastroparesis, GERD, COLOSTOMY) GERD: Yes Genitourinary: Yes (CKD ) Headaches: No Hepatitis: No Hiatal Hernia: Yes Hypertension: Yes Immune Disorder: No Inguinal Hernia: Yes Implanted Vascular Access Dvce: Yes (L FOREARM fistula) Kidney Stones: Yes Musculoskeletal: No Neurologic: Yes (neuropathy FEET AND HANDS) Psychiatric: Yes Reproductive: No Respiratory: Yes (HX PNEUMONIA) Immunizations Current: Yes Migraines: No Myocardial Infarction: Yes (2003) Renal Failure: Yes (chronic kidney disease on hemodialysis) Seizures: No Sleep Apnea: No Thyroid Disease: No Ulcer: No Past Surgical History Abdominal Surgery: Yes (BOWEL RESECTION, COLOSTOMY) AICD: No Arteriovenous Shunt: No Body Medical Devices: Cardiac Stent, PERMACATH UPPER LEFT CHEST Cardiac Surgery: No Coronary Stent: Yes Ear Surgery: No Endocrine Surgery: No Eye Surgery: No Genitourinary Surgery: No Gynecologic Surgery: No Insulin Pump: No Joint Replacement: No Oral Surgery: No Pacemaker: No Thoracic Surgery: No Other Surgery: Yes (KELLY fistula, right leg fem pop bypass) Social History Alcohol Use: No Tobacco Use: Yes (/2 PPD) Substance Use: No Allergies-Medications (Allergen,Severity, Reaction): Coded Allergies: No Known Allergies (Unverified , 12/12/16) Reported Meds & Prescriptions Reported Meds & Active Scripts Active Percocet (Oxycodone-Acetaminophen) 5-325 mg Tab 1 Tab PO Q6H PRN Zofran Odt (Ondansetron Odt) 4 Mg Tab 4 Mg SL Q6HR PRN Phenergan (Promethazine HCl) 25 Mg Tablet 25 Mg PO Q6H PRN Urecholine (Bethanechol Chloride) 10 Mg Tab 10 Mg PO Q8HR Percocet (Oxycodone-Acetaminophen) 5-325 mg Tab 1 Tab PO Q4H PRN Protonix (Pantoprazole Sodium) 40 Mg Tab 40 Mg PO BID Reported Lyrica (Pregabalin) 75 Mg Cap 75 Mg PO BID Enalapril (Enalapril Maleate) 10 Mg Tab 10 Mg PO DAILY Norvasc (Amlodipine Besylate) 10 Mg Tab 10 Mg PO DAILY Buspirone (Buspirone HCl) 10 Mg Tab 10 Mg PO BID Metoprolol Tartrate 50 Mg Tab 50 Mg PO BID Review of Systems Except as stated in HPI: all other systems reviewed are Neg General / Constitutional: No: Fever, Chills Cardiovascular: No: Chest Pain or Discomfort Respiratory: No: Shortness of Breath Gastrointestinal: Positive: Nausea, Vomiting, No: Diarrhea Musculoskeletal: No: Weakness Neurologic: No: Weakness, Dizziness Physical Exam Narrative GENERAL: Awake, alert, pleasant 56-year-old male who appears his stated age and is in no acute respiratory distress. SKIN: Focused skin assessment warm/dry. HEAD: Atraumatic. Normocephalic. EYES: Pupils equal and round. No scleral icterus. No injection or drainage. ENT: No nasal bleeding or discharge. Mucous membranes pink and moist. NECK: Trachea midline. No JVD. CARDIOVASCULAR: Regular rate and rhythm. No murmur appreciated. RESPIRATORY: No accessory muscle use. Clear to auscultation. Breath sounds equal bilaterally. GASTROINTESTINAL: Abdomen soft, minimal epigastric tenderness. Colostomy bag noted. Midline surgical scar noted. Back: No CVA tenderness. MUSCULOSKELETAL: Well-healed scars over the medial aspect of the right lower extremity. Amputation of the right great toe noted. NEUROLOGICAL: Awake and alert. No obvious cranial nerve deficits. Motor grossly within normal limits. Normal speech. Nonfocal. PSYCHIATRIC: Appropriate mood and affect; insight and judgment normal. Data Data Last Documented VS Vital Signs Date Time Temp Pulse Resp B/P (MAP) Pulse Ox O2 Delivery O2 Flow Rate FiO2 01/11/17 12:03 68 16 142/76 (98) 100 01/11/17 10:26 97.4 Room Air Orders Orders Complete Blood Count With Diff (01/11/17 10:27) Comprehensive Metabolic Panel (01/11/17 10:27) Lipase (01/11/17 10:27) Iv Access Insert/Monitor (01/11/17 10:27) Ecg Monitoring (01/11/17 10:27) Oximetry (01/11/17 10:27) Morphine Inj (Morphine Inj) (01/11/17 10:30) Ondansetron Inj (Zofran Inj) (01/11/17 10:30) Sodium Chloride 0.9% Flush (Ns Flush) (01/11/17 10:30) Electrocardiogram (01/11/17 10:27) Abdomen, Upright Only (01/11/17 10:27) Famotidine Inj (Pepcid Inj) (01/11/17 10:30) Sodium Chlor 0.9% 250 Ml Inj (Ns 250 Ml (01/11/17 10:30) Creatine Kinase (Cpk) (01/11/17 10:27) Ondansetron Inj (Zofran Inj) (01/11/17 12:00) Acetamin-Hydrocod 325-5 Mg ([place] 5-325 (01/11/17 12:00) Morphine Inj (Morphine Inj) (01/11/17 12:30) Admit Order (Ed Use Only) (01/11/17 12:28) Labs Laboratory Tests Test 01/11/17 10:40 White Blood Count 22.0 TH/MM3 Red Blood Count 5.13 MIL/MM3 Hemoglobin 14.8 GM/DL Hematocrit 45.8 % Mean Corpuscular Volume 89.3 FL Mean Corpuscular Hemoglobin 29.0 PG Mean Corpuscular Hemoglobin Concent 32.4 % Red Cell Distribution Width 15.7 % Platelet Count 207 TH/MM3 Mean Platelet Volume 10.2 FL Neutrophils (%) (Auto) 86.7 % Lymphocytes (%) (Auto) 8.3 % Monocytes (%) (Auto) 2.6 % Eosinophils (%) (Auto) 2.0 % Basophils (%) (Auto) 0.4 % Neutrophils # (Auto) 19.1 TH/MM3 Lymphocytes # (Auto) 1.8 TH/MM3 Monocytes # (Auto) 0.6 TH/MM3 Eosinophils # (Auto) 0.4 TH/MM3 Basophils # (Auto) 0.1 TH/MM3 CBC Comment DIFF FINAL Differential Comment Blood Urea Nitrogen 31 MG/DL Creatinine 7.34 MG/DL Random Glucose 185 MG/DL Total Protein 7.1 GM/DL Albumin 3.2 GM/DL Calcium Level 8.4 MG/DL Alkaline Phosphatase 182 U/L Aspartate Amino Transf (AST/SGOT) 23 U/L Alanine Aminotransferase (ALT/SGPT) 11 U/L Total Bilirubin 0.6 MG/DL Sodium Level 136 MEQ/L Potassium Level 4.1 MEQ/L Chloride Level 103 MEQ/L Carbon Dioxide Level 20.0 MEQ/L Anion Gap 13 MEQ/L Estimat Glomerular Filtration Rate 8 ML/MIN Total Creatine Kinase 66 U/L Lipase 99 U/L MDM Medical Decision Making Medical Screen Exam Complete: Yes Emergency Medical Condition: Yes Medical Record Reviewed: Yes Interpretation(s) EKG reveals sinus bradycardia with a heart rate of 55. Q wave noted in lead 3 and aVF. Last Impressions Abdomen X-Ray 01/11/17 1027 Signed Impressions: Service Date/Time: January 10:40 - CONCLUSION: Nonspecific abdomen. Esme Covarrubias MD Laboratory Tests Test 01/11/17 10:40 White Blood Count 22.0 TH/MM3 Red Blood Count 5.13 MIL/MM3 Hemoglobin 14.8 GM/DL Hematocrit 45.8 % Mean Corpuscular Volume 89.3 FL Mean Corpuscular Hemoglobin 29.0 PG Mean Corpuscular Hemoglobin Concent 32.4 % Red Cell Distribution Width 15.7 % Platelet Count 207 TH/MM3 Mean Platelet Volume 10.2 FL Neutrophils (%) (Auto) 86.7 % Lymphocytes (%) (Auto) 8.3 % Monocytes (%) (Auto) 2.6 % Eosinophils (%) (Auto) 2.0 % Basophils (%) (Auto) 0.4 % Neutrophils # (Auto) 19.1 TH/MM3 Lymphocytes # (Auto) 1.8 TH/MM3 Monocytes # (Auto) 0.6 TH/MM3 Eosinophils # (Auto) 0.4 TH/MM3 Basophils # (Auto) 0.1 TH/MM3 CBC Comment DIFF FINAL Differential Comment Blood Urea Nitrogen 31 MG/DL Creatinine 7.34 MG/DL Random Glucose 185 MG/DL Total Protein 7.1 GM/DL Albumin 3.2 GM/DL Calcium Level 8.4 MG/DL Alkaline Phosphatase 182 U/L Aspartate Amino Transf (AST/SGOT) 23 U/L Alanine Aminotransferase (ALT/SGPT) 11 U/L Total Bilirubin 0.6 MG/DL Sodium Level 136 MEQ/L Potassium Level 4.1 MEQ/L Chloride Level 103 MEQ/L Carbon Dioxide Level 20.0 MEQ/L Anion Gap 13 MEQ/L Estimat Glomerular Filtration Rate 8 ML/MIN Total Creatine Kinase 66 U/L Lipase 99 U/L Differential Diagnosis Differential diagnosis includes hyperkalemia, hypokalemia, gastritis, gastroparesis, intractable nausea/vomiting, colitis, sepsis, dehydration. Narrative Course IV was established, labs are drawn and sent, and the patient was placed on cardiac telemetry monitoring and continuous pulse oximetry monitoring. EKG was ordered and interpreted. The patient was administered 250 cc normal saline bolus and Zofran 4 mg intravenously. Upright abdominal x-ray was obtained. Upright abdominal x-ray reveals nonspecific abdomen, no evidence of air-fluid levels or obstruction. White count is elevated at 22, however, patient is afebrile and is not tachycardic. Electrolytes are unremarkable. The patient was reassessed, his nausea had improved, but he still had mild discomfort. Therefore, patient was administered [place] 5 mg orally for pain and Zofran forma grams intravenously. The patient states most of his pain is now has constant neuropathy since he missed his Neurontin dose in the morning. The patient is afebrile, slightly elevated white count, but no evidence of infection. The patient's symptoms have improved. We call the patient's dialysis center, they are unable to dialyze today, however, we'll be able to perform dialysis tomorrow at 10:15 AM. However, patient was given a by mouth challenge at noon, had another episode of vomiting despite 2 doses of Zofran. The patient therefore, will be 23 hour observation to the medical service for judicious IV hydration and antiemetics. Physician Communication Physician Communication The on-call medical service was paged for 23 hour observation. I discussed the patient with Dr. Barrera who agrees with admission to Dr. Gandhi. Diagnosis Primary Impression: Intractable nausea and vomiting Qualified Codes: R11.2 - Nausea with vomiting, unspecified Additional Impressions: ESRD (end stage renal disease) on dialysis Gastritis Qualified Codes: K29.00 - Acute gastritis without bleeding Admitting Information Admitting Physician Requests: Observation Patient Instructions: General Instructions Additional Instructions: Please provide a patient a copy of his lab results at discharge. Go to her dialysis center tomorrow for an appointment at 10:15 AM. Medications as directed. Return sooner if symptoms worsen or progress. Med/Other Pt SpecificInfo: Prescription(s) given Scripts Oxycodone-Acetaminophen (Percocet) 5-325 mg Tab 1 TAB PO Q6H Y for PAIN, #10 TAB 0 Refills Prov: Huber Rodriguez MD 01/11/17 Ondansetron Odt (Zofran Odt) 4 Mg Tab 4 MG SL Q6HR Y for Nausea/Vomiting, #7 TAB 0 Refills Prov: Huber Rodriguez MD 01/11/17 Promethazine (Phenergan) 25 Mg Tablet 25 MG PO Q6H Y for NAUSEA OR VOMITING, #10 TAB 0 Refills Prov: Huber Rodriguez MD 01/11/17 Disposition: 01 DISCHARGE HOME Condition: Stable Huber Rodriguez MD Jan 11, 2017 10:35
--- NOTE | 2017-01-11 10:54 | RADRPT ---
EXAM DATE/TIME: 01/11/2017 10:40 [facility] COMPARISON: ABDOMEN FLAT & UPRIGHT, July 24, 2016, 17:45. INDICATIONS : Vomiting and abdomen pain MEDICAL HISTORY : Hypertension. Congestive heart failure. Myocardial infarction.Renal failure, perforated colon SURGICAL HISTORY : Colostomy. Colon resection. ENCOUNTER: Initial ACUITY: 1 day PAIN SCORE: 7/10 LOCATION: Abdomen FINDINGS: The bowel gas is nonspecific. There are no signs of obstruction or free air for technique. No defini te calcified stones are identified for technique. CONCLUSION: Nonspecific abdomen. Esme Covarrubias MD on January 11, 2017 at 10:51 Board Certified Radiologist. This report was verified electronically.
[2017-01-11 11:01] LABS: AUTOMATED NEUTROPHIL # 19.1 TH/MM3 (1.8-7.7); BASOPHIL # 0.1 TH/MM3 (0-0.2); BASOPHIL % 0.4 % (0.0-2.0); EOSINOPHIL # 0.4 TH/MM3 (0-0.4); HEMATOCRIT 45.8 % (39.0-51.0); HEMO FLAGS DIFF FINAL; LYMPH % 8.3 % (9.0-44.0); LYMPHOCYTE # 1.8 TH/MM3 (1.0-4.8); MEAN CELL VOLUME 89.3 FL (80.0-100.0); MEAN CORPUSCULAR HGB CONC 32.4 % (32.0-36.0); MONO % 2.6 % (0.0-8.0); NEUT % 86.7 % (16.0-70.0); PLATELET COUNT 207 TH/MM3 (150-450); RED BLOOD COUNT 5.13 MIL/MM3 (4.50-5.90); RED CELL DISTRIBUTION WIDTH 15.7 % (11.6-17.2)
[2017-01-11 11:12] LABS: ALT (GPT) 11 U/L (12-78)
[2017-01-11 11:17] LABS: ALKALINE PHOSPHATASE 182 U/L (45-117); ANION GAP 13 MEQ/L (5-15); AST (GOT) 23 U/L (15-37); BLOOD UREA NITROGEN 31 MG/DL (7-18); CHLORIDE 103 MEQ/L (98-107); CREATINE KINASE 66 U/L (39-308); GLOMERULAR FILTRATION RATE 8 ML/MIN (>89); POTASSIUM 4.1 MEQ/L (3.5-5.1); SODIUM (NA) 136 MEQ/L (136-145); TOTAL BILIRUBIN ADULT 0.6 MG/DL (0.2-1.0)
[2017-01-11] MEDS ORDERED: ZOFR4TAB3 SL (11:54)
[2017-01-11] MEDS ORDERED: PERC5TAB12 PO (11:54)
[2017-01-11] MEDS ORDERED: PROM25TA10 PO (11:54)
[2017-01-11] MEDS ORDERED: ACETAMINOPHEN/HYDROcodone 325 MG/5 MG TAB PO ONE (12:00)
[2017-01-11] MEDS ORDERED: ONDANSETRON HCL 4 MG/2 ML VIAL IV PUSH ONE (12:00)
--- NOTE | 2017-01-11 12:51 | HHI.HP ---
[facility] Service Family Medicine Primary Care Physician [facility] Admission Diagnosis intractable nausea/vomiting, ESRD on HD Diagnoses: International Travel<30 Days: No Contact w/Intl Traveler<30days: No Known Affected Area: No History of Present Illness Pt is a 56-year-old male with past medical history of hypertension, diabetes, end-stage renal disease on dialysis (handstitching machine armhole feller is Dr. 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 Patient states that he was preparing to go for dialysis (he is on a Sunday, , and Sunday schedule) when the nausea and vomiting began. He vomited nonbloody material for at least 20 times associated with dry heaving. Patient also states that he noticed increased output from his colostomy bag. He also describes feeling very cold, dizzy, and sweating profusely. He denies sick contacts except the patients at the dialysis center, change in diet, or change in medications. He denies dysuria - stating that he urinates once a day and already did so today. Patient could not tolerate any of his oral medications this morning. (Carol Barrera MD R2) Review of Systems Constitutional: COMPLAINS OF: Diaphoretic episodes, Chills, DENIES: Fever Eyes: DENIES: Blurred vision Ears, nose, mouth, throat: COMPLAINS OF: Throat pain (sore), Running Nose ( since about 9am) Respiratory: DENIES: Cough, Shortness of breath Cardiovascular: DENIES: Chest pain, Syncope Gastrointestinal: COMPLAINS OF: Abdominal pain, Diarrhea (colostomy bag filled up with liquid after being changed), Nausea, Vomiting Genitourinary: DENIES: Urinary frequency, Dysuria Musculoskeletal: DENIES: Joint pain, Muscle aches Integumentary: COMPLAINS OF: Pruritus, DENIES: Rash (for a couple of weeks) Neurologic: COMPLAINS OF: Headache (forehead) Psychiatric: COMPLAINS OF: Anxiety, Confusion (Carol Barrera MD R2) Past Family Social History Past Medical History Hypertension Hypercholesterolemia Diabetes End-stage renal disease on dialysis Perforated bowel due to Ischemic bowel resulting in colectomy with colostomy bag placement GERD Gastroparesis Congestive heart failure ID 12 years ago PVD CAD Neuropathy Past Surgical History Laparotomy Colectomy Colostomy placement Peripheral artery bypass Right great toe amputation Left Forearm fistula Cardiac stent (Eko,Carol Melendrez MD R2) Allergies: Coded Allergies: No Known Allergies (Unverified , 12/12/16) Family History Father from car wreck Mother from leukemia Younger brother has hypertension and is an alcoholic No family history of diabetes Social History Lives by himself in an apartment in [place] Has smoked since he was 16, 30-40 years ago. Currently smokes half a pack a day Denies alcohol and illicit drug use (EkoCarol MD R2) Physical Exam Vital Signs Vital Signs Date Time Temp Pulse Resp B/P (MAP) Pulse Ox O2 Delivery O2 Flow Rate FiO2 01/11/17 12:03 68 16 142/76 (98) 100 01/11/17 10:34 16 95 01/11/17 10:26 97.4 89 118/68 (85) 96 Room Air 01/11/17 10:23 Physical Exam GENERAL: This is a well-nourished, well-developed patient, in no apparent distress, sitting up in bed. SKIN: No rashes, ecchymoses or lesions. No pressure ulcers on sacrum or feet. HEAD: Atraumatic. Normocephalic. No temporal or scalp tenderness. EYES: Pupils equal round and reactive. Extraocular motions intact. No scleral icterus. No injection or drainage. ENT: Nose without bleeding, purulent drainage or septal hematoma. Dry MMM. Throat without erythema, tonsillar hypertrophy or exudate. Uvula midline. Airway patent. NECK: Trachea midline. No JVD or lymphadenopathy. Supple, nontender, no meningeal signs. CARDIOVASCULAR: Bradycardic rate and rhythm without murmurs, gallops, or rubs. RESPIRATORY: Clear to auscultation. Breath sounds equal bilaterally. No wheezes , rales, or rhonchi. GASTROINTESTINAL: Abdomen soft, nondistended, tender to palpation in the mid epigastric region and LLQ. No hepato-splenomegaly, or palpable masses. No guarding. MUSCULOSKELETAL: Extremities without clubbing, cyanosis, or edema. Good pulses and capillary refill. Missing right big toe. No joint tenderness, effusion, or edema noted. No calf tenderness. NEUROLOGICAL: Awake and alert. Cranial nerves II through XII intact. Motor and sensory grossly within normal limits. Five out of 5 muscle strength in all muscle groups. Normal speech. Laboratory Laboratory Tests Test 01/11/17 10:40 White Blood Count 22.0 Red Blood Count 5.13 Hemoglobin 14.8 Hematocrit 45.8 Mean Corpuscular Volume 89.3 Mean Corpuscular Hemoglobin 29.0 Mean Corpuscular Hemoglobin Concent 32.4 Red Cell Distribution Width 15.7 Platelet Count 207 Mean Platelet Volume 10.2 Neutrophils (%) (Auto) 86.7 Lymphocytes (%) (Auto) 8.3 Monocytes (%) (Auto) 2.6 Eosinophils (%) (Auto) 2.0 Basophils (%) (Auto) 0.4 Neutrophils # (Auto) 19.1 Lymphocytes # (Auto) 1.8 Monocytes # (Auto) 0.6 Eosinophils # (Auto) 0.4 Basophils # (Auto) 0.1 CBC Comment DIFF FINAL Differential Comment Blood Urea Nitrogen 31 Creatinine 7.34 Random Glucose 185 Total Protein 7.1 Albumin 3.2 Calcium Level 8.4 Alkaline Phosphatase 182 Aspartate Amino Transf (AST/SGOT) 23 Alanine Aminotransferase (ALT/SGPT) 11 Total Bilirubin 0.6 Sodium Level 136 Potassium Level 4.1 Chloride Level 103 Carbon Dioxide Level 20.0 Anion Gap 13 Estimat Glomerular Filtration Rate 8 Total Creatine Kinase 66 Lipase 99 (Eko,Carol Melendrez MD R2) Result Diagram: 01/11/17 1040 01/11/17 1040 Imaging Last Impressions Abdomen X-Ray 01/11/17 1027 Signed Impressions: Service Date/Time: January 10:40 - CONCLUSION: Nonspecific abdomen. Esme Covarrubias MD Course In the ED, the patient was administered 250 mL normal saline bolus and Zofran 4 mg IV. Patient was afebrile but had an elevated white count of 22. EKG obtained in the ED was notable for sinus bradycardia with no ST segment changes suggestive of acute ID. On reassessment, his nausea had improved but he still had mild discomfort. Consequently, he was given [place] 5 mg by mouth and Zofran IV and reassessed several hours later with an oral challenge which resulted in another episode of vomiting. At this point, the decision was made to admit him for 23 hours observation. Notably, upright abdominal x-ray was obtained which revealed nonspecific abdomen with no evidence of air-fluid levels of obstruction. (Carol Barrera MD R2) Caprini VTE Risk Assessment Caprini VTE Risk Assessment: No/Low Risk (score <= 1) (Carol Barrera MD R2) Assessment and Plan Assessment and Plan 56 year old male with end-stage renal disease presents with one-day history of nausea, vomiting, increased colostomy outputs, and abdominal pain and leukocytosis with limited response to IV Zofran. Differential diagnosis includes hyperkalemia, gastritis, gastroenteritis, HHS, gastroparesis, intractable nausea/vomiting, colitis, sepsis, and dehydration. Notably, the patient has a history of diabetes but has not been on any medications since he began dialysis. He is not currently on Reglan or erythromycin for his gastroparesis. Patient will be admitted under observation for cautious rehydration, management of nausea/vomiting, and pain control. Patient was last admitted to the hospital in addition to dypsnea for similar symptoms on 11/09/16 and was managed with cipro and flagyl. Will consider blood cultures and antibiotics if he does not improve. Code Status Full code Discussed Condition With Dr. Gandhi and Dr. Judge (Carol Barrera MD R2) Attending Attestation Patient seen, examined, and discussed with resident team. I agree with assessment and management as documented and discussed with me. Pt reports some nausea, which has improved after receiving IV reglan. He complains of neuropathy pain due to missing morning dose of lyrica. He has had increased output of colostomy bag, with having to empty it twice today (normally once). The first time he emptied, stool seemed more liquid to him. The second time, it seemed more formed / like normal. Anticipate discharge tomorrow if symptoms improve and patient can tolerate PO. (Kristi Gandhi MD) Problem List: (1) Intractable nausea and vomiting ICD Codes: R11.2 - Nausea with vomiting, unspecified Status: Acute Plan: -Afebrile on admission, WBC elevated at 22, not tachycardic; does not meet sepsis criteria -Patient takes Zofran 4 mg sublingual every 6 hours when necessary at home - will hold this medication and try Reglan 10 mg every 6 hours IV -Normal saline 500 mL at 50 mL/hour -Nothing by mouth except for medications as tolerated. Advance to clear liquid diet as tolerated -Morphine 4 mg IV every 3 hours for pain greater than 5 -Abdominal x-ray nonspecific -Check C. difficile antigen, stool leukocytes, stool enteric pathogens -Lipase wnl at 99 -Potassium normal at 4.1 -Check magnesium and phosphorus (2) ESRD (end stage renal disease) on dialysis ICD Codes: N18.6 - End stage renal disease; Z99.2 - Dependence on renal dialysis Status: Chronic Plan: -Creatinine 7.34 with BUN of 31 -Patient on Sunday, , Sunday schedule -Dialysis clinic Center contacted and patient can get dialysis tomorrow a.m. if he gets to the Center by 10:15 AM -Will consult nephrology if patient does not improve by morning (3) DM (diabetes mellitus) ICD Codes: E11.9 - Diabetes mellitus Status: Chronic Plan: -Random glucose 185 -A1C pending -Glucose monitoring with supplemental insulin (4) Chronic Medical Problems Plan: Diabetes: Accu-Cheks with SSI GERD: Protonix 40mg IV Q12h CAD: Continue metoprolol 50 mg by mouth twice a day as tolerated Hypertension: Continue home Vasotec 10 mg by mouth daily and amlodipine 10 mg by mouth daily as tolerated. Hold anti-hypertensive medications for SBP<110, DBP <60 Anxiety: Continue BuSpar and 10 mg by mouth twice a day once patient tolerates by mouth intake Diabetic neuropathy: Continue lyrica as tolerated (5) FEN/DVT PPX/GI PPX/Nursing Orders Plan: Fluids: NS 500ml @ 50 mls/hr IV Electrolytes: Will monitor and replace as needed Nutrition: NPO except meds DVT Prophylaxis: Heparin subcutaneous Q8h GI Prophylaxis: Protonix 40mg PO IV Q12h Constipation prophylaxis: not required -Vitals Q4h -Monitor I's and O's -seconds handler with telemetry with continuous vital signs -Activity OOB with assistance Disposition: Plan to discharge by 23 hours of observation pending resolution of nausea and vomiting (Carol Barrera MD R2) Problem Qualifiers (1) Intractable nausea and vomiting: Qualified Codes: R11.2 - Nausea with vomiting, unspecified (2) DM (diabetes mellitus): Qualified Codes: E11.42 - Type 2 diabetes mellitus with diabetic polyneuropathy Carol Barrera MD R2 Jan 11, 2017 12:51 Kristi Gandhi MD Jan 11, 2017 21:12
[2017-01-11] MEDS ORDERED: SODIUM CHLORIDE 0.9% FLUSH 10 ML FLUSH IV FLUSH PRN (13:00)
[2017-01-11 15:33] LABS: MAGNESIUM 2.5 MG/DL (1.5-2.5)
[2017-01-11] MEDS: HEPARIN SODIUM - SQ 10,000 UNITS/ML VIAL SQ SCH ×2 (15:47→21:48)
[2017-01-11] MEDS: SODIUM CHLORIDE 0.9% FLUSH 10 ML FLUSH IV FLUSH PRN (16:18)
[2017-01-11] MEDS: METOCLOPRAMIDE HCL 10 MG/2 ML VIAL IV PRN ×2 (16:18→23:52)
[2017-01-11] MEDS: NICOTINE 7 MG/24 HR PATCH T-DERMAL SCH (18:17)
[2017-01-11] MEDS ORDERED: SODIUM CHLORID 0.9% 500 ML INJ 500 ML IV SCH (20:00)
[2017-01-11] MEDS ORDERED: DEXTROSE 50% IN WATER 50 ML VIAL(D50) IV PRN (20:15)
[2017-01-11] MEDS ORDERED: GLUCAGON 1 MG/ML VIAL OTHER PRN (20:15)
[2017-01-11] MEDS: MORPHINE SULFATE 4 MG/ML INJ IV PUSH PRN ×2 (20:15→23:51)
[2017-01-11 20:31] LABS: C. DIFF EPI 027 PRESUMPTIVE POSITIVE (NEGATIVE)
[2017-01-11] MEDS ORDERED: REMOVE OLD PATCH T-DERMAL SCH (21:00)
[2017-01-11] MEDS ORDERED: PREGABALIN 75 MG CAP PO SCH (21:00)
[2017-01-11] MEDS: INSULIN ASPART SUPPLEMENTAL SCALE SQ SCH (21:00)
[2017-01-11] MEDS: METOPROLOL TARTRATE 50 MG TAB PO SCH (21:00)
[2017-01-11] MEDS: PANTOPRAZOLE SODIUM 40 MG VIAL IV PUSH SCH (21:35)
[2017-01-11] MEDS: busPIRone HCL 10 MG TAB PO SCH (21:36)
[2017-01-11] MEDS ORDERED: HEPARIN SODIUM - SQ 10,000 UNITS/ML VIAL SQ SCH (22:00)
[2017-01-12 00:10] VITALS: PULSE 63
[2017-01-12 00:15] VITALS: BP 111/59; PULSE 63; RESP 18; TEMP 97.9; O2SAT 97
[2017-01-12 03:04] VITALS: BP 110/59; PULSE 65; RESP 18; TEMP 98.5; O2SAT 95
[2017-01-12] MEDS: MORPHINE SULFATE 4 MG/ML INJ IV PUSH PRN ×2 (03:25→06:12)
[2017-01-12 03:48] VITALS: PULSE 65
[2017-01-12] MEDS: INSULIN ASPART SUPPLEMENTAL SCALE SQ SCH (06:08)
[2017-01-12] MEDS: HEPARIN SODIUM - SQ 10,000 UNITS/ML VIAL SQ SCH (06:11)
[2017-01-12] MEDS: METOCLOPRAMIDE HCL 10 MG/2 ML VIAL IV PRN (06:11)
[2017-01-12 08:00] VITALS: PULSE 63
[2017-01-12] MEDS ORDERED: REGL5TAB PO (08:16)
[2017-01-12] MEDS ORDERED: PERC5TAB12 PO (08:16)
[2017-01-12] MEDS ORDERED: VANC125C3 PO (08:16)
[2017-01-12] MEDS ORDERED: LACTCAP8 PO (08:16)
--- NOTE | 2017-01-12 08:17 | HHI.DCPOC ---
Discharge Care Plan Diagnosis: (1) C. difficile diarrhea (2) Intractable nausea and vomiting (3) ESRD (end stage renal disease) on dialysis Goals to Promote Your Health * To prevent worsening of your condition and complications * To maintain your health at the optimal level Please take oral vancomycin 4 times a day for 14 days Directions to Meet Your Goals Take your medications as prescribed Follow your dietary instruction Follow activity as directed Keep your appointments as scheduled Take your immunizations and boosters as scheduled If your symptoms worsen call your PCP, if no PCP go to Urgent Care Center or Emergency Room Smoking is Dangerous to Your Health. Avoid second hand smoke Call the 24-hour hour crisis hotline for domestic abuse at Vinayak Judge MD R1 Jan 12, 2017 08:17
[2017-01-12] MEDS ORDERED: oxyCODONE/ACETAMINOPHEN 5 MG/325 MG TAB PO ONE (08:30)
[2017-01-12 08:44] VITALS: BP 92/52; PULSE 72; RESP 16; TEMP 98.2; O2SAT 98
[2017-01-12] MEDS: METOPROLOL TARTRATE 50 MG TAB PO SCH (08:50)
[2017-01-12] MEDS: PANTOPRAZOLE SODIUM 40 MG VIAL IV PUSH SCH (08:51)
[2017-01-12] MEDS: busPIRone HCL 10 MG TAB PO SCH (08:51)
[2017-01-12] MEDS: NICOTINE 7 MG/24 HR PATCH T-DERMAL SCH (08:51)
[2017-01-12] MEDS: SODIUM CHLORIDE 0.9% FLUSH 10 ML FLUSH IV FLUSH PRN (08:52)
[2017-01-12] MEDS ORDERED: VANCOMYCIN 500 MG VIAL (FOR ORAL USE ONLY) PO SCH (09:00)
[2017-01-12] MEDS ORDERED: ENALAPRIL MALEATE 10 MG TAB PO SCH (09:00)
--- NOTE | 2017-01-12 11:23 | HHI.FPPN ---
Subjective Remarks Patient was doing much better this morning. He denied nausea or vomiting but still had abdominal pain which is well-managed with morphine. We discussed the results of the C difficile test which were positive and the treatment regimen. He stated that he felt good enough to go home and was willing to try an oral challenge with clear liquids. (Carol Barrera MD R2) Objective Vitals Vital Signs Date Time Temp Pulse Resp B/P (MAP) Pulse Ox O2 Delivery O2 Flow Rate FiO2 01/12/17 08:44 98.2 72 16 92/52 (65) 98 01/12/17 08:00 63 01/12/17 03:48 65 01/12/17 03:04 98.5 65 18 110/59 (76) 95 01/12/17 00:15 97.9 63 18 111/59 (76) 97 01/12/17 00:10 63 01/11/17 22:31 58 01/11/17 20:30 95 01/11/17 19:53 98.7 62 18 111/63 (79) 99 01/11/17 17:33 98.3 61 18 103/58 (73) 97 01/11/17 16:05 56 01/11/17 14:06 97.7 56 20 130/65 (86) 98 01/11/17 13:10 100 21 01/11/17 12:03 68 16 142/76 (98) 100 I/O 01/11/17 01/11/17 01/11/17 01/12/17 01/12/17 01/12/17 06:59 14:59 22:59 06:59 14:59 22:59 Intake Total 450 ml Output Total 75 ml Balance -75 ml 450 ml Intake IV Total 450 ml Output Stool Total 75 ml (Carol Barrera MD R2) Result Diagram: 01/11/17 1040 01/11/17 1040 A/P Assessment and Plan 56 year old male with end-stage renal disease presents with one-day history of intractable nausea, vomiting, increased colostomy output, abdominal pain and leukocytosis found to have C difficile infection. His elevated WBC puts him in the severe category to be treated with oral vancomycin. Today, patient is doing well with resolution of nausea and vomiting although he continues to have abdominal pain. He tolerated a PO challenge and was deemed stable for discharge this morning so that he could make his dialysis appointment at 9:30 am. Discharge Planning Plan to discharge today due to resolution of nausea and vomiting (EkoCarol MD R2) Attending Attestation Patient seen, examined, and discussed with resident team. I agree with assessment and management as documented and discussed with me. Pt reports nausea has improved. Plan for discharge today if able to tolerate PO. Discussed oral antibiotic, vancomycin, and importance of taking as prescribed to treat C Diff infection. (Kristi Gandhi MD) Problem List: (1) Intractable nausea and vomiting ICD Codes: R11.2 - Nausea with vomiting, unspecified Status: Resolved Plan: -Afebrile on admission, WBC elevated at 22 -Positive for C difficile infection - will treat with Vancomycin 125 mg PO QID - patient to complete 14 days of therapy -Continue Reglan 10 mg every 6 hours IV -Completed 1 bag of normal saline 500 mL at 50 mL/hour -Advance to clear liquid diet as tolerated -Morphine 4 mg IV every 3 hours for abdominal pain greater than 5 -Magnesium wnl at 2.5, phosphorus elevated at 6.4 (2) ESRD (end stage renal disease) on dialysis ICD Codes: N18.6 - End stage renal disease; Z99.2 - Dependence on renal dialysis Status: Chronic Plan: -Creatinine 7.34 with BUN of 31 -Patient on Sunday, , Sunday schedule -He missed 's dialysis because he came to the hospital -Dialysis clinic center contacted and patient has appointment for today at 9:30 am (3) DM (diabetes mellitus) ICD Codes: E11.9 - Diabetes mellitus Status: Chronic Plan: -Random glucose 185 -A1C pending -Glucose monitoring with supplemental insulin - pt has not required any SSI, serum glucose readings were 97 and 104 (4) Chronic Medical Problems Plan: Diabetes: Accu-Cheks with SSI GERD: Protonix 40mg IV Q12h CAD: Continue metoprolol 50 mg by mouth twice a day Hypertension: Continue home Vasotec 10 mg by mouth daily and amlodipine 10 mg by mouth daily. Hold anti-hypertensive medications for SBP<110, DBP <60 Anxiety: Continue BuSpar and 10 mg by mouth twice a day Diabetic neuropathy: Continue Lyrica (5) FEN/DVT PPX/GI PPX/Nursing Orders Plan: Fluids: oral fluids Electrolytes: Will monitor and replace as needed Nutrition: NPO except meds DVT Prophylaxis: Heparin subcutaneous Q8h GI Prophylaxis: Protonix 40mg PO IV Q12h Constipation prophylaxis: not required -Vitals Q4h -Monitor I's and O's -clinical research monitor with telemetry with continuous vital signs -Activity OOB with assistance Disposition: Plan to discharge today due to resolution of nausea and vomiting (Carol Barrera MD R2) Problem Qualifiers (1) Intractable nausea and vomiting: Qualified Codes: R11.2 - Nausea with vomiting, unspecified (2) DM (diabetes mellitus): Qualified Codes: E11.42 - Type 2 diabetes mellitus with diabetic polyneuropathy Carol Barrera MD R2 Jan 12, 2017 11:23 Kristi Gandhi MD Jan 12, 2017 14:31
--- NOTE | 2017-01-12 11:57 | EKG ---
Date Performed: 01/11/2017 Time Performed: 11:20:05 PTAGE: 56 years EKG: SINUS BRADYCARDIA MINIMAL VOLTAGE CRITERIA FOR LVH, CONSIDER NORMAL VARIANT POSSIBLE INFERI OR MYOCARDIAL INFARCTION ABNORMAL ECG PREVIOUS TRACING : 12/12/2016 19.15 No significant change from previous tracing noted. DOCTOR: Juanito Sterling Interpretating Date/Time 01/12/2017 11:56:07
[2017-01-12 16:31] LABS: HEMOGLOBIN A1b 2.2 %; HEMOGLOBIN Ao 84.3 %; HEMOGLOBIN LA1C 2.5 %; HEMOGLOBIN P3 5.5 %
== END 2017-01-12 09:28 | disposition home or self-care (01) ==
LOC: NEPE 10:15 → NEDH 12:30 → NEPGCP 14:04
PROVIDERS: ADMIT Family Medicine; ATTEND Family Medicine
DX: A04.7 Enterocolitis due to Clostridium difficile (principal); K31.84 Gastroparesis; E11.43 Type 2 diabetes mellitus with diabetic autonomic (poly)neuropathy; I13.2 Hypertensive heart and chronic kidney disease with heart failure and with stage 5 chronic kidney disease, or end stage renal disease; N18.6 End stage renal disease; I50.9 Heart failure, unspecified; E11.22 Type 2 diabetes mellitus with diabetic chronic kidney disease; E78.00 Pure hypercholesterolemia, unspecified; I25.2 Old myocardial infarction; I73.9 Peripheral vascular disease, unspecified; I25.10 Atherosclerotic heart disease of native coronary artery without angina pectoris; K21.9 Gastro-esophageal reflux disease without esophagitis; Z79.4 Long term (current) use of insulin; Z89.411 Acquired absence of right great toe; Z99.2 Dependence on renal dialysis; Z93.3 Colostomy status; Z95.5 Presence of coronary angioplasty implant and graft
CPT/HCPCS: 74000; 80053; 82550; 82948; 83036; 83605; 83690; 83735; 84100; 85025; 87205; 87493; 87506; 93005; 96361; 96372; 96374; 96375; 96376; 99285; C9113; G0378; J1644; J2270; J2405; J2765; J7040; J7050

== ENCOUNTER 2017-01-20 16:45 | Emergency (ER) | payer OTHER, MEDICARE ==
[~2017-01-20] VITALS: Ht 170.2 cm; Wt 65.0 kg
[~2017-01-20 16:45] MED LIST changes: +LACTCAP8 PO; -METR-1 PO; +REGL5TAB PO; +VANC125C3 PO; +ZOFR4TAB3 SL
--- NOTE | 2017-01-20 17:13 | PD ---
HPI Chief Complaint: abdominal pain Time Seen by Provider: 17:09 Travel History International Travel<30 days: No Contact w/Intl Traveler<30days: No History of Present Illness HPI 56 YO M with PMH of diabetic gastroparesis, perforated viscus, colitis, ESRD on dialysis Sunday, , Sunday presents to the ED for evaluation of nausea and vomiting status post dialysis today. Patient states that he frequently has these same symptoms after dialysis. He denies fever, chills, abdominal pain, dysuria. He states he only urinates about once a day. He states that he took a single dose of Zofran before arrival with no improvement of symptoms. Patient is followed by the [facility], Dr. 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 PFSH Past Medical History Hx Anticoagulant Therapy: No Arthritis: No Asthma: No Blood Disorders: No Anxiety: Yes Depression: Yes Heart Rhythm Problems: No Cancer: No Cardiac Catheterization: Yes Cardiovascular Problems: Yes (CHF, HEART ATTACK, PVD CAD ) High Cholesterol: Yes Chest Pain: No Congestive Heart Failure: Yes COPD: No Cerebrovascular Accident: No Diabetes: Yes Dialysis: Yes (RIGHT CHEST VAS CATH) Diminished Hearing: No Endocrine: Yes Gastrointestinal Disorders: Yes (gastroparesis, GERD, COLOSTOMY) GERD: Yes Genitourinary: Yes (CKD ) Headaches: No Hepatitis: No Hiatal Hernia: Yes Hypertension: Yes Immune Disorder: No Inguinal Hernia: Yes Implanted Vascular Access Dvce: Yes (L FOREARM fistula) Kidney Stones: Yes Musculoskeletal: No Neurologic: Yes (neuropathy FEET AND HANDS) Psychiatric: Yes Reproductive: No Respiratory: Yes (HX PNEUMONIA) Immunizations Current: Yes Migraines: No Myocardial Infarction: Yes (2003) Renal Failure: Yes (chronic kidney disease on hemodialysis) Seizures: No Sleep Apnea: No Thyroid Disease: No Ulcer: No Past Surgical History Abdominal Surgery: Yes (BOWEL RESECTION, COLOSTOMY) AICD: No Arteriovenous Shunt: No Body Medical Devices: Cardiac Stent, PERMACATH UPPER LEFT CHEST Cardiac Surgery: No Coronary Stent: Yes Ear Surgery: No Endocrine Surgery: No Eye Surgery: No Genitourinary Surgery: No Gynecologic Surgery: No Insulin Pump: No Joint Replacement: No Oral Surgery: No Pacemaker: No Thoracic Surgery: No Other Surgery: Yes (KELLY fistula, right leg fem pop bypass) Social History Alcohol Use: No Tobacco Use: Yes (1/2 PPD) Substance Use: No Allergies-Medications (Allergen,Severity, Reaction): Coded Allergies: No Known Allergies (Unverified , 01/20/17) Reported Meds & Prescriptions Reported Meds & Active Scripts Active Phenergan (Promethazine HCl) 25 Mg Tablet 25 Mg PO Q6H PRN Zofran Odt (Ondansetron Odt) 4 Mg Tab 4 Mg SL Q6HR PRN Urecholine (Bethanechol Chloride) 10 Mg Tab 10 Mg PO Q8HR Protonix (Pantoprazole Sodium) 40 Mg Tab 40 Mg PO BID Reported Lyrica (Pregabalin) 75 Mg Cap 75 Mg PO BID Enalapril (Enalapril Maleate) 10 Mg Tab 10 Mg PO DAILY Norvasc (Amlodipine Besylate) 10 Mg Tab 10 Mg PO DAILY Buspirone (Buspirone HCl) 10 Mg Tab 10 Mg PO BID Metoprolol Tartrate 50 Mg Tab 50 Mg PO BID Review of Systems Except as stated in HPI: all other systems reviewed are Neg Physical Exam Narrative GENERAL: Thin, chronically ill-appearing white male in no acute distress. SKIN: Focused skin assessment warm/dry. HEAD: Normocephalic. EYES: No scleral icterus. No injection or drainage. NECK: Supple, trachea midline. No JVD or lymphadenopathy. CARDIOVASCULAR: Regular rate and rhythm without murmurs, gallops, or rubs. RESPIRATORY: Breath sounds clear and equal bilaterally. No accessory muscle use. GASTROINTESTINAL: Abdomen soft, non-tender, nondistended. Active bowel sounds. No palpable masses. Colostomy in place with brown stool in the bag. MUSCULOSKELETAL: No cyanosis, or edema. BACK: Nontender without obvious deformity. No CVA tenderness. Data Data Last Documented VS Vital Signs Date Time Temp Pulse Resp B/P (MAP) Pulse Ox O2 Delivery O2 Flow Rate FiO2 01/20/17 21:00 83 16 157/74 (101) 100 01/20/17 18:45 Room Air 01/20/17 17:21 97.6 Orders Orders Complete Blood Count With Diff (01/20/17 17:12) Comprehensive Metabolic Panel (01/20/17 17:12) Lipase (01/20/17 17:12) Lactic Acid (01/20/17 17:12) Prothrombin Time / Inr (Pt) (01/20/17 17:12) Act Partial Throm Time (Ptt) (01/20/17 17:12) Iv Access Insert/Monitor (01/20/17 17:12) Ecg Monitoring (01/20/17 17:12) Oximetry (01/20/17 17:12) Morphine Inj (Morphine Inj) (01/20/17 17:15) Ondansetron Inj (Zofran Inj) (01/20/17 17:15) Sodium Chloride 0.9% Flush (Ns Flush) (01/20/17 17:15) Electrocardiogram (01/20/17 17:12) Pantoprazole Inj (Protonix Inj) (01/20/17 18:15) Ct Abd/Pel W/O Iv Contrast (01/20/17 ) Labs Laboratory Tests Test 01/20/17 17:30 01/20/17 17:35 White Blood Count 13.4 TH/MM3 Red Blood Count 4.00 MIL/MM3 Hemoglobin 11.8 GM/DL Hematocrit 35.7 % Mean Corpuscular Volume 89.4 FL Mean Corpuscular Hemoglobin 29.4 PG Mean Corpuscular Hemoglobin Concent 32.9 % Red Cell Distribution Width 15.6 % Platelet Count 181 TH/MM3 Mean Platelet Volume 9.6 FL Neutrophils (%) (Auto) 81.3 % Lymphocytes (%) (Auto) 7.9 % Monocytes (%) (Auto) 7.7 % Eosinophils (%) (Auto) 2.6 % Basophils (%) (Auto) 0.5 % Neutrophils # (Auto) 10.9 TH/MM3 Lymphocytes # (Auto) 1.1 TH/MM3 Monocytes # (Auto) 1.0 TH/MM3 Eosinophils # (Auto) 0.3 TH/MM3 Basophils # (Auto) 0.1 TH/MM3 CBC Comment AUTO DIFF Differential Total Cells Counted 100 Neutrophils % (Manual) 82 % Band Neutrophils % 5 % Lymphocytes % 3 % Monocytes % 6 % Eosinophils % 2 % Neutrophils # (Manual) 11.9 TH/MM3 Metamyelocytes 2 % Differential Comment FINAL DIFF MANUAL Platelet Estimate NORMAL Platelet Morphology Comment NORMAL Prothrombin Time 10.9 SEC Prothromb Time International Ratio 1.0 RATIO Activated Partial Thromboplast Time 23.7 SEC Blood Urea Nitrogen 13 MG/DL Creatinine 4.16 MG/DL Random Glucose 149 MG/DL Total Protein 7.6 GM/DL Albumin 3.4 GM/DL Calcium Level 8.4 MG/DL Alkaline Phosphatase 80 U/L Aspartate Amino Transf (AST/SGOT) 13 U/L Alanine Aminotransferase (ALT/SGPT) 11 U/L Total Bilirubin 0.4 MG/DL Sodium Level 139 MEQ/L Potassium Level 3.8 MEQ/L Chloride Level 106 MEQ/L Carbon Dioxide Level 24.7 MEQ/L Anion Gap 8 MEQ/L Estimat Glomerular Filtration Rate 15 ML/MIN Lipase 71 U/L Lactic Acid Level 0.6 mmol/L MDM Medical Decision Making Medical Screen Exam Complete: Yes Emergency Medical Condition: Yes Differential Diagnosis Chronic abdominal pain versus ESRD versus diabetic gastric paresis versus metabolic derangement versus other Narrative Course 56 YO M with PMH of diabetic gastroparesis, perforated viscus, colitis, ESRD on dialysis Sunday, , Sunday presents to the ED for evaluation of nausea and vomiting status post dialysis today. Patient states that he frequently has these same symptoms after dialysis. He denies fever, chills, abdominal pain, dysuria. He states he only urinates about once a day. He states that he took a single dose of Zofran before arrival with no improvement of symptoms. Patient is followed by the [facility], Dr. 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 Vitals reviewed. Physical exam reveals a chronically ill-appearing white male in no acute distress. Abdominal exam is completely benign. No CVA tenderness. No lower extremity edema. He was administered 2 mg morphine, 4 mg Zofran, 40 mg Protonix. EKG rate 73, sinus rhythm. Normal intervals. LAD. No acute ST changes. Reviewed by Dr. Orona Review of lab work reveals that the patient is essentially at baseline. He was unable to provide a urine sample. I discussed the patient with Dr. Orona who recommends CT of the abdomen. No acute solid organ abnormalities were demonstrated. Other findings are similar to previous CT studies. The patient is prescribed a short course of Phenergan, instructed to follow up with his primary care provider and blast furnace keeper helper. He is agreeable with this plan. He is stable and discharged home. Diagnosis Primary Impression: Chronic generalized abdominal pain Referrals: [facility] Patient Instructions: Abdominal Pain (ED), General Instructions Additional Instructions: Rest, hydrate. Take Phenergan as prescribed. Follow-up with the [facility] and blast furnace keeper helper. Return to the ED for any urgent or emergent medical condition. Med/Other Pt SpecificInfo: Prescription(s) given Scripts Promethazine (Phenergan) 25 Mg Tablet 25 MG PO Q6H Y for NAUSEA OR VOMITING, #15 TAB 0 Refills Prov: Mady Orona 01/20/17 Disposition: 01 DISCHARGE HOME Condition: Stable Sophie Maloney Jan 20, 2017 17:13
[2017-01-20] MEDS ORDERED: SODIUM CHLORIDE 0.9% FLUSH 10 ML FLUSH IV FLUSH PRN (17:15)
[2017-01-20] MEDS ORDERED: MORPHINE SULFATE 4 MG/ML INJ IV PUSH ONE (17:15)
[2017-01-20] MEDS ORDERED: ONDANSETRON HCL 4 MG/2 ML VIAL IVP ONE (17:15)
[2017-01-20 17:21] VITALS: BP 177/82; PULSE 63; RESP 20; TEMP 97.6; O2SAT 100
[2017-01-20 17:25] VITALS: O2SAT 100
[2017-01-20 17:54] LABS: AUTOMATED NEUTROPHIL # 10.9 TH/MM3 (1.8-7.7); BASOPHIL # 0.1 TH/MM3 (0-0.2); BASOPHIL % 0.5 % (0.0-2.0); EOSINOPHIL # 0.3 TH/MM3 (0-0.4); EOSINOPHIL % 2.6 % (0.0-4.0); HEMATOCRIT 35.7 % (39.0-51.0); LYMPH % 7.9 % (9.0-44.0); LYMPHOCYTE # 1.1 TH/MM3 (1.0-4.8); MEAN CELL VOLUME 89.4 FL (80.0-100.0); MEAN CORPUSCULAR HEMOGLOBIN 29.4 PG (27.0-34.0); MEAN CORPUSCULAR HGB CONC 32.9 % (32.0-36.0); MONO % 7.7 % (0.0-8.0); NEUT % 81.3 % (16.0-70.0); PLATELET COUNT 181 TH/MM3 (150-450); RED CELL DISTRIBUTION WIDTH 15.6 % (11.6-17.2); WHITE BLOOD COUNT 13.4 TH/MM3 (4.0-11.0)
[2017-01-20 17:59] LABS: APTT (PATIENT) 23.7 SEC (24.3-30.1); HEMO FLAGS AUTO DIFF; PROTHROMBIN TIME - PATIENT 10.9 SEC (9.8-11.6)
[2017-01-20 18:15] LABS: ANION GAP 8 MEQ/L (5-15); AST (GOT) 13 U/L (15-37); BICARBONATE 24.7 MEQ/L (21.0-32.0); BLOOD UREA NITROGEN 13 MG/DL (7-18); CHLORIDE 106 MEQ/L (98-107); GLOMERULAR FILTRATION RATE 15 ML/MIN (>89); POTASSIUM 3.8 MEQ/L (3.5-5.1); SODIUM (NA) 139 MEQ/L (136-145)
[2017-01-20] MEDS ORDERED: PANTOPRAZOLE SODIUM 40 MG VIAL IV PUSH ONE (18:15)
[2017-01-20 18:18] LABS: ALKALINE PHOSPHATASE 80 U/L (45-117); ALT (GPT) 11 U/L (12-78); TOTAL BILIRUBIN ADULT 0.4 MG/DL (0.2-1.0)
[2017-01-20 18:31] LABS: BANDS 5 % (0-6); EOSINOPHILS 2 % (0-4); METAMYELOCYTES 2 % (0-1); NEUTROPHIL # MANUAL DIFF 11.9 TH/MM3 (1.8-7.7); POLYS (SEG NEUTROPHILS) 82 % (16-70); WBC DIFF SAMPLE 100
[2017-01-20 18:32] LABS: PLATELET ESTIMATE SMEAR NORMAL (NORMAL); PLATELET MORPHOLOGY NORMAL (NORMAL); SCAN/DIFF FINAL DIFF MANUAL
[2017-01-20 18:45] VITALS: BP 174/79; PULSE 62; RESP 17; O2SAT 100
--- NOTE | 2017-01-20 19:55 | RADRPT ---
EXAM DATE/TIME: 01/20/2017 19:21 [facility] COMPARISON: No previous studies available for comparison. INDICATIONS : Umbilical abdomen pain today. ORAL CONTRAST: No oral contrast ingested. RADIATION DOSE: 9.96 CTDIvol (mGy) MEDICAL HISTORY : Congestive heart failure. Hypertension. renal failure, diabetes SURGICAL HISTORY : Colon resection. Colostomy. ENCOUNTER: Initial ACUITY: 1 day PAIN SCALE: 7/10 LOCATION: umbilical abdomen TECHNIQUE: Volumetric scanning of the abdomen and pelvis was performed. Using automated exposure control and ad justment of the mA and/or kV according to patient size, radiation dose was kept as low as reasonably achievable to obtain optimal diagnostic quality images. DICOM format image data is available electro nically for review and comparison. FINDINGS: Noncontrast appearance of the liver, spleen, pancreas and adrenal glands within normal limits. A late ral renal atrophy with vascular calcification again noted. No evidence of acute obstructive uropathy. Previous left hemicolectomy. There is a right lower quadrant colostomy. Moderate amount of stool in t he upstream colon. There is no small bowel distention. A left inguinal hernia is again noted, contain s a short segment of nondistended small bowel and also a small amount of ascitic fluid. There is smal l ascites, similar to the prior study. Normal appendix. There is a small to moderate hiatal hernia. CONCLUSION: 1. Chronic renal disease. No acute solid organ abnormality demonstrated. 2. Previous left hemicolectomy with a right lower quadrant colostomy. Moderate stool upstream of the colostomy. Nonobstructive pattern. 3. Left inguinal hernia again noted and continues to contain a short segment of small bowel and also a small amount of ascitic fluid. This is similar to before. No associated obstruction. 4. Small to moderate hiatal hernia. Jan Pastor MD on January 20, 2017 at 19:50 Board Certified Radiologist. This report was verified electronically.
[2017-01-20] MEDS ORDERED: PROM25TA10 PO (20:14)
[2017-01-20 21:00] VITALS: BP 157/74
--- NOTE | 2017-01-21 12:55 | EKG ---
Date Performed: 01/20/2017 Time Performed: 17:43:41 PTAGE: 56 years EKG: Sinus rhythm BORDERLINE LEFT AXIS DEVIATION MINIMAL VOLTAGE CRITERIA FOR LVH, CONSIDER NORMAL VARIANT BORDERLINE ECG PREVIOUS TRACING : 01/20/2017 17.43 No significant change from previous tracing noted. DOCTOR: Juanito Sterling Interpretating Date/Time 01/22/2017 07:18:34
== END 2017-01-20 21:11 | disposition home or self-care (01) ==
LOC: NEPE 16:45
DX: R10.84 Generalized abdominal pain (principal); R11.2 Nausea with vomiting, unspecified; R94.31 Abnormal electrocardiogram [ECG] [EKG]; E11.9 Type 2 diabetes mellitus without complications; I12.0 Hypertensive chronic kidney disease with stage 5 chronic kidney disease or end stage renal disease; N18.6 End stage renal disease; E78.00 Pure hypercholesterolemia, unspecified; I25.2 Old myocardial infarction; F17.200 Nicotine dependence, unspecified, uncomplicated; Z99.2 Dependence on renal dialysis; Z86.59 Personal history of other mental and behavioral disorders; Z86.79 Personal history of other diseases of the circulatory system; Z87.19 Personal history of other diseases of the digestive system; Z86.69 Personal history of other diseases of the nervous system and sense organs; Z87.442 Personal history of urinary calculi
CPT/HCPCS: 74176; 80053; 83605; 83690; 85007; 85027; 85610; 85730; 93005; 96374; 96375; 99285; C9113; J2270; J2405

== ENCOUNTER 2017-02-13 09:59 | Emergency (ER) | payer OTHER, MEDICARE ==
[~2017-02-13] VITALS: Ht 170.2 cm; Wt 68.1 kg
[~2017-02-13 09:59] MED LIST changes: -LACTCAP8 PO; -PERC5TAB12 PO; +PROM25TA10 PO; -REGL5TAB PO; -VANC125C3 PO
[2017-02-13 10:16] VITALS: BP 154/69; PULSE 56; RESP 18; TEMP 98.4; O2SAT 100
--- NOTE | 2017-02-13 10:29 | PD ---
HPI Chief Complaint: Chest Pain Time Seen by Provider: 10:15 Travel History International Travel<30 days: No Contact w/Intl Traveler<30days: No Traveled to known affect area: No History of Present Illness HPI This patient complains of chest pain. Location is left mid chest. Duration is 2 days. 2 days ago he tripped going down steps and his cane jabbed into his left upper chest. He developed bruising to the ribs there. Pain is worse with movement. It was caused by the injury. No alleviating factors. PFSH Past Medical History Hx Anticoagulant Therapy: No Arthritis: No Asthma: No Blood Disorders: No Anxiety: Yes Depression: Yes Heart Rhythm Problems: No Cancer: No Cardiac Catheterization: Yes Cardiovascular Problems: Yes High Cholesterol: Yes Chest Pain: No Congestive Heart Failure: Yes COPD: No Cerebrovascular Accident: No Diabetes: Yes Patient Takes Glucophage: No Dialysis: Yes (left arm fistula) Diminished Hearing: No Endocrine: Yes Gastrointestinal Disorders: Yes (gastroparesis, GERD, COLOSTOMY) GERD: Yes Genitourinary: Yes (CKD ) Headaches: No Hepatitis: No Hiatal Hernia: Yes Hypertension: Yes Immune Disorder: No Inguinal Hernia: Yes Implanted Vascular Access Dvce: Yes (L FOREARM fistula) Kidney Stones: Yes Medical other: Yes (NO BP, BLOOD DRAWING LEFT ARM) Musculoskeletal: No Neurologic: Yes (neuropathy FEET AND HANDS) Psychiatric: Yes Reproductive: No Respiratory: Yes (HX PNEUMONIA) Immunizations Current: Yes Migraines: No Myocardial Infarction: Yes (2003) Pneumonia: Yes Renal Failure: Yes (chronic kidney disease on hemodialysis ) Seizures: No Sleep Apnea: No Thyroid Disease: No Ulcer: No ?: Not Past Surgical History Abdominal Surgery: Yes (BOWEL RESECTION, COLOSTOMY) AICD: No Arteriovenous Shunt: No Body Medical Devices: Cardiac Stent, PERMACATH UPPER LEFT CHEST Cardiac Surgery: No Coronary Stent: Yes Ear Surgery: No Endocrine Surgery: No Eye Surgery: No Genitourinary Surgery: No Gynecologic Surgery: No Insulin Pump: No Joint Replacement: No Neurologic Surgery: No Oral Surgery: No Pacemaker: No Thoracic Surgery: No Other Surgery: Yes (KELLY fistula, right leg fem pop bypass) Social History Alcohol Use: No Tobacco Use: Yes (05/08 PPD) Substance Use: No Allergies-Medications (Allergen,Severity, Reaction): Coded Allergies: No Known Allergies (Unverified , 01/20/17) Reported Meds & Prescriptions Reported Meds & Active Scripts Active Phenergan (Promethazine HCl) 25 Mg Tablet 25 Mg PO Q6H PRN Zofran Odt (Ondansetron Odt) 4 Mg Tab 4 Mg SL Q6HR PRN Urecholine (Bethanechol Chloride) 10 Mg Tab 10 Mg PO Q8HR Protonix (Pantoprazole Sodium) 40 Mg Tab 40 Mg PO BID Reported Lyrica (Pregabalin) 75 Mg Cap 75 Mg PO BID Enalapril (Enalapril Maleate) 10 Mg Tab 10 Mg PO DAILY Norvasc (Amlodipine Besylate) 10 Mg Tab 10 Mg PO DAILY Buspirone (Buspirone HCl) 10 Mg Tab 10 Mg PO BID Metoprolol Tartrate 50 Mg Tab 50 Mg PO BID Review of Systems General / Constitutional: No: Fever Eyes: No: Drainage Cardiovascular: Positive: Chest Pain or Discomfort Respiratory: No: Cough Gastrointestinal: No: Abdominal Pain Physical Exam Narrative RESPIRATORY: Respiratory effort unlabored, no retractions or use of accessory muscles. Breath sounds are clear and symmetric. GASTROINTESTINAL: Abdomen soft, non-tender, nondistended. Positive bowel sounds. No hepato-splenomegaly, or palpable masses. No guarding. Colostomy present in the right side Chest wall: There is some left mid chest bruising. He is tender there. No paradoxical rib movement or crepitus Data Data Last Documented VS Vital Signs Date Time Temp Pulse Resp B/P (MAP) Pulse Ox O2 Delivery O2 Flow Rate FiO2 02/13/17 10:19 62 18 100 Room Air 02/13/17 10:16 98.4 154/69 (97) Orders Orders Chest, Single Ap (02/13/17 ) Oxycodone-Acetamin 5-325 Mg (Percocet (02/13/17 10:30) Renal Functional Panel (02/13/17 11:50) Labs Laboratory Tests Test 02/13/17 12:09 Blood Urea Nitrogen 34 MG/DL Creatinine 6.90 MG/DL Random Glucose 81 MG/DL Albumin 2.8 GM/DL Calcium Level 8.1 MG/DL Phosphorus Level 3.5 MG/DL Sodium Level 143 MEQ/L Potassium Level 4.2 MEQ/L Chloride Level 107 MEQ/L Carbon Dioxide Level 27.1 MEQ/L Anion Gap 9 MEQ/L Estimat Glomerular Filtration Rate 8 ML/MIN MDM Medical Decision Making Medical Screen Exam Complete: Yes Emergency Medical Condition: Yes Medical Record Reviewed: Yes Differential Diagnosis Rib fracture, contusion, pneumothorax Narrative Course I have reviewed the patient's electronic medical record. I reviewed his chest x-ray which shows cardiac megaly but no traumatic injury Vital signs are normal with 100% room air saturation and no laboring of breath Patient's renal physician wanted metabolic studies done to make sure he did not need dialysis more urgent than scheduled. Therefore lab studies were sent Electrolytes are normal creatinine elevated as expected No hyperkalemia or acidosis to suggest dialysis needs to be done urgently Stable for discharge Diagnosis Primary Impression: Contusion of left chest wall Qualified Codes: S20.212A - Contusion of left front wall of thorax, initial encounter Additional Impression: CKD (chronic kidney disease) stage 5, GFR less than 15 ml/min Additional Instructions: The patient was advised to follow up with their physician and return if they worsen. The patient was warned about potential sedation for the medications they will receive on prescription. Med/Other Pt SpecificInfo: Prescription(s) given Disposition: DISCHARGE HOME Condition: Stable Timmy Curry MD Feb 13, 2017 10:29
[2017-02-13] MEDS ORDERED: oxyCODONE/ACETAMINOPHEN 5 MG/325 MG TAB PO ONE (10:30)
--- NOTE | 2017-02-13 10:49 | RADRPT ---
EXAM DATE/TIME: 02/13/2017 10:36 [facility] COMPARISON: CHEST SINGLE AP, November 09, 2016, 17:10. INDICATIONS : Left side chest pain after fall. MEDICAL HISTORY : Congestive heart failure. Hypertension. renal failure, diabetes SURGICAL HISTORY : Colon resection. Colostomy. ENCOUNTER: Initial ACUITY: 3 days PAIN SCORE: 8/10 LOCATION: Bilateral chest FINDINGS: The cardiac silhouette is enlarged in transverse diameter. The lungs are free of acute parenchymal op acity. No effusions are identified. Osseous structures are intact. CONCLUSION: Cardiomegaly. No acute cardiopulmonary disease. James Pinto MD on February 13, 2017 at 10:42 Board Certified Radiologist. This report was verified electronically.
[2017-02-13 12:46] LABS: BICARBONATE 27.1 MEQ/L (21.0-32.0); POTASSIUM 4.2 MEQ/L (3.5-5.1)
[2017-02-13] MEDS ORDERED: TRAM50TA PO (13:46)
== END 2017-02-13 14:10 | disposition home or self-care (01) ==
LOC: NEPD 09:59
DX: S20.212A Contusion of left front wall of thorax, initial encounter (principal); N18.5 Chronic kidney disease, stage 5; I12.0 Hypertensive chronic kidney disease with stage 5 chronic kidney disease or end stage renal disease; E11.9 Type 2 diabetes mellitus without complications; E78.00 Pure hypercholesterolemia, unspecified; I25.2 Old myocardial infarction; F17.200 Nicotine dependence, unspecified, uncomplicated; W18.43XA Slipping, tripping and stumbling without falling due to stepping from one level to another, initial encounter; W22.8XXA Striking against or struck by other objects, initial encounter; Z99.2 Dependence on renal dialysis; Z86.59 Personal history of other mental and behavioral disorders; Z86.79 Personal history of other diseases of the circulatory system; Z87.19 Personal history of other diseases of the digestive system; Z87.39 Personal history of other diseases of the musculoskeletal system and connective tissue; Z86.69 Personal history of other diseases of the nervous system and sense organs
CPT/HCPCS: 71010; 80069; 99284

== ENCOUNTER 2017-02-26 03:35 | Inpatient (IN) | payer OTHER, MEDICARE ==
[~2017-02-26] VITALS: Ht 170.2 cm; Wt 65.0 kg
[2017-02-26] VITALS (19 sets, daily range): BP systolic 132–168; BP diastolic 67–87; PULSE 64–87; RESP 14–18; TEMP 97.3–98.6; O2SAT 74–100
[~2017-02-26 03:35] MED LIST changes: +TRAM50TA PO
[2017-02-26 04:10] LABS: AUTOMATED NEUTROPHIL # 12.4 TH/MM3 (1.8-7.7); BASOPHIL % 0.1 % (0.0-2.0); HEMATOCRIT 24.2 % (39.0-51.0); LYMPH % 5.8 % (9.0-44.0); LYMPHOCYTE # 0.8 TH/MM3 (1.0-4.8); MEAN CORPUSCULAR HEMOGLOBIN 29.8 PG (27.0-34.0); MEAN CORPUSCULAR HGB CONC 32.3 % (32.0-36.0); NEUT % 87.1 % (16.0-70.0); PLATELET COUNT 178 TH/MM3 (150-450); RED BLOOD COUNT 2.63 MIL/MM3 (4.50-5.90); RED CELL DISTRIBUTION WIDTH 15.4 % (11.6-17.2); WHITE BLOOD COUNT 14.3 TH/MM3 (4.0-11.0)
[2017-02-26 04:11] LABS: HEMO FLAGS AUTO DIFF
--- NOTE | 2017-02-26 04:19 | PD ---
HPI Chief Complaint: Chest Pain Time Seen by Provider: 04:16 Travel History International Travel<30 days: No Contact w/Intl Traveler<30days: No Traveled to known affect area: No History of Present Illness HPI 56-year-old male with history of hypertension, diabetes, hypercholesterolemia, PVD, CAD, ESRD on HD (,,), here for evaluation of chest pain. Chest pain started about 2 hours prior to arrival, is left-sided, described as pressure and sharp, radiates to his neck, left arm, and back, started while at rest. He was given nitroglycerin by EMS which slightly relieved his pain. He was also given 162 mg of aspirin and Zofran for nausea. At time of my assessment the patient rates the pain as 7 out of 10, constant. He states that it feels like previous SC for which she needed a stent for several years ago. No history of DVT or PE. PFSH Past Medical History Hx Anticoagulant Therapy: No Arthritis: No Asthma: No Blood Disorders: No Anxiety: Yes Depression: Yes Heart Rhythm Problems: No Cancer: No Cardiac Catheterization: Yes Cardiovascular Problems: Yes High Cholesterol: Yes Chest Pain: No Congestive Heart Failure: Yes COPD: No Cerebrovascular Accident: No Diabetes: Yes Patient Takes Glucophage: No Dialysis: Yes (left arm fistula) Diminished Hearing: No Endocrine: Yes Gastrointestinal Disorders: Yes (gastroparesis, GERD, COLOSTOMY) GERD: Yes Genitourinary: Yes (CKD ) Headaches: No Hepatitis: No Hiatal Hernia: Yes Hypertension: Yes Immune Disorder: No Inguinal Hernia: Yes Implanted Vascular Access Dvce: Yes (L FOREARM fistula) Kidney Stones: Yes Medical other: Yes (NO BP, BLOOD DRAWING LEFT ARM) Musculoskeletal: No Neurologic: Yes (neuropathy FEET AND HANDS) Psychiatric: Yes Reproductive: No Respiratory: Yes (HX PNEUMONIA) Immunizations Current: Yes Migraines: No Myocardial Infarction: Yes (2003) Pneumonia: Yes Renal Failure: Yes (chronic kidney disease on hemodialysis ) Seizures: No Sleep Apnea: No Thyroid Disease: No Ulcer: No Past Surgical History Abdominal Surgery: Yes (BOWEL RESECTION, COLOSTOMY) AICD: No Arteriovenous Shunt: No Body Medical Devices: Cardiac Stent, PERMACATH UPPER LEFT CHEST Cardiac Surgery: No Coronary Stent: Yes Ear Surgery: No Endocrine Surgery: No Eye Surgery: No Genitourinary Surgery: No Gynecologic Surgery: No Insulin Pump: No Joint Replacement: No Neurologic Surgery: No Oral Surgery: No Pacemaker: No Thoracic Surgery: No Other Surgery: Yes (KELLY fistula, right leg fem pop bypass) Social History Alcohol Use: No Tobacco Use: Yes (1/2 PPD) Substance Use: No Allergies-Medications (Allergen,Severity, Reaction): Coded Allergies: No Known Allergies (Unverified , 02/26/17) Reported Meds & Prescriptions Reported Meds & Active Scripts Active Tramadol (Tramadol HCl) 50 Mg Tab 50 Mg PO Q6H PRN Phenergan (Promethazine HCl) 25 Mg Tablet 25 Mg PO Q6H PRN Zofran Odt (Ondansetron Odt) 4 Mg Tab 4 Mg SL Q6HR PRN Urecholine (Bethanechol Chloride) 10 Mg Tab 10 Mg PO Q8HR Protonix (Pantoprazole Sodium) 40 Mg Tab 40 Mg PO BID Reported Lyrica (Pregabalin) 75 Mg Cap 75 Mg PO BID Enalapril (Enalapril Maleate) 10 Mg Tab 10 Mg PO DAILY Norvasc (Amlodipine Besylate) 10 Mg Tab 10 Mg PO DAILY Buspirone (Buspirone HCl) 10 Mg Tab 10 Mg PO BID Metoprolol Tartrate 50 Mg Tab 50 Mg PO BID Review of Systems Except as stated in HPI: all other systems reviewed are Neg Physical Exam Narrative GENERAL: Well-developed, well-nourished, no apparent distress. SKIN: Focused skin assessment warm/dry. HEAD: Atraumatic. Normocephalic. EYES: Pupils equal and round. No scleral icterus. No injection or drainage. ENT: Mucous membranes pink and moist. NECK: Trachea midline. No JVD. CARDIOVASCULAR: Regular rate and rhythm. Distal pulses brisk and equal bilaterally. RESPIRATORY: No accessory muscle use. Clear to auscultation. Breath sounds equal bilaterally. GASTROINTESTINAL: Abdomen soft, non-tender, nondistended. Colostomy with brown stool. MUSCULOSKELETAL: No obvious deformities. No clubbing. No cyanosis. No edema. NEUROLOGICAL: Awake and alert. No obvious cranial nerve deficits. Motor grossly within normal limits. Normal speech. PSYCHIATRIC: Appropriate mood and affect; insight and judgment normal. Data Data Last Documented VS Vital Signs Date Time Temp Pulse Resp B/P (MAP) Pulse Ox O2 Delivery O2 Flow Rate FiO2 02/26/17 04:32 82 16 142/71 (94) 98 Room Air 02/26/17 03:40 97.9 Orders Orders Electrocardiogram (02/26/17 03:57) Complete Blood Count With Diff (02/26/17 03:57) Basic Metabolic Panel (Bmp) (02/26/17 03:57) Ckmb (Isoenzyme) Profile (02/26/17 03:57) Troponin I (02/26/17 03:57) Chest, Single Ap (02/26/17 03:57) Iv Access Insert/Monitor (02/26/17 03:57) Ecg Monitoring (02/26/17 03:57) Oxygen Administration (02/26/17 03:57) Oximetry (02/26/17 03:57) Aspirin Chew (Aspirin Chew) (02/26/17 04:30) Nitroglycerin Sl (Nitrostat Sl) (02/26/17 04:30) Morphine Inj (Morphine Inj) (02/26/17 04:30) Type And Screen (02/26/17 04:54) Consult Cardiology (02/26/17 ) Red Blood Cells (Rbc) (02/26/17 04:57) Blood Product Administration (02/26/17 04:57) Pravastatin (Pravachol) (02/26/17 09:00) Consult Nephrology (02/26/17 ) Admit To Inpatient (02/26/17 ) Vital Signs (Adult) Q4H (02/26/17 04:54) Activity Oob With Assistance (02/26/17 04:54) Desk Officer / Telemetry .CONTINUOUS (02/26/17 04:54) Intake + Output WATSON.QSHIFT (02/26/17 04:54) Diet Heart Healthy (02/26/17 Breakfast) Sodium Chloride 0.9% Flush (Ns Flush) (02/26/17 05:00) Sodium Chloride 0.9% Flush (Ns Flush) (02/26/17 09:00) Ondansetron Inj (Zofran Inj) (02/26/17 05:00) Comprehensive Metabolic Panel (02/27/17 06:00) Complete Blood Count With Diff (02/27/17 06:00) Troponin I (02/26/17 10:00) Troponin I (02/26/17 16:00) Acetaminophen (Tylenol) (02/26/17 05:00) Acetamin-Hydrocod 325-5 Mg ([place] 5-325 (02/26/17 05:00) Morphine Inj (Morphine Inj) (02/26/17 05:00) Docusate Sodium-Senna (Kawnal-Colace) (02/26/17 09:00) Magnesium Hydroxide Liq (Milk Of Magnesi (02/26/17 05:00) Sennosides (Senokot) (02/26/17 05:00) Bisacodyl Supp (Dulcolax Supp) (02/26/17 05:00) Lactulose Liq (Lactulose Liq) (02/26/17 05:00) Inpatient Certification (02/26/17 ) Metoprolol Tartrate (Lopressor) (02/26/17 09:00) Labs Laboratory Tests Test 02/26/17 04:02 White Blood Count 14.3 TH/MM3 Red Blood Count 2.63 MIL/MM3 Hemoglobin 7.8 GM/DL Hematocrit 24.2 % Mean Corpuscular Volume 92.0 FL Mean Corpuscular Hemoglobin 29.8 PG Mean Corpuscular Hemoglobin Concent 32.3 % Red Cell Distribution Width 15.4 % Platelet Count 178 TH/MM3 Mean Platelet Volume 9.5 FL Neutrophils (%) (Auto) 87.1 % Lymphocytes (%) (Auto) 5.8 % Monocytes (%) (Auto) 7.0 % Eosinophils (%) (Auto) 0.0 % Basophils (%) (Auto) 0.1 % Neutrophils # (Auto) 12.4 TH/MM3 Lymphocytes # (Auto) 0.8 TH/MM3 Monocytes # (Auto) 1.0 TH/MM3 Eosinophils # (Auto) 0.0 TH/MM3 Basophils # (Auto) 0.0 TH/MM3 CBC Comment AUTO DIFF Differential Total Cells Counted 100 Neutrophils % (Manual) 88 % Band Neutrophils % 1 % Lymphocytes % 3 % Monocytes % 6 % Neutrophils # (Manual) 12.9 TH/MM3 Myelocytes 1 % Differential Comment FINAL DIFF MANUAL Blastocytes 1 % Platelet Estimate NORMAL Platelet Morphology Comment NORMAL Basophilic Stippling FAINT Ovalocytes 1+ Blood Urea Nitrogen 46 MG/DL Creatinine 5.40 MG/DL Random Glucose 366 MG/DL Calcium Level 7.8 MG/DL Sodium Level 138 MEQ/L Potassium Level 3.8 MEQ/L Chloride Level 106 MEQ/L Carbon Dioxide Level 21.4 MEQ/L Anion Gap 11 MEQ/L Estimat Glomerular Filtration Rate 11 ML/MIN Total Creatine Kinase 55 U/L Troponin I 0.32 NG/ML MDM Medical Decision Making Medical Screen Exam Complete: Yes Emergency Medical Condition: Yes Medical Record Reviewed: Yes Interpretation(s) EKG: Sinus, rate 84, leftward axis, LVH, no ST segment elevations. Differential Diagnosis ACS, pneumothorax, pericarditis, PE, pneumonia Narrative Course Vital signs reviewed. CBC: WBC 14.3, hemoglobin 7.8, hematocrit 24.2, platelets 178, neutrophils 87%. BMP: BUN 46, creatinine 5.4, random glucose 366. Troponin is 0.32. Patient was given 1 cc 2 mg of aspirin by EMS and another 162 mg by me. His pain improved with morphine and nitroglycerin. He was made aware of all findings and is currently pain-free. Stool is heme-negative and brown. Case discussed with on-call carbide tool maker Dr. Juárez who recommends transfusing the patient with PRBCs and holding heparin at this time as the patient's symptoms are most likely secondary to ischemia. Patient made aware of all findings and plan for admission as well as blood transfusion. Case discussed with hospitalist Dr. Carranza who will admit the patient to her service. Diagnosis Primary Impression: NSTEMI (non-ST elevated myocardial infarction) Additional Impression: Anemia Qualified Codes: D64.9 - Anemia, unspecified Admitting Information Admitting Physician Requests: Admit Luis Alberto Sheikh MD Feb 26, 2017 04:19
[2017-02-26] MEDS ORDERED: ASPIRIN 81 MG CHEW TAB PO ONE (04:30)
[2017-02-26] MEDS ORDERED: NITROGLYCERIN 0.4 MG SL 25 TABS/BTL SL ONE (04:30)
[2017-02-26] MEDS ORDERED: MORPHINE SULFATE 4 MG/ML INJ IV PUSH ONE (04:30)
[2017-02-26 04:33] LABS: BICARBONATE 21.4 MEQ/L (21.0-32.0); POTASSIUM 3.8 MEQ/L (3.5-5.1)
[2017-02-26 04:52] LABS: BANDS 1 % (0-6); BLASTS 1 % (0-0); MYELOCYTES 1 % (0-0); NEUTROPHIL # MANUAL DIFF 12.9 TH/MM3 (1.8-7.7); POLYS (SEG NEUTROPHILS) 88 % (16-70); WBC DIFF SAMPLE 100
[2017-02-26 04:53] LABS: SCAN/DIFF FINAL DIFF MANUAL
[2017-02-26 04:54] LABS: OVALOCYTES 1+ (NORMAL); PLATELET ESTIMATE SMEAR NORMAL (NORMAL); PLATELET MORPHOLOGY NORMAL (NORMAL)
[2017-02-26] MEDS ORDERED: NITROGLYCERIN 2% OINT 1 GM PACKET TOPICAL PRN (05:00)
[2017-02-26] MEDS ORDERED: MAGNESIUM HYDROXIDE SUSP 30 ML CUP PO PRN (05:00)
[2017-02-26] MEDS ORDERED: ONDANSETRON HCL 4 MG/2 ML VIAL IVP PRN (05:00)
[2017-02-26] MEDS ORDERED: SENNOSIDES 8.6 MG TAB PO PRN (05:00)
[2017-02-26] MEDS ORDERED: ACETAMINOPHEN 325 MG TAB PO PRN ×2 (05:00→10:45)
[2017-02-26] MEDS ORDERED: SODIUM CHLORIDE 0.9% FLUSH 10 ML FLUSH IV FLUSH PRN ×2 (05:00→10:45)
[2017-02-26] MEDS ORDERED: LACTULOSE SYRUP 20 GM/30 ML CUP PO PRN (05:00)
[2017-02-26] MEDS ORDERED: BISACODYL 10 MG SUPP RECTAL PRN (05:00)
[2017-02-26] MEDS ORDERED: ACETAMINOPHEN/HYDROcodone 325 MG/5 MG TAB PO PRN (05:00)
--- NOTE | 2017-02-26 05:13 | HHI.HP ---
[facility] Admission Diagnosis Diagnoses: (1) NSTEMI (non-ST elevated myocardial infarction) Diagnosis: Principal (2) ESRD on hemodialysis Diagnosis: Principal (3) Anemia Diagnosis: Principal (4) Leukocytosis Diagnosis: Principal (5) DM (diabetes mellitus) Diagnosis: Principal Travel History International Travel<30 Days: No Contact w/Intl Traveler <30 Da: No Traveled to Known Affected Are: No History of Present Illness This is a 56-year-old male with PMH of Anxiety, Depression, HTN, Hyperlipidemia , PVD and ESRD on HD who was brought to the ER by EMS secondary to complaints of acute onset of chest pain starting few hours prior to arrival. Notes pain at rest, +radiation to neck and LUE. S/p NTG by EMS w/ improvement. On arrival, BP 142/71, HR 82, O2 sat 98% on RA, Afebrile. WBC 14.3. Hemoglobin 7.8, previously 11.8 on 01/20/17. Creatinine 5.40, previously 6.90 on 02/13/17. BS 366. Trop 0.32. Hemoccult negative on exam. CXR w/ no acute findings. Currently chest pain free. Dr. Juárez consulted by ER physician , recommended pRBC transfusion, hold off on Heparin for now. Review of Systems ROS: 14 point review of systems otherwise negative. Past Family Social History Past Medical History PMH: Anxiety, Depression, HTN, Hyperlipidemia, PVD and ESRD on HD Past Surgical History PAST SURGICAL HISTORY: Bowel Resection, Colostomy, Permacath, Cardiac Stent, LUE Fistula, RLE Femoropopliteal Bypass Allergies: Coded Allergies: No Known Allergies (Unverified , 02/26/17) Family History PAST FAMILY HISTORY: Reviewed, positive for DM and CAD Social History PAST SOCIAL HISTORY: Negative for alcohol, tobacco or drugs. Physical Exam Vital Signs Vital Signs Date Time Temp Pulse Resp B/P (MAP) Pulse Ox O2 Delivery O2 Flow Rate FiO2 02/26/17 04:32 82 16 142/71 (94) 98 Room Air 02/26/17 04:01 98 Room Air 02/26/17 03:45 18 98 Room Air 02/26/17 03:40 97.9 87 18 139/67 (91) Physical Exam PE: GENERAL: Middle-aged white male in no acute distress. HEENT: PERRLA, EOMI. No scleral icterus or conjunctival pallor. No lid lag or facial droop. CARDIOVASCULAR: Regular rate and rhythm. No obvious murmurs to auscultation. No chest tenderness to palpation. RESPIRATORY: No obvious rhonchi or wheezing. Clear to auscultation. Breath sounds equal bilaterally. GASTROINTESTINAL: Abdomen soft, non-tender, nondistended. BS normal. Colostomy in place. MUSCULOSKELETAL: Extremities without clubbing, cyanosis, or edema. No obvious deformities. NEUROLOGICAL: Awake, alert and oriented x4. No focal neurologic deficits. Moving both upper and lower extremities spontaneously. Laboratory Laboratory Tests Test 02/26/17 04:02 White Blood Count 14.3 Red Blood Count 2.63 Hemoglobin 7.8 Hematocrit 24.2 Mean Corpuscular Volume 92.0 Mean Corpuscular Hemoglobin 29.8 Mean Corpuscular Hemoglobin Concent 32.3 Red Cell Distribution Width 15.4 Platelet Count 178 Mean Platelet Volume 9.5 Neutrophils (%) (Auto) 87.1 Lymphocytes (%) (Auto) 5.8 Monocytes (%) (Auto) 7.0 Eosinophils (%) (Auto) 0.0 Basophils (%) (Auto) 0.1 Neutrophils # (Auto) 12.4 Lymphocytes # (Auto) 0.8 Monocytes # (Auto) 1.0 Eosinophils # (Auto) 0.0 Basophils # (Auto) 0.0 CBC Comment AUTO DIFF Differential Total Cells Counted 100 Neutrophils % (Manual) 88 Band Neutrophils % 1 Lymphocytes % 3 Monocytes % 6 Neutrophils # (Manual) 12.9 Myelocytes 1 Differential Comment FINAL DIFF MANUAL Blastocytes 1 Platelet Estimate NORMAL Platelet Morphology Comment NORMAL Basophilic Stippling FAINT Ovalocytes 1+ Blood Urea Nitrogen 46 Creatinine 5.40 Random Glucose 366 Calcium Level 7.8 Sodium Level 138 Potassium Level 3.8 Chloride Level 106 Carbon Dioxide Level 21.4 Anion Gap 11 Estimat Glomerular Filtration Rate 11 Total Creatine Kinase 55 Troponin I 0.32 Result Diagram: 02/26/1740102/26/17401 Caprini VTE Risk Assessment Caprini VTE Risk Assessment: Mod/High Risk (score >= 2) Caprini Risk Assessment Model Point Value = 1 Point Value = 2 Point Value = 3 Point Value = 5 Age 41-60 Minor surgery BMI > 25 kg/m2 Swollen legs Varicose veins or History of unexplained or recurrent spontaneous Oral contraceptives or hormone replacement Sepsis (< 1 month) Serious lung disease, including pneumonia (< 1 month) Abnormal pulmonary function Acute myocardial infarction Congestive heart failure (< 1 month) History of inflammatory bowel disease Medical patient at bed rest Age 61-74 Arthroscopic surgery Major open surgery (> 45 min) Laparoscopic surgery (> 45 min) Malignancy Confined to bed (> 72 hours) Immobilizing plaster cast Central venous access Age >= 75 History of VTE Family history of VTE Factor V Leiden Prothrombin [id number] Lupus anticoagulant Anticardiolipin antibodies Elevated serum homocysteine Heparin-induced thrombocytopenia Other congenital or acquired thrombophilia Stroke (< 1 month) Elective arthroplasty Hip, pelvis, or leg fracture Acute spinal cord injury (< 1 month) Prophylaxis Regimen Total Risk Factor Score Risk Level Prophylaxis Regimen 0-1 Low Early ambulation 2 Moderate Order ONE of the following: *Sequential Compression Device (SCD) *Heparin 5000 units SQ BID 3-4 Higher Order ONE of the following medications: *Heparin 5000 units SQ TID *Enoxaparin/Lovenox 40 mg SQ daily (WT < 150 kg, CrCl > 30 mL/min) *Enoxaparin/Lovenox 30 mg SQ daily (WT < 150 kg, CrCl > 10-29 mL/min) *Enoxaparin/Lovenox 30 mg SQ BID (WT < 150 kg, CrCl > 30 mL/min) AND/OR *Sequential Compression Device (SCD) 5 or more Highest Order ONE of the following medications: *Heparin 5000 units SQ TID (Preferred with Epidurals) *Enoxaparin/Lovenox 40 mg SQ daily (WT < 150 kg, CrCl > 30 mL/min) *Enoxaparin/Lovenox 30 mg SQ daily (WT < 150 kg, CrCl > 10-29 mL/min) *Enoxaparin/Lovenox 30 mg SQ BID (WT < 150 kg, CrCl > 30 mL/min) AND *Sequential Compression Device (SCD) Assessment and Plan Problem List: (1) NSTEMI (non-ST elevated myocardial infarction) ICD Code: I21.4 - Non-ST elevation (NSTEMI) myocardial infarction (2) Anemia ICD Code: D64.9 - Anemia, unspecified (3) Leukocytosis ICD Code: D72.829 - Elevated white blood cell count, unspecified (4) ESRD on hemodialysis ICD Code: N18.6 - End stage renal disease; Z99.2 - Dependence on renal dialysis (5) DM (diabetes mellitus) ICD Code: E11.9 - Type 2 diabetes mellitus without complications Assessment and Plan A/P: 1. NSTEMI: Acute onset of chest pain w/ radiation to neck/LUE, Trop 0.32, EKG w/ no acute ischemia. S/p NTG w/ improvement, currently chest pain free. Dr. Juárez consulted by ER physician, recommended pRBC transfusion for anemia, hold off on anticoagulation. Check serial cardiac enzymes. Statin, Metoprolol , NTG/Morphine prn. CXR w/ no acute findings, images reviewed by me. 2. Anemia: Acute. Hemoccult negative. Hgb 7.8, previously 11.8 on 01/20/17. No active bleeding. Transfuse 1u pRBC, currently pending transfusion, follow up Hgb/Hct. 3. ESRD on HD: T/Th/Sat, last HD on Sat w/ no complications. Follows w/ Dr. Kennedy, will consult to resume HD. 4. DM: Hgb A1c 5.4 on 01/11/17, however BS 366. Sliding scale w/ Accu-Cheks. 5. DVT Prophylaxis: Hold anticoagulation per Cardio in light of anemia, SCD/ Teds. 6. Social work for d/c planning as needed. 7. Case discussed w/ ER physician at length. Physician Certification 2 Midnight Certification Type: Admission for Inpatient Services Order for Inpatient Services The services are ordered in accordance with Medicare regulations or non- Medicare payer requirements, as applicable. In the case of services not specified as inpatient-only, they are appropriately provided as inpatient services in accordance with the 2-midnight benchmark. Estimated LOS (days): 2 days is the estimated time the patient will need to remain in the hospital, assuming treatment plan goals are met and no additional complications. Post-Hospital Plan: Not yet determined Problem Qualifiers (1) Anemia: Qualified Codes: D64.9 - Anemia, unspecified Darleen Carranza MD Feb 26, 2017 05:13
[2017-02-26] MEDS ORDERED: GLUCAGON 1 MG/ML VIAL OTHER PRN (05:15)
[2017-02-26] MEDS ORDERED: DEXTROSE 50% IN WATER 50 ML VIAL(D50) IV PUSH PRN (05:15)
--- NOTE | 2017-02-26 05:34 | RADRPT ---
EXAM DATE/TIME: 02/26/2017 04:03 [facility] COMPARISON: CHEST SINGLE AP, February 13, 2017, 10:36. INDICATIONS : Chest pain MEDICAL HISTORY : Renal failure, chronic. Hypertension Diabetes mellitus type II. CHF SURGICAL HISTORY : Colon Resection, Colostomy ENCOUNTER: Initial ACUITY: 1 day PAIN SCORE: 6/10 LOCATION: Bilateral chest FINDINGS: A single view of the chest demonstrates bibasilar densities and diminished lung volumes. The cardiom ediastinal contours are unremarkable. Osseous structures are intact. CONCLUSION: 1. Bibasilar atelectasis. Dallas Diaz MD on February 26, 2017 at 5:32 Board Certified Radiologist. This report was verified electronically.
[2017-02-26] MEDS: INSULIN ASPART SUPPLEMENTAL SCALE SQ SCH ×2 (08:00→12:00)
[2017-02-26] MEDS ORDERED: PRAVASTATIN SOD 40 MG TAB PO SCH (09:00)
[2017-02-26] MEDS ORDERED: METOPROLOL TARTRATE 50 MG TAB PO SCH (09:00)
[2017-02-26] MEDS ORDERED: DOCUSATE SODIUM 50 MG/SENNA 8.6 MG TAB PO SCH (09:00)
[2017-02-26] MEDS ORDERED: SODIUM CHLORIDE 0.9% FLUSH 10 ML FLUSH IV FLUSH SCH (09:00)
[2017-02-26] MEDS: MORPHINE SULFATE 4 MG/ML INJ IV PUSH PRN ×2 (09:24→13:48)
--- NOTE | 2017-02-26 10:29 | EKG ---
Date Performed: 02/26/2017 Time Performed: 03:43:35 PTAGE: 56 years EKG: Sinus rhythm LEFT VENTRICULAR HYPERTROPHY AND ST-T CHANGE ABNORMAL ECG Compared to PREVIOUS TRACING T wave changes consistent with LVH are more prominent PREVIOUS TRACIN01/20/2017 17.43 DOCTOR: Kishore Juárez Interpretating Date/Time 02/26/2017 10:26:57
--- NOTE | 2017-02-26 10:40 | PD.CONS ---
HPI Service Nephrology Consult Requested By Dr. Carranza Reason for Consult Known to our services for ESRD on HD Primary Care Physician [facility] History of Present Illness The patient is a 56 yo [place] male who is known to our services for ESRD on HD , , & Sun. Has been complaining of nonspecific L sided chest pain for some weeks that was initially diagnosed as costochondritis. States that early this morning, the chest pain became more intense and began to radiate to the neck, back, and arm. He called EMS who transported to the hospital. Was given NTG and ASA on transport and did relieve pain. Has nausea and SOB as well. Has not missed and HD within the past week. Was due to start Aranesp tomorrow during HD. s/p 1U PBRCs on arrival for Hgb of 7.8. Review of Systems Respiratory: COMPLAINS OF: Shortness of breath Cardiovascular: COMPLAINS OF: Chest pain Gastrointestinal: COMPLAINS OF: Nausea Past Family Social History Allergies: Coded Allergies: No Known Allergies (Unverified , 02/26/17) Past Medical History End-stage renal disease Congestive heart failure Hypertension Secondary hyperparathyroidism renal disease Diabetes mellitus Peripheral arterial disease/peripheral vascular disease Anemia renal disease Hx of ischemic colitis requiring partial colectomy and colostomy Hx gangrene right great toe Gastritis/Esophagitis Atherosclerotic vascular disease Depression/Anxiety C Diff history Mitral regurgitation Secondary hyperparathyroidism secondary to Vitamin D Deficiency Gastroparesis Recent bacteremia--source RIJ PermCath Past Surgical History Bypass of the right leg. Amputation of the right big toe. Hemicolectomy/Colostomy. PCI status post stent 2 years ago after an DE. Left av fistula Right tunneled subclavian dialysis catheter placement EGD Reported Medications Reported Meds & Active Scripts Active Tramadol (Tramadol HCl) 50 Mg Tab 50 Mg PO Q6H PRN Zofran Odt (Ondansetron Odt) 4 Mg Tab 4 Mg SL Q6HR PRN Protonix (Pantoprazole Sodium) 40 Mg Tab 40 Mg PO BID Reported Lyrica (Pregabalin) 75 Mg Cap 75 Mg PO BID Enalapril (Enalapril Maleate) 10 Mg Tab 10 Mg PO DAILY Norvasc (Amlodipine Besylate) 10 Mg Tab 10 Mg PO DAILY Metoprolol Tartrate 50 Mg Tab 50 Mg PO BID Active Ordered Medications Current Medications Medications (Trade) Dose Ordered Sig/Hallie Route Start Time Stop Time Status Last Admin (Pravachol) 40 mg DAILY PO 02/26/17 09:00 02/26/17 09:22 (NS Flush) 2 ml UNSCH PRN IV FLUSH 02/26/17 05:00 (NS Flush) 2 ml BID IV FLUSH 02/26/17 09:00 02/26/17 09:21 (Zofran Inj) 4 mg Q6H PRN IVP 02/26/17 05:00 02/26/17 05:35 (Tylenol) 650 mg Q6H PRN PO 02/26/17 05:00 ([place] 5-325 Mg) 1 tab Q4H PRN PO 02/26/17 05:00 (Morphine Inj) 2 mg Q3H PRN IV PUSH 02/26/17 05:00 02/26/17 09:24 (Kanwal-Colace) 1 tab BID PO 02/26/17 09:00 02/26/17 09:22 (Milk Of Magnesia Liq) 30 ml Q12H PRN PO 02/26/17 05:00 (Senokot) 17.2 mg Q12H PRN PO 02/26/17 05:00 (Dulcolax Supp) 10 mg DAILY PRN RECTAL 02/26/17 05:00 (Lactulose Liq) 30 ml DAILY PRN PO 02/26/17 05:00 (Lopressor) 50 mg BID PO 02/26/17 09:00 02/26/17 09:22 (Nitroglycerin 2% Oint) 0.5 inch Q6HR PRN TOPICAL 02/26/17 05:00 02/26/17 05:43 (D50w (Vial) Inj) 50 ml UNSCH PRN IV PUSH 02/26/17 05:15 (Glucagon Inj) 1 mg UNSCH PRN OTHER 02/26/17 05:15 (NovoLOG SUPPLEMENTAL SCALE) 1 ACHS SLIDING SCALE SQ 02/26/17 08:00 Family History NC Social History Single, lives alone locally. Denies EtOH Smokes marijuana Tobacco use Physical Exam Vital Signs Vital Signs Date Time Temp Pulse Resp B/P (MAP) Pulse Ox O2 Delivery O2 Flow Rate FiO2 02/26/17 10:00 68 02/26/17 09:51 16 02/26/17 09:05 86 18 152/71 (98) 97 02/26/17 09:00 97.3 79 18 149/79 (102) 97 02/26/17 07:43 18 02/26/17 07:32 97.8 68 18 157/85 (109) 99 Room Air 02/26/17 06:51 97.5 78 18 159/76 98 02/26/17 06:36 98.6 73 18 168/79 99 02/26/17 06:03 70 16 168/79 (108) 99 Room Air 02/26/17 05:16 71 16 157/74 (101) 100 Room Air 02/26/17 04:32 82 16 142/71 (94) 98 Room Air 02/26/17 04:01 98 Room Air 02/26/17 03:45 18 98 Room Air 02/26/17 03:40 97.9 87 18 139/67 (91) Physical Exam GENERAL: Pt sitting up in chair. NAD. SKIN: Warm and dry. GASTROENTEROLOGY NURSE PRACTITIONER reports bed bug infestation HEAD: Atraumatic. Normocephalic. EYES: Pupils equal and round. No scleral icterus. No injection or drainage. ENT: No nasal bleeding or discharge. Mucous membranes pink and moist. NECK: Trachea midline. No JVD. CARDIOVASCULAR: Regular rate and rhythm. RESPIRATORY: No accessory muscle use. Clear to auscultation. Breath sounds equal bilaterally. GASTROINTESTINAL: Abdomen soft, non-tender, nondistended. Hepatic and splenic margins not palpable. MUSCULOSKELETAL: Extremities without clubbing, cyanosis, trace edema RLE NEUROLOGICAL: Awake and alert. No obvious cranial nerve deficits. Normal speech. PSYCHIATRIC: Appropriate mood and affect; insight and judgment normal. Laboratory Laboratory Tests Test 02/26/17 04:02 White Blood Count 14.3 Red Blood Count 2.63 Hemoglobin 7.8 Hematocrit 24.2 Mean Corpuscular Volume 92.0 Mean Corpuscular Hemoglobin 29.8 Mean Corpuscular Hemoglobin Concent 32.3 Red Cell Distribution Width 15.4 Platelet Count 178 Mean Platelet Volume 9.5 Neutrophils (%) (Auto) 87.1 Lymphocytes (%) (Auto) 5.8 Monocytes (%) (Auto) 7.0 Eosinophils (%) (Auto) 0.0 Basophils (%) (Auto) 0.1 Neutrophils # (Auto) 12.4 Lymphocytes # (Auto) 0.8 Monocytes # (Auto) 1.0 Eosinophils # (Auto) 0.0 Basophils # (Auto) 0.0 CBC Comment AUTO DIFF Differential Total Cells Counted 100 Neutrophils % (Manual) 88 Band Neutrophils % 1 Lymphocytes % 3 Monocytes % 6 Neutrophils # (Manual) 12.9 Myelocytes 1 Differential Comment FINAL DIFF MANUAL Blastocytes 1 Platelet Estimate NORMAL Platelet Morphology Comment NORMAL Basophilic Stippling FAINT Ovalocytes 1+ Blood Urea Nitrogen 46 Creatinine 5.40 Random Glucose 366 Calcium Level 7.8 Sodium Level 138 Potassium Level 3.8 Chloride Level 106 Carbon Dioxide Level 21.4 Anion Gap 11 Estimat Glomerular Filtration Rate 11 Total Creatine Kinase 55 Troponin I 0.32 Result Diagram: 02/26/1740102/26/17401 Imaging Last Impressions Chest X-Ray 02/26/17 9803 Signed Impressions: Service Date/Time: Sunday, February 26, 2017 04:03 - CONCLUSION: 1. Bibasilar atelectasis. Dallas Diaz MD Assessment and Plan Problem List: (1) ESRD (end stage renal disease) on dialysis ICD Codes: N18.6 - End stage renal disease; Z99.2 - Dependence on renal dialysis Status: Chronic Plan: Will continue on HD TTS as per outpatient schedule. If cardiac cath a potential, we would like to coordinate to be done prior to HD tomorrow as he does have residual kidney function. Will check iPTH and Vit D Check PO4 Medications should be adjusted for the patient's ESRD. Avoid gadolinium. (2) Chest pain ICD Codes: R07.9 - Chest pain, unspecified Status: Acute Plan: Pending consult with cardiology. (3) Anemia ICD Codes: D64.9 - Anemia, unspecified Status: Chronic Plan: Has had GIB in the past. FOBT negative in ED. Likely has some component of anemia of renal disease. Check Fe panel. Will initiate Epogen if indicated. (4) Diabetes mellitus ICD Codes: E11.9 - Type 2 diabetes mellitus without complications Status: Chronic Plan: Mgmt as per primary (5) HTN (hypertension) ICD Codes: I10 - Hypertension Status: Chronic Plan: Continue home regimen Eugenie Britton Feb 26, 2017 10:40
[2017-02-26] MEDS ORDERED: SODIUM CHLOR 0.9% 1000 ML INJ 1,000 ML OTHER PRN ×2 (10:41)
[2017-02-26] MEDS ORDERED: SODIUM CHLOR 0.9% 1000 ML INJ 1,000 ML IV PRN (10:41)
[2017-02-26] MEDS ORDERED: ALBUMIN 25% INJ 100 ML IV PRN (10:45)
[2017-02-26] MEDS ORDERED: HEPARIN SODIUM - IV 10,000 UNITS/10 ML VIAL PRN (10:45)
[2017-02-26] MEDS ORDERED: diphenhydrAMINE HCL 25 MG CAP PO PRN (10:45)
[2017-02-26] MEDS ORDERED: cloNIDine HCL 0.1 MG TAB PO PRN (10:45)
[2017-02-26] MEDS ORDERED: GENTAMICIN SULFATE (DIALYSIS USE ONLY) 20 MG/2 ML VIAL OTHER PRN (10:45)
[2017-02-26] MEDS ORDERED: HEPARIN SODIUM - IV 10,000 UNITS/10 ML VIAL IV FLUSH PRN (10:45)
[2017-02-26] MEDS ORDERED: MANNITOL 12.5 GM/50 ML VIAL IV PRN (10:45)
[2017-02-26] MEDS ORDERED: ONDANSETRON HCL 4 MG/2 ML VIAL IV PUSH PRN (10:45)
[2017-02-26] MEDS ORDERED: GELATIN 12 MM/7 MM FOAM TOP PRN (10:45)
[2017-02-26] MEDS ORDERED: NITROGLYCERIN 0.4 MG SL 25 TABS/BTL SL PRN (10:45)
--- NOTE | 2017-02-26 12:14 | MB ---
cc: JHONATHAN ENRIQUEZ DO DATE OF CONSULTATION February 26, 2017 REASON FOR CONSULTATION Chest pain. Elevated troponin. HISTORY OF PRESENT ILLNESS Missael Cintron is a pleasant 56-year-old male who presented to [facility] Emergency Room on February 26, 2017, due to chest pain. He states that he was at home and had acute onset of chest pain which started a few hours prior to arrival. He notes that the pain was at rest and somewhat sharp and stabbing in nature but it radiated towards his left upper extremity. On arrival via EMS, he was given aspirin and nitroglycerin and he states this improved his chest pain. He previously had presented with chest pain and had an elevated troponin but this was never worked up as the patient left AMA. On arrival at this time, his troponin was 0.32 but he was noted to have a significant hemoglobin drop since last month of 4 grams from 11.8 to 7.8. He states that he has been itching a lot and feel that he has been bleeding more than he should, although I explained that this is most likely not the cause. PAST MEDICAL HISTORY 1. Anxiety. 2. Depression. 3. Hypertension. 4. Hyperlipidemia. 5. Coronary artery disease. 6. Peripheral vascular disease. 7. End-stage renal disease on hemodialysis Tuesdays, , Saturdays. PAST SURGICAL HISTORY 1. Coronary stent around 13 years ago to an unknown vessel. 2. Bowel resection. 3. Colostomy. 4. PermCath. 5. Left upper extremity fistula. 6. Right lower extremity fem-pop bypass. ALLERGIES No known drug allergies. MEDICATIONS 1. Metoprolol tartrate 50 mg b.i.d. 2. Norvasc 10 mg daily. 3. Enalapril 10 mg daily. 4. Tramadol 15 mg every 6 hours as needed for pain. 5. Lyrica 75 mg b.i.d. 6. Zofran 4 mg every 6 hours as needed for nausea and vomiting. 7. Protonix 40 mg b.i.d. FAMILY HISTORY Denies premature coronary artery disease or sudden cardiac within the family. SOCIAL HISTORY The patient lives alone. Denies alcohol or tobacco abuse. Admits to smoking marijuana. REVIEW OF SYSTEMS Fourteen systems were reviewed including osteopathic pertinent positive and negatives above, otherwise negative. PHYSICAL EXAMINATION VITAL SIGNS: Temperature 97.3, heart rate 79, blood pressure 149/79, respirations 18, pulse ox 97% on room air. GENERAL: The patient appears well but much older than stated age. HEENT: Extraocular muscles intact. Mucous membranes moist. NECK: Supple. No JVD at 45 degrees. No carotid bruits heard bilaterally. Carotid upstroke is brisk in nature. HEART: Regular rate and rhythm. Positive first and second heart sounds with no noted murmurs, rubs, or gallops. LUNGS: Clear to auscultation bilaterally. No wheezes, rales or rhonchi. ABDOMEN: Soft, non-tender, non-distended. No organomegaly noted. EXTREMITIES: No clubbing, cyanosis or edema. Femoral and distal pulses are intact bilaterally. NEUROLOGIC: No focal deficits. SKIN: Warm, dry and intact with excoriation from scratching. OSTEOPATHICALLY: No kyphoscoliosis, lordosis or paraspinal tender points. LABORATORY DATA Hemoglobin 7.8, hematocrit 24.2, platelets 178. Potassium 3.8, BUN 46, creatinine 5.4. Troponin 0.32. ELECTROCARDIOGRAM - February 26, 2017 at 03:43 Sinus rhythm, LVH with secondary ST-T wave changes. IMPRESSIONS 1. Chest pain, atypical for coronary insufficiency. 2. Elevated troponin, possible type 1 versus type 2. 3. History of coronary artery disease. 4. Peripheral vascular disease. 5. End-stage renal disease on hemodialysis. 6. Hypertension. 7. Diabetes mellitus. RECOMMENDATIONS 1. Mr. Cintron presented with atypical chest pain and elevation of his troponins. Elevation of troponin, may be due to coronary insufficiency but possibly due to significant drop in his hemoglobin over the past month. 2. We will continue to follow his troponins and if relatively flat may consider further workup with stress testing versus if significant elevation considering cardiac catheterization. 3. Before he is a cardiac catheterization candidate, his anemia should be worked up. We should at least allow him to make sure that his hemoglobin has stabilized. 4. We will check a 2-D echo to look at his overall left ventricular function. 5. We will place him on aspirin, beta mary and statin therapy. 6. Further recommendations will be made based on the hospital course. Thank you for allowing me to see Missael Cintron. If there are any questions, please do not hesitate to call. Jhonathan COFFMAN/FRANCISCO JAVIER /11:32 AM /11:49 AM
--- NOTE | 2017-02-26 15:15 | HHI.PR ---
Subjective Remarks Follow up on patient with NSTEMI. Patient seen and examined. Patient complaining of total body pain secondary to neuropathy and states it takes too long for his body to absorb oral pain medications. Patient states he lives his life at a pain level of 5 and that makes him angry. Patient denies any chest pain at present. Denies any dyspnea. He reports feeling better after receiving unit of blood. Discussed with nursing staff, no acute issues noted. Objective Vitals Vital Signs Date Time Temp Pulse Resp B/P (MAP) Pulse Ox O2 Delivery O2 Flow Rate FiO2 02/26/17 14:00 78 02/26/17 13:54 16 02/26/17 13:00 74 02/26/17 13:00 97.6 78 16 168/87 (114) 97 02/26/17 12:00 64 02/26/17 11:00 97.3 74 16 136/77 (96) 02/26/17 11:00 66 02/26/17 10:00 68 02/26/17 09:05 86 18 152/71 (98) 97 02/26/17 09:00 97.3 79 18 149/79 (102) 97 02/26/17 07:43 18 02/26/17 07:32 97.8 68 18 157/85 (109) 99 Room Air 02/26/17 06:51 97.5 78 18 159/76 98 02/26/17 06:36 98.6 73 18 168/79 99 02/26/17 06:03 70 16 168/79 (108) 99 Room Air 02/26/17 05:16 71 16 157/74 (101) 100 Room Air 02/26/17 04:32 82 16 142/71 (94) 98 Room Air 02/26/17 04:01 98 Room Air 02/26/17 03:45 18 98 Room Air 02/26/17 03:40 97.9 87 18 139/67 (91) I/O 02/25/17 02/25/17 02/25/17 02/26/17 02/26/17 02/26/17 07:00 15:00 23:00 07:00 15:00 23:00 Intake Total 410 ml Balance 410 ml Intake Packed Cells 400 ml Blood Product IV Normal Saline Flush 10 ml Result Diagram: 02/26/1740102/26/17401 Imaging Last Impressions Chest X-Ray 02/26/17 035 Signed Impressions: Service Date/Time: Sunday, February 26, 2017 04:03 - CONCLUSION: 1. Bibasilar atelectasis. Dallas Diaz MD Objective Remarks GENERAL: Well-nourished, well-developed patient in NAD. Sitting in bedside chair. Appears comfortable. SKIN: Warm and dry. HEAD: Normocephalic. Atraumatic. EYES: EOMI. No scleral icterus. No injection or drainage. ENT: No nasal bleeding or discharge. Mucous membranes pink and moist. NECK: Supple. Trachea midline. CARDIOVASCULAR: Regular rate and rhythm. S1, S2 noted. No murmur appreciated. RESPIRATORY: No accessory muscle use. Clear to auscultation. Breath sounds equal bilaterally. GASTROINTESTINAL: Abdomen soft, non-tender, nondistended. Normoactive bowel sounds x4. MUSCULOSKELETAL: No obvious deformities. Extremities without clubbing, cyanosis , or edema. NEUROLOGICAL: Awake and alert. Moves upper and lower extremities spontaneously. Normal speech. Medications and IVs Current Medications Medications (Trade) Dose Ordered Sig/Hallie Route Start Time Stop Time Status Last Admin (Pravachol) 40 mg DAILY PO 02/26/17 09:00 02/26/17 09:22 (NS Flush) 2 ml UNSCH PRN IV FLUSH 02/26/17 05:00 (NS Flush) 2 ml BID IV FLUSH 02/26/17 09:00 02/26/17 09:21 (Zofran Inj) 4 mg Q6H PRN IVP 02/26/17 05:00 02/26/17 05:35 (Tylenol) 650 mg Q6H PRN PO 02/26/17 05:00 ([place] 5-325 Mg) 1 tab Q4H PRN PO 02/26/17 05:00 (Morphine Inj) 2 mg Q3H PRN IV PUSH 02/26/17 05:00 02/26/17 13:48 (Kanwal-Colace) 1 tab BID PO 02/26/17 09:00 02/26/17 09:22 (Milk Of Magnesia Liq) 30 ml Q12H PRN PO 02/26/17 05:00 (Senokot) 17.2 mg Q12H PRN PO 02/26/17 05:00 (Dulcolax Supp) 10 mg DAILY PRN RECTAL 02/26/17 05:00 (Lactulose Liq) 30 ml DAILY PRN PO 02/26/17 05:00 (Lopressor) 50 mg BID PO 02/26/17 09:00 02/26/17 09:22 (Nitroglycerin 2% Oint) 0.5 inch Q6HR PRN TOPICAL 02/26/17 05:00 02/26/17 05:43 (D50w (Vial) Inj) 50 ml UNSCH PRN IV PUSH 02/26/17 05:15 (Glucagon Inj) 1 mg UNSCH PRN OTHER 02/26/17 05:15 (NovoLOG SUPPLEMENTAL SCALE) 1 ACHS SLIDING SCALE SQ 02/26/17 08:00 Sodium Chloride 1,000 ml @ 0 mls/hr Q0M PRN OTHER 02/26/17 10:41 (Heparin Inj) 8,000 units UNSCH PRN IV FLUSH 02/26/17 10:45 Sodium Chloride 1,000 ml @ 200 mls/hr Q5H PRN IV 02/26/17 10:41 Sodium Chloride 1,000 ml @ 0 mls/hr Q0M PRN OTHER 02/26/17 10:41 (Mannitol Inj) 12.5 gm UNSCH PRN IV 02/26/17 10:45 Albumin Human 100 ml @ 60 mls/hr UNSCH PRN IV 02/26/17 10:45 (NS Flush) 5 ml UNSCH PRN IV FLUSH 02/26/17 10:45 (Heparin Inj) UNSCH PRN .XX 02/26/17 10:45 (Gentamicin (Dialysis) Inj) 20 mg UNSCH PRN OTHER 02/26/17 10:45 (Zofran Inj) 4 mg UNSCH PRN IV PUSH 02/26/17 10:45 (Tylenol) 650 mg UNSCH PRN PO 02/26/17 10:45 (Benadryl) 25 mg UNSCH PRN PO 02/26/17 10:45 (Nitrostat Sl) 0.4 mg UNSCH PRN SL 02/26/17 10:45 (Catapres) 0.1 mg UNSCH PRN PO 02/26/17 10:45 (Gelfoam 12 Mm/7 Mm Top) 1 foam UNSCH PRN TOP 02/26/17 10:45 (Aspirin Chew) 81 mg DAILY CHEW 02/27/17 09:00 A/P Problem List: (1) NSTEMI (non-ST elevated myocardial infarction) ICD Code: I21.4 - Non-ST elevation (NSTEMI) myocardial infarction (2) Anemia ICD Code: D64.9 - Anemia, unspecified (3) Leukocytosis ICD Code: D72.829 - Elevated white blood cell count, unspecified (4) ESRD on hemodialysis ICD Code: N18.6 - End stage renal disease; Z99.2 - Dependence on renal dialysis (5) DM (diabetes mellitus) ICD Code: E11.9 - Type 2 diabetes mellitus without complications Assessment and Plan 56yo male with ESRD on HD and DM admitted with NSTEMI and anemia with hemoglobin of 7.8. NSTEMI - Seen in consultation by cardiology. Per their note, elevation in troponin possibly due to coronary insufficiency or anemia. Trend troponins and will consider further workup pending results. - 2-D echocardiogram reveals EF of 55-60% - Continue on aspirin, beta mary and statin therapy - Continuous cardiac monitoring - Nitro and Morphine prn chest pain Anemia - Hemoccult negative - Hemoglobin 7.8 down from 11.8 01/20/17. Status post transfusion 1 unit PRBCs - Follow up on H&H - Iron panel ordered - Epogen per nephrology ESRD on HD [facility] - Nephrology following, appreciate their assistance - Avoid nephrotoxic agent DM - Accu-Cheks and insulin sliding scale - Hemoglobin A1c 5.4 on 01/11/17 - Diabetic diet HTN - BP controlled at present - Currently on Lopressor 50 mg twice a day only - Home medications Norvasc and Enalapril not resumed at admission - Monitor BP and adjust it accordingly Neuropathy - Resume patient's home dose of Lyrica 75 mg by mouth twice a day and tramadol 50 mg by mouth every 6 when necessary pain - PT eval/treatment GERD - PPI DVT prophylaxis - SCD/GAIL hose - Anticoagulation held per cardio in light of anemia Discussed with patient, Dr. Taylor Problem Qualifiers (1) Anemia: Qualified Codes: D64.9 - Anemia, unspecified Lydia Sifuentes Feb 26, 2017 15:15
--- NOTE | 2017-02-26 15:27 | ECHRPT ---
Indication: Chest pain CONCLUSIONS The left ventricular systolic function is normal with an estimated ejection fraction in the range of 55-60%. Mild mitral valve regurgitation. There is trace tricuspid valve regurgitation. BP: 136 / 77 HR: 74 Rhythm: Sinus MEASUREMENTS (Male / Female) Normal Values Technical Quality:Fair 2D ECHO LV Diastolic Diameter PLAX 4.9 cm 4.2 - 5.9 / 3.9 - 5.3 cm LV Systolic Diameter PLAX 3.5 cm IVS Diastolic Thickness 1.0 cm 0.6 - 1.0 / 0.6 - 0.9 cm LVPW Diastolic Thickness 1.0 cm 0.6 - 1.0 / 0.6 - 0.9 cm LV Relative Wall Thickness 0.4 RV Internal Dim ED PLAX 2.0 cm LVOT Diameter 1.9 cm LA Systolic Diameter LX 4.0 cm 3.0 - 4.0 / 2.7 - 3.8 cm LV Ejection Fraction MOD 4C 52.0 % LV Cardiac Index MOD 4C 2152.8 cm/minm LV Ejection Fraction 4C AL 54.8 % LV Cardiac Index 4C AL 2352.0 cm/minm M-MODE Aortic Root Diameter MM 3.4 cm LA Systolic Diameter MM 4.0 cm LA Ao Ratio MM 1.2 AV Cusp Separation MM 2.2 cm DOPPLER AV Peak Velocity 133.0 cm/s AV Peak Gradient 7.1 mmHg LVOT Peak Velocity 101.0 cm/s LVOT Peak Gradient 4.1 mmHg AV Area Cont Eq pk 2.2 cm MV Peak Velocity 163.0 cm/s MV Peak Gradient 10.6 mmHg MV Mean Velocity 83.1 cm/s MV Mean Gradient 3.0 mmHg MV Area PHT 3.7 cm Mitral E Point Velocity 129.0 cm/s Mitral A Point Velocity 84.9 cm/s Mitral E to A Ratio 1.5 LV E' Lateral Velocity 8.4 cm/s Mitral E to LV E' Lateral Ratio 15.4 LV E' Septal Velocity 5.9 cm/s Mitral E to LV E' Septal Ratio 22.1 PV Peak Velocity 96.4 cm/s PV Peak Gradient 3.7 mmHg FINDINGS LEFT VENTRICLE The left ventricular systolic function is normal with an estimated ejection fraction in the range of 55-60%. No regional wall motion abnormalities are present. Normal left ventricular size. Wall thickness is normal. RIGHT VENTRICLE Normal right ventricular size and systolic function. LEFT ATRIUM The left atrial size is mildly dilated. RIGHT ATRIUM The right atrial size is normal. ATRIAL SEPTUM Normal atrial septal thickness without atrial level shunting by limited color doppler interrogation. AORTA The aortic root and proximal ascending aorta are normal in size on limited imaging. MITRAL VALVE Structurally normal mitral valve. Mild mitral valve regurgitation. No mitral valve stenosis. AORTIC VALVE Trileaflet aortic valve. No aortic valve stenosis or regurgitation. TRICUSPID VALVE Structurally normal tricuspid valve. There is trace tricuspid valve regurgitation. Normal estimated pulmonary pressures. PULMONARY VALVE The pulmonary valve is not well visualized. VESSELS The inferior vena cava is dilated. PERICARDIUM No pericardial effusion. Jhonathan Blair DO (Electronically Signed) Final Date:26 February 2017 15:26
[2017-02-26] MEDS ORDERED: traMADol HCL 50 MG TAB PO PRN (16:45)
--- NOTE | 2017-02-26 17:51 | PD.AMA ---
Against Medical Advice Note Discharge Disposition: Against Medical Advice AMA Statement Patient Missael Cintron has decided to leave the hospital against medical advice. This patient has the capacity to refuse care and understands the risks of leaving, including permanent disability and/or , and has had an opportunity to ask questions about his condition. The patient has been informed that he may return for care at any time, and follow up has been arranged/ advised. Dallas Taylor MD Feb 26, 2017 17:51
[2017-02-26] MEDS ORDERED: PREGABALIN 75 MG CAP PO SCH (21:00)
[2017-02-26] MEDS ORDERED: PANTOPRAZOLE SOD 40 MG DELAYED RELEASE TAB PO SCH (21:00)
[2017-02-27] MEDS ORDERED: ASPIRIN 81 MG CHEW TAB CHEW SCH (09:00)
== END 2017-02-26 17:40 | disposition left against medical advice (07) | DRG 280 ==
LOC: NEPE 03:35 → NEDA 05:30 → HCIN 08:41
PROVIDERS: ADMIT Family Medicine; ATTEND Family Medicine
PROC: 30253N1 (ICD-10-PCS; principal; 2017-02-26)
DX: I21.4 Non-ST elevation (NSTEMI) myocardial infarction (principal); N18.6 End stage renal disease; I13.2 Hypertensive heart and chronic kidney disease with heart failure and with stage 5 chronic kidney disease, or end stage renal disease; E11.22 Type 2 diabetes mellitus with diabetic chronic kidney disease; N25.81 Secondary hyperparathyroidism of renal origin; K31.84 Gastroparesis; Z99.2 Dependence on renal dialysis; D64.9 Anemia, unspecified; D72.829 Elevated white blood cell count, unspecified; E78.5 Hyperlipidemia, unspecified; E55.9 Vitamin D deficiency, unspecified; I73.9 Peripheral vascular disease, unspecified; G62.9 Polyneuropathy, unspecified; I25.10 Atherosclerotic heart disease of native coronary artery without angina pectoris; I25.2 Old myocardial infarction; I34.0 Nonrheumatic mitral (valve) insufficiency; I50.9 Heart failure, unspecified; K21.9 Gastro-esophageal reflux disease without esophagitis; M94.0 Chondrocostal junction syndrome [Tietze]; F17.200 Nicotine dependence, unspecified, uncomplicated; F12.90 Cannabis use, unspecified, uncomplicated; Z79.899 Other long term (current) drug therapy; Z87.01 Personal history of pneumonia (recurrent); Z89.411 Acquired absence of right great toe; Z93.3 Colostomy status; Z95.5 Presence of coronary angioplasty implant and graft
CPT/HCPCS: 36430; 71010; 80048; 82306; 82550; 82948; 83970; 84484; 85007; 85027; 86850; 86900; 86901; 86920; 93005; 93306; J2270; J2405; P9016

== ENCOUNTER 2017-04-03 23:51 | Inpatient (IN) | payer MEDICARE, OTHER ==
[~2017-04-03 23:51] MED LIST changes: -BETH10 PO; -BUSP10TA PO; -PROM25TA10 PO
[2017-04-03 23:56] VITALS: BP 90/40; PULSE 70; RESP 14
[2017-04-03 23:58] VITALS: O2SAT 100
[2017-04-04] VITALS (47 sets, daily range): BP systolic 91–160; BP diastolic 38–76; PULSE 41–81; RESP 11–28; TEMP 94.6–99.3; O2SAT 88–100
[2017-04-04] MEDS ORDERED: SODIUM CHLORID 0.9% 500 ML INJ 500 ML IV ONE
[2017-04-04] MEDS ORDERED: SODIUM CHLORIDE 0.9% FLUSH 10 ML FLUSH IVF PRN
[2017-04-04] MEDS ORDERED: MIDAZOLAM HCL 5 MG/ML VIAL (1 ML) ONE (00:03)
[2017-04-04] MEDS ORDERED: DOPamine INJ PREMIX 500 ML ONE (00:03)
--- NOTE | 2017-04-04 00:14 | PD ---
HPI Chief Complaint: Respiratory Distress Time Seen by Provider: 23:57 Travel History International Travel<30 days: No Contact w/Intl Traveler<30days: No Traveled to known affect area: No History of Present Illness HPI The patient is a 56-year-old male who presents to the emergency department via EMS after the patient was coded in the field and the air medics had return of spontaneous circulation. According to EMS they received a call for shortness of breath and when they arrived the patient's symptoms progressed. They stated that the patient started of bradycardia down, eventually went into PEA with a bradycardic rhythm. They administered CPR for approximately one and a half minutes and gave the patient 1 mg of epinephrine. They then had return of spontaneous circulation with a bradycardic rhythm in the 30s. They then started pacing the patient in the field and intubated him in the field with a 7.5 endotracheal tube. Prior to arrival EMS states that the patient regained consciousness and was able to follow commands. Upon arrival the patient is intubated. PFSH Past Medical History Hx Anticoagulant Therapy: No Arthritis: No Asthma: No Blood Disorders: No Anxiety: Yes Depression: Yes Heart Rhythm Problems: No Cancer: No Cardiac Catheterization: Yes Cardiovascular Problems: Yes High Cholesterol: Yes Chest Pain: No Congestive Heart Failure: Yes COPD: No Cerebrovascular Accident: No Diabetes: Yes Dialysis: Yes (left arm fistula) Diminished Hearing: No Endocrine: Yes Gastrointestinal Disorders: Yes (gastroparesis, GERD, COLOSTOMY) GERD: Yes Genitourinary: Yes (CKD ) Headaches: No Hepatitis: No Hiatal Hernia: Yes Hypertension: Yes Immune Disorder: No Inguinal Hernia: Yes Implanted Vascular Access Dvce: Yes (L FOREARM fistula) Kidney Stones: Yes Musculoskeletal: No Neurologic: Yes (neuropathy FEET AND HANDS) Psychiatric: Yes Reproductive: No Respiratory: Yes (HX PNEUMONIA) Immunizations Current: Yes Migraines: No Myocardial Infarction: Yes (2003) Pneumonia: Yes Renal Failure: Yes (chronic kidney disease on hemodialysis ) Seizures: No Sleep Apnea: No Thyroid Disease: No Ulcer: No Past Surgical History Abdominal Surgery: Yes AICD: No Arteriovenous Shunt: No Body Medical Devices: Cardiac Stent, PERMACATH UPPER LEFT CHEST Cardiac Surgery: Yes (fem pop bYPASS) Coronary Stent: Yes Ear Surgery: No Endocrine Surgery: No Eye Surgery: No Genitourinary Surgery: No Gynecologic Surgery: No Insulin Pump: No Joint Replacement: No Neurologic Surgery: No Oral Surgery: No Pacemaker: No Thoracic Surgery: No Other Surgery: Yes (KELLY fistula, right leg fem pop bypass) Social History Alcohol Use: No Tobacco Use: Yes (1/2 PPD) Substance Use: No Allergies-Medications (Allergen,Severity, Reaction): Coded Allergies: No Known Allergies (Unverified Adverse Reaction, Unknown, 04/04/17) Reported Meds & Prescriptions Reported Meds & Active Scripts Active Tramadol (Tramadol HCl) 50 Mg Tab 50 Mg PO Q6H PRN Zofran Odt (Ondansetron Odt) 4 Mg Tab 4 Mg SL Q6HR PRN Protonix (Pantoprazole Sodium) 40 Mg Tab 40 Mg PO BID Reported Lyrica (Pregabalin) 75 Mg Cap 75 Mg PO BID Enalapril (Enalapril Maleate) 10 Mg Tab 10 Mg PO DAILY Norvasc (Amlodipine Besylate) 10 Mg Tab 10 Mg PO DAILY Metoprolol Tartrate 50 Mg Tab 50 Mg PO BID Review of Systems ROS Limitations: Intubated Except as stated in HPI: all other systems reviewed are Neg Respiratory: Positive: Shortness of Breath Physical Exam Narrative GENERAL: Eyes open, will follow simple commands such as grasping his hands and moving his feet. SKIN: Focused skin assessment warm/dry. HEAD: Atraumatic. Normocephalic. EYES: Pupils equal and round. 4 mm bilateral and reactive. ENT: No nasal bleeding or discharge. 7.[address] in place at 23 cm. NECK: Trachea midline. No JVD. CARDIOVASCULAR: Bradycardic with an intrinsic rate in the 20s when the monitor is turned off. RESPIRATORY: No accessory muscle use. Bilateral breath sounds via bag valve ventilation, rhonchi in the right base. Sternal scar noted. GASTROINTESTINAL: Abdomen soft, non-tender, nondistended. Colostomy bag right lower quadrant noted. MUSCULOSKELETAL: No obvious deformities. No clubbing. No cyanosis. No edema. AV fistula left upper extremity noted. IO in place left lower extremity. NEUROLOGICAL: Eyes open, will grasp his hands move his feet to command. We'll blink his eyes to command. Nonverbal with endotracheal tube in place. PSYCHIATRIC: Unable to assess. Data Data Last Documented VS Vital Signs Date Time Temp Pulse Resp B/P (MAP) Pulse Ox O2 Delivery O2 Flow Rate FiO2 04/04/17 01:06 97.0 70 14 117/38 (64) Ventilator 100 04/04/17 00:45 95 Orders Orders Electrocardiogram (04/03/17 23:57) Ckmb (Isoenzyme) Profile (04/03/17 23:57) Complete Blood Count With Diff (04/03/17 23:57) Comprehensive Metabolic Panel (04/03/17 23:57) Magnesium (Mg) (04/03/17 23:57) Prothrombin Time / Inr (Pt) (04/03/17:57) Act Partial Throm Time (Ptt) (04/03/17 23:57) Troponin I (04/03/17 23:57) Chest, Single Ap (04/03/17:57) Ecg Monitoring (04/03/17:57) Bilateral Bp Monitoring (04/03/17 23:57) Iv Access Insert/Monitor (04/03/17 23:57) Oximetry (04/03/17 23:57) Oxygen Administration (04/03/17 23:57) Sodium Chloride 0.9% Flush (Ns Flush) (04/04/17 00:00) Sodium Chlorid 0.9% 500 Ml Inj (Ns 500 M (04/04/17 00:00) Midazolam Inj (Versed Inj) (04/04/17 00:03) Dopamine Inj Premix (Dopamine Inj Premix (04/04/17 00:03) Midazolam Inj (Versed Inj) (04/04/17 00:15) ^ Infusion (04/04/17 ) Dopamine Inj Premix (Dopamine Inj Premix (04/04/17 00:15) Terbutaline Inj (Brethine Inj) (04/04/17 00:15) Propofol 1000 Mg/100 Ml Inj (Diprivan 10 (04/04/17 00:15) ^ Infusion (04/04/17 00:07) RASS (04/04/17 00:07) Neurological Rass Scale WATSON.Q2H (04/04/17 00:07) Arterial Blood Gas (Abg) (04/04/17 05:00) Norepinephrine Inj (Levophed Inj) (04/04/17 00:31) Type And Screen (04/04/17 01:05) Red Blood Cells (Rbc) (04/04/17 01:10) Blood Product Administration (04/04/17 01:10) Sodium Chlor 0.9% 250 Ml Inj (Ns 250 Ml (04/04/17 01:15) Admit Order (Ed Use Only) (04/04/17 ) Uniform Designer / Telemetry WATSON.Q8H (04/04/17 01:17) Vital Signs (Adult) Q4H (04/04/17 01:17) Diet Npo (04/04/17 Breakfast) Activity Bed Rest (04/04/17 01:17) Labs Laboratory Tests Test 04/04/17 00:05 04/04/17 00:29 White Blood Count 14.5 TH/MM3 Red Blood Count 2.27 MIL/MM3 Hemoglobin 6.2 GM/DL Hematocrit 21.1 % Mean Corpuscular Volume 93.0 FL Mean Corpuscular Hemoglobin 27.4 PG Mean Corpuscular Hemoglobin Concent 29.4 % Red Cell Distribution Width 18.7 % Platelet Count 243 TH/MM3 Mean Platelet Volume 10.3 FL Neutrophils (%) (Auto) 85.1 % Lymphocytes (%) (Auto) 8.7 % Monocytes (%) (Auto) 5.8 % Eosinophils (%) (Auto) 0.1 % Basophils (%) (Auto) 0.3 % Neutrophils # (Auto) 12.3 TH/MM3 Lymphocytes # (Auto) 1.3 TH/MM3 Monocytes # (Auto) 0.8 TH/MM3 Eosinophils # (Auto) 0.0 TH/MM3 Basophils # (Auto) 0.0 TH/MM3 CBC Comment AUTO DIFF Prothrombin Time 18.1 SEC Prothromb Time International Ratio 1.6 RATIO Activated Partial Thromboplast Time 42.2 SEC Blood Urea Nitrogen 33 MG/DL Creatinine 4.38 MG/DL Random Glucose 84 MG/DL Total Protein 3.7 GM/DL Albumin 1.1 GM/DL Calcium Level LESS THAN 5.0 MG/DL Magnesium Level 1.1 MG/DL Alkaline Phosphatase 92 U/L Aspartate Amino Transf (AST/SGOT) 143 U/L Alanine Aminotransferase (ALT/SGPT) 85 U/L Total Bilirubin 0.5 MG/DL Sodium Level 146 MEQ/L Potassium Level 4.9 MEQ/L Chloride Level 119 MEQ/L Carbon Dioxide Level 10.9 MEQ/L Anion Gap 16 MEQ/L Estimat Glomerular Filtration Rate 14 ML/MIN Protein Corrected Calcium 6.4 MG/DL Total Creatine Kinase 59 U/L Troponin I 0.02 NG/ML Blood Gas Puncture Site RT FEMORAL Blood Gas Patient Temperature 37.0 Blood Gas HCO3 12 mmol/L Blood Gas Base Excess -16.8 mmol/L Blood Gas Oxygen Saturation 90 % Arterial Blood pH 7.06 Arterial Blood Partial Pressure CO2 43 mmHg Arterial Blood Partial Pressure O2 100 mmHG Arterial Blood Oxygen Content 9.2 Vol % Arterial Blood Carboxyhemoglobin 2.5 % Arterial Blood Methemoglobin 1.1 % Blood Gas Hemoglobin 7.2 G/DL Oxygen Delivery Device VENTILATOR Blood Gas Ventilator Setting PRVC / AC / Blood Gas Inspired Oxygen 100 % MDM Medical Decision Making Medical Screen Exam Complete: Yes Emergency Medical Condition: Yes Medical Record Reviewed: Yes Interpretation(s) Last Impressions Chest X-Ray 04/03/17 8309 Signed Impressions: Service Date/Time: Sunday, April 04, 2017 00:05 - CONCLUSION: 1. Status post sternotomy. 2. Diffuse consolidations being worse on the right likely related to edema/CHF. 3. Cardiomegaly. 4. ET tube and NG tube in good position. Jan Mccord MD Laboratory Tests Test 04/04/17 00:05 04/04/17 00:29 White Blood Count 14.5 TH/MM3 Red Blood Count 2.27 MIL/MM3 Hemoglobin 6.2 GM/DL Hematocrit 21.1 % Mean Corpuscular Volume 93.0 FL Mean Corpuscular Hemoglobin 27.4 PG Mean Corpuscular Hemoglobin Concent 29.4 % Red Cell Distribution Width 18.7 % Platelet Count 243 TH/MM3 Mean Platelet Volume 10.3 FL Neutrophils (%) (Auto) 85.1 % Lymphocytes (%) (Auto) 8.7 % Monocytes (%) (Auto) 5.8 % Eosinophils (%) (Auto) 0.1 % Basophils (%) (Auto) 0.3 % Neutrophils # (Auto) 12.3 TH/MM3 Lymphocytes # (Auto) 1.3 TH/MM3 Monocytes # (Auto) 0.8 TH/MM3 Eosinophils # (Auto) 0.0 TH/MM3 Basophils # (Auto) 0.0 TH/MM3 CBC Comment AUTO DIFF Prothrombin Time 18.1 SEC Prothromb Time International Ratio 1.6 RATIO Activated Partial Thromboplast Time 42.2 SEC Blood Urea Nitrogen 33 MG/DL Creatinine 4.38 MG/DL Random Glucose 84 MG/DL Total Protein 3.7 GM/DL Albumin 1.1 GM/DL Calcium Level LESS THAN 5.0 MG/DL Magnesium Level 1.1 MG/DL Alkaline Phosphatase 92 U/L Aspartate Amino Transf (AST/SGOT) 143 U/L Alanine Aminotransferase (ALT/SGPT) 85 U/L Total Bilirubin 0.5 MG/DL Sodium Level 146 MEQ/L Potassium Level 4.9 MEQ/L Chloride Level 119 MEQ/L Carbon Dioxide Level 10.9 MEQ/L Anion Gap 16 MEQ/L Estimat Glomerular Filtration Rate 14 ML/MIN Protein Corrected Calcium 6.4 MG/DL Total Creatine Kinase 59 U/L Troponin I 0.02 NG/ML Blood Gas Puncture Site RT FEMORAL Blood Gas Patient Temperature 37.0 Blood Gas HCO3 12 mmol/L Blood Gas Base Excess -16.8 mmol/L Blood Gas Oxygen Saturation 90 % Arterial Blood pH 7.06 Arterial Blood Partial Pressure CO2 43 mmHg Arterial Blood Partial Pressure O2 100 mmHG Arterial Blood Oxygen Content 9.2 Vol % Arterial Blood Carboxyhemoglobin 2.5 % Arterial Blood Methemoglobin 1.1 % Blood Gas Hemoglobin 7.2 G/DL Oxygen Delivery Device VENTILATOR Blood Gas Ventilator Setting PRVC / AC / Blood Gas Inspired Oxygen 100 % Differential Diagnosis Differential diagnosis includes arrhythmia, medication side effect, electrolyte abnormality, return of spontaneous circulation, STEMI, hypoglycemia. Narrative Course IV was established, labs are drawn and sent, and the patient was placed on cardiac telemetry monitoring and continuous pulse oximetry monitoring. The patient was administered IV fluid bolus, versus bolus, placed on a dopamine drip. The patient was taken off of pacing, his heart rate fell to the 20s, therefore, the patient was placed back on pacing. Dopamine drip was started and titrated for a mean arterial pressure greater than 65. The patient was also placed on a propofol drip as he was intubated and being paced. The patient lost pulses once again, CPR was instituted, the patient received one epinephrine intravenously and one amp of bicarbonate. Return to spontaneous circulation was once again obtained. Bedside ultrasound was performed which revealed cardiac activity. For more line was placed in a right femoral artery as the patient was being paced. I discussed the patient with the archeology faculty member, Dr. Chacon, who agrees with admission. Critical Care Narrative Aggregate critical care time was 45 minutes. Time to perform other separately billable procedures was not included in the critical care time. My time did not include minutes spent treating any other patients simultaneously or on activities that did not directly contribute to the patient's treatment. The services I provided to this patient were to treat and/or prevent clinically significant deterioration that could result in: Anoxia, hypoxia, aspiration, arrhythmia, . I provided critical care services requiring my management, as noted below: Chart data review, documentation time, medication orders and management, vital sign assessments/reviewing monitor data, ordering and reviewing lab tests, ordering and interpreting/reviewing x-rays and diagnostic studies, care of the patient and discussion of the patient with the admitting physicians. Procedures Procedure Narrative A bedside ultrasound was performed using a cardiac probe. The patient cardiac activity after epinephrine was administered. The patient tolerated the procedure without difficulty and there was no obvious complications. A bedside ultrasound was performed for right femoral artery placement. Using a linear probe with a depth that at 3.5 cm a right femoral arterial line was placed with good pulsatile blood return. The patient tolerated the procedure without difficulty and there was no obvious complications. CENTRAL VENOUS LINE: The site was prepped with Betadine and sterilely draped. It was infiltrated with 1% lidocaine plain. The deep vein was cannulated using normal Seldinger technique. A central line was placed in the right internal jugular site and secured with simple interrupted suture. The site was sterilely dressed. The patient tolerated the procedure well. The central line was placed under ultrasound guidance. Physician Communication Physician Communication I discussed the patient with Dr. Chacon who agrees with admission. Diagnosis Primary Impression: Symptomatic bradycardia Additional Impressions: Cardiac arrest with pulseless electrical activity Anemia Qualified Codes: D64.9 - Anemia, unspecified CKD (chronic kidney disease) stage 5, GFR less than 15 ml/min Admitting Information Admitting Physician Requests: Admit Condition: Critical Huber Rodriguez MD Apr 04, 2017 00:14
[2017-04-04] MEDS ORDERED: TERBUTALINE INJ 1 MG/ML AMP SQ PRN ×2 (00:15→02:30)
[2017-04-04] MEDS ORDERED: DOPamine INJ PREMIX 500 ML IV PRN (00:15)
[2017-04-04] MEDS ORDERED: MIDAZOLAM HCL 5 MG/5 ML VIAL IV PUSH ONE (00:15)
[2017-04-04] MEDS: NOREPINEPHRINE-DEXTROSE DRIP 250 ML IV PRN ×3 (00:20→11:10)
--- NOTE | 2017-04-04 00:29 | RADRPT ---
EXAM DATE/TIME: 04/04/2017 00:05 [facility] COMPARISON: CHEST SINGLE AP, February 26, 2017, 4:03. INDICATIONS : Post intubation. MEDICAL HISTORY : Hypertension. Congestive heart failure. Diabetes mellitus type II. SURGICAL HISTORY : CABG. ENCOUNTER: Initial ACUITY: 1 day PAIN SCORE: Non-responsive. LOCATION: Bilateral chest FINDINGS: The patient is status post sternotomy. ET tube is 4.1 cm from the bhaskar. NG tube directed into the s tomach. The heart size is enlarged. There is diffuse consolidation seen throughout the right lung and milder consolidation in the left upper and mid lung. There is minimal blunting of the left costophre earl angle. CONCLUSION: 1. Status post sternotomy. 2. Diffuse consolidations being worse on the right likely related to edema/CHF. 3. Cardiomegaly. 4. ET tube and NG tube in good position. Jan Mccord MD on April 04, 2017 at 0:21 Board Certified Radiologist. This report was verified electronically.
[2017-04-04 00:30] LABS: AUTOMATED NEUTROPHIL # 12.3 TH/MM3 (1.8-7.7); BASOPHIL % 0.3 % (0.0-2.0); EOSINOPHIL % 0.1 % (0.0-4.0); HEMATOCRIT 21.1 % (39.0-51.0); LYMPH % 8.7 % (9.0-44.0); LYMPHOCYTE # 1.3 TH/MM3 (1.0-4.8); MEAN CORPUSCULAR HEMOGLOBIN 27.4 PG (27.0-34.0); MONO % 5.8 % (0.0-8.0); NEUT % 85.1 % (16.0-70.0); PLATELET COUNT 243 TH/MM3 (150-450); RED BLOOD COUNT 2.27 MIL/MM3 (4.50-5.90); RED CELL DISTRIBUTION WIDTH 18.7 % (11.6-17.2); WHITE BLOOD COUNT 14.5 TH/MM3 (4.0-11.0)
[2017-04-04] MEDS ORDERED: NOREPINEPHRINE 4 MG/4 ML AMP ONE (00:31)
[2017-04-04 00:37] LABS: HEMO FLAGS AUTO DIFF; MEAN CORPUSCULAR HGB CONC 29.4 % (32.0-36.0)
[2017-04-04 00:40] LABS: APTT (PATIENT) 42.2 SEC (24.3-30.1); INTERNATIONAL NORMALIZED RATIO 1.6 RATIO; PROTHROMBIN TIME - PATIENT 18.1 SEC (9.8-11.6)
[2017-04-04 00:48] LABS: BLOOD GAS BASE EXCESS -16.8 mmol/L (-2-2); BLOOD GAS CARBOXYHEMOGLOBIN 2.5 % (0-4); BLOOD GAS HCO3 12 mmol/L (22-26); BLOOD GAS METHEMOGLOBIN 1.1 % (0-2); BLOOD GAS O2 HGB SATURATION 90 % (90-100); BLOOD GAS OXYGEN CONTENT 9.2 Vol % (12.0-20.0); BLOOD GAS PCO2 43 mmHg (38-42); BLOOD GAS PO2 100 mmHG (61-120); BLOOD GAS TOTAL HGB 7.2 G/DL (12.0-16.0); CRITICAL VALUE YES; OXYGEN DEVICE VENTILATOR
[2017-04-04 00:49] LABS: ALT (GPT) 85 U/L (12-78); ANION GAP 16 MEQ/L (5-15); AST (GOT) 143 U/L (15-37); BICARBONATE 10.9 MEQ/L (21.0-32.0); BLOOD UREA NITROGEN 33 MG/DL (7-18); CHLORIDE 119 MEQ/L (98-107); GLOMERULAR FILTRATION RATE 14 ML/MIN (>89); MAGNESIUM 1.1 MG/DL (1.5-2.5); POTASSIUM 4.9 MEQ/L (3.5-5.1); SODIUM (NA) 146 MEQ/L (136-145)
[2017-04-04 00:49] LABS: DRAW SITE RT FEMORAL; FIO2 100 %; NUMBER OF ARTERIAL PUNCTURES 1; STAT YES; VENT SETTINGS PRVC / AC /
[2017-04-04 00:54] LABS: ALKALINE PHOSPHATASE 92 U/L (45-117); TOTAL BILIRUBIN ADULT 0.5 MG/DL (0.2-1.0)
[2017-04-04 01:01] LABS: CREATINE KINASE 59 U/L (39-308)
[2017-04-04 01:04] LABS: CALCIUM-PROTEIN CORRECTED 6.4 MG/DL (8.5-10.1)
[2017-04-04] MEDS ORDERED: SODIUM CHLOR 0.9% 250 ML INJ 250 ML IV ONE (01:15)
--- NOTE | 2017-04-04 02:12 | RADRPT ---
EXAM DATE/TIME: 04/04/2017 01:47 [facility] COMPARISON: CHEST SINGLE AP, April 04, 2017, 0:05. INDICATIONS : Central line placement. MEDICAL HISTORY : Hypertension. Congestive heart failure. Diabetes mellitus type II. SURGICAL HISTORY : CABG. ENCOUNTER: Subsequent ACUITY: 1 day PAIN SCORE: Non-responsive. LOCATION: Bilateral chest FINDINGS: There is a new right internal jugular central line in place with the tip overlying the junction of th e SVC and right atrium. A pneumothorax is not seen. There continues to be dense consolidation through out the right lung and the left upper lung. The heart size is enlarged. ET tube and NG tube are well placed. CONCLUSION: 1. Right internal jugular central line position. 2. Bilateral areas of consolidation being worse on the right. Jan Mccord MD on April 04, 2017 at 2:09 Board Certified Radiologist. This report was verified electronically.
[2017-04-04 02:17] LABS: METAMYELOCYTES 3 % (0-1); NEUTROPHIL # MANUAL DIFF 13.2 TH/MM3 (1.8-7.7); POLYS (SEG NEUTROPHILS) 86 % (16-70); PROMYELOCYTES 2 % (0-0); WBC DIFF SAMPLE 100
[2017-04-04 02:18] LABS: ACANTHOCYTES OCC (NORMAL); OVALOCYTES 1+ (NORMAL); PLATELET ESTIMATE SMEAR NORMAL (NORMAL)
[2017-04-04 02:19] LABS: PLATELET MORPHOLOGY NORMAL (NORMAL); SCAN/DIFF FINAL DIFF MANUAL
[2017-04-04] MEDS ORDERED: BISACODYL 10 MG SUPP RECTAL PRN (02:30)
[2017-04-04] MEDS ORDERED: MAGNESIUM HYDROXIDE SUSP 30 ML CUP PO PRN (02:30)
[2017-04-04] MEDS ORDERED: CHLORHEXIDINE GLUCONATE 2 % 1 PACK (2 CLOTHS) TOP PRN (02:30)
[2017-04-04] MEDS ORDERED: ACETAMINOPHEN 325 MG TAB PO PRN ×2 (02:30→11:45)
[2017-04-04] MEDS ORDERED: MIDAZOLAM 100 MG/100 ML INJ 100 ML IV PRN (02:30)
[2017-04-04] MEDS ORDERED: SENNOSIDES 8.6 MG TAB PO PRN (02:30)
[2017-04-04] MEDS ORDERED: LACTULOSE SYRUP 20 GM/30 ML CUP PO PRN (02:30)
[2017-04-04] MEDS ORDERED: RESP: ALBUTEROL 2.5 MG/IPRATROPIUM 0.5 MG NEB (PRN) INH (02:30)
[2017-04-04] MEDS ORDERED: ONDANSETRON HCL 4 MG/2 ML VIAL IV PUSH PRN ×2 (02:30→11:45)
[2017-04-04] MEDS ORDERED: MISCELLANEOUS NURSING INFORMATION XX SCH (02:30)
[2017-04-04] MEDS ORDERED: VANCOMYCIN INJ 1,000 MG in SODIUM CHLOR 0.9% 250 ML INJ 250 ML IV ONE ×2 (02:45→12:45)
[2017-04-04] MEDS ORDERED: Vancomycin Consult Pharmacy 1 EA OTHER SCH (02:45)
[2017-04-04] MEDS ORDERED: SODIUM BICARBONATE 8.4% INJ 50 MEQ/50 ML SYR IV PUSH ONE (02:45)
--- NOTE | 2017-04-04 02:46 | HHI.HP ---
HPI Service Critical Care Medicine Primary Care Physician Unknown Admission Diagnosis pulseless electrical activity, return of spontaneous circulation, sy Diagnosis: Travel History International Travel<30 Days: No Contact w/Intl Traveler <30 Da: No Traveled to Known Affected Are: No History of Present Illness 56-year-old male presents via EMS after the patient was coded in the field by the paramedics and had return of spontaneous circulation. According to EMS they received a call for shortness of breath and when they arrived the patient's symptoms progressed. They stated that the patient started of bradycardia down, eventually went into PEA with a bradycardic rhythm. They administered CPR for approximately one and a half minutes and gave the patient 1 mg of epinephrine. They then had return of spontaneous circulation with a bradycardic rhythm in the 30s. They then started pacing the patient in the field and intubated him in the field with a 7.5 endotracheal tube. Prior to arrival EMS states that the patient regained consciousness and was able to follow commands. Upon arrival the patient is intubated. He suffered another PEA arrest in the emergency department, again with the return of spontaneous circulation after 1 cycle of CPR. Review of Systems ROS Unobtainable patient is sedated and intubated Past Family Social History Allergies: Coded Allergies: No Known Allergies (Unverified Allergy, Unknown, 04/04/17) Past Medical History Anxiety, Depression, HTN, Hyperlipidemia, PVD and ESRD on HD T// Past Surgical History Bowel Resection, Colostomy, Permacath, Cardiac Stent, LUE Fistula, RLE Femoropopliteal Bypass Reported Medications Reported Meds & Active Scripts Active Tramadol (Tramadol HCl) 50 Mg Tab 50 Mg PO Q6H PRN Zofran Odt (Ondansetron Odt) 4 Mg Tab 4 Mg SL Q6HR PRN Protonix (Pantoprazole Sodium) 40 Mg Tab 40 Mg PO BID Reported Lyrica (Pregabalin) 75 Mg Cap 75 Mg PO BID Enalapril (Enalapril Maleate) 10 Mg Tab 10 Mg PO DAILY Norvasc (Amlodipine Besylate) 10 Mg Tab 10 Mg PO DAILY Metoprolol Tartrate 50 Mg Tab 50 Mg PO BID Active Ordered Medications Current Medications Medications (Trade) Dose Ordered Sig/Hallie Route PRN Reason Start Time Stop Time Status Last Admin Dose Admin Sodium Chloride (NS Flush) 2 ml UNSCH PRN IVF FLUSH AFTER USING IV ACCESS 04/04/17 00:00 Dopamine HCl/ Dextrose 500 ml @ 8.438 mls/ hr TITRATE PRN IV Blood Pressure Management 04/04/17 00:15 04/04/17 00:20 Terbutaline Sulfate (Brethine Inj) 1 mg UNSCH PRN SQ For Extravasation 04/04/17 00:15 Propofol 100 ml @ 2.25 mls/hr TITRATE PRN IV Ordered RASS 04/04/17 00:15 Sodium Chloride 250 ml @ 15 mls/hr ONCE ONCE IV 04/04/17 01:15 04/04/17 17:54 Norepinephrine Bitartrate 250 ml @ 7.5 mls/hr TITRATE PRN IV Blood pressure management 04/04/17 02:30 04/04/17 00:20 Terbutaline Sulfate (Brethine Inj) 1 mg UNSCH PRN SQ For Extravasation 04/04/17 02:30 Sodium Chloride (NS Flush) 2 ml UNSCH PRN IV FLUSH FLUSH AFTER USING IV ACCESS 04/04/17 02:30 Sodium Chloride (NS Flush) 2 ml BID IV FLUSH 04/04/17 09:00 Acetaminophen (Tylenol) 650 mg Q6H PRN PO PAIN 1-5 AND/OR FEVER >101F 04/04/17 02:30 Morphine Sulfate (Morphine Inj) 2 mg Q2H PRN IV PUSH PAIN SCALE 6 TO 10 04/04/17 02:30 Pantoprazole Sodium (Protonix Inj) 40 mg Q12H IV PUSH 04/04/17 06:00 Lorazepam (Ativan Inj) 1 mg Q1H PRN IV PUSH Agitation/Sedation 04/04/17 02:30 Ondansetron HCl (Zofran Inj) 4 mg Q6H PRN IV PUSH NAUSEA OR VOMITING 04/04/17 02:30 Albuterol/ Ipratropium (Duoneb Neb) 1 ampule Q6HR NEB INH 04/04/17 04:00 Albuterol/ Ipratropium (Duoneb Neb) 1 ampule Q2HR NEB PRN INH WHEEZING 04/04/17 02:30 Miscellaneous Information 1 Q361D XX 04/04/17 02:30 Chlorhexidine Gluconate (Chlorhexidine 2% Cloth) 3 pack Taper DAILY@04 TOP 04/04/17 04:00 03/31/18 03:59 Chlorhexidine Gluconate (Chlorhexidine 2% Cloth) 3 pack UNSCH PRN TOP HYGIENIC CARE 04/04/17 02:30 Senna/Docusate Sodium (Kanwal-Colace) 1 tab BID PO 04/04/17 09:00 Magnesium Hydroxide (Milk Of Magnesia Liq) 30 ml Q12H PRN PO Mild constipation 04/04/17 02:30 Sennosides (Senokot) 17.2 mg Q12H PRN PO Moderate constipation 04/04/17 02:30 Bisacodyl (Dulcolax Supp) 10 mg DAILY PRN RECTAL SEVERE CONSITIPATION 04/04/17 02:30 Lactulose (Lactulose Liq) 30 ml DAILY PRN PO SEVERE CONSITIPATION 04/04/17 02:30 Chlorhexidine Gluconate (Peridex 0.12% Liq) 15 ml BID@08,20 MT 04/04/17 08:00 Midazolam HCl 100 ml @ 2 mls/hr TITRATE PRN IV SEDATION 04/04/17 02:30 Fentanyl Citrate 250 ml @ 5 mls/hr TITRATE PRN IV SEDATION 04/04/17 02:30 Sodium Bicarbonate 150 meq/Dextrose 1,150 ml @ 125 mls/hr Q9H12M IV 04/04/17 04:00 Albumin Human 500 ml @ 250 mls/hr Q6H IV 04/04/17 03:00 Piperacillin Sod/ Tazobactam Sod 50 ml @ 200 mls/hr Q6H IV 04/04/17 04:00 Pharmacy Profile Note 0 ml @ 0 mls/hr UNSCH OTHER 04/04/17 02:45 Calcium Gluconate 2 gm/Dextrose 120 ml @ 120 mls/hr ONCE ONCE IV 04/04/17 03:00 04/04/17 03:59 Vancomycin HCl 1500 mg/Sodium Chloride 515 ml @ 257.5 mls/ hr ONCE ONCE IV 04/04/17 05:00 04/04/17 06:59 Family History Reviewed, positive for DM and CAD Social History Negative for alcohol, tobacco or drugs. Physical Exam Vital Signs Vital Signs Date Time Temp Pulse Resp B/P (MAP) Pulse Ox O2 Delivery O2 Flow Rate FiO2 04/04/17 02:41 04/04/17 02:38 41 14 94/40 (58) 89 Ventilator 100 04/04/17 01:41 96.1 44 14 93/44 (60) 88 Ventilator 100 04/04/17 01:06 97.0 70 14 117/38 (64) Ventilator 100 04/04/17 00:45 95 100 04/04/17 00:20 41 94/40 04/04/17 00:20 70 80/40 04/04/17 00:12 100 04/04/17 00:07 100 04/03/17 23:58 100 100 04/03/17 23:56 70 14 90/40 (57) 04/03/17 23:52 100 Physical Exam GENERAL: Elderly appearing man sedated and intubated. SKIN: Warm and dry. HEAD: Normocephalic. EYES: No scleral icterus. No injection or drainage. NECK: Supple, trachea midline. No JVD or lymphadenopathy. CARDIOVASCULAR: Regular rate and rhythm without murmurs, gallops, or rubs. RESPIRATORY: Breath sounds equal bilaterally. No accessory muscle use. GASTROINTESTINAL: Abdomen soft, non-tender, nondistended. Colostomy in place MUSCULOSKELETAL: No cyanosis, or edema. BACK: Nontender without obvious deformity. NEURO EXAM: GCS: M 6V t E3 Mental Status: The patient is sedated and intubated, off sedation. A commands Cranial Nerves: Pupils are round, reactive to light. Reflexes: Biceps, patellar, and Achilles are 2/4 bilaterally. No clonus. Laboratory Laboratory Tests Test 04/04/17 00:05 04/04/17 00:29 White Blood Count 14.5 Red Blood Count 2.27 Hemoglobin 6.2 Hematocrit 21.1 Mean Corpuscular Volume 93.0 Mean Corpuscular Hemoglobin 27.4 Mean Corpuscular Hemoglobin Concent 29.4 Red Cell Distribution Width 18.7 Platelet Count 243 Mean Platelet Volume 10.3 Neutrophils (%) (Auto) 85.1 Lymphocytes (%) (Auto) 8.7 Monocytes (%) (Auto) 5.8 Eosinophils (%) (Auto) 0.1 Basophils (%) (Auto) 0.3 Neutrophils # (Auto) 12.3 Lymphocytes # (Auto) 1.3 Monocytes # (Auto) 0.8 Eosinophils # (Auto) 0.0 Basophils # (Auto) 0.0 CBC Comment AUTO DIFF Differential Total Cells Counted 100 Neutrophils % (Manual) 86 Lymphocytes % 8 Monocytes % 1 Neutrophils # (Manual) 13.2 Metamyelocytes 3 Promyelocytes 2 Differential Comment FINAL DIFF MANUAL Platelet Estimate NORMAL Platelet Morphology Comment NORMAL Ovalocytes 1+ Acanthocytes OCC Prothrombin Time 18.1 Prothromb Time International Ratio 1.6 Activated Partial Thromboplast Time 42.2 Blood Urea Nitrogen 33 Creatinine 4.38 Random Glucose 84 Total Protein 3.7 Albumin 1.1 Calcium Level LESS THAN 5.0 Magnesium Level 1.1 Alkaline Phosphatase 92 Aspartate Amino Transf (AST/SGOT) 143 Alanine Aminotransferase (ALT/SGPT) 85 Total Bilirubin 0.5 Sodium Level 146 Potassium Level 4.9 Chloride Level 119 Carbon Dioxide Level 10.9 Anion Gap 16 Estimat Glomerular Filtration Rate 14 Protein Corrected Calcium 6.4 Total Creatine Kinase 59 Troponin I 0.02 Blood Gas Puncture Site RT FEMORAL Blood Gas Patient Temperature 37.0 Blood Gas HCO3 12 Blood Gas Base Excess -16.8 Blood Gas Oxygen Saturation 90 Arterial Blood pH 7.06 Arterial Blood Partial Pressure CO2 43 Arterial Blood Partial Pressure O2 100 Arterial Blood Oxygen Content 9.2 Arterial Blood Carboxyhemoglobin 2.5 Arterial Blood Methemoglobin 1.1 Blood Gas Hemoglobin 7.2 Oxygen Delivery Device VENTILATOR Blood Gas Ventilator Setting PRVC / AC / Blood Gas Inspired Oxygen 100 Result Diagram: 04/04/17 0005 04/04/17 0005 Imaging Last 24 hours Impressions Chest X-Ray 04/04/17 0000 Signed Impressions: Service Date/Time: Tuesday, April 04, 2017 01:47 - CONCLUSION: 1. Right internal jugular central line position. 2. Bilateral areas of consolidation being worse on the right. Jan Mccord MD Chest X-Ray 04/03/17 2357 Signed Impressions: Service Date/Time: Tuesday, April 04, 2017 00:05 - CONCLUSION: 1. Status post sternotomy. 2. Diffuse consolidations being worse on the right likely related to edema/CHF. 3. Cardiomegaly. 4. ET tube and NG tube in good position. MD Jewel Lunai VTE Risk Assessment Caprini VTE Risk Assessment: Mod/High Risk (score >= 2) VTE Pharm Contraindication: Hemorrhage Caprini Risk Assessment Model Point Value = 1 Point Value = 2 Point Value = 3 Point Value = 5 Age 41-60 Minor surgery BMI > 25 kg/m2 Swollen legs Varicose veins or History of unexplained or recurrent spontaneous Oral contraceptives or hormone replacement Sepsis (< 1 month) Serious lung disease, including pneumonia (< 1 month) Abnormal pulmonary function Acute myocardial infarction Congestive heart failure (< 1 month) History of inflammatory bowel disease Medical patient at bed rest Age 61-74 Arthroscopic surgery Major open surgery (> 45 min) Laparoscopic surgery (> 45 min) Malignancy Confined to bed (> 72 hours) Immobilizing plaster cast Central venous access Age >= 75 History of VTE Family history of VTE Factor V Leiden Prothrombin [id number] Lupus anticoagulant Anticardiolipin antibodies Elevated serum homocysteine Heparin-induced thrombocytopenia Other congenital or acquired thrombophilia Stroke (< 1 month) Elective arthroplasty Hip, pelvis, or leg fracture Acute spinal cord injury (< 1 month) Prophylaxis Regimen Total Risk Factor Score Risk Level Prophylaxis Regimen 0-1 Low Early ambulation 2 Moderate Order ONE of the following: *Sequential Compression Device (SCD) *Heparin 5000 units SQ BID 3-4 Higher Order ONE of the following medications: *Heparin 5000 units SQ TID *Enoxaparin/Lovenox 40 mg SQ daily (WT < 150 kg, CrCl > 30 mL/min) *Enoxaparin/Lovenox 30 mg SQ daily (WT < 150 kg, CrCl > 10-29 mL/min) *Enoxaparin/Lovenox 30 mg SQ BID (WT < 150 kg, CrCl > 30 mL/min) AND/OR *Sequential Compression Device (SCD) 5 or more Highest Order ONE of the following medications: *Heparin 5000 units SQ TID (Preferred with Epidurals) *Enoxaparin/Lovenox 40 mg SQ daily (WT < 150 kg, CrCl > 30 mL/min) *Enoxaparin/Lovenox 30 mg SQ daily (WT < 150 kg, CrCl > 10-29 mL/min) *Enoxaparin/Lovenox 30 mg SQ BID (WT < 150 kg, CrCl > 30 mL/min) AND *Sequential Compression Device (SCD) Assessment and Plan Assessment and Plan Respiratory failure - Intubated for airway protection - Underlying pulmonary edema - Continue mechanical ventilation - No weaning until hemodynamically stable - Vent bundle - DuoNeb's when necessary and schedule Cardiac arrest - PEA - Rule out ACS - No history of coronary artery disease - Cardiology consult - EKG and first troponin is negative - Consider CT PE, however patient's hemodialysis IV contrast is now, unstable for VQ scan, even if positive patient wouldn't be able to be anticoagulated fully due to severe anemia requiring blood transfusion Anemia - Transfuse PRBCs - Monitor H&H - Protonix IV twice a day - occult blood Severe metabolic acidosis - Sodium bicarbonate drip - IV fluids resuscitation - Nephrology consult ESRD - Hemodialysis per nephrology DVT GI prophylaxis - Teds SCDs - No pharmacological DVT prophylaxis due to severe anemia - Protonix IV twice a day Critical Care: The total critical care time was 35 minutes. Time to perform other separately billable procedures was not included in the critical care time. Chris Chacon MD Apr 04, 2017 02:46
[2017-04-04 02:52] LABS: BLOOD GAS BASE EXCESS -14.6 mmol/L (-2-2); BLOOD GAS CARBOXYHEMOGLOBIN 1.5 % (0-4); BLOOD GAS HCO3 13 mmol/L (22-26); BLOOD GAS METHEMOGLOBIN 1.1 % (0-2); BLOOD GAS O2 HGB SATURATION 90 % (90-100); BLOOD GAS OXYGEN CONTENT 12.9 Vol % (12.0-20.0); BLOOD GAS PCO2 41 mmHg (38-42); BLOOD GAS PO2 86 mmHG (61-120); BLOOD GAS TOTAL HGB 10.1 G/DL (12.0-16.0); CRITICAL VALUE YES; OXYGEN DEVICE VENTILATOR
[2017-04-04 02:53] LABS: DRAW SITE ART LINE; FIO2 100 %; STAT YES; VENT SETTINGS PRVC / AC /
[2017-04-04] MEDS ORDERED: CALCIUM GLUCONATE INJ 2 GM in DEXTROSE 5% IN WATER 100ML INJ 100 ML IV ONE ×2 (03:00)
[2017-04-04] MEDS: RESP: ALBUTEROL 2.5 MG/IPRATROPIUM 0.5 MG NEB (SCH) INH ×3 (03:59→21:14)
[2017-04-04] MEDS: CHLORHEXIDINE GLUCONATE 2 % 1 PACK (2 CLOTHS) TOP SCH (04:00)
[2017-04-04] MEDS: ALBUMIN 5% INJ 500 ML IV SCH ×4 (04:09→20:12)
[2017-04-04] MEDS ORDERED: VANCOMYCIN 1,500 MG/NS 500 ML IV ONE ×2 (05:00)
[2017-04-04] MEDS ORDERED: SODIUM BICARBONATE 8.4% INJ 50 MEQ/50 ML SYR IV ONE ×2 (05:00→12:15)
[2017-04-04] MEDS ORDERED: EPINEPHrine HCL (1:10,000) 1 MG/10 ML SYRINGE IV ONE (05:00)
[2017-04-04 05:50] LABS: LACTIC ACID GHOST NOT REPORTABLE
[2017-04-04] MEDS: SODIUM BICARBONATE 8.4% INJ 150 MEQ in DEXTROSE 5% IN WATE 1000ML INJ 1,000 ML IV SCH ×6 (05:52→22:52)
[2017-04-04] MEDS: PIPERACIL-TAZO 2.25 GM PREMIX 50 ML IV SCH ×4 (05:54→22:49)
[2017-04-04] MEDS: PANTOPRAZOLE SODIUM 40 MG VIAL IV PUSH SCH ×2 (05:55→17:12)
[2017-04-04] MEDS: fentaNYL DRIP 250 ML IV PRN (07:03)
[2017-04-04] MEDS: DOCUSATE SODIUM 50 MG/SENNA 8.6 MG TAB PO SCH ×2 (09:07→20:09)
[2017-04-04] MEDS: CHLORHEXIDINE 0.12% (ORAL KIT) 15 ML CUP MT SCH ×2 (09:08→20:11)
[2017-04-04] MEDS: SODIUM CHLORIDE 0.9% FLUSH 10 ML FLUSH IV FLUSH SCH ×2 (09:08→20:10)
--- NOTE | 2017-04-04 09:29 | EKG ---
Date Performed: 04/04/2017 Time Performed: 00:33:04 PTAGE: 56 years EKG: Marked baseline artifact. Would repeat EKG. PREVIOUS TRACING : 02/26/2017 03.43 DOCTOR: Dallas De Jesus Interpretating Date/Time 04/04/2017 09:28:51
[2017-04-04 09:48] LABS: AUTOMATED NEUTROPHIL # 24.9 TH/MM3 (1.8-7.7); BASOPHIL # 0.1 TH/MM3 (0-0.2); BASOPHIL % 0.2 % (0.0-2.0); EOSINOPHIL % 0.1 % (0.0-4.0); HEMATOCRIT 29.7 % (39.0-51.0); LYMPH % 2.3 % (9.0-44.0); LYMPHOCYTE # 0.6 TH/MM3 (1.0-4.8); MEAN CELL VOLUME 89.2 FL (80.0-100.0); MEAN CORPUSCULAR HEMOGLOBIN 27.2 PG (27.0-34.0); MEAN CORPUSCULAR HGB CONC 30.5 % (32.0-36.0); MONO % 5.1 % (0.0-8.0); NEUT % 92.3 % (16.0-70.0); PLATELET COUNT 230 TH/MM3 (150-450); RED BLOOD COUNT 3.33 MIL/MM3 (4.50-5.90); RED CELL DISTRIBUTION WIDTH 17.1 % (11.6-17.2); WHITE BLOOD COUNT 26.9 TH/MM3 (4.0-11.0)
[2017-04-04 09:51] LABS: HEMO FLAGS AUTO DIFF
[2017-04-04 09:58] LABS: APTT (PATIENT) 31.1 SEC (24.3-30.1); INTERNATIONAL NORMALIZED RATIO 1.7 RATIO; PROTHROMBIN TIME - PATIENT 19.3 SEC (9.8-11.6)
[2017-04-04 10:46] LABS: BANDS 6 % (0-6); METAMYELOCYTES 3 % (0-1); MYELOCYTES 1 % (0-0); NEUTROPHIL # MANUAL DIFF 25.8 TH/MM3 (1.8-7.7); PLATELET ESTIMATE SMEAR NORMAL (NORMAL); PLATELET MORPHOLOGY NORMAL (NORMAL); POLYS (SEG NEUTROPHILS) 86 % (16-70); SCAN/DIFF FINAL DIFF MANUAL; WBC DIFF SAMPLE 100
[2017-04-04 10:47] LABS: OVALOCYTES 1+ (NORMAL)
[2017-04-04 11:14] LABS: BICARBONATE 16.7 MEQ/L (21.0-32.0); POTASSIUM 6.2 MEQ/L (3.5-5.1)
[2017-04-04 11:26] LABS: CALCIUM-PROTEIN CORRECTED 7.5 MG/DL (8.5-10.1); TOTAL BILIRUBIN ADULT 1.4 MG/DL (0.2-1.0)
[2017-04-04] MEDS ORDERED: SODIUM CHLOR 0.9% 1000 ML INJ 1,000 ML OTHER PRN ×2 (11:36)
[2017-04-04] MEDS ORDERED: SODIUM CHLOR 0.9% 1000 ML INJ 1,000 ML IV PRN (11:36)
[2017-04-04] MEDS ORDERED: HEPARIN SODIUM - IV 10,000 UNITS/10 ML VIAL PRN (11:45)
[2017-04-04] MEDS ORDERED: MANNITOL 12.5 GM/50 ML VIAL IV PRN (11:45)
[2017-04-04] MEDS ORDERED: cloNIDine HCL 0.1 MG TAB PO PRN (11:45)
[2017-04-04] MEDS ORDERED: GENTAMICIN SULFATE (DIALYSIS USE ONLY) 20 MG/2 ML VIAL OTHER PRN (11:45)
[2017-04-04] MEDS ORDERED: NITROGLYCERIN 0.4 MG SL 25 TABS/BTL SL PRN (11:45)
[2017-04-04] MEDS ORDERED: SODIUM CHLORIDE 0.9% FLUSH 10 ML FLUSH IV FLUSH PRN (11:45)
[2017-04-04] MEDS ORDERED: diphenhydrAMINE HCL 25 MG CAP PO PRN (11:45)
[2017-04-04] MEDS ORDERED: SODIUM CHLOR 0.9% 1000 ML INJ 2,000 ML IV ONE (12:00)
[2017-04-04] MEDS ORDERED: CALCIUM CHLORIDE INJ 2 GM in SODIUM CHLORIDE 0.9% INJ 100 ML IV ONE (12:30)
[2017-04-04] MEDS ORDERED: SODIUM CHLOR 0.9% 1000 ML INJ 1,000 ML IV ONE ×2 (12:30)
[2017-04-04] MEDS ORDERED: DEXTROSE 50% IN WATER 50 ML SYRINGE IV PUSH ONE (12:30)
[2017-04-04] MEDS ORDERED: INSULIN HUMAN REGULAR 1,000 UNITS/10 ML VIAL IV PUSH ONE (12:30)
[2017-04-04] MEDS ORDERED: RESP: ALBUTEROL 2.5 MG/IPRATROPIUM 0.5 MG NEB (SCH) NEB ONE (12:30)
[2017-04-04] MEDS ORDERED: PIPERACIL-TAZO 2.25 GM PREMIX 50 ML IV SCH (12:45)
--- NOTE | 2017-04-04 12:57 | EKG ---
Date Performed: 04/04/2017 Time Performed: 08:50:12 PTAGE: 56 years EKG: There is too much artifact to interpret EKG. PREVIOUS TRACING : 04/04/2017 00.33 DOCTOR: Dallas De Jesus Interpretating Date/Time 04/04/2017 12:55:52
[2017-04-04] MEDS: ALBUMIN 25% INJ 100 ML IV PRN ×2 (13:38→13:53)
[2017-04-04] MEDS ORDERED: VANCOMYCIN 1,000 MG/NS 250 ML IV ONE ×2 (16:00)
[2017-04-04] MEDS: GELATIN 12 MM/7 MM FOAM TOP PRN (16:19)
[2017-04-04 17:10] LABS: ALKALINE PHOSPHATASE 180 U/L (45-117); ALT (GPT) 2075 U/L (12-78); ANION GAP 12 MEQ/L (5-15); AST (GOT) 4499 U/L (15-37); BICARBONATE 26.5 MEQ/L (21.0-32.0); BLOOD UREA NITROGEN 36 MG/DL (7-18); CHLORIDE 100 MEQ/L (98-107); GLOMERULAR FILTRATION RATE 13 ML/MIN (>89); MAGNESIUM 1.5 MG/DL (1.5-2.5); POTASSIUM 4.3 MEQ/L (3.5-5.1); SODIUM (NA) 138 MEQ/L (136-145); TOTAL BILIRUBIN ADULT 1.2 MG/DL (0.2-1.0)
[2017-04-04 17:42] LABS: BLOOD GAS BASE EXCESS 3.8 mmol/L (-2-2); BLOOD GAS CARBOXYHEMOGLOBIN 1.2 % (0-4); BLOOD GAS HCO3 27 mmol/L (22-26); BLOOD GAS METHEMOGLOBIN 1.7 % (0-2); BLOOD GAS O2 HGB SATURATION 95 % (90-100); BLOOD GAS OXYGEN CONTENT 9.9 Vol % (12.0-20.0); BLOOD GAS PCO2 34 mmHg (38-42); BLOOD GAS PO2 104 mmHg (61-120); BLOOD GAS TOTAL HGB 7.2 G/DL (12.0-16.0); TEMP CORR TO 98.6
[2017-04-04 17:43] LABS: CRITICAL VALUE YES; OXYGEN DEVICE VENTILATOR
[2017-04-04 17:44] LABS: DRAW SITE ART LINE; FIO2 85 %; STAT YES
--- NOTE | 2017-04-04 18:16 | PD.CONS ---
HPI Consult Requested By Primary Care Physician Unknown History of Present Illness 56-year-old male with a history of end-stage renal disease, diabetes mellitus, hypertension and relatively recent CABG also has a history at times noncompliance with dialysis. Patient apparently missed his dialysis session yesterday sequently presenting to this institution with increasing shortness of breath noted to have evidence of bradycardia subsequently having a PEA requiring multiple episodes of CPR. There was significant leukocytosis on presentation blood count of 26.9, and elevated lactic acid level of 9 and a chest x-ray revealing bilateral consolidation right greater than left. Should be noted that the patient is not usually a significant fluid stef between dialysis sessions. Unfortunately patient was unable to provide any history of time of consultation as he is sedated on the ventilator. Review of Systems ROS Limitations: Clinical Condition, Intubated, Unresponsive Past Family Social History Allergies: Coded Allergies: No Known Allergies (Unverified Allergy, Unknown, 04/04/17) Past Medical History End-stage renal disease Congestive heart failure Hypertension Secondary hyperparathyroidism renal disease Diabetes mellitus Peripheral arterial disease/peripheral vascular disease Anemia renal disease Hx of ischemic colitis requiring partial colectomy and colostomy Hx gangrene right great toe Gastritis/Esophagitis Atherosclerotic vascular disease Depression/Anxiety C Diff history Mitral regurgitation Secondary hyperparathyroidism secondary to Vitamin D Deficiency Gastroparesis [facility] Status post recent CABG [facility]. I believe two-vessel. Bypass of the right leg. Amputation of the right big toe. Hemicolectomy/Colostomy. PCI status post stent 2 years ago after an MO. Left av fistula Right tunneled subclavian dialysis catheter placement EGD Reported Medications Reported Meds & Active Scripts Active Tramadol (Tramadol HCl) 50 Mg Tab 50 Mg PO Q6H PRN Zofran Odt (Ondansetron Odt) 4 Mg Tab 4 Mg SL Q6HR PRN Protonix (Pantoprazole Sodium) 40 Mg Tab 40 Mg PO BID Reported Lyrica (Pregabalin) 75 Mg Cap 75 Mg PO BID Enalapril (Enalapril Maleate) 10 Mg Tab 10 Mg PO DAILY Norvasc (Amlodipine Besylate) 10 Mg Tab 10 Mg PO DAILY Metoprolol Tartrate 50 Mg Tab 50 Mg PO BID Active Ordered Medications Current Medications Sodium Chloride (NS Flush) 2 ml UNSCH PRN IVF FLUSH AFTER USING IV ACCESS; Start 04/04/17 at 00:00 Sodium Chloride 500 ml @ 500 mls/hr ONCE ONCE IV ; Start 04/04/17 at 00:00; Stop 04/04/17 at 00:59; Status DC Midazolam HCl (Versed Inj) 5 mg STK-MED ONCE .ROUTE ; Start 04/04/17 at 00:03; Stop 04/04/17 at 00:04; Status DC Dopamine HCl/ Dextrose 500 ml @ As Directed STK-MED ONCE .ROUTE ; Start at 00:03; Stop 04/04/17 at 00:04; Status DC Midazolam HCl (Versed Inj) 2.5 mg ONCE ONCE IV PUSH Last administered on 04/04 00:20; Start 04/04/17 at 00:15; Stop 04/04/17 at 00:16; Status DC Dopamine HCl/ Dextrose 500 ml @ 8.438 mls/ hr TITRATE PRN IV Blood Pressure Management Last administered on 04/04/17 00:20; Start 04/04/17 at 00:15 Terbutaline Sulfate (Brethine Inj) 1 mg UNSCH PRN SQ For Extravasation; Start 04/04/17 at 00:15 Propofol 100 ml @ 2.25 mls/hr TITRATE PRN IV Ordered RASS; Start 04/04/17 at 00:15 Norepinephrine Bitartrate (Levophed Inj) 4 mg STK-MED ONCE .ROUTE ; Start 04/04 at 00:31; Stop 04/04/17 at 00:32; Status DC Sodium Chloride 250 ml @ 15 mls/hr ONCE ONCE IV Last administered on 05:55; Start 04/04/17 at 01:15; Stop 04/04/17 at 17:54; Status DC Norepinephrine Bitartrate 250 ml @ 7.5 mls/hr TITRATE PRN IV Blood pressure management Last administered on 04/04/17 11:10; Start 04/04/17 at 02:30 Terbutaline Sulfate (Brethine Inj) 1 mg UNSCH PRN SQ For Extravasation; Start 04/04/17 at 02:30 Sodium Chloride (NS Flush) 2 ml UNSCH PRN IV FLUSH FLUSH AFTER USING IV ACCESS ; Start 04/04/17 at 02:30 Sodium Chloride (NS Flush) 2 ml BID IV FLUSH Last administered on 04/04/17 09 :08; Start 04/04/17 at 09:00 Acetaminophen (Tylenol) 650 mg Q6H PRN PO PAIN 1-5 AND/OR FEVER >101F; Start 04/04/17 at 02:30 Morphine Sulfate (Morphine Inj) 2 mg Q2H PRN IV PUSH PAIN SCALE 6 TO 10; Start 04/04/17 at 02:30 Pantoprazole Sodium (Protonix Inj) 40 mg Q12H IV PUSH Last administered on 17:12; Start 04/04/17 at 06:00 Lorazepam (Ativan Inj) 1 mg Q1H PRN IV PUSH Agitation/Sedation; Start at 02:30 Ondansetron HCl (Zofran Inj) 4 mg Q6H PRN IV PUSH NAUSEA OR VOMITING; Start at 02:30 Albuterol/ Ipratropium (Duoneb Neb) 1 ampule Q6HR NEB INH Last administered on 04/04/17 09:21; Start 04/04/17 at 04:00 Albuterol/ Ipratropium (Duoneb Neb) 1 ampule Q2HR NEB PRN INH WHEEZING; Start 04/04/17 at 02:30 Miscellaneous Information 1 [id number] Last administered on 04/04/17 03:00; Start 04/04/17 at 02:30 Chlorhexidine Gluconate (Chlorhexidine 2% Cloth) 3 pack Taper DAILY@04 TOP Last administered on 04/04/17 04:00; Start 04/04/17 at 04:00; Stop 03/31/18 at 03:59 Chlorhexidine Gluconate (Chlorhexidine 2% Cloth) 3 pack UNSCH PRN TOP HYGIENIC CARE; Start 04/04/17 at 02:30 Senna/Docusate Sodium (Kanwal-Colace) 1 tab BID PO Last administered on 09:07; Start 04/04/17 at 09:00 Magnesium Hydroxide (Milk Of Magnesia Liq) 30 ml Q12H PRN PO Mild constipation ; Start 04/04/17 at 02:30 Sennosides (Senokot) 17.2 mg Q12H PRN PO Moderate constipation; Start at 02:30 Bisacodyl (Dulcolax Supp) 10 mg DAILY PRN RECTAL SEVERE CONSITIPATION; Start 04/04/17 at 02:30 Lactulose (Lactulose Liq) 30 ml DAILY PRN PO SEVERE CONSITIPATION; Start 04/04 at 02:30 Chlorhexidine Gluconate (Peridex 0.12% Liq) 15 ml BID@08,20 MT Last administered on 04/04/17 09:08; Start 04/04/17 at 08:00 Midazolam HCl 100 ml @ 2 mls/hr TITRATE PRN IV SEDATION Last administered on 09:16; Start 04/04/17 at 02:30 Fentanyl Citrate 250 ml @ 5 mls/hr TITRATE PRN IV SEDATION Last administered on 04/04/17 07:03; Start 04/04/17 at 02:30 Sodium Bicarbonate 150 meq/Dextrose 1,150 ml @ 125 mls/hr Q9H12M IV Last administered on 04/04/17 15:19; Start 04/04/17 at 04:00 Albumin Human 500 ml @ 250 mls/hr Q6H IV Last administered on 04/04/17 17:13 ; Start 04/04/17 at 03:00 Piperacillin Sod/ Tazobactam Sod 50 ml @ 200 mls/hr Q6H IV Last administered on 04/04/17 17:12; Start 04/04/17 at 04:00 Pharmacy Profile Note 0 ml @ 0 mls/hr UNSCH OTHER ; Start 04/04/17 at 02:45 Vancomycin HCl 1000 mg/Sodium Chloride 250 ml @ 250 mls/hr ONCE ONCE IV ; Start 04/04/17 at 02:45; Stop 04/04/17 at 03:44; Status UNV Sodium Bicarbonate (Sodium Bicarbonate 8.4% Inj) 50 meq ONCE ONCE IV PUSH Last administered on 04/04/17 04:09; Start 04/04/17 at 02:45; Stop 04/04/17 at 02:49; Status DC Calcium Gluconate 2 gm/Dextrose 120 ml @ 120 mls/hr ONCE ONCE IV Last administered on 04/04/17 05:51; Start 04/04/17 at 03:00; Stop 04/04/17 at 03 :59; Status DC Vancomycin HCl 1500 mg/Sodium Chloride 515 ml @ 257.5 mls/ hr ONCE ONCE IV Last administered on 04/04/17 05:55; Start 04/04/17 at 05:00; Stop 04/04/17 at 06:59; Status DC Sodium Chloride 1,000 ml @ 0 mls/hr Q0M PRN OTHER For Prime & Rinse Back; Start 04/04/17 at 11:36 Sodium Chloride 1,000 ml @ 200 mls/hr Q5H PRN IV WITH DIALYSIS; Start at 11:36 Sodium Chloride 1,000 ml @ 0 mls/hr Q0M PRN OTHER WITH DIALYSIS; Start at 11:36 Mannitol (Mannitol Inj) 12.5 gm UNSCH PRN IV WITH DIALYSIS; Start 04/04/17 at 11:45 Albumin Human 100 ml @ 60 mls/hr UNSCH PRN IV WITH DIALYSIS Last administered on 04/04/17 13:53; Start 04/04/17 at 11:45 Sodium Chloride (NS Flush) 5 ml UNSCH PRN IV FLUSH WITH DIALYSIS; Start at 11:45 Heparin Sodium (Porcine) (Heparin Inj) UNSCH PRN .XX WITH DIALYSIS; Start at 11:45 Gentamicin Sulfate (Gentamicin (Dialysis) Inj) 20 mg UNSCH PRN OTHER WITH DIALYSIS; Start 04/04/17 at 11:45 Ondansetron HCl (Zofran Inj) 4 mg UNSCH PRN IV PUSH WITH DIALYSIS; Start 04/04 at 11:45 Acetaminophen (Tylenol) 650 mg UNSCH PRN PO for headach, pain, temp > 101F; Start 04/04/17 at 11:45 Diphenhydramine HCl (Benadryl) 25 mg UNSCH PRN PO for hives/itching/anaphylaxis ; Start 04/04/17 at 11:45 Nitroglycerin (Nitrostat Sl) 0.4 mg UNSCH PRN SL CHEST PAIN; Start 04/04/17 at 11:45 Clonidine (Catapres) 0.1 mg UNSCH PRN PO for BP > 180/100 X 2 readings; Start 04/04/17 at 11:45 Gelatin (Gelfoam 12 Mm/7 Mm Top) 1 foam UNSCH PRN TOP SEE LABEL COMMENTS Last administered on 04/04/17 16:19; Start 04/04/17 at 11:45 Calcium Chloride 2 gm/Sodium Chloride 120 ml @ 120 mls/hr ONCE ONCE IV Last administered on 04/04/17 13:58; Start 04/04/17 at 12:30; Stop 04/04/17 at 13 :29; Status DC Sodium Chloride 2,000 ml @ 0 mls/hr Q0M ONCE IV Last administered on 12:00; Start 04/04/17 at 12:00; Stop 04/04/17 at 12:16; Status DC Sodium Bicarbonate (Sodium Bicarbonate 8.4% Inj) 100 meq NOW ONCE IV Last administered on 04/04/17 12:15; Start 04/04/17 at 12:15; Stop 04/04/17 at 12 :21; Status DC Sodium Chloride 1,000 ml @ 999 mls/hr BOLUS ONCE IV ; Start 04/04/17 at 12:30 ; Stop 04/04/17 at 13:35; Status DC Sodium Chloride 1,000 ml @ 999 mls/hr BOLUS ONCE IV ; Start 04/04/17 at 12:30 ; Stop 04/04/17 at 13:35; Status DC Albuterol/ Ipratropium (Duoneb Neb) 1 ampule ONCE ONCE NEB Last administered on 04/04/17 15:46; Start 04/04/17 at 12:30; Stop 04/04/17 at 13:33; Status DC Insulin Human Regular (NovoLIN R INJ) 7 units ONCE ONCE IV PUSH Last administered on 04/04/17 13:59; Start 04/04/17 at 12:30; Stop 04/04/17 at 13 :33; Status DC Dextrose (D50w (Syr) Inj) 25 ml ONCE ONCE IV PUSH Last administered on 13:59; Start 04/04/17 at 12:30; Stop 04/04/17 at 13:33; Status DC Piperacillin Sod/ Tazobactam Sod 50 ml @ 100 mls/hr Q6H IV ; Start 04/04/17 at 12:45; Status UNV Vancomycin HCl 1000 mg/Sodium Chloride 250 ml @ 250 mls/hr ONCE ONCE IV ; Start 04/04/17 at 12:45; Stop 04/04/17 at 13:44; Status UNV Vancomycin HCl 1000 mg/Sodium Chloride 250 ml @ 250 mls/hr ONCE ONCE IV Last administered on 04/04/17t 17:13; Start 04/04/17 at 16:00; Stop 04/04/17 at 16 :59; Status DC Family History Unobtainable from patient presently. Social History History of marijuana and tobacco usage. Physical Exam Vital Signs Vital Signs Date Time Temp Pulse Resp B/P (MAP) Pulse Ox O2 Delivery O2 Flow Rate FiO2 04/04/17 18:00 69 123/58 04/04/17 17:15 98.4 73 17 151/66 100 04/04/17 16:00 100 04/04/17 15:43 100 100 04/04/17 13:00 99.2 55 16 103/57 (72) 94 112/55 (74) 04/04/17 12:30 99.2 79 23 111/55 (73) 95 121/57 (78) 04/04/17 12:09 99.3 53 16 111/53 93 04/04/17 12:00 99.2 53 16 103/58 (73) 94 111/53 (72) 04/04/17 12:00 75 04/04/17 11:45 75 04/04/17 11:39 93 70 04/04/17 11:30 99.2 53 17 102/56 (71) 96 110/52 (71) 04/04/17 11:10 52 105/50 04/04/17 11:09 52 101/48 04/04/17 11:00 99.1 58 15 96/53 (67) 96 103/49 (67) 04/04/17 10:30 98.9 53 16 93/51 (65) 94 101/48 (65) 04/04/17 10:00 98.9 52 16 91/54 (66) 93 100/46 (64) 04/04/17 09:30 70 04/04/17 09:30 52 102/50 04/04/17 09:30 98.4 52 12 102/50 (67) 97 110/53 (72) 04/04/17 09:24 97 70 04/04/17 09:00 80 04/04/17 09:00 98.1 79 15 106/51 (69) 98 116/57 (76) 04/04/17 08:30 97.8 79 19 105/54 (71) 97 118/56 (76) 04/04/17 08:00 100 04/04/17 08:00 97.4 79 25 111/53 96 04/04/17 08:00 97.5 79 25 111/53 (72) 96 121/57 (78) 04/04/17 07:46 97.1 79 26 122/55 95 04/04/17 07:40 96.9 55 24 121/57 95 04/04/17 07:30 97.1 54 24 110/53 (72) 95 121/57 (78) 04/04/17 07:00 95.3 53 23 116/57 (76) 88 122/50 (74) 04/04/17 06:00 52 04/04/17 06:00 94.8 52 16 112/56 (74) 97 127/58 (81) 04/04/17 06:00 52 127/58 04/04/17 05:45 94.6 51 18 126/56 100 04/04/17 05:30 49 126/58 04/04/17 05:15 49 126/56 04/04/17 05:00 94.7 48 16 112/54 (73) 100 126/57 (80) 04/04/17 05:00 48 126/57 04/04/17 04:40 64 120/55 04/04/17 04:30 79 119/55 04/04/17 04:25 78 116/53 04/04/17 04:11 100 100 04/04/17 04:00 95.2 80 17 96/51 (66) 100 109/49 (69) 04/04/17 04:00 80 04/04/17 03:00 95.2 81 17 91/50 (64) 97 104/44 (64) 04/04/17 03:00 81 91/48 04/04/17 03:00 81 91/48 04/04/17 03:00 79 91/48 (62) 105/45 (65) 04/04/17 02:45 95 100 04/04/17 02:44 90 100 04/04/17 02:41 04/04/17 02:38 41 14 94/40 (58) 89 Ventilator 100 04/04/17 01:41 96.1 44 14 93/44 (60) 88 Ventilator 100 04/04/17 01:06 97.0 70 14 117/38 (64) Ventilator 100 04/04/17 00:45 95 100 04/04/17 00:20 41 94/40 04/04/17 00:20 70 80/40 04/04/17 00:12 100 04/04/17 00:07 100 04/03/17 23:58 100 100 04/03/17 23:56 70 14 90/40 (57) 04/03/17 23:52 100 Physical Exam GENERAL: Male who appears somewhat older than his stated age. ET tube in place patient on a ventilator. SKIN: Warm and dry. HEAD: Normocephalic. EYES: No scleral icterus. No injection or drainage. NECK: Supple, trachea midline. No JVD or lymphadenopathy. CARDIOVASCULAR: Regular rate and rhythm without murmurs, gallops, or rubs. CABG scar present and healed. AV fistula appears to be intact with no evidence of infection. RESPIRATORY: Breath sounds equal bilaterally. No accessory muscle use. GASTROINTESTINAL: Abdomen soft, non-tender, nondistended. MUSCULOSKELETAL: No cyanosis, or edema. BACK: Nontender without obvious deformity. No CVA tenderness. Laboratory Laboratory Tests Test 04/04/17 00:05 04/04/17 00:29 04/04/17 02:30 04/04/17 03:30 White Blood Count 14.5 Red Blood Count 2.27 Hemoglobin 6.2 Hematocrit 21.1 Mean Corpuscular Volume 93.0 Mean Corpuscular Hemoglobin 27.4 Mean Corpuscular Hemoglobin Concent 29.4 Red Cell Distribution Width 18.7 Platelet Count 243 Mean Platelet Volume 10.3 Neutrophils (%) (Auto) 85.1 Lymphocytes (%) (Auto) 8.7 Monocytes (%) (Auto) 5.8 Eosinophils (%) (Auto) 0.1 Basophils (%) (Auto) 0.3 Neutrophils # (Auto) 12.3 Lymphocytes # (Auto) 1.3 Monocytes # (Auto) 0.8 Eosinophils # (Auto) 0.0 Basophils # (Auto) 0.0 CBC Comment AUTO DIFF Differential Total Cells Counted 100 Neutrophils % (Manual) 86 Lymphocytes % 8 Monocytes % 1 Neutrophils # (Manual) 13.2 Metamyelocytes 3 Promyelocytes 2 Differential Comment FINAL DIFF MANUAL Platelet Estimate NORMAL Platelet Morphology Comment NORMAL Ovalocytes 1+ Acanthocytes OCC Prothrombin Time 18.1 Prothromb Time International Ratio 1.6 Activated Partial Thromboplast Time 42.2 Blood Urea Nitrogen 33 Creatinine 4.38 Random Glucose 84 Total Protein 3.7 Albumin 1.1 Calcium Level LESS THAN 5.0 Magnesium Level 1.1 Alkaline Phosphatase 92 Aspartate Amino Transf (AST/SGOT) 143 Alanine Aminotransferase (ALT/SGPT) 85 Total Bilirubin 0.5 Sodium Level 146 Potassium Level 4.9 Chloride Level 119 Carbon Dioxide Level 10.9 Anion Gap 16 Estimat Glomerular Filtration Rate 14 Protein Corrected Calcium 6.4 Total Creatine Kinase 59 Troponin I 0.02 Blood Gas Puncture Site RT FEMORAL ART LINE Blood Gas Patient Temperature 37.0 37.0 Blood Gas HCO3 12 13 Blood Gas Base Excess -16.8 -14.6 Blood Gas Oxygen Saturation 90 90 Arterial Blood pH 7.06 7.13 Arterial Blood Partial Pressure CO2 43 41 Arterial Blood Partial Pressure O2 100 86 Arterial Blood Oxygen Content 9.2 12.9 Arterial Blood Carboxyhemoglobin 2.5 1.5 Arterial Blood Methemoglobin 1.1 1.1 Blood Gas Hemoglobin 7.2 10.1 Oxygen Delivery Device VENTILATOR VENTILATOR Blood Gas Ventilator Setting PRVC / AC / PRVC / AC / Blood Gas Inspired Oxygen 100 100 Nasal Screen MRSA (PCR) MRSA NOT DETECTED Test 04/04/17 03:41 04/04/17 05:35 04/04/17 09:15 04/04/17 10:35 Lactic Acid Level 9.0 8.7 9.4 Troponin I 0.04 0.04 White Blood Count 26.9 Red Blood Count 3.33 Hemoglobin 9.1 Hematocrit 29.7 Mean Corpuscular Volume 89.2 Mean Corpuscular Hemoglobin 27.2 Mean Corpuscular Hemoglobin Concent 30.5 Red Cell Distribution Width 17.1 Platelet Count 230 Mean Platelet Volume 10.4 Neutrophils (%) (Auto) 92.3 Lymphocytes (%) (Auto) 2.3 Monocytes (%) (Auto) 5.1 Eosinophils (%) (Auto) 0.1 Basophils (%) (Auto) 0.2 Neutrophils # (Auto) 24.9 Lymphocytes # (Auto) 0.6 Monocytes # (Auto) 1.4 Eosinophils # (Auto) 0.0 Basophils # (Auto) 0.1 CBC Comment AUTO DIFF Differential Total Cells Counted 100 Neutrophils % (Manual) 86 Band Neutrophils % 6 Lymphocytes % 3 Monocytes % 1 Neutrophils # (Manual) 25.8 Metamyelocytes 3 Myelocytes 1 Differential Comment FINAL DIFF MANUAL Platelet Estimate NORMAL Platelet Morphology Comment NORMAL Ovalocytes 1+ Prothrombin Time 19.3 Prothromb Time International Ratio 1.7 Activated Partial Thromboplast Time 31.1 Blood Urea Nitrogen 55 Creatinine 6.94 Random Glucose 286 Total Protein 6.2 Albumin 2.7 Calcium Level 7.0 Alkaline Phosphatase 215 Aspartate Amino Transf (AST/SGOT) 3476 Alanine Aminotransferase (ALT/SGPT) 1726 Total Bilirubin 1.4 Sodium Level 132 Potassium Level 6.2 Chloride Level 98 Carbon Dioxide Level 16.7 Anion Gap 17 Estimat Glomerular Filtration Rate 8 Protein Corrected Calcium 7.5 Total Creatine Kinase 198 Test 04/04/17 15:00 04/04/17 15:20 04/04/17 17:34 Blood Urea Nitrogen 36 Creatinine 4.60 Random Glucose 227 Total Protein 6.3 Albumin 3.3 Calcium Level 7.9 Magnesium Level 1.5 Alkaline Phosphatase 180 Aspartate Amino Transf (AST/SGOT) 4499 Alanine Aminotransferase (ALT/SGPT) 2075 Total Bilirubin 1.2 Sodium Level 138 Potassium Level 4.3 Chloride Level 100 Carbon Dioxide Level 26.5 Anion Gap 12 Estimat Glomerular Filtration Rate 13 Lactic Acid Level 4.8 Blood Gas Puncture Site ART LINE Blood Gas Patient Temperature 98.6 Blood Gas HCO3 27 Blood Gas Base Excess 3.8 Blood Gas Oxygen Saturation 95 Arterial Blood pH 7.51 Arterial Blood Partial Pressure CO2 34 Arterial Blood Partial Pressure O2 104 Arterial Blood Oxygen Content 9.9 Arterial Blood Carboxyhemoglobin 1.2 Arterial Blood Methemoglobin 1.7 Blood Gas Hemoglobin 7.2 Oxygen Delivery Device VENTILATOR Blood Gas Ventilator Setting Blood Gas Inspired Oxygen 85 Date/Time Source Procedure Growth Status 04/04/17 03:57 Blood Peripheral Aerobic Blood Culture Pending Received 04/04/17 03:57 Blood Peripheral Anaerobic Blood Culture Pending Received 04/04/17 03:25 Sputum Endotracheal Gram Stain Pending Received 04/04/17 03:25 Sputum Endotracheal Sputum Culture Pending Received Result Diagram: 04/04/17 1035 04/04/17 1500 Imaging Last 48 hours Impressions Chest X-Ray 04/04/17 0000 Signed Impressions: Service Date/Time: Tuesday, April 04, 2017 01:47 - CONCLUSION: 1. Right internal jugular central line position. 2. Bilateral areas of consolidation being worse on the right. Jan Mccord MD Chest X-Ray 04/03/17 5992 Signed Impressions: Service Date/Time: Tuesday, April 04, 2017 00:05 - CONCLUSION: 1. Status post sternotomy. 2. Diffuse consolidations being worse on the right likely related to edema/CHF. 3. Cardiomegaly. 4. ET tube and NG tube in good position. Jan Mccord MD Assessment and Plan Problem List: (1) ESRD (end stage renal disease) on dialysis ICD Codes: N18.6 - End stage renal disease; Z99.2 - Dependence on renal dialysis Status: Chronic Plan: Hemodialysis completed today as ordered and will continue Sunday regimen as per outpatient schedule. Medication should be adjusted for the patient's end-stage renal disease when indicated. Avoid gadolinium. (2) Hyperkalemia ICD Codes: E87.5 - Hyperkalemia Status: Acute Plan: Was most likely related to patient missing dialysis as well as metabolic acidosis. Improved with acute hemodialysis today. (3) Sepsis due to pneumonia ICD Codes: J18.9 - Pneumonia, unspecified organism; A41.9 - Sepsis, unspecified organism Plan: Appears to be clinically present. There may have been a component of some fluid retention related patient missing dialysis but I believe the primary consideration here would be pneumonia as far as chest x-ray findings are concerned. Defer antibiotic therapy to critical care. (4) Shock liver ICD Codes: K72.00 - Acute and subacute hepatic failure without coma Plan: Defer management to critical care. (5) Cardiac arrest with pulseless electrical activity ICD Codes: I46.9 - Cardiac arrest, cause unspecified Status: Acute (6) HTN (hypertension) ICD Codes: I10 - Hypertension Status: Chronic (7) Anemia of renal disease ICD Codes: D63.1 - Anemia in chronic kidney disease Status: Chronic Plan: Epogen as ordered with follow-up of hemoglobin. David Kennedy MD Apr 04, 2017 18:16
[2017-04-04] MEDS: EPOETIN ALFA 10,000 UNITS/ML VIAL SQ SCH (20:51)
--- NOTE | 2017-04-04 23:48 | MB ---
cc: JHONATHAN ENRIQUEZ DO DATE OF CONSULTATION: 04/04/2017 REASON FOR CONSULTATION: PEA arrest. HISTORY OF PRESENT ILLNESS Missael Cintron is a 56-year-old male who presented to [facility] on April 04, 2017 after PEA arrest. According to the records the patient called 01-05- due to shortness of breath and on their arrival the patient was significantly short of breath. At that time he started becoming more and more bradycardic and went into PEA arrest with a bradycardic rhythm. They administered CPR for short period time of around 1-1/2 minute and gave the patient 1 milligram of epinephrine. He had return of spontaneous circulation with a bradycardiac rhythm in the 30s. He was then paced in the field transcutaneously and he was intubated. Apparently during the trip to the emergency room the patient was regaining consciousness and able to follow simple commands. While in the emergency room, he had another PEA arrest again with return of spontaneous circulation after one cycle of CPR. In seeing him, he is currently stable and being transcutaneously paced at 80 beats per minute. The patient was previously admitted to [facility] on February 26, 2017 due to chest pain and elevated troponin. He had a significant drop in his hemoglobin and I discussed with him working up his elevated troponin but with a concern for his drop in hemoglobin. He then left against medical advice stating that he had pain all over his body secondary to neuropathy and wanted further pain medications. He then went to [facility] where he underwent a cardiac catheterization on February 27, 2017 and was found to have multivessel disease. He underwent CABG on March 01, 2017 with the BERG to LAD and an SVG to OM1. While there he did have occasional drop in his hemoglobin and received packed red blood cells. PAST MEDICAL HISTORY 1. Coronary artery disease. 2. Peripheral artery disease. 3. Anxiety 4. Depression 5. Hypertension 6. Hyperlipidemia 7. End-stage renal disease on hemodialysis. PAST MEDICAL HISTORY 1. CABG x2 (March 01, 2017 at [facility]) with BERG to LAD, SVG to OM1. 2. Cardiac catheterization (February 27, 2017 at [facility]) left main normal, LAD 80%, left circ 80%, OM1 90%, RCA 100% with left to right collaterals. 3. History of a coronary stent around 13 years ago to an unknown vessel. 4. Bowel resection. 5. Colostomy. 6. PermCath 7. Left upper extremity fistula. 8. Right lower extremity fem-pop bypass. ALLERGIES NO KNOWN DRUG ALLERGIES. MEDICATIONS 1. Metoprolol tartrate 50 mg b.i.d. 2. Norvasc 10 mg daily 3. Enalapril 10 mg daily 4. Tramadol 50 mg every 6 hours as needed for pain. 5. Lyrica 75 mg b.i.d. 6. Zofran 4 mg as needed for nausea and vomiting. 7. Protonix 40 mg b.i.d. FAMILY HISTORY Denies sudden cardiac within the family. SOCIAL HISTORY The patient lives alone. Denies alcohol, tobacco abuse. Admits to smoking marijuana. REVIEW OF SYSTEMS Unobtainable, secondary to the patient currently being intubated and sedated. PHYSICAL EXAMINATION Vital signs: Temperature 98.5, heart rate 74, blood pressure 144/70, respirations 16, pulse ox 100% on the ventilator. In general the patient is intubated and sedated. Appears older than stated age. HEENT: Pupils are equal and round. Neck: Supple. No JVD at 45 degrees. No carotid bruits heard bilaterally. Carotid upstroke is brisk in nature. Heart: Regular rate and rhythm. Positive first and second heart sounds with no murmurs, gallops or rubs. Lungs: Clear to auscultation bilaterally. No wheezes, rales or rhonchi. Abdomen is soft, nontender, nondistended. No organomegaly noted. Colostomy noted. Extremities: Show no clubbing, cyanosis or edema. Neurologically: The patient is sedated and intubated. Skin: Warm, dry and intact. LABORATORY WORK: Hemoglobin 9.1, hematocrit 29.7, platelets 230. INR 1.7. Potassium 4.3, BUN 36, creatinine 4.6, lactic acid 9.4, AST 4499, ALT 2075, troponin 0.04. IMPRESSION 1. PEA arrest x2 requiring CPR and epinephrine with return of spontaneous circulation. 1. Vent dependent respiratory failure. 2. Significant anemia with a hemoglobin of 6.2 on arrival, possible symptomatic anemia leading to shortness of breath. 3. Profound bradycardia leading to PEA arrest less likely due to hypoxia. 4. Coronary artery disease with recent coronary artery bypass grafting x2. 5. Lactic acidosis 6. Shock liver most likely due to cardiogenic shock. 7. Cardiogenic shock. 8. End-stage renal disease on hemodialysis. RECOMMENDATIONS 1. Mr. Cintron presented with significant shortness of breath most likely leading to bradycardia and PEA arrest. He has since been resuscitated with spontaneous return of circulation. 2. He had been transcutaneously paced at 80 beats per minute and I have turned this down to 40 as a backup as he has an underlying sinus rhythm of 50 to 60 beats per minute. 3. As far as his recent bypass goes, he did not spill troponins and I do not believe that this is a cardiac event. We will plan on placing him back on his aspirin as the consequences of one of his grafts closing could be detrimental. 4. Vent per critical care team. 5. We will plan to recheck an echocardiogram. Further recommendations will be made based on the hospital course. Greater than 60 minutes of critical care time and evaluating the patient, communicating with the critical care team as well as nursing and reviewing previous records from both [facility] and [facility]. Thank you for allowing me to see Missael Cintron. If there are any questions please do not hesitate to call. Jhonathan Enriquez DO VGP/MALIK /11:04 PM /11:25 PM
[2017-04-05] VITALS (39 sets, daily range): BP systolic 100–150; BP diastolic 54–83; PULSE 61–103; RESP 0–18; TEMP 98–100.1; O2SAT 91–100
[2017-04-05] MEDS: RESP: ALBUTEROL 2.5 MG/IPRATROPIUM 0.5 MG NEB (SCH) INH ×4 (03:02→19:59)
[2017-04-05] MEDS: ALBUMIN 5% INJ 500 ML IV SCH ×4 (03:04→20:51)
[2017-04-05] MEDS: CHLORHEXIDINE GLUCONATE 2 % 1 PACK (2 CLOTHS) TOP SCH (04:00)
[2017-04-05] MEDS: PIPERACIL-TAZO 2.25 GM PREMIX 50 ML IV SCH ×4 (04:16→20:52)
[2017-04-05 05:06] LABS: AUTOMATED NEUTROPHIL # 7.8 TH/MM3 (1.8-7.7); BASOPHIL % 0.1 % (0.0-2.0); EOSINOPHIL % 0.1 % (0.0-4.0); LYMPH % 5.4 % (9.0-44.0); LYMPHOCYTE # 0.5 TH/MM3 (1.0-4.8); MEAN CELL VOLUME 85.3 FL (80.0-100.0); MEAN CORPUSCULAR HEMOGLOBIN 28.2 PG (27.0-34.0); MEAN CORPUSCULAR HGB CONC 33.1 % (32.0-36.0); MONO % 2.4 % (0.0-8.0); PLATELET COUNT 78 TH/MM3 (150-450); RED BLOOD COUNT 2.45 MIL/MM3 (4.50-5.90); RED CELL DISTRIBUTION WIDTH 17.1 % (11.6-17.2); WHITE BLOOD COUNT 8.5 TH/MM3 (4.0-11.0)
[2017-04-05 05:11] LABS: HEMO FLAGS AUTO DIFF
[2017-04-05 05:16] LABS: INTERNATIONAL NORMALIZED RATIO 1.9 RATIO; PROTHROMBIN TIME - PATIENT 21.4 SEC (9.8-11.6)
[2017-04-05 05:18] LABS: HEMATOCRIT 20.9 % (39.0-51.0)
--- NOTE | 2017-04-05 05:45 | RADRPT ---
EXAM DATE/TIME: 04/05/2017 04:29 [facility] COMPARISON: CHEST SINGLE AP, April 04, 2017, 1:47. INDICATIONS : Shortness of breath, possible pulmonary disease. MEDICAL HISTORY : Hypertension. Congestive heart failure. Diabetes mellitus type II. SURGICAL HISTORY : CABG. ENCOUNTER: Subsequent ACUITY: 2 days PAIN SCORE: Non-responsive. LOCATION: Bilateral chest FINDINGS: The ET tube, NG tube, and right internal jugular central line are well placed. The heart size is mild ly enlarged. The patient is status post sternotomy. Lungs demonstrate diffuse mixed interstitial and alveolar consolidation being worse in the right than the left. CONCLUSION: Diffuse pulmonary consolidation and mild enlargement of the heart likely related to CHF. The appearan ce is unchanged. Jan Mccord MD on April 05, 2017 at 5:43 Board Certified Radiologist. This report was verified electronically.
[2017-04-05 05:49] LABS: BICARBONATE 32.7 MEQ/L (21.0-32.0); MAGNESIUM 1.4 MG/DL (1.5-2.5); POTASSIUM 3.5 MEQ/L (3.5-5.1)
[2017-04-05] MEDS: PANTOPRAZOLE SODIUM 40 MG VIAL IV PUSH SCH ×2 (05:55→17:54)
[2017-04-05 06:04] LABS: CALCIUM-PROTEIN CORRECTED 7.7 MG/DL (8.5-10.1); TOTAL BILIRUBIN ADULT 1.1 MG/DL (0.2-1.0)
[2017-04-05 06:54] LABS: PLATELET ESTIMATE SMEAR LOW (NORMAL)
[2017-04-05 06:55] LABS: PLATELET MORPHOLOGY ENLARGED (NORMAL); SCAN/DIFF AUTO DIFF CONFIRMED
[2017-04-05] MEDS: SODIUM BICARBONATE 8.4% INJ 150 MEQ in DEXTROSE 5% IN WATE 1000ML INJ 1,000 ML IV SCH ×2 (08:03)
[2017-04-05] MEDS: SODIUM CHLORIDE 0.9% FLUSH 10 ML FLUSH IV FLUSH SCH ×2 (08:03→20:51)
[2017-04-05] MEDS: DOCUSATE SODIUM 50 MG/SENNA 8.6 MG TAB PO SCH ×2 (08:03→20:52)
[2017-04-05] MEDS: ASPIRIN 81 MG CHEW TAB CHEW SCH (08:03)
[2017-04-05] MEDS: CHLORHEXIDINE 0.12% (ORAL KIT) 15 ML CUP MT SCH ×2 (08:05→20:51)
--- NOTE | 2017-04-05 09:49 | HHI.CCPN ---
Subjective Remarks/Hospital Course 56-year-old male presents via EMS after the patient was coded in the field by the paramedics and had return of spontaneous circulation. According to EMS they received a call for shortness of breath and when they arrived the patient's symptoms progressed. They stated that the patient started of bradycardia down, eventually went into PEA with a bradycardic rhythm. They administered CPR for approximately one and a half minutes and gave the patient 1 mg of epinephrine. They then had return of spontaneous circulation with a bradycardic rhythm in the 30s. They then started pacing the patient in the field and intubated him in the field with a 7.5 endotracheal tube. Prior to arrival EMS states that the patient regained consciousness and was able to follow commands. Upon arrival the patient is intubated. He suffered another PEA arrest in the emergency department, again with the return of spontaneous circulation after 1 cycle of CPR. 04/05/17: Patient remains intubated sedated. Improved neuro exam now following commands when sedation lightened. Remains anuric received hemodialysis yesterday with 1 L removed. FiO2 requirement remains high at 65% with chest x- ray showing bilateral pulmonary edema. PEEP increased to 10, Plan for repeat hemodialysis today. Receiving 1 unit PRBC for hemoglobin of 6.9. Tachycardia resolved. Lactic acid is improved but still elevated at 2.9. Platelet count decreased to 78 most likely DIC. BUN/creatinine 29/3.73 Objective Vital Signs Date Time Temp Pulse Resp B/P (MAP) Pulse Ox O2 Delivery O2 Flow Rate FiO2 04/05/17 09:09 97 60 04/05/17 06:45 98.4 64 16 125/55 04/04/17 02:38 Ventilator Intake and Output 04/05/17 04/05/17 04/06/17 08:00 16:00 00:00 Intake Total 500 ml 300 ml Output Total 25 ml Balance 475 ml 300 ml Result Diagram: 04/05/17 0500 04/05/17 0500 Other Results Laboratory Tests Test 04/04/17 17:34 Blood Gas Puncture Site ART LINE Blood Gas Patient Temperature 98.6 Blood Gas HCO3 27 mmol/L (22-26) Blood Gas Base Excess 3.8 mmol/L (-2-2) Blood Gas Oxygen Saturation 95 % (90-100) Arterial Blood pH 7.51 (7.380-7.420) Arterial Blood Partial Pressure CO2 34 mmHg (38-42) Arterial Blood Partial Pressure O2 104 mmHg (61-120) Arterial Blood Oxygen Content 9.9 Vol % (12.0-20.0) Arterial Blood Carboxyhemoglobin 1.2 % (0-4) Arterial Blood Methemoglobin 1.7 % (0-2) Blood Gas Hemoglobin 7.2 G/DL (12.0-16.0) Oxygen Delivery Device VENTILATOR Blood Gas Ventilator Setting Blood Gas Inspired Oxygen 85 % Imaging Last 24 hours Impressions Chest X-Ray 04/04/17 0000 Signed Impressions: Service Date/Time: Tuesday, April 04, 2017 01:47 - CONCLUSION: 1. Right internal jugular central line position. 2. Bilateral areas of consolidation being worse on the right. Jan Mccord MD Chest X-Ray 04/03/17 2357 Signed Impressions: Service Date/Time: Tuesday, April 04, 2017 00:05 - CONCLUSION: 1. Status post sternotomy. 2. Diffuse consolidations being worse on the right likely related to edema/CHF. 3. Cardiomegaly. 4. ET tube and NG tube in good position. Jan Mccord MD Objective Remarks GENERAL: Elderly appearing man sedated and intubated. Wakes up easily follows commands SKIN: Warm and dry. HEAD: Normocephalic. EYES: No scleral icterus. No injection or drainage. NECK: Supple, trachea midline. No JVD or lymphadenopathy. CARDIOVASCULAR: Regular rate and rhythm without murmurs, gallops, or rubs. RESPIRATORY: Breath sounds equal bilaterally. Bilateral scattered crackles, few wheezes GASTROINTESTINAL: Abdomen soft, non-tender, nondistended. Colostomy in place MUSCULOSKELETAL: No cyanosis, or edema. NEURO EXAM:The patient is sedated and intubated, off sedation. Pupils are round , reactive to light. Follows commands in all 4 extremities Urinary Catheter: Yes Assessment to: Continue A/P Assessment and Plan Neuro: - Patient has no evidence of anoxic brain injury at this time - Daily sedation vacation once hypoxia improves Resp: Acute hypoxemic respiratory failure Pulmonary edema - Intubated for airway protection, and cardiac arrest, now hypoxemic - Underlying pulmonary edema - Continue mechanical ventilation, increase PEEP to 10 to attempt to reduce FiO2 - No weaning until hemodynamically stable, hypoxia improved - Vent bundle - DuoNeb's when necessary and scheduled CVS PEA Cardiac arrest CABG x2 (03/01/2017 at [facility]) with BERG to LAD, SVG to OM1. Shock resolved Pulmonary edema - PEA arrest most likely secondary to hypoxia and hyperkalemia no evidence of ACS - Wean to DC temporary pacing, 2-D echo pending. Cardiology Dr. Blair following - Continue aspirin - EKG and troponin x3 negative - Fluid removal with HD, s/p 1L fluid removed 04/04, repeat hemodialysis today GI: Transaminitis Shock liver - Nothing by mouth, Protonix 40 mg IV every 12 - Transaminitis secondary to shock HEME: Anemia requiring transfusion - Transfuse 1 U PRBCs - Monitor H&H - Protonix IV twice a day - check occult blood : ESRD Severe metabolic acidosis - Discontinue Sodium bicarbonate drip - s/p IV fluids resuscitation - Nephrology following and HD per nephrology ID: Probable sepsis/septic shock - Empiric broad-spectrum antibiotic with Zosyn until cultures come back negative - Single dose of vancomycin given DVT GI prophylaxis - Teds SCDs - No pharmacological DVT prophylaxis due to severe anemia - Protonix IV twice a day Critical Care: The total critical care time was 45 minutes. Time to perform other separately billable procedures was not included in the critical care time. Patient remains critically ill with multiorgan failure. His shock has improved but remains severely hypoxemic with significant pulmonary edema and ongoing sepsis. Jose Martin Montoya MD Apr 05, 2017 09:49
[2017-04-05 16:19] LABS: HEMATOCRIT 25.1 % (39.0-51.0)
[2017-04-05 16:22] LABS: REVIEW FLAG FINAL
--- NOTE | 2017-04-05 17:29 | ECHRPT ---
Indication: cad CONCLUSIONS The left ventricular systolic function is [id number] reduced with an estimated ejection fra ction in the range of 35-40%. Normal left ventricular size. A possible atrial level shunt is demonstrated by color flow Doppler interrogation, clinical correlat ion recommended. Mild mitral valve regurgitation. There is mild tricuspid valve regurgitation. Structurally normal tricuspid valve The pulmonary valve is not well visualized. BP: / HR: Rhythm: MEASUREMENTS (Male / Female) Normal Values Technical Quality:Good 2D ECHO LV Diastolic Diameter PLAX 4.8 cm 4.2 - 5.9 / 3.9 - 5.3 cm LV Systolic Diameter PLAX 4.1 cm IVS Diastolic Thickness 1.1 cm 0.6 - 1.0 / 0.6 - 0.9 cm LVPW Diastolic Thickness 0.9 cm 0.6 - 1.0 / 0.6 - 0.9 cm LV Relative Wall Thickness 0.4 RV Internal Dim ED PLAX 3.4 cm M-MODE Aortic Root Diameter MM 3.6 cm LA Systolic Diameter MM 3.5 cm LA Ao Ratio MM 1.0 AV Cusp Separation MM 2.4 cm DOPPLER Mitral E Point Velocity 111.0 cm/s Mitral A Point Velocity 65.2 cm/s Mitral E to A Ratio 1.7 LV E' Lateral Velocity 6.3 cm/s Mitral E to LV E' Lateral Ratio 17.5 LV E' Septal Velocity 6.4 cm/s Mitral E to LV E' Septal Ratio 17.3 FINDINGS LEFT VENTRICLE The left ventricular systolic function is [id number] reduced with an estimated ejection fra ction in the range of 35-40%. Normal left ventricular size. RIGHT VENTRICLE Normal right ventricular size and systolic function. LEFT ATRIUM The left atrial size is normal. RIGHT ATRIUM The right atrial size is normal. ATRIAL SEPTUM A possible atrial level shunt is demonstrated by color flow Doppler interrogation, clinical correlat ion recommended. AORTA The aortic root and proximal ascending aorta are normal in size on limited imaging. MITRAL VALVE Mild mitral valve regurgitation. Structurally normal mitral valve. AORTIC VALVE Trileaflet aortic valve. No aortic valve stenosis or regurgitation. TRICUSPID VALVE There is mild tricuspid valve regurgitation. Structurally normal tricuspid valve PULMONARY VALVE The pulmonary valve is not well visualized. VESSELS The inferior vena cava is normal in size. PERICARDIUM No pericardial effusion. Anthony Nj MD (Electronically Signed) Final Date:05 April 2017 17:27
--- NOTE | 2017-04-05 18:50 | HHI.NPPN ---
Subjective History of Present Illness 56-year-old male with a history of end-stage renal disease, diabetes mellitus, hypertension and relatively recent CABG also has a history at times noncompliance with dialysis. Patient apparently missed his dialysis session yesterday sequently presenting to this institution with increasing shortness of breath noted to have evidence of bradycardia subsequently having a PEA requiring multiple episodes of CPR. There was significant leukocytosis on presentation blood count of 26.9, and elevated lactic acid level of 9 and a chest x-ray revealing bilateral consolidation right greater than left. Should be noted that the patient is not usually a significant fluid stef between dialysis sessions. Unfortunately patient was unable to provide any history of time of consultation as he is sedated on the ventilator. Interval History Remains intubated and sedated. Review of Systems General General Remarks Unobtainable Objective Data Data 04/05/17 04/06/17 19:00 07:00 Intake Total 1738.1 ml Output Total 3000 ml Balance -1261.9 ml Intake IV Total 1318.1 ml Packed Cells 400 ml Blood Product IV Normal Saline Flush 20 ml Hemodialysis 3000 ml Vital Signs Date Time Temp Pulse Resp B/P (MAP) Pulse Ox O2 Delivery O2 Flow Rate FiO2 04/05/17 18:00 77 140/62 (88) 144/66 (92) 04/05/17 18:00 77 04/05/17 18:00 100.1 77 16 140/62 (88) 93 144/66 (92) 04/05/17 17:00 99.9 74 16 144/67 (92) 96 148/66 (93) 04/05/17 16:30 99.7 72 16 138/67 (90) 98 150/67 (94) 04/05/17 16:14 96 60 04/05/17 16:00 72 04/05/17 16:00 60 04/05/17 16:00 98.5 72 16 138/64 (88) 97 148/67 (94) 04/05/17 15:30 98.9 72 16 146/68 (94) 96 146/64 (91) 04/05/17 15:00 99.8 72 16 138/67 (90) 97 145/64 (91) 04/05/17 14:00 99.5 72 16 132/63 (86) 94 136/57 (83) 04/05/17 14:00 72 04/05/17 13:30 99.1 72 16 132/63 (86) 93 135/57 (83) 04/05/17 13:00 99.0 71 16 132/64 (86) 92 135/57 (83) 04/05/17 12:48 93 60 04/05/17 12:30 98.8 71 11 145/68 (93) 96 141/60 (87) 04/05/17 12:00 65 04/05/17 12:00 98.7 65 16 136/66 (89) 100 140/57 (84) 04/05/17 12:00 60 04/05/17 11:00 98.7 63 16 130/65 (86) 100 138/57 (84) 04/05/17 10:30 98.5 63 6 129/63 (85) 99 133/56 (81) 04/05/17 10:00 63 04/05/17 10:00 98.5 63 16 135/66 (89) 99 136/57 (83) 04/05/17 09:30 98.5 62 16 125/65 (85) 98 131/57 (81) 04/05/17 09:09 97 60 04/05/17 09:00 98.5 61 0 117/63 (81) 95 123/56 (78) 04/05/17 08:30 98.5 64 3 131/64 (86) 94 129/58 (81) 04/05/17 08:00 65 04/05/17 08:00 98.5 64 16 118/63 (81) 98 124/57 (79) 04/05/17 08:00 64 04/05/17 07:30 98.4 101 16 124/63 (83) 94 130/57 (81) 04/05/17 07:00 98.4 92 16 119/61 (80) 94 125/55 (78) 04/05/17 06:45 98.4 64 16 125/55 94 04/05/17 06:30 98.4 102 16 120/61 95 04/05/17 06:00 98.4 103 16 114/59 (77) 94 120/54 (76) 04/05/17 06:00 103 04/05/17 06:00 103 114/59 (77) 120/54 (76) 04/05/17 05:00 98.2 64 16 114/60 (78) 91 123/59 (80) 04/05/17 04:05 93 65 04/05/17 04:00 98.1 65 16 125/65 (85) 93 136/66 (89) 04/05/17 04:00 65 04/05/17 04:00 65 04/05/17 03:00 98.0 64 16 124/64 (84) 95 134/74 (94) 04/05/17 02:00 64 04/05/17 02:00 98.1 64 10 126/64 (84) 94 103/83 (90) 04/05/17 01:00 98.1 64 16 123/64 (83) 94 100/80 (87) 04/05/17 00:07 98 65 04/05/17 00:00 98.1 64 10 123/63 (83) 98 102/79 (87) 04/05/17 00:00 64 04/05/17 00:00 65 04/04/17 23:00 98.0 70 22 115/62 (79) 89 102/76 (85) 04/04/17 22:00 98.4 66 16 119/60 (79) 96 131/62 (85) 04/04/17 22:00 66 04/04/17 21:05 96 75 04/04/17 21:00 98.4 65 15 117/61 (79) 98 131/63 (85) 04/04/17 20:00 66 04/04/17 20:00 98.2 66 16 118/60 (79) 97 130/62 (84) 04/04/17 20:00 75 04/04/17 19:00 98.2 66 28 118/58 (78) 98 129/63 (85) -: 04/05/17 1315 04/05/17 0500 Imaging Last Impressions Chest X-Ray 04/05/17 0000 Signed Impressions: Service Date/Time: March 04:29 - CONCLUSION: Diffuse pulmonary consolidation and mild enlargement of the heart likely related to CHF. The appearance is unchanged. Jan Mccord MD Medication Review Current Medications Medications (Trade) Dose Ordered Sig/Hallie Route Start Time Stop Time Status Last Admin (NS Flush) 2 ml UNSCH PRN IVF 04/04/17 00:00 (Brethine Inj) 1 mg UNSCH PRN SQ 04/04/17 00:15 Propofol 100 ml @ 2.25 mls/hr TITRATE PRN IV 04/04/17 00:15 (Brethine Inj) 1 mg UNSCH PRN SQ 04/04/17 02:30 (NS Flush) 2 ml UNSCH PRN IV FLUSH 04/04/17 02:30 (NS Flush) 2 ml BID IV FLUSH 04/04/17 09:00 04/05/17 08:03 (Tylenol) 650 mg Q6H PRN PO 04/04/17 02:30 (Morphine Inj) 2 mg Q2H PRN IV PUSH 04/04/17 02:30 (Protonix Inj) 40 mg Q12H IV PUSH 04/04/17 06:00 04/05/17 17:54 (Ativan Inj) 1 mg Q1H PRN IV PUSH 04/04/17 02:30 (Zofran Inj) 4 mg Q6H PRN IV PUSH 04/04/17 02:30 (Duoneb Neb) 1 ampule Q6HR NEB INH 04/04/17 04:00 04/05/17 16:12 (Duoneb Neb) 1 ampule Q2HR NEB PRN INH 04/04/17 02:30 Miscellaneous Information 1 Q361D XX 04/04/17 02:30 04/04/17 03:00 (Chlorhexidine 2% Cloth) 3 pack Taper DAILY@04 TOP 04/04/17 04:00 03/31/18 03:59 04/05/17 04:00 (Chlorhexidine 2% Cloth) 3 pack UNSCH PRN TOP 04/04/17 02:30 (Kanwal-Colace) 1 tab BID PO 04/04/17 09:00 04/05/17 08:03 (Milk Of Magnesia Liq) 30 ml Q12H PRN PO 04/04/17 02:30 (Senokot) 17.2 mg Q12H PRN PO 04/04/17 02:30 (Dulcolax Supp) 10 mg DAILY PRN RECTAL 04/04/17 02:30 (Lactulose Liq) 30 ml DAILY PRN PO 04/04/17 02:30 (Peridex 0.12% Liq) 15 ml BID@08,20 MT 04/04/17 08:00 04/05/17 08:05 Fentanyl Citrate 250 ml @ 5 mls/hr TITRATE PRN IV 04/04/17 02:30 04/04/17 07:03 Albumin Human 500 ml @ 250 mls/hr Q6H IV 04/04/17 03:00 04/05/17 15:48 Piperacillin Sod/ Tazobactam Sod 50 ml @ 200 mls/hr Q6H IV 04/04/17 04:00 04/05/17 15:48 Pharmacy Profile Note 0 ml @ 0 mls/hr UNSCH OTHER 04/04/17 02:45 Sodium Chloride 1,000 ml @ 0 mls/hr Q0M PRN OTHER 04/04/17 11:36 Sodium Chloride 1,000 ml @ 200 mls/hr Q5H PRN IV 04/04/17 11:36 Sodium Chloride 1,000 ml @ 0 mls/hr Q0M PRN OTHER 04/04/17 11:36 (Mannitol Inj) 12.5 gm UNSCH PRN IV 04/04/17 11:45 Albumin Human 100 ml @ 60 mls/hr UNSCH PRN IV 04/04/17 11:45 04/04/17 13:53 (NS Flush) 5 ml UNSCH PRN IV FLUSH 04/04/17 11:45 (Heparin Inj) UNSCH PRN .XX 04/04/17 11:45 (Gentamicin (Dialysis) Inj) 20 mg UNSCH PRN OTHER 04/04/17 11:45 (Zofran Inj) 4 mg UNSCH PRN IV PUSH 04/04/17 11:45 (Tylenol) 650 mg UNSCH PRN PO 04/04/17 11:45 (Benadryl) 25 mg UNSCH PRN PO 04/04/17 11:45 (Nitrostat Sl) 0.4 mg UNSCH PRN SL 04/04/17 11:45 (Catapres) 0.1 mg UNSCH PRN PO 04/04/17 11:45 (Gelfoam 12 Mm/7 Mm Top) 1 foam UNSCH PRN TOP 04/04/17 11:45 04/04/17 16:19 (Epogen Inj) 10,000 units MoWeFr SQ 04/04/17 20:00 04/04/17 20:51 (Aspirin Chew) 81 mg DAILY CHEW 04/05/17 09:00 04/05/17 08:03 Physical Exam General Appearance: No Acute Distress, Comfortable Pulmonary Resp Exam: Clear Bilaterally, Diminished Breath Sounds Cardiology CV Exam: Regular, Normal Sinus Rhythm Gastrointestinal/Abdomen GI Exam: Soft, Non-Tender Extremeties Extremities Exam: Moderate Edema, Pitting Edema Extremeties Remarks significant edema extremities Neurologic Neuro Exam: Sedated Assessment/Plan Problem List: (1) ESRD (end stage renal disease) on dialysis ICD Codes: N18.6 - End stage renal disease; Z99.2 - Dependence on renal dialysis Status: Chronic Plan: s/p HD today. May need HD again 04/06 depending upon volume status Bicarb drip stopped today. We will continue to follow. Medications to be adjusted for ESRD. Avoid gadolinium. (2) Hyperkalemia ICD Codes: E87.5 - Hyperkalemia Status: Acute Plan: Was most likely related to patient missing dialysis as well as metabolic acidosis. Resolved with dialysis (3) Sepsis due to pneumonia ICD Codes: J18.9 - Pneumonia, unspecified organism; A41.9 - Sepsis, unspecified organism Plan: Appears to be clinically present. There may have been a component of some fluid retention related patient missing dialysis but I believe the primary consideration here would be pneumonia as far as chest x-ray findings are concerned. Defer antibiotic therapy to critical care. (4) Shock liver ICD Codes: K72.00 - Acute and subacute hepatic failure without coma Plan: Defer management to critical care. (5) Cardiac arrest with pulseless electrical activity ICD Codes: I46.9 - Cardiac arrest, cause unspecified Status: Acute (6) HTN (hypertension) ICD Codes: I10 - Hypertension Status: Chronic (7) Anemia of renal disease ICD Codes: D63.1 - Anemia in chronic kidney disease Status: Chronic Plan: Epogen as ordered with follow-up of hemoglobin. Eugenie Britton Apr 05, 2017 18:50
--- NOTE | 2017-04-05 21:41 | PD.CARD.PN ---
Subjective Subjective Remarks No events overnight Hgb drop again Transcutaneous pacing pads removed, heart rate stable Objective Medications Current Medications Medications (Trade) Dose Ordered Sig/Hallie Route Start Time Stop Time Status Last Admin (NS Flush) 2 ml UNSCH PRN IVF 04/04/17 00:00 (Brethine Inj) 1 mg UNSCH PRN SQ 04/04/17 00:15 Propofol 100 ml @ 2.25 mls/hr TITRATE PRN IV 04/04/17 00:15 (Brethine Inj) 1 mg UNSCH PRN SQ 04/04/17 02:30 (NS Flush) 2 ml UNSCH PRN IV FLUSH 04/04/17 02:30 (NS Flush) 2 ml BID IV FLUSH 04/04/17 09:00 04/05/17 20:51 (Tylenol) 650 mg Q6H PRN PO 04/04/17 02:30 (Morphine Inj) 2 mg Q2H PRN IV PUSH 04/04/17 02:30 (Protonix Inj) 40 mg Q12H IV PUSH 04/04/17 06:00 04/05/17 17:54 (Ativan Inj) 1 mg Q1H PRN IV PUSH 04/04/17 02:30 (Zofran Inj) 4 mg Q6H PRN IV PUSH 04/04/17 02:30 (Duoneb Neb) 1 ampule Q6HR NEB INH 04/04/17 04:00 04/05/17 19:59 (Duoneb Neb) 1 ampule Q2HR NEB PRN INH 04/04/17 02:30 Miscellaneous Information 1 Q361D XX 04/04/17 02:30 04/04/17 03:00 (Chlorhexidine 2% Cloth) 3 pack Taper DAILY@04 TOP 04/04/17 04:00 03/31/18 03:59 04/05/17 04:00 (Chlorhexidine 2% Cloth) 3 pack UNSCH PRN TOP 04/04/17 02:30 (Kanwal-Colace) 1 tab BID PO 04/04/17 09:00 04/05/17 20:52 (Milk Of Magnesia Liq) 30 ml Q12H PRN PO 04/04/17 02:30 (Senokot) 17.2 mg Q12H PRN PO 04/04/17 02:30 (Dulcolax Supp) 10 mg DAILY PRN RECTAL 04/04/17 02:30 (Lactulose Liq) 30 ml DAILY PRN PO 04/04/17 02:30 (Peridex 0.12% Liq) 15 ml BID@08,20 MT 04/04/17 08:00 04/05/17 20:51 Fentanyl Citrate 250 ml @ 5 mls/hr TITRATE PRN IV 04/04/17 02:30 04/04/17 07:03 Albumin Human 500 ml @ 250 mls/hr Q6H IV 04/04/17 03:00 04/05/17 20:51 Piperacillin Sod/ Tazobactam Sod 50 ml @ 200 mls/hr Q6H IV 04/04/17 04:00 04/05/17 20:52 Pharmacy Profile Note 0 ml @ 0 mls/hr UNSCH OTHER 04/04/17 02:45 Sodium Chloride 1,000 ml @ 0 mls/hr Q0M PRN OTHER 04/04/17 11:36 Sodium Chloride 1,000 ml @ 200 mls/hr Q5H PRN IV 04/04/17 11:36 Sodium Chloride 1,000 ml @ 0 mls/hr Q0M PRN OTHER 04/04/17 11:36 (Mannitol Inj) 12.5 gm UNSCH PRN IV 04/04/17 11:45 Albumin Human 100 ml @ 60 mls/hr UNSCH PRN IV 04/04/17 11:45 04/04/17 13:53 (NS Flush) 5 ml UNSCH PRN IV FLUSH 04/04/17 11:45 (Heparin Inj) UNSCH PRN .XX 04/04/17 11:45 (Gentamicin (Dialysis) Inj) 20 mg UNSCH PRN OTHER 04/04/17 11:45 (Zofran Inj) 4 mg UNSCH PRN IV PUSH 04/04/17 11:45 (Tylenol) 650 mg UNSCH PRN PO 04/04/17 11:45 (Benadryl) 25 mg UNSCH PRN PO 04/04/17 11:45 (Nitrostat Sl) 0.4 mg UNSCH PRN SL 04/04/17 11:45 (Catapres) 0.1 mg UNSCH PRN PO 04/04/17 11:45 (Gelfoam 12 Mm/7 Mm Top) 1 foam UNSCH PRN TOP 04/04/17 11:45 04/04/17 16:19 (Epogen Inj) 10,000 units MoWeFr SQ 04/04/17 20:00 04/04/17 20:51 (Aspirin Chew) 81 mg DAILY CHEW 04/05/17 09:00 04/05/17 08:03 Vital Signs / I&O Vital Signs Date Time Temp Pulse Resp B/P (MAP) Pulse Ox O2 Delivery O2 Flow Rate FiO2 04/05/17 21:00 99.9 81 18 138/71 (93) 95 146/68 (94) 04/05/17 20:00 96 60 04/05/17 20:00 100.0 72 16 137/65 (89) 96 142/65 (90) 04/05/17 19:00 100.0 74 16 135/65 (88) 95 145/66 (92) 04/05/17 18:00 77 140/62 (88) 144/66 (92) 04/05/17 18:00 77 04/05/17 18:00 100.1 77 16 140/62 (88) 93 144/66 (92) 04/05/17 17:00 99.9 74 16 144/67 (92) 96 148/66 (93) 04/05/17 16:30 99.7 72 16 138/67 (90) 98 150/67 (94) 04/05/17 16:14 96 60 04/05/17 16:00 72 04/05/17 16:00 60 04/05/17 16:00 98.5 72 16 138/64 (88) 97 148/67 (94) 04/05/17 15:30 98.9 72 16 146/68 (94) 96 146/64 (91) 04/05/17 15:00 99.8 72 16 138/67 (90) 97 145/64 (91) 04/05/17 14:00 99.5 72 16 132/63 (86) 94 136/57 (83) 04/05/17 14:00 72 04/05/17 13:30 99.1 72 16 132/63 (86) 93 135/57 (83) 04/05/17 13:00 99.0 71 16 132/64 (86) 92 135/57 (83) 04/05/17 12:48 93 60 11/30/17 12:30 98.8 71 11 145/68 (93) 96 141/60 (87) 04/05/17 12:00 65 04/05/17 12:00 98.7 65 16 136/66 (89) 100 140/57 (84) 04/05/17 12:00 60 04/05/17 11:00 98.7 63 16 130/65 (86) 100 138/57 (84) 04/05/17 10:30 98.5 63 6 129/63 (85) 99 133/56 (81) 04/05/17 10:00 63 04/05/17 10:00 98.5 63 16 135/66 (89) 99 136/57 (83) 04/05/17 09:30 98.5 62 16 125/65 (85) 98 131/57 (81) 04/05/17 09:09 97 60 04/05/17 09:00 98.5 61 0 117/63 (81) 95 123/56 (78) 04/05/17 08:30 98.5 64 3 131/64 (86) 94 129/58 (81) 04/05/17 08:00 65 04/05/17 08:00 98.5 64 16 118/63 (81) 98 124/57 (79) 04/05/17 08:00 64 04/05/17 07:30 98.4 101 16 124/63 (83) 94 130/57 (81) 04/05/17 07:00 98.4 92 16 119/61 (80) 94 125/55 (78) 04/05/17 06:45 98.4 64 16 125/55 94 04/05/17 06:30 98.4 102 16 120/61 95 04/05/17 06:00 98.4 103 16 114/59 (77) 94 120/54 (76) 04/05/17 06:00 103 04/05/17 06:00 103 114/59 (77) 120/54 (76) 04/05/17 05:00 98.2 64 16 114/60 (78) 91 123/59 (80) 04/05/17 04:05 93 65 04/05/17 04:00 98.1 65 16 125/65 (85) 93 136/66 (89) 04/05/17 04:00 65 04/05/17 04:00 65 04/05/17 03:00 98.0 64 16 124/64 (84) 95 134/74 (94) 04/05/17 02:00 64 04/05/17 02:00 98.1 64 10 126/64 (84) 94 103/83 (90) 04/05/17 01:00 98.1 64 16 123/64 (83) 94 100/80 (87) 04/05/17 00:07 98 65 04/05/17 00:00 98.1 64 10 123/63 (83) 98 102/79 (87) 04/05/17 00:00 64 04/05/17 00:00 65 04/04/17 23:00 98.0 70 22 115/62 (79) 89 102/76 (85) 04/04/17 22:00 98.4 66 16 119/60 (79) 96 131/62 (85) 04/04/17 22:00 66 I/O 04/04/17 04/04/17 04/04/17 04/05/17 04/05/17 04/05/17 07:00 15:00 23:00 07:00 15:00 23:00 Intake Total 1168 ml 4725 ml 3458.6 ml 550 ml 1688.1 ml 670 ml Output Total 20 ml 1036 ml 25 ml 3000 ml 40 ml Balance 1148 ml 4725 ml 2422.6 ml 525 ml -1311.9 ml 630 ml Intake IV Total 1158 ml 3695 ml 3136.6 ml 550 ml 1268.1 ml 670 ml Packed Cells 400 ml FFP 940 ml 282 ml Blood Product IV Normal Saline Flush 10 ml 90 ml 40 ml 20 ml Output Urine Total 20 ml 36 ml 25 ml 40 ml Hemodialysis 1000 ml 3000 ml Physical Exam GENERAL: Intubated and sedated SKIN: Warm and dry. HEAD: Atraumatic. Normocephalic. EYES: Pupils equal and round. No scleral icterus. No injection or drainage. ENT: No nasal bleeding or discharge. Mucous membranes pink and moist. NECK: Trachea midline. No JVD. CARDIOVASCULAR: Regular rate and rhythm. RESPIRATORY: No accessory muscle use. Clear to auscultation. Breath sounds equal bilaterally. GASTROINTESTINAL: Abdomen soft, non-tender, nondistended. Hepatic and splenic margins not palpable. MUSCULOSKELETAL: Extremities without clubbing, cyanosis, or edema. No obvious deformities. NEUROLOGICAL: Intubated and sedated Laboratory Laboratory Tests Test 04/05/17 05:00 04/05/17 13:15 White Blood Count 8.5 TH/MM3 Red Blood Count 2.45 MIL/MM3 Hemoglobin 6.9 GM/DL 8.4 GM/DL Hematocrit 20.9 % 25.1 % Mean Corpuscular Volume 85.3 FL Mean Corpuscular Hemoglobin 28.2 PG Mean Corpuscular Hemoglobin Concent 33.1 % Red Cell Distribution Width 17.1 % Platelet Count 78 TH/MM3 Mean Platelet Volume 9.5 FL Neutrophils (%) (Auto) 92.0 % Lymphocytes (%) (Auto) 5.4 % Monocytes (%) (Auto) 2.4 % Eosinophils (%) (Auto) 0.1 % Basophils (%) (Auto) 0.1 % Neutrophils # (Auto) 7.8 TH/MM3 Lymphocytes # (Auto) 0.5 TH/MM3 Monocytes # (Auto) 0.2 TH/MM3 Eosinophils # (Auto) 0.0 TH/MM3 Basophils # (Auto) 0.0 TH/MM3 CBC Comment AUTO DIFF Differential Comment AUTO DIFF CONFIRMED Platelet Estimate LOW Platelet Morphology Comment ENLARGED Prothrombin Time 21.4 SEC Prothromb Time International Ratio 1.9 RATIO Blood Urea Nitrogen 29 MG/DL Creatinine 3.73 MG/DL Random Glucose 126 MG/DL Total Protein 5.6 GM/DL Albumin 3.1 GM/DL Calcium Level 6.9 MG/DL Phosphorus Level 3.0 MG/DL Magnesium Level 1.4 MG/DL Alkaline Phosphatase 137 U/L Aspartate Amino Transf (AST/SGOT) 3039 U/L Alanine Aminotransferase (ALT/SGPT) 1717 U/L Total Bilirubin 1.1 MG/DL Sodium Level 139 MEQ/L Potassium Level 3.5 MEQ/L Chloride Level 96 MEQ/L Carbon Dioxide Level 32.7 MEQ/L Anion Gap 10 MEQ/L Estimat Glomerular Filtration Rate 17 ML/MIN Lactic Acid Level 2.9 mmol/L Protein Corrected Calcium 7.7 MG/DL Imaging Last 24 hours Impressions Chest X-Ray 04/05/17 0000 Signed Impressions: Service Date/Time: March 04:29 - CONCLUSION: Diffuse pulmonary consolidation and mild enlargement of the heart likely related to CHF. The appearance is unchanged. Jan Mccord MD Assessment and Plan Problem List: (1) Hx of CABG ICD Codes: Z95.1 - Presence of aortocoronary bypass graft (2) Cardiac arrest with pulseless electrical activity ICD Codes: I46.9 - Cardiac arrest, cause unspecified Status: Acute (3) Symptomatic bradycardia ICD Codes: R00.1 - Bradycardia, unspecified Status: Acute (4) Hyperkalemia ICD Codes: E87.5 - Hyperkalemia Status: Acute (5) Shock liver ICD Codes: K72.00 - Acute and subacute hepatic failure without coma (6) ESRD (end stage renal disease) on dialysis ICD Codes: N18.6 - End stage renal disease; Z99.2 - Dependence on renal dialysis Status: Chronic (7) Anemia of renal disease ICD Codes: D63.1 - Anemia in chronic kidney disease Status: Chronic (8) Sepsis due to pneumonia ICD Codes: J18.9 - Pneumonia, unspecified organism; A41.9 - Sepsis, unspecified organism (9) HTN (hypertension) ICD Codes: I10 - Hypertension Status: Chronic Assessment and Plan 1) PEA arrest Possible hypoxic with anemia 2) CABGx2 Trops negative, most likely non-cardiac arrest Con't ASA if possible 3) EF 35-40%, mild MR/TR Possible due to shock, will need to eventually recheck 4) Shock liver 5) Anemia Unsure of cause 6) ESRD on HD 7) Symptomatic bradycardia resolved Jhonathan Blair DO Apr 05, 2017 21:41
[2017-04-05] MEDS: fentaNYL DRIP 250 ML IV PRN (23:48)
[2017-04-06] VITALS (36 sets, daily range): BP systolic 137–162; BP diastolic 60–76; PULSE 72–83; RESP 13–23; TEMP 99.4–99.9; O2SAT 84–98
[2017-04-06] MEDS: ALBUMIN 5% INJ 500 ML IV SCH ×3 (02:18→16:07)
--- NOTE | 2017-04-06 03:45 | RADRPT ---
EXAM DATE/TIME: 04/06/2017 02:45 [place] COMPARISON: CHEST SINGLE AP, April 04, 2017, 1:47. CHEST SINGLE AP, April 05, 2017, 4:29. INDICATIONS : Evaluate for pneumonia- Respiratory failure MEDICAL HISTORY : Hypertension. Congestive heart failure. Diabetes mellitus type II. SURGICAL HISTORY : CABG. ENCOUNTER: Subsequent ACUITY: 3 days PAIN SCORE: Non-responsive. LOCATION: Bilateral chest FINDINGS: Portable AP view of the chest demonstrates a normal-sized cardiac silhouette in this patient post med tung sternotomy. ETT and nasogastric tube remain present. Right IJ line tip is in the SVC. Lungs are u nderinflated and there is severe bilateral airspace consolidation most severe in the right midlung zo ne. No pneumothorax or pleural effusion is appreciated. CONCLUSION: Diffuse severe bilateral airspace consolidation, increased from the prior study. Jan Temple MD on April 06, 2017 at 3:42 Board Certified Radiologist. This report was verified electronically.
[2017-04-06] MEDS: CHLORHEXIDINE GLUCONATE 2 % 1 PACK (2 CLOTHS) TOP SCH (04:00)
[2017-04-06] MEDS: PIPERACIL-TAZO 2.25 GM PREMIX 50 ML IV SCH ×4 (04:47→20:29)
[2017-04-06] MEDS: RESP: ALBUTEROL 2.5 MG/IPRATROPIUM 0.5 MG NEB (SCH) INH ×4 (04:51→20:34)
[2017-04-06] MEDS: PANTOPRAZOLE SODIUM 40 MG VIAL IV PUSH SCH ×2 (05:10→16:07)
[2017-04-06 05:47] LABS: AUTOMATED NEUTROPHIL # 7.7 TH/MM3 (1.8-7.7); BASOPHIL % 0.1 % (0.0-2.0); EOSINOPHIL % 0.2 % (0.0-4.0); HEMATOCRIT 24.4 % (39.0-51.0); LYMPH % 4.6 % (9.0-44.0); LYMPHOCYTE # 0.4 TH/MM3 (1.0-4.8); MEAN CELL VOLUME 86.2 FL (80.0-100.0); MEAN CORPUSCULAR HEMOGLOBIN 28.7 PG (27.0-34.0); MEAN CORPUSCULAR HGB CONC 33.2 % (32.0-36.0); MONO % 4.4 % (0.0-8.0); NEUT % 90.7 % (16.0-70.0); PLATELET COUNT 60 TH/MM3 (150-450); RED BLOOD COUNT 2.83 MIL/MM3 (4.50-5.90); RED CELL DISTRIBUTION WIDTH 16.7 % (11.6-17.2); WHITE BLOOD COUNT 8.5 TH/MM3 (4.0-11.0)
[2017-04-06 05:53] LABS: HEMO FLAGS AUTO DIFF
[2017-04-06 06:07] LABS: ANION GAP 8 MEQ/L (5-15); BICARBONATE 33.3 MEQ/L (21.0-32.0); BLOOD UREA NITROGEN 19 MG/DL (7-18); CHLORIDE 97 MEQ/L (98-107); POTASSIUM 3.6 MEQ/L (3.5-5.1); SODIUM (NA) 138 MEQ/L (136-145)
[2017-04-06 06:15] LABS: ALKALINE PHOSPHATASE 129 U/L (45-117); ALT (GPT) 1154 U/L (12-78); AST (GOT) 993 U/L (15-37); TOTAL BILIRUBIN ADULT 1.7 MG/DL (0.2-1.0)
[2017-04-06] MEDS: ASPIRIN 81 MG CHEW TAB CHEW SCH (08:43)
[2017-04-06] MEDS: CHLORHEXIDINE 0.12% (ORAL KIT) 15 ML CUP MT SCH ×2 (08:43→20:28)
[2017-04-06] MEDS: DOCUSATE SODIUM 50 MG/SENNA 8.6 MG TAB PO SCH ×2 (08:43→20:28)
[2017-04-06] MEDS: SODIUM CHLORIDE 0.9% FLUSH 10 ML FLUSH IV FLUSH SCH ×2 (08:44→20:28)
[2017-04-06 09:18] LABS: BANDS 1 % (0-6); CORRECTED NUCLEATED RBC 2 /100 WBC (0-0); NEUTROPHIL # MANUAL DIFF 7.5 TH/MM3 (1.8-7.7); PLATELET ESTIMATE SMEAR LOW (NORMAL); PLATELET MORPHOLOGY ENLARGED (NORMAL); POLYS (SEG NEUTROPHILS) 87 % (16-70); SCAN/DIFF FINAL DIFF MANUAL; WBC DIFF SAMPLE 100
[2017-04-06] MEDS: fentaNYL DRIP 250 ML IV PRN ×2 (12:27→23:53)
--- NOTE | 2017-04-06 13:07 | PD.CARD.PN ---
Subjective Subjective Remarks No events overnight Heart rates stable Objective Medications Current Medications Medications (Trade) Dose Ordered Sig/Hallie Route Start Time Stop Time Status Last Admin (NS Flush) 2 ml UNSCH PRN IVF 04/04/17 00:00 (Brethine Inj) 1 mg UNSCH PRN SQ 04/04/17 00:15 Propofol 100 ml @ 2.25 mls/hr TITRATE PRN IV 04/04/17 00:15 (Brethine Inj) 1 mg UNSCH PRN SQ 04/04/17 02:30 (NS Flush) 2 ml UNSCH PRN IV FLUSH 04/04/17 02:30 (NS Flush) 2 ml BID IV FLUSH 04/04/17 09:00 04/06/17 08:44 (Tylenol) 650 mg Q6H PRN PO 04/04/17 02:30 (Morphine Inj) 2 mg Q2H PRN IV PUSH 04/04/17 02:30 (Protonix Inj) 40 mg Q12H IV PUSH 04/04/17 06:00 04/06/17 05:10 (Ativan Inj) 1 mg Q1H PRN IV PUSH 04/04/17 02:30 (Zofran Inj) 4 mg Q6H PRN IV PUSH 04/04/17 02:30 (Duoneb Neb) 1 ampule Q6HR NEB INH 04/04/17 04:00 04/06/17 10:28 (Duoneb Neb) 1 ampule Q2HR NEB PRN INH 04/04/17 02:30 Miscellaneous Information 1 Q361D XX 04/04/17 02:30 04/04/17 03:00 (Chlorhexidine 2% Cloth) 3 pack Taper DAILY@04 TOP 04/04/17 04:00 03/31/18 03:59 04/06/17 04:00 (Chlorhexidine 2% Cloth) 3 pack UNSCH PRN TOP 04/04/17 02:30 (Kanwal-Colace) 1 tab BID PO 04/04/17 09:00 04/06/17 08:43 (Milk Of Magnesia Liq) 30 ml Q12H PRN PO 04/04/17 02:30 (Senokot) 17.2 mg Q12H PRN PO 04/04/17 02:30 (Dulcolax Supp) 10 mg DAILY PRN RECTAL 04/04/17 02:30 (Lactulose Liq) 30 ml DAILY PRN PO 04/04/17 02:30 (Peridex 0.12% Liq) 15 ml BID@08,20 MT 04/04/17 08:00 04/06/17 08:43 Fentanyl Citrate 250 ml @ 5 mls/hr TITRATE PRN IV 04/04/17 02:30 04/06/17 12:27 Albumin Human 500 ml @ 250 mls/hr Q6H IV 04/04/17 03:00 04/06/17 08:42 Piperacillin Sod/ Tazobactam Sod 50 ml @ 200 mls/hr Q6H IV 04/04/17 04:00 04/06/17 08:42 Pharmacy Profile Note 0 ml @ 0 mls/hr UNSCH OTHER 04/04/17 02:45 Sodium Chloride 1,000 ml @ 0 mls/hr Q0M PRN OTHER 04/04/17 11:36 Sodium Chloride 1,000 ml @ 200 mls/hr Q5H PRN IV 04/04/17 11:36 Sodium Chloride 1,000 ml @ 0 mls/hr Q0M PRN OTHER 04/04/17 11:36 (Mannitol Inj) 12.5 gm UNSCH PRN IV 04/04/17 11:45 Albumin Human 100 ml @ 60 mls/hr UNSCH PRN IV 04/04/17 11:45 04/04/17 13:53 (NS Flush) 5 ml UNSCH PRN IV FLUSH 04/04/17 11:45 (Heparin Inj) UNSCH PRN .XX 04/04/17 11:45 (Gentamicin (Dialysis) Inj) 20 mg UNSCH PRN OTHER 04/04/17 11:45 (Zofran Inj) 4 mg UNSCH PRN IV PUSH 04/04/17 11:45 (Tylenol) 650 mg UNSCH PRN PO 04/04/17 11:45 (Benadryl) 25 mg UNSCH PRN PO 04/04/17 11:45 (Nitrostat Sl) 0.4 mg UNSCH PRN SL 04/04/17 11:45 (Catapres) 0.1 mg UNSCH PRN PO 04/04/17 11:45 (Gelfoam 12 Mm/7 Mm Top) 1 foam UNSCH PRN TOP 04/04/17 11:45 04/04/17 16:19 (Epogen Inj) 10,000 units MoWeFr SQ 04/04/17 20:00 04/04/17 20:51 (Aspirin Chew) 81 mg DAILY CHEW 04/05/17 09:00 04/06/17 08:43 Vancomycin HCl 1000 mg/Sodium Chloride 250 ml @ 250 mls/hr WITH DIALYSIS ONCE IV 04/06/17 17:00 04/06/17 17:59 Vital Signs / I&O Vital Signs Date Time Temp Pulse Resp B/P (MAP) Pulse Ox O2 Delivery O2 Flow Rate FiO2 04/06/17 12:16 95 80 04/06/17 10:28 93 80 04/06/17 09:00 100.0 79 14 140/76 (97) 93 144/64 (90) 04/06/17 09:00 70 04/06/17 08:30 99.9 74 19 139/70 (93) 94 143/61 (88) 04/06/17 08:00 60 04/06/17 08:00 99.4 75 23 141/71 (94) 91 145/62 (89) 04/06/17 06:00 75 137/67 (90) 143/60 (87) 04/06/17 06:00 75 04/06/17 04:51 94 60 04/06/17 04:00 60 04/06/17 04:00 72 04/06/17 04:00 99.5 72 16 138/66 (90) 95 140/60 (86) 04/06/17 02:00 72 04/06/17 00:00 77 04/06/17 00:00 60 04/06/17 00:00 99.9 77 13 140/68 (92) 95 149/70 (96) 04/05/17 23:57 96 60 04/05/17 22:00 77 04/05/17 21:00 99.9 81 18 138/71 (93) 95 146/68 (94) 04/05/17 20:00 60 04/05/17 20:00 96 60 04/05/17 20:00 100.0 72 16 137/65 (89) 96 142/65 (90) 04/05/17 20:00 72 04/05/17 19:00 100.0 74 16 135/65 (88) 95 145/66 (92) 04/05/17 18:00 77 140/62 (88) 144/66 (92) 04/05/17 18:00 77 04/05/17 18:00 100.1 77 16 140/62 (88) 93 144/66 (92) 04/05/17 17:00 99.9 74 16 144/67 (92) 96 148/66 (93) 04/05/17 16:30 99.7 72 16 138/67 (90) 98 150/67 (94) 04/05/17 16:14 96 60 04/05/17 16:00 72 04/05/17 16:00 60 04/05/17 16:00 98.5 72 16 138/64 (88) 97 148/67 (94) 04/05/17 15:30 98.9 72 16 146/68 (94) 96 146/64 (91) 04/05/17 15:00 99.8 72 16 138/67 (90) 97 145/64 (91) 04/05/17 14:00 99.5 72 16 132/63 (86) 94 136/57 (83) 04/05/17 14:00 72 04/05/17 13:30 99.1 72 16 132/63 (86) 93 135/57 (83) I/O 04/05/17 04/05/17 04/05/17 04/06/17 04/06/17 04/06/17 06:59 14:59 22:59 06:59 14:59 22:59 Intake Total 550 ml 1688.1 ml 1220 ml 800 ml 800 ml Output Total 25 ml 3000 ml 40 ml 45 ml Balance 525 ml -1311.9 ml 1180 ml 755 ml 800 ml Intake IV Total 550 ml 1268.1 ml 1220 ml 800 ml 800 ml Packed Cells 400 ml Blood Product IV Normal Saline Flush 20 ml Output Urine Total 25 ml 40 ml 25 ml Stool Total 20 ml Hemodialysis 3000 ml Physical Exam GENERAL: Intubated and sedated SKIN: Warm and dry. HEAD: Atraumatic. Normocephalic. EYES: Pupils equal and round. No scleral icterus. No injection or drainage. ENT: No nasal bleeding or discharge. Mucous membranes pink and moist. NECK: Trachea midline. No JVD. CARDIOVASCULAR: Regular rate and rhythm. RESPIRATORY: No accessory muscle use. Clear to auscultation. Breath sounds equal bilaterally. GASTROINTESTINAL: Abdomen soft, non-tender, nondistended. Hepatic and splenic margins not palpable. MUSCULOSKELETAL: Extremities without clubbing, cyanosis, or edema. No obvious deformities. NEUROLOGICAL: Intubated and sedated Laboratory Laboratory Tests Test 04/05/17 13:15 04/06/17 04:25 Hemoglobin 8.4 GM/DL 8.1 GM/DL Hematocrit 25.1 % 24.4 % White Blood Count 8.5 TH/MM3 Red Blood Count 2.83 MIL/MM3 Mean Corpuscular Volume 86.2 FL Mean Corpuscular Hemoglobin 28.7 PG Mean Corpuscular Hemoglobin Concent 33.2 % Red Cell Distribution Width 16.7 % Platelet Count 60 TH/MM3 Mean Platelet Volume 10.8 FL Neutrophils (%) (Auto) 90.7 % Lymphocytes (%) (Auto) 4.6 % Monocytes (%) (Auto) 4.4 % Eosinophils (%) (Auto) 0.2 % Basophils (%) (Auto) 0.1 % Neutrophils # (Auto) 7.7 TH/MM3 Lymphocytes # (Auto) 0.4 TH/MM3 Monocytes # (Auto) 0.4 TH/MM3 Eosinophils # (Auto) 0.0 TH/MM3 Basophils # (Auto) 0.0 TH/MM3 CBC Comment AUTO DIFF Differential Total Cells Counted 100 Neutrophils % (Manual) 87 % Band Neutrophils % 1 % Lymphocytes % 8 % Monocytes % 4 % Neutrophils # (Manual) 7.5 TH/MM3 Nucleated Red Blood Cells 2 /100 WBC Differential Comment FINAL DIFF MANUAL Platelet Estimate LOW Platelet Morphology Comment ENLARGED Blood Urea Nitrogen 19 MG/DL Creatinine 3.00 MG/DL Random Glucose 75 MG/DL Total Protein 6.2 GM/DL Albumin 3.5 GM/DL Calcium Level 7.6 MG/DL Alkaline Phosphatase 129 U/L Aspartate Amino Transf (AST/SGOT) 993 U/L Alanine Aminotransferase (ALT/SGPT) 1154 U/L Total Bilirubin 1.7 MG/DL Sodium Level 138 MEQ/L Potassium Level 3.6 MEQ/L Chloride Level 97 MEQ/L Carbon Dioxide Level 33.3 MEQ/L Anion Gap 8 MEQ/L Random Vancomycin Level 17.1 COMMENT Imaging Last 24 hours Impressions Chest X-Ray 04/06/17 0600 Signed Impressions: Service Date/Time: Thursday, April 06, 2017 02:45 - CONCLUSION: Diffuse severe bilateral airspace consolidation, increased from the prior study. Jan Temple MD Assessment and Plan Problem List: (1) Hx of CABG ICD Codes: Z95.1 - Presence of aortocoronary bypass graft (2) Cardiac arrest with pulseless electrical activity ICD Codes: I46.9 - Cardiac arrest, cause unspecified Status: Acute (3) Symptomatic bradycardia ICD Codes: R00.1 - Bradycardia, unspecified Status: Acute (4) Hyperkalemia ICD Codes: E87.5 - Hyperkalemia Status: Acute (5) Shock liver ICD Codes: K72.00 - Acute and subacute hepatic failure without coma (6) ESRD (end stage renal disease) on dialysis ICD Codes: N18.6 - End stage renal disease; Z99.2 - Dependence on renal dialysis Status: Chronic (7) Anemia of renal disease ICD Codes: D63.1 - Anemia in chronic kidney disease Status: Chronic (8) Sepsis due to pneumonia ICD Codes: J18.9 - Pneumonia, unspecified organism; A41.9 - Sepsis, unspecified organism (9) HTN (hypertension) ICD Codes: I10 - Hypertension Status: Chronic Assessment and Plan 1) PEA arrest Possible hypoxic with anemia 2) CABGx2 Trops negative, most likely non-cardiac arrest Con't ASA if possible 3) EF 35-40%, mild MR/TR Possible due to shock, will need to eventually recheck 4) Shock liver 5) Anemia Unsure of cause 6) ESRD on HD 7) Symptomatic bradycardia resolved 8) Will plan to see on Sunday, if concerns over the weekend please call covering physician Jhonathan Blair DO Apr 06, 2017 13:07
--- NOTE | 2017-04-06 14:55 | HHI.CCPN ---
Subjective Remarks/Hospital Course 56-year-old male presents via EMS after the patient was coded in the field by the paramedics and had return of spontaneous circulation. According to EMS they received a call for shortness of breath and when they arrived the patient's symptoms progressed. They stated that the patient started of bradycardia down, eventually went into PEA with a bradycardic rhythm. They administered CPR for approximately one and a half minutes and gave the patient 1 mg of epinephrine. They then had return of spontaneous circulation with a bradycardic rhythm in the 30s. They then started pacing the patient in the field and intubated him in the field with a 7.5 endotracheal tube. Prior to arrival EMS states that the patient regained consciousness and was able to follow commands. Upon arrival the patient is intubated. He suffered another PEA arrest in the emergency department, again with the return of spontaneous circulation after 1 cycle of CPR. 04/05/17: Patient remains intubated sedated. Improved neuro exam now following commands when sedation lightened. Remains anuric received hemodialysis yesterday with 1 L removed. FiO2 requirement remains high at 65% with chest x- ray showing bilateral pulmonary edema. PEEP increased to 10, Plan for repeat hemodialysis today. Receiving 1 unit PRBC for hemoglobin of 6.9. Tachycardia resolved. Lactic acid is improved but still elevated at 2.9. Platelet count decreased to 78 most likely DIC. BUN/creatinine 29/3.73 Subjective 04/06: Resting comfortable in bed. Eyes open to command. Currently afebrile. Currently on fentanyl drip at 200 g an hour. Urine output is minimal. Status post hemodialysis yesterday last 3 L Objective Vital Signs Date Time Temp Pulse Resp B/P (MAP) Pulse Ox O2 Delivery O2 Flow Rate FiO2 04/06/17 12:16 95 80 04/06/17 09:00 100.0 79 14 140/76 (97) 144/64 (90) 04/04/17 02:38 Ventilator Intake and Output 04/06/17 04/06/17 04/07/17 08:00 16:00 00:00 Intake Total 550 ml 800 ml Output Total 45 ml Balance 505 ml 800 ml Result Diagram: 04/06/17 0425 04/06/17 0425 Other Results Microbiology Date/Time Source Procedure Growth Status 04/04/17 03:57 Blood Peripheral Aerobic Blood Culture - Preliminary NO GROWTH IN 2 DAYS Resulted 04/04/17 03:57 Blood Peripheral Anaerobic Blood Culture - Preliminary NO GROWTH IN 2 DAYS Resulted 04/04/17 03:25 Sputum Endotracheal Gram Stain - Final Complete 04/04/17 03:25 Sputum Endotracheal Sputum Culture - Final HEAVY GROWTH NORMAL RESPIRATORY NATALIE Complete 04/04/17 18:40 Urine Catheterized Urine Urine Culture - Final NO GROWTH IN 48 HOURS. Complete Imaging Last Impressions Chest X-Ray 04/06/17 0600 Signed Impressions: Service Date/Time: Thursday, April 06, 2017 02:45 - CONCLUSION: Diffuse severe bilateral airspace consolidation, increased from the prior study. Jan Temple MD Objective Remarks GENERAL 48-year-old male, critically ill currently orotracheally intubated. SKIN: Warm and dry. No rash HEAD: Normocephalic. EYES: No scleral icterus. No injection or drainage. NECK: Supple, trachea midline. No JVD or lymphadenopathy. CARDIOVASCULAR: Regular rate and rhythm. S1, S2 no S4. Without murmurs, gallops, or rubs. RESPIRATORY: Breath sounds equal bilaterally. Bilateral scattered crackles, few wheezes GASTROINTESTINAL: Abdomen soft, non-tender, nondistended. Colostomy in place in right lower quadrant MUSCULOSKELETAL: No significant peripheral NEURO EXAM:The patient is sedated and intubated, off sedation. Pupils are round , reactive to light. 3 mm. Follows commands in all 4 extremities Vascular Central Line Catheter: Yes Assessment to: Continue Line: Central Venous Catheter Side: Right Location: Internal, Jugular A/P Assessment and Plan Neuro/Psych: History of peripheral neuropathy Patient is currently on a fentanyl drip at 200 mics grams an hour for sedation/ analgesia while intubated Goal of RASS -2 Daily sedation vacation once hypoxia improves - Patient has no evidence of anoxic brain injury at this time Holding pregabalin 75 mg twice a day Resp: Acute hypoxemic respiratory failure Pulmonary edema - Intubated for airway protection, and cardiac arrest, now hypoxemic - Underlying pulmonary edema - Continue mechanical ventilation currently on PRBC 16/500/1.2/8/80 Ventilator bundle Albuterol/ipratropium aerosols every 6 hours and albuterol aerosols every 2 hours. Dyspnea - No weaning until hemodynamically stable, hypoxia improved Follow-up chest x-ray in a.m. CVS PEA Cardiac arrest CABG x2 (03/01/2017 at [facility]) with BERG to LAD, SVG to OM1. Coronary artery disease - left circumflex 80%, OM1 90%, LAD 80%, RCA 100% with collaterals Peripheral arterial disease Shock resolved Pulmonary edema - PEA arrest most likely secondary to hypoxia and hyperkalemia no evidence of ACS Temporary pacing discontinued -Echocardiogram EF 35-40%. Questionable left atrial shunt. Mild MR/TR Cardiology Dr. Blair following - Continue aspirin 81 mg daily - EKG and troponin x3 negative - Fluid removal with HD, s/p 1L fluid removed 04/04, repeat hemodialysis 06/05 Home medications metoprolol 50 mg twice a day, enalapril 10 mg daily and amlodipine 10 mg daily. GI: Transaminitis Shock liver History of colostomy - Nothing by mouth, start Neutra hep trickle feeds 20 cc daily Pantoprazole 40 mg IV every 12 Docusate sodium/senna liquid twice a day and senna liquid twice a day I'll regimen - Transaminitis secondary to shock HEME: Normocytic Anemia requiring transfusion Thrombocytopenia - Transfuse 1 U PRBCs - Monitor H&H - Protonix IV twice a day - check occult blood /FEN/renal: ESRD Severe metabolic acidosis Hypo-magnesium - Nephrology following Dr. Kennedy and HD per nephrology A.m. ROGE/Aixa Payne. Replace as clinically indicated ID: Probable sepsis/septic shock - Empiric broad-spectrum antibiotic with piperacillin/tazobactam until cultures come back negative - Single dose of vancomycin given Blood cultures 2, sputum and urine 04/04 no growth to date DVT GI prophylaxis - Teds SCDs - No pharmacological DVT prophylaxis due to severe anemia -Pantoprazole IV twice a day Level II follow-up Jack Wiley MD Apr 06, 2017 14:55
[2017-04-06] MEDS ORDERED: NITROGLYCERIN 2% OINT 1 GM PACKET TOPICAL PRN (15:00)
[2017-04-06] MEDS ORDERED: amLODIPine BESYLATE 5 MG TAB PO ONE (15:00)
[2017-04-06] MEDS: BENEPROTEIN POWDER 1 PACK G-TUBE SCH (16:08)
[2017-04-06] MEDS ORDERED: VANCOMYCIN 1,000 MG/NS 250 ML IV ONE ×2 (17:00)
--- NOTE | 2017-04-06 17:05 | HHI.NPPN ---
Subjective History of Present Illness 56-year-old male with a history of end-stage renal disease, diabetes mellitus, hypertension and relatively recent CABG also has a history at times noncompliance with dialysis. Patient apparently missed his dialysis session yesterday sequently presenting to this institution with increasing shortness of breath noted to have evidence of bradycardia subsequently having a PEA requiring multiple episodes of CPR. There was significant leukocytosis on presentation blood count of 26.9, and elevated lactic acid level of 9 and a chest x-ray revealing bilateral consolidation right greater than left. Should be noted that the patient is not usually a significant fluid stef between dialysis sessions. Unfortunately patient was unable to provide any history of time of consultation as he is sedated on the ventilator. Interval History The patient is still intubated. Review of Systems General General Remarks Unobtainable Objective Data Data 04/06/17 04/07/17 19:00 07:00 Intake Total 800 ml Balance 800 ml Intake IV Total 800 ml Vital Signs Date Time Temp Pulse Resp B/P (MAP) Pulse Ox O2 Delivery O2 Flow Rate FiO2 04/06/17 15:20 94 70 04/06/17 12:16 95 80 04/06/17 10:28 93 80 04/06/17 09:00 100.0 79 14 140/76 (97) 93 144/64 (90) 04/06/17 09:00 70 04/06/17 08:30 99.9 74 19 139/70 (93) 94 143/61 (88) 04/06/17 08:00 60 04/06/17 08:00 99.4 75 23 141/71 (94) 91 145/62 (89) 04/06/17 06:00 75 137/67 (90) 143/60 (87) 04/06/17 06:00 75 04/06/17 04:51 94 60 04/06/17 04:00 60 04/06/17 04:00 72 04/06/17 04:00 99.5 72 16 138/66 (90) 95 140/60 (86) 04/06/17 02:00 72 04/06/17 00:00 77 04/06/17 00:00 60 04/06/17 00:00 99.9 77 13 140/68 (92) 95 149/70 (96) 04/05/17 23:57 96 60 04/05/17 22:00 77 04/05/17 21:00 99.9 81 18 138/71 (93) 95 146/68 (94) 04/05/17 20:00 60 04/05/17 20:00 96 60 04/05/17 20:00 100.0 72 16 137/65 (89) 96 142/65 (90) 04/05/17 20:00 72 04/05/17 19:00 100.0 74 16 135/65 (88) 95 145/66 (92) 04/05/17 18:00 77 140/62 (88) 144/66 (92) 04/05/17 18:00 77 04/05/17 18:00 100.1 77 16 140/62 (88) 93 144/66 (92) -: 04/06/175 04/06/17424 Physical Exam General Appearance: No Acute Distress, Comfortable Pulmonary Resp Exam: Clear Bilaterally, Diminished Breath Sounds Cardiology CV Exam: Regular, Normal Sinus Rhythm Gastrointestinal/Abdomen GI Exam: Soft, Non-Tender Extremeties Extremities Exam: Moderate Edema, Pitting Edema Neurologic Neuro Exam: Sedated Assessment/Plan Problem List: (1) ESRD (end stage renal disease) on dialysis ICD Codes: N18.6 - End stage renal disease; Z99.2 - Dependence on renal dialysis Status: Chronic Plan: There is evidence of significant fluid retention. Will need increased ultrafiltration tomorrow as ordered. Recommend discontinuance of IV albumin. Blood pressure improved. Medications to be adjusted for ESRD. Avoid gadolinium. (2) Hyperkalemia ICD Codes: E87.5 - Hyperkalemia Status: Resolved Plan: Was most likely related to patient missing dialysis as well as metabolic acidosis. Resolved with dialysis (3) Sepsis due to pneumonia ICD Codes: J18.9 - Pneumonia, unspecified organism; A41.9 - Sepsis, unspecified organism Plan: Appears to be clinically present. There may have been a component of some fluid retention related patient missing dialysis but I believe the primary consideration here would be pneumonia as far as chest x-ray findings are concerned. Defer antibiotic therapy to critical care. (4) Shock liver ICD Codes: K72.00 - Acute and subacute hepatic failure without coma Plan: Improving. (5) Cardiac arrest with pulseless electrical activity ICD Codes: I46.9 - Cardiac arrest, cause unspecified Status: Acute (6) HTN (hypertension) ICD Codes: I10 - Hypertension Status: Chronic (7) Anemia of renal disease ICD Codes: D63.1 - Anemia in chronic kidney disease Status: Chronic Plan: Epogen as ordered with follow-up of hemoglobin. David Kennedy MD Apr 06, 2017 17:05
[2017-04-06] MEDS: SENNOSIDES SYRUP 8.8 MG/5 ML CUP PO SCH (20:28)
[2017-04-06] MEDS: EPOETIN ALFA 10,000 UNITS/ML VIAL SQ SCH (20:28)
[2017-04-06] MEDS: DOCUSATE SODIUM 100 MG/10 ML UDC PO SCH (20:28)
[2017-04-07] VITALS (24 sets, daily range): BP systolic 130–155; BP diastolic 70–86; PULSE 75–116; RESP 16; TEMP 98.4–100.2; O2SAT 94–100
[2017-04-07] MEDS: PIPERACIL-TAZO 2.25 GM PREMIX 50 ML IV SCH ×4 (03:10→22:45)
[2017-04-07] MEDS: CHLORHEXIDINE GLUCONATE 2 % 1 PACK (2 CLOTHS) TOP SCH (03:10)
--- NOTE | 2017-04-07 03:14 | RADRPT ---
EXAM DATE/TIME: 04/07/2017 02:37 [facility] COMPARISON: CHEST SINGLE AP, April 06, 2017, 2:45. INDICATIONS : Shortness of breath, possible pulmonary disease. MEDICAL HISTORY : Hypertension. Congestive heart failure. Diabetes mellitus type II. SURGICAL HISTORY : CABG. ENCOUNTER: Subsequent ACUITY: 4 - 6 days PAIN SCORE: Non-responsive. LOCATION: Bilateral chest FINDINGS: Portable AP view of the chest demonstrates a normal-sized cardiac silhouette in this patient post med tung sternotomy. ETT, nasogastric tube, and right IJ line remain present. Multiple lines overlie the p atient. There is severe diffuse bilateral airspace consolidation, right greater than left. No pneumot horax or definite pleural effusion is seen. CONCLUSION: Severe diffuse bilateral airspace consolidation similar to the prior study. No significant change is appreciated. Jan Temple MD on April 07, 2017 at 3:12 Board Certified Radiologist. This report was verified electronically.
[2017-04-07] MEDS: RESP: ALBUTEROL 2.5 MG/IPRATROPIUM 0.5 MG NEB (SCH) INH ×4 (04:05→20:20)
[2017-04-07] MEDS: PANTOPRAZOLE SODIUM 40 MG VIAL IV PUSH SCH ×2 (04:47→16:42)
[2017-04-07 05:55] LABS: BLOOD GAS BASE EXCESS 5.7 mmol/L (-2-2); BLOOD GAS CARBOXYHEMOGLOBIN 1.4 % (0-4); BLOOD GAS HCO3 30 mmol/L (22-26); BLOOD GAS METHEMOGLOBIN 1.5 % (0-2); BLOOD GAS O2 HGB SATURATION 87 % (90-100); BLOOD GAS OXYGEN CONTENT 11.4 Vol % (12.0-20.0); BLOOD GAS PCO2 46 mmHg (38-42); BLOOD GAS PO2 57 mmHg (61-120); BLOOD GAS TOTAL HGB 9.3 G/DL (12.0-16.0); TEMP CORR TO 98.6
[2017-04-07 05:58] LABS: CRITICAL VALUE YES; OXYGEN DEVICE VENTILATOR
[2017-04-07 06:00] LABS: DRAW SITE RT BRACHIAL; FIO2 70 %; NUMBER OF ARTERIAL PUNCTURES 1; STAT NO; ULNAR PULSE PRESENT; VENT SETTINGS PRVC/AC
[2017-04-07 06:25] LABS: AUTOMATED NEUTROPHIL # 8.1 TH/MM3 (1.8-7.7); BASOPHIL % 0.4 % (0.0-2.0); EOSINOPHIL % 0.3 % (0.0-4.0); HEMATOCRIT 27.2 % (39.0-51.0); LYMPH % 4.8 % (9.0-44.0); LYMPHOCYTE # 0.4 TH/MM3 (1.0-4.8); MEAN CELL VOLUME 86.8 FL (80.0-100.0); MEAN CORPUSCULAR HEMOGLOBIN 28.6 PG (27.0-34.0); MONO % 5.3 % (0.0-8.0); NEUT % 89.2 % (16.0-70.0); PLATELET COUNT 47 TH/MM3 (150-450); RED BLOOD COUNT 3.13 MIL/MM3 (4.50-5.90); RED CELL DISTRIBUTION WIDTH 16.8 % (11.6-17.2)
[2017-04-07 06:29] LABS: HEMO FLAGS AUTO DIFF
[2017-04-07 06:44] LABS: ALKALINE PHOSPHATASE 113 U/L (45-117); ALT (GPT) 731 U/L (12-78); ANION GAP 11 MEQ/L (5-15); AST (GOT) 258 U/L (15-37); BICARBONATE 31.3 MEQ/L (21.0-32.0); BLOOD UREA NITROGEN 28 MG/DL (7-18); CHLORIDE 98 MEQ/L (98-107); GLOMERULAR FILTRATION RATE 15 ML/MIN (>89); MAGNESIUM 1.6 MG/DL (1.5-2.5); POTASSIUM 3.6 MEQ/L (3.5-5.1); SODIUM (NA) 140 MEQ/L (136-145); TOTAL BILIRUBIN ADULT 2.7 MG/DL (0.2-1.0)
[2017-04-07 08:34] LABS: CORRECTED NUCLEATED RBC 2 /100 WBC (0-0); EOSINOPHILS 3 % (0-4); NEUTROPHIL # MANUAL DIFF 7.9 TH/MM3 (1.8-7.7); POLYS (SEG NEUTROPHILS) 88 % (16-70); WBC DIFF SAMPLE 100
[2017-04-07 08:35] LABS: PLATELET ESTIMATE SMEAR LOW (NORMAL); PLATELET MORPHOLOGY NORMAL (NORMAL); SCAN/DIFF FINAL DIFF MANUAL
[2017-04-07] MEDS: DOCUSATE SODIUM 50 MG/SENNA 8.6 MG TAB PO SCH (09:00)
[2017-04-07] MEDS: BENEPROTEIN POWDER 1 PACK G-TUBE SCH ×3 (09:00→17:05)
[2017-04-07] MEDS: ASPIRIN 81 MG CHEW TAB CHEW SCH (10:31)
[2017-04-07] MEDS: DOCUSATE SODIUM 100 MG/10 ML UDC PO SCH ×2 (10:31→20:46)
[2017-04-07] MEDS: SENNOSIDES SYRUP 8.8 MG/5 ML CUP PO SCH ×2 (10:31→20:46)
[2017-04-07] MEDS: amLODIPine BESYLATE 5 MG TAB PO SCH (10:31)
[2017-04-07] MEDS: SODIUM CHLORIDE 0.9% FLUSH 10 ML FLUSH IV FLUSH SCH ×2 (10:32→20:47)
[2017-04-07] MEDS: CHLORHEXIDINE 0.12% (ORAL KIT) 15 ML CUP MT SCH ×2 (10:32→20:45)
[2017-04-07] MEDS ORDERED: POTASSIUM CHLORIDE 20 MEQ PWD PACKET NG ONE (12:15)
[2017-04-07] MEDS ORDERED: MAGNESIUM SULFATE 1 GM PREMIX 100 ML IV ONE (12:15)
[2017-04-07] MEDS ORDERED: METHYLNALTREXONE BROMIDE 12 MG/0.6 ML VIAL SQ ONE (12:15)
[2017-04-07] MEDS ORDERED: LACTULOSE SYRUP 20 GM/30 ML CUP PO ONE (12:15)
[2017-04-07] MEDS ORDERED: MINERAL OIL LIQUID 30 ML CUP PO ONE (12:15)
--- NOTE | 2017-04-07 12:23 | HHI.CCPN ---
Subjective Remarks/Hospital Course 56-year-old male presents via EMS after the patient was coded in the field by the paramedics and had return of spontaneous circulation. According to EMS they received a call for shortness of breath and when they arrived the patient's symptoms progressed. They stated that the patient started of bradycardia down, eventually went into PEA with a bradycardic rhythm. They administered CPR for approximately one and a half minutes and gave the patient 1 mg of epinephrine. They then had return of spontaneous circulation with a bradycardic rhythm in the 30s. They then started pacing the patient in the field and intubated him in the field with a 7.5 endotracheal tube. Prior to arrival EMS states that the patient regained consciousness and was able to follow commands. Upon arrival the patient is intubated. He suffered another PEA arrest in the emergency department, again with the return of spontaneous circulation after 1 cycle of CPR. 04/05/17: Patient remains intubated sedated. Improved neuro exam now following commands when sedation lightened. Remains anuric received hemodialysis yesterday with 1 L removed. FiO2 requirement remains high at 65% with chest x- ray showing bilateral pulmonary edema. PEEP increased to 10, Plan for repeat hemodialysis today. Receiving 1 unit PRBC for hemoglobin of 6.9. Tachycardia resolved. Lactic acid is improved but still elevated at 2.9. Platelet count decreased to 78 most likely DIC. BUN/creatinine 29/3.73 04/06: Resting comfortable in bed. Eyes open to command. Currently afebrile. Currently on fentanyl drip at 200 g an hour. Urine output is minimal. Status post hemodialysis yesterday last 3 L Subjective 04/07: Tmax 100.2. Currently 99.8. Increased tube feed residuals overnight. Check KUB. Bowel regimen increased. Arousable on fentanyl drip. Will transition back to propofol given 1 dose of methylnaloxone today Objective Vital Signs Date Time Temp Pulse Resp B/P (MAP) Pulse Ox O2 Delivery O2 Flow Rate FiO2 04/07/17 11: 98 60 04/07/17 06:00 113 04/07/17 04:00 99.8 16 149/74 (99) 04/04/17 02:38 Ventilator Intake and Output 04/07/17 04/07/17 04/08/17 08:00 16:00 00:00 Intake Total 131 ml Output Total 15 ml Balance 116 ml Result Diagram: 04/07/17 0327 04/07/17 0327 Other Results Last Impressions Chest X-Ray 04/07/17 0600 Signed Impressions: Service Date/Time: Friday, April 07, 2017 02:37 - CONCLUSION: Severe diffuse bilateral airspace consolidation similar to the prior study. No significant change is appreciated. Jan Temple MD Imaging Last Impressions Chest X-Ray 04/06/17 0600 Signed Impressions: Service Date/Time: Thursday, April 06, 2017 02:45 - CONCLUSION: Diffuse severe bilateral airspace consolidation, increased from the prior study. Jan Temple MD Objective Remarks GENERAL 48-year-old male, critically ill currently orotracheally intubated. SKIN: Warm and dry. No rash HEAD: Normocephalic. EYES: No scleral icterus. No injection or drainage. NECK: Supple, trachea midline. No JVD or lymphadenopathy. CARDIOVASCULAR: Regular rate and rhythm. S1, S2 no S4. Without murmurs, gallops, or rubs. RESPIRATORY: Breath sounds equal bilaterally. Bilateral scattered crackles, few wheezes GASTROINTESTINAL: Abdomen soft, non-tender, nondistended. Colostomy in place in right lower quadrant MUSCULOSKELETAL: No significant peripheral NEURO EXAM:The patient is sedated and intubated, off sedation. Pupils are round , reactive to light. 3 mm. Follows commands in all 4 extremities Vascular Central Line Catheter: Yes Assessment to: Continue Line: Central Venous Catheter Side: Right Location: Internal, Jugular A/P Assessment and Plan Neuro/Psych: History of peripheral neuropathy Patient is currently on a fentanyl drip at 200 mics grams an hour for sedation/ analgesia while intubated. Propofol also ordered Goal of RASS -2 Daily sedation vacation once hypoxia improves - Patient has no evidence of anoxic brain injury at this time Holding pregabalin 75 mg twice a day Resp: Acute hypoxemic respiratory failure Pulmonary edema - Intubated for airway protection, and cardiac arrest, now hypoxemic - Underlying pulmonary edema - Continue mechanical ventilation currently on PRBC 16/500/1.2/8/60 Ventilator bundle Albuterol/ipratropium aerosols every 6 hours and albuterol aerosols every 2 hours. Dyspnea - No weaning until hemodynamically stable, hypoxia improved Follow-up chest x-ray in a.m. 04/08 CVS PEA Cardiac arrest CABG x2 (03/01/2017 at [facility]) with EBRG to LAD, SVG to OM1. Coronary artery disease - left circumflex 80%, OM1 90%, LAD 80%, RCA 100% with collaterals Peripheral arterial disease Shock resolved Pulmonary edema - PEA arrest most likely secondary to hypoxia and hyperkalemia no evidence of ACS Temporary pacing discontinued -Echocardiogram EF 35-40%. Questionable left atrial shunt. Mild MR/TR Cardiology Dr. Blair following - Continue aspirin 81 mg daily - EKG and troponin x3 negative - Fluid removal with HD, s/p 1L fluid removed 04/04, repeat hemodialysis per nephrology Home medications metoprolol 50 mg twice a day, enalapril 10 mg daily and amlodipine 10 mg daily. GI: Transaminitis Shock liver History of colostomy Elevated total bilirubin Continue Neutra hep trickle feeds 20 cc daily Pantoprazole 40 mg IV every 12 Docusate sodium/senna liquid twice a day and senna liquid twice a day along with polyethylene glycol twice a day and lactulose daily - Transaminitis secondary to shock improving 1 dose of methylnaltrexone 1 today Check ammonia level and hepatic profile in a.m. HEME: Normocytic Anemia requiring transfusion Thrombocytopenia - Transfuse 1 U PRBCs during this hospitalization - Monitor H&H /FEN/renal: ESRD Hypo-magnesium - Nephrology following Dr. Kennedy and HD per nephrology A.m. renal panel. Receiving 20 mEq KCl and 1 g mag sulfate 1 today. Replace as clinically indicated ID: Probable sepsis/septic shock - Empiric broad-spectrum antibiotic with piperacillin/tazobactam until cultures come back negative - Single dose of vancomycin given Blood cultures 2, sputum and urine 04/04 no growth to date ENDO: Sliding-scale insulin low regimen to maintain euglycemia every 6 hours DVT GI prophylaxis - Teds SCDs - No pharmacological DVT prophylaxis due to severe anemia -Pantoprazole IV twice a day Access - right IJ CVL placed 04/04 by ED physician Level II follow-up Jack Wiley MD Apr 07, 2017 12:23
[2017-04-07] MEDS ORDERED: SODIUM CHLOR 0.9% 1000 ML INJ 1,000 ML IV SCH (12:30)
[2017-04-07] MEDS ORDERED: GLUCAGON 1 MG/ML VIAL OTHER PRN (12:30)
[2017-04-07] MEDS ORDERED: DEXTROSE 50% IN WATER 50 ML VIAL(D50) IV PUSH PRN (12:30)
[2017-04-07] MEDS: PROPOFOL 1000 MG/100 ML INJ 100 ML IV PRN (13:00)
[2017-04-07] MEDS: GELATIN 12 MM/7 MM FOAM TOP PRN (13:20)
--- NOTE | 2017-04-07 14:16 | RADRPT ---
EXAM DATE/TIME: 04/07/2017 13:03 [facility] COMPARISON: ABDOMEN KUB ONLY, July 08, 2015, 10:23. INDICATIONS : Increased tube feed residuals. MEDICAL HISTORY : Hypertension. Congestive heart failure. Diabetes mellitus type II. Renal failure. Perforated colo n. SURGICAL HISTORY : Colostomy. Colon resection. CABG. ENCOUNTER: Subsequent ACUITY: 1 week PAIN SCORE: 0/10 LOCATION: abdomen FINDINGS: There is a gastrostomy catheter in place. Interval placement nasogastric catheter. There is a paucity of bowel gas without dilated loops of bowel are. No gross free air or pneumatosis. Diffuse patchy ai rspace disease in the lung bases bilaterally. The remainder of the exam is unchanged. CONCLUSION: 1. Gastrostomy catheter and nasogastric catheter are in place. 2. Nonobstructive bowel gas pattern. Justin Smith MD on April 07, 2017 at 14:12 Board Certified Radiologist. This report was verified electronically.
--- NOTE | 2017-04-07 14:52 | HHI.NPPN ---
Subjective History of Present Illness 56-year-old male with a history of end-stage renal disease, diabetes mellitus, hypertension and relatively recent CABG also has a history at times noncompliance with dialysis. Patient apparently missed his dialysis session yesterday sequently presenting to this institution with increasing shortness of breath noted to have evidence of bradycardia subsequently having a PEA requiring multiple episodes of CPR. There was significant leukocytosis on presentation blood count of 26.9, and elevated lactic acid level of 9 and a chest x-ray revealing bilateral consolidation right greater than left. Should be noted that the patient is not usually a significant fluid stef between dialysis sessions. Unfortunately patient was unable to provide any history of time of consultation as he is sedated on the ventilator. Interval History Patient still intubated on ventilatory support. Patient seen during dialysis. Dialysis access is working well and patient is tolerating ultrafiltration. Review of Systems General General Remarks Unobtainable Objective Data Data 04/07/17 04/08/17 19:00 07:00 Intake Total 300 ml Output Total 200.0 ml Balance 100.0 ml Intake IV Total 300 ml Tube Feeding Residual Discard 200.0 ml Vital Signs Date Time Temp Pulse Resp B/P (MAP) Pulse Ox O2 Delivery O2 Flow Rate FiO2 04/07/17 14:00 116 04/07/17 13:00 78 04/07/17 12:00 98.8 79 16 149/79 (102) 95 04/07/17 12:00 79 04/07/17 12:00 70 04/07/17 11:17 98 60 04/07/17 11:00 80 04/07/17 10:00 81 04/07/17 09:00 80 04/07/17 08:04 94 70 04/07/17 08:00 70 04/07/17 08:00 99.0 101 16 137/86 (103) 99 04/07/17 08:00 101 04/07/17 07:00 103 04/07/17 06:00 113 04/07/17 04:06 98 70 04/07/17 04:00 75 04/07/17 04:00 99.8 75 16 149/74 (99) 98 04/07/17 04:00 70 04/07/17 02:00 79 04/07/17 00:13 97 70 04/07/17 00:00 81 04/07/17 00:00 100.2 81 16 155/79 (104) 96 04/07/17 00:00 70 04/06/17 22:00 77 04/06/17 20:30 96 70 04/06/17 20:00 74 04/06/17 20:00 99.9 74 16 147/75 (99) 98 04/06/17 20:00 70 04/06/17 19:00 75 04/06/17 18:30 77 04/06/17 18:00 80 04/06/17 17:30 75 04/06/17 17:00 77 16 147/72 (97) 98 Arterial Line 04/06/17 17:00 77 04/06/17 16:30 78 04/06/17 16:30 78 16 146/73 (97) 98 Arterial Line 04/06/17 16:00 78 04/06/17 16:00 70 04/06/17 16:00 99.4 78 16 147/72 (97) 98 Arterial Line 04/06/17 15:30 79 16 149/75 (99) 97 Arterial Line 04/06/17 15:30 79 04/06/17 15:20 94 70 04/06/17 15:00 83 04/06/17 15:00 83 20 151/74 (99) 84 Arterial Line -: 04/07/17 0327 04/07/17 0327 Physical Exam General Appearance: No Acute Distress, Comfortable Pulmonary Resp Exam: Clear Bilaterally, Diminished Breath Sounds Cardiology CV Exam: Regular, Normal Sinus Rhythm Gastrointestinal/Abdomen GI Exam: Soft, Non-Tender Extremeties Extremities Exam: Moderate Edema, Pitting Edema Neurologic Neuro Exam: Sedated Assessment/Plan Problem List: (1) ESRD (end stage renal disease) on dialysis ICD Codes: N18.6 - End stage renal disease; Z99.2 - Dependence on renal dialysis Status: Chronic Plan: The patient is tolerating fluid removal with a goal of 3.5 L. Dialysis will likely be Sunday. Medications to be adjusted for ESRD. Avoid gadolinium. (2) Sepsis due to pneumonia ICD Codes: J18.9 - Pneumonia, unspecified organism; A41.9 - Sepsis, unspecified organism Plan: Appears to be clinically present. There may have been a component of some fluid retention related patient missing dialysis but I believe the primary consideration here would be pneumonia as far as chest x-ray findings are concerned. Defer antibiotic therapy to critical care. (3) Shock liver ICD Codes: K72.00 - Acute and subacute hepatic failure without coma Plan: Improving. (4) Cardiac arrest with pulseless electrical activity ICD Codes: I46.9 - Cardiac arrest, cause unspecified Status: Acute (5) HTN (hypertension) ICD Codes: I10 - Hypertension Status: Chronic (6) Anemia of renal disease ICD Codes: D63.1 - Anemia in chronic kidney disease Status: Chronic Plan: Epogen as ordered with follow-up of hemoglobin. David Kennedy MD Apr 07, 2017 14:52
[2017-04-07] MEDS: INSULIN NovoLIN REGULAR SUPPLEMENTAL SCALE SQ SCH (17:05)
[2017-04-07] MEDS: POLYETHYLENE GLYCOL 17 GM PKG NG SCH (20:47)
[2017-04-08] VITALS (26 sets, daily range): BP systolic 128–161; BP diastolic 72–81; PULSE 71–100; RESP 16–18; TEMP 98.5–99.8; O2SAT 94–100
[2017-04-08] MEDS: PROPOFOL 1000 MG/100 ML INJ 100 ML IV PRN ×3 (01:39→19:06)
[2017-04-08] MEDS: RESP: ALBUTEROL 2.5 MG/IPRATROPIUM 0.5 MG NEB (SCH) INH (03:43)
[2017-04-08] MEDS: CHLORHEXIDINE GLUCONATE 2 % 1 PACK (2 CLOTHS) TOP SCH (04:00)
[2017-04-08 04:09] LABS: AUTOMATED NEUTROPHIL # 6.4 TH/MM3 (1.8-7.7); BASOPHIL % 0.4 % (0.0-2.0); EOSINOPHIL # 0.1 TH/MM3 (0-0.4); EOSINOPHIL % 0.7 % (0.0-4.0); HEMATOCRIT 27.3 % (39.0-51.0); LYMPH % 5.3 % (9.0-44.0); LYMPHOCYTE # 0.4 TH/MM3 (1.0-4.8); MEAN CORPUSCULAR HEMOGLOBIN 28.5 PG (27.0-34.0); MEAN CORPUSCULAR HGB CONC 32.7 % (32.0-36.0); MONO % 8.7 % (0.0-8.0); NEUT % 84.9 % (16.0-70.0); PLATELET COUNT 48 TH/MM3 (150-450); RED BLOOD COUNT 3.14 MIL/MM3 (4.50-5.90); RED CELL DISTRIBUTION WIDTH 16.6 % (11.6-17.2); WHITE BLOOD COUNT 7.6 TH/MM3 (4.0-11.0)
[2017-04-08 04:10] LABS: HEMO FLAGS AUTO DIFF
[2017-04-08 04:31] LABS: BICARBONATE 31.7 MEQ/L (21.0-32.0); POTASSIUM 3.5 MEQ/L (3.5-5.1)
[2017-04-08 04:37] LABS: INDIRECT BILIRUBIN 1.5 MG/DL (0.0-0.8); TOTAL BILIRUBIN ADULT 4.2 MG/DL (0.2-1.0)
[2017-04-08] MEDS: PIPERACIL-TAZO 2.25 GM PREMIX 50 ML IV SCH ×4 (04:42→22:20)
[2017-04-08 05:10] LABS: SCAN/DIFF AUTO DIFF CONFIRMED
--- NOTE | 2017-04-08 05:29 | RADRPT ---
EXAM DATE/TIME: 04/08/2017 04:24 [facility] COMPARISON: CHEST SINGLE AP, April 07, 2017, 2:37. INDICATIONS : Shortness of breath, possible pulmonary disease. MEDICAL HISTORY : Hypertension. Congestive heart failure. Diabetes mellitus type II. SURGICAL HISTORY : CABG. ENCOUNTER: Subsequent ACUITY: 1 week PAIN SCORE: Non-responsive. LOCATION: Bilateral chest FINDINGS: Portable AP view of the chest demonstrates a normal-sized cardiac silhouette post median sternotomy. ETT, nasogastric tube, and right IJ line remain present. Multiple lines overlie the patient. There is diffuse bilateral airspace consolidation, right slightly greater than left. No pneumothorax is visua lized. CONCLUSION: Stable chest x-ray with severe diffuse bilateral airspace consolidation. Jan Temple MD on April 08, 2017 at 5:27 Board Certified Radiologist. This report was verified electronically.
[2017-04-08] MEDS: PANTOPRAZOLE SODIUM 40 MG VIAL IV PUSH SCH ×2 (05:32→17:31)
[2017-04-08] MEDS: INSULIN NovoLIN REGULAR SUPPLEMENTAL SCALE SQ SCH ×4 (05:32→17:35)
[2017-04-08] MEDS: BENEPROTEIN POWDER 1 PACK G-TUBE SCH ×3 (09:00→17:31)
[2017-04-08] MEDS: SODIUM CHLORIDE 0.9% FLUSH 10 ML FLUSH IV FLUSH SCH ×2 (09:00→21:05)
[2017-04-08] MEDS: POLYETHYLENE GLYCOL 17 GM PKG NG SCH ×2 (09:00→21:05)
[2017-04-08] MEDS: ASPIRIN 81 MG CHEW TAB CHEW SCH (09:43)
[2017-04-08] MEDS: DOCUSATE SODIUM 100 MG/10 ML UDC PO SCH ×2 (09:43→21:05)
[2017-04-08] MEDS: LACTULOSE SYRUP 20 GM/30 ML CUP PO SCH (09:43)
[2017-04-08] MEDS: SENNOSIDES SYRUP 8.8 MG/5 ML CUP PO SCH ×2 (09:44→21:05)
[2017-04-08] MEDS: amLODIPine BESYLATE 5 MG TAB PO SCH (09:44)
[2017-04-08] MEDS: CHLORHEXIDINE 0.12% (ORAL KIT) 15 ML CUP MT SCH ×2 (09:44→21:06)
[2017-04-08] MEDS ORDERED: VANCOMYCIN 1,000 MG/NS 250 ML IV ONE ×2 (13:00)
--- NOTE | 2017-04-08 16:38 | HHI.CCPN ---
Subjective Remarks/Hospital Course 56-year-old male presents via EMS after the patient was coded in the field by the paramedics and had return of spontaneous circulation. According to EMS they received a call for shortness of breath and when they arrived the patient's symptoms progressed. They stated that the patient started of bradycardia down, eventually went into PEA with a bradycardic rhythm. They administered CPR for approximately one and a half minutes and gave the patient 1 mg of epinephrine. They then had return of spontaneous circulation with a bradycardic rhythm in the 30s. They then started pacing the patient in the field and intubated him in the field with a 7.5 endotracheal tube. Prior to arrival EMS states that the patient regained consciousness and was able to follow commands. Upon arrival the patient is intubated. He suffered another PEA arrest in the emergency department, again with the return of spontaneous circulation after 1 cycle of CPR. 04/05/17: Patient remains intubated sedated. Improved neuro exam now following commands when sedation lightened. Remains anuric received hemodialysis yesterday with 1 L removed. FiO2 requirement remains high at 65% with chest x- ray showing bilateral pulmonary edema. PEEP increased to 10, Plan for repeat hemodialysis today. Receiving 1 unit PRBC for hemoglobin of 6.9. Tachycardia resolved. Lactic acid is improved but still elevated at 2.9. Platelet count decreased to 78 most likely DIC. BUN/creatinine 29/3.73 04/06: Resting comfortable in bed. Eyes open to command. Currently afebrile. Currently on fentanyl drip at 200 g an hour. Urine output is minimal. Status post hemodialysis yesterday last 3 L Subjective 04/07: Tmax 100.2. Currently 99.8. Increased tube feed residuals overnight. Check KUB. Bowel regimen increased. Arousable on fentanyl drip. Will transition back to propofol given 1 dose of methylnaloxone today. 04/08: Tmax 99.1. No acute events overnight. Ostomy output approximately 75 cc liquid brown stool. Residuals decreased significantly. Objective Vital Signs Date Time Temp Pulse Resp B/P (MAP) Pulse Ox O2 Delivery O2 Flow Rate FiO2 04/08/17 16:00 50 04/08/17 15:17 95 04/08/17 15:00 73 04/08/17 12:00 99.1 16 142/78 (99) Intake and Output 12/304/08/17 04/09/17 08:00 16:00 00:00 Intake Total 794 ml Output Total 0 ml Balance 794 ml Result Diagram: 04/08/17 0350 04/08/17 0350 Imaging Last Impressions Chest X-Ray 04/06/17 0600 Signed Impressions: Service Date/Time: Thursday, April 06, 2017 02:45 - CONCLUSION: Diffuse severe bilateral airspace consolidation, increased from the prior study. Jan Temple MD Objective Remarks GENERAL 48-year-old male, critically ill currently orotracheally intubated, resting comfortably SKIN: Warm and dry. No rash HEAD: Normocephalic. EYES: No scleral icterus. No injection or drainage. NECK: Supple, trachea midline. No JVD or lymphadenopathy. CARDIOVASCULAR: Regular rate and rhythm. S1, S2 no S4. Without murmurs, gallops, or rubs. RESPIRATORY: Breath sounds equal bilaterally. Bilateral scattered crackles, few wheezes GASTROINTESTINAL: Abdomen soft, non-tender, nondistended. Colostomy in place in right lower quadrant, liquid brown stool output MUSCULOSKELETAL: No significant peripheral NEURO EXAM:The patient is sedated and intubated, off sedation. Pupils are round , reactive to light. 3 mm. Follows commands in all 4 extremities Line: Central Venous Catheter Side: Right Location: Internal, Jugular A/P Assessment and Plan Neuro/Psych: History of peripheral neuropathy Fentanyl infusion discontinued 04/07 . Propofol initiated sedation/analgesia while intubated. Goal of RASS -2 Daily sedation vacation once hypoxia improves - Patient has no evidence of anoxic brain injury at this time Holding pregabalin 75 mg twice a day Resp: Acute hypoxemic respiratory failure Pulmonary edema - Intubated for airway protection, and cardiac arrest, now hypoxemic - Underlying pulmonary edema - Continue mechanical ventilation currently on PRBC 16/500/1.2/8/50 Ventilator bundle Albuterol/ipratropium aerosols every 6 hours and albuterol aerosols every 2 hours. Dyspnea - No weaning until hemodynamically stable, hypoxia improved Chest x-ray 04/08-severe diffuse bilateral consolidations right greater than left CVS PEA Cardiac arrest CABG x2 (03/01/2017 at [facility]) with BERG to LAD, SVG to OM1. Coronary artery disease - left circumflex 80%, OM1 90%, LAD 80%, RCA 100% with collaterals Peripheral arterial disease Shock resolved Pulmonary edema - PEA arrest most likely secondary to hypoxia and hyperkalemia no evidence of ACS Temporary pacing discontinued -Echocardiogram EF 35-40%. Questionable left atrial shunt. Mild MR/TR Cardiology Dr. Blair following - Continue aspirin 81 mg daily - EKG and troponin x3 negative - Fluid removal with HD, s/p 1L fluid removed 04/04, repeat hemodialysis per nephrology Home medications metoprolol 50 mg twice a day, enalapril 10 mg daily and amlodipine 10 mg daily. GI: Transaminitis Shock liver History of colostomy Elevated total bilirubin Continue Neutra hep trickle feeds 20 cc daily Pantoprazole 40 mg IV every 12 Docusate sodium/senna liquid twice a day and senna liquid twice a day along with polyethylene glycol twice a day and lactulose daily - Transaminitis secondary to shock to use to improve 1 dose of methylnaltrexone 1 today Continue to trend ammonia level and hepatic profile in a.m. HEME: Normocytic Anemia requiring transfusion Thrombocytopenia - Transfuse 1 U PRBCs during this hospitalization - Monitor H&H /FEN/renal: ESRD [id number] - Nephrology following Dr. Kennedy and HD per nephrology Replace as clinically indicated ID: Probable sepsis/septic shock - Empiric broad-spectrum antibiotic with piperacillin/tazobactam until cultures come back negative - Single dose of vancomycin given Blood cultures 2, sputum and urine 04/04 no growth to date ENDO: Sliding-scale insulin low regimen to maintain euglycemia every 6 hours DVT GI prophylaxis - Teds SCDs - No pharmacological DVT prophylaxis due to severe anemia -Pantoprazole IV twice a day Access - right IJ CVL placed 04/04 by ED physician Dispo: Level 2 Discussed with DEHYDRATING PRESS OPERATOR at bedside Physician Inge Harrington MD Apr 08, 2017 16:38
[2017-04-08] MEDS: RESP: ALBUTEROL 2.5 MG/IPRATROPIUM 0.5 MG NEB (SCH) NEB (19:54)
[2017-04-09] VITALS (22 sets, daily range): BP systolic 112–187; BP diastolic 59–102; PULSE 76–132; RESP 15–23; TEMP 97.6–99.9; O2SAT 90–100
[2017-04-09] MEDS: PIPERACIL-TAZO 2.25 GM PREMIX 50 ML IV SCH ×4 (03:18→22:09)
[2017-04-09] MEDS: CHLORHEXIDINE GLUCONATE 2 % 1 PACK (2 CLOTHS) TOP SCH (03:18)
[2017-04-09] MEDS: PROPOFOL 1000 MG/100 ML INJ 100 ML IV PRN ×4 (03:19→20:53)
[2017-04-09] MEDS: RESP: ALBUTEROL 2.5 MG/IPRATROPIUM 0.5 MG NEB (SCH) NEB ×4 (03:46→19:50)
[2017-04-09 04:30] LABS: HEMATOCRIT 26.3 % (39.0-51.0); MEAN CELL VOLUME 87.5 FL (80.0-100.0); MEAN CORPUSCULAR HGB CONC 33.1 % (32.0-36.0); PLATELET COUNT 55 TH/MM3 (150-450); RED CELL DISTRIBUTION WIDTH 16.9 % (11.6-17.2); WHITE BLOOD COUNT 6.6 TH/MM3 (4.0-11.0)
[2017-04-09 04:39] LABS: REVIEW FLAG FINAL
[2017-04-09 04:52] LABS: BICARBONATE 28.9 MEQ/L (21.0-32.0); INDIRECT BILIRUBIN 0.8 MG/DL (0.0-0.8); POTASSIUM 3.3 MEQ/L (3.5-5.1); TOTAL BILIRUBIN ADULT 2.6 MG/DL (0.2-1.0)
[2017-04-09] MEDS: INSULIN NovoLIN REGULAR SUPPLEMENTAL SCALE SQ SCH ×4 (06:00→17:35)
[2017-04-09] MEDS: PANTOPRAZOLE SODIUM 40 MG VIAL IV PUSH SCH ×2 (06:14→17:37)
[2017-04-09] MEDS: CHLORHEXIDINE 0.12% (ORAL KIT) 15 ML CUP MT SCH ×2 (08:29→20:39)
[2017-04-09] MEDS: LACTULOSE SYRUP 20 GM/30 ML CUP PO SCH (08:30)
[2017-04-09] MEDS: SODIUM CHLORIDE 0.9% FLUSH 10 ML FLUSH IV FLUSH SCH ×2 (08:30→22:10)
[2017-04-09] MEDS: DOCUSATE SODIUM 100 MG/10 ML UDC PO SCH ×2 (08:30→20:39)
[2017-04-09] MEDS: amLODIPine BESYLATE 5 MG TAB PO SCH (08:32)
[2017-04-09] MEDS: BENEPROTEIN POWDER 1 PACK G-TUBE SCH ×3 (09:00→17:36)
[2017-04-09] MEDS: ASPIRIN 81 MG CHEW TAB CHEW SCH (09:03)
[2017-04-09] MEDS: POLYETHYLENE GLYCOL 17 GM PKG NG SCH ×2 (09:04→20:39)
[2017-04-09] MEDS: SENNOSIDES SYRUP 8.8 MG/5 ML CUP PO SCH ×2 (09:04→20:39)
--- NOTE | 2017-04-09 11:23 | HHI.NPPN ---
Subjective History of Present Illness 56-year-old male with a history of end-stage renal disease, diabetes mellitus, hypertension and relatively recent CABG also has a history at times noncompliance with dialysis. Patient apparently missed his dialysis session yesterday sequently presenting to this institution with increasing shortness of breath noted to have evidence of bradycardia subsequently having a PEA requiring multiple episodes of CPR. There was significant leukocytosis on presentation blood count of 26.9, and elevated lactic acid level of 9 and a chest x-ray revealing bilateral consolidation right greater than left. Should be noted that the patient is not usually a significant fluid stef between dialysis sessions. Unfortunately patient was unable to provide any history of time of consultation as he is sedated on the ventilator. Interval History Patient remains intubated on ventilatory support. Review of Systems General General Remarks Unobtainable Objective Data Data 04/09/17 04/10/17 18:59 06:59 Intake Total 92 ml Balance 92 ml Intake IV Total 92 ml Vital Signs Date Time Temp Pulse Resp B/P (MAP) Pulse Ox O2 Delivery O2 Flow Rate FiO2 04/09/17 10:00 97 04/09/17 08:00 94 04/09/17 08:00 97.8 94 19 158/80 (106) 98 04/09/17 08:00 45 04/09/17 07:57 97 40 04/09/17 06:00 94 04/09/17 04:55 100 40 04/09/17 04:00 85 04/09/17 04:00 99.0 85 16 149/76 (100) 96 04/09/17 04:00 50 04/09/17 02:00 81 04/09/17 01:59 97 50 04/09/17 00:00 50 04/09/17 00:00 99.9 82 17 142/75 (97) 97 04/09/17 00:00 82 04/08/17 22:10 99 50 04/08/17 22:00 94 04/08/17 20:00 81 04/08/17 20:00 99.8 82 17 141/76 (97) 95 04/08/17 20:00 50 04/08/17 19:25 100 50 04/08/17 18:00 90 04/08/17 17:00 86 04/08/17 16:34 96 50 04/08/17 16:00 71 04/08/17 16:00 50 04/08/17 16:00 99.4 71 18 131/73 (92) 94 04/08/17 15:17 95 50 04/08/17 15:00 73 04/08/17 14:00 90 04/08/17 13:00 80 04/08/17 12:00 78 04/08/17 12:00 99.1 78 16 142/78 (99) 95 04/08/17 12:00 50 -: 04/09/17 0415 04/09/17 0415 Physical Exam General Appearance: No Acute Distress, Comfortable Pulmonary Resp Exam: Clear Bilaterally, Diminished Breath Sounds Cardiology CV Exam: Regular, Normal Sinus Rhythm Gastrointestinal/Abdomen GI Exam: Soft, Non-Tender Extremeties Extremities Exam: Moderate Edema, Pitting Edema Neurologic Neuro Exam: Sedated Assessment/Plan Problem List: (1) ESRD (end stage renal disease) on dialysis ICD Codes: N18.6 - End stage renal disease; Z99.2 - Dependence on renal dialysis Status: Chronic Plan: Hemodialysis today with 3.5 KG fluid removal as tolerated. We'll consider dialysis again depending upon volume status tomorrow also. Medications to be adjusted for ESRD. Avoid gadolinium. (2) Sepsis due to pneumonia ICD Codes: J18.9 - Pneumonia, unspecified organism; A41.9 - Sepsis, unspecified organism Plan: Appears to be clinically present. There may have been a component of some fluid retention related patient missing dialysis but I believe the primary consideration here would be pneumonia as far as chest x-ray findings are concerned. Defer antibiotic therapy to critical care. (3) Anemia of renal disease ICD Codes: D63.1 - Anemia in chronic kidney disease Status: Chronic Plan: Continue Epogen as ordered with follow-up of hemoglobin. (4) Cardiac arrest with pulseless electrical activity ICD Codes: I46.9 - Cardiac arrest, cause unspecified Status: Acute (5) HTN (hypertension) ICD Codes: I10 - Hypertension Status: Chronic (6) Shock liver ICD Codes: K72.00 - Acute and subacute hepatic failure without coma Plan: Improving. David Kennedy MD Apr 09, 2017 11:23
--- NOTE | 2017-04-09 12:12 | PD.CARD.PN ---
Subjective Subjective Remarks No events over the weekend No bradycardia noted Tachycardia currently but off sedation Able to follow simple commands Objective Medications Current Medications Medications (Trade) Dose Ordered Sig/Hallie Route Start Time Stop Time Status Last Admin (NS Flush) 2 ml UNSCH PRN IVF 04/04/17 00:00 Propofol 100 ml @ 2.25 mls/hr TITRATE PRN IV 04/04/17 00:15 04/09/17 09:56 (Brethine Inj) 1 mg UNSCH PRN SQ 04/04/17 02:30 (NS Flush) 2 ml UNSCH PRN IV FLUSH 04/04/17 02:30 (NS Flush) 2 ml BID IV FLUSH 04/04/17 09:00 04/09/17 08:30 (Tylenol) 650 mg Q6H PRN PO 04/04/17 02:30 (Morphine Inj) 2 mg Q2H PRN IV PUSH 04/04/17 02:30 (Protonix Inj) 40 mg Q12H IV PUSH 04/04/17 06:00 04/09/17 06:14 (Ativan Inj) 1 mg Q1H PRN IV PUSH 04/04/17 02:30 (Zofran Inj) 4 mg Q6H PRN IV PUSH 04/04/17 02:30 Miscellaneous Information 1 Q361D XX 04/04/17 02:30 04/04/17 03:00 (Chlorhexidine 2% Cloth) Taper DAILY@04 TOP 04/04/17 04:00 03/31/18 03:59 04/08/17 04:00 (Chlorhexidine 2% Cloth) 3 pack UNSCH PRN TOP 04/04/17 02:30 (Milk Of Magnesia Liq) 30 ml Q12H PRN PO 04/04/17 02:30 (Dulcolax Supp) 10 mg DAILY PRN RECTAL 04/04/17 02:30 (Lactulose Liq) 30 ml DAILY PRN PO 04/04/17 02:30 (Peridex 0.12% Liq) 15 ml BID@08,20 MT 04/04/17 08:00 04/09/17 08:29 Piperacillin Sod/ Tazobactam Sod 50 ml @ 200 mls/hr Q6H IV 04/04/17 04:00 04/09/17 09:56 Pharmacy Profile Note 0 ml @ 0 mls/hr UNSCH OTHER 04/04/17 02:45 Sodium Chloride 1,000 ml @ 0 mls/hr Q0M PRN OTHER 04/04/17 11:36 Sodium Chloride 1,000 ml @ 200 mls/hr Q5H PRN IV 04/04/17 11:36 Sodium Chloride 1,000 ml @ 0 mls/hr Q0M PRN OTHER 04/04/17 11:36 (Mannitol Inj) 12.5 gm UNSCH PRN IV 04/04/17 11:45 Albumin Human 100 ml @ 60 mls/hr UNSCH PRN IV 04/04/17 11:45 04/04/17 13:53 (NS Flush) 5 ml UNSCH PRN IV FLUSH 04/04/17 11:45 (Heparin Inj) UNSCH PRN .XX 04/04/17 11:45 (Gentamicin (Dialysis) Inj) 20 mg UNSCH PRN OTHER 04/04/17 11:45 (Zofran Inj) 4 mg UNSCH PRN IV PUSH 04/04/17 11:45 (Tylenol) 650 mg UNSCH PRN PO 04/04/17 11:45 04/06/17 23:53 (Benadryl) 25 mg UNSCH PRN PO 04/04/17 11:45 (Nitrostat Sl) 0.4 mg UNSCH PRN SL 04/04/17 11:45 (Catapres) 0.1 mg UNSCH PRN PO 04/04/17 11:45 (Gelfoam 12 Mm/7 Mm Top) 1 foam UNSCH PRN TOP 04/04/17 11:45 04/07/17 13:20 (Epogen Inj) 10,000 units MoWeFr SQ 04/04/17 20:00 04/06/17 20:28 (Aspirin Chew) 81 mg DAILY CHEW 04/05/17 09:00 04/09/17 09:03 (Norvasc) 2.5 mg DAILY PO 04/07/17 09:00 04/09/17 08:32 (Apresoline Inj) 10 mg Q1HR PRN IV PUSH 04/06/17 15:00 (Nitroglycerin 2% Oint) 2 inch Q6HR PRN TOPICAL 04/06/17 15:00 (Beneprotein Powder) 1 pack TID G-TUBE 04/06/17 18:00 124/17 09:00 (Albuterol Neb) 2.5 mg Q2HR NEB PRN NEB 04/06/17 15:15 (Colace Liq) 100 mg Q12HR PO 04/06/17 21:00 04/09/17 08:30 (Senna Liq) 8.8 mg BID PO 04/06/17 21:00 04/09/17 09:04 (Miralax) 17 gm BID NG 04/07/17 21:00 04/09/17 09:04 (Lactulose Liq) 30 ml DAILY PO 04/08/17 09:00 04/09/17 08:30 (D50w (Vial) Inj) 50 ml UNSCH PRN IV PUSH 04/07/17 12:30 (Glucagon Inj) 1 mg UNSCH PRN OTHER 04/07/17 12:30 (NovoLIN R SUPPLEMENTAL SCALE) 1 Q6HR SQ 04/07/17 18:00 04/08/17 17:35 Vancomycin HCl 1000 mg/Sodium Chloride 250 ml @ 250 mls/hr WITH DIALYSIS IV 04/09/17 13:00 Future hold (Duoneb Neb) 1 ampule Q6HR NEB NEB 04/08/17 16:30 04/09/17 07:56 Vital Signs / I&O Vital Signs Date Time Temp Pulse Resp B/P (MAP) Pulse Ox O2 Delivery O2 Flow Rate FiO2 04/09/17 12:00 45 04/09/17 12:00 97.6 91 17 133/67 (89) 94 04/09/17 12:00 91 04/09/17 11:35 93 45 04/09/17 11:00 124 23 169/97 (121) 100 04/09/17 10:00 97 19 163/84 (110) 95 04/09/17 10:00 97 04/09/17 09:00 98 18 161/84 (109) 91 04/09/17 08:00 94 04/09/17 08:00 97.8 94 19 158/80 (106) 98 04/09/17 08:00 45 04/09/17 07:57 97 40 04/09/17 06:00 94 04/09/17 04:55 100 40 04/09/17 04:00 85 04/09/17 04:00 99.0 85 16 149/76 (100) 96 04/09/17 04:00 50 04/09/17 02:00 81 04/09/17 01:59 97 50 04/09/17 00:00 50 04/09/17 00:00 99.9 82 17 142/75 (97) 97 04/09/17 00:00 82 04/08/17 22:10 99 50 04/08/17 22:00 94 04/08/17 20:00 81 04/08/17 20:00 99.8 82 17 141/76 (97) 95 04/08/17 20:00 50 04/08/17 19:25 100 50 04/08/17 18:00 90 04/08/17 17:00 86 04/08/17 16:34 96 50 04/08/17 16:00 71 04/08/17 16:00 50 04/08/17 16:00 99.4 71 18 131/73 (92) 94 04/08/17 15:17 95 50 04/08/17 15:00 73 04/08/17 14:00 90 04/08/17 13:00 80 I/O 04/08/17 04/08/17 04/08/17 04/09/17 04/09/17 04/09/17 06:59 14:59 22:59 06:59 14:59 22:59 Intake Total 844 ml 694 ml 481 ml 409 ml 92 ml Output Total 0 ml 475 ml 325 ml Balance 844 ml 694 ml 6 ml 84 ml 92 ml Intake IV Total 603 ml 694 ml 150 ml 234 ml 92 ml Tube Feeding 121 ml 211 ml 115 ml Other 120 ml 120 ml 60 ml Output Urine Total 0 ml 400 ml 0 ml Stool Total 0 ml 75 ml 325 ml Physical Exam GENERAL: Intubated SKIN: Warm and dry. HEAD: Atraumatic. Normocephalic. EYES: Pupils equal and round. No scleral icterus. No injection or drainage. ENT: No nasal bleeding or discharge. Mucous membranes pink and moist. NECK: Trachea midline. No JVD. CARDIOVASCULAR: Regular rate and rhythm. RESPIRATORY: No accessory muscle use. Clear to auscultation. Breath sounds equal bilaterally. GASTROINTESTINAL: Abdomen soft, non-tender, nondistended. Hepatic and splenic margins not palpable. MUSCULOSKELETAL: Extremities without clubbing, cyanosis, or edema. No obvious deformities. NEUROLOGICAL: Intubated, off sedation, following simple commands Laboratory Laboratory Tests Test 04/09/17 04:15 White Blood Count 6.6 TH/MM3 Red Blood Count 3.00 MIL/MM3 Hemoglobin 8.7 GM/DL Hematocrit 26.3 % Mean Corpuscular Volume 87.5 FL Mean Corpuscular Hemoglobin 29.0 PG Mean Corpuscular Hemoglobin Concent 33.1 % Red Cell Distribution Width 16.9 % Platelet Count 55 TH/MM3 Mean Platelet Volume 10.0 FL Blood Urea Nitrogen 32 MG/DL Creatinine 4.45 MG/DL Random Glucose 141 MG/DL Total Protein 6.1 GM/DL Albumin 2.6 GM/DL Calcium Level 8.2 MG/DL Alkaline Phosphatase 161 U/L Aspartate Amino Transf (AST/SGOT) 46 U/L Alanine Aminotransferase (ALT/SGPT) 311 U/L Total Bilirubin 2.6 MG/DL Direct Bilirubin 1.8 MG/DL Sodium Level 141 MEQ/L Potassium Level 3.3 MEQ/L Chloride Level 101 MEQ/L Carbon Dioxide Level 28.9 MEQ/L Anion Gap 11 MEQ/L Estimat Glomerular Filtration Rate 14 ML/MIN Indirect Bilirubin 0.8 MG/DL Ammonia 23 MCMOL/L Random Vancomycin Level 27.7 COMMENT Assessment and Plan Problem List: (1) Hx of CABG ICD Codes: Z95.1 - Presence of aortocoronary bypass graft (2) Cardiac arrest with pulseless electrical activity ICD Codes: I46.9 - Cardiac arrest, cause unspecified Status: Acute (3) Symptomatic bradycardia ICD Codes: R00.1 - Bradycardia, unspecified Status: Acute (4) Hyperkalemia ICD Codes: E87.5 - Hyperkalemia Status: Resolved (5) Shock liver ICD Codes: K72.00 - Acute and subacute hepatic failure without coma (6) ESRD (end stage renal disease) on dialysis ICD Codes: N18.6 - End stage renal disease; Z99.2 - Dependence on renal dialysis Status: Chronic (7) Anemia of renal disease ICD Codes: D63.1 - Anemia in chronic kidney disease Status: Chronic (8) Sepsis due to pneumonia ICD Codes: J18.9 - Pneumonia, unspecified organism; A41.9 - Sepsis, unspecified organism (9) HTN (hypertension) ICD Codes: I10 - Hypertension Status: Chronic Assessment and Plan 1) PEA arrest Possible hypoxic with anemia 2) CABGx2 Trops negative, most likely non-cardiac arrest Con't ASA if possible 3) EF 35-40%, mild MR/TR Possible due to shock, will need to eventually recheck 4) Shock liver 5) Anemia Unsure of cause 6) ESRD on HD 7) Symptomatic bradycardia resolved 8) Thrombocytopenia, most likely due to shock liver Will need to follow Con't ASA as long as Platelets above 50K Jhonathan Blair DO Apr 09, 2017 12:12
[2017-04-09] MEDS: LORazepam 2 MG/ML VIAL IV PUSH PRN (14:23)
--- NOTE | 2017-04-09 14:56 | HHI.CCPN ---
Subjective Remarks/Hospital Course 56-year-old male presents via EMS after the patient was coded in the field by the paramedics and had return of spontaneous circulation. According to EMS they received a call for shortness of breath and when they arrived the patient's symptoms progressed. They stated that the patient started of bradycardia down, eventually went into PEA with a bradycardic rhythm. They administered CPR for approximately one and a half minutes and gave the patient 1 mg of epinephrine. They then had return of spontaneous circulation with a bradycardic rhythm in the 30s. They then started pacing the patient in the field and intubated him in the field with a 7.5 endotracheal tube. Prior to arrival EMS states that the patient regained consciousness and was able to follow commands. Upon arrival the patient is intubated. He suffered another PEA arrest in the emergency department, again with the return of spontaneous circulation after 1 cycle of CPR. 04/05/17: Patient remains intubated sedated. Improved neuro exam now following commands when sedation lightened. Remains anuric received hemodialysis yesterday with 1 L removed. FiO2 requirement remains high at 65% with chest x- ray showing bilateral pulmonary edema. PEEP increased to 10, Plan for repeat hemodialysis today. Receiving 1 unit PRBC for hemoglobin of 6.9. Tachycardia resolved. Lactic acid is improved but still elevated at 2.9. Platelet count decreased to 78 most likely DIC. BUN/creatinine 29/3.73 04/06: Resting comfortable in bed. Eyes open to command. Currently afebrile. Currently on fentanyl drip at 200 g an hour. Urine output is minimal. Status post hemodialysis yesterday last 3 L Subjective 04/07: Tmax 100.2. Currently 99.8. Increased tube feed residuals overnight. Check KUB. Bowel regimen increased. Arousable on fentanyl drip. Will transition back to propofol given 1 dose of methylnaloxone today. 04/08: Tmax 99.1. No acute events overnight. Ostomy output approximately 75 cc liquid brown stool. Residuals decreased significantly. 04/09: Afebrile. Patient more restless and agitated today. Patient dyssynchronous with ventilator fentanyl infusion instituted. We'll continue to monitor ostomy stool output. Hemoccult pending. Objective Vital Signs Date Time Temp Pulse Resp B/P (MAP) Pulse Ox O2 Delivery O2 Flow Rate FiO2 04/09/17 14:00 104 04/09/17 13:37 50 04/09/17 12:00 97.6 17 133/67 (78) 94 Intake and Output 04/09/17 04/09/17 04/10/17 08:00 16:00 00:00 Intake Total 359 ml 92 ml Output Total 325 ml Balance 34 ml 92 ml Result Diagram: 04/09/17 0415 04/09/17 0415 Imaging Last Impressions Chest X-Ray 04/06/17 0600 Signed Impressions: Service Date/Time: Thursday, April 06, 2017 02:45 - CONCLUSION: Diffuse severe bilateral airspace consolidation, increased from the prior study. Jan Temple MD Objective Remarks GENERAL 48-year-old male, critically ill currently orotracheally intubated, agitated, synchronous with vent on maximum dose of propofol 50 mics SKIN: Warm and dry. No rash HEAD: Normocephalic. EYES: No scleral icterus. No injection or drainage. NECK: Supple, trachea midline. No JVD or lymphadenopathy. CARDIOVASCULAR: Regular rate and rhythm. S1, S2 no S4. Without murmurs, gallops, or rubs. RESPIRATORY: Breath sounds equal bilaterally. Bilateral scattered crackles, few wheezes GASTROINTESTINAL: Abdomen soft, non-tender, nondistended. Colostomy in place in right lower quadrant, liquid brown stool output MUSCULOSKELETAL: No significant peripheral NEURO EXAM: [id number]. Pupils are round, reactive to light. 3 mm. Follows commands in all 4 extremities Line: Central Venous Catheter Side: Right Location: Internal, Jugular A/P Assessment and Plan Neuro/Psych: History of peripheral neuropathy Fentanyl infusion discontinued 04/07 and reinstitued 04/09 . Propofol initiated sedation/analgesia while intubated. Goal of RASS -2 Daily sedation vacation once hypoxia improves - Patient has no evidence of anoxic brain injury at this time Holding pregabalin 75 mg twice a day Resp: Acute hypoxemic respiratory failure Pulmonary edema - Intubated for airway protection, and cardiac arrest, now hypoxemic - Underlying pulmonary edema - Continue mechanical ventilation currently on PRBC 16/500/1.2/8/50 Ventilator bundle Albuterol/ipratropium aerosols every 6 hours and albuterol aerosols every 2 hours. Dyspnea - No weaning until hemodynamically stable, hypoxia improved Chest x-ray 04/08-severe diffuse bilateral consolidations right greater than left CVS PEA Cardiac arrest CABG x2 (03/01/2017 at [facility]) with BERG to LAD, SVG to OM1. Coronary artery disease - left circumflex 80%, OM1 90%, LAD 80%, RCA 100% with collaterals Peripheral arterial disease Shock resolved Pulmonary edema - PEA arrest most likely secondary to hypoxia and hyperkalemia no evidence of ACS Temporary pacing discontinued -Echocardiogram EF 35-40%. Questionable left atrial shunt. Mild MR/TR Cardiology Dr. Blair following - Continue aspirin 81 mg daily - EKG and troponin x3 negative - Fluid removal with HD, s/p 1L fluid removed 04/04, repeat hemodialysis per nephrology Home medications metoprolol 50 mg twice a day, enalapril 10 mg daily and amlodipine 10 mg daily. GI: Transaminitis Shock liver History of colostomy Elevated total bilirubin Continue Neutra hep trickle feeds 20 cc daily Pantoprazole 40 mg IV every 12 Docusate sodium/senna liquid twice a day and senna liquid twice a day along with polyethylene glycol twice a day and lactulose daily - Transaminitis secondary to shock to use to improve 1 dose of methylnaltrexone 1 04/07 Alkaline phosphatase elevated, will monitor HEME: Normocytic Anemia requiring transfusion Thrombocytopenia - Transfuse 1 U PRBCs during this hospitalization - Monitor H&H /FEN/renal: ESRD [id number] - Nephrology following Dr. Kennedy and HD per nephrology.IHD 3.5 L off Replace as clinically indicated ID: Probable sepsis/septic shock - Empiric broad-spectrum antibiotic with piperacillin/tazobactam until cultures come back negative - Single dose of vancomycin given Blood cultures 2, sputum and urine 04/04 no growth to date ENDO: Sliding-scale insulin low regimen to maintain euglycemia every 6 hours DVT GI prophylaxis - Teds SCDs - No pharmacological DVT prophylaxis due to severe anemia -Pantoprazole IV twice a day Access - right IJ CVL placed 04/04 by ED physician Dispo: Level 2 Discussed with BUSINESS SUPERVISOR at bedside Physician Inge Harrington MD Apr 09, 2017 14:56
[2017-04-09] MEDS: fentaNYL DRIP 250 ML IV PRN (15:12)
[2017-04-09] MEDS: VANCOMYCIN 1,000 MG/NS 250 ML IV SCH ×2 (16:35)
[2017-04-09] MEDS: EPOETIN ALFA 10,000 UNITS/ML VIAL SQ SCH (20:46)
[2017-04-10] VITALS (22 sets, daily range): BP systolic 103–139; BP diastolic 62–74; PULSE 80–119; RESP 16–22; TEMP 98.2–99.5; O2SAT 92–98
[2017-04-10] MEDS: RESP: ALBUTEROL 2.5 MG/IPRATROPIUM 0.5 MG NEB (SCH) NEB ×4 (03:11→20:19)
[2017-04-10] MEDS: CHLORHEXIDINE GLUCONATE 2 % 1 PACK (2 CLOTHS) TOP SCH (04:00)
[2017-04-10] MEDS: PROPOFOL 1000 MG/100 ML INJ 100 ML IV PRN ×4 (04:02→22:01)
[2017-04-10 06:00] LABS: ANION GAP 9 MEQ/L (5-15); AST (GOT) 35 U/L (15-37); BICARBONATE 31.1 MEQ/L (21.0-32.0); BLOOD UREA NITROGEN 25 MG/DL (7-18); CHLORIDE 100 MEQ/L (98-107); GLOMERULAR FILTRATION RATE 18 ML/MIN (>89); POTASSIUM 3.5 MEQ/L (3.5-5.1); SODIUM (NA) 140 MEQ/L (136-145)
[2017-04-10] MEDS: INSULIN NovoLIN REGULAR SUPPLEMENTAL SCALE SQ SCH ×4 (06:00→17:29)
[2017-04-10] MEDS: PANTOPRAZOLE SODIUM 40 MG VIAL IV PUSH SCH ×2 (06:00→17:29)
[2017-04-10] MEDS: PIPERACIL-TAZO 2.25 GM PREMIX 50 ML IV SCH ×4 (06:01→22:11)
[2017-04-10 06:03] LABS: ALKALINE PHOSPHATASE 203 U/L (45-117); ALT (GPT) 228 U/L (12-78); TOTAL BILIRUBIN ADULT 2.6 MG/DL (0.2-1.0)
--- NOTE | 2017-04-10 06:09 | RADRPT ---
EXAM DATE/TIME: 04/10/2017 04:42 [place] COMPARISON: CHEST SINGLE AP, April 08, 2017, 4:24. INDICATIONS : Short of breath. MEDICAL HISTORY : Hypertension. Congestive heart failure. Diabetes mellitus type II. SURGICAL HISTORY : CABG. ENCOUNTER: Subsequent ACUITY: 1 week PAIN SCORE: 0/10 LOCATION: Bilateral chest FINDINGS: A single AP portable semierect view of the chest was obtained. This again demonstrates an endotrachea l tube in place with the tip approximately 2 cm above the bhaskar. The nasogastric tube and right inte rnal jugular central venous line remain in place. Bilateral alveolar opacities are noted which appear increased in the left lung. The heart size remains mildly prominent. The patient status post median sternotomy for bypass grafting procedure. CONCLUSION: 1. Interval increase in infiltrate in the left lung. Diffuse bilateral infiltrates remain most charac teristic of pulmonary edema. Jorge Almodovar MD on April 10, 2017 at 6:06 Board Certified Radiologist. This report was verified electronically.
[2017-04-10] MEDS: amLODIPine BESYLATE 5 MG TAB PO SCH (08:04)
[2017-04-10] MEDS: DOCUSATE SODIUM 100 MG/10 ML UDC PO SCH ×2 (08:04→22:11)
[2017-04-10] MEDS: LACTULOSE SYRUP 20 GM/30 ML CUP PO SCH (08:04)
[2017-04-10] MEDS: SENNOSIDES SYRUP 8.8 MG/5 ML CUP PO SCH ×2 (08:04→22:11)
[2017-04-10] MEDS: ASPIRIN 81 MG CHEW TAB CHEW SCH (08:04)
[2017-04-10] MEDS: POLYETHYLENE GLYCOL 17 GM PKG NG SCH ×2 (08:04→22:11)
[2017-04-10] MEDS: SODIUM CHLORIDE 0.9% FLUSH 10 ML FLUSH IV FLUSH SCH ×2 (08:04→22:12)
[2017-04-10] MEDS: CHLORHEXIDINE 0.12% (ORAL KIT) 15 ML CUP MT SCH ×2 (08:05→22:11)
[2017-04-10] MEDS: BENEPROTEIN POWDER 1 PACK G-TUBE SCH ×3 (08:05→17:29)
--- NOTE | 2017-04-10 10:22 | HHI.NPPN ---
Subjective History of Present Illness 56-year-old male with a history of end-stage renal disease, diabetes mellitus, hypertension and relatively recent CABG also has a history at times noncompliance with dialysis. Patient apparently missed his dialysis session yesterday sequently presenting to this institution with increasing shortness of breath noted to have evidence of bradycardia subsequently having a PEA requiring multiple episodes of CPR. There was significant leukocytosis on presentation blood count of 26.9, and elevated lactic acid level of 9 and a chest x-ray revealing bilateral consolidation right greater than left. Should be noted that the patient is not usually a significant fluid stef between dialysis sessions. Unfortunately patient was unable to provide any history of time of consultation as he is sedated on the ventilator. Interval History Patient remains intubated and sedated. Review of Systems General General Remarks Unobtainable Objective Data Data 04/10/17 04/11/17 19:00 07:00 Intake Total 92 ml Balance 92 ml Intake IV Total 92 ml Vital Signs Date Time Temp Pulse Resp B/P (MAP) Pulse Ox O2 Delivery O2 Flow Rate FiO2 04/10/17 10:00 119 04/10/17 09:00 116 16 117/68 (84) 96 04/10/17 09:00 45 04/10/17 08:31 95 45 04/10/17 08:00 99.5 113 16 131/65 (87) 97 04/10/17 08:00 50 04/10/17 08:00 113 04/10/17 06:00 100 04/10/17 04:20 93 50 04/10/17 04:00 98.8 92 17 128/62 (84) 92 04/10/17 04:00 50 04/10/17 04:00 92 04/10/17 02:00 92 04/10/17 00:06 94 50 04/10/17 00:00 98.2 80 16 120/63 (82) 98 04/10/17 00:00 93 04/10/17 00:00 50 04/09/17 22:00 85 04/09/17 20:00 83 04/09/17 20:00 50 04/09/17 20:00 99.5 89 15 120/66 (84) 94 04/09/17 19:51 98 50 04/09/17 18:00 76 04/09/17 16:00 114 04/09/17 16:00 98.9 114 16 112/59 (76) 98 04/09/17 16:00 60 04/09/17 15:00 123 18 142/69 (93) 90 04/09/17 14:58 90 60 04/09/17 14:00 104 04/09/17 14:00 104 20 132/82 (99) 93 04/09/17 13:37 50 04/09/17 13:00 132 23 187/102 (130) 96 04/09/17 12:00 45 04/09/17 12:00 97.6 91 17 133/67 (89) 94 04/09/17 12:00 91 04/09/17 11:35 93 45 04/09/17 11:00 124 23 169/97 (121) 100 -: 04/09/17 0415 04/10/17 0400 Physical Exam General Appearance: No Acute Distress, Comfortable Pulmonary Resp Exam: Clear Bilaterally, Diminished Breath Sounds Cardiology CV Exam: Regular, Normal Sinus Rhythm Gastrointestinal/Abdomen GI Exam: Soft, Non-Tender Extremeties Extremities Exam: Moderate Edema (involving extremities.), Pitting Edema Neurologic Neuro Exam: Sedated Assessment/Plan Problem List: (1) ESRD (end stage renal disease) on dialysis ICD Codes: N18.6 - End stage renal disease; Z99.2 - Dependence on renal dialysis Status: Chronic Plan: Still has evidence of significant fluid retention despite dialysis yesterday. Hemodialysis again today to improve his volume status and potentially improve chances of weaning patient off the ventilator. See orders. Medications to be adjusted for ESRD. Avoid gadolinium. (2) Sepsis due to pneumonia ICD Codes: J18.9 - Pneumonia, unspecified organism; A41.9 - Sepsis, unspecified organism Plan: Appears to be clinically present. Defer antibiotic therapy to critical care. (3) Anemia of renal disease ICD Codes: D63.1 - Anemia in chronic kidney disease Status: Chronic Plan: Continue Epogen as ordered with follow-up of hemoglobin. (4) Cardiac arrest with pulseless electrical activity ICD Codes: I46.9 - Cardiac arrest, cause unspecified Status: Acute (5) HTN (hypertension) ICD Codes: I10 - Hypertension Status: Chronic (6) Shock liver ICD Codes: K72.00 - Acute and subacute hepatic failure without coma Plan: Improving. David Kennedy MD Apr 10, 2017 10:22
--- NOTE | 2017-04-10 11:12 | PD.CARD.PN ---
Subjective Subjective Remarks Currently sedated, when off sedation patient is tachycardic and restless Did have episodes over night of tachycardia, appears to be Aflutter with RVR Objective Medications Current Medications Medications (Trade) Dose Ordered Sig/Hallie Route Start Time Stop Time Status Last Admin (NS Flush) 2 ml UNSCH PRN IVF 04/04/17 00:00 Propofol 100 ml @ 2.25 mls/hr TITRATE PRN IV 04/04/17 00:15 04/10/17 08:04 (Brethine Inj) 1 mg UNSCH PRN SQ 04/04/17 02:30 (NS Flush) 2 ml UNSCH PRN IV FLUSH 04/04/17 02:30 (NS Flush) 2 ml BID IV FLUSH 04/04/17 09:00 04/10/17 08:04 (Tylenol) 650 mg Q6H PRN PO 04/04/17 02:30 (Morphine Inj) 2 mg Q2H PRN IV PUSH 04/04/17 02:30 (Protonix Inj) 40 mg Q12H IV PUSH 04/04/17 06:00 04/10/17 06:00 (Ativan Inj) 1 mg Q1H PRN IV PUSH 04/04/17 02:30 04/09/17 14:23 (Zofran Inj) 4 mg Q6H PRN IV PUSH 04/04/17 02:30 Miscellaneous Information 1 Q361D XX 04/04/17 02:30 04/04/17 03:00 (Chlorhexidine 2% Cloth) Taper DAILY@04 TOP 04/04/17 04:00 03/31/18 03:59 04/08/17 04:00 (Chlorhexidine 2% Cloth) 3 pack UNSCH PRN TOP 04/04/17 02:30 (Milk Of Magnesia Liq) 30 ml Q12H PRN PO 04/04/17 02:30 (Dulcolax Supp) 10 mg DAILY PRN RECTAL 04/04/17 02:30 (Lactulose Liq) 30 ml DAILY PRN PO 04/04/17 02:30 (Peridex 0.12% Liq) 15 ml BID@08,20 MT 04/04/17 08:00 04/10/17 08:05 Piperacillin Sod/ Tazobactam Sod 50 ml @ 200 mls/hr Q6H IV 04/04/17 04:00 04/10/17 09:36 Pharmacy Profile Note 0 ml @ 0 mls/hr UNSCH OTHER 04/04/17 02:45 Sodium Chloride 1,000 ml @ 0 mls/hr Q0M PRN OTHER 04/04/17 11:36 04/09/17 16:35 Sodium Chloride 1,000 ml @ 200 mls/hr Q5H PRN IV 04/04/17 11:36 Sodium Chloride 1,000 ml @ 0 mls/hr Q0M PRN OTHER 04/04/17 11:36 (Mannitol Inj) 12.5 gm UNSCH PRN IV 04/04/17 11:45 Albumin Human 100 ml @ 60 mls/hr UNSCH PRN IV 04/04/17 11:45 04/04/17 13:53 (NS Flush) 5 ml UNSCH PRN IV FLUSH 04/04/17 11:45 (Heparin Inj) UNSCH PRN .XX 04/04/17 11:45 (Gentamicin (Dialysis) Inj) 20 mg UNSCH PRN OTHER 04/04/17 11:45 (Zofran Inj) 4 mg UNSCH PRN IV PUSH 04/04/17 11:45 (Tylenol) 650 mg UNSCH PRN PO 04/04/17 11:45 04/06/17 23:53 (Benadryl) 25 mg UNSCH PRN PO 04/04/17 11:45 (Nitrostat Sl) 0.4 mg UNSCH PRN SL 04/04/17 11:45 (Catapres) 0.1 mg UNSCH PRN PO 04/04/17 11:45 (Gelfoam 12 Mm/7 Mm Top) 1 foam UNSCH PRN TOP 04/04/17 11:45 04/07/17 13:20 (Epogen Inj) 10,000 units MoWeFr SQ 04/04/17 20:00 04/09/17 20:46 (Aspirin Chew) 81 mg DAILY CHEW 04/05/17 09:00 04/10/17 08:04 (Norvasc) 2.5 mg DAILY PO 04/07/17 09:00 04/10/17 08:04 (Apresoline Inj) 10 mg Q1HR PRN IV PUSH 04/06/17 15:00 (Nitroglycerin 2% Oint) 2 inch Q6HR PRN TOPICAL 04/06/17 15:00 (Beneprotein Powder) 1 pack TID G-TUBE 04/06/17 18:00 04/10/17 08:05 (Albuterol Neb) 2.5 mg Q2HR NEB PRN NEB 04/06/17 15:15 (Colace Liq) 100 mg Q12HR PO 04/06/17 21:00 04/10/17 08:04 (Senna Liq) 8.8 mg BID PO 04/06/17 21:00 04/10/17 08:04 (Miralax) 17 gm BID NG 04/07/17 21:00 04/10/17 08:04 (Lactulose Liq) 30 ml DAILY PO 04/08/17 09:00 04/10/17 08:04 (D50w (Vial) Inj) 50 ml UNSCH PRN IV PUSH 04/07/17 12:30 (Glucagon Inj) 1 mg UNSCH PRN OTHER 04/07/17 12:30 (NovoLIN R SUPPLEMENTAL SCALE) 1 Q6HR SQ 04/07/17 18:00 04/08/17 17:35 Vancomycin HCl 1000 mg/Sodium Chloride 250 ml @ 250 mls/hr WITH DIALYSIS IV 04/09/17 13:00 Future Hold 04/09/17 16:35 (Duoneb Neb) 1 ampule Q6HR NEB NEB 04/08/17 16:30 04/10/17 08:39 Fentanyl Citrate 250 ml @ 5 mls/hr TITRATE PRN IV 04/09/17 15:00 04/09/17 15:12 Vital Signs / I&O Vital Signs Date Time Temp Pulse Resp B/P (MAP) Pulse Ox O2 Delivery O2 Flow Rate FiO2 04/10/17 10:00 119 04/10/17 09:00 116 16 117/68 (84) 96 04/10/17 09:00 45 04/10/17 08:31 95 45 04/10/17 08:00 99.5 113 16 131/65 (87) 97 04/10/17 08:00 50 04/10/17 08:00 113 04/10/17 06:00 100 04/10/17 04:20 93 50 04/10/17 04:00 98.8 92 17 128/62 (84) 92 04/10/17 04:00 50 04/10/17 04:00 92 04/10/17 02:00 92 04/10/17 00:06 94 50 04/10/17 00:00 98.2 80 16 120/63 (82) 98 04/10/17 00:00 93 04/10/17 00:00 50 04/09/17 22:00 85 04/09/17 20:00 83 04/09/17 20:00 50 04/09/17 20:00 99.5 89 15 120/66 (84) 94 04/09/17 19:51 98 50 04/09/17 18:00 76 04/09/17 16:00 114 04/09/17 16:00 98.9 114 16 112/59 (76) 98 04/09/17 16:00 60 04/09/17 15:00 123 18 142/69 (93) 90 04/09/17 14:58 90 60 04/09/17 14:00 104 04/09/17 14:00 104 20 132/82 (99) 93 04/09/17 13:37 50 04/09/17 13:00 132 23 187/102 (130) 96 04/09/17 12:00 45 04/09/17 12:00 97.6 91 17 133/67 (89) 94 04/09/17 12:00 91 04/09/17 11:35 93 45 I/O 04/09/17 04/09/17 04/09/17 04/10/17 04/10/17 04/10/17 07:00 15:00 23:00 07:00 15:00 23:00 Intake Total 359 ml 172 ml 1196 ml 728 ml 92 ml Output Total 325 ml 775.0 ml 150 ml Balance 34 ml 172 ml 421.0 ml 578 ml 92 ml Intake IV Total 184 ml 172 ml 400 ml 583 ml 92 ml Tube Feeding 115 ml 236 ml 145 ml Tube Irrigant 560 ml Other 60 ml Output Urine Total 0 ml 175 ml 0 ml Stool Total 325 ml 500 ml 150 ml Tube Feeding Residual Discard 100.0 ml Physical Exam GENERAL: Intubated SKIN: Warm and dry. HEAD: Atraumatic. Normocephalic. EYES: Pupils equal and round. No scleral icterus. No injection or drainage. ENT: No nasal bleeding or discharge. Mucous membranes pink and moist. NECK: Trachea midline. No JVD. CARDIOVASCULAR: Regular rate and rhythm. RESPIRATORY: No accessory muscle use. Clear to auscultation. Breath sounds equal bilaterally. GASTROINTESTINAL: Abdomen soft, non-tender, nondistended. Hepatic and splenic margins not palpable. MUSCULOSKELETAL: Extremities without clubbing, cyanosis, or edema. No obvious deformities. NEUROLOGICAL: Intubated and sedated Laboratory Laboratory Tests Test 04/10/17 04:00 Blood Urea Nitrogen 25 MG/DL Creatinine 3.60 MG/DL Random Glucose 107 MG/DL Total Protein 5.9 GM/DL Albumin 2.4 GM/DL Calcium Level 8.2 MG/DL Phosphorus Level 1.6 MG/DL Magnesium Level 2.0 MG/DL Alkaline Phosphatase 203 U/L Aspartate Amino Transf (AST/SGOT) 35 U/L Alanine Aminotransferase (ALT/SGPT) 228 U/L Total Bilirubin 2.6 MG/DL Sodium Level 140 MEQ/L Potassium Level 3.5 MEQ/L Chloride Level 100 MEQ/L Carbon Dioxide Level 31.1 MEQ/L Anion Gap 9 MEQ/L Estimat Glomerular Filtration Rate 18 ML/MIN Imaging Last 24 hours Impressions Chest X-Ray 04/10/17 0600 Signed Impressions: Service Date/Time: Monday, April 10, 2017 04:42 - CONCLUSION: 1. Interval increase in infiltrate in the left lung. Diffuse bilateral infiltrates remain most characteristic of pulmonary edema. Jorge Almodovar MD Assessment and Plan Problem List: (1) Hx of CABG ICD Codes: Z95.1 - Presence of aortocoronary bypass graft (2) Cardiac arrest with pulseless electrical activity ICD Codes: I46.9 - Cardiac arrest, cause unspecified Status: Acute (3) Symptomatic bradycardia ICD Codes: R00.1 - Bradycardia, unspecified Status: Acute (4) Hyperkalemia ICD Codes: E87.5 - Hyperkalemia Status: Resolved (5) Shock liver ICD Codes: K72.00 - Acute and subacute hepatic failure without coma (6) ESRD (end stage renal disease) on dialysis ICD Codes: N18.6 - End stage renal disease; Z99.2 - Dependence on renal dialysis Status: Chronic (7) Anemia of renal disease ICD Codes: D63.1 - Anemia in chronic kidney disease Status: Chronic (8) Sepsis due to pneumonia ICD Codes: J18.9 - Pneumonia, unspecified organism; A41.9 - Sepsis, unspecified organism (9) HTN (hypertension) ICD Codes: I10 - Hypertension Status: Chronic Assessment and Plan 1) PEA arrest Possible hypoxic with anemia 2) CABGx2 Trops negative, most likely non-cardiac arrest Con't ASA if possible 3) EF 35-40%, mild MR/TR Possible due to shock, will need to eventually recheck 4) Shock liver 5) Anemia Unsure of cause 6) ESRD on HD 7) Symptomatic bradycardia resolved 8) Thrombocytopenia, most likely due to shock liver Will need to follow Con't ASA as long as Platelets above 50K Jhonathan Blair DO Apr 10, 2017 11:12
--- NOTE | 2017-04-10 15:31 | EKG ---
Date Performed: 04/09/2017 Time Performed: 13:46:52 PTAGE: 56 years EKG: Sinus rhythm with bigeminal PACs Left axis deviation Poor R wave progression - probable normal variant Lateral ST -T changes are nonspecific This tracing can not be compared to the prior tracing, which was Externall y paced with an underlying wide complex rhythm. Abnormal ECG PREVIOUS TRACING : 04/04/2017 08.50 DOCTOR: Cary Conn Interpretating Date/Time 04/10/2017 15:29:18
--- NOTE | 2017-04-10 18:12 | HHI.CCPN ---
Subjective Remarks/Hospital Course 56-year-old male presents via EMS after the patient was coded in the field by the paramedics and had return of spontaneous circulation. According to EMS they received a call for shortness of breath and when they arrived the patient's symptoms progressed. They stated that the patient started of bradycardia down, eventually went into PEA with a bradycardic rhythm. They administered CPR for approximately one and a half minutes and gave the patient 1 mg of epinephrine. They then had return of spontaneous circulation with a bradycardic rhythm in the 30s. They then started pacing the patient in the field and intubated him in the field with a 7.5 endotracheal tube. Prior to arrival EMS states that the patient regained consciousness and was able to follow commands. Upon arrival the patient is intubated. He suffered another PEA arrest in the emergency department, again with the return of spontaneous circulation after 1 cycle of CPR. 04/05/17: Patient remains intubated sedated. Improved neuro exam now following commands when sedation lightened. Remains anuric received hemodialysis yesterday with 1 L removed. FiO2 requirement remains high at 65% with chest x- ray showing bilateral pulmonary edema. PEEP increased to 10, Plan for repeat hemodialysis today. Receiving 1 unit PRBC for hemoglobin of 6.9. Tachycardia resolved. Lactic acid is improved but still elevated at 2.9. Platelet count decreased to 78 most likely DIC. BUN/creatinine 29/3.73 04/06: Resting comfortable in bed. Eyes open to command. Currently afebrile. Currently on fentanyl drip at 200 g an hour. Urine output is minimal. Status post hemodialysis yesterday last 3 L Subjective 04/07: Tmax 100.2. Currently 99.8. Increased tube feed residuals overnight. Check KUB. Bowel regimen increased. Arousable on fentanyl drip. Will transition back to propofol given 1 dose of methylnaloxone today. 04/08: Tmax 99.1. No acute events overnight. Ostomy output approximately 75 cc liquid brown stool. Residuals decreased significantly. 04/09: Afebrile. Patient more restless and agitated today. Patient dyssynchronous with ventilator fentanyl infusion instituted. We'll continue to monitor ostomy stool output. Hemoccult pending. 04/10: Afebrile. Episode of Afib/flutter during the night with resolution. Objective Vital Signs Date Time Temp Pulse Resp B/P (MAP) Pulse Ox O2 Delivery O2 Flow Rate FiO2 04/10/17 18:00 99 04/10/17 16:52 95 40 04/10/17 16:00 99.0 17 139/74 (95) Intake and Output 04/10/17 04/10/17 04/11/17 08:00 16:00 00:00 Intake Total 778 ml 188 ml 977 ml Output Total 150 ml 3000 ml 625 ml Balance 628 ml -2812 ml 352 ml Result Diagram: 04/09/17 0415 04/10/17 0400 Imaging Last Impressions Chest X-Ray 04/06/17 0600 Signed Impressions: Service Date/Time: Thursday, April 06, 2017 02:45 - CONCLUSION: Diffuse severe bilateral airspace consolidation, increased from the prior study. aJn Temple MD Objective Remarks GENERAL 48-year-old male, critically ill currently orotracheally intubated, agitated, synchronous with vent on maximum dose of propofol 50 mics SKIN: Warm and dry. No rash HEAD: Normocephalic. EYES: No scleral icterus. No injection or drainage. NECK: Supple, trachea midline. No JVD or lymphadenopathy. CARDIOVASCULAR: Regular rate and rhythm. S1, S2 no S4. Without murmurs, gallops, or rubs. RESPIRATORY: Breath sounds equal bilaterally. Bilateral scattered crackles, few wheezes GASTROINTESTINAL: Abdomen soft, non-tender, nondistended. Colostomy in place in right lower quadrant, liquid brown stool output MUSCULOSKELETAL: No significant peripheral NEURO EXAM: GCS11T. Pupils are round, reactive to light. 3 mm. Follows commands in all 4 extremities Line: Central Venous Catheter Side: Right Location: Internal, Jugular A/P Assessment and Plan Neuro/Psych: History of peripheral neuropathy Fentanyl infusion discontinued 04/07 and reinstitued 04/09 . Propofol initiated sedation/analgesia while intubated. Goal of RASS -2 Daily sedation vacation once hypoxia improves - Patient has no evidence of anoxic brain injury at this time Holding pregabalin 75 mg twice a day Resp: Acute hypoxemic respiratory failure Pulmonary edema - Intubated for airway protection, and cardiac arrest, now hypoxemic - Underlying pulmonary edema - Continue mechanical ventilation currently on PRBC 16/500/1.2/8/50 Ventilator bundle Albuterol/ipratropium aerosols every 6 hours and albuterol aerosols every 2 hours. Dyspnea - No weaning until hemodynamically stable, hypoxia improved Chest x-ray 04/08-severe diffuse bilateral consolidations right greater than left CVS PEA Cardiac arrest CABG x2 (03/01/2017 at [facility]) with BERG to LAD, SVG to OM1. Coronary artery disease - left circumflex 80%, OM1 90%, LAD 80%, RCA 100% with collaterals Peripheral arterial disease Shock resolved Pulmonary edema - PEA arrest most likely secondary to hypoxia and hyperkalemia no evidence of ACS Temporary pacing discontinued -Echocardiogram EF 35-40%. Questionable left atrial shunt. Mild MR/TR Cardiology Dr. Blair following - Continue aspirin 81 mg daily - EKG and troponin x3 negative - Fluid removal with HD, s/p 1L fluid removed 04/04, repeat hemodialysis per nephrology Home medications metoprolol 50 mg twice a day, enalapril 10 mg daily and amlodipine 10 mg daily. GI: Transaminitis Shock liver History of colostomy Elevated total bilirubin Continue Neutra hep trickle feeds 20 cc daily Pantoprazole 40 mg IV every 12 Docusate sodium/senna liquid twice a day and senna liquid twice a day along with polyethylene glycol twice a day and lactulose daily - Transaminitis secondary to shock to use to improve 1 dose of methylnaltrexone 1 04/07 Alkaline phosphatase elevated, will monitor HEME: Normocytic Anemia requiring transfusion Thrombocytopenia - Transfuse 1 U PRBCs during this hospitalization - Monitor H&H /FEN/renal: ESRD [id number] - Nephrology following Dr. Kennedy and HD per nephrology.IHD 3.5 L off Replace as clinically indicated ID: Probable sepsis/septic shock - Empiric broad-spectrum antibiotic with piperacillin/tazobactam until cultures come back negative - Single dose of vancomycin given Blood cultures 2, sputum and urine 04/04 no growth to date ENDO: Sliding-scale insulin low regimen to maintain euglycemia every 6 hours DVT GI prophylaxis - Teds SCDs - No pharmacological DVT prophylaxis due to severe anemia -Pantoprazole IV twice a day Access - right IJ CVL placed 04/04 by ED physician Dispo: Level 2 Discussed with [employer] MANAGER at bedside Inge Camarena MD Apr 10, 2017 18:12
[2017-04-11] VITALS (28 sets, daily range): BP systolic 102–176; BP diastolic 55–85; PULSE 75–128; RESP 16–27; TEMP 97.3–99.5; O2SAT 92–100
[2017-04-11] MEDS: RESP: ALBUTEROL 2.5 MG/IPRATROPIUM 0.5 MG NEB (SCH) NEB ×4 (03:53→21:26)
[2017-04-11] MEDS: CHLORHEXIDINE GLUCONATE 2 % 1 PACK (2 CLOTHS) TOP SCH (04:00)
[2017-04-11 04:40] LABS: AUTOMATED NEUTROPHIL # 6.1 TH/MM3 (1.8-7.7); BASOPHIL # 0.1 TH/MM3 (0-0.2); BASOPHIL % 0.7 % (0.0-2.0); EOSINOPHIL # 0.2 TH/MM3 (0-0.4); EOSINOPHIL % 3.1 % (0.0-4.0); HEMATOCRIT 24.8 % (39.0-51.0); LYMPH % 8.3 % (9.0-44.0); LYMPHOCYTE # 0.6 TH/MM3 (1.0-4.8); MEAN CELL VOLUME 86.8 FL (80.0-100.0); MEAN CORPUSCULAR HEMOGLOBIN 28.8 PG (27.0-34.0); MEAN CORPUSCULAR HGB CONC 33.2 % (32.0-36.0); MONO % 9.3 % (0.0-8.0); NEUT % 78.6 % (16.0-70.0); PLATELET COUNT 58 TH/MM3 (150-450); RED BLOOD COUNT 2.86 MIL/MM3 (4.50-5.90); WHITE BLOOD COUNT 7.7 TH/MM3 (4.0-11.0)
[2017-04-11 04:50] LABS: HEMO FLAGS AUTO DIFF
[2017-04-11 05:16] LABS: BICARBONATE 31.8 MEQ/L (21.0-32.0); MAGNESIUM 1.9 MG/DL (1.5-2.5); POTASSIUM 3.6 MEQ/L (3.5-5.1)
[2017-04-11] MEDS: PROPOFOL 1000 MG/100 ML INJ 100 ML IV PRN ×4 (05:30→16:14)
[2017-04-11] MEDS: INSULIN NovoLIN REGULAR SUPPLEMENTAL SCALE SQ SCH ×5 (06:00→23:58)
[2017-04-11] MEDS: PANTOPRAZOLE SODIUM 40 MG VIAL IV PUSH SCH ×2 (06:08→17:19)
[2017-04-11] MEDS: fentaNYL DRIP 250 ML IV PRN (06:08)
[2017-04-11 08:04] LABS: BANDS 5 % (0-6); CORRECTED NUCLEATED RBC 1 /100 WBC (0-0); EOSINOPHILS 4 % (0-4); NEUTROPHIL # MANUAL DIFF 6.4 TH/MM3 (1.8-7.7); POLYS (SEG NEUTROPHILS) 78 % (16-70); WBC DIFF SAMPLE 100
[2017-04-11 08:06] LABS: PLATELET ESTIMATE SMEAR LOW (NORMAL); PLATELET MORPHOLOGY NORMAL (NORMAL); SCAN/DIFF FINAL DIFF MANUAL
[2017-04-11] MEDS: ASPIRIN 81 MG CHEW TAB CHEW SCH (08:58)
[2017-04-11] MEDS: amLODIPine BESYLATE 5 MG TAB PO SCH (08:58)
[2017-04-11] MEDS: CHLORHEXIDINE 0.12% (ORAL KIT) 15 ML CUP MT SCH ×2 (08:58→20:32)
[2017-04-11] MEDS: PIPERACIL-TAZO 2.25 GM PREMIX 50 ML IV SCH ×3 (08:58→21:57)
[2017-04-11] MEDS: LACTULOSE SYRUP 20 GM/30 ML CUP PO SCH (08:58)
[2017-04-11] MEDS: POLYETHYLENE GLYCOL 17 GM PKG NG SCH ×2 (08:59→21:00)
[2017-04-11] MEDS: SENNOSIDES SYRUP 8.8 MG/5 ML CUP PO SCH ×2 (08:59→20:33)
[2017-04-11] MEDS: SODIUM CHLORIDE 0.9% FLUSH 10 ML FLUSH IV FLUSH SCH ×2 (08:59→20:32)
[2017-04-11] MEDS: DOCUSATE SODIUM 100 MG/10 ML UDC PO SCH ×2 (08:59→20:32)
[2017-04-11] MEDS: BENEPROTEIN POWDER 1 PACK G-TUBE SCH ×3 (09:00→17:19)
--- NOTE | 2017-04-11 10:12 | PD.CARD.PN ---
Subjective Subjective Remarks Currently sedated, when off sedation patient is tachycardic and restless No significant change from yesterday Objective Medications Current Medications Medications (Trade) Dose Ordered Sig/Hallie Route Start Time Stop Time Status Last Admin (NS Flush) 2 ml UNSCH PRN IVF 04/04/17 00:00 Propofol 100 ml @ 2.25 mls/hr TITRATE PRN IV 04/04/17 00:15 04/11/17 08:58 (Brethine Inj) 1 mg UNSCH PRN SQ 04/04/17 02:30 (NS Flush) 2 ml UNSCH PRN IV FLUSH 04/04/17 02:30 (NS Flush) 2 ml BID IV FLUSH 04/04/17 09:00 04/11/17 08:59 (Tylenol) 650 mg Q6H PRN PO 04/04/17 02:30 (Morphine Inj) 2 mg Q2H PRN IV PUSH 04/04/17 02:30 (Protonix Inj) 40 mg Q12H IV PUSH 04/04/17 06:00 04/11/17 06:08 (Ativan Inj) 1 mg Q1H PRN IV PUSH 04/04/17 02:30 04/09/17 14:23 (Zofran Inj) 4 mg Q6H PRN IV PUSH 04/04/17 02:30 Miscellaneous Information 1 Q361D XX 04/04/17 02:30 04/04/17 03:00 (Chlorhexidine 2% Cloth) Taper DAILY@04 TOP 04/04/17 04:00 03/31/18 03:59 04/08/17 04:00 (Chlorhexidine 2% Cloth) 3 pack UNSCH PRN TOP 04/04/17 02:30 (Milk Of Magnesia Liq) 30 ml Q12H PRN PO 04/04/17 02:30 (Dulcolax Supp) 10 mg DAILY PRN RECTAL 04/04/17 02:30 (Lactulose Liq) 30 ml DAILY PRN PO 04/04/17 02:30 (Peridex 0.12% Liq) 15 ml BID@08,20 MT 04/04/17 08:00 04/11/17 08:58 Piperacillin Sod/ Tazobactam Sod 50 ml @ 200 mls/hr Q6H IV 04/04/17 04:00 04/11/17 08:58 Pharmacy Profile Note 0 ml @ 0 mls/hr UNSCH OTHER 04/04/17 02:45 Sodium Chloride 1,000 ml @ 0 mls/hr Q0M PRN OTHER 04/04/17 11:36 04/09/17 16:35 Sodium Chloride 1,000 ml @ 200 mls/hr Q5H PRN IV 04/04/17 11:36 Sodium Chloride 1,000 ml @ 0 mls/hr Q0M PRN OTHER 04/04/17 11:36 (Mannitol Inj) 12.5 gm UNSCH PRN IV 04/04/17 11:45 Albumin Human 100 ml @ 60 mls/hr UNSCH PRN IV 04/04/17 11:45 04/04/17 13:53 (NS Flush) 5 ml UNSCH PRN IV FLUSH 04/04/17 11:45 (Heparin Inj) UNSCH PRN .XX 04/04/17 11:45 (Gentamicin (Dialysis) Inj) 20 mg UNSCH PRN OTHER 04/04/17 11:45 (Zofran Inj) 4 mg UNSCH PRN IV PUSH 04/04/17 11:45 (Tylenol) 650 mg UNSCH PRN PO 04/04/17 11:45 04/06/17 23:53 (Benadryl) 25 mg UNSCH PRN PO 04/04/17 11:45 (Nitrostat Sl) 0.4 mg UNSCH PRN SL 04/04/17 11:45 (Catapres) 0.1 mg UNSCH PRN PO 04/04/17 11:45 (Gelfoam 12 Mm/7 Mm Top) 1 foam UNSCH PRN TOP 04/04/17 11:45 04/07/17 13:20 (Epogen Inj) 10,000 units MoWeFr SQ 04/04/17 20:00 04/09/17 20:46 (Aspirin Chew) 81 mg DAILY CHEW 04/05/17 09:00 04/11/17 08:58 (Norvasc) 2.5 mg DAILY PO 04/07/17 09:00 04/11/17 08:58 (Apresoline Inj) 10 mg Q1HR PRN IV PUSH 04/06/17 15:00 (Nitroglycerin 2% Oint) 2 inch Q6HR PRN TOPICAL 04/06/17 15:00 (Beneprotein Powder) 1 pack TID G-TUBE 04/06/17 18:00 04/10/17 17:29 (Albuterol Neb) 2.5 mg Q2HR NEB PRN NEB 04/06/17 15:15 (Colace Liq) 100 mg Q12HR PO 04/06/17 21:00 04/10/17 22:11 (Senna Liq) 8.8 mg BID PO 04/06/17 21:00 04/10/17 22:11 (Miralax) 17 gm BID NG 04/07/17 21:00 04/10/17 22:11 (Lactulose Liq) 30 ml DAILY PO 04/08/17 09:00 04/11/17 08:58 (D50w (Vial) Inj) 50 ml UNSCH PRN IV PUSH 04/07/17 12:30 (Glucagon Inj) 1 mg UNSCH PRN OTHER 04/07/17 12:30 (NovoLIN R SUPPLEMENTAL SCALE) 1 Q6HR SQ 04/07/17 18:00 04/10/17 17:29 Vancomycin HCl 1000 mg/Sodium Chloride 250 ml @ 250 mls/hr WITH DIALYSIS IV 04/09/17 13:00 Future Hold 04/09/17 16:35 (Duoneb Neb) 1 ampule Q6HR NEB NEB 04/08/17 16:30 04/11/17 07:58 Fentanyl Citrate 250 ml @ 5 mls/hr TITRATE PRN IV 04/09/17 15:00 04/11/17 06:08 Vital Signs / I&O Vital Signs Date Time Temp Pulse Resp B/P (MAP) Pulse Ox O2 Delivery O2 Flow Rate FiO2 04/11/17 07:54 97 35 04/11/17 04:00 35 04/11/17 04:00 75 04/11/17 04:00 97.3 75 16 114/56 (75) 04/11/17 03:53 95 35 04/11/17 02:00 87 04/11/17 00:09 94 40 04/11/17 00:00 87 04/11/17 00:00 99.0 87 18 126/62 (83) 96 04/11/17 00:00 40 04/10/17 22:00 96 04/10/17 20:19 95 40 04/10/17 20:00 40 04/10/17 20:00 99.2 101 22 139/73 (95) 94 04/10/17 20:00 101 04/10/17 18:00 99 04/10/17 16:52 95 40 04/10/17 16:00 97 04/10/17 16:00 99.0 96 17 139/74 (95) 04/10/17 16:00 40 04/10/17 15:00 96 16 139/65 (89) 94 04/10/17 14:00 93 04/10/17 14:00 93 16 130/68 (88) 95 04/10/17 13:00 85 16 137/72 (93) 96 04/10/17 12:20 94 40 04/10/17 12:00 45 04/10/17 12:00 99.2 81 16 117/62 (80) 96 04/10/17 12:00 81 04/10/17 11:00 100 16 103/64 (77) 96 I/O 04/10/17 04/10/17 04/10/17 04/11/17 04/11/17 04/11/17 07:00 15:00 23:00 07:00 15:00 23:00 Intake Total 728 ml 238 ml 1077 ml 989 ml Output Total 150 ml 3625 ml 150 ml Balance 578 ml 238 ml -2548 ml 839 ml Intake IV Total 583 ml 238 ml 160 ml 766 ml Tube Feeding 145 ml 237 ml 223 ml Tube Irrigant 560 ml Other 120 ml Output Urine Total 0 ml 125 ml 0 ml Stool Total 150 ml 500 ml 150 ml Hemodialysis 3000 ml Physical Exam GENERAL: Intubated SKIN: Warm and dry. HEAD: Atraumatic. Normocephalic. EYES: Pupils equal and round. No scleral icterus. No injection or drainage. ENT: No nasal bleeding or discharge. Mucous membranes pink and moist. NECK: Trachea midline. No JVD. CARDIOVASCULAR: Regular rate and rhythm. RESPIRATORY: No accessory muscle use. Clear to auscultation. Breath sounds equal bilaterally. GASTROINTESTINAL: Abdomen soft, non-tender, nondistended. Hepatic and splenic margins not palpable. MUSCULOSKELETAL: Extremities without clubbing, cyanosis, or edema. No obvious deformities. NEUROLOGICAL: Intubated and sedated Laboratory Laboratory Tests Test 04/11/17 04:00 White Blood Count 7.7 TH/MM3 Red Blood Count 2.86 MIL/MM3 Hemoglobin 8.3 GM/DL Hematocrit 24.8 % Mean Corpuscular Volume 86.8 FL Mean Corpuscular Hemoglobin 28.8 PG Mean Corpuscular Hemoglobin Concent 33.2 % Red Cell Distribution Width 17.0 % Platelet Count 58 TH/MM3 Mean Platelet Volume 9.7 FL Neutrophils (%) (Auto) 78.6 % Lymphocytes (%) (Auto) 8.3 % Monocytes (%) (Auto) 9.3 % Eosinophils (%) (Auto) 3.1 % Basophils (%) (Auto) 0.7 % Neutrophils # (Auto) 6.1 TH/MM3 Lymphocytes # (Auto) 0.6 TH/MM3 Monocytes # (Auto) 0.7 TH/MM3 Eosinophils # (Auto) 0.2 TH/MM3 Basophils # (Auto) 0.1 TH/MM3 CBC Comment AUTO DIFF Differential Total Cells Counted 100 Neutrophils % (Manual) 78 % Band Neutrophils % 5 % Lymphocytes % 9 % Monocytes % 4 % Eosinophils % 4 % Neutrophils # (Manual) 6.4 TH/MM3 Nucleated Red Blood Cells 1 /100 WBC Differential Comment FINAL DIFF MANUAL Platelet Estimate LOW Platelet Morphology Comment NORMAL Blood Urea Nitrogen 24 MG/DL Creatinine 3.12 MG/DL Random Glucose 113 MG/DL Calcium Level 7.9 MG/DL Phosphorus Level 1.8 MG/DL Magnesium Level 1.9 MG/DL Sodium Level 137 MEQ/L Potassium Level 3.6 MEQ/L Chloride Level 98 MEQ/L Carbon Dioxide Level 31.8 MEQ/L Anion Gap 7 MEQ/L Estimat Glomerular Filtration Rate 21 ML/MIN Random Vancomycin Level 22.8 COMMENT Assessment and Plan Problem List: (1) Hx of CABG ICD Codes: Z95.1 - Presence of aortocoronary bypass graft (2) Cardiac arrest with pulseless electrical activity ICD Codes: I46.9 - Cardiac arrest, cause unspecified Status: Acute (3) Symptomatic bradycardia ICD Codes: R00.1 - Bradycardia, unspecified Status: Acute (4) Hyperkalemia ICD Codes: E87.5 - Hyperkalemia Status: Resolved (5) Shock liver ICD Codes: K72.00 - Acute and subacute hepatic failure without coma (6) ESRD (end stage renal disease) on dialysis ICD Codes: N18.6 - End stage renal disease; Z99.2 - Dependence on renal dialysis Status: Chronic (7) Anemia of renal disease ICD Codes: D63.1 - Anemia in chronic kidney disease Status: Chronic (8) Sepsis due to pneumonia ICD Codes: J18.9 - Pneumonia, unspecified organism; A41.9 - Sepsis, unspecified organism (9) HTN (hypertension) ICD Codes: I10 - Hypertension Status: Chronic Assessment and Plan 1) PEA arrest Possible hypoxic with anemia 2) CABGx2 Trops negative, most likely non-cardiac arrest Con't ASA if possible 3) EF 35-40%, mild MR/TR Possible due to shock, will need to eventually recheck 4) Shock liver 5) Anemia Unsure of cause 6) ESRD on HD 7) Symptomatic bradycardia resolved 8) Thrombocytopenia, most likely due to shock liver Will need to follow Con't ASA as long as Platelets above 50K Jhonathan Blair DO Apr 11, 2017 10:12
[2017-04-11] MEDS: ALBUMIN 25% INJ 100 ML IV PRN ×2 (11:03→11:21)
[2017-04-11] MEDS: EPOETIN ALFA 10,000 UNITS/ML VIAL SQ SCH (13:00)
[2017-04-11] MEDS: GELATIN 12 MM/7 MM FOAM TOP PRN ×2 (13:00→13:44)
--- NOTE | 2017-04-11 15:23 | HHI.NPPN ---
Subjective History of Present Illness 56-year-old male with a history of end-stage renal disease, diabetes mellitus, hypertension and relatively recent CABG also has a history at times noncompliance with dialysis. Patient apparently missed his dialysis session yesterday sequently presenting to this institution with increasing shortness of breath noted to have evidence of bradycardia subsequently having a PEA requiring multiple episodes of CPR. There was significant leukocytosis on presentation blood count of 26.9, and elevated lactic acid level of 9 and a chest x-ray revealing bilateral consolidation right greater than left. Should be noted that the patient is not usually a significant fluid stef between dialysis sessions. Unfortunately patient was unable to provide any history of time of consultation as he is sedated on the ventilator. Interval History s/p HD today with 2.5L UF Attempting to wean sedation, but remains intubated (Eugenie Britton) Review of Systems General General Remarks Unobtainable (Eugenie Britton) Objective Data Data 04/11/17 04/12/17 19:00 07:00 Intake Total 300 ml Output Total 2500 ml Balance -2200 ml Intake IV Total 300 ml Hemodialysis 2500 ml Vital Signs Date Time Temp Pulse Resp B/P (MAP) Pulse Ox O2 Delivery O2 Flow Rate FiO2 04/11/17 14:25 100 35 04/11/17 14:00 121 04/11/17 13:30 108 04/11/17 13:00 107 04/11/17 12:30 125 18 120/74 (89) 100 04/11/17 12:15 90 04/11/17 12:00 97.8 87 18 131/63 (85) 100 04/11/17 12:00 87 04/11/17 12:00 35 04/11/17 11:30 100 35 04/11/17 11:30 103 16 110/66 (81) 100 04/11/17 11:00 81 16 102/58 (73) 100 04/11/17 11:00 81 04/11/17 10:50 79 16 104/55 (71) 99 04/11/17 10:00 106 16 104/68 (80) 95 04/11/17 10:00 106 04/11/17 09:00 86 16 133/65 (87) 99 04/11/17 09:00 86 04/11/17 08:00 81 04/11/17 08:00 99.2 81 16 119/60 (79) 98 04/11/17 08:00 35 04/11/17 07:54 97 35 04/11/17 07:00 79 04/11/17 07:00 79 16 105/58 (74) 97 04/11/17 04:00 35 04/11/17 04:00 75 04/11/17 04:00 97.3 75 16 114/56 (75) 04/11/17 03:53 95 35 04/11/17 02:00 87 04/11/17 00:09 94 40 04/11/17 00:00 87 04/11/17 00:00 99.0 87 18 126/62 (83) 96 04/11/17 00:00 40 04/10/17 22:00 96 04/10/17 20:19 95 40 04/10/17 20:00 40 04/10/17 20:00 99.2 101 22 139/73 (95) 94 04/10/17 20:00 101 04/10/17 18:00 99 04/10/17 16:52 95 40 04/10/17 16:00 97 04/10/17 16:00 99.0 96 17 139/74 (95) 04/10/17 16:00 40 (Eugenie Britton) -: 04/11/17 0400 04/11/17 0400 Imaging Last Impressions Chest X-Ray 04/10/17 0600 Signed Impressions: Service Date/Time: Monday, April 10, 2017 04:42 - CONCLUSION: 1. Interval increase in infiltrate in the left lung. Diffuse bilateral infiltrates remain most characteristic of pulmonary edema. Jorge Almodovar MD Abdomen X-Ray 04/07/17 0000 Signed Impressions: Service Date/Time: Friday, April 07, 2017 13:03 - CONCLUSION: 1. Gastrostomy catheter and nasogastric catheter are in place. 2. Nonobstructive bowel gas pattern. Justin Smith MD Additional Information 04/11/17 04/11/17 04/12/17 15:00 23:00 07:00 Intake Total 300 ml Output Total 2500 ml Balance -2200 ml Intake IV Total 300 ml Hemodialysis 2500 ml Medication Review Current Medications Medications (Trade) Dose Ordered Sig/Hallie Route Start Time Stop Time Status Last Admin (NS Flush) 2 ml UNSCH PRN IVF 04/04/17 00:00 Propofol 100 ml @ 2.25 mls/hr TITRATE PRN IV 04/04/17 00:15 04/11/17 13:36 (Brethine Inj) 1 mg UNSCH PRN SQ 04/04/17 02:30 (NS Flush) 2 ml UNSCH PRN IV FLUSH 04/04/17 02:30 (NS Flush) 2 ml BID IV FLUSH 04/04/17 09:00 04/11/17 08:59 (Tylenol) 650 mg Q6H PRN PO 04/04/17 02:30 (Morphine Inj) 2 mg Q2H PRN IV PUSH 04/04/17 02:30 (Protonix Inj) 40 mg Q12H IV PUSH 04/04/17 06:00 04/11/17 06:08 (Ativan Inj) 1 mg Q1H PRN IV PUSH 04/04/17 02:30 04/09/17 14:23 (Zofran Inj) 4 mg Q6H PRN IV PUSH 04/04/17 02:30 Miscellaneous Information 1 Q361D XX 04/04/17 02:30 04/04/17 03:00 (Chlorhexidine 2% Cloth) Taper DAILY@04 TOP 04/04/17 04:00 03/31/18 03:59 04/08/17 04:00 (Chlorhexidine 2% Cloth) 3 pack UNSCH PRN TOP 04/04/17 02:30 (Milk Of Magnesia Liq) 30 ml Q12H PRN PO 04/04/17 02:30 (Dulcolax Supp) 10 mg DAILY PRN RECTAL 04/04/17 02:30 (Lactulose Liq) 30 ml DAILY PRN PO 04/04/17 02:30 (Peridex 0.12% Liq) 15 ml BID@08,20 MT 04/04/17 08:00 04/11/17 08:58 Piperacillin Sod/ Tazobactam Sod 50 ml @ 200 mls/hr Q6H IV 04/04/17 04:00 04/11/17 08:58 Pharmacy Profile Note 0 ml @ 0 mls/hr UNSCH OTHER 04/04/17 02:45 Sodium Chloride 1,000 ml @ 0 mls/hr Q0M PRN OTHER 04/04/17 11:36 04/09/17 16:35 Sodium Chloride 1,000 ml @ 200 mls/hr Q5H PRN IV 04/04/17 11:36 Sodium Chloride 1,000 ml @ 0 mls/hr Q0M PRN OTHER 04/04/17 11:36 (Mannitol Inj) 12.5 gm UNSCH PRN IV 04/04/17 11:45 Albumin Human 100 ml @ 60 mls/hr UNSCH PRN IV 04/04/17 11:45 04/11/17 11:21 (NS Flush) 5 ml UNSCH PRN IV FLUSH 04/04/17 11:45 (Heparin Inj) UNSCH PRN .XX 04/04/17 11:45 (Gentamicin (Dialysis) Inj) 20 mg UNSCH PRN OTHER 04/04/17 11:45 (Zofran Inj) 4 mg UNSCH PRN IV PUSH 04/04/17 11:45 (Tylenol) 650 mg UNSCH PRN PO 04/04/17 11:45 04/06/17 23:53 (Benadryl) 25 mg UNSCH PRN PO 04/04/17 11:45 (Nitrostat Sl) 0.4 mg UNSCH PRN SL 04/04/17 11:45 (Catapres) 0.1 mg UNSCH PRN PO 04/04/17 11:45 (Gelfoam 12 Mm/7 Mm Top) 1 foam UNSCH PRN TOP 04/04/17 11:45 04/11/17 13:44 (Epogen Inj) 10,000 units MoWeFr SQ 04/04/17 20:00 04/11/17 13:00 (Aspirin Chew) 81 mg DAILY CHEW 04/05/17 09:00 04/11/17 08:58 (Norvasc) 2.5 mg DAILY PO 04/07/17 09:00 04/11/17 08:58 (Apresoline Inj) 10 mg Q1HR PRN IV PUSH 04/06/17 15:00 (Nitroglycerin 2% Oint) 2 inch Q6HR PRN TOPICAL 04/06/17 15:00 (Beneprotein Powder) 1 pack TID G-TUBE 04/06/17 18:00 04/11/17 13:00 (Albuterol Neb) 2.5 mg Q2HR NEB PRN NEB 04/06/17 15:15 (Colace Liq) 100 mg Q12HR PO 04/06/17 21:00 04/10/17 22:11 (Senna Liq) 8.8 mg BID PO 04/06/17 21:00 04/10/17 22:11 (Miralax) 17 gm BID NG 04/07/17 21:00 04/10/17 22:11 (Lactulose Liq) 30 ml DAILY PO 04/08/17 09:00 04/11/17 08:58 (D50w (Vial) Inj) 50 ml UNSCH PRN IV PUSH 04/07/17 12:30 (Glucagon Inj) 1 mg UNSCH PRN OTHER 04/07/17 12:30 (NovoLIN R SUPPLEMENTAL SCALE) 1 Q6HR SQ 04/07/17 18:00 04/11/17 13:36 Vancomycin HCl 1000 mg/Sodium Chloride 250 ml @ 250 mls/hr WITH DIALYSIS IV 04/09/17 13:00 Future Hold 04/09/17 16:35 (Duoneb Neb) 1 ampule Q6HR NEB NEB 04/08/17 16:30 04/11/17 14:24 Fentanyl Citrate 250 ml @ 5 mls/hr TITRATE PRN IV 04/09/17 15:00 04/11/17 06:08 (Eugenie Britton) Physical Exam General Appearance: No Acute Distress, Comfortable (Eugenie Britton) Pulmonary Resp Exam: Clear Bilaterally, Diminished Breath Sounds (Eugenie Britton) Cardiology CV Exam: Regular, Normal Sinus Rhythm (Eugenie Britton) Gastrointestinal/Abdomen GI Exam: Soft, Non-Tender (Eugenie Britton) Extremeties Extremities Exam: Moderate Edema (involving extremities.), Pitting Edema Extremeties Remarks 1+ hips and hands. Improving (Eugenie Britton) Neurologic Neuro Exam: Sedated (Eugenie Britton) Assessment/Plan Problem List: (1) ESRD (end stage renal disease) on dialysis ICD Codes: N18.6 - End stage renal disease; Z99.2 - Dependence on renal dialysis Status: Chronic Plan: s/p HD x3 days in a row. Will rest tomorrow and dialyze again on Sunday. Volume status improving. Medications to be adjusted for ESRD. Avoid gadolinium. (2) Sepsis due to pneumonia ICD Codes: J18.9 - Pneumonia, unspecified organism; A41.9 - Sepsis, unspecified organism Plan: Appears to be clinically present. Defer antibiotic therapy to critical care. (3) Anemia of renal disease ICD Codes: D63.1 - Anemia in chronic kidney disease Status: Chronic Plan: Continue Epogen with HD (4) Cardiac arrest with pulseless electrical activity ICD Codes: I46.9 - Cardiac arrest, cause unspecified Status: Acute (5) HTN (hypertension) ICD Codes: I10 - Hypertension Status: Chronic (6) Shock liver ICD Codes: K72.00 - Acute and subacute hepatic failure without coma Plan: Improving. (Eugenie Britton) Plan The exam, history, and the medical decision-making described in the above note were completed with the assistance of the PA-C. I reviewed and agree with the findings presented. I attest that I had a [id number] encounter with the patient on the same day, and personally performed and documented my assessment and findings in the medical record. (David Kennedy MD) Eugenie Britton Apr 11, 2017 15:23 David Kennedy MD Apr 12, 2017 16:28
--- NOTE | 2017-04-11 18:58 | HHI.CCPN ---
Subjective Remarks/Hospital Course 56-year-old male presents via EMS after the patient was coded in the field by the paramedics and had return of spontaneous circulation. According to EMS they received a call for shortness of breath and when they arrived the patient's symptoms progressed. They stated that the patient started of bradycardia down, eventually went into PEA with a bradycardic rhythm. They administered CPR for approximately one and a half minutes and gave the patient 1 mg of epinephrine. They then had return of spontaneous circulation with a bradycardic rhythm in the 30s. They then started pacing the patient in the field and intubated him in the field with a 7.5 endotracheal tube. Prior to arrival EMS states that the patient regained consciousness and was able to follow commands. Upon arrival the patient is intubated. He suffered another PEA arrest in the emergency department, again with the return of spontaneous circulation after 1 cycle of CPR. 04/05/17: Patient remains intubated sedated. Improved neuro exam now following commands when sedation lightened. Remains anuric received hemodialysis yesterday with 1 L removed. FiO2 requirement remains high at 65% with chest x- ray showing bilateral pulmonary edema. PEEP increased to 10, Plan for repeat hemodialysis today. Receiving 1 unit PRBC for hemoglobin of 6.9. Tachycardia resolved. Lactic acid is improved but still elevated at 2.9. Platelet count decreased to 78 most likely DIC. BUN/creatinine 29/3.73 04/06: Resting comfortable in bed. Eyes open to command. Currently afebrile. Currently on fentanyl drip at 200 g an hour. Urine output is minimal. Status post hemodialysis yesterday last 3 L Subjective 04/07: Tmax 100.2. Currently 99.8. Increased tube feed residuals overnight. Check KUB. Bowel regimen increased. Arousable on fentanyl drip. Will transition back to propofol given 1 dose of methylnaloxone today. 04/08: Tmax 99.1. No acute events overnight. Ostomy output approximately 75 cc liquid brown stool. Residuals decreased significantly. 04/09: Afebrile. Patient more restless and agitated today. Patient dyssynchronous with ventilator fentanyl infusion instituted. We'll continue to monitor ostomy stool output. Hemoccult pending. 04/10: Afebrile. Episode of Afib/flutter during the night with resolution. 04/11: Patient became agitated overnight requiring additional sedatives, propofol was added to medication regimen ,now discontinued. Patient tolerating tube feeds, underwent hemodialysis with 2.5 L off today. Objective Vital Signs Date Time Temp Pulse Resp B/P (MAP) Pulse Ox O2 Delivery O2 Flow Rate FiO2 04/11/17 18:00 108 04/11/17 16:43 95 35 04/11/17 16:00 18 135/68 (90) 04/11/17 14:00 99.5 Intake and Output 04/11/17 04/11/17 04/12/17 08:00 16:00 00:00 Intake Total 989 ml 350 ml 782 ml Output Total 150 ml 2500 ml 450 ml Balance 839 ml -2150 ml 332 ml Result Diagram: 04/11/17 0400 04/11/17 0400 Imaging Last Impressions Chest X-Ray 04/06/17 0600 Signed Impressions: Service Date/Time: Thursday, April 06, 2017 02:45 - CONCLUSION: Diffuse severe bilateral airspace consolidation, increased from the prior study. Jan Temple MD Objective Remarks GENERAL 48-year-old male, critically ill currently orotracheally intubated and sedated SKIN: Warm and dry. No rash HEAD: Normocephalic. EYES: No scleral icterus. No injection or drainage. NECK: Supple, trachea midline. No JVD or lymphadenopathy. CARDIOVASCULAR: Regular rate and rhythm. S1, S2 no S4. Without murmurs, gallops, or rubs. RESPIRATORY: Breath sounds equal bilaterally. Bilateral scattered crackles, few wheezes GASTROINTESTINAL: Abdomen soft, non-tender, nondistended. Colostomy in place in right lower quadrant, liquid brown stool output MUSCULOSKELETAL: No significant peripheral NEURO EXAM: GCS11T. Pupils are round, reactive to light. 3 mm. Follows commands in all 4 extremities Line: Central Venous Catheter Side: Right Location: Internal, Jugular A/P Assessment and Plan Neuro/Psych: History of peripheral neuropathy Fentanyl infusion discontinued 04/07 and reinstitued 04/09 . Patient comfortable on fentanyl infusion, propofol now discontinued Goal of RASS -2 Daily sedation vacation once hypoxia improves - Patient has no evidence of anoxic brain injury at this time Holding pregabalin 75 mg twice a day Resp: Acute hypoxemic respiratory failure Pulmonary edema - Intubated for airway protection, and cardiac arrest, now hypoxemic - Underlying pulmonary edema - Continue mechanical ventilation currently on PRBC 16/500/1.2/8/50 Ventilator bundle Albuterol/ipratropium aerosols every 6 hours and albuterol aerosols every 2 hours. Dyspnea - No weaning until hemodynamically stable, until hypoxia improved Chest x-ray 04/10-increase left lung infiltrate CVS PEA Cardiac arrest CABG x2 (03/01/2017 at [facility]) with BERG to LAD, SVG to OM1. Coronary artery disease - left circumflex 80%, OM1 90%, LAD 80%, RCA 100% with collaterals Peripheral arterial disease Shock resolved Pulmonary edema - PEA arrest most likely secondary to hypoxia and hyperkalemia no evidence of ACS Temporary pacing discontinued -Echocardiogram EF 35-40%. Questionable left atrial shunt. Mild MR/TR Cardiology Dr. Blair following - Continue aspirin 81 mg daily - EKG and troponin x3 negative - Fluid removal with HD, s/p 1L fluid removed 04/04, repeat hemodialysis per nephrology Home medications metoprolol 50 mg twice a day, enalapril 10 mg daily and amlodipine 10 mg daily. GI: Transaminitis Shock liver History of colostomy Elevated total bilirubin Continue Neutra hep trickle feeds 20 cc daily Pantoprazole 40 mg IV every 12 Docusate sodium/senna liquid twice a day and senna liquid twice a day along with polyethylene glycol twice a day and lactulose daily - Transaminitis secondary to shock to use to improve 1 dose of methylnaltrexone 1 04/07 Alkaline phosphatase elevated, will monitor HEME: Normocytic Anemia requiring transfusion Thrombocytopenia - Transfuse 1 U PRBCs during this hospitalization - Monitor H&H /FEN/renal: ESRD [id number] - Nephrology following Dr. Kenndey and HD per nephrology.IHD 2.5 L off Replace as clinically indicated ID: Probable sepsis/septic shock - Empiric broad-spectrum antibiotic with piperacillin/tazobactam until cultures come back negative - Single dose of vancomycin given Blood cultures 2, sputum and urine 04/04 no growth to date ENDO: Sliding-scale insulin low regimen to maintain euglycemia every 6 hours DVT GI prophylaxis - Teds SCDs - No pharmacological DVT prophylaxis due to severe anemia -Pantoprazole IV twice a day Access - right IJ CVL placed 04/04 by ED physician Dispo: Level 2 Discussed with SERVICE ADMINISTRATOR at bedside Physician Inge Harrington MD Apr 11, 2017 18:58
[2017-04-11] MEDS: METOPROLOL TARTRATE 50 MG TAB PO SCH (20:33)
[2017-04-11] MEDS: LORazepam 2 MG/ML VIAL IV PUSH PRN (20:35)
[2017-04-12] VITALS (25 sets, daily range): BP systolic 125–174; BP diastolic 64–89; PULSE 85–132; RESP 0–20; TEMP 98–100.6; O2SAT 89–100
[2017-04-12] MEDS: LORazepam 2 MG/ML VIAL IV PUSH PRN ×2 (03:16→14:56)
[2017-04-12] MEDS: fentaNYL DRIP 250 ML IV PRN ×3 (03:48→22:21)
[2017-04-12] MEDS: CHLORHEXIDINE GLUCONATE 2 % 1 PACK (2 CLOTHS) TOP SCH (04:00)
[2017-04-12] MEDS: RESP: ALBUTEROL 2.5 MG/IPRATROPIUM 0.5 MG NEB (SCH) NEB ×3 (04:11→16:13)
[2017-04-12 04:21] LABS: AUTOMATED NEUTROPHIL # 8.1 TH/MM3 (1.8-7.7); BASOPHIL # 0.1 TH/MM3 (0-0.2); BASOPHIL % 0.8 % (0.0-2.0); EOSINOPHIL # 0.1 TH/MM3 (0-0.4); EOSINOPHIL % 1.1 % (0.0-4.0); HEMATOCRIT 27.6 % (39.0-51.0); LYMPH % 4.7 % (9.0-44.0); LYMPHOCYTE # 0.5 TH/MM3 (1.0-4.8); MEAN CELL VOLUME 86.6 FL (80.0-100.0); MEAN CORPUSCULAR HEMOGLOBIN 28.1 PG (27.0-34.0); MEAN CORPUSCULAR HGB CONC 32.4 % (32.0-36.0); MONO % 8.5 % (0.0-8.0); NEUT % 84.9 % (16.0-70.0); PLATELET COUNT 89 TH/MM3 (150-450); RED BLOOD COUNT 3.19 MIL/MM3 (4.50-5.90); RED CELL DISTRIBUTION WIDTH 16.8 % (11.6-17.2); WHITE BLOOD COUNT 9.5 TH/MM3 (4.0-11.0)
[2017-04-12] MEDS: PIPERACIL-TAZO 2.25 GM PREMIX 50 ML IV SCH ×4 (04:24→21:43)
[2017-04-12 04:26] LABS: HEMO FLAGS AUTO DIFF
[2017-04-12 04:54] LABS: BICARBONATE 32.5 MEQ/L (21.0-32.0); MAGNESIUM 1.9 MG/DL (1.5-2.5); POTASSIUM 3.4 MEQ/L (3.5-5.1)
[2017-04-12 05:22] LABS: BANDS 2 % (0-6); EOSINOPHILS 2 % (0-4); MYELOCYTES 1 % (0-0); NEUTROPHIL # MANUAL DIFF 7.8 TH/MM3 (1.8-7.7); PLATELET ESTIMATE SMEAR LOW (NORMAL); PLATELET MORPHOLOGY NORMAL (NORMAL); POLYS (SEG NEUTROPHILS) 79 % (16-70); SCAN/DIFF FINAL DIFF MANUAL; WBC DIFF SAMPLE 100
[2017-04-12 05:24] LABS: STOMATOCYTES 1+ (NORMAL)
--- NOTE | 2017-04-12 05:51 | RADRPT ---
EXAM DATE/TIME: 04/12/2017 04:19 [place] COMPARISON: CHEST SINGLE AP, April 10, 2017, 4:42. INDICATIONS : Shortness of breath, respiratory failure. MEDICAL HISTORY : Hypertension. Congestive heart failure. Diabetes mellitus type II. SURGICAL HISTORY : CABG. ENCOUNTER: Subsequent ACUITY: 1 week PAIN SCORE: Non-responsive. LOCATION: Bilateral chest FINDINGS: A single AP semierect view of the chest was obtained. Endotracheal tube remains in place the right in ternal jugular central venous line and nasogastric tube are unchanged. The patient is status post med tung sternotomy. Diffuse alveolar opacities remain in both lungs. The heart size is within normal limi ts. There is no definite effusion. There are multiple overlying electrocardiogram leads and oxygen tu beto. CONCLUSION: No significant change in diffuse pulmonary infiltrates. Jorge Almodovar MD on April 12, 2017 at 5:46 Board Certified Radiologist. This report was verified electronically.
[2017-04-12] MEDS: INSULIN NovoLIN REGULAR SUPPLEMENTAL SCALE SQ SCH ×3 (06:00→17:33)
[2017-04-12] MEDS: PANTOPRAZOLE SODIUM 40 MG VIAL IV PUSH SCH ×2 (06:10→17:23)
[2017-04-12] MEDS: ASPIRIN 81 MG CHEW TAB CHEW SCH (09:00)
[2017-04-12] MEDS: amLODIPine BESYLATE 5 MG TAB PO SCH (09:00)
[2017-04-12] MEDS: DOCUSATE SODIUM 100 MG/10 ML UDC PO SCH ×2 (09:00→20:46)
[2017-04-12] MEDS: LACTULOSE SYRUP 20 GM/30 ML CUP PO SCH (09:00)
[2017-04-12] MEDS: SENNOSIDES SYRUP 8.8 MG/5 ML CUP PO SCH ×2 (09:00→20:56)
[2017-04-12] MEDS: BENEPROTEIN POWDER 1 PACK G-TUBE SCH ×3 (09:00→17:21)
[2017-04-12] MEDS: POLYETHYLENE GLYCOL 17 GM PKG NG SCH ×2 (09:00→21:00)
[2017-04-12] MEDS: METOPROLOL TARTRATE 50 MG TAB PO SCH ×2 (09:01→20:46)
[2017-04-12] MEDS: SODIUM CHLORIDE 0.9% FLUSH 10 ML FLUSH IV FLUSH SCH ×2 (09:01→20:46)
[2017-04-12] MEDS: CHLORHEXIDINE 0.12% (ORAL KIT) 15 ML CUP MT SCH ×2 (09:02→19:45)
--- NOTE | 2017-04-12 12:25 | PD.CARD.PN ---
Subjective Subjective Remarks Off sedation, patient opens eyes, not following commands No significant change from yesterday Objective Medications Current Medications Medications (Trade) Dose Ordered Sig/Hallie Route Start Time Stop Time Status Last Admin (NS Flush) 2 ml UNSCH PRN IVF 04/04/17 00:00 (Brethine Inj) 1 mg UNSCH PRN SQ 04/04/17 02:30 (NS Flush) 2 ml UNSCH PRN IV FLUSH 04/04/17 02:30 (NS Flush) 2 ml BID IV FLUSH 04/04/17 09:00 04/12/17 09:01 (Tylenol) 650 mg Q6H PRN PO 04/04/17 02:30 (Morphine Inj) 2 mg Q2H PRN IV PUSH 04/04/17 02:30 (Protonix Inj) 40 mg Q12H IV PUSH 04/04/17 06:00 04/12/17 06:10 (Ativan Inj) 1 mg Q1H PRN IV PUSH 04/04/17 02:30 04/12/17 03:16 (Zofran Inj) 4 mg Q6H PRN IV PUSH 04/04/17 02:30 Miscellaneous Information 1 Q361D XX 04/04/17 02:30 04/04/17 03:00 (Chlorhexidine 2% Cloth) Taper DAILY@04 TOP 04/04/17 04:00 03/31/18 03:59 04/08/17 04:00 (Chlorhexidine 2% Cloth) 3 pack UNSCH PRN TOP 04/04/17 02:30 (Milk Of Magnesia Liq) 30 ml Q12H PRN PO 04/04/17 02:30 (Dulcolax Supp) 10 mg DAILY PRN RECTAL 04/04/17 02:30 (Lactulose Liq) 30 ml DAILY PRN PO 04/04/17 02:30 (Peridex 0.12% Liq) 15 ml BID@08,20 MT 04/04/17 08:00 04/12/17 09:02 Piperacillin Sod/ Tazobactam Sod 50 ml @ 200 mls/hr Q6H IV 04/04/17 04:00 04/12/17 09:01 Pharmacy Profile Note 0 ml @ 0 mls/hr UNSCH OTHER 04/04/17 02:45 Sodium Chloride 1,000 ml @ 0 mls/hr Q0M PRN OTHER 04/04/17 11:36 04/09/17 16:35 Sodium Chloride 1,000 ml @ 200 mls/hr Q5H PRN IV 04/04/17 11:36 Sodium Chloride 1,000 ml @ 0 mls/hr Q0M PRN OTHER 04/04/17 11:36 (Mannitol Inj) 12.5 gm UNSCH PRN IV 04/04/17 11:45 Albumin Human 100 ml @ 60 mls/hr UNSCH PRN IV 04/04/17 11:45 04/11/17 11:21 (NS Flush) 5 ml UNSCH PRN IV FLUSH 04/04/17 11:45 (Heparin Inj) UNSCH PRN .XX 04/04/17 11:45 (Gentamicin (Dialysis) Inj) 20 mg UNSCH PRN OTHER 04/04/17 11:45 (Zofran Inj) 4 mg UNSCH PRN IV PUSH 04/04/17 11:45 (Tylenol) 650 mg UNSCH PRN PO 04/04/17 11:45 04/06/17 23:53 (Benadryl) 25 mg UNSCH PRN PO 04/04/17 11:45 (Nitrostat Sl) 0.4 mg UNSCH PRN SL 04/04/17 11:45 (Catapres) 0.1 mg UNSCH PRN PO 04/04/17 11:45 (Gelfoam 12 Mm/7 Mm Top) 1 foam UNSCH PRN TOP 04/04/17 11:45 04/11/17 13:44 (Epogen Inj) 10,000 units MoWeFr SQ 04/04/17 20:00 04/11/17 13:00 (Aspirin Chew) 81 mg DAILY CHEW 04/05/17 09:00 04/12/17 09:00 (Norvasc) 2.5 mg DAILY PO 04/07/17 09:00 04/12/17 09:00 (Apresoline Inj) 10 mg Q1HR PRN IV PUSH 04/06/17 15:00 (Nitroglycerin 2% Oint) 2 inch Q6HR PRN TOPICAL 04/06/17 15:00 (Beneprotein Powder) 1 pack TID G-TUBE 04/06/17 18:00 04/11/17 17:19 (Albuterol Neb) 2.5 mg Q2HR NEB PRN NEB 04/06/17 15:15 (Colace Liq) 100 mg Q12HR PO 04/06/17 21:00 04/11/17 20:32 (Senna Liq) 8.8 mg BID PO 04/06/17 21:00 04/11/17 20:33 (Miralax) 17 gm BID NG 04/07/17 21:00 04/10/17 22:11 (Lactulose Liq) 30 ml DAILY PO 04/08/17 09:00 04/12/17 09:00 (D50w (Vial) Inj) 50 ml UNSCH PRN IV PUSH 04/07/17 12:30 (Glucagon Inj) 1 mg UNSCH PRN OTHER 04/07/17 12:30 (NovoLIN R SUPPLEMENTAL SCALE) 1 Q6HR SQ 04/07/17 18:00 04/11/17 23:58 Vancomycin HCl 1000 mg/Sodium Chloride 250 ml @ 250 mls/hr WITH DIALYSIS IV 04/09/17 13:00 Future Hold 04/09/17 16:35 (Duoneb Neb) 1 ampule Q6HR NEB NEB 04/08/17 16:30 04/12/17 07:56 Fentanyl Citrate 250 ml @ 5 mls/hr TITRATE PRN IV 04/09/17 15:00 04/12/17 03:48 (Lopressor) 50 mg Q12HR PO 04/11/17 21:00 04/12/17 09:01 Vital Signs / I&O Vital Signs Date Time Temp Pulse Resp B/P (MAP) Pulse Ox O2 Delivery O2 Flow Rate FiO2 04/12/17 11:52 98 40 04/12/17 10:00 95 04/12/17 10:00 95 16 150/73 (98) 97 04/12/17 09:00 96 16 159/75 (103) 98 04/12/17 09:00 96 04/12/17 08:00 98.6 92 16 137/75 (95) 100 04/12/17 08:00 92 04/12/17 08:00 40 04/12/17 07:56 96 40 04/12/17 07:00 85 16 131/69 (89) 94 04/12/17 07:00 85 04/12/17 06:00 99 04/12/17 04:12 92 40 04/12/17 04:00 119 04/12/17 04:00 35 04/12/17 04:00 99.6 119 17 125/69 (87) 89 04/12/17 02:00 116 04/12/17 01:31 92 35 04/12/17 00:00 100.6 132 20 158/81 (106) 89 04/12/17 00:00 35 04/12/17 00:00 132 04/11/17 22:00 105 04/11/17 21:27 93 35 04/11/17 20:00 121 04/11/17 20:00 98.8 121 27 176/85 (115) 92 04/11/17 20:00 35 04/11/17 18:00 108 04/11/17 17:00 128 04/11/17 16:43 95 35 04/11/17 16:00 35 04/11/17 16:00 103 18 135/68 (90) 98 04/11/17 16:00 103 04/11/17 15:00 101 04/11/17 15:00 101 18 143/64 (90) 97 04/11/17 14:25 100 35 04/11/17 14:00 99.5 121 19 121/72 (88) 100 04/11/17 14:00 121 04/11/17 13:30 108 17 132/71 (91) 100 04/11/17 13:30 108 04/11/17 13:00 107 19 130/65 (86) 99 04/11/17 13:00 107 04/11/17 12:30 125 18 120/74 (89) 100 I/O 04/11/17 04/11/17 04/11/17 04/12/17 04/12/17 04/12/17 07:00 15:00 23:00 07:00 15:00 23:00 Intake Total 989 ml 300 ml 1101 ml 845.4 ml Output Total 150 ml 2500 ml 450 ml 20 ml Balance 839 ml -2200 ml 651 ml 825.4 ml Intake IV Total 766 ml 300 ml 319 ml 381.4 ml Tube Feeding 223 ml 542 ml 344 ml Other 240 ml 120 ml Output Urine Total 0 ml 50 ml 0 ml Stool Total 150 ml 400 ml 20 ml Hemodialysis 2500 ml Physical Exam GENERAL: Intubated SKIN: Warm and dry. HEAD: Atraumatic. Normocephalic. EYES: Pupils equal and round. No scleral icterus. No injection or drainage. ENT: No nasal bleeding or discharge. Mucous membranes pink and moist. NECK: Trachea midline. No JVD. CARDIOVASCULAR: Regular rate and rhythm. RESPIRATORY: No accessory muscle use. Clear to auscultation. Breath sounds equal bilaterally. GASTROINTESTINAL: Abdomen soft, non-tender, nondistended. Hepatic and splenic margins not palpable. MUSCULOSKELETAL: Extremities without clubbing, cyanosis, or edema. No obvious deformities. NEUROLOGICAL: Intubated Laboratory Laboratory Tests Test 04/12/17 04:00 White Blood Count 9.5 TH/MM3 Red Blood Count 3.19 MIL/MM3 Hemoglobin 8.9 GM/DL Hematocrit 27.6 % Mean Corpuscular Volume 86.6 FL Mean Corpuscular Hemoglobin 28.1 PG Mean Corpuscular Hemoglobin Concent 32.4 % Red Cell Distribution Width 16.8 % Platelet Count 89 TH/MM3 Mean Platelet Volume 8.7 FL Neutrophils (%) (Auto) 84.9 % Lymphocytes (%) (Auto) 4.7 % Monocytes (%) (Auto) 8.5 % Eosinophils (%) (Auto) 1.1 % Basophils (%) (Auto) 0.8 % Neutrophils # (Auto) 8.1 TH/MM3 Lymphocytes # (Auto) 0.5 TH/MM3 Monocytes # (Auto) 0.8 TH/MM3 Eosinophils # (Auto) 0.1 TH/MM3 Basophils # (Auto) 0.1 TH/MM3 CBC Comment AUTO DIFF Differential Total Cells Counted 100 Neutrophils % (Manual) 79 % Band Neutrophils % 2 % Lymphocytes % 8 % Monocytes % 8 % Eosinophils % 2 % Neutrophils # (Manual) 7.8 TH/MM3 Myelocytes 1 % Differential Comment FINAL DIFF MANUAL Platelet Estimate LOW Platelet Morphology Comment NORMAL Polychromasia 2.0 % Basophilic Stippling FAINT Stomatocytes 1+ Blood Urea Nitrogen 22 MG/DL Creatinine 2.92 MG/DL Random Glucose 125 MG/DL Albumin 2.9 GM/DL Calcium Level 8.6 MG/DL Phosphorus Level 1.8 MG/DL Magnesium Level 1.9 MG/DL Sodium Level 140 MEQ/L Potassium Level 3.4 MEQ/L Chloride Level 99 MEQ/L Carbon Dioxide Level 32.5 MEQ/L Anion Gap 9 MEQ/L Estimat Glomerular Filtration Rate 22 ML/MIN Random Vancomycin Level 18.7 COMMENT Imaging Last 24 hours Impressions Chest X-Ray 04/12/17 0600 Signed Impressions: Service Date/Time: April 04:19 - CONCLUSION: No significant change in diffuse pulmonary infiltrates. Jorge Almodovar MD Assessment and Plan Problem List: (1) Hx of CABG ICD Codes: Z95.1 - Presence of aortocoronary bypass graft (2) Cardiac arrest with pulseless electrical activity ICD Codes: I46.9 - Cardiac arrest, cause unspecified Status: Acute (3) Symptomatic bradycardia ICD Codes: R00.1 - Bradycardia, unspecified Status: Acute (4) Hyperkalemia ICD Codes: E87.5 - Hyperkalemia Status: Resolved (5) Shock liver ICD Codes: K72.00 - Acute and subacute hepatic failure without coma (6) ESRD (end stage renal disease) on dialysis ICD Codes: N18.6 - End stage renal disease; Z99.2 - Dependence on renal dialysis Status: Chronic (7) Anemia of renal disease ICD Codes: D63.1 - Anemia in chronic kidney disease Status: Chronic (8) Sepsis due to pneumonia ICD Codes: J18.9 - Pneumonia, unspecified organism; A41.9 - Sepsis, unspecified organism (9) HTN (hypertension) ICD Codes: I10 - Hypertension Status: Chronic Assessment and Plan 1) PEA arrest Possible hypoxic with anemia 2) CABGx2 Trops negative, most likely non-cardiac arrest Con't ASA 3) EF 35-40%, mild MR/TR Possible due to shock, will need to eventually recheck Will wait until after extubated for better imaging 4) Shock liver 5) Anemia Unsure of cause 6) ESRD on HD 7) Symptomatic bradycardia resolved 8) Thrombocytopenia, most likely due to shock liver Will need to follow Con't ASA as long as Platelets above 50K Platelets better today Jhonathan Blair DO Apr 12, 2017 12:25
[2017-04-12] MEDS: METOCLOPRAMIDE HCL 10 MG/2 ML VIAL IV SCH ×2 (14:16→21:44)
--- NOTE | 2017-04-12 16:26 | HHI.NPPN ---
Subjective History of Present Illness 56-year-old male with a history of end-stage renal disease, diabetes mellitus, hypertension and relatively recent CABG also has a history at times noncompliance with dialysis. Patient apparently missed his dialysis session yesterday sequently presenting to this institution with increasing shortness of breath noted to have evidence of bradycardia subsequently having a PEA requiring multiple episodes of CPR. There was significant leukocytosis on presentation blood count of 26.9, and elevated lactic acid level of 9 and a chest x-ray revealing bilateral consolidation right greater than left. Should be noted that the patient is not usually a significant fluid stef between dialysis sessions. Unfortunately patient was unable to provide any history of time of consultation as he is sedated on the ventilator. Interval History Patient still intubated on the ventilator. Review of Systems General General Remarks Unobtainable Objective Data Data 04/12/17 04/13/17 19:00 07:00 Intake Total 250 ml Balance 250 ml Intake IV Total 250 ml Vital Signs Date Time Temp Pulse Resp B/P (MAP) Pulse Ox O2 Delivery O2 Flow Rate FiO2 04/12/17 16:15 100 40 04/12/17 12:00 94 04/12/17 12:00 40 04/12/17 12:00 98.0 94 17 151/76 (101) 96 04/12/17 11:52 98 40 04/12/17 11:00 95 20 160/78 (105) 96 04/12/17 11:00 95 04/12/17 10:00 95 04/12/17 10:00 95 16 150/73 (98) 97 04/12/17 09:00 96 16 159/75 (103) 98 04/12/17 09:00 96 04/12/17 08:00 98.6 92 16 137/75 (95) 100 04/12/17 08:00 92 04/12/17 08:00 40 04/12/17 07:56 96 40 04/12/17 07:00 85 16 131/69 (89) 94 04/12/17 07:00 85 04/12/17 06:00 99 04/12/17 04:12 92 40 04/12/17 04:00 119 04/12/17 04:00 35 04/12/17 04:00 99.6 119 17 125/69 (87) 89 04/12/17 02:00 116 04/12/17 01:31 92 35 04/12/17 00:00 100.6 132 20 158/81 (106) 89 04/12/17 00:00 35 04/12/17 00:00 132 04/11/17 22:00 105 04/11/17 21:27 93 35 04/11/17 20:00 121 04/11/17 20:00 98.8 121 27 176/85 (115) 92 04/11/17 20:00 35 04/11/17 18:00 108 04/11/17 17:00 128 04/11/17 16:43 95 35 -: 04/12/17 0400 04/12/17 0400 Physical Exam General Appearance: No Acute Distress, Comfortable Pulmonary Resp Exam: Clear Bilaterally, Diminished Breath Sounds Cardiology CV Exam: Regular, Normal Sinus Rhythm Gastrointestinal/Abdomen GI Exam: Soft, Non-Tender Extremeties Extremities Exam: Moderate Edema (2+ pitting edema involving hands and arms, one plus pitting edema presacral.), Pitting Edema Neurologic Neuro Exam: Sedated Assessment/Plan Problem List: (1) ESRD (end stage renal disease) on dialysis ICD Codes: N18.6 - End stage renal disease; Z99.2 - Dependence on renal dialysis Status: Chronic Plan: Volume status is much improved however patient remains on the ventilator. Repeat hemodialysis for 3 and half hours tomorrow with fluid goal of about 3.5 kg. Medications to be adjusted for ESRD. Avoid gadolinium. (2) Sepsis due to pneumonia ICD Codes: J18.9 - Pneumonia, unspecified organism; A41.9 - Sepsis, unspecified organism Plan: Appears to be clinically present. Defer antibiotic therapy to critical care. (3) Anemia of renal disease ICD Codes: D63.1 - Anemia in chronic kidney disease Status: Chronic Plan: Continue Epogen with HD (4) Cardiac arrest with pulseless electrical activity ICD Codes: I46.9 - Cardiac arrest, cause unspecified Status: Acute (5) HTN (hypertension) ICD Codes: I10 - Hypertension Status: Chronic (6) Shock liver ICD Codes: K72.00 - Acute and subacute hepatic failure without coma Plan: Improving. David Kennedy MD Apr 12, 2017 16:26
--- NOTE | 2017-04-12 17:59 | HHI.CCPN ---
Subjective Remarks/Hospital Course 56-year-old male presents via EMS after the patient was coded in the field by the paramedics and had return of spontaneous circulation. According to EMS they received a call for shortness of breath and when they arrived the patient's symptoms progressed. They stated that the patient started of bradycardia down, eventually went into PEA with a bradycardic rhythm. They administered CPR for approximately one and a half minutes and gave the patient 1 mg of epinephrine. They then had return of spontaneous circulation with a bradycardic rhythm in the 30s. They then started pacing the patient in the field and intubated him in the field with a 7.5 endotracheal tube. Prior to arrival EMS states that the patient regained consciousness and was able to follow commands. Upon arrival the patient is intubated. He suffered another PEA arrest in the emergency department, again with the return of spontaneous circulation after 1 cycle of CPR. 04/05/17: Patient remains intubated sedated. Improved neuro exam now following commands when sedation lightened. Remains anuric received hemodialysis yesterday with 1 L removed. FiO2 requirement remains high at 65% with chest x- ray showing bilateral pulmonary edema. PEEP increased to 10, Plan for repeat hemodialysis today. Receiving 1 unit PRBC for hemoglobin of 6.9. Tachycardia resolved. Lactic acid is improved but still elevated at 2.9. Platelet count decreased to 78 most likely DIC. BUN/creatinine 29/3.73 04/06: Resting comfortable in bed. Eyes open to command. Currently afebrile. Currently on fentanyl drip at 200 g an hour. Urine output is minimal. Status post hemodialysis yesterday last 3 L Subjective 04/07: Tmax 100.2. Currently 99.8. Increased tube feed residuals overnight. Check KUB. Bowel regimen increased. Arousable on fentanyl drip. Will transition back to propofol given 1 dose of methylnaloxone today. 04/08: Tmax 99.1. No acute events overnight. Ostomy output approximately 75 cc liquid brown stool. Residuals decreased significantly. 04/09: Afebrile. Patient more restless and agitated today. Patient dyssynchronous with ventilator fentanyl infusion instituted. We'll continue to monitor ostomy stool output. Hemoccult pending. 04/10: Afebrile. Episode of Afib/flutter during the night with resolution. 04/11: Patient became agitated overnight requiring additional sedatives, propofol was added to medication regimen ,now discontinued. Patient tolerating tube feeds, underwent hemodialysis with 2.5 L off today. 04/12: Failed CPAP trials, plan for tracheostomy in the near future. Ostomy output, significantly decreased. Objective Vital Signs Date Time Temp Pulse Resp B/P (MAP) Pulse Ox O2 Delivery O2 Flow Rate FiO2 04/12/17 17:00 117 16 136/83 (100) 94 04/12/17 16:15 40 04/12/17 16:00 98.2 Intake and Output 04/12/17 04/12/17 04/13/17 08:00 16:00 00:00 Intake Total 795.4 ml 300 ml Output Total 20 ml Balance 775.4 ml 300 ml Result Diagram: 04/12/17 0400 04/12/17 0400 Imaging Last Impressions Chest X-Ray 04/06/17 0600 Signed Impressions: Service Date/Time: Thursday, April 06, 2017 02:45 - CONCLUSION: Diffuse severe bilateral airspace consolidation, increased from the prior study. Jan Temple MD Objective Remarks GENERAL 48-year-old male, critically ill currently orotracheally intubated and sedated SKIN: Warm and dry. No rash HEAD: Normocephalic. EYES: No scleral icterus. No injection or drainage. NECK: Supple, trachea midline. No JVD or lymphadenopathy. CARDIOVASCULAR: Regular rate and rhythm. S1, S2 no S4. Without murmurs, gallops, or rubs. RESPIRATORY: Breath sounds equal bilaterally. Bilateral scattered crackles, few wheezes GASTROINTESTINAL: Abdomen soft, non-tender, nondistended. Colostomy in place in right lower quadrant, liquid brown stool output MUSCULOSKELETAL: No significant peripheral NEURO EXAM: GCS11T. Pupils are round, reactive to light. 3 mm. Follows commands in all 4 extremities Line: Central Venous Catheter Side: Right Location: Internal, Jugular A/P Assessment and Plan Neuro/Psych: History of peripheral neuropathy Fentanyl infusion discontinued 04/07 and reinstitued 04/09 . Patient comfortable on fentanyl infusion, propofol now discontinued Goal of RASS -2 Daily sedation vacation once hypoxia improves - Patient has no evidence of anoxic brain injury at this time Holding pregabalin 75 mg twice a day Resp: Acute hypoxemic respiratory failure Pulmonary edema - Intubated for airway protection, and cardiac arrest, now hypoxemic - Underlying pulmonary edema - Continue mechanical ventilation currently on PRBC 16/500/1.2/8/50 Ventilator bundle Albuterol/ipratropium aerosols every 6 hours and albuterol aerosols every 2 hours. Dyspnea - No weaning until hemodynamically stable, until hypoxia improved Chest x-ray 04/10-increase left lung infiltrate CVS PEA Cardiac arrest CABG x2 (03/01/2017 at [facility]) with BERG to LAD, SVG to OM1. Coronary artery disease - left circumflex 80%, OM1 90%, LAD 80%, RCA 100% with collaterals Peripheral arterial disease Shock resolved Pulmonary edema - PEA arrest most likely secondary to hypoxia and hyperkalemia no evidence of ACS Temporary pacing discontinued -Echocardiogram EF 35-40%. Questionable left atrial shunt. Mild MR/TR Cardiology Dr. Blair following - Continue aspirin 81 mg daily - EKG and troponin x3 negative - Fluid removal with HD, s/p 1L fluid removed 04/04, repeat hemodialysis per nephrology Home medications metoprolol 50 mg twice a day, enalapril 10 mg daily and amlodipine 10 mg daily. GI: Transaminitis Shock liver History of colostomy Elevated total bilirubin Continue Neutra hep trickle feeds 20 cc daily Pantoprazole 40 mg IV every 12 Docusate sodium/senna liquid twice a day and senna liquid twice a day along with polyethylene glycol twice a day and lactulose daily - Transaminitis secondary to shock to use to improve 1 dose of methylnaltrexone 1 04/07 Alkaline phosphatase elevated, will monitor HEME: Normocytic Anemia requiring transfusion Thrombocytopenia - Transfuse 1 U PRBCs during this hospitalization - Monitor H&H /FEN/renal: ESRD [id number] - Nephrology following Dr. Kennedy and HD per nephrology.IHD 2.5 L off Replace as clinically indicated ID: Probable sepsis/septic shock - Empiric broad-spectrum antibiotic with piperacillin/tazobactam until cultures come back negative - Single dose of vancomycin given Blood cultures 2, sputum and urine 04/04 no growth to date ENDO: Sliding-scale insulin low regimen to maintain euglycemia every 6 hours DVT GI prophylaxis - Teds SCDs - No pharmacological DVT prophylaxis due to severe anemia -Pantoprazole IV twice a day Access - right IJ CVL placed 04/04 by ED physician Dispo: Level 2 Discussed with [employer] [facility]ER at bedside Physician Inge Harrington MD Apr 12, 2017 17:59
[2017-04-13] VITALS (19 sets, daily range): BP systolic 119–172; BP diastolic 63–88; PULSE 78–119; RESP 16–18; TEMP 99.6–100.9; O2SAT 91–100
[2017-04-13] MEDS: LORazepam 2 MG/ML VIAL IV PUSH PRN ×2 (01:14→16:20)
[2017-04-13] MEDS: CHLORHEXIDINE GLUCONATE 2 % 1 PACK (2 CLOTHS) TOP SCH (04:00)
[2017-04-13] MEDS: PIPERACIL-TAZO 2.25 GM PREMIX 50 ML IV SCH ×4 (04:12→21:27)
[2017-04-13] MEDS: METOCLOPRAMIDE HCL 10 MG/2 ML VIAL IV SCH ×3 (05:23→20:47)
[2017-04-13] MEDS: PANTOPRAZOLE SODIUM 40 MG VIAL IV PUSH SCH ×2 (05:23→16:30)
[2017-04-13] MEDS: INSULIN NovoLIN REGULAR SUPPLEMENTAL SCALE SQ SCH ×4 (05:47→16:31)
[2017-04-13] MEDS: CHLORHEXIDINE 0.12% (ORAL KIT) 15 ML CUP MT SCH ×2 (08:00→20:53)
[2017-04-13] MEDS: fentaNYL DRIP 250 ML IV PRN ×2 (08:35→18:43)
[2017-04-13] MEDS: BENEPROTEIN POWDER 1 PACK G-TUBE SCH ×3 (09:00→16:31)
[2017-04-13] MEDS: SENNOSIDES SYRUP 8.8 MG/5 ML CUP PO SCH ×2 (09:00→20:46)
[2017-04-13] MEDS: LACTULOSE SYRUP 20 GM/30 ML CUP PO SCH (09:00)
--- NOTE | 2017-04-13 10:11 | PD.CARD.PN ---
Subjective Subjective Remarks Off sedation, patient opens eyes, not following commands No significant change from yesterday On HD right now Objective Medications Current Medications Medications (Trade) Dose Ordered Sig/Hallie Route Start Time Stop Time Status Last Admin (NS Flush) 2 ml UNSCH PRN IVF 04/04/17 00:00 (Brethine Inj) 1 mg UNSCH PRN SQ 04/04/17 02:30 (NS Flush) 2 ml UNSCH PRN IV FLUSH 04/04/17 02:30 (NS Flush) 2 ml BID IV FLUSH 04/04/17 09:00 04/12/17 20:46 (Tylenol) 650 mg Q6H PRN PO 04/04/17 02:30 (Morphine Inj) 2 mg Q2H PRN IV PUSH 04/04/17 02:30 (Protonix Inj) 40 mg Q12H IV PUSH 04/04/17 06:00 04/13/17 05:23 (Ativan Inj) 1 mg Q1H PRN IV PUSH 04/04/17 02:30 04/13/17 01:14 (Zofran Inj) 4 mg Q6H PRN IV PUSH 04/04/17 02:30 Miscellaneous Information 1 Q361D XX 04/04/17 02:30 04/04/17 03:00 (Chlorhexidine 2% Cloth) Taper DAILY@04 TOP 04/04/17 04:00 03/31/18 03:59 04/08/17 04:00 (Chlorhexidine 2% Cloth) 3 pack UNSCH PRN TOP 04/04/17 02:30 (Milk Of Magnesia Liq) 30 ml Q12H PRN PO 04/04/17 02:30 (Dulcolax Supp) 10 mg DAILY PRN RECTAL 04/04/17 02:30 (Lactulose Liq) 30 ml DAILY PRN PO 04/04/17 02:30 (Peridex 0.12% Liq) 15 ml BID@08,20 MT 04/04/17 08:00 04/12/17 19:45 Piperacillin Sod/ Tazobactam Sod 50 ml @ 200 mls/hr Q6H IV 04/04/17 04:00 04/13/17 04:12 Pharmacy Profile Note 0 ml @ 0 mls/hr UNSCH OTHER 04/04/17 02:45 Sodium Chloride 1,000 ml @ 0 mls/hr Q0M PRN OTHER 04/04/17 11:36 04/09/17 16:35 Sodium Chloride 1,000 ml @ 200 mls/hr Q5H PRN IV 04/04/17 11:36 Sodium Chloride 1,000 ml @ 0 mls/hr Q0M PRN OTHER 04/04/17 11:36 (Mannitol Inj) 12.5 gm UNSCH PRN IV 04/04/17 11:45 Albumin Human 100 ml @ 60 mls/hr UNSCH PRN IV 04/04/17 11:45 04/11/17 11:21 (NS Flush) 5 ml UNSCH PRN IV FLUSH 04/04/17 11:45 (Heparin Inj) UNSCH PRN .XX 04/04/17 11:45 (Gentamicin (Dialysis) Inj) 20 mg UNSCH PRN OTHER 04/04/17 11:45 (Zofran Inj) 4 mg UNSCH PRN IV PUSH 04/04/17 11:45 (Tylenol) 650 mg UNSCH PRN PO 04/04/17 11:45 04/06/17 23:53 (Benadryl) 25 mg UNSCH PRN PO 04/04/17 11:45 (Nitrostat Sl) 0.4 mg UNSCH PRN SL 04/04/17 11:45 (Catapres) 0.1 mg UNSCH PRN PO 04/04/17 11:45 (Gelfoam 12 Mm/7 Mm Top) 1 foam UNSCH PRN TOP 04/04/17 11:45 04/11/17 13:44 (Epogen Inj) 10,000 units MoWeFr SQ 04/04/17 20:00 04/11/17 13:00 (Aspirin Chew) 81 mg DAILY CHEW 04/05/17 09:00 04/12/17 09:00 (Norvasc) 2.5 mg DAILY PO 04/07/17 09:00 04/12/17 09:00 (Apresoline Inj) 10 mg Q1HR PRN IV PUSH 04/06/17 15:00 (Nitroglycerin 2% Oint) 2 inch Q6HR PRN TOPICAL 04/06/17 15:00 (Beneprotein Powder) 1 pack TID G-TUBE 04/06/17 18:00 04/11/17 17:19 (Albuterol Neb) 2.5 mg Q2HR NEB PRN NEB 04/06/17 15:15 (Colace Liq) 100 mg Q12HR PO 04/06/17 21:00 04/12/17 20:46 (Senna Liq) 8.8 mg BID PO 04/06/17 21:00 04/12/17 20:56 (Miralax) 17 gm BID NG 04/07/17 21:00 04/10/17 22:11 (Lactulose Liq) 30 ml DAILY PO 04/08/17 09:00 04/12/17 09:00 (D50w (Vial) Inj) 50 ml UNSCH PRN IV PUSH 04/07/17 12:30 (Glucagon Inj) 1 mg UNSCH PRN OTHER 04/07/17 12:30 (NovoLIN R SUPPLEMENTAL SCALE) 1 Q6HR SQ 04/07/17 18:00 04/11/17 23:58 Vancomycin HCl 1000 mg/Sodium Chloride 250 ml @ 250 mls/hr WITH DIALYSIS IV 04/09/17 13:00 Future hold 04/09/17 16:35 Fentanyl Citrate 250 ml @ 5 mls/hr TITRATE PRN IV 04/09/17 15:00 04/13/17 08:35 (Lopressor) 50 mg Q12HR PO 04/11/17 21:00 04/12/17 20:46 (Reglan Inj) 5 mg Q8HR IV 04/12/17 14:30 04/13/17 05:23 Vital Signs / I&O Vital Signs Date Time Temp Pulse Resp B/P (MAP) Pulse Ox O2 Delivery O2 Flow Rate FiO2 04/13/17 07:56 95 40 04/13/17 06:00 85 04/13/17 04:19 94 40 04/13/17 04:00 99.6 98 16 125/69 (87) 97 04/13/17 04:00 98 04/13/17 04:00 40 04/13/17 02:00 118 04/13/17 01:19 100 40 04/13/17 00:30 100.3 04/13/17 00:00 99.7 119 18 153/82 (105) 91 04/13/17 00:00 119 04/13/17 00:00 40 04/12/17 22:27 92 40 04/12/17 22:00 100 04/12/17 20:13 93 40 04/12/17 20:00 115 04/12/17 20:00 100.4 115 16 147/89 (108) 92 04/12/17 20:00 40 04/12/17 18:00 126 04/12/17 17:00 117 16 136/83 (100) 94 04/12/17 17:00 117 04/12/17 16:15 100 40 04/12/17 16:00 40 04/12/17 16:00 110 04/12/17 16:00 98.2 110 16 128/64 (85) 94 04/12/17 15:00 130 04/12/17 15:00 130 18 174/86 (115) 89 04/12/17 14:00 119 0 152/83 (106) 96 04/12/17 14:00 119 04/12/17 13:00 94 16 155/75 (101) 96 04/12/17 13:00 94 04/12/17 12:00 94 04/12/17 12:00 40 04/12/17 12:00 98.0 94 17 151/76 (101) 96 04/12/17 11:52 98 40 04/12/17 11:00 95 20 160/78 (105) 96 04/12/17 11:00 95 I/O 04/12/17 04/12/17 04/12/17 04/13/17 04/13/17 04/13/17 07:00 15:00 23:00 07:00 15:00 23:00 Intake Total 845.4 ml 300 ml 429 ml 403 ml 25 ml Output Total 20 ml 80.0 ml 10 ml Balance 825.4 ml 300 ml 349.0 ml 393 ml 25 ml Intake Oral 0 ml IV Total 381.4 ml 300 ml 346 ml 251 ml 25 ml Tube Feeding 344 ml 53 ml 62 ml Other 120 ml 30 ml 90 ml Output Urine Total 0 ml 50 ml 0 ml Stool Total 20 ml 30 ml 10 ml Tube Feeding Residual Discard 0 ml Physical Exam GENERAL: Intubated SKIN: Warm and dry. HEAD: Atraumatic. Normocephalic. EYES: Pupils equal and round. No scleral icterus. No injection or drainage. ENT: No nasal bleeding or discharge. Mucous membranes pink and moist. NECK: Trachea midline. No JVD. CARDIOVASCULAR: Regular rate and rhythm. RESPIRATORY: No accessory muscle use. Clear to auscultation. Breath sounds equal bilaterally. GASTROINTESTINAL: Abdomen soft, non-tender, nondistended. Hepatic and splenic margins not palpable. MUSCULOSKELETAL: Extremities without clubbing, cyanosis, or edema. No obvious deformities. NEUROLOGICAL: Intubated Laboratory Laboratory Tests Test 04/13/17 03:45 Creatinine 4.04 MG/DL Estimat Glomerular Filtration Rate 15 ML/MIN Random Vancomycin Level 16.0 COMMENT Assessment and Plan Problem List: (1) Hx of CABG ICD Codes: Z95.1 - Presence of aortocoronary bypass graft (2) Cardiac arrest with pulseless electrical activity ICD Codes: I46.9 - Cardiac arrest, cause unspecified Status: Acute (3) Symptomatic bradycardia ICD Codes: R00.1 - Bradycardia, unspecified Status: Acute (4) Hyperkalemia ICD Codes: E87.5 - Hyperkalemia Status: Resolved (5) Shock liver ICD Codes: K72.00 - Acute and subacute hepatic failure without coma (6) ESRD (end stage renal disease) on dialysis ICD Codes: N18.6 - End stage renal disease; Z99.2 - Dependence on renal dialysis Status: Chronic (7) Anemia of renal disease ICD Codes: D63.1 - Anemia in chronic kidney disease Status: Chronic (8) Sepsis due to pneumonia ICD Codes: J18.9 - Pneumonia, unspecified organism; A41.9 - Sepsis, unspecified organism (9) HTN (hypertension) ICD Codes: I10 - Hypertension Status: Chronic Assessment and Plan 1) PEA arrest Possible hypoxic with anemia 2) CABGx2 Trops negative, most likely non-cardiac arrest Con't ASA 3) EF 35-40%, mild MR/TR Possible due to shock, will need to eventually recheck Will wait until after extubated for better imaging 4) Shock liver 5) Anemia Unsure of cause 6) ESRD on HD 7) Symptomatic bradycardia resolved 8) Thrombocytopenia, most likely due to shock liver Will need to follow Con't ASA as long as Platelets above 50K Platelets better today Jhonathan Blair DO Apr 13, 2017 10:11
--- NOTE | 2017-04-13 14:13 | HHI.NPPN ---
Subjective History of Present Illness 56-year-old male with a history of end-stage renal disease, diabetes mellitus, hypertension and relatively recent CABG also has a history at times noncompliance with dialysis. Patient apparently missed his dialysis session yesterday sequently presenting to this institution with increasing shortness of breath noted to have evidence of bradycardia subsequently having a PEA requiring multiple episodes of CPR. There was significant leukocytosis on presentation blood count of 26.9, and elevated lactic acid level of 9 and a chest x-ray revealing bilateral consolidation right greater than left. Should be noted that the patient is not usually a significant fluid stef between dialysis sessions. Unfortunately patient was unable to provide any history of time of consultation as he is sedated on the ventilator. Interval History Pt seen during HD. Access working well. Has had 3 days of negative fluid balance. Noted failed CPAP trials yesterday (Eugenie Britton) Review of Systems General General Remarks Unobtainable (Eugenie Britton) Objective Data Data 04/13/17 04/14/17 19:00 07:00 Intake Total 25 ml Output Total 0 ml Balance 25 ml IV Total 25 ml Tube Feeding Residual Discard 0 ml Vital Signs Date Time Temp Pulse Resp B/P (MAP) Pulse Ox O2 Delivery O2 Flow Rate FiO2 04/13/17 08:00 101 04/13/17 07:56 95 40 04/13/17 06:00 85 04/13/17 04:19 94 40 04/13/17 04:00 99.6 98 16 125/69 (87) 97 04/13/17 04:00 98 04/13/17 04:00 40 04/13/17 02:00 118 04/13/17 01:19 100 40 04/13/17 00:30 100.3 04/13/17 00:00 99.7 119 18 153/82 (105) 91 04/13/17 00:00 119 04/13/17 00:00 40 04/12/17 22:27 92 40 04/12/17 22:00 100 04/12/17 20:13 93 40 04/12/17 20:00 115 04/12/17 20:00 100.4 115 16 147/89 (108) 92 04/12/17 20:00 40 04/12/17 18:00 126 04/12/17 17:00 117 16 136/83 (100) 94 04/12/17 17:00 117 04/12/17 16:15 100 40 04/12/17 16:00 40 04/12/17 16:00 110 04/12/17 16:00 98.2 110 16 128/64 (85) 94 04/12/17 15:00 130 04/12/17 15:00 130 18 174/86 (115) 89 (Eugenie Britton) -: 04/12/17 0400 04/13/17 0345 Imaging Last Impressions Chest X-Ray 04/12/17 0600 Signed Impressions: Service Date/Time: April 04:19 - CONCLUSION: No significant change in diffuse pulmonary infiltrates. Jorge Almodovar MD Abdomen X-Ray 04/07/17 0000 Signed Impressions: Service Date/Time: Friday, April 07, 2017 13:03 - CONCLUSION: 1. Gastrostomy catheter and nasogastric catheter are in place. 2. Nonobstructive bowel gas pattern. Justin Smith MD Medication Review Current Medications Medications (Trade) Dose Ordered Sig/Hallie Route Start Time Stop Time Status Last Admin (NS Flush) 2 ml UNSCH PRN IVF 04/04/17 00:00 (Brethine Inj) 1 mg UNSCH PRN SQ 04/04/17 02:30 (NS Flush) 2 ml UNSCH PRN IV FLUSH 04/04/17 02:30 (NS Flush) 2 ml BID IV FLUSH 04/04/17 09:00 04/12/17 20:46 (Tylenol) 650 mg Q6H PRN PO 04/04/17 02:30 (Morphine Inj) 2 mg Q2H PRN IV PUSH 04/04/17 02:30 (Protonix Inj) 40 mg Q12H IV PUSH 04/04/17 06:00 04/13/17 05:23 (Ativan Inj) 1 mg Q1H PRN IV PUSH 04/04/17 02:30 04/13/17 01:14 (Zofran Inj) 4 mg Q6H PRN IV PUSH 04/04/17 02:30 Miscellaneous Information 1 Q361D XX 04/04/17 02:30 04/04/17 03:00 (Chlorhexidine 2% Cloth) Taper DAILY@04 TOP 11/29/17 04:00 03/31/18 03:59 04/08/17 04:00 (Chlorhexidine 2% Cloth) 3 pack UNSCH PRN TOP 04/04/17 02:30 (Milk Of Magnesia Liq) 30 ml Q12H PRN PO 04/04/17 02:30 (Dulcolax Supp) 10 mg DAILY PRN RECTAL 04/04/17 02:30 (Lactulose Liq) 30 ml DAILY PRN PO 04/04/17 02:30 (Peridex 0.12% Liq) 15 ml BID@08,20 MT 04/04/17 08:00 04/12/17 19:45 Piperacillin Sod/ Tazobactam Sod 50 ml @ 200 mls/hr Q6H IV 04/04/17 04:00 04/13/17 04:12 Pharmacy Profile Note 0 ml @ 0 mls/hr UNSCH OTHER 04/04/17 02:45 Sodium Chloride 1,000 ml @ 0 mls/hr Q0M PRN OTHER 04/04/17 11:36 04/09/17 16:35 Sodium Chloride 1,000 ml @ 200 mls/hr Q5H PRN IV 04/04/17 11:36 Sodium Chloride 1,000 ml @ 0 mls/hr Q0M PRN OTHER 04/04/17 11:36 (Mannitol Inj) 12.5 gm UNSCH PRN IV 04/04/17 11:45 Albumin Human 100 ml @ 60 mls/hr UNSCH PRN IV 04/04/17 11:45 04/11/17 11:21 (NS Flush) 5 ml UNSCH PRN IV FLUSH 04/04/17 11:45 (Heparin Inj) UNSCH PRN .XX 04/04/17 11:45 (Gentamicin (Dialysis) Inj) 20 mg UNSCH PRN OTHER 04/04/17 11:45 (Zofran Inj) 4 mg UNSCH PRN IV PUSH 04/04/17 11:45 (Tylenol) 650 mg UNSCH PRN PO 04/04/17 11:45 04/06/17 23:53 (Benadryl) 25 mg UNSCH PRN PO 04/04/17 11:45 (Nitrostat Sl) 0.4 mg UNSCH PRN SL 04/04/17 11:45 (Catapres) 0.1 mg UNSCH PRN PO 04/04/17 11:45 (Gelfoam 12 Mm/7 Mm Top) 1 foam UNSCH PRN TOP 04/04/17 11:45 04/11/17 13:44 (Epogen Inj) 10,000 units MoWeFr SQ 04/04/17 20:00 04/11/17 13:00 (Aspirin Chew) 81 mg DAILY CHEW 04/05/17 09:00 04/12/17 09:00 (Norvasc) 2.5 mg DAILY PO 04/07/17 09:00 04/12/17 09:00 (Apresoline Inj) 10 mg Q1HR PRN IV PUSH 04/06/17 15:00 (Nitroglycerin 2% Oint) 2 inch Q6HR PRN TOPICAL 04/06/17 15:00 (Beneprotein Powder) 1 pack TID G-TUBE 04/06/17 18:00 04/11/17 17:19 (Albuterol Neb) 2.5 mg Q2HR NEB PRN NEB 04/06/17 15:15 (Colace Liq) 100 mg Q12HR PO 04/06/17 21:00 04/12/17 20:46 (Senna Liq) 8.8 mg BID PO 04/06/17 21:00 04/12/17 20:56 (Miralax) 17 gm BID NG 04/07/17 21:00 04/10/17 22:11 (Lactulose Liq) 30 ml DAILY PO 04/08/17 09:00 04/12/17 09:00 (D50w (Vial) Inj) 50 ml UNSCH PRN IV PUSH 04/07/17 12:30 (Glucagon Inj) 1 mg UNSCH PRN OTHER 04/07/17 12:30 (NovoLIN R SUPPLEMENTAL SCALE) 1 Q6HR SQ 04/07/17 18:00 04/11/17 23:58 Vancomycin HCl 1000 mg/Sodium Chloride 250 ml @ 250 mls/hr WITH DIALYSIS IV 04/09/17 13:00 Future hold 04/09/17 16:35 Fentanyl Citrate 250 ml @ 5 mls/hr TITRATE PRN IV 04/09/17 15:00 04/13/17 08:35 (Lopressor) 50 mg Q12HR PO 04/11/17 21:00 04/12/17 20:46 (Reglan Inj) 5 mg Q8HR IV 04/12/17 14:30 04/13/17 05:23 (Eugenie Britton) Physical Exam General Appearance: No Acute Distress, Comfortable (Eugenie Britton) Pulmonary Resp Exam: Clear Bilaterally, Diminished Breath Sounds (Eugenie Britton) Cardiology CV Exam: Regular, Normal Sinus Rhythm (Eugenie Britton) Gastrointestinal/Abdomen GI Exam: Soft, Non-Tender (Eugenie Britton) Extremeties Extremities Exam: No Edema (Eugenie Britton) Neurologic Neuro Exam: Sedated (Eugenie Britton) Assessment/Plan Problem List: (1) ESRD (end stage renal disease) on dialysis ICD Codes: N18.6 - End stage renal disease; Z99.2 - Dependence on renal dialysis Status: Chronic Plan: Seen during HD today. Will continue to follow thru the weekend with potential next HD on Sunday. Medications to be adjusted for ESRD. Avoid gadolinium. (2) Sepsis due to pneumonia ICD Codes: J18.9 - Pneumonia, unspecified organism; A41.9 - Sepsis, unspecified organism Plan: Appears to be clinically present. Defer antibiotic therapy to critical care. (3) Anemia of renal disease ICD Codes: D63.1 - Anemia in chronic kidney disease Status: Chronic Plan: Continue Epogen with HD (4) Cardiac arrest with pulseless electrical activity ICD Codes: I46.9 - Cardiac arrest, cause unspecified Status: Acute (5) HTN (hypertension) ICD Codes: I10 - Hypertension Status: Chronic (6) Shock liver ICD Codes: K72.00 - Acute and subacute hepatic failure without coma Plan: Improving. (Eugenie Britton) Plan The exam, history, and the medical decision-making described in the above note were completed with the assistance of the PAJackson. I reviewed and agree with the findings presented. I attest that I had a [id number] encounter with the patient on the same day, and personally performed and documented my assessment and findings in the medical record. (David Kennedy MD) Eugenie Britton Apr 13, 2017 14:13 David Kennedy MD Apr 15, 2017 16:21
[2017-04-13] MEDS: DOCUSATE SODIUM 100 MG/10 ML UDC PO SCH ×2 (15:29→20:46)
[2017-04-13] MEDS: amLODIPine BESYLATE 5 MG TAB PO SCH (15:32)
[2017-04-13] MEDS: ASPIRIN 81 MG CHEW TAB CHEW SCH (15:32)
[2017-04-13] MEDS: METOPROLOL TARTRATE 50 MG TAB PO SCH ×2 (15:33→20:47)
--- NOTE | 2017-04-13 15:50 | HHI.CCPN ---
Subjective Remarks/Hospital Course 56-year-old male presents via EMS after the patient was coded in the field by the paramedics and had return of spontaneous circulation. According to EMS they received a call for shortness of breath and when they arrived the patient's symptoms progressed. They stated that the patient started of bradycardia down, eventually went into PEA with a bradycardic rhythm. They administered CPR for approximately one and a half minutes and gave the patient 1 mg of epinephrine. They then had return of spontaneous circulation with a bradycardic rhythm in the 30s. They then started pacing the patient in the field and intubated him in the field with a 7.5 endotracheal tube. Prior to arrival EMS states that the patient regained consciousness and was able to follow commands. Upon arrival the patient is intubated. He suffered another PEA arrest in the emergency department, again with the return of spontaneous circulation after 1 cycle of CPR. 04/05/17: Patient remains intubated sedated. Improved neuro exam now following commands when sedation lightened. Remains anuric received hemodialysis yesterday with 1 L removed. FiO2 requirement remains high at 65% with chest x- ray showing bilateral pulmonary edema. PEEP increased to 10, Plan for repeat hemodialysis today. Receiving 1 unit PRBC for hemoglobin of 6.9. Tachycardia resolved. Lactic acid is improved but still elevated at 2.9. Platelet count decreased to 78 most likely DIC. BUN/creatinine 29/3.73 04/06: Resting comfortable in bed. Eyes open to command. Currently afebrile. Currently on fentanyl drip at 200 g an hour. Urine output is minimal. Status post hemodialysis yesterday last 3 L Subjective 04/07: Tmax 100.2. Currently 99.8. Increased tube feed residuals overnight. Check KUB. Bowel regimen increased. Arousable on fentanyl drip. Will transition back to propofol given 1 dose of methylnaloxone today. 04/08: Tmax 99.1. No acute events overnight. Ostomy output approximately 75 cc liquid brown stool. Residuals decreased significantly. 04/09: Afebrile. Patient more restless and agitated today. Patient dyssynchronous with ventilator fentanyl infusion instituted. We'll continue to monitor ostomy stool output. Hemoccult pending. 04/10: Afebrile. Episode of Afib/flutter during the night with resolution. 04/11: Patient became agitated overnight requiring additional sedatives, propofol was added to medication regimen ,now discontinued. Patient tolerating tube feeds, underwent hemodialysis with 2.5 L off today. 04/12: Failed CPAP trials, plan for tracheostomy in the near future. Ostomy output, significantly decreased. 04/13: Neuro status unchanged. Patient tolerating tube feeds., th initiation of metoclopramide yesterday. Hemodialysis 3.5 liters off today. Objective Vital Signs Date Time Temp Pulse Resp B/P (MAP) Pulse Ox O2 Delivery O2 Flow Rate FiO2 04/13/17 14:52 93 40 04/13/17 08:00 101 04/13/17 04:00 99.6 16 125/69 (87) Intake and Output 04/13/17 04/13/17 04/14/17 08:00 16:00 00:00 Intake Total 428 ml Output Total 10.0 ml Balance 418.0 ml Result Diagram: 04/12/17 0400 04/13/17 0345 Imaging Last Impressions Chest X-Ray 04/06/17 0600 Signed Impressions: Service Date/Time: Thursday, April 06, 2017 02:45 - CONCLUSION: Diffuse severe bilateral airspace consolidation, increased from the prior study. Jan Temple MD Objective Remarks GENERAL 48-year-old male, critically ill currently orotracheally intubated and sedated SKIN: Warm and dry. No rash HEAD: Normocephalic. EYES: No scleral icterus. No injection or drainage. NECK: Supple, trachea midline. No JVD or lymphadenopathy. CARDIOVASCULAR: Regular rate and rhythm. S1, S2 no S4. Without murmurs, gallops, or rubs. RESPIRATORY: Breath sounds equal bilaterally. Bilateral scattered crackles, few wheezes GASTROINTESTINAL: Abdomen soft, non-tender, nondistended. Colostomy in place in right lower quadrant, liquid brown stool output MUSCULOSKELETAL: No significant peripheral NEURO EXAM: GCS11T. Pupils are round, reactive to light. 3 mm. agitated off sedation Line: Central Venous Catheter Side: Right Location: Internal, Jugular A/P Assessment and Plan Neuro/Psych: History of peripheral neuropathy Fentanyl infusion discontinued 04/09 . Patient comfortable on fentanyl infusion , propofol now discontinued Goal of RASS -2 Daily sedation vacation once hypoxia improves - Patient has no evidence of anoxic brain injury at this time Holding pregabalin 75 mg twice a day Resp: Acute hypoxemic respiratory failure Pulmonary edema - Intubated for airway protection, and cardiac arrest, now hypoxemic - Underlying pulmonary edema - Continue mechanical ventilation currently on PRBC 16/500/1./ Ventilator bundle Albuterol/ipratropium aerosols every 6 hours and albuterol aerosols every 2 hours. Dyspnea - No weaning until hemodynamically stable, until hypoxia improved Chest x-ray 04/10-increase left lung infiltrate CVS PEA Cardiac arrest CABG x2 (03/01/2017 at [facility]) with BERG to LAD, SVG to OM1. Coronary artery disease - left circumflex 80%, OM1 90%, LAD 80%, RCA 100% with collaterals Peripheral arterial disease Shock resolved Pulmonary edema - PEA arrest most likely secondary to hypoxia and hyperkalemia no evidence of ACS Temporary pacing discontinued -Echocardiogram EF 35-40%. Questionable left atrial shunt. Mild MR/TR Cardiology Dr. Blair following - Continue aspirin 81 mg daily - EKG and troponin x3 negative - Fluid removal with HD, s/p 1L fluid removed 04/04, repeat hemodialysis per nephrology Home medications metoprolol 50 mg twice a day, enalapril 10 mg daily and amlodipine 10 mg daily. GI: Transaminitis Shock liver History of colostomy Elevated total bilirubin Continue Neutra hep trickle feeds 20 cc daily Pantoprazole 40 mg IV every 12 Docusate sodium/senna liquid twice a day and senna liquid twice a day along with polyethylene glycol twice a day and lactulose daily - Transaminitis secondary to shock to use to improve 1 dose of methylnaltrexone 1 04/07 Alkaline phosphatase elevated, will monitor HEME: Normocytic Anemia requiring transfusion Thrombocytopenia - Transfuse 1 U PRBCs during this hospitalization - Monitor H&H /FEN/renal: ESRD [id number] - Nephrology following Dr. Kennedy and HD per nephrology.IHD 2.5 L off Replace as clinically indicated ID: Probable sepsis/septic shock - Empiric broad-spectrum antibiotic with piperacillin/tazobactam until cultures come back negative - Single dose of vancomycin given Blood cultures 2, sputum and urine 04/04 no growth to date ENDO: Sliding-scale insulin low regimen to maintain euglycemia every 6 hours DVT GI prophylaxis - Teds SCDs - No pharmacological DVT prophylaxis due to severe anemia -Pantoprazole IV twice a day Access - right IJ CVL placed 04/04 by ED physician Dispo: Level 2 Discussed with COVER CUTTER MACHINE at bedside (Nga) Physician Inge Harrington MD Apr 13, 2017 15:49
[2017-04-13] MEDS: POLYETHYLENE GLYCOL 17 GM PKG NG SCH ×2 (15:59→20:46)
[2017-04-13] MEDS: SODIUM CHLORIDE 0.9% FLUSH 10 ML FLUSH IV FLUSH SCH ×2 (15:59→20:47)
--- NOTE | 2017-04-13 17:27 | PD.WCN.NOT ---
Wound Consult Description: Received consult for wound management of Coccyx, DTI to bilateral buttocks Communicated with: ISHAAN Carrizales 5th floor [place] Recommendation: 1.Please cleanse opened area of deep tissue injury to sacrococcygeal area with normal saline and pat dry gently.May intact portion of deep tissue injury with skin prep and cover with bordered gauze. please spray intact skin with skin prep before applying bordered gauze dressing. Change dressing daily or PRN if saturated or dislodged. 2.Turn patient every 2 hours and PRN for comfort and offloading of pressure from brett prominences. 3. Please obtain [place] airapy bed from environmental or if unavailable please order [place] 4 bed. Additional Information: Patient seen on 5th floor [place] for evaluation of coccyx wound management for DTI on bilateral buttocks around 1715 full note to follow. Tianna Booth [facility] Apr 13, 2017 17:27
[2017-04-13] MEDS: EPOETIN ALFA 10,000 UNITS/ML VIAL SQ SCH (20:53)
[2017-04-14] VITALS (26 sets, daily range): BP systolic 120–188; BP diastolic 65–95; PULSE 75–129; RESP 15–29; TEMP 98.7–100.1; O2SAT 79–98
[2017-04-14] MEDS: hydrALAZINE HCL 20 MG/ML VIAL IV PUSH PRN (00:14)
[2017-04-14] MEDS: LORazepam 2 MG/ML VIAL IV PUSH PRN ×3 (02:20→15:19)
[2017-04-14] MEDS: METOPROLOL TARTRATE 5 MG/5 ML VIAL IV PUSH PRN ×4 (02:30→15:18)
[2017-04-14] MEDS: CHLORHEXIDINE GLUCONATE 2 % 1 PACK (2 CLOTHS) TOP SCH (04:00)
[2017-04-14] MEDS: PIPERACIL-TAZO 2.25 GM PREMIX 50 ML IV SCH ×4 (04:10→20:26)
[2017-04-14 04:42] LABS: HEMATOCRIT 27.7 % (39.0-51.0); MEAN CELL VOLUME 85.9 FL (80.0-100.0); MEAN CORPUSCULAR HEMOGLOBIN 28.4 PG (27.0-34.0); MEAN CORPUSCULAR HGB CONC 33.1 % (32.0-36.0); PLATELET COUNT 201 TH/MM3 (150-450); RED BLOOD COUNT 3.22 MIL/MM3 (4.50-5.90); RED CELL DISTRIBUTION WIDTH 16.8 % (11.6-17.2); REVIEW FLAG FINAL; WHITE BLOOD COUNT 10.3 TH/MM3 (4.0-11.0)
[2017-04-14] MEDS: fentaNYL DRIP 250 ML IV PRN ×2 (05:00→17:19)
[2017-04-14] MEDS: PANTOPRAZOLE SODIUM 40 MG VIAL IV PUSH SCH ×2 (05:00→17:18)
[2017-04-14] MEDS: METOCLOPRAMIDE HCL 10 MG/2 ML VIAL IV SCH ×3 (05:01→20:26)
[2017-04-14 05:04] LABS: POTASSIUM 3.1 MEQ/L (3.5-5.1)
[2017-04-14] MEDS: INSULIN NovoLIN REGULAR SUPPLEMENTAL SCALE SQ SCH ×5 (05:06→23:57)
[2017-04-14] MEDS: SODIUM CHLORIDE 0.9% FLUSH 10 ML FLUSH IV FLUSH SCH ×2 (08:27→20:26)
[2017-04-14] MEDS: BENEPROTEIN POWDER 1 PACK G-TUBE SCH ×3 (08:27→17:18)
[2017-04-14] MEDS: METOPROLOL TARTRATE 50 MG TAB PO SCH ×2 (08:27→20:26)
[2017-04-14] MEDS: SENNOSIDES SYRUP 8.8 MG/5 ML CUP PO SCH ×2 (08:27→20:26)
[2017-04-14] MEDS: ASPIRIN 81 MG CHEW TAB CHEW SCH (08:27)
[2017-04-14] MEDS: LACTULOSE SYRUP 20 GM/30 ML CUP PO SCH (08:27)
[2017-04-14] MEDS: DOCUSATE SODIUM 100 MG/10 ML UDC PO SCH ×2 (08:27→20:26)
[2017-04-14] MEDS: CHLORHEXIDINE 0.12% (ORAL KIT) 15 ML CUP MT SCH ×2 (08:27→21:40)
[2017-04-14] MEDS: amLODIPine BESYLATE 5 MG TAB PO SCH (08:27)
[2017-04-14] MEDS: POLYETHYLENE GLYCOL 17 GM PKG NG SCH ×2 (08:28→20:26)
--- NOTE | 2017-04-14 11:32 | HHI.NPPN ---
Subjective History of Present Illness 56-year-old male with a history of end-stage renal disease, diabetes mellitus, hypertension and relatively recent CABG also has a history at times noncompliance with dialysis. Patient apparently missed his dialysis session yesterday sequently presenting to this institution with increasing shortness of breath noted to have evidence of bradycardia subsequently having a PEA requiring multiple episodes of CPR. There was significant leukocytosis on presentation blood count of 26.9, and elevated lactic acid level of 9 and a chest x-ray revealing bilateral consolidation right greater than left. Should be noted that the patient is not usually a significant fluid stef between dialysis sessions. Unfortunately patient was unable to provide any history of time of consultation as he is sedated on the ventilator. Interval History Remains intubated Eyes open and appears to be a little more responsive today. (Eugenie Britton) Review of Systems General General Remarks Unobtainable (Eugenie Britton) Objective Data Data 04/14/17 04/15/17 19:00 07:00 Output Total 300 ml Balance -300 ml Output Urine Total 300 ml Vital Signs Date Time Temp Pulse Resp B/P (MAP) Pulse Ox O2 Delivery O2 Flow Rate FiO2 04/14/17 10:00 102 04/14/17 08:00 99.9 128 16 147/80 (102) 95 04/14/17 08:00 40 04/14/17 08:00 128 04/14/17 07:55 95 40 04/14/17 06:00 104 04/14/17 04:04 98 40 04/14/17 04:00 98.8 116 16 146/80 (102) 97 04/14/17 04:00 116 04/14/17 04:00 40 04/14/17 02:00 124 04/14/17 00:00 99.2 93 16 165/79 (107) 97 04/14/17 00:00 93 04/14/17 00:00 40 04/13/17 23:24 96 40 04/13/17 22:00 86 04/13/17 20:01 99 40 04/13/17 20:00 78 04/13/17 20:00 40 04/13/17 20:00 99.8 79 16 119/63 (81) 98 04/13/17 18:00 108 04/13/17 16:00 100.9 114 16 164/81 (108) 96 04/13/17 16:00 40 04/13/17 16:00 114 04/13/17 14:52 93 40 04/13/17 14:00 113 04/13/17 12:00 40 04/13/17 12:00 99.8 104 16 172/88 (116) 96 04/13/17 12:00 104 (Eugenie Britton) -: 04/14/17 0410 04/14/17 0410 Imaging Last Impressions Chest X-Ray 04/12/17 0600 Signed Impressions: Service Date/Time: April 04:19 - CONCLUSION: No significant change in diffuse pulmonary infiltrates. Jorge Almodovar MD Abdomen X-Ray 04/07/17 0000 Signed Impressions: Service Date/Time: Friday, April 07, 2017 13:03 - CONCLUSION: 1. Gastrostomy catheter and nasogastric catheter are in place. 2. Nonobstructive bowel gas pattern. Justin Smith MD Additional Information 04/14/17 04/14/17 04/15/17 15:00 23:00 07:00 Output Total 300 ml Balance -300 ml Output Urine Total 300 ml Medication Review Current Medications Medications (Trade) Dose Ordered Sig/Hallie Route Start Time Stop Time Status Last Admin (NS Flush) 2 ml UNSCH PRN IVF 04/04/17 00:00 (Brethine Inj) 1 mg UNSCH PRN SQ 04/04/17 02:30 (NS Flush) 2 ml UNSCH PRN IV FLUSH 04/04/17 02:30 (NS Flush) 2 ml BID IV FLUSH 04/04/17 09:00 04/14/17 08:27 (Tylenol) 650 mg Q6H PRN PO 04/04/17 02:30 (Morphine Inj) 2 mg Q2H PRN IV PUSH 04/04/17 02:30 (Protonix Inj) 40 mg Q12H IV PUSH 04/04/17 06:00 04/14/17 05:00 (Ativan Inj) 1 mg Q1H PRN IV PUSH 04/04/17 02:30 04/14/17 02:20 (Zofran Inj) 4 mg Q6H PRN IV PUSH 04/04/17 02:30 Miscellaneous Information 1 Q361D XX 04/04/17 02:30 04/04/17 03:00 (Chlorhexidine 2% Cloth) Taper DAILY@04 TOP 04/04/17 04:00 03/31/18 03:59 04/08/17 04:00 (Chlorhexidine 2% Cloth) 3 pack UNSCH PRN TOP 04/04/17 02:30 (Milk Of Magnesia Liq) 30 ml Q12H PRN PO 04/04/17 02:30 (Dulcolax Supp) 10 mg DAILY PRN RECTAL 04/04/17 02:30 (Lactulose Liq) 30 ml DAILY PRN PO 04/04/17 02:30 (Peridex 0.12% Liq) 15 ml BID@08,20 MT 04/04/17 08:00 04/14/17 08:27 Piperacillin Sod/ Tazobactam Sod 50 ml @ 200 mls/hr Q6H IV 04/04/17 04:00 04/14/17 09:52 Pharmacy Profile Note 0 ml @ 0 mls/hr UNSCH OTHER 04/04/17 02:45 Sodium Chloride 1,000 ml @ 0 mls/hr Q0M PRN OTHER 04/04/17 11:36 04/09/17 16:35 Sodium Chloride 1,000 ml @ 200 mls/hr Q5H PRN IV 04/04/17 11:36 Sodium Chloride 1,000 ml @ 0 mls/hr Q0M PRN OTHER 04/04/17 11:36 (Mannitol Inj) 12.5 gm UNSCH PRN IV 04/04/17 11:45 Albumin Human 100 ml @ 60 mls/hr UNSCH PRN IV 04/04/17 11:45 04/11/17 11:21 (NS Flush) 5 ml UNSCH PRN IV FLUSH 04/04/17 11:45 (Heparin Inj) UNSCH PRN .XX 04/04/17 11:45 (Gentamicin (Dialysis) Inj) 20 mg UNSCH PRN OTHER 04/04/17 11:45 (Zofran Inj) 4 mg UNSCH PRN IV PUSH 04/04/17 11:45 (Tylenol) 650 mg UNSCH PRN PO 04/04/17 11:45 04/06/17 23:53 (Benadryl) 25 mg UNSCH PRN PO 04/04/17 11:45 (Nitrostat Sl) 0.4 mg UNSCH PRN SL 04/04/17 11:45 (Catapres) 0.1 mg UNSCH PRN PO 04/04/17 11:45 (Gelfoam 12 Mm/7 Mm Top) 1 foam UNSCH PRN TOP 04/04/17 11:45 04/11/17 13:44 (Epogen Inj) 10,000 units MoWeFr SQ 04/04/17 20:00 04/13/17 20:53 (Aspirin Chew) 81 mg DAILY CHEW 04/05/17 09:00 04/14/17 08:27 (Norvasc) 2.5 mg DAILY PO 04/07/17 09:00 04/14/17 08:27 (Apresoline Inj) 10 mg Q1HR PRN IV PUSH 04/06/17 15:00 04/14/17 00:14 (Nitroglycerin 2% Oint) 2 inch Q6HR PRN TOPICAL 04/06/17 15:00 (Beneprotein Powder) 1 pack TID G-TUBE 04/06/17 18:00 04/14/17 08:27 (Albuterol Neb) 2.5 mg Q2HR NEB PRN NEB 04/06/17 15:15 (Colace Liq) 100 mg Q12HR PO 04/06/17 21:00 04/14/17 08:27 (Senna Liq) 8.8 mg BID PO 04/06/17 21:00 04/14/17 08:27 (Miralax) 17 gm BID NG 04/07/17 21:00 04/14/17 08:28 (Lactulose Liq) 30 ml DAILY PO 04/08/17 09:00 04/14/17 08:27 (D50w (Vial) Inj) 50 ml UNSCH PRN IV PUSH 04/07/17 12:30 (Glucagon Inj) 1 mg UNSCH PRN OTHER 04/07/17 12:30 (NovoLIN R SUPPLEMENTAL SCALE) 1 Q6HR SQ 04/07/17 18:00 04/11/17 23:58 Vancomycin HCl 1000 mg/Sodium Chloride 250 ml @ 250 mls/hr WITH DIALYSIS IV 04/09/17 13:00 Future hold 04/09/17 16:35 Fentanyl Citrate 250 ml @ 5 mls/hr TITRATE PRN IV 04/09/17 15:00 04/14/17 05:00 (Lopressor) 50 mg Q12HR PO 04/11/17 21:00 04/14/17 08:27 (Reglan Inj) 5 mg Q8HR IV 04/12/17 14:30 04/14/17 05:01 (Lopressor Inj) 5 mg Q5M PRN IV PUSH 04/14/17 02:30 04/14/17 08:28 (Eugenie Britton) Physical Exam General Appearance: No Acute Distress, Comfortable (Eugenie Britton) Pulmonary Resp Exam: Clear Bilaterally, Diminished Breath Sounds (Eugenie Britton) Cardiology CV Exam: Regular, Normal Sinus Rhythm (Eugenie Britton) Gastrointestinal/Abdomen GI Exam: Soft, Non-Tender (Eugenie Britton) Extremeties Extremities Exam: Moderate Edema (in upper extrmities) (Eugenie Britton) Neurologic Neuro Exam: Sedated (Eugenie Britton) Assessment/Plan Problem List: (1) ESRD (end stage renal disease) on dialysis ICD Codes: N18.6 - End stage renal disease; Z99.2 - Dependence on renal dialysis Status: Chronic Plan: Volume status improved Potential next HD on Sunday. Medications to be adjusted for ESRD. Avoid gadolinium. (2) Sepsis due to pneumonia ICD Codes: J18.9 - Pneumonia, unspecified organism; A41.9 - Sepsis, unspecified organism Plan: Appears to be clinically present. Defer antibiotic therapy to critical care. (3) Anemia of renal disease ICD Codes: D63.1 - Anemia in chronic kidney disease Status: Chronic Plan: Continue Epogen with HD (4) Cardiac arrest with pulseless electrical activity ICD Codes: I46.9 - Cardiac arrest, cause unspecified Status: Acute (5) HTN (hypertension) ICD Codes: I10 - Hypertension Status: Chronic (6) Shock liver ICD Codes: K72.00 - Acute and subacute hepatic failure without coma Plan: Improving. (Eugenie Britton) Plan The exam, history, and the medical decision-making described in the above note were completed with the assistance of the ENO[facility]. I reviewed and agree with the findings presented. (David Kennedy MD) Eugenie Britton Apr 14, 2017 11:32 David Kennedy MD Apr 15, 2017 16:21
[2017-04-14] MEDS ORDERED: POTASSIUM CHLORIDE 25 MEQ EFFERVESCENT TAB PO ONE (11:45)
[2017-04-14] MEDS: SODIUM CHLORIDE 0.9% FLUSH 10 ML FLUSH IV FLUSH PRN ×4 (11:54→17:19)
[2017-04-14] MEDS: MORPHINE SULFATE 4 MG/ML INJ IV PUSH PRN ×2 (12:25→15:19)
--- NOTE | 2017-04-14 13:03 | PD.CARD.PN ---
Subjective Subjective Remarks Off sedation, patient opens eyes, following commands Objective Medications Current Medications Medications (Trade) Dose Ordered Sig/Hallie Route Start Time Stop Time Status Last Admin (NS Flush) 2 ml UNSCH PRN IVF 04/04/17 00:00 (Brethine Inj) 1 mg UNSCH PRN SQ 04/04/17 02:30 (NS Flush) 2 ml UNSCH PRN IV FLUSH 04/04/17 02:30 04/14/17 12:26 (NS Flush) 2 ml BID IV FLUSH 04/04/17 09:00 04/14/17 08:27 (Tylenol) 650 mg Q6H PRN PO 04/04/17 02:30 (Morphine Inj) 2 mg Q2H PRN IV PUSH 04/04/17 02:30 04/14/17 12:25 (Protonix Inj) 40 mg Q12H IV PUSH 04/04/17 06:00 04/14/17 05:00 (Ativan Inj) 1 mg Q1H PRN IV PUSH 04/04/17 02:30 04/14/17 12:25 (Zofran Inj) 4 mg Q6H PRN IV PUSH 04/04/17 02:30 Miscellaneous Information 1 Q361D XX 04/04/17 02:30 04/04/17 03:00 (Chlorhexidine 2% Cloth) Taper DAILY@04 TOP 04/04/17 04:00 03/31/18 03:59 04/08/17 04:00 (Chlorhexidine 2% Cloth) 3 pack UNSCH PRN TOP 04/04/17 02:30 (Milk Of Magnesia Liq) 30 ml Q12H PRN PO 04/04/17 02:30 (Dulcolax Supp) 10 mg DAILY PRN RECTAL 04/04/17 02:30 (Lactulose Liq) 30 ml DAILY PRN PO 04/04/17 02:30 (Peridex 0.12% Liq) 15 ml BID@08,20 MT 04/04/17 08:00 04/14/17 08:27 Piperacillin Sod/ Tazobactam Sod 50 ml @ 200 mls/hr Q6H IV 04/04/17 04:00 04/14/17 09:52 Pharmacy Profile Note 0 ml @ 0 mls/hr UNSCH OTHER 04/04/17 02:45 Sodium Chloride 1,000 ml @ 0 mls/hr Q0M PRN OTHER 04/04/17 11:36 04/09/17 16:35 Sodium Chloride 1,000 ml @ 200 mls/hr Q5H PRN IV 04/04/17 11:36 Sodium Chloride 1,000 ml @ 0 mls/hr Q0M PRN OTHER 04/04/17 11:36 (Mannitol Inj) 12.5 gm UNSCH PRN IV 04/04/17 11:45 Albumin Human 100 ml @ 60 mls/hr UNSCH PRN IV 04/04/17 11:45 04/11/17 11:21 (NS Flush) 5 ml UNSCH PRN IV FLUSH 04/04/17 11:45 (Heparin Inj) UNSCH PRN .XX 04/04/17 11:45 (Gentamicin (Dialysis) Inj) 20 mg UNSCH PRN OTHER 04/04/17 11:45 (Zofran Inj) 4 mg UNSCH PRN IV PUSH 04/04/17 11:45 (Tylenol) 650 mg UNSCH PRN PO 04/04/17 11:45 04/06/17 23:53 (Benadryl) 25 mg UNSCH PRN PO 04/04/17 11:45 (Nitrostat Sl) 0.4 mg UNSCH PRN SL 04/04/17 11:45 (Catapres) 0.1 mg UNSCH PRN PO 04/04/17 11:45 (Gelfoam 12 Mm/7 Mm Top) 1 foam UNSCH PRN TOP 04/04/17 11:45 04/11/17 13:44 (Epogen Inj) 10,000 units MoWeFr SQ 04/04/17 20:00 04/13/17 20:53 (Aspirin Chew) 81 mg DAILY CHEW 04/05/17 09:00 04/14/17 08:27 (Norvasc) 2.5 mg DAILY PO 04/07/17 09:00 04/14/17 08:27 (Apresoline Inj) 10 mg Q1HR PRN IV PUSH 04/06/17 15:00 04/14/17 00:14 (Nitroglycerin 2% Oint) 2 inch Q6HR PRN TOPICAL 04/06/17 15:00 (Beneprotein Powder) 1 pack TID G-TUBE 04/06/17 18:00 04/14/17 11:54 (Albuterol Neb) 2.5 mg Q2HR NEB PRN NEB 04/06/17 15:15 (Colace Liq) 100 mg Q12HR PO 04/06/17 21:00 04/14/17 08:27 (Senna Liq) 8.8 mg BID PO 04/06/17 21:00 04/14/17 08:27 (Miralax) 17 gm BID NG 04/07/17 21:00 04/14/17 08:28 (Lactulose Liq) 30 ml DAILY PO 04/08/17 09:00 04/14/17 08:27 (D50w (Vial) Inj) 50 ml UNSCH PRN IV PUSH 04/07/17 12:30 (Glucagon Inj) 1 mg UNSCH PRN OTHER 04/07/17 12:30 (NovoLIN R SUPPLEMENTAL SCALE) 1 Q6HR SQ 04/07/17 18:00 04/14/17 11:53 Vancomycin HCl 1000 mg/Sodium Chloride 250 ml @ 250 mls/hr WITH DIALYSIS IV 04/09/17 13:00 Future hold 04/09/17 16:35 Fentanyl Citrate 250 ml @ 5 mls/hr TITRATE PRN IV 04/09/17 15:00 04/14/17 05:00 (Lopressor) 50 mg Q12HR PO 04/11/17 21:00 04/14/17 08:27 (Reglan Inj) 5 mg Q8HR IV 04/12/17 14:30 04/14/17 05:01 (Lopressor Inj) 5 mg Q5M PRN IV PUSH 04/14/17 02:30 04/14/17 11:54 Vital Signs / I&O Vital Signs Date Time Temp Pulse Resp B/P (MAP) Pulse Ox O2 Delivery O2 Flow Rate FiO2 04/14/17 12:29 18 04/14/17 12:11 40 04/14/17 12:03 92 40 04/14/17 12:00 40 04/14/17 12:00 128 04/14/17 12:00 100.1 128 18 154/89 (110) 92 04/14/17 11:00 109 16 146/70 (95) 97 04/14/17 10:00 102 04/14/17 10:00 120 15 150/82 (104) 94 04/14/17 09:00 121 16 145/75 (98) 97 04/14/17 08:00 99.9 128 16 147/80 (102) 95 04/14/17 08:00 40 04/14/17 08:00 128 04/14/17 07:55 95 40 04/14/17 06:00 104 04/14/17 04:04 98 40 04/14/17 04:00 98.8 116 16 146/80 (102) 97 04/14/17 04:00 116 04/14/17 04:00 40 04/14/17 02:00 124 04/14/17 00:00 99.2 93 16 165/79 (107) 97 04/14/17 00:00 93 04/14/17 00:00 40 04/13/17 23:24 96 40 04/13/17 22:00 86 04/13/17 20:01 99 40 04/13/17 20:00 78 04/13/17 20:00 40 04/13/17 20:00 99.8 79 16 119/63 (81) 98 04/13/17 18:00 108 04/13/17 16:00 100.9 114 16 164/81 (108) 96 04/13/17 16:00 40 04/13/17 16:00 114 04/13/17 14:52 93 40 04/13/17 14:00 113 I/O 04/13/17 04/13/17 04/13/17 04/14/17 04/14/17 04/14/17 07:00 15:00 23:00 07:00 15:00 23:00 Intake Total 403 ml 175 ml 858 ml 645 ml Output Total 10 ml 0 ml 50 ml 300 ml Balance 393 ml 175 ml 858 ml 595 ml -300 ml Intake Oral 0 ml IV Total 251 ml 175 ml 200 ml 325 ml Tube Feeding 62 ml 120 ml Platelets 598 ml Tube Irrigant 200 ml Other 90 ml 60 ml Output Urine Total 0 ml 300 ml Stool Total 10 ml 50 ml Tube Feeding Residual Discard 0 ml Physical Exam GENERAL: Intubated SKIN: Warm and dry. HEAD: Atraumatic. Normocephalic. EYES: Pupils equal and round. No scleral icterus. No injection or drainage. ENT: No nasal bleeding or discharge. Mucous membranes pink and moist. NECK: Trachea midline. No JVD. CARDIOVASCULAR: Regular rate and rhythm. RESPIRATORY: No accessory muscle use. Clear to auscultation. Breath sounds equal bilaterally. GASTROINTESTINAL: Abdomen soft, non-tender, nondistended. Hepatic and splenic margins not palpable. MUSCULOSKELETAL: Extremities without clubbing, cyanosis, or edema. No obvious deformities. NEUROLOGICAL: Intubated Laboratory Laboratory Tests Test 04/14/17 04:10 White Blood Count 10.3 TH/MM3 Red Blood Count 3.22 MIL/MM3 Hemoglobin 9.1 GM/DL Hematocrit 27.7 % Mean Corpuscular Volume 85.9 FL Mean Corpuscular Hemoglobin 28.4 PG Mean Corpuscular Hemoglobin Concent 33.1 % Red Cell Distribution Width 16.8 % Platelet Count 201 TH/MM3 Mean Platelet Volume 8.9 FL Blood Urea Nitrogen 29 MG/DL Creatinine 3.41 MG/DL Random Glucose 132 MG/DL Albumin 2.5 GM/DL Calcium Level 8.6 MG/DL Phosphorus Level 2.0 MG/DL Magnesium Level 2.0 MG/DL Sodium Level 140 MEQ/L Potassium Level 3.1 MEQ/L Chloride Level 99 MEQ/L Carbon Dioxide Level 31.0 MEQ/L Anion Gap 10 MEQ/L Estimat Glomerular Filtration Rate 19 ML/MIN Random Vancomycin Level 12.6 COMMENT Assessment and Plan Problem List: (1) Hx of CABG ICD Codes: Z95.1 - Presence of aortocoronary bypass graft (2) Cardiac arrest with pulseless electrical activity ICD Codes: I46.9 - Cardiac arrest, cause unspecified Status: Acute (3) Symptomatic bradycardia ICD Codes: R00.1 - Bradycardia, unspecified Status: Acute (4) Hyperkalemia ICD Codes: E87.5 - Hyperkalemia Status: Resolved (5) Shock liver ICD Codes: K72.00 - Acute and subacute hepatic failure without coma (6) ESRD (end stage renal disease) on dialysis ICD Codes: N18.6 - End stage renal disease; Z99.2 - Dependence on renal dialysis Status: Chronic (7) Anemia of renal disease ICD Codes: D63.1 - Anemia in chronic kidney disease Status: Chronic (8) Sepsis due to pneumonia ICD Codes: J18.9 - Pneumonia, unspecified organism; A41.9 - Sepsis, unspecified organism (9) HTN (hypertension) ICD Codes: I10 - Hypertension Status: Chronic Assessment and Plan 1) PEA arrest Possible hypoxic with anemia 2) CABGx2 Trops negative, most likely non-cardiac arrest Con't ASA 3) EF 35-40%, mild MR/TR Possible due to shock, will need to eventually recheck Will wait until after extubated for better imaging 4) Shock liver 5) Anemia Unsure of cause 6) ESRD on HD 7) Symptomatic bradycardia resolved 8) Thrombocytopenia, most likely due to shock liver Will need to follow Con't ASA as long as Platelets above 50K 9) Sinus tachycardia Most likely due to overall illness Jhonathan Blair DO Apr 14, 2017 13:03
--- NOTE | 2017-04-14 17:38 | HHI.CCPN ---
Subjective Remarks/Hospital Course 56-year-old male presents via EMS after the patient was coded in the field by the paramedics and had return of spontaneous circulation. According to EMS they received a call for shortness of breath and when they arrived the patient's symptoms progressed. They stated that the patient started of bradycardia down, eventually went into PEA with a bradycardic rhythm. They administered CPR for approximately one and a half minutes and gave the patient 1 mg of epinephrine. They then had return of spontaneous circulation with a bradycardic rhythm in the 30s. They then started pacing the patient in the field and intubated him in the field with a 7.5 endotracheal tube. Prior to arrival EMS states that the patient regained consciousness and was able to follow commands. Upon arrival the patient is intubated. He suffered another PEA arrest in the emergency department, again with the return of spontaneous circulation after 1 cycle of CPR. 04/05/17: Patient remains intubated sedated. Improved neuro exam now following commands when sedation lightened. Remains anuric received hemodialysis yesterday with 1 L removed. FiO2 requirement remains high at 65% with chest x- ray showing bilateral pulmonary edema. PEEP increased to 10, Plan for repeat hemodialysis today. Receiving 1 unit PRBC for hemoglobin of 6.9. Tachycardia resolved. Lactic acid is improved but still elevated at 2.9. Platelet count decreased to 78 most likely DIC. BUN/creatinine 29/3.73 04/06: Resting comfortable in bed. Eyes open to command. Currently afebrile. Currently on fentanyl drip at 200 g an hour. Urine output is minimal. Status post hemodialysis yesterday last 3 L Subjective 04/07: Tmax 100.2. Currently 99.8. Increased tube feed residuals overnight. Check KUB. Bowel regimen increased. Arousable on fentanyl drip. Will transition back to propofol given 1 dose of methylnaloxone today. 04/08: Tmax 99.1. No acute events overnight. Ostomy output approximately 75 cc liquid brown stool. Residuals decreased significantly. 04/09: Afebrile. Patient more restless and agitated today. Patient dyssynchronous with ventilator fentanyl infusion instituted. We'll continue to monitor ostomy stool output. Hemoccult pending. 04/10: Afebrile. Episode of Afib/flutter during the night with resolution. 04/11: Patient became agitated overnight requiring additional sedatives, propofol was added to medication regimen ,now discontinued. Patient tolerating tube feeds, underwent hemodialysis with 2.5 L off today. 04/12: Failed CPAP trials, plan for tracheostomy in the near future. Ostomy output, significantly decreased. 04/13: Neuro status unchanged. Patient tolerating tube feeds., with initiation of metoclopramide yesterday. Hemodialysis 3.5 liters off today. 04/14: CPAP trials initiated this a.m., patient tolerated for approximately 1.5 hours. Patient awake complaint of pain, oxycodone PRN initiated, and transitioning off IV pain medication. Objective Vital Signs Date Time Temp Pulse Resp B/P (MAP) Pulse Ox O2 Delivery O2 Flow Rate FiO2 04/14/17 16:38 93 50 04/14/17 16:07 17 04/14/17 14:00 80 04/14/17 12:00 100.1 154/89 (110) Intake and Output 04/14/17 04/14/17 04/15/17 08:00 16:00 00:00 Intake Total 645 ml 220 ml Output Total 350 ml Balance 295 ml 220 ml Result Diagram: 04/14/17 04104/14/17 0410 Imaging Last Impressions Chest X-Ray 04/06/17 0600 Signed Impressions: Service Date/Time: Thursday, April 06, 2017 02:45 - CONCLUSION: Diffuse severe bilateral airspace consolidation, increased from the prior study. Jan Temple MD Objective Remarks GENERAL 48-year-old male, currently orotracheally intubated and responsive on low-dose fentanyl infusion SKIN: Warm and dry. No rash HEAD: Normocephalic. EYES: No scleral icterus. No injection or drainage. NECK: Supple, trachea midline. No JVD or lymphadenopathy. CARDIOVASCULAR: Regular rate and rhythm. S1, S2 no S4. Without murmurs, gallops, or rubs. RESPIRATORY: Breath sounds equal bilaterally. Bilateral scattered crackles, few wheezes GASTROINTESTINAL: Abdomen soft, non-tender, nondistended. Colostomy in place in right lower quadrant, liquid brown stool output MUSCULOSKELETAL: No significant peripheral NEURO EXAM: GCS11T. Pupils are round, reactive to light. 3 mm. Following commands, moving extremities 4 Line: Central Venous Catheter Side: Right Location: Internal, Jugular A/P Assessment and Plan Neuro/Psych: History of peripheral neuropathy Patient comfortable on fentanyl infusion, propofol now discontinued-Consider transitioning to Precedex in anticipation of continue CPAP trials and possibly SBT and extubation Goal of RASS -2 Daily sedation vacation once hypoxia improves - Patient has no evidence of anoxic brain injury at this time Holding pregabalin 75 mg twice a day Transition to by mouth narcotics oxycodone 5 mg every 6 hours when necessary Resp: Acute hypoxemic respiratory failure Pulmonary edema - Intubated for airway protection, and cardiac arrest, now hypoxemic - Underlying pulmonary edema - Continue mechanical ventilation currently on PRBC 16/500/1.2//50 Ventilator bundle Albuterol/ipratropium aerosols every 6 hours and albuterol aerosols every 2 hours. Dyspnea - No weaning until hemodynamically stable, until hypoxia improved Chest x-ray 04/10-increase left lung infiltrate CVS PEA Cardiac arrest CABG x2 (03/01/2017 at [facility]) with BERG to LAD, SVG to OM1. Coronary artery disease - left circumflex 80%, OM1 90%, LAD 80%, RCA 100% with collaterals Peripheral arterial disease Shock resolved Pulmonary edema - PEA arrest most likely secondary to hypoxia and hyperkalemia no evidence of ACS Temporary pacing discontinued -Echocardiogram EF 35-40%. Questionable left atrial shunt. Mild MR/TR Cardiology Dr. Blair following - Continue aspirin 81 mg daily - EKG and troponin x3 negative - Fluid removal with HD, s/p 1L fluid removed 04/04, repeat hemodialysis per nephrology Home medications metoprolol 50 mg twice a day, enalapril 10 mg daily and amlodipine 10 mg daily. GI: Transaminitis Shock liver History of colostomy Elevated total bilirubin Continue Neutra hep trickle feeds 20 cc daily Pantoprazole 40 mg IV every 12 Docusate sodium/senna liquid twice a day and senna liquid twice a day along with polyethylene glycol twice a day and lactulose daily - Transaminitis secondary to shock to use to improve 1 dose of methylnaltrexone 1 04/07 Alkaline phosphatase elevated, will monitor HEME: Normocytic Anemia requiring transfusion Thrombocytopenia - Transfuse 1 U PRBCs during this hospitalization - Monitor H&H /FEN/renal: ESRD [id number] - Nephrology following Dr. Kennedy and HD per nephrology.IHD 2.5 L off Replace as clinically indicated ID: Probable sepsis/septic shock - Empiric broad-spectrum antibiotic with piperacillin/tazobactam until cultures come back negative - Single dose of vancomycin given Blood cultures 2, sputum and urine 04/04 no growth to date ENDO: Sliding-scale insulin low regimen to maintain euglycemia every 6 hours DVT GI prophylaxis - Teds SCDs - No pharmacological DVT prophylaxis due to severe anemia -Pantoprazole IV twice a day Access - right IJ CVL placed 04/04 by ED physician Dispo: Level [address] Blair and TRANSMISSION OPERATOR at bedside ([facility]) Physician Inge Harrington MD Apr 14, 2017 17:38
[2017-04-14] MEDS ORDERED: oxyCODONE HCL ORAL CONC 5 MG/0.25 ML SYRINGE PO PRN (17:45)
[2017-04-14] MEDS ORDERED: DEXMEDETOMIDINE INJ 200 MCG in SODIUM CHLORIDE 0.9% INJ 50 ML IV PRN (18:00)
[2017-04-15] VITALS (24 sets, daily range): BP systolic 113–162; BP diastolic 60–87; PULSE 73–134; RESP 16–29; TEMP 97.5–100.4; O2SAT 93–100
[2017-04-15] MEDS: LORazepam 2 MG/ML VIAL IV PUSH PRN ×3 (01:04→13:54)
[2017-04-15] MEDS: fentaNYL DRIP 250 ML IV PRN ×2 (02:42→13:32)
[2017-04-15] MEDS: CHLORHEXIDINE GLUCONATE 2 % 1 PACK (2 CLOTHS) TOP SCH (04:00)
[2017-04-15] MEDS: METOCLOPRAMIDE HCL 10 MG/2 ML VIAL IV SCH ×3 (04:14→19:47)
[2017-04-15] MEDS: PANTOPRAZOLE SODIUM 40 MG VIAL IV PUSH SCH ×2 (04:15→18:12)
[2017-04-15] MEDS: PIPERACIL-TAZO 2.25 GM PREMIX 50 ML IV SCH ×4 (04:15→22:14)
[2017-04-15 05:02] LABS: BICARBONATE 30.3 MEQ/L (21.0-32.0); POTASSIUM 3.3 MEQ/L (3.5-5.1)
[2017-04-15] MEDS: INSULIN NovoLIN REGULAR SUPPLEMENTAL SCALE SQ SCH ×5 (05:06→23:01)
--- NOTE | 2017-04-15 05:25 | RADRPT ---
EXAM DATE/TIME: 04/15/2017 04:14 [place] COMPARISON: CHEST SINGLE AP, April 12, 2017, 4:19. INDICATIONS : Shortness of breath, possible pulmonary disease. MEDICAL HISTORY : Hypertension. Congestive heart failure. Diabetes mellitus type II. SURGICAL HISTORY : CABG. ENCOUNTER: Subsequent ACUITY: 1 week PAIN SCORE: Non-responsive. LOCATION: Bilateral chest FINDINGS: Diffuse alveolar and interstitial infiltrates again seen. Cardiomegaly and sternotomy wires are noted . Enteric tube courses beneath the diaphragm. Endotracheal tube tip at the inferior margin of the cla vicles. Right jugular line tip overlies expected location of the SVC. CONCLUSION: No significant change has occurred. Jacob French MD on April 15, 2017 at 5:23 Board Certified Radiologist. This report was verified electronically.
[2017-04-15 05:31] LABS: BLOOD GAS BASE EXCESS 4.4 mmol/L (-2-2); BLOOD GAS CARBOXYHEMOGLOBIN 1.7 % (0-4); BLOOD GAS HCO3 29 mmol/L (22-26); BLOOD GAS METHEMOGLOBIN 1.7 % (0-2); BLOOD GAS O2 HGB SATURATION 91 % (90-100); BLOOD GAS OXYGEN CONTENT 10.9 Vol % (12.0-20.0); BLOOD GAS PCO2 46 mmHg (38-42); BLOOD GAS PO2 70 mmHg (61-120); BLOOD GAS TOTAL HGB 8.5 G/DL (12.0-16.0); CRITICAL VALUE NO; OXYGEN DEVICE VENTILATOR; TEMP CORR TO 98.6
[2017-04-15 05:32] LABS: DRAW SITE RT BRACHIAL; FIO2 50 %; NUMBER OF ARTERIAL PUNCTURES 1; STAT NO; ULNAR PULSE PRESENT
[2017-04-15] MEDS: BENEPROTEIN POWDER 1 PACK G-TUBE SCH ×3 (09:00→18:00)
[2017-04-15] MEDS: POLYETHYLENE GLYCOL 17 GM PKG NG SCH ×2 (09:00→19:47)
[2017-04-15] MEDS: DOCUSATE SODIUM 100 MG/10 ML UDC PO SCH ×2 (09:00→19:47)
[2017-04-15] MEDS: SENNOSIDES SYRUP 8.8 MG/5 ML CUP PO SCH ×2 (09:00→19:47)
[2017-04-15] MEDS: METOPROLOL TARTRATE 50 MG TAB PO SCH ×2 (09:06→19:47)
[2017-04-15] MEDS: ASPIRIN 81 MG CHEW TAB CHEW SCH (09:06)
[2017-04-15] MEDS: SODIUM CHLORIDE 0.9% FLUSH 10 ML FLUSH IV FLUSH SCH ×2 (09:06→19:47)
[2017-04-15] MEDS: LACTULOSE SYRUP 20 GM/30 ML CUP PO SCH (09:06)
[2017-04-15] MEDS: amLODIPine BESYLATE 5 MG TAB PO SCH (09:06)
[2017-04-15] MEDS: CHLORHEXIDINE 0.12% (ORAL KIT) 15 ML CUP MT SCH ×2 (09:07→19:48)
--- NOTE | 2017-04-15 11:03 | PD.CARD.PN ---
Subjective Subjective Remarks On sedation No change overnight Does have sinus tachycardia off and on Objective Medications Current Medications Medications (Trade) Dose Ordered Sig/Hallie Route Start Time Stop Time Status Last Admin (NS Flush) 2 ml UNSCH PRN IVF 04/04/17 00:00 (Brethine Inj) 1 mg UNSCH PRN SQ 04/04/17 02:30 (NS Flush) 2 ml UNSCH PRN IV FLUSH 04/04/17 02:30 04/14/17 17:19 (NS Flush) 2 ml BID IV FLUSH 04/04/17 09:00 04/15/17 09:06 (Tylenol) 650 mg Q6H PRN PO 04/04/17 02:30 (Morphine Inj) 2 mg Q2H PRN IV PUSH 04/04/17 02:30 04/14/17 15:19 (Protonix Inj) 40 mg Q12H IV PUSH 04/04/17 06:00 04/15/17 04:15 (Ativan Inj) 1 mg Q1H PRN IV PUSH 04/04/17 02:30 04/15/17 04:17 (Zofran Inj) 4 mg Q6H PRN IV PUSH 04/04/17 02:30 Miscellaneous Information 1 Q361D XX 04/04/17 02:30 04/04/17 03:00 (Chlorhexidine 2% Cloth) Taper DAILY@04 TOP 04/04/17 04:00 03/31/18 03:59 04/15/17 04:00 (Chlorhexidine 2% Cloth) 3 pack UNSCH PRN TOP 04/04/17 02:30 (Milk Of Magnesia Liq) 30 ml Q12H PRN PO 04/04/17 02:30 (Dulcolax Supp) 10 mg DAILY PRN RECTAL 04/04/17 02:30 (Lactulose Liq) 30 ml DAILY PRN PO 04/04/17 02:30 (Peridex 0.12% Liq) 15 ml BID@08,20 MT 04/04/17 08:00 04/15/17 09:07 Piperacillin Sod/ Tazobactam Sod 50 ml @ 200 mls/hr Q6H IV 04/04/17 04:00 04/15/17 09:06 Pharmacy Profile Note 0 ml @ 0 mls/hr UNSCH OTHER 04/04/17 02:45 Sodium Chloride 1,000 ml @ 0 mls/hr Q0M PRN OTHER 04/04/17 11:36 04/09/17 16:35 Sodium Chloride 1,000 ml @ 200 mls/hr Q5H PRN IV 04/04/17 11:36 Sodium Chloride 1,000 ml @ 0 mls/hr Q0M PRN OTHER 04/04/17 11:36 (Mannitol Inj) 12.5 gm UNSCH PRN IV 04/04/17 11:45 Albumin Human 100 ml @ 60 mls/hr UNSCH PRN IV 04/04/17 11:45 04/11/17 11:21 (NS Flush) 5 ml UNSCH PRN IV FLUSH 04/04/17 11:45 (Heparin Inj) UNSCH PRN .XX 04/04/17 11:45 (Gentamicin (Dialysis) Inj) 20 mg UNSCH PRN OTHER 04/04/17 11:45 (Zofran Inj) 4 mg UNSCH PRN IV PUSH 04/04/17 11:45 (Tylenol) 650 mg UNSCH PRN PO 04/04/17 11:45 04/06/17 23:53 (Benadryl) 25 mg UNSCH PRN PO 04/04/17 11:45 (Nitrostat Sl) 0.4 mg UNSCH PRN SL 04/04/17 11:45 (Catapres) 0.1 mg UNSCH PRN PO 04/04/17 11:45 (Gelfoam 12 Mm/7 Mm Top) 1 foam UNSCH PRN TOP 04/04/17 11:45 04/11/17 13:44 (Epogen Inj) 10,000 units MoWeFr SQ 04/04/17 20:00 04/13/17 20:53 (Aspirin Chew) 81 mg DAILY CHEW 04/05/17 09:00 04/15/17 09:06 (Norvasc) 2.5 mg DAILY PO 04/07/17 09:00 04/15/17 09:06 (Apresoline Inj) 10 mg Q1HR PRN IV PUSH 04/06/17 15:00 04/14/17 00:14 (Nitroglycerin 2% Oint) 2 inch Q6HR PRN TOPICAL 04/06/17 15:00 (Beneprotein Powder) 1 pack TID G-TUBE 04/06/17 18:00 04/15/17 09:00 (Albuterol Neb) 2.5 mg Q2HR NEB PRN NEB 04/06/17 15:15 (Colace Liq) 100 mg Q12HR PO 04/06/17 21:00 04/14/17 20:26 (Senna Liq) 8.8 mg BID PO 04/06/17 21:00 04/14/17 20:26 (Miralax) 17 gm BID NG 04/07/17 21:00 04/14/17 20:26 (Lactulose Liq) 30 ml DAILY PO 04/08/17 09:00 04/15/17 09:06 (D50w (Vial) Inj) 50 ml UNSCH PRN IV PUSH 04/07/17 12:30 (Glucagon Inj) 1 mg UNSCH PRN OTHER 04/07/17 12:30 (NovoLIN R SUPPLEMENTAL SCALE) 1 Q6HR SQ 04/07/17 18:00 04/14/17 23:57 Vancomycin HCl 1000 mg/Sodium Chloride 250 ml @ 250 mls/hr WITH DIALYSIS IV 04/09/17 13:00 Future hold 04/09/17 16:35 Fentanyl Citrate 250 ml @ 5 mls/hr TITRATE PRN IV 04/09/17 15:00 04/15/17 02:42 (Lopressor) 50 mg Q12HR PO 04/11/17 21:00 04/15/17 09:06 (Reglan Inj) 5 mg Q8HR IV 04/12/17 14:30 04/15/17 04:14 (Lopressor Inj) 5 mg Q5M PRN IV PUSH 04/14/17 02:30 04/14/17 15:18 Dexmedetomidine HCl 200 mcg/ Sodium Chloride 52 ml @ 3.63 mls/hr TITRATE PRN IV 04/14/17 18:00 (Roxicodone Intensol Liq) 5 mg Q6H PRN PO 04/14/17 17:45 Vital Signs / I&O Vital Signs Date Time Temp Pulse Resp B/P (MAP) Pulse Ox O2 Delivery O2 Flow Rate FiO2 04/15/17 10:00 125 04/15/17 10:00 125 19 143/72 (95) 93 04/15/17 10:00 40 04/15/17 09:00 115 29 116/65 (82) 94 04/15/17 09:00 115 04/15/17 08:00 40 04/15/17 08:00 98.7 83 17 140/70 (93) 99 04/15/17 08:00 83 04/15/17 07:50 100 40 04/15/17 07:00 75 16 113/60 (77) 100 04/15/17 07:00 75 04/15/17 06:00 75 04/15/17 04:00 73 04/15/17 04:00 98.9 73 26 119/62 (81) 97 04/15/17 04:00 50 04/15/17 03:54 99 50 04/15/17 02:00 75 04/15/17 00:00 98.6 83 16 155/80 (105) 96 04/15/17 00:00 83 04/15/17 00:00 50 04/14/17 23:56 96 40 04/14/17 22:00 78 04/14/17 20:10 96 40 04/14/17 20:00 83 04/14/17 20:00 98.7 83 16 126/67 (86) 97 04/14/17 20:00 50 04/14/17 18:00 75 04/14/17 18:00 82 16 120/68 (85) 93 04/14/17 17:00 88 18 120/65 (83) 92 04/14/17 16:38 93 50 04/14/17 16:07 17 04/14/17 16:00 98.8 98 17 131/69 (89) 93 04/14/17 16:00 50 04/14/17 16:00 129 04/14/17 15:28 120 25 161/85 (110) 89 04/14/17 15:15 127 27 185/92 (123) 81 04/14/17 15:14 126 28 182/94 (123) 82 04/14/17 15:00 127 29 188/95 (126) 79 04/14/17 14:00 80 16 128/71 (90) 97 04/14/17 14:00 80 04/14/17 13:00 90 19 143/92 (109) 93 04/14/17 12:11 40 04/14/17 12:03 92 40 04/14/17 12:00 40 04/14/17 12:00 128 12/9/17 12:00 100.1 128 18 154/89 (638) 92 I/O 04/14/17 04/14/17 04/14/17 04/15/17 04/15/17 04/15/17 07:00 15:00 23:00 07:00 15:00 23:00 Intake Total 645 ml 651 ml 599 ml Output Total 50 ml 300 ml 450 ml 200 ml Balance 595 ml -300 ml 201 ml 399 ml IV Total 325 ml 351 ml 350 ml Tube Feeding 120 ml 200 ml 189 ml Tube Irrigant 200 ml 100 ml Other 60 ml Output Urine Total 300 ml Stool Total 50 ml 450 ml 200 ml Physical Exam GENERAL: Intubated SKIN: Warm and dry. HEAD: Atraumatic. Normocephalic. EYES: Pupils equal and round. No scleral icterus. No injection or drainage. ENT: No nasal bleeding or discharge. Mucous membranes pink and moist. NECK: Trachea midline. No JVD. CARDIOVASCULAR: Regular rate and rhythm. RESPIRATORY: No accessory muscle use. Clear to auscultation. Breath sounds equal bilaterally. GASTROINTESTINAL: Abdomen soft, non-tender, nondistended. Hepatic and splenic margins not palpable. MUSCULOSKELETAL: Extremities without clubbing, cyanosis, or edema. No obvious deformities. NEUROLOGICAL: Intubated Laboratory Laboratory Tests Test 04/15/17 04:11 04/15/17 05:20 Blood Urea Nitrogen 41 MG/DL Creatinine 4.58 MG/DL Random Glucose 118 MG/DL Albumin 2.2 GM/DL Calcium Level 8.8 MG/DL Phosphorus Level 2.7 MG/DL Sodium Level 141 MEQ/L Potassium Level 3.3 MEQ/L Chloride Level 100 MEQ/L Carbon Dioxide Level 30.3 MEQ/L Anion Gap 11 MEQ/L Estimat Glomerular Filtration Rate 13 ML/MIN Random Vancomycin Level 12.0 COMMENT Blood Gas Puncture Site RT BRACHIAL Blood Gas Patient Temperature 98.6 Blood Gas HCO3 29 mmol/L Blood Gas Base Excess 4.4 mmol/L Blood Gas Oxygen Saturation 91 % Arterial Blood pH 7.41 Arterial Blood Partial Pressure CO2 46 mmHg Arterial Blood Partial Pressure O2 70 mmHg Arterial Blood Oxygen Content 10.9 Vol % Arterial Blood Carboxyhemoglobin 1.7 % Arterial Blood Methemoglobin 1.7 % Blood Gas Hemoglobin 8.5 G/DL Oxygen Delivery Device VENTILATOR Blood Gas Ventilator Setting SEE COMMENT Blood Gas Inspired Oxygen 50 % Imaging Last 24 hours Impressions Chest X-Ray 04/15/17 0600 Signed Impressions: Service Date/Time: Saturday, April 15, 2017 04:14 - CONCLUSION: No significant change has occurred. Jacob French MD Assessment and Plan Problem List: (1) Hx of CABG ICD Codes: Z95.1 - Presence of aortocoronary bypass graft (2) Cardiac arrest with pulseless electrical activity ICD Codes: I46.9 - Cardiac arrest, cause unspecified Status: Acute (3) Symptomatic bradycardia ICD Codes: R00.1 - Bradycardia, unspecified Status: Acute (4) Hyperkalemia ICD Codes: E87.5 - Hyperkalemia Status: Resolved (5) Shock liver ICD Codes: K72.00 - Acute and subacute hepatic failure without coma (6) ESRD (end stage renal disease) on dialysis ICD Codes: N18.6 - End stage renal disease; Z99.2 - Dependence on renal dialysis Status: Chronic (7) Anemia of renal disease ICD Codes: D63.1 - Anemia in chronic kidney disease Status: Chronic (8) Sepsis due to pneumonia ICD Codes: J18.9 - Pneumonia, unspecified organism; A41.9 - Sepsis, unspecified organism (9) HTN (hypertension) ICD Codes: I10 - Hypertension Status: Chronic Assessment and Plan 1) PEA arrest Possible hypoxic with anemia 2) CABGx2 Trops negative, most likely non-cardiac arrest Con't ASA 3) EF 35-40%, mild MR/TR Possible due to shock, will need to eventually recheck Will wait until after extubated for better imaging 4) Shock liver 5) Anemia Unsure of cause 6) ESRD on HD 7) Symptomatic bradycardia resolved 8) Thrombocytopenia, most likely due to shock liver Resolved, platelets back to normal 9) Sinus tachycardia Most likely due to overall illness Con't BB Jhonathan Blair DO Apr 15, 2017 11:03
[2017-04-15] MEDS: METOPROLOL TARTRATE 5 MG/5 ML VIAL IV PUSH PRN ×2 (11:34→16:34)
--- NOTE | 2017-04-15 14:20 | HHI.CCPN ---
Subjective Remarks/Hospital Course 56-year-old male presents via EMS after the patient was coded in the field by the paramedics and had return of spontaneous circulation. According to EMS they received a call for shortness of breath and when they arrived the patient's symptoms progressed. They stated that the patient started of bradycardia down, eventually went into PEA with a bradycardic rhythm. They administered CPR for approximately one and a half minutes and gave the patient 1 mg of epinephrine. They then had return of spontaneous circulation with a bradycardic rhythm in the 30s. They then started pacing the patient in the field and intubated him in the field with a 7.5 endotracheal tube. Prior to arrival EMS states that the patient regained consciousness and was able to follow commands. Upon arrival the patient is intubated. He suffered another PEA arrest in the emergency department, again with the return of spontaneous circulation after 1 cycle of CPR. 04/05/17: Patient remains intubated sedated. Improved neuro exam now following commands when sedation lightened. Remains anuric received hemodialysis yesterday with 1 L removed. FiO2 requirement remains high at 65% with chest x- ray showing bilateral pulmonary edema. PEEP increased to 10, Plan for repeat hemodialysis today. Receiving 1 unit PRBC for hemoglobin of 6.9. Tachycardia resolved. Lactic acid is improved but still elevated at 2.9. Platelet count decreased to 78 most likely DIC. BUN/creatinine 29/3.73 04/06: Resting comfortable in bed. Eyes open to command. Currently afebrile. Currently on fentanyl drip at 200 g an hour. Urine output is minimal. Status post hemodialysis yesterday last 3 L Subjective 04/07: Tmax 100.2. Currently 99.8. Increased tube feed residuals overnight. Check KUB. Bowel regimen increased. Arousable on fentanyl drip. Will transition back to propofol given 1 dose of methylnaloxone today. 04/08: Tmax 99.1. No acute events overnight. Ostomy output approximately 75 cc liquid brown stool. Residuals decreased significantly. 04/09: Afebrile. Patient more restless and agitated today. Patient dyssynchronous with ventilator fentanyl infusion instituted. We'll continue to monitor ostomy stool output. Hemoccult pending. 04/10: Afebrile. Episode of Afib/flutter during the night with resolution. 04/11: Patient became agitated overnight requiring additional sedatives, propofol was added to medication regimen ,now discontinued. Patient tolerating tube feeds, underwent hemodialysis with 2.5 L off today. 04/12: Failed CPAP trials, plan for tracheostomy in the near future. Ostomy output, significantly decreased. 04/13: Neuro status unchanged. Patient tolerating tube feeds., with initiation of metoclopramide yesterday. Hemodialysis 3.5 liters off today. 04/14: CPAP trials initiated this a.m., patient tolerated for approximately 1.5 hours. Patient awake complaint of pain, oxycodone PRN initiated, and transitioning off IV pain medication. 04/15: remains intubated sedated, intermittently follows commands, but quite lethargic. Chest x-ray unchanged shows bilateral pulmonary edema Objective Vital Signs Date Time Temp Pulse Resp B/P (MAP) Pulse Ox O2 Delivery O2 Flow Rate FiO2 04/15/17 11:43 96 40 04/15/17 10:00 125 04/15/17 10:00 19 143/72 (95) 04/15/17 08:00 98.7 Intake and Output 04/15/17 04/15/17 04/16/17 08:00 16:00 00:00 Intake Total 599 ml 250 ml Output Total 200 ml Balance 399 ml 250 ml Result Diagram: 04/14/17 0410 04/15/17 0411 Other Results Laboratory Tests Test 04/15/17 05:20 Blood Gas Puncture Site RT BRACHIAL Blood Gas Patient Temperature 98.6 Blood Gas HCO3 29 mmol/L (22-26) Blood Gas Base Excess 4.4 mmol/L (-2-2) Blood Gas Oxygen Saturation 91 % (90-100) Arterial Blood pH 7.41 (7.380-7.420) Arterial Blood Partial Pressure CO2 46 mmHg (38-42) Arterial Blood Partial Pressure O2 70 mmHg (61-120) Arterial Blood Oxygen Content 10.9 Vol % (12.0-20.0) Arterial Blood Carboxyhemoglobin 1.7 % (0-4) Arterial Blood Methemoglobin 1.7 % (0-2) Blood Gas Hemoglobin 8.5 G/DL (12.0-16.0) Oxygen Delivery Device VENTILATOR Blood Gas Ventilator Setting SEE COMMENT Blood Gas Inspired Oxygen 50 % Imaging Last Impressions Chest X-Ray 04/06/17 0600 Signed Impressions: Service Date/Time: Thursday, April 06, 2017 02:45 - CONCLUSION: Diffuse severe bilateral airspace consolidation, increased from the prior study. Jan Temple MD Objective Remarks GENERAL 48-year-old male, currently orotracheally intubated on low-dose fentanyl infusion SKIN: Warm and dry. No rash HEAD: Normocephalic. EYES: No scleral icterus. No injection or drainage. NECK: Supple, trachea midline. No JVD or lymphadenopathy. CARDIOVASCULAR: Regular rate and rhythm. S1, S2 no S4. Without murmurs, gallops, or rubs. RESPIRATORY: Breath sounds equal bilaterally. Bilateral scattered crackles, few wheezes GASTROINTESTINAL: Abdomen soft, non-tender, nondistended. Colostomy in place in right lower quadrant, liquid brown stool output MUSCULOSKELETAL: No significant peripheral NEURO EXAM: Pupils are round, reactive to light. 3 mm. Following commands, moving extremities 4. Lethargic Line: Central Venous Catheter Side: Right Location: Internal, Jugular A/P Assessment and Plan Neuro/Psych: History of peripheral neuropathy Encephalopathy Patient comfortable on fentanyl infusion, Goal of RASS -1 Daily sedation vacation once hypoxia improves - Patient has no evidence of anoxic brain injury at this time Holding pregabalin 75 mg twice a day Transition to by mouth narcotics oxycodone 5 mg every 6 hours when necessary Resp: Acute hypoxemic respiratory failure Pulmonary edema - Intubated for airway protection, and cardiac arrest, now hypoxemia improving - Underlying pulmonary edema persists - Continue mechanical ventilation currently on PRVC 16/500/1.2/8/40 Ventilator bundle. Albuterol/ipratropium aerosols every 6 hours and albuterol aerosols every 2 hours for Dyspnea - No weaning until hemodynamically stable, until hypoxia improved Chest x-ray 04/15-bilateral pulmonary edema CVS PEA Cardiac arrest CABG x2 (03/01/2017 at [facility]) with BERG to LAD, SVG to OM1. Coronary artery disease - left circumflex 80%, OM1 90%, LAD 80%, RCA 100% with collaterals Peripheral arterial disease Shock resolved Pulmonary edema - PEA arrest most likely secondary to hypoxia and hyperkalemia no evidence of ACS Temporary pacing discontinued -Echocardiogram EF 35-40%. Questionable left atrial shunt. Mild MR/TR Cardiology Dr. Blair following - Continue aspirin 81 mg daily - EKG and troponin x3 negative - Fluid removal with HD, s/p 1L fluid removed 04/04, repeat hemodialysis per nephrology Home medications metoprolol 50 mg twice a day, enalapril 10 mg daily and amlodipine 10 mg daily. GI: Transaminitis Shock liver History of colostomy Elevated total bilirubin Continue Neutra hep trickle feeds 20 cc daily Pantoprazole 40 mg IV every 12 Docusate sodium/senna liquid twice a day and senna liquid twice a day along with polyethylene glycol twice a day and lactulose daily - Transaminitis secondary to shock 1 dose of methylnaltrexone 1 04/07 Alkaline phosphatase elevated, will monitor HEME: Normocytic Anemia requiring transfusion Thrombocytopenia - Transfuse 1 U PRBCs during this hospitalization - Monitor H&H /FEN/renal: ESRD [id number] - Nephrology following Dr. Kennedy and HD per nephrology.IHD Replace as clinically indicated ID: Probable sepsis/septic shock - Empiric broad-spectrum antibiotic with piperacillin/tazobactam until cultures come back negative - Single dose of vancomycin given Blood cultures 2, sputum and urine 04/04 no growth to date ENDO: Sliding-scale insulin low regimen to maintain euglycemia every 6 hours DVT GI prophylaxis - Teds SCDs - No pharmacological DVT prophylaxis due to severe anemia - Pantoprazole IV twice a day Access - right IJ CVL placed 04/04 by ED physician Dispo: Level 2 Discussed with SCOUT SNIPER at bedside Jose Martin Montoya MD Apr 15, 2017 14:20
--- NOTE | 2017-04-15 16:23 | HHI.NPPN ---
Subjective History of Present Illness 56-year-old male with a history of end-stage renal disease, diabetes mellitus, hypertension and relatively recent CABG also has a history at times noncompliance with dialysis. Patient apparently missed his dialysis session yesterday sequently presenting to this institution with increasing shortness of breath noted to have evidence of bradycardia subsequently having a PEA requiring multiple episodes of CPR. There was significant leukocytosis on presentation blood count of 26.9, and elevated lactic acid level of 9 and a chest x-ray revealing bilateral consolidation right greater than left. Should be noted that the patient is not usually a significant fluid stef between dialysis sessions. Unfortunately patient was unable to provide any history of time of consultation as he is sedated on the ventilator. Interval History Patient still intubated with ventilatory support. Review of Systems General General Remarks Unobtainable Objective Data Data 04/15/17 04/16/17 19:00 07:00 Intake Total 250 ml Balance 250 ml IV Total 250 ml Vital Signs Date Time Temp Pulse Resp B/P (MAP) Pulse Ox O2 Delivery O2 Flow Rate FiO2 04/15/17 15:00 124 04/15/17 15:00 124 24 128/73 (91) 04/15/17 14:44 95 40 04/15/17 14:00 127 04/15/17 14:00 127 20 130/81 (97) 04/15/17 13:00 134 24 153/87 (109) 04/15/17 13:00 134 04/15/17 12:00 40 04/15/17 12:00 100.4 117 23 146/81 (102) 04/15/17 12:00 117 04/15/17 11:43 96 40 04/15/17 11:00 125 04/15/17 11:00 125 16 134/80 (98) 04/15/17 10:00 125 04/15/17 10:00 125 19 143/72 (95) 93 04/15/17 10:00 40 04/15/17 09:00 115 29 116/65 (82) 94 04/15/17 09:00 115 04/15/17 08:00 40 04/15/17 08:00 98.7 83 17 140/70 (93) 99 04/15/17 08:00 83 04/15/17 07:50 100 40 04/15/17 07:00 75 16 113/60 (77) 100 04/15/17 07:00 75 04/15/17 06:00 75 04/15/17 04:00 73 04/15/17 04:00 98.9 73 26 119/62 (81) 97 04/15/17 04:00 50 04/15/17 03:54 99 50 04/15/17 02:00 75 04/15/17 00:00 98.6 83 16 155/80 (105) 96 04/15/17 00:00 83 04/15/17 00:00 50 04/14/17 23:56 96 40 04/14/17 22:00 78 04/14/17 20:10 96 40 04/14/17 20:00 83 04/14/17 20:00 98.7 83 16 126/67 (86) 97 04/14/17 20:00 50 04/14/17 18:00 75 04/14/17 18:00 82 16 120/68 (85) 93 04/14/17 17:00 88 18 120/65 (83) 92 04/14/17 16:38 93 50 -: 04/14/17 0410 04/15/17 0411 Physical Exam General Appearance: No Acute Distress, Comfortable Pulmonary Resp Exam: Clear Bilaterally, Diminished Breath Sounds Cardiology CV Exam: Regular, Normal Sinus Rhythm Gastrointestinal/Abdomen GI Exam: Soft, Non-Tender Extremeties Extremities Exam: Moderate Edema (in upper extrmities) Assessment/Plan Problem List: (1) ESRD (end stage renal disease) on dialysis ICD Codes: N18.6 - End stage renal disease; Z99.2 - Dependence on renal dialysis Status: Chronic Plan: I will plan for hemodialysis tomorrow as well as Sunday improve his volume status in the hope of improving the patient's chances of getting off the ventilator. See orders. Medications to be adjusted for ESRD. Avoid gadolinium. (2) Sepsis due to pneumonia ICD Codes: J18.9 - Pneumonia, unspecified organism; A41.9 - Sepsis, unspecified organism Plan: Appears to be clinically present. Defer antibiotic therapy to critical care. (3) Anemia of renal disease ICD Codes: D63.1 - Anemia in chronic kidney disease Status: Chronic Plan: Continue Epogen with HD (4) Cardiac arrest with pulseless electrical activity ICD Codes: I46.9 - Cardiac arrest, cause unspecified Status: Acute (5) HTN (hypertension) ICD Codes: I10 - Hypertension Status: Chronic Plan The exam, history, and the medical decision-making described in the above note were completed with the assistance of the [facility]. I reviewed and agree with the findings presented. David Kennedy MD Apr 15, 2017 16:23
[2017-04-16] VITALS (36 sets, daily range): BP systolic 98–205; BP diastolic 56–86; PULSE 73–137; RESP 14–39; TEMP 97.8–98.9; O2SAT 88–100
[2017-04-16] MEDS: LORazepam 2 MG/ML VIAL IV PUSH PRN ×4 (00:27→14:54)
[2017-04-16] MEDS: fentaNYL DRIP 250 ML IV PRN ×2 (01:27→09:56)
[2017-04-16] MEDS: CHLORHEXIDINE GLUCONATE 2 % 1 PACK (2 CLOTHS) TOP SCH (04:00)
[2017-04-16] MEDS: PANTOPRAZOLE SODIUM 40 MG VIAL IV PUSH SCH ×2 (05:06→17:51)
[2017-04-16] MEDS: INSULIN NovoLIN REGULAR SUPPLEMENTAL SCALE SQ SCH ×4 (05:06→23:44)
[2017-04-16] MEDS: METOCLOPRAMIDE HCL 10 MG/2 ML VIAL IV SCH ×3 (05:07→19:48)
[2017-04-16] MEDS: PIPERACIL-TAZO 2.25 GM PREMIX 50 ML IV SCH ×4 (05:20→19:48)
[2017-04-16] MEDS: LACTULOSE SYRUP 20 GM/30 ML CUP PO SCH (07:40)
[2017-04-16] MEDS: ASPIRIN 81 MG CHEW TAB CHEW SCH (07:40)
[2017-04-16] MEDS: CHLORHEXIDINE 0.12% (ORAL KIT) 15 ML CUP MT SCH ×2 (07:41→19:48)
[2017-04-16] MEDS: SODIUM CHLORIDE 0.9% FLUSH 10 ML FLUSH IV FLUSH SCH ×2 (07:41→19:49)
[2017-04-16] MEDS: METOPROLOL TARTRATE 50 MG TAB PO SCH ×2 (07:41→19:48)
[2017-04-16] MEDS: BENEPROTEIN POWDER 1 PACK G-TUBE SCH ×3 (07:41→17:51)
[2017-04-16] MEDS: amLODIPine BESYLATE 5 MG TAB PO SCH (07:41)
[2017-04-16] MEDS: POLYETHYLENE GLYCOL 17 GM PKG NG SCH ×2 (09:00→19:47)
[2017-04-16] MEDS: SENNOSIDES SYRUP 8.8 MG/5 ML CUP PO SCH ×2 (09:00→19:48)
[2017-04-16] MEDS: DOCUSATE SODIUM 100 MG/10 ML UDC PO SCH ×2 (09:00→19:47)
[2017-04-16] MEDS: VANCOMYCIN 1,000 MG/NS 250 ML IV SCH ×2 (11:00)
[2017-04-16] MEDS: GELATIN 12 MM/7 MM FOAM TOP PRN (11:04)
[2017-04-16] MEDS: EPOETIN ALFA 10,000 UNITS/ML VIAL SQ SCH (11:05)
--- NOTE | 2017-04-16 12:17 | PD.CARD.PN ---
Subjective Subjective Remarks On sedation No change overnight Does have sinus tachycardia off and on Objective Medications Current Medications Medications (Trade) Dose Ordered Sig/Hallie Route Start Time Stop Time Status Last Admin (NS Flush) 2 ml UNSCH PRN IVF 04/04/17 00:00 (Brethine Inj) 1 mg UNSCH PRN SQ 04/04/17 02:30 (NS Flush) 2 ml UNSCH PRN IV FLUSH 04/04/17 02:30 04/14/17 17:19 (NS Flush) 2 ml BID IV FLUSH 04/04/17 09:00 04/16/17 07:41 (Tylenol) 650 mg Q6H PRN PO 04/04/17 02:30 (Morphine Inj) 2 mg Q2H PRN IV PUSH 04/04/17 02:30 04/14/17 15:19 (Protonix Inj) 40 mg Q12H IV PUSH 04/04/17 06:00 04/16/17 05:06 (Ativan Inj) 1 mg Q1H PRN IV PUSH 04/04/17 02:30 04/16/17 09:28 (Zofran Inj) 4 mg Q6H PRN IV PUSH 04/04/17 02:30 Miscellaneous Information 1 Q361D XX 04/04/17 02:30 04/04/17 03:00 (Chlorhexidine 2% Cloth) Taper DAILY@04 TOP 04/04/17 04:00 03/31/18 03:59 04/16/17 04:00 (Chlorhexidine 2% Cloth) 3 pack UNSCH PRN TOP 04/04/17 02:30 (Milk Of Magnesia Liq) 30 ml Q12H PRN PO 04/04/17 02:30 (Dulcolax Supp) 10 mg DAILY PRN RECTAL 04/04/17 02:30 (Lactulose Liq) 30 ml DAILY PRN PO 04/04/17 02:30 (Peridex 0.12% Liq) 15 ml BID@08,20 MT 04/04/17 08:00 04/16/17 07:41 Piperacillin Sod/ Tazobactam Sod 50 ml @ 200 mls/hr Q6H IV 04/04/17 04:00 04/16/17 11:31 Pharmacy Profile Note 0 ml @ 0 mls/hr UNSCH OTHER 04/04/17 02:45 Sodium Chloride 1,000 ml @ 0 mls/hr Q0M PRN OTHER 04/04/17 11:36 04/09/17 16:35 Sodium Chloride 1,000 ml @ 200 mls/hr Q5H PRN IV 04/04/17 11:36 Sodium Chloride 1,000 ml @ 0 mls/hr Q0M PRN OTHER 04/04/17 11:36 (Mannitol Inj) 12.5 gm UNSCH PRN IV 04/04/17 11:45 Albumin Human 100 ml @ 60 mls/hr UNSCH PRN IV 04/04/17 11:45 04/11/17 11:21 (NS Flush) 5 ml UNSCH PRN IV FLUSH 04/04/17 11:45 (Heparin Inj) UNSCH PRN .XX 04/04/17 11:45 (Gentamicin (Dialysis) Inj) 20 mg UNSCH PRN OTHER 04/04/17 11:45 (Zofran Inj) 4 mg UNSCH PRN IV PUSH 04/04/17 11:45 (Tylenol) 650 mg UNSCH PRN PO 04/04/17 11:45 04/06/17 23:53 (Benadryl) 25 mg UNSCH PRN PO 04/04/17 11:45 (Nitrostat Sl) 0.4 mg UNSCH PRN SL 04/04/17 11:45 (Catapres) 0.1 mg UNSCH PRN PO 04/04/17 11:45 (Gelfoam 12 Mm/7 Mm Top) 1 foam UNSCH PRN TOP 04/04/17 11:45 04/16/17 11:04 (Epogen Inj) 10,000 units MoWeFr SQ 04/04/17 20:00 04/16/17 11:05 (Aspirin Chew) 81 mg DAILY CHEW 04/05/17 09:00 04/16/17 07:40 (Norvasc) 2.5 mg DAILY PO 04/07/17 09:00 04/16/17 07:41 (Apresoline Inj) 10 mg Q1HR PRN IV PUSH 04/06/17 15:00 04/14/17 00:14 (Nitroglycerin 2% Oint) 2 inch Q6HR PRN TOPICAL 04/06/17 15:00 (Beneprotein Powder) 1 pack TID G-TUBE 04/06/17 18:00 04/16/17 07:41 (Albuterol Neb) 2.5 mg Q2HR NEB PRN NEB 04/06/17 15:15 (Colace Liq) 100 mg Q12HR PO 04/06/17 21:00 04/15/17 19:47 (Senna Liq) 8.8 mg BID PO 04/06/17 21:00 04/15/17 19:47 (Miralax) 17 gm BID NG 04/07/17 21:00 04/15/17 19:47 (Lactulose Liq) 30 ml DAILY PO 04/08/17 09:00 04/16/17 07:40 (D50w (Vial) Inj) 50 ml UNSCH PRN IV PUSH 04/07/17 12:30 (Glucagon Inj) 1 mg UNSCH PRN OTHER 04/07/17 12:30 (NovoLIN R SUPPLEMENTAL SCALE) 1 Q6HR SQ 04/07/17 18:00 04/16/17 05:06 Vancomycin HCl 1000 mg/Sodium Chloride 250 ml @ 250 mls/hr WITH DIALYSIS IV 04/09/17 13:00 Future hold 04/16/17 11:00 Fentanyl Citrate 250 ml @ 5 mls/hr TITRATE PRN IV 04/09/17 15:00 04/16/17 09:56 (Lopressor) 50 mg Q12HR PO 04/11/17 21:00 04/16/17 07:41 (Reglan Inj) 5 mg Q8HR IV 04/12/17 14:30 04/16/17 05:07 (Lopressor Inj) 5 mg Q5M PRN IV PUSH 04/14/17 02:30 04/15/17 16:34 Dexmedetomidine HCl 200 mcg/ Sodium Chloride 52 ml @ 3.63 mls/hr TITRATE PRN IV 04/14/17 18:00 (Roxicodone Intensol Liq) 5 mg Q6H PRN PO 04/14/17 17:45 Vital Signs / I&O Vital Signs Date Time Temp Pulse Resp B/P (MAP) Pulse Ox O2 Delivery O2 Flow Rate FiO2 04/16/17 11:14 95 45 04/16/17 11:00 77 04/16/17 11:00 77 16 110/56 (74) 95 04/16/17 10:30 77 04/16/17 10:30 77 22 104/56 (72) 91 04/16/17 10:00 80 14 119/64 (82) 94 04/16/17 10:00 80 04/16/17 09:30 92 04/16/17 09:30 92 18 169/79 (109) 94 04/16/17 09:00 93 21 156/77 (103) 95 04/16/17 09:00 93 04/16/17 08:30 92 23 156/81 (106) 89 04/16/17 08:30 92 04/16/17 08:01 45 04/16/17 08:01 94 44 04/16/17 08:00 40 04/16/17 08:00 98.4 82 16 160/79 (106) 95 04/16/17 08:00 82 04/16/17 07:00 73 04/16/17 07:00 73 16 115/64 (81) 95 04/16/17 06:00 82 04/16/17 04:00 45 04/16/17 04:00 88 04/16/17 04:00 98.9 88 18 159/80 (106) 92 04/16/17 03:27 95 45 04/16/17 02:00 75 04/16/17 00:10 96 50 04/16/17 00:00 87 04/16/17 00:00 98.9 86 19 148/81 (103) 96 04/16/17 00:00 50 04/15/17 22:00 74 04/15/17 20:34 100 50 04/15/17 20:00 133 04/15/17 20:00 98.2 133 16 135/77 (96) 100 04/15/17 20:00 50 04/15/17 19:00 128 18 128/78 (95) 95 04/15/17 19:00 128 04/15/17 18:00 121 23 162/84 (110) 04/15/17 18:00 121 04/15/17 17:00 121 04/15/17 17:00 121 21 144/83 (103) 04/15/17 16:00 40 04/15/17 16:00 97.5 100 20 149/72 (97) 04/15/17 16:00 100 04/15/17 15:00 124 04/15/17 15:00 124 24 128/73 (91) 04/15/17 14:44 95 40 04/15/17 14:00 127 04/15/17 14:00 127 20 130/81 (97) 04/15/17 13:00 134 24 153/87 (109) 04/15/17 13:00 134 I/O 04/15/17 04/15/17 04/15/17 04/16/17 04/16/17 04/16/17 07:00 15:00 23:00 07:00 15:00 23:00 Intake Total 599 ml 250 ml 360 ml 532 ml 250 ml Output Total 200 ml 40 ml 250 ml 3500 ml Balance 399 ml 250 ml 320 ml 282 ml -3250 ml IV Total 350 ml 250 ml 300 ml 250 ml Tube Feeding 189 ml 240 ml 172 ml Other 60 ml 120 ml 60 ml Stool Total 200 ml 40 ml 250 ml Hemodialysis 3500 ml Physical Exam GENERAL: Intubated SKIN: Warm and dry. HEAD: Atraumatic. Normocephalic. EYES: Pupils equal and round. No scleral icterus. No injection or drainage. ENT: No nasal bleeding or discharge. Mucous membranes pink and moist. NECK: Trachea midline. No JVD. CARDIOVASCULAR: Regular rate and rhythm. RESPIRATORY: No accessory muscle use. Clear to auscultation. Breath sounds equal bilaterally. GASTROINTESTINAL: Abdomen soft, non-tender, nondistended. Hepatic and splenic margins not palpable. MUSCULOSKELETAL: Extremities without clubbing, cyanosis, or edema. No obvious deformities. NEUROLOGICAL: Intubated Assessment and Plan Problem List: (1) Hx of CABG ICD Codes: Z95.1 - Presence of aortocoronary bypass graft (2) Cardiac arrest with pulseless electrical activity ICD Codes: I46.9 - Cardiac arrest, cause unspecified Status: Acute (3) Symptomatic bradycardia ICD Codes: R00.1 - Bradycardia, unspecified Status: Acute (4) Hyperkalemia ICD Codes: E87.5 - Hyperkalemia Status: Resolved (5) Shock liver ICD Codes: K72.00 - Acute and subacute hepatic failure without coma (6) ESRD (end stage renal disease) on dialysis ICD Codes: N18.6 - End stage renal disease; Z99.2 - Dependence on renal dialysis Status: Chronic (7) Anemia of renal disease ICD Codes: D63.1 - Anemia in chronic kidney disease Status: Chronic (8) Sepsis due to pneumonia ICD Codes: J18.9 - Pneumonia, unspecified organism; A41.9 - Sepsis, unspecified organism (9) HTN (hypertension) ICD Codes: I10 - Hypertension Status: Chronic Assessment and Plan 1) PEA arrest Possible hypoxic with anemia 2) CABGx2 Trops negative, most likely non-cardiac arrest Con't ASA 3) EF 35-40%, mild MR/TR Possible due to shock, will need to eventually recheck Will wait until after extubated for better imaging 4) Shock liver 5) Anemia Unsure of cause 6) ESRD on HD 7) Symptomatic bradycardia resolved 8) Thrombocytopenia, most likely due to shock liver Resolved, platelets back to normal 9) Sinus tachycardia Most likely due to overall illness Con't BB If blood pressure better, will increase Jhonathan Blair DO Apr 16, 2017 12:17
--- NOTE | 2017-04-16 12:45 | HHI.NPPN ---
Subjective History of Present Illness 56-year-old male with a history of end-stage renal disease, diabetes mellitus, hypertension and relatively recent CABG also has a history at times noncompliance with dialysis. Patient apparently missed his dialysis session yesterday sequently presenting to this institution with increasing shortness of breath noted to have evidence of bradycardia subsequently having a PEA requiring multiple episodes of CPR. There was significant leukocytosis on presentation blood count of 26.9, and elevated lactic acid level of 9 and a chest x-ray revealing bilateral consolidation right greater than left. Should be noted that the patient is not usually a significant fluid stef between dialysis sessions. Unfortunately patient was unable to provide any history of time of consultation as he is sedated on the ventilator. Interval History Patient still intubated however now is on CPAP this a.m. and this tolerating same. Review of Systems General General Remarks Unobtainable Objective Data Data 04/16/17 04/17/17 19:00 07:00 Intake Total 250 ml Output Total 3500 ml Balance -3250 ml IV Total 250 ml Hemodialysis 3500 ml Vital Signs Date Time Temp Pulse Resp B/P (MAP) Pulse Ox O2 Delivery O2 Flow Rate FiO2 04/16/17 11:14 95 45 04/16/17 11:00 77 04/16/17 11:00 77 16 110/56 (74) 95 04/16/17 10:30 77 04/16/17 10:30 77 22 104/56 (72) 91 04/16/17 10:00 80 14 119/64 (82) 94 04/16/17 10:00 80 04/16/17 09:30 92 04/16/17 09:30 92 18 169/79 (109) 94 04/16/17 09:00 93 21 156/77 (103) 95 04/16/17 09:00 93 04/16/17 08:30 92 23 156/81 (106) 89 04/16/17 08:30 92 04/16/17 08:01 45 04/16/17 08:01 94 44 04/16/17 08:00 40 04/16/17 08:00 98.4 82 16 160/79 (106) 95 04/16/17 08:00 82 04/16/17 07:00 73 04/16/17 07:00 73 16 115/64 (81) 95 04/16/17 06:00 82 04/16/17 04:00 45 04/16/17 04:00 88 04/16/17 04:00 98.9 88 18 159/80 (106) 92 04/16/17 03:27 95 45 04/16/17 02:00 75 04/16/17 00:10 96 50 04/16/17 00:00 87 04/16/17 00:00 98.9 86 19 148/81 (103) 96 04/16/17 00:00 50 04/15/17 22:00 74 04/15/17 20:34 100 50 04/15/17 20:00 133 04/15/17 20:00 98.2 133 16 135/77 (96) 100 04/15/17 20:00 50 04/15/17 19:00 128 18 128/78 (95) 95 04/15/17 19:00 128 04/15/17 18:00 121 23 162/84 (110) 04/15/17 18:00 121 04/15/17 17:00 121 04/15/17 17:00 121 21 144/83 (103) 04/15/17 16:00 40 04/15/17 16:00 97.5 100 20 149/72 (97) 04/15/17 16:00 100 04/15/17 15:00 124 04/15/17 15:00 124 24 128/73 (91) 04/15/17 14:44 95 40 04/15/17 14:00 127 04/15/17 14:00 127 20 130/81 (97) 04/15/17 13:00 134 24 153/87 (109) 04/15/17 13:00 134 -: 04/14/17 0410 04/15/17 0411 Physical Exam General Appearance: No Acute Distress, Comfortable Pulmonary Resp Exam: Clear Bilaterally Cardiology CV Exam: Regular, Normal Sinus Rhythm Gastrointestinal/Abdomen GI Exam: Soft, Non-Tender Extremeties Extremities Exam: Moderate Edema (in upper extrmities), Pitting Edema Assessment/Plan Problem List: (1) ESRD (end stage renal disease) on dialysis ICD Codes: N18.6 - End stage renal disease; Z99.2 - Dependence on renal dialysis Status: Chronic Plan: Patient seen postdialysis today. Fluid retention has improved significantly postdialysis but patient still has some edema. I will plan for dialysis tomorrow for additional fluid removal. Medications to be adjusted for ESRD. Avoid gadolinium. (2) Sepsis due to pneumonia ICD Codes: J18.9 - Pneumonia, unspecified organism; A41.9 - Sepsis, unspecified organism Plan: Appears to be clinically present. Defer antibiotic therapy to critical care. (3) Anemia of renal disease ICD Codes: D63.1 - Anemia in chronic kidney disease Status: Chronic Plan: Continue Epogen with HD (4) Cardiac arrest with pulseless electrical activity ICD Codes: I46.9 - Cardiac arrest, cause unspecified Status: Acute (5) HTN (hypertension) ICD Codes: I10 - Hypertension Status: Chronic Plan The exam, history, and the medical decision-making described in the above note were completed with the assistance of the ENOCH. I reviewed and agree with the findings presented. David Kennedy MD Apr 16, 2017 12:45
[2017-04-16] MEDS: hydrALAZINE HCL 20 MG/ML VIAL IV PUSH PRN (14:20)
[2017-04-16] MEDS ORDERED: fentaNYL DRIP 250 ML IV PRN (14:30)
[2017-04-16] MEDS ORDERED: LABETALOL HCL 100 MG/20 ML VIAL IV PUSH PRN (14:30)
--- NOTE | 2017-04-16 14:36 | HHI.CCPN ---
Subjective Remarks/Hospital Course 56-year-old male presents via EMS after the patient was coded in the field by the paramedics and had return of spontaneous circulation. According to EMS they received a call for shortness of breath and when they arrived the patient's symptoms progressed. They stated that the patient started of bradycardia down, eventually went into PEA with a bradycardic rhythm. They administered CPR for approximately one and a half minutes and gave the patient 1 mg of epinephrine. They then had return of spontaneous circulation with a bradycardic rhythm in the 30s. They then started pacing the patient in the field and intubated him in the field with a 7.5 endotracheal tube. Prior to arrival EMS states that the patient regained consciousness and was able to follow commands. Upon arrival the patient is intubated. He suffered another PEA arrest in the emergency department, again with the return of spontaneous circulation after 1 cycle of CPR. 04/05/17: Patient remains intubated sedated. Improved neuro exam now following commands when sedation lightened. Remains anuric received hemodialysis yesterday with 1 L removed. FiO2 requirement remains high at 65% with chest x- ray showing bilateral pulmonary edema. PEEP increased to 10, Plan for repeat hemodialysis today. Receiving 1 unit PRBC for hemoglobin of 6.9. Tachycardia resolved. Lactic acid is improved but still elevated at 2.9. Platelet count decreased to 78 most likely DIC. BUN/creatinine 29/3.73 04/06: Resting comfortable in bed. Eyes open to command. Currently afebrile. Currently on fentanyl drip at 200 g an hour. Urine output is minimal. Status post hemodialysis yesterday last 3 L Subjective 04/07: Tmax 100.2. Currently 99.8. Increased tube feed residuals overnight. Check KUB. Bowel regimen increased. Arousable on fentanyl drip. Will transition back to propofol given 1 dose of methylnaloxone today. 04/08: Tmax 99.1. No acute events overnight. Ostomy output approximately 75 cc liquid brown stool. Residuals decreased significantly. 04/09: Afebrile. Patient more restless and agitated today. Patient dyssynchronous with ventilator fentanyl infusion instituted. We'll continue to monitor ostomy stool output. Hemoccult pending. 04/10: Afebrile. Episode of Afib/flutter during the night with resolution. 04/11: Patient became agitated overnight requiring additional sedatives, propofol was added to medication regimen ,now discontinued. Patient tolerating tube feeds, underwent hemodialysis with 2.5 L off today. 04/12: Failed CPAP trials, plan for tracheostomy in the near future. Ostomy output, significantly decreased. 04/13: Neuro status unchanged. Patient tolerating tube feeds., with initiation of metoclopramide yesterday. Hemodialysis 3.5 liters off today. 04/14: CPAP trials initiated this a.m., patient tolerated for approximately 1.5 hours. Patient awake complaint of pain, oxycodone PRN initiated, and transitioning off IV pain medication. 04/15: remains intubated sedated, intermittently follows commands, but quite lethargic. Chest x-ray unchanged shows bilateral pulmonary edema. 04/16: Sedated, orally intubated on mechanical ventilation. Underwent hemodialysis today. Fentanyl 250 mics per minute which was just held. On C Pap trial. Thick pulmonary secretions. Objective Vital Signs Date Time Temp Pulse Resp B/P (MAP) Pulse Ox O2 Delivery O2 Flow Rate FiO2 04/16/17 11:14 95 45 04/16/17 11:00 77 04/16/17 11:00 16 110/56 (74) 04/16/17 08:00 98.4 Intake and Output 04/16/17 04/16/17 04/17/17 08:00 16:00 00:00 Intake Total 532 ml 250 ml Output Total 250 ml 3500 ml Balance 282 ml -3250 ml Result Diagram: 04/14/17 0410 04/15/17 0411 Imaging Last Impressions Chest X-Ray 04/06/17 0600 Signed Impressions: Service Date/Time: Thursday, April 06, 2017 02:45 - CONCLUSION: Diffuse severe bilateral airspace consolidation, increased from the prior study. Jan Temple MD Objective Remarks GENERAL 48-year-old male, currently orotracheally intubated on low-dose fentanyl infusion SKIN: Warm and dry. No rash HEAD: Normocephalic. EYES: No scleral icterus. No injection or drainage. NECK: Supple, trachea midline. No JVD or lymphadenopathy. CARDIOVASCULAR: Regular rate and rhythm. S1, S2 no S4. Without murmurs, gallops, or rubs. RESPIRATORY: Orally intubated on mechanical ventilation, Breath sounds equal bilaterally. Bilateral scattered crackles, few wheezes GASTROINTESTINAL: Abdomen soft, non-tender, nondistended. Colostomy in place in right lower quadrant, liquid brown stool output MUSCULOSKELETAL: No significant peripheral NEURO EXAM: Pupils are round, reactive to light. 3 mm. Following commands, moving extremities 4. Lethargic Line: Central Venous Catheter Side: Right Location: Internal, Jugular A/P Assessment and Plan Neuro/Psych: History of peripheral neuropathy Encephalopathy Patient comfortable on fentanyl infusion, Goal of RASS -1. Plan on transitioning from fentanyl gtt. to Precedex gtt 04/16 Daily sedation vacation Holding pregabalin 75 mg twice a day Transition to by mouth narcotics oxycodone 5 mg every 6 hours when necessary Resp: Acute hypoxemic respiratory failure Pulmonary edema - Intubated for airway protection, and cardiac arrest, now hypoxemia improving - Underlying pulmonary edema persists - Continue mechanical ventilation currently on PRVC 16/500/1.2/ Ventilator bundle. Albuterol/ipratropium aerosols every 6 hours and albuterol aerosols every 2 hours for Dyspnea -Daily C Pap trials. Add Mucomyst nebulizer treatments every 6 hours to assess with mobilizing secretions. Chest x-ray 04/15-bilateral pulmonary edema CVS PEA Cardiac arrest CABG x2 (03/01/[address] [facility]) with BERG to LAD, SVG to OM1. Coronary artery disease - left circumflex 80%, OM1 90%, LAD 80%, RCA 100% with collaterals Peripheral arterial disease Shock resolved Pulmonary edema - PEA arrest most likely secondary to hypoxia and hyperkalemia no evidence of ACS Temporary pacing discontinued -Echocardiogram EF 35-40%. Questionable left atrial shunt. Mild MR/TR Cardiology Dr. Blair following - Continue aspirin 81 mg daily - EKG and troponin x3 negative - Fluid removal with HD, repeat hemodialysis per nephrology Home medications metoprolol 50 mg twice a day, enalapril 10 mg daily and amlodipine 10 mg daily. Clonidine/labetalol/hydralazine when necessary for elevated blood pressure. GI: Transaminitis Shock liver History of colostomy Elevated total bilirubin Continue Neutra hep trickle feeds 20 cc daily Pantoprazole 40 mg IV every 12 Docusate sodium/senna liquid twice a day and senna liquid twice a day along with polyethylene glycol twice a day and lactulose daily - Transaminitis secondary to shock 1 dose of methylnaltrexone 1 04/07 Alkaline phosphatase elevated, will monitor HEME: Normocytic Anemia requiring transfusion Thrombocytopenia - Transfuse 1 U PRBCs during this hospitalization - Monitor H&H /FEN/renal: ESRD [id number] - Nephrology following Dr. Kennedy and HD per nephrology.IHD Replace as clinically indicated ID: Probable sepsis/septic shock - Empiric broad-spectrum antibiotic with piperacillin/tazobactam since 04/03. Repeat sputum Gram stain and culture on 04/16. Thick pulmonary secretions noted with bilateral infiltrates on chest x-ray. Will consult ID for antibiotic management of pneumonia -Stopped vancomycin IV on 04/16 Blood cultures 2, sputum and urine 04/04 no growth to date ENDO: Sliding-scale insulin low regimen to maintain euglycemia every 6 hours DVT GI prophylaxis - Teds SCDs - No pharmacological DVT prophylaxis due to severe anemia - Pantoprazole IV twice a day Access - right IJ CVL placed 04/04 by ED physician Dispo: No family members traceable per case management. We will consult palliative care to assist with deciding goals of therapy as patient most likely will need a tracheostomy and possibly a PEG tube. He is tolerating C Pap trials however has extremely thick secretions and concern is that he will failed attempt at extubation due to these. Level 3 Discussed with ASTRONOMY PROFESSOR at bedside Francisco J Urrutia MD Apr 16, 2017 14:35
[2017-04-16] MEDS: RESP: ACETYLCYSTEINE 10% 30 ML NEB NEB SCH ×2 (15:42→20:36)
[2017-04-16] MEDS: METOPROLOL TARTRATE 5 MG/5 ML VIAL IV PUSH PRN (16:23)
--- NOTE | 2017-04-16 17:37 | PD.CONS ---
Consult Service Palliative Care Consult Requested By Dr. Urrutia . Primary Care Physician Unknown Reason for Consultation a. To assist with evaluation and management of symptoms including: Dyspnea, pain b. To assist medical decision maker(s) with: better understanding of current medical conditions; weighing benefits/burdens of medical treatment options; making medical treatment decisions. HPI History of Present Illness This is a 56-year-old male who was admitted to the emergency department 04/03/17 after the patient coded in the field. When EMS arrived, the patient was dyspneic and bradycardic, eventually went into PEA. CPR was administered for approximately 1-1/2 minutes and the patient received 1 mg of epinephrine with return of spontaneous circulation and a bradycardic rhythm in the 30s. The patient was paced and intubated in the field. Upon arrival at the ED, patient was conscious and able to follow commands. In the ED he had another PEA arrest with return of spontaneous circulation after 1 cycle of CPR. ED course: * Vital signs: BP 117/38, RR 14, pulse 70, saturation 95% on 100% FiO2, temp 97.0. * Laboratory: WBC 14.5, Hgb 6.2, HCT 21.1, PLT 243 sodium 146, potassium 4.9, BUN 33, creatinine 4.38, magnesium 1.1, alkaline phosphatase 92, AST 143, ALT 85 , ABG pH 7.06, PCO2 43, PaO2 100, saturation 90%, HCO3 12, base excess -16.8. * Radiology: Chest x-ray showed status post sternotomy, diffuse consolidations right greater than left suspicious for pulmonary edema/CHF, cardiomegaly, appropriately placed ET tube and NG tube. He was previously seen at [facility] February 26, 2017 for chest pain and elevated troponin but declined workup and left AMA. He subsequently presented to [facility] and underwent cardiac catheterization February 27, 2017 showing a normal left main, LAD 80% included, left circumflex 80% included, OM1 90% included, RCA 100% occlusion with left-to- right collaterals. He underwent CABG 03/01/17 with BERG to the LAD and a SVG to the OM1. 2-D echocardiogram showed an ejection fraction of 35-40% with a possible atrial level shunt demonstrated with mild MR and TR. Review of Systems ROS Limitations: Clinical Condition, Intubated Past Family Social History Coded Allergies: No Known Allergies (Unverified Allergy, Unknown, 04/04/17) Past Medical History PEA arrest Anxiety Depression Hypertension Hyperlipidemia Diabetes mellitus PVD ESRD on HD // Congestive heart failure Secondary hyperparathyroid renal disease Anemia of chronic disease Ischemic colitis requiring partial colectomy and colostomy Gastritis/esophagitis Atherosclerotic vascular disease History of C. difficile Mitral regurgitation Secondary hyperparathyroidism secondary to vitamin D deficiency Gastroparesis . Past Surgical History Coronary artery bypass grafting Hemicolectomy Colostomy Permacath Cardiac stent Left upper extremity fistula Right lower extremity femoropopliteal bypass Right great toe amputation PCI status post stent 2 years ago after IN EGD . Reported Medications Reported Meds & Active Scripts Active Tramadol (Tramadol HCl) 50 Mg Tab 50 Mg PO Q6H PRN Zofran Odt (Ondansetron Odt) 4 Mg Tab 4 Mg SL Q6HR PRN Protonix (Pantoprazole Sodium) 40 Mg Tab 40 Mg PO BID Reported Lyrica (Pregabalin) 75 Mg Cap 75 Mg PO BID Enalapril (Enalapril Maleate) 10 Mg Tab 10 Mg PO DAILY Norvasc (Amlodipine Besylate) 10 Mg Tab 10 Mg PO DAILY Metoprolol Tartrate 50 Mg Tab 50 Mg PO BID Current Medications Medications (Trade) Dose Ordered Sig/Hallie Route Start Time Stop Time Status Last Admin (Brethine Inj) 1 mg UNSCH PRN SQ 04/04/17 02:30 (NS Flush) 2 ml UNSCH PRN IV FLUSH 04/04/17 02:30 04/14/17 17:19 (NS Flush) 2 ml BID IV FLUSH 04/04/17 09:00 04/16/17 07:41 (Tylenol) 650 mg Q6H PRN PO 04/04/17 02:30 (Morphine Inj) 2 mg Q2H PRN IV PUSH 04/04/17 02:30 04/14/17 15:19 (Protonix Inj) 40 mg Q12H IV PUSH 04/04/17 06:00 04/16/17 05:06 (Ativan Inj) 1 mg Q1H PRN IV PUSH 04/04/17 02:30 04/16/17 14:54 (Zofran Inj) 4 mg Q6H PRN IV PUSH 04/04/17 02:30 Miscellaneous Information 1 Q361D XX 04/04/17 02:30 04/04/17 03:00 (Chlorhexidine 2% Cloth) Taper DAILY@04 TOP 04/04/17 04:00 03/31/18 03:59 04/16/17 04:00 (Chlorhexidine 2% Cloth) 3 pack UNSCH PRN TOP 04/04/17 02:30 (Milk Of Magnesia Liq) 30 ml Q12H PRN PO 04/04/17 02:30 (Dulcolax Supp) 10 mg DAILY PRN RECTAL 04/04/17 02:30 (Lactulose Liq) 30 ml DAILY PRN PO 04/04/17 02:30 (Peridex 0.12% Liq) 15 ml BID@08,20 MT 04/04/17 08:00 04/16/17 07:41 Piperacillin Sod/ Tazobactam Sod 50 ml @ 200 mls/hr Q6H IV 04/04/17 04:00 04/16/17 16:00 Pharmacy Profile Note 0 ml @ 0 mls/hr UNSCH OTHER 04/04/17 02:45 Sodium Chloride 1,000 ml @ 0 mls/hr Q0M PRN OTHER 04/04/17 11:36 04/09/17 16:35 Sodium Chloride 1,000 ml @ 200 mls/hr Q5H PRN IV 04/04/17 11:36 Sodium Chloride 1,000 ml @ 0 mls/hr Q0M PRN OTHER 04/04/17 11:36 (Mannitol Inj) 12.5 gm UNSCH PRN IV 04/04/17 11:45 Albumin Human 100 ml @ 60 mls/hr UNSCH PRN IV 04/04/17 11:45 04/11/17 11:21 (NS Flush) 5 ml UNSCH PRN IV FLUSH 04/04/17 11:45 (Heparin Inj) UNSCH PRN .XX 04/04/17 11:45 (Gentamicin (Dialysis) Inj) 20 mg UNSCH PRN OTHER 04/04/17 11:45 (Zofran Inj) 4 mg UNSCH PRN IV PUSH 04/04/17 11:45 (Tylenol) 650 mg UNSCH PRN PO 04/04/17 11:45 04/06/17 23:53 (Benadryl) 25 mg UNSCH PRN PO 04/04/17 11:45 (Nitrostat Sl) 0.4 mg UNSCH PRN SL 04/04/17 11:45 (Catapres) 0.1 mg UNSCH PRN PO 04/04/17 11:45 04/16/17 14:20 (Gelfoam 12 Mm/7 Mm Top) 1 foam UNSCH PRN TOP 04/04/17 11:45 04/16/17 11:04 (Epogen Inj) 10,000 units MoWeFr SQ 04/04/17 20:00 04/16/17 11:05 (Aspirin Chew) 81 mg DAILY CHEW 04/05/17 09:00 04/16/17 07:40 (Apresoline Inj) 10 mg Q1HR PRN IV PUSH 04/06/17 15:00 04/16/17 14:20 (Nitroglycerin 2% Oint) 2 inch Q6HR PRN TOPICAL 04/06/17 15:00 (Beneprotein Powder) 1 pack TID G-TUBE 04/06/17 18:00 04/16/17 13:00 (Albuterol Neb) 2.5 mg Q2HR NEB PRN NEB 04/06/17 15:15 (Colace Liq) 100 mg Q12HR PO 04/06/17 21:00 04/15/17 19:47 (Senna Liq) 8.8 mg BID PO 04/06/17 21:00 04/15/17 19:47 (Miralax) 17 gm BID NG 04/07/17 21:00 04/15/17 19:47 (Lactulose Liq) 30 ml DAILY PO 04/08/17 09:00 04/16/17 07:40 (D50w (Vial) Inj) 50 ml UNSCH PRN IV PUSH 04/07/17 12:30 (Glucagon Inj) 1 mg UNSCH PRN OTHER 04/07/17 12:30 (NovoLIN R SUPPLEMENTAL SCALE) 1 Q6HR SQ 04/07/17 18:00 04/16/17 05:06 Vancomycin HCl 1000 mg/Sodium Chloride 250 ml @ 250 mls/hr WITH DIALYSIS IV 04/09/17 13:00 Future hold 04/16/17 11:00 (Lopressor) 50 mg Q12HR PO 04/11/17 21:00 04/16/17 07:41 (Reglan Inj) 5 mg Q8HR IV 04/12/17 14:30 04/16/17 13:37 (Lopressor Inj) 5 mg Q5M PRN IV PUSH 04/14/17 02:30 04/16/17 16:23 Dexmedetomidine HCl 200 mcg/ Sodium Chloride 52 ml @ 3.63 mls/hr TITRATE PRN IV 04/14/17 18:00 04/16/17 15:56 (Roxicodone Intensol Liq) 5 mg Q6H PRN PO 04/14/17 17:45 (Trandate Inj) 20 mg Q4H PRN IV PUSH 04/16/17 14:30 (Norvasc) 10 mg DAILY PO 04/17/17 09:00 Fentanyl Citrate 250 ml @ 5 mls/hr TITRATE PRN IV 04/16/17 14:30 (Mucomyst 10% Neb) 2 ml Q6HR NEB NEB 04/16/17 16:00 . Family History Per medical records no history of early onset coronary disease. Patient intubated sedated, further information unavailable. . Substance Use Tobacco: Smoked about one half pack per day for most of his adult life. Alcohol: Drinks alcohol occasionally. Prescription med abuse: No history of prescription drug abuse. Illicits: History of marijuana smoking. . Psychosocial History Patient is a [place] . He is reported to have no family by his close friend , Aiyana Hendrickson, whom he has lived next door to for several years. She states he has never been and has no children. She thinks he originally came from [place], but knows nothing else about his past. . Spiritual/Cultural Factors Spirituality had not been important to him. Hazard Waste Handler is available. . Living Will: Never completed Health Care Surrogate: Never completed Durable Power of Cosmetic Sales Consultant: Never completed Physical Exam Vital Signs Date Time Temp Pulse Resp B/P (MAP) Pulse Ox O2 Delivery O2 Flow Rate FiO2 04/16/17 15:23 93 60 04/16/17 15:00 111 23 158/70 (99) 88 04/16/17 15:00 111 04/16/17 14:45 111 24 174/80 (111) 99 04/16/17 14:45 45 04/16/17 14:30 108 04/16/17 14:30 108 31 172/85 (114) 92 04/16/17 14:15 101 25 205/86 (125) 91 04/16/17 14:00 94 04/16/17 14:00 94 19 145/76 (99) 94 04/16/17 13:46 91 18 140/73 (95) 95 04/16/17 13:30 100 04/16/17 13:30 100 25 179/84 (115) 100 04/16/17 13:15 91 18 133/65 (87) 95 04/16/17 13:00 92 04/16/17 13:00 92 18 138/65 (89) 94 04/16/17 12:45 91 18 141/67 (91) 94 04/16/17 12:30 91 04/16/17 12:30 91 18 160/73 (102) 96 04/16/17 12:15 90 20 159/74 (102) 95 04/16/17 12:00 40 04/16/17 12:00 87 04/16/17 12:00 98.2 87 18 166/75 (105) 96 04/16/17 11:14 95 45 04/16/17 11:00 77 04/16/17 11:00 77 16 110/56 (74) 95 04/16/17 10:30 77 04/16/17 10:30 77 22 104/56 (72) 91 04/16/17 10:00 80 14 119/64 (82) 94 04/16/17 10:00 80 04/16/17 09:30 92 04/16/17 09:30 92 18 169/79 (109) 94 04/16/17 09:00 93 21 156/77 (103) 95 04/16/17 09:00 93 04/16/17 08:30 92 23 156/81 (106) 89 04/16/17 08:30 92 04/16/17 08:01 45 04/16/17 08:01 94 44 04/16/17 08:00 40 04/16/17 08:00 98.4 82 16 160/79 (106) 95 04/16/17 08:00 82 04/16/17 07:00 73 04/16/17 07:00 73 16 115/64 (81) 95 04/16/17 06:00 82 04/16/17 04:00 45 04/16/17 04:00 88 04/16/17 04:00 98.9 88 18 159/80 (106) 92 04/16/17 03:27 95 45 04/16/17 02:00 75 04/16/17 00:10 96 50 04/16/17 00:00 87 04/16/17 00:00 98.9 86 19 148/81 (103) 96 04/16/17 00:00 50 04/15/17 22:00 74 04/15/17 20:34 100 50 04/15/17 20:00 133 04/15/17 20:00 98.2 133 16 135/77 (96) 100 04/15/17 20:00 50 04/15/17 19:00 128 18 128/78 (95) 95 04/15/17 19:00 128 04/15/17 18:00 121 23 162/84 (110) 04/15/17 18:00 121 04/15/17 17:00 121 04/15/17 17:00 121 21 144/83 (103) 04/16/17 04/17/17 19:00 07:00 Intake Total 250 ml Output Total 3500 ml Balance -3250 ml IV Total 250 ml Hemodialysis 3500 ml Exam CONSTITUTIONAL/GENERAL: This is a thin middle-aged male, intubated, sedated. TUBES/LINES/DRAINS: Right jugular central line, PIV right forearm, Foreman catheter, ETT SKIN: No jaundice, rashes, or lesions. No wounds seen anteriorly. Skin temperature appropriate. Not diaphoretic. HEAD: Atraumatic. Normocephalic. EYES: Pupils equal and round and reactive. No scleral icterus. No injection or drainage. Fundi not examined. ENT: Nose without bleeding or purulent drainage. Orally intubated NECK: Trachea midline. Supple, nontender. No palpable thyroid enlargement or nodularity. CARDIOVASCULAR: Regular rate and rhythm without murmurs, gallops, or rubs. No JVD. Peripheral pulses symmetric. RESPIRATORY/CHEST: Symmetric, unlabored respirations. Clear to auscultation. Breath sounds equal bilaterally. No wheezes, rales, or rhonchi. GASTROINTESTINAL: Abdomen soft, non-tender, nondistended. Colostomy intact draining brown stool. No hepato-splenomegaly, or palpable masses. Bowel sounds present. GENITOURINARY: Without palpable bladder distension. Foreman catheter in place. MUSCULOSKELETAL: Extremities without clubbing, cyanosis, or edema. No mottling or clubbing. NEUROLOGICAL: Intubated, sedated. PSYCHIATRIC: Sedated. . Diagnostic Tests Laboratory Laboratory Tests Test 04/14/17 04:10 04/15/17 04:11 04/15/17 05:20 White Blood Count 10.3 TH/MM3 (4.0-11.0) Red Blood Count 3.22 MIL/MM3 (4.50-5.90) Hemoglobin 9.1 GM/DL (13.0-17.0) Hematocrit 27.7 % (39.0-51.0) Mean Corpuscular Volume 85.9 FL (80.0-100.0) Mean Corpuscular Hemoglobin 28.4 PG (27.0-34.0) Mean Corpuscular Hemoglobin Concent 33.1 % (32.0-36.0) Red Cell Distribution Width 16.8 % (11.6-17.2) Platelet Count 201 TH/MM3 (150-450) Mean Platelet Volume 8.9 FL (7.0-11.0) Blood Urea Nitrogen 29 MG/DL (7-18) 41 MG/DL (7-18) Creatinine 3.41 MG/DL (0.60-1.30) 4.58 MG/DL (0.60-1.30) Random Glucose 132 MG/DL (74-106) 118 MG/DL (74-106) Albumin 2.5 GM/DL (3.4-5.0) 2.2 GM/DL (3.4-5.0) Calcium Level 8.6 MG/DL (8.5-10.1) 8.8 MG/DL (8.5-10.1) Phosphorus Level 2.0 MG/DL (2.5-4.9) 2.7 MG/DL (2.5-4.9) Magnesium Level 2.0 MG/DL (1.5-2.5) Sodium Level 140 MEQ/L (136-145) 141 MEQ/L (136-145) Potassium Level 3.1 MEQ/L (3.5-5.1) 3.3 MEQ/L (3.5-5.1) Chloride Level 99 MEQ/L (98-107) 100 MEQ/L (98-107) Carbon Dioxide Level 31.0 MEQ/L (21.0-32.0) 30.3 MEQ/L (21.0-32.0) Anion Gap 10 MEQ/L (5-15) 11 MEQ/L (5-15) Estimat Glomerular Filtration Rate 19 ML/MIN (>89) 13 ML/MIN (>89) Random Vancomycin Level 12.6 COMMENT 12.0 COMMENT Blood Gas Puncture Site RT BRACHIAL Blood Gas Patient Temperature 98.6 Blood Gas HCO3 29 mmol/L (22-26) Blood Gas Base Excess 4.4 mmol/L (-2-2) Blood Gas Oxygen Saturation 91 % (90-100) Arterial Blood pH 7.41 (7.380-7.420) Arterial Blood Partial Pressure CO2 46 mmHg (38-42) Arterial Blood Partial Pressure O2 70 mmHg (61-120) Arterial Blood Oxygen Content 10.9 Vol % (12.0-20.0) Arterial Blood Carboxyhemoglobin 1.7 % (0-4) Arterial Blood Methemoglobin 1.7 % (0-2) Blood Gas Hemoglobin 8.5 G/DL (12.0-16.0) Oxygen Delivery Device VENTILATOR Blood Gas Ventilator Setting SEE COMMENT Blood Gas Inspired Oxygen 50 % . Result Diagram: 04/14/17 0410 04/15/17 0411 Microbiology Microbiology Date/Time Source Procedure Growth Status 04/16/17 15:30 Sputum Endotracheal Gram Stain Pending Received 04/16/17 15:30 Sputum Endotracheal Sputum Culture Pending Received Imaging Last Impressions Chest X-Ray 04/15/17 0600 Signed Impressions: Service Date/Time: Saturday, April 15, 2017 04:14 - CONCLUSION: No significant change has occurred. Jacob French MD Abdomen X-Ray 04/07/17 0000 Signed Impressions: Service Date/Time: Friday, April 07, 2017 13:03 - CONCLUSION: 1. Gastrostomy catheter and nasogastric catheter are in place. 2. Nonobstructive bowel gas pattern. Justin Smith MD Procedures 04/03-intubation 04/03 right femoral artery central line placement Patient/Family Conference Present at Family Conference: Spoke with patient's friend, Aiyana Hendrickson, via telephone. She provided patient' s prior history. Palliative care purpose and focus was discussed with review of the below mentioned items. She states that she will be willing to be decision-maker, wishes to consider. Patient's previously stated wishes overnight and requests a call back tomorrow to arrange a meeting for Sunday to discuss options. All questions were answered, contact information provided. . Family Conference Time (mins): 30 Family Conference Location: Telephone Issues Discussed: * Palliative care role, purpose, approach * Additional medical, psychosocial, and spiritual history * Patients general health, functional status, and cognitive changes in the months leading up to the current hospitalization * Patient/family understanding of the current medical problems * Patient/family understanding of prognosis * Patients goals of care as best understood from advance directives and/or conversations and/or values * Current medical treatment options and benefits/burdens of those options * Likely scenarios comparing ongoing aggressive care with a transition to comfort measures only * Questions answered to the best of my ability * Palliative care contact information provided Assessment and Plan Disease Oriented Problem List: (1) Peripheral vascular disease due to secondary diabetes (2) PAD (peripheral artery disease) (3) Diabetic neuropathy (4) Depression (5) Anxiety (6) CAD (coronary artery disease) (7) CHF (congestive heart failure) (8) ESRD on hemodialysis (9) DM (diabetes mellitus) (10) Anemia (11) Cardiac arrest with pulseless electrical activity (12) Hx of CABG Symptom Scale: (1) Dyspnea and respiratory abnormalities 0-10 Scale: Unable to quantify (intubated, sedated) (2) Pain, generalized 0-10 Scale: Unable to quantify (intubated, sedated) Pertinent Non-Medical Issues Psychosocial:Patient is a [place] . He is reported to have no family by his close friend, Aiyana Hendrickson, whom he has lived next door to for several years. She states he has never been and has no children. She thinks he originally came from [place], but knows nothing else about his past. . Spiritual: Spirituality was not an important consideration for him however ginseng farmer is available. Legal: He is not capacitated to make his own decisions at this time as he is intubated and sedated. Per his only supplied contact, Aiyana Hendrickson, he has no living family, was never and had no children. Ms. Hendrickson has agreed to serve as his medical decision maker. Ethical issues impacting care: None identified at this time. . Important Contacts Friend: Aiyana Byrneraul . . Prognosis His prognosis is poor. He has a long smoking history as well as medical noncompliance. He has end-stage renal disease and is on hemodialysis. He also has heart failure with a reduced ejection fraction of 35-40%. He is status post coronary artery bypass grafting and has had 2 PEA arrests since. He is failing to wean from the ventilator and is likely to have a very long hospital and rehabilitation course, and would be at risk of recurrent hospitalizations, debility and complications. . Code Status: Full Code Plan PLAN: Legal decision maker: He is not capacitated to make his own decisions at this time as he is intubated and sedated. Per his only supplied contact, Aiyana Hendrickson, he has no living family, was never and had no children. Ms. Hendrickson has agreed to serve as his medical decision maker. Goals: Aggressive by default. CODE STATUS: FULL CODE SYMPTOMS: * Dyspnea: He remains on 60% FiO2. Tolerated weaning trials for approximately 1.5 hours. He continues to show pulmonary edema on his chest x-ray. He is at significant risk for continued dyspnea secondary to tobacco use, heart failure and prolonged mechanical ventilation. Plan to discuss goals of care with decision-maker tomorrow to determine whether goals are aggressive and proceed with trach and PEG or more comfort oriented and considering withdrawal. * Pain: He has a long history of chronic pain secondary to diabetic neuropathy. He had been on a fentanyl drip for pain management and sedation but has recently been converted to Precedex with oxycodone when necessary. Patient is resting quietly at this time. SUMMARY: This is a 56-year-old male with a history of tobacco use, heart failure, cardiac arrest, end-stage renal disease on hemodialysis with a history of noncompliance who suffered a PEA arrest in the field and again in the emergency room. He remains intubated, sedated with a poor prognosis. His longtime friend and neighbor has agreed to be his decision maker and discussions will be held in the next 1-2 days to determine course of treatment, aggressive versus comfort. He would be hospice appropriate if goals were consistent. Palliative care will continue to follow the patient during hospital course as condition evolves, to assist patient/decision-maker with understanding of their medical conditions, weighing benefits/burdens of treatment options, for clarification of goals of treatment. Additionally will assist with any symptoms of palliative concern. . Thank you for the opportunity to participate in the care of Mr. Cintron. Attestation To help prompt me to consider important information that might be impacting today's encounter and assessment, information from prior notes written by myself or my colleagues may have been "brought forward" into today's note. My signature on this note, however, is an attestation that I personally performed the exam, history, and/or decision-making noted today, and, unless otherwise indicated, the interactions with patient, family, and staff as well as the review of records all occurred today. I also attest that the listed assessment and stated plan reflect my best clinical judgment today based on the combination of historical information, prior notes, and today's exam/ interactions. When time spent is documented, it refers only to time spent today by the signer, or if indicated, combined time spent today by collaborating physician/nurse practitioner. . Mervat Barreto Apr 16, 2017 5:37 pm
[2017-04-16] MEDS: RESP: ALBUTEROL 2.5 MG/3 ML NEB (PRN) NEB (20:36)
[2017-04-16] MEDS ORDERED: DEXMEDETOMIDINE INJ 1,000 MCG in SODIUM CHLOR 0.9% 250 ML INJ 240 ML IV PRN (22:30)
[2017-04-17] VITALS (16 sets, daily range): BP systolic 106–160; BP diastolic 55–75; PULSE 75–139; RESP 16–28; TEMP 97.5–99.2; O2SAT 93–100
[2017-04-17] MEDS: PIPERACIL-TAZO 2.25 GM PREMIX 50 ML IV SCH ×3 (03:18→17:15)
[2017-04-17] MEDS: CHLORHEXIDINE GLUCONATE 2 % 1 PACK (2 CLOTHS) TOP SCH (04:00)
[2017-04-17] MEDS: PANTOPRAZOLE SODIUM 40 MG VIAL IV PUSH SCH ×2 (05:02→17:00)
[2017-04-17] MEDS: METOCLOPRAMIDE HCL 10 MG/2 ML VIAL IV SCH ×2 (05:03→13:50)
[2017-04-17] MEDS: METOPROLOL TARTRATE 5 MG/5 ML VIAL IV PUSH PRN ×2 (05:03→06:35)
[2017-04-17] MEDS: RESP: ACETYLCYSTEINE 10% 30 ML NEB NEB SCH ×4 (05:04→19:55)
[2017-04-17] MEDS: RESP: ALBUTEROL 2.5 MG/3 ML NEB (PRN) NEB ×3 (05:05→19:54)
[2017-04-17] MEDS: INSULIN NovoLIN REGULAR SUPPLEMENTAL SCALE SQ SCH ×3 (05:11→17:20)
[2017-04-17] MEDS: LORazepam 2 MG/ML VIAL IV PUSH PRN ×3 (05:57→12:21)
[2017-04-17 06:03] LABS: AUTOMATED NEUTROPHIL # 7.3 TH/MM3 (1.8-7.7); BASOPHIL # 0.1 TH/MM3 (0-0.2); BASOPHIL % 1.1 % (0.0-2.0); EOSINOPHIL # 0.2 TH/MM3 (0-0.4); EOSINOPHIL % 2.4 % (0.0-4.0); HEMATOCRIT 23.2 % (39.0-51.0); HEMO FLAGS DIFF FINAL; LYMPH % 6.9 % (9.0-44.0); LYMPHOCYTE # 0.6 TH/MM3 (1.0-4.8); MEAN CELL VOLUME 84.9 FL (80.0-100.0); MEAN CORPUSCULAR HEMOGLOBIN 28.5 PG (27.0-34.0); MEAN CORPUSCULAR HGB CONC 33.6 % (32.0-36.0); NEUT % 82.6 % (16.0-70.0); PLATELET COUNT 215 TH/MM3 (150-450); RED BLOOD COUNT 2.73 MIL/MM3 (4.50-5.90); RED CELL DISTRIBUTION WIDTH 17.2 % (11.6-17.2); WHITE BLOOD COUNT 8.8 TH/MM3 (4.0-11.0)
[2017-04-17 06:29] LABS: ALT (GPT) 39 U/L (12-78); ANION GAP 9 MEQ/L (5-15); AST (GOT) 11 U/L (15-37); BICARBONATE 29.6 MEQ/L (21.0-32.0); BLOOD UREA NITROGEN 32 MG/DL (7-18); CHLORIDE 100 MEQ/L (98-107); GLOMERULAR FILTRATION RATE 16 ML/MIN (>89); POTASSIUM 3.2 MEQ/L (3.5-5.1); SODIUM (NA) 139 MEQ/L (136-145)
[2017-04-17 06:31] LABS: ALKALINE PHOSPHATASE 218 U/L (45-117); TOTAL BILIRUBIN ADULT 1.3 MG/DL (0.2-1.0)
[2017-04-17] MEDS: BENEPROTEIN POWDER 1 PACK G-TUBE SCH ×3 (08:00→17:16)
[2017-04-17] MEDS: CHLORHEXIDINE 0.12% (ORAL KIT) 15 ML CUP MT SCH (08:05)
[2017-04-17] MEDS: SODIUM CHLORIDE 0.9% FLUSH 10 ML FLUSH IV FLUSH SCH (08:05)
[2017-04-17] MEDS ORDERED: amLODIPine BESYLATE 5 MG TAB PO SCH (09:00)
--- NOTE | 2017-04-17 09:21 | HHI.NPPN ---
Subjective History of Present Illness 56-year-old male with a history of end-stage renal disease, diabetes mellitus, hypertension and relatively recent CABG also has a history at times noncompliance with dialysis. Patient apparently missed his dialysis session yesterday sequently presenting to this institution with increasing shortness of breath noted to have evidence of bradycardia subsequently having a PEA requiring multiple episodes of CPR. There was significant leukocytosis on presentation blood count of 26.9, and elevated lactic acid level of 9 and a chest x-ray revealing bilateral consolidation right greater than left. Should be noted that the patient is not usually a significant fluid stef between dialysis sessions. Unfortunately patient was unable to provide any history of time of consultation as he is sedated on the ventilator. Interval History Pt seen during HD Agitated, still intubated Review of Systems General General Remarks Unobtainable Objective Data Data Vital Signs Date Time Temp Pulse Resp B/P (MAP) Pulse Ox O2 Delivery O2 Flow Rate FiO2 04/17/17 08:00 77 04/17/17 08:00 50 04/17/17 08:00 97.5 78 17 139/72 (94) 100 04/17/17 07:43 100 50 04/17/17 06:00 139 04/17/17 04:53 98 50 04/17/17 04:00 112 04/17/17 04:00 60 04/17/17 04:00 98.9 112 17 135/67 (89) 100 04/17/17 02:00 121 04/17/17 00:08 97 50 04/17/17 00:00 60 04/17/17 00:00 98.7 75 16 106/55 (72) 99 04/17/17 00:00 75 04/16/17 22:00 75 04/16/17 20:28 100 60 04/16/17 20:00 92 04/16/17 20:00 97.8 92 18 126/67 (86) 98 04/16/17 20:00 60 04/16/17 18:00 93 39 98/62 (74) 95 04/16/17 18:00 93 04/16/17 17:00 131 17 100/66 (77) 97 04/16/17 17:00 131 04/16/17 16:00 137 04/16/17 16:00 45 04/16/17 16:00 98.2 137 20 135/73 (93) 96 04/16/17 15:23 93 60 04/16/17 15:00 111 23 158/70 (99) 88 04/16/17 15:00 111 04/16/17 14:45 111 24 174/80 (111) 99 04/16/17 14:45 45 04/16/17 14:30 108 04/16/17 14:30 108 31 172/85 (114) 92 04/16/17 14:15 101 25 205/86 (125) 91 04/16/17 14:00 94 04/16/17 14:00 94 19 145/76 (99) 94 04/16/17 13:46 91 18 140/73 (95) 95 04/16/17 13:30 100 04/16/17 13:30 100 25 179/84 (115) 100 04/16/17 13:15 91 18 133/65 (87) 95 04/16/17 13:00 92 04/16/17 13:00 92 18 138/65 (89) 94 04/16/17 12:45 91 18 141/67 (91) 94 04/16/17 12:30 91 04/16/17 12:30 91 18 160/73 (102) 96 04/16/17 12:15 90 20 159/74 (102) 95 04/16/17 12:00 40 04/16/17 12:00 87 04/16/17 12:00 98.2 87 18 166/75 (105) 96 04/16/17 11:14 95 45 04/16/17 11:00 77 04/16/17 11:00 77 16 110/56 (74) 95 04/16/17 10:30 77 04/16/17 10:30 77 22 104/56 (72) 91 04/16/17 10:00 80 14 119/64 (82) 94 04/16/17 10:00 80 04/16/17 09:30 92 04/16/17 09:30 92 18 169/79 (109) 94 -: 04/17/17 0523 04/17/17 0523 Microbiology 04/16/17 Gram Stain - Final, Resulted 04/16/17 Sputum Culture, Resulted Pending Imaging Last Impressions Chest X-Ray 04/15/17 0600 Signed Impressions: Service Date/Time: Saturday, April 15, 2017 04:14 - CONCLUSION: No significant change has occurred. Jacob French MD Abdomen X-Ray 04/07/17 0000 Signed Impressions: Service Date/Time: Friday, April 07, 2017 13:03 - CONCLUSION: 1. Gastrostomy catheter and nasogastric catheter are in place. 2. Nonobstructive bowel gas pattern. Justin Smith MD Medication Review Current Medications Medications (Trade) Dose Ordered Sig/Hallie Route Start Time Stop Time Status Last Admin (Brethine Inj) 1 mg UNSCH PRN SQ 04/04/17 02:30 (NS Flush) 2 ml UNSCH PRN IV FLUSH 04/04/17 02:30 04/14/17 17:19 (NS Flush) 2 ml BID IV FLUSH 04/04/17 09:00 04/17/17 08:05 (Tylenol) 650 mg Q6H PRN PO 04/04/17 02:30 (Morphine Inj) 2 mg Q2H PRN IV PUSH 04/04/17 02:30 04/14/17 15:19 (Protonix Inj) 40 mg Q12H IV PUSH 04/04/17 06:00 04/17/17 05:02 (Ativan Inj) 1 mg Q1H PRN IV PUSH 04/04/17 02:30 04/17/17 08:54 (Zofran Inj) 4 mg Q6H PRN IV PUSH 04/04/17 02:30 Miscellaneous Information 1 Q361D XX 04/04/17 02:30 04/04/17 03:00 (Chlorhexidine 2% Cloth) Taper DAILY@04 TOP 04/04/17 04:00 03/31/18 03:59 04/17/17 04:00 (Chlorhexidine 2% Cloth) 3 pack UNSCH PRN TOP 04/04/17 02:30 (Milk Of Magnesia Liq) 30 ml Q12H PRN PO 04/04/17 02:30 (Dulcolax Supp) 10 mg DAILY PRN RECTAL 04/04/17 02:30 (Lactulose Liq) 30 ml DAILY PRN PO 04/04/17 02:30 (Peridex 0.12% Liq) 15 ml BID@08,20 MT 04/04/17 08:00 04/17/17 08:05 Piperacillin Sod/ Tazobactam Sod 50 ml @ 200 mls/hr Q6H IV 04/04/17 04:00 04/17/17 03:18 Pharmacy Profile Note 0 ml @ 0 mls/hr UNSCH OTHER 04/04/17 02:45 Sodium Chloride 1,000 ml @ 0 mls/hr Q0M PRN OTHER 04/04/17 11:36 04/09/17 16:35 Sodium Chloride 1,000 ml @ 200 mls/hr Q5H PRN IV 04/04/17 11:36 Sodium Chloride 1,000 ml @ 0 mls/hr Q0M PRN OTHER 04/04/17 11:36 (Mannitol Inj) 12.5 gm UNSCH PRN IV 04/04/17 11:45 Albumin Human 100 ml @ 60 mls/hr UNSCH PRN IV 04/04/17 11:45 04/11/17 11:21 (NS Flush) 5 ml UNSCH PRN IV FLUSH 04/04/17 11:45 (Heparin Inj) UNSCH PRN .XX 04/04/17 11:45 (Gentamicin (Dialysis) Inj) 20 mg UNSCH PRN OTHER 04/04/17 11:45 (Zofran Inj) 4 mg UNSCH PRN IV PUSH 04/04/17 11:45 (Tylenol) 650 mg UNSCH PRN PO 04/04/17 11:45 04/06/17 23:53 (Benadryl) 25 mg UNSCH PRN PO 04/04/17 11:45 (Nitrostat Sl) 0.4 mg UNSCH PRN SL 04/04/17 11:45 (Catapres) 0.1 mg UNSCH PRN PO 04/04/17 11:45 04/16/17 14:20 (Gelfoam 12 Mm/7 Mm Top) 1 foam UNSCH PRN TOP 04/04/17 11:45 04/16/17 11:04 (Epogen Inj) 10,000 units MoWeFr SQ 04/04/17 20:00 04/16/17 11:05 (Aspirin Chew) 81 mg DAILY CHEW 04/05/17 09:00 04/16/17 07:40 (Apresoline Inj) 10 mg Q1HR PRN IV PUSH 04/06/17 15:00 04/16/17 14:20 (Nitroglycerin 2% Oint) 2 inch Q6HR PRN TOPICAL 04/06/17 15:00 (Beneprotein Powder) 1 pack TID G-TUBE 04/06/17 18:00 04/16/17 17:51 (Albuterol Neb) 2.5 mg Q2HR NEB PRN NEB 04/06/17 15:15 04/17/17 07:39 (Colace Liq) 100 mg Q12HR PO 04/06/17 21:00 04/16/17 19:47 (Senna Liq) 8.8 mg BID PO 04/06/17 21:00 04/16/17 19:48 (Miralax) 17 gm BID NG 04/07/17 21:00 04/16/17 19:47 (Lactulose Liq) 30 ml DAILY PO 04/08/17 09:00 04/16/17 07:40 (D50w (Vial) Inj) 50 ml UNSCH PRN IV PUSH 04/07/17 12:30 (Glucagon Inj) 1 mg UNSCH PRN OTHER 04/07/17 12:30 (NovoLIN R SUPPLEMENTAL SCALE) 1 Q6HR SQ 04/07/17 18:00 04/17/17 05:11 Vancomycin HCl 1000 mg/Sodium Chloride 250 ml @ 250 mls/hr WITH DIALYSIS IV 04/09/17 13:00 Future hold 04/16/17 11:00 (Lopressor) 50 mg Q12HR PO 04/11/17 21:00 04/16/17 19:48 (Reglan Inj) 5 mg Q8HR IV 04/12/17 14:30 04/17/17 05:03 (Lopressor Inj) 5 mg Q5M PRN IV PUSH 04/14/17 02:30 04/17/17 06:35 (Roxicodone Intensol Liq) 5 mg Q6H PRN PO 04/14/17 17:45 (Trandate Inj) 20 mg Q4H PRN IV PUSH 04/16/17 14:30 (Norvasc) 10 mg DAILY PO 04/17/17 09:00 Fentanyl Citrate 250 ml @ 5 mls/hr TITRATE PRN IV 04/16/17 14:30 04/17/17 05:30 (Mucomyst 10% Neb) 2 ml Q6HR NEB NEB 04/16/17 16:00 12/12/17 07:41 Dexmedetomidine HCl 1000 mcg/ Sodium Chloride 250 ml @ 3.49 mls/hr TITRATE PRN IV 04/16/17 22:30 04/17/17 01:50 Physical Exam General Appearance: Pale, Anxious, Malnourished Pulmonary Resp Exam: Clear Bilaterally Cardiology CV Exam: Regular, Normal Sinus Rhythm Gastrointestinal/Abdomen GI Exam: Soft, Non-Tender Extremeties Extremities Exam: Moderate Edema (in upper extrmities), Pitting Edema Assessment/Plan Problem List: (1) ESRD (end stage renal disease) on dialysis ICD Codes: N18.6 - End stage renal disease; Z99.2 - Dependence on renal dialysis Status: Chronic Plan: Pt seen during HD today. Volume much improved. Potential plan for trach/PEG in the near future. Will plan for next HD on KCl ordered--on 4K bath Medications to be adjusted for ESRD. Avoid gadolinium. (2) Sepsis due to pneumonia ICD Codes: J18.9 - Pneumonia, unspecified organism; A41.9 - Sepsis, unspecified organism Plan: Appears to be clinically present. Defer antibiotic therapy to critical care. (3) Anemia of renal disease ICD Codes: D63.1 - Anemia in chronic kidney disease Status: Chronic Plan: Continue Epogen with HD (4) Cardiac arrest with pulseless electrical activity ICD Codes: I46.9 - Cardiac arrest, cause unspecified Status: Acute (5) HTN (hypertension) ICD Codes: I10 - Hypertension Status: Chronic Eugenie Britton Apr 17, 2017 09:21
[2017-04-17] MEDS: hydrALAZINE HCL 20 MG/ML VIAL IV PUSH PRN ×2 (09:47→13:50)
[2017-04-17] MEDS: GELATIN 12 MM/7 MM FOAM TOP PRN (10:48)
[2017-04-17] MEDS ORDERED: POTASSIUM CHLORIDE 25 MEQ EFFERVESCENT TAB PO ONE (11:00)
--- NOTE | 2017-04-17 11:03 | PD.ID.CON ---
History of Present Illness Service ID Consult Requested By Dr Urrutia Reason for Consult abx management Primary Care Physician Unknown Diagnoses: History of Present Illness 56 yo male with multiple med problems including ESRD, on HD, essentially anuric presented post code in the field (bradycardia) 2 weeks ago Pt remains on vent since admission, He is having intermittent low grade fevers He has diffuse alveolar and interstitial infiltrates on CXR, he remains on 50% FiO2 his sputum is purulent and is growing a GNB Pt was on zosyn since admission he also has significant increase of stool output into 400-600 range ans his C.diff test is P Review of Systems ROS Limitations: Clinical Condition, Intubated, Altered Mental Status, Unresponsive Past Family Social History Allergies: Coded Allergies: No Known Allergies (Unverified Allergy, Unknown, 04/04/17) Past Medical History End-stage renal disease Congestive heart failure Hypertension Secondary hyperparathyroidism renal disease Diabetes mellitus Peripheral arterial disease/peripheral vascular disease Anemia renal disease Hx of ischemic colitis requiring partial colectomy and colostomy Hx gangrene right great toe Gastritis/Esophagitis Atherosclerotic vascular disease Depression/Anxiety C Diff history Mitral regurgitation Secondary hyperparathyroidism secondary to Vitamin D Deficiency Gastroparesis Recent bacteremia--source RIJ PermCath C Unobtainable from patient presently. Social History History of marijuana and tobacco usage. Past Surgical History Status post recent CABG Bypass of the right leg. Amputation of the right big toe. Hemicolectomy/Colostomy. PCI status post stent 2 years ago after an IA. Left av fistula Right tunneled subclavian dialysis catheter placement EGD Active Ordered Medications Medications where reviewed in EMR Antibiotics Include: zosyn, vancomycin Family History Unobtainable from patient presently. Social History History of marijuana and tobacco usage. Physical Exam Vital Signs Vital Signs Date Time Temp Pulse Resp B/P (MAP) Pulse Ox O2 Delivery O2 Flow Rate FiO2 04/17/17 10:00 114 04/17/17 08:00 77 04/17/17 08:00 50 04/17/17 08:00 97.5 78 17 139/72 (94) 100 04/17/17 07:43 100 50 04/17/17 06:00 139 04/17/17 04:53 98 50 04/17/17 04:00 112 04/17/17 04:00 60 04/17/17 04:00 98.9 112 17 135/67 (89) 100 04/17/17 02:00 121 12/12/17 00:08 97 50 04/17/17 00:00 60 04/17/17 00:00 98.7 75 16 106/55 (72) 99 04/17/17 00:00 75 04/16/17 22:00 75 04/16/17 20:28 100 60 04/16/17 20:00 92 04/16/17 20:00 97.8 92 18 126/67 (86) 98 04/16/17 20:00 60 04/16/17 18:00 93 39 98/62 (74) 95 04/16/17 18:00 93 04/16/17 17:00 131 17 100/66 (77) 97 04/16/17 17:00 131 04/16/17 16:00 137 04/16/17 16:00 45 04/16/17 16:00 98.2 137 20 135/73 (93) 96 04/16/17 15:23 93 60 04/16/17 15:00 111 23 158/70 (99) 88 04/16/17 15:00 111 04/16/17 14:45 111 24 174/80 (111) 99 04/16/17 14:45 45 04/16/17 14:30 108 04/16/17 14:30 108 31 172/85 (114) 92 04/16/17 14:15 101 25 205/86 (125) 91 04/16/17 14:00 94 04/16/17 14:00 94 19 145/76 (99) 94 04/16/17 13:46 91 18 140/73 (95) 95 04/16/17 13:30 100 04/16/17 13:30 100 25 179/84 (115) 100 04/16/17 13:15 91 18 133/65 (87) 95 04/16/17 13:00 92 04/16/17 13:00 92 18 138/65 (89) 94 04/16/17 12:45 91 18 141/67 (91) 94 04/16/17 12:30 91 04/16/17 12:30 91 18 160/73 (102) 96 04/16/17 12:15 90 20 159/74 (102) 95 04/16/17 12:00 40 04/16/17 12:00 87 04/16/17 12:00 98.2 87 18 166/75 (105) 96 04/16/17 11:14 95 45 Physical Exam CONSTITUTIONAL/GENERAL: This is a thin poorly nourished patient, in no apparent distress. TUBES/LINES/DRAINS: SKIN: No jaundice, rashes, or lesions. Skin temperature appropriate. Not diaphoretic. HEAD: Atraumatic. Normocephalic. EYES: Pupils equal and round and reactive. Extraocular motions intact. No scleral icterus. No injection or drainage. Fundi not examined. ENT: Hearing not tested . Nose without bleeding or purulent drainage. Throat without visible erythema, exudates, masses, or lesions. NECK: Trachea midline. Supple, nontender. No palpable thyroid enlargement or nodularity. CARDIOVASCULAR: Regular rate and rhythm without murmurs, gallops, or rubs. No JVD. Peripheral pulses symmetric. Well healed medial sternotomy incision RESPIRATORY/CHEST: Symmetric, unlabored respirations. B/l rhonchi to auscultation. Breath sounds equal bilaterally. No wheezes, rales, or rhonchi. GASTROINTESTINAL: Abdomen soft, non-tender, nondistended. No hepato-splenomegaly , or palpable masses. No guarding. Bowel sounds present. Stomain place RLQ with large amount of liquid brown stool MUSCULOSKELETAL: Extremities without clubbing, cyanosis, or edema. No joint tenderness or effusion noted. No calf tenderness. No mottling or clubbing. LYMPHATICS: No palpable cervical or supraclavicular adenopathy. NEUROLOGICAL: sedated int'd on [facility] vent PSYCHIATRIC: unable to assess Laboratory Laboratory Tests Test 04/17/17 05:23 White Blood Count 8.8 Red Blood Count 2.73 Hemoglobin 7.8 Hematocrit 23.2 Mean Corpuscular Volume 84.9 Mean Corpuscular Hemoglobin 28.5 Mean Corpuscular Hemoglobin Concent 33.6 Red Cell Distribution Width 17.2 Platelet Count 215 Mean Platelet Volume 9.3 Neutrophils (%) (Auto) 82.6 Lymphocytes (%) (Auto) 6.9 Monocytes (%) (Auto) 7.0 Eosinophils (%) (Auto) 2.4 Basophils (%) (Auto) 1.1 Neutrophils # (Auto) 7.3 Lymphocytes # (Auto) 0.6 Monocytes # (Auto) 0.6 Eosinophils # (Auto) 0.2 Basophils # (Auto) 0.1 CBC Comment DIFF FINAL Differential Comment Blood Urea Nitrogen 32 Creatinine 3.91 Random Glucose 204 Total Protein 7.0 Albumin 2.1 Calcium Level 8.6 Alkaline Phosphatase 218 Aspartate Amino Transf (AST/SGOT) 11 Alanine Aminotransferase (ALT/SGPT) 39 Total Bilirubin 1.3 Sodium Level 139 Potassium Level 3.2 Chloride Level 100 Carbon Dioxide Level 29.6 Anion Gap 9 Estimat Glomerular Filtration Rate 16 Date/Time Source Procedure Growth Status 04/04/17 03:57 Blood Peripheral Aerobic Blood Culture - Final NO GROWTH IN 5 DAYS Complete 04/04/17 03:57 Blood Peripheral Anaerobic Blood Culture - Final NO GROWTH IN 5 DAYS Complete 04/16/17 15:30 Sputum Endotracheal Gram Stain - Final Resulted 04/16/17 15:30 Sputum Endotracheal Sputum Culture Pending Resulted 04/04/17 18:40 Urine Catheterized Urine Urine Culture - Final NO GROWTH IN 48 HOURS. Complete Result Diagram: 04/17/17 0523 04/17/17 0523 Imaging Last Impressions Chest X-Ray 04/15/17 0600 Signed Impressions: Service Date/Time: Saturday, April 15, 2017 04:14 - CONCLUSION: No significant change has occurred. Jacob French MD Abdomen X-Ray 04/07/17 0000 Signed Impressions: Service Date/Time: Friday, April 07, 2017 13:03 - CONCLUSION: 1. Gastrostomy catheter and nasogastric catheter are in place. 2. Nonobstructive bowel gas pattern. Justin Smith MD Assessment and Plan Assessment and Plan A: VAP, gram negative failing zosyn ( 14 dayu) higfh risk of resistant GNB sp in field code Multiple med probx Diarrhea, r/o C.diff Recs: dc zosyn start meropenem (high risk of resistant organisms) further rec's per clx reports Discussed Condition With RN Missy Alvarez MD Apr 17, 2017 11:03
--- NOTE | 2017-04-17 11:17 | PD.CARD.PN ---
Subjective Subjective Remarks On light sedation, agitated while on HD No change overnight Does have sinus tachycardia off and on Objective Medications Current Medications Medications (Trade) Dose Ordered Sig/Hallie Route Start Time Stop Time Status Last Admin (Brethine Inj) 1 mg UNSCH PRN SQ 04/04/17 02:30 (NS Flush) 2 ml UNSCH PRN IV FLUSH 04/04/17 02:30 04/14/17 17:19 (NS Flush) 2 ml BID IV FLUSH 04/04/17 09:00 04/17/17 08:05 (Tylenol) 650 mg Q6H PRN PO 04/04/17 02:30 (Morphine Inj) 2 mg Q2H PRN IV PUSH 04/04/17 02:30 04/14/17 15:19 (Protonix Inj) 40 mg Q12H IV PUSH 04/04/17 06:00 04/17/17 05:02 (Ativan Inj) 1 mg Q1H PRN IV PUSH 04/04/17 02:30 04/17/17 08:54 (Zofran Inj) 4 mg Q6H PRN IV PUSH 04/04/17 02:30 Miscellaneous Information 1 Q361D XX 04/04/17 02:30 04/04/17 03:00 (Chlorhexidine 2% Cloth) Taper DAILY@04 TOP 04/04/17 04:00 03/31/18 03:59 04/17/17 04:00 (Chlorhexidine 2% Cloth) 3 pack UNSCH PRN TOP 04/04/17 02:30 (Milk Of Magnesia Liq) 30 ml Q12H PRN PO 04/04/17 02:30 (Dulcolax Supp) 10 mg DAILY PRN RECTAL 04/04/17 02:30 (Lactulose Liq) 30 ml DAILY PRN PO 04/04/17 02:30 (Peridex 0.12% Liq) 15 ml BID@08,20 MT 04/04/17 08:00 04/17/17 08:05 Piperacillin Sod/ Tazobactam Sod 50 ml @ 200 mls/hr Q6H IV 04/04/17 04:00 04/17/17 03:18 Pharmacy Profile Note 0 ml @ 0 mls/hr UNSCH OTHER 04/04/17 02:45 Sodium Chloride 1,000 ml @ 0 mls/hr Q0M PRN OTHER 04/04/17 11:36 04/09/17 16:35 Sodium Chloride 1,000 ml @ 200 mls/hr Q5H PRN IV 04/04/17 11:36 Sodium Chloride 1,000 ml @ 0 mls/hr Q0M PRN OTHER 04/04/17 11:36 (Mannitol Inj) 12.5 gm UNSCH PRN IV 04/04/17 11:45 Albumin Human 100 ml @ 60 mls/hr UNSCH PRN IV 04/04/17 11:45 04/11/17 11:21 (NS Flush) 5 ml UNSCH PRN IV FLUSH 04/04/17 11:45 (Heparin Inj) UNSCH PRN .XX 04/04/17 11:45 (Gentamicin (Dialysis) Inj) 20 mg UNSCH PRN OTHER 04/04/17 11:45 (Zofran Inj) 4 mg UNSCH PRN IV PUSH 04/04/17 11:45 (Tylenol) 650 mg UNSCH PRN PO 04/04/17 11:45 04/06/17 23:53 (Benadryl) 25 mg UNSCH PRN PO 04/04/17 11:45 (Nitrostat Sl) 0.4 mg UNSCH PRN SL 04/04/17 11:45 (Catapres) 0.1 mg UNSCH PRN PO 04/04/17 11:45 04/16/17 14:20 (Gelfoam 12 Mm/7 Mm Top) 1 foam UNSCH PRN TOP 04/04/17 11:45 04/17/17 10:48 (Epogen Inj) 10,000 units MoWeFr SQ 04/04/17 20:00 04/16/17 11:05 (Aspirin Chew) 81 mg DAILY CHEW 04/05/17 09:00 04/16/17 07:40 (Apresoline Inj) 10 mg Q1HR PRN IV PUSH 04/06/17 15:00 04/17/17 09:47 (Nitroglycerin 2% Oint) 2 inch Q6HR PRN TOPICAL 04/06/17 15:00 (Beneprotein Powder) 1 pack TID G-TUBE 04/06/17 18:00 04/16/17 17:51 (Albuterol Neb) 2.5 mg Q2HR NEB PRN NEB 04/06/17 15:15 04/17/17 07:39 (Colace Liq) 100 mg Q12HR PO 04/06/17 21:00 04/16/17 19:47 (Senna Liq) 8.8 mg BID PO 04/06/17 21:00 04/16/17 19:48 (Miralax) 17 gm BID NG 04/07/17 21:00 04/16/17 19:47 (Lactulose Liq) 30 ml DAILY PO 04/08/17 09:00 04/16/17 07:40 (D50w (Vial) Inj) 50 ml UNSCH PRN IV PUSH 04/07/17 12:30 (Glucagon Inj) 1 mg UNSCH PRN OTHER 04/07/17 12:30 (NovoLIN R SUPPLEMENTAL SCALE) 1 Q6HR SQ 04/07/17 18:00 04/17/17 05:11 Vancomycin HCl 1000 mg/Sodium Chloride 250 ml @ 250 mls/hr WITH DIALYSIS IV 04/09/17 13:00 Future hold 04/16/17 11:00 (Lopressor) 50 mg Q12HR PO 04/11/17 21:00 04/16/17 19:48 (Reglan Inj) 5 mg Q8HR IV 04/12/17 14:30 04/17/17 05:03 (Lopressor Inj) 5 mg Q5M PRN IV PUSH 04/14/17 02:30 04/17/17 06:35 (Roxicodone Intensol Liq) 5 mg Q6H PRN PO 04/14/17 17:45 (Trandate Inj) 20 mg Q4H PRN IV PUSH 04/16/17 14:30 (Norvasc) 10 mg DAILY PO 04/17/17 09:00 Fentanyl Citrate 250 ml @ 5 mls/hr TITRATE PRN IV 04/16/17 14:30 04/17/17 05:30 (Mucomyst 10% Neb) 2 ml Q6HR NEB NEB 04/16/17 16:00 04/17/17 07:41 Dexmedetomidine HCl 1000 mcg/ Sodium Chloride 250 ml @ 3.49 mls/hr TITRATE PRN IV 04/16/17 22:30 04/17/17 01:50 Vital Signs / I&O Vital Signs Date Time Temp Pulse Resp B/P (MAP) Pulse Ox O2 Delivery O2 Flow Rate FiO2 04/17/17 10:00 114 04/17/17 08:00 77 04/17/17 08:00 50 04/17/17 08:00 97.5 78 17 139/72 (94) 100 04/17/17 07:43 100 50 04/17/17 06:00 139 04/17/17 04:53 98 50 04/17/17 04:00 112 04/17/17 04:00 60 04/17/17 04:00 98.9 112 17 135/67 (89) 100 04/17/17 02:00 121 04/17/17 00:08 97 50 04/17/17 00:00 60 04/17/17 00:00 98.7 75 16 106/55 (72) 99 04/17/17 00:00 75 04/16/17 22:00 75 04/16/17 20:28 100 60 04/16/17 20:00 92 04/16/17 20:00 97.8 92 18 126/67 (86) 98 04/16/17 20:00 60 04/16/17 18:00 93 39 98/62 (74) 95 04/16/17 18:00 93 04/16/17 17:00 131 17 100/66 (77) 97 04/16/17 17:00 131 04/16/17 16:00 137 04/16/17 16:00 45 04/16/17 16:00 98.2 137 20 135/73 (93) 96 04/16/17 15:23 93 60 04/16/17 15:00 111 23 158/70 (99) 88 04/16/17 15:00 111 04/16/17 14:45 111 24 174/80 (111) 99 04/16/17 14:45 45 04/16/17 14:30 108 04/16/17 14:30 108 31 172/85 (114) 92 04/16/17 14:15 101 25 205/86 (125) 91 04/16/17 14:00 94 04/16/17 14:00 94 19 145/76 (99) 94 04/16/17 13:46 91 18 140/73 (95) 95 04/16/17 13:30 100 04/16/17 13:30 100 25 179/84 (115) 100 04/16/17 13:15 91 18 133/65 (87) 95 04/16/17 13:00 92 04/16/17 13:00 92 18 138/65 (89) 94 04/16/17 12:45 91 18 141/67 (91) 94 04/16/17 12:30 91 04/16/17 12:30 91 18 160/73 (102) 96 04/16/17 12:15 90 20 159/74 (102) 95 04/16/17 12:00 40 04/16/17 12:00 87 04/16/17 12:00 98.2 87 18 166/75 (105) 96 I/O 04/16/17 04/16/17 04/16/17 04/17/17 04/17/17 04/17/17 07:00 15:00 23:00 07:00 15:00 23:00 Intake Total 532 ml 250 ml 304 ml 605 ml Output Total 250 ml 3500 ml 200 ml 300 ml Balance 282 ml -3250 ml 104 ml 305 ml IV Total 300 ml 250 ml 50 ml 402 ml Tube Feeding 172 ml 254 ml 203 ml Other 60 ml Output Urine Total 50 ml Stool Total 250 ml 150 ml 300 ml Hemodialysis 3500 ml Physical Exam GENERAL: Intubated SKIN: Warm and dry. HEAD: Atraumatic. Normocephalic. EYES: Pupils equal and round. No scleral icterus. No injection or drainage. ENT: No nasal bleeding or discharge. Mucous membranes pink and moist. NECK: Trachea midline. No JVD. CARDIOVASCULAR: Regular rate and rhythm. RESPIRATORY: No accessory muscle use. Clear to auscultation. Breath sounds equal bilaterally. GASTROINTESTINAL: Abdomen soft, non-tender, nondistended. Hepatic and splenic margins not palpable. MUSCULOSKELETAL: Extremities without clubbing, cyanosis, or edema. No obvious deformities. NEUROLOGICAL: Intubated Laboratory Laboratory Tests Test 04/17/17 05:23 White Blood Count 8.8 TH/MM3 Red Blood Count 2.73 MIL/MM3 Hemoglobin 7.8 GM/DL Hematocrit 23.2 % Mean Corpuscular Volume 84.9 FL Mean Corpuscular Hemoglobin 28.5 PG Mean Corpuscular Hemoglobin Concent 33.6 % Red Cell Distribution Width 17.2 % Platelet Count 215 TH/MM3 Mean Platelet Volume 9.3 FL Neutrophils (%) (Auto) 82.6 % Lymphocytes (%) (Auto) 6.9 % Monocytes (%) (Auto) 7.0 % Eosinophils (%) (Auto) 2.4 % Basophils (%) (Auto) 1.1 % Neutrophils # (Auto) 7.3 TH/MM3 Lymphocytes # (Auto) 0.6 TH/MM3 Monocytes # (Auto) 0.6 TH/MM3 Eosinophils # (Auto) 0.2 TH/MM3 Basophils # (Auto) 0.1 TH/MM3 CBC Comment DIFF FINAL Differential Comment Blood Urea Nitrogen 32 MG/DL Creatinine 3.91 MG/DL Random Glucose 204 MG/DL Total Protein 7.0 GM/DL Albumin 2.1 GM/DL Calcium Level 8.6 MG/DL Alkaline Phosphatase 218 U/L Aspartate Amino Transf (AST/SGOT) 11 U/L Alanine Aminotransferase (ALT/SGPT) 39 U/L Total Bilirubin 1.3 MG/DL Sodium Level 139 MEQ/L Potassium Level 3.2 MEQ/L Chloride Level 100 MEQ/L Carbon Dioxide Level 29.6 MEQ/L Anion Gap 9 MEQ/L Estimat Glomerular Filtration Rate 16 ML/MIN Assessment and Plan Problem List: (1) Hx of CABG ICD Codes: Z95.1 - Presence of aortocoronary bypass graft (2) Cardiac arrest with pulseless electrical activity ICD Codes: I46.9 - Cardiac arrest, cause unspecified Status: Acute (3) Symptomatic bradycardia ICD Codes: R00.1 - Bradycardia, unspecified Status: Acute (4) Hyperkalemia ICD Codes: E87.5 - Hyperkalemia Status: Resolved (5) Shock liver ICD Codes: K72.00 - Acute and subacute hepatic failure without coma (6) ESRD (end stage renal disease) on dialysis ICD Codes: N18.6 - End stage renal disease; Z99.2 - Dependence on renal dialysis Status: Chronic (7) Anemia of renal disease ICD Codes: D63.1 - Anemia in chronic kidney disease Status: Chronic (8) Sepsis due to pneumonia ICD Codes: J18.9 - Pneumonia, unspecified organism; A41.9 - Sepsis, unspecified organism (9) HTN (hypertension) ICD Codes: I10 - Hypertension Status: Chronic Assessment and Plan 1) PEA arrest Possible hypoxic with anemia 2) CABGx2 Trops negative, most likely non-cardiac arrest Con't ASA 3) EF 35-40%, mild MR/TR Possible due to shock, will need to eventually recheck Will wait until after extubated for better imaging 4) Shock liver 5) Anemia Unsure of cause 6) ESRD on HD 7) Symptomatic bradycardia resolved 8) Thrombocytopenia, most likely due to shock liver Resolved, platelets back to normal 9) Sinus tachycardia Most likely due to overall illness and agitation Con't BB If blood pressure better, will increase Jhonathan Blair DO Apr 17, 2017 11:17
[2017-04-17] MEDS: DOCUSATE SODIUM 100 MG/10 ML UDC PO SCH (12:13)
[2017-04-17] MEDS: METOPROLOL TARTRATE 50 MG TAB PO SCH (12:13)
[2017-04-17] MEDS: LACTULOSE SYRUP 20 GM/30 ML CUP PO SCH (12:13)
[2017-04-17] MEDS: POLYETHYLENE GLYCOL 17 GM PKG NG SCH (12:13)
[2017-04-17] MEDS: ASPIRIN 81 MG CHEW TAB CHEW SCH (12:14)
[2017-04-17] MEDS: SENNOSIDES SYRUP 8.8 MG/5 ML CUP PO SCH (12:16)
--- NOTE | 2017-04-17 12:54 | PD.CONS ---
HPI History of Present Illness This is a 56 year old who presented to the emergency room on 04/04/17 post arrest in the field and returned to spontaneous circulation patient is now intubated, has had IV sedation, and some attempt at weaning trials. Currently patient opens eyes and will shake his head yes or no to simple questions. Initially patient's hemoglobin was 8.7 on admission, now with a.m. labs show 7.8. Highest hemoglobin noted was yesterday at 9.1. This change could be related to Volemic changes; Patient is a known end-stage renal disease patient and is on hemodialysis 3 times a week. Patient has no obvious abdominal distention, no tenderness, no nausea and vomiting, colostomy bag shows very soft semi-loose brown stool, no obvious blood. Patient shows in his history to have ischemic colitis. Patient did receive blood products one unit on admission, tube feedings are being tolerated at 20 cc an hour. To my knowledge there is no family, no family present. The liver enzymes are with an normal ranges, noted mildly elevated alkaline phosphatase. (Rosie Bob) PFSH Past Medical History PEA arrest Anxiety Depression Hypertension Hyperlipidemia Diabetes mellitus PVD ESRD on HD T// Congestive heart failure Secondary hyperparathyroid renal disease Anemia of chronic disease Ischemic colitis requiring partial colectomy and colostomy Gastritis/esophagitis Atherosclerotic vascular disease History of C. difficile Mitral regurgitation Secondary hyperparathyroidism secondary to vitamin D deficiency Gastroparesis . Past Surgical History Coronary artery bypass grafting Hemicolectomy Colostomy Permacath Cardiac stent Left upper extremity fistula Right lower extremity femoropopliteal bypass Right great toe amputation PCI status post stent 2 years ago after ME EGD . (Rosie Bob) Coded Allergies: No Known Allergies (Unverified Allergy, Unknown, 04/04/17) Medications Administered Medications Medications (Trade) Dose Ordered Sig/Hallie Route PRN Reason Start Time Stop Time Status Last Admin Dose Admin Sodium Chloride (NS Flush) 2 ml UNSCH PRN IV FLUSH FLUSH AFTER USING IV ACCESS 04/04/17 02:30 04/14/17 17:19 Sodium Chloride (NS Flush) 2 ml BID IV FLUSH 04/04/17 09:00 04/17/17 08:05 Morphine Sulfate (Morphine Inj) 2 mg Q2H PRN IV PUSH PAIN SCALE 6 TO 10 04/04/17 02:30 04/14/17 15:19 Pantoprazole Sodium (Protonix Inj) 40 mg Q12H IV PUSH 04/04/17 06:00 04/17/17 05:02 Lorazepam (Ativan Inj) 1 mg Q1H PRN IV PUSH Agitation/Sedation 04/04/17 02:30 04/17/17 12:21 Miscellaneous Information 1 [id number] XX 04/04/17 02:30 04/04/17 03:00 Chlorhexidine Gluconate (Chlorhexidine 2% Cloth) Taper DAILY@04 TOP 04/04/17 04:00 03/31/18 03:59 04/17/17 04:00 Chlorhexidine Gluconate (Peridex 0.12% Liq) 15 ml BID@08,20 MT 04/04/17 08:00 04/17/17 08:05 Piperacillin Sod/ Tazobactam Sod 50 ml @ 200 mls/hr Q6H IV 04/04/17 04:00 04/17/17 12:13 Sodium Chloride 1,000 ml @ 0 mls/hr Q0M PRN OTHER For Prime & Rinse Back 04/04/17 11:36 04/09/17 16:35 Albumin Human 100 ml @ 60 mls/hr UNSCH PRN IV WITH DIALYSIS 04/04/17 11:45 04/11/17 11:21 Acetaminophen (Tylenol) 650 mg UNSCH PRN PO for headach, pain, temp > 101F 04/04/17 11:45 04/06/17 23:53 Clonidine (Catapres) 0.1 mg UNSCH PRN PO for BP > 180/100 X 2 readings 04/04/17 11:45 04/16/17 14:20 Gelatin (Gelfoam 12 Mm/7 Mm Top) 1 foam UNSCH PRN TOP SEE LABEL COMMENTS 04/04/17 11:45 04/17/17 10:48 Epoetin Quintin (Epogen Inj) 10,000 units MoWeFr SQ 04/04/17 20:00 04/16/17 11:05 Aspirin (Aspirin Chew) 81 mg DAILY CHEW 04/05/17 09:00 04/17/17 12:14 Hydralazine HCl (Apresoline Inj) 10 mg Q1HR PRN IV PUSH SBP>160, DBP>90 04/06/17 15:00 04/17/17 09:47 Protein (Beneprotein Powder) 1 pack TID G-TUBE 04/06/17 18:00 04/17/17 12:15 Albuterol Sulfate (Albuterol Neb) 2.5 mg Q2HR NEB PRN NEB dyspnea 04/06/17 15:15 04/17/17 07:39 Docusate Sodium (Colace Liq) 100 mg Q12HR PO 04/06/17 21:00 04/17/17 12:13 Sennosides (Senna Liq) 8.8 mg BID PO 04/06/17 21:00 04/17/17 12:16 Polyethylene Glycol (Miralax) 17 gm BID NG 04/07/17 21:00 04/17/17 12:13 Lactulose (Lactulose Liq) 30 ml DAILY PO 04/08/17 09:00 04/17/17 12:13 Insulin Human Regular (NovoLIN R SUPPLEMENTAL SCALE) 1 Q6HR SQ 04/07/17 18:00 04/17/17 05:11 Vancomycin HCl 1000 mg/Sodium Chloride 250 ml @ 250 mls/hr WITH DIALYSIS IV 04/09/17 13:00 Future hold 04/16/17 11:00 Metoprolol Tartrate (Lopressor) 50 mg Q12HR PO 04/11/17 21:00 04/17/17 12:13 Metoclopramide HCl (Reglan Inj) 5 mg Q8HR IV 04/12/17 14:30 04/17/17 05:03 Metoprolol Tartrate (Lopressor Inj) 5 mg Q5M PRN IV PUSH HR>100 04/14/17 02:30 04/17/17 06:35 Amlodipine Besylate (Norvasc) 10 mg DAILY PO 04/17/17 09:00 04/17/17 12:14 Fentanyl Citrate 250 ml @ 5 mls/hr TITRATE PRN IV SEDATION 04/16/17 14:30 04/17/17 05:30 Acetylcysteine (Mucomyst 10% Neb) 2 ml Q6HR NEB NEB 04/16/17 16:00 04/17/17 07:41 Dexmedetomidine HCl 1000 mcg/ Sodium Chloride 250 ml @ 3.49 mls/hr TITRATE PRN IV SEDATION 04/16/17 22:30 04/17/17 01:50 Family History Per medical records no history of early onset coronary disease. Patient intubated sedated, further information unavailable. . Social History No known family members (Rosie Bob) Review of Systems Constitutional: COMPLAINS OF: Fatigue Cardiovascular: COMPLAINS OF: Palpitations (recent arrest in the field, with return of spontaneous circulation) (Rosie Bob) GI Exam Vitals I&O Vital Signs Date Time Temp Pulse Resp B/P (MAP) Pulse Ox O2 Delivery O2 Flow Rate FiO2 04/17/17 12:28 96 50 04/17/17 10:00 114 04/17/17 08:00 77 04/17/17 08:00 50 04/17/17 08:00 97.5 78 17 139/72 (94) 100 04/17/17 07:43 100 50 04/17/17 06:00 139 04/17/17 04:53 98 50 04/17/17 04:00 112 04/17/17 04:00 60 04/17/17 04:00 98.9 112 17 135/67 (89) 100 04/17/17 02:00 121 04/17/17 00:08 97 50 04/17/17 00:00 60 04/17/17 00:00 98.7 75 16 106/55 (72) 99 04/17/17 00:00 75 04/16/17 22:00 75 04/16/17 20:28 100 60 04/16/17 20:00 92 04/16/17 20:00 97.8 92 18 126/67 (86) 98 04/16/17 20:00 60 04/16/17 18:00 93 39 98/62 (74) 95 04/16/17 18:00 93 04/16/17 17:00 131 17 100/66 (77) 97 04/16/17 17:00 131 04/16/17 16:00 137 04/16/17 16:00 45 04/16/17 16:00 98.2 137 20 135/73 (93) 96 04/16/17 15:23 93 60 04/16/17 15:00 111 23 158/70 (99) 88 04/16/17 15:00 111 04/16/17 14:45 111 24 174/80 (111) 99 04/16/17 14:45 45 04/16/17 14:30 108 04/16/17 14:30 108 31 172/85 (114) 92 04/16/17 14:15 101 25 205/86 (125) 91 04/16/17 14:00 94 04/16/17 14:00 94 19 145/76 (99) 94 04/16/17 13:46 91 18 140/73 (95) 95 04/16/17 13:30 100 04/16/17 13:30 100 25 179/84 (115) 100 04/16/17 13:15 91 18 133/65 (87) 95 04/16/17 13:00 92 04/16/17 13:00 92 18 138/65 (89) 94 I/O 04/16/17 04/16/17 04/16/17 04/17/17 04/17/17 04/17/17 06:59 14:59 22:59 06:59 14:59 22:59 Intake Total 532 ml 250 ml 304 ml 605 ml Output Total 250 ml 3500 ml 200 ml 300 ml 3500 ml Balance 282 ml -3250 ml 104 ml 305 ml -3500 ml IV Total 300 ml 250 ml 50 ml 402 ml Tube Feeding 172 ml 254 ml 203 ml Other 60 ml Output Urine Total 50 ml Stool Total 250 ml 150 ml 300 ml Hemodialysis 3500 ml 3500 ml Imaging Last Impressions Chest X-Ray 04/15/17 0600 Signed Impressions: Service Date/Time: Saturday, April 15, 2017 04:14 - CONCLUSION: No significant change has occurred. Jacob French MD Abdomen X-Ray 04/07/17 0000 Signed Impressions: Service Date/Time: Friday, April 07, 2017 13:03 - CONCLUSION: 1. Gastrostomy catheter and nasogastric catheter are in place. 2. Nonobstructive bowel gas pattern. Justin Smith MD Laboratory Test 04/17/17 05:23 White Blood Count 8.8 TH/MM3 Red Blood Count 2.73 MIL/MM3 Hemoglobin 7.8 GM/DL Hematocrit 23.2 % Mean Corpuscular Volume 84.9 FL Mean Corpuscular Hemoglobin 28.5 PG Mean Corpuscular Hemoglobin Concent 33.6 % Red Cell Distribution Width 17.2 % Platelet Count 215 TH/MM3 Mean Platelet Volume 9.3 FL Neutrophils (%) (Auto) 82.6 % Lymphocytes (%) (Auto) 6.9 % Monocytes (%) (Auto) 7.0 % Eosinophils (%) (Auto) 2.4 % Basophils (%) (Auto) 1.1 % Neutrophils # (Auto) 7.3 TH/MM3 Lymphocytes # (Auto) 0.6 TH/MM3 Monocytes # (Auto) 0.6 TH/MM3 Eosinophils # (Auto) 0.2 TH/MM3 Basophils # (Auto) 0.1 TH/MM3 CBC Comment DIFF FINAL Differential Comment Blood Urea Nitrogen 32 MG/DL Creatinine 3.91 MG/DL Random Glucose 204 MG/DL Total Protein 7.0 GM/DL Albumin 2.1 GM/DL Calcium Level 8.6 MG/DL Alkaline Phosphatase 218 U/L Aspartate Amino Transf (AST/SGOT) 11 U/L Alanine Aminotransferase (ALT/SGPT) 39 U/L Total Bilirubin 1.3 MG/DL Sodium Level 139 MEQ/L Potassium Level 3.2 MEQ/L Chloride Level 100 MEQ/L Carbon Dioxide Level 29.6 MEQ/L Anion Gap 9 MEQ/L Estimat Glomerular Filtration Rate 16 ML/MIN Date/Time Source Procedure Growth Status 04/04/17 03:57 Blood Peripheral Aerobic Blood Culture - Final NO GROWTH IN 5 DAYS Complete 04/04/17 03:57 Blood Peripheral Anaerobic Blood Culture - Final NO GROWTH IN 5 DAYS Complete 04/16/17 15:30 Sputum Endotracheal Gram Stain - Final Resulted 04/16/17 15:30 Sputum Culture - Preliminary Gram Negative Phil Resulted 04/04/17 18:40 Urine Catheterized Urine Urine Culture - Final NO GROWTH IN 48 HOURS. Complete Physical Examination HEENT: Pupils round and reactive to light; normocephalic; atraumatic; no jaundice. Secure ET tube, opens eyes to voice NECK: Neck is supple, no JVD, no lymphadenopathy. CHEST: Chest is clear to auscultation and percussion. CARDIAC: Regular rate and rhythm with no murmur gallop or rubs. ABDOMEN: Soft, nondistended, nontender; no hepatosplenomegaly; bowel sounds are present in all four quadrants., NGT with feedings at 20 cc an hour EXTREMITIES: No clubbing, cyanosis, or edema. SKIN: Pale, Normal; no rash; no jaundice. ADJUNCT PHILOSOPHY FACULTY: Shakes head yes or no to simple questions, appears to understand conversation (Rosie Bob) Assessment and Plan Assessment: (1) Anemia ICD Codes: D64.9 - Anemia, unspecified Plan: Anemia, probably related to chronic disease, end-stage renal disease. Currently patient's hemoglobin is 7.8, noted to be 8.7 on admission. No obvious bleeding noted. Please note patient has been on a baby aspirin, status post cardiac arrest with increased initial IV volume given. History of diarrhea, colitis (2) Cardiac arrest with pulseless electrical activity ICD Codes: I46.9 - Cardiac arrest, cause unspecified Status: Acute (3) Hx of ischemic bowel disease ICD Codes: Z87.19 - Personal history of other diseases of the digestive system Plan Plan Hemoccult stools via colostomy 3, monitor for any lower active GI bleeding. Depending on Hemoccult, will consider further testing Check labs/ hemoglobin and hematocrit daily, recheck CMP in the a.m. Tube feedings increase for goal rate at 50 cc an hour, will increase feedings today up to 30 cc an hour and monitor for any high residuals Notify GI for any active bleeding PPI IV Flagyl 500 mg IV every 8 Current treatment regimen will be based on findings and symptoms Patient was seen by myself and Dr. Forbes, this note was done on his behalf (Rosie Bob) Physician Comments Patient seen and examined Agree with above Continue with current supportive care Monitor labs No evidence of active bleeding at this point (Randy Forbes MD) Problem Qualifiers (1) Anemia: Qualified Codes: D64.9 - Anemia, unspecified Rosie Bob Apr 17, 2017 12:54 Randy Forbes MD Apr 17, 2017 20:30
--- NOTE | 2017-04-17 13:45 | HHI.CCPN ---
Subjective Remarks/Hospital Course 56-year-old male presents via EMS after the patient was coded in the field by the paramedics and had return of spontaneous circulation. According to EMS they received a call for shortness of breath and when they arrived the patient's symptoms progressed. They stated that the patient started of bradycardia down, eventually went into PEA with a bradycardic rhythm. They administered CPR for approximately one and a half minutes and gave the patient 1 mg of epinephrine. They then had return of spontaneous circulation with a bradycardic rhythm in the 30s. They then started pacing the patient in the field and intubated him in the field with a 7.5 endotracheal tube. Prior to arrival EMS states that the patient regained consciousness and was able to follow commands. Upon arrival the patient is intubated. He suffered another PEA arrest in the emergency department, again with the return of spontaneous circulation after 1 cycle of CPR. 04/05/17: Patient remains intubated sedated. Improved neuro exam now following commands when sedation lightened. Remains anuric received hemodialysis yesterday with 1 L removed. FiO2 requirement remains high at 65% with chest x- ray showing bilateral pulmonary edema. PEEP increased to 10, Plan for repeat hemodialysis today. Receiving 1 unit PRBC for hemoglobin of 6.9. Tachycardia resolved. Lactic acid is improved but still elevated at 2.9. Platelet count decreased to 78 most likely DIC. BUN/creatinine 29/3.73 04/06: Resting comfortable in bed. Eyes open to command. Currently afebrile. Currently on fentanyl drip at 200 g an hour. Urine output is minimal. Status post hemodialysis yesterday last 3 L Subjective 04/07: Tmax 100.2. Currently 99.8. Increased tube feed residuals overnight. Check KUB. Bowel regimen increased. Arousable on fentanyl drip. Will transition back to propofol given 1 dose of methylnaloxone today. 04/08: Tmax 99.1. No acute events overnight. Ostomy output approximately 75 cc liquid brown stool. Residuals decreased significantly. 04/09: Afebrile. Patient more restless and agitated today. Patient dyssynchronous with ventilator fentanyl infusion instituted. We'll continue to monitor ostomy stool output. Hemoccult pending. 04/10: Afebrile. Episode of Afib/flutter during the night with resolution. 04/11: Patient became agitated overnight requiring additional sedatives, propofol was added to medication regimen ,now discontinued. Patient tolerating tube feeds, underwent hemodialysis with 2.5 L off today. 04/12: Failed CPAP trials, plan for tracheostomy in the near future. Ostomy output, significantly decreased. 04/13: Neuro status unchanged. Patient tolerating tube feeds., with initiation of metoclopramide yesterday. Hemodialysis 3.5 liters off today. 04/14: CPAP trials initiated this a.m., patient tolerated for approximately 1.5 hours. Patient awake complaint of pain, oxycodone PRN initiated, and transitioning off IV pain medication. 04/15: remains intubated sedated, intermittently follows commands, but quite lethargic. Chest x-ray unchanged shows bilateral pulmonary edema. 04/16: Sedated, orally intubated on mechanical ventilation. Underwent hemodialysis today. Fentanyl 250 mics per minute which was just held. On C Pap trial. Thick pulmonary secretions. 04/17: still failing cpap. found family friend who is willing to make medical decisions. ongoing palliative discussions. Objective Vital Signs Date Time Temp Pulse Resp B/P (MAP) Pulse Ox O2 Delivery O2 Flow Rate FiO2 04/17/17 12:28 96 50 04/17/17 10:00 114 04/17/17 08:00 97.5 17 139/72 (94) Intake and Output 04/17/17 04/17/17 04/18/17 08:00 16:00 00:00 Intake Total 605 ml Output Total 300 ml 3500 ml Balance 305 ml -3500 ml Result Diagram: 04/17/17 0523 04/17/17 0523 Imaging Last Impressions Chest X-Ray 04/06/17 0600 Signed Impressions: Service Date/Time: Thursday, April 06, 2017 02:45 - CONCLUSION: Diffuse severe bilateral airspace consolidation, increased from the prior study. Jan Temple MD Objective Remarks GENERAL 48-year-old male, currently orotracheally intubated on low-dose fentanyl infusion SKIN: Warm and dry. No rash HEAD: Normocephalic. EYES: No scleral icterus. No injection or drainage. NECK: Supple, trachea midline. No JVD CARDIOVASCULAR: Regular rate and rhythm. RESPIRATORY: Orally intubated on mechanical ventilation, equal chest rise. GASTROINTESTINAL: Abdomen soft, non-tender, nondistended. Colostomy in place in right lower quadrant, liquid brown stool output MUSCULOSKELETAL: No significant peripheral NEURO EXAM: Pupils are round, reactive to light. 3 mm. Following commands, moving extremities 4. Lethargic A/P Assessment and Plan Neuro/Psych: History of peripheral neuropathy Encephalopathy Patient comfortable on fentanyl infusion, Goal of RASS -1. Daily sedation vacation Holding pregabalin 75 mg twice a day by mouth narcotics oxycodone 5 mg every 6 hours when necessary Resp: Acute hypoxemic respiratory failure - persistent. Pulmonary edema - resolved. - Intubated for airway protection, and cardiac arrest, now hypoxemia improving - Underlying pulmonary edema persists - Continue mechanical ventilation currently on PRVC 16/500/1.2/40 Ventilator bundle. Albuterol/ipratropium aerosols every 6 hours and albuterol aerosols every 2 hours for Dyspnea -Daily C Pap trials. Add Mucomyst nebulizer treatments every 6 hours to assess with mobilizing secretions. Chest x-ray 04/15-bilateral pulmonary edema will need trach if goals remain aggressive. gen surgery following along CVS s/p PEA Cardiac arrest CABG x2 (03/01/2017 at [facility]) with BERG to LAD, SVG to OM1. Coronary artery disease - left circumflex 80%, OM1 90%, LAD 80%, RCA 100% with collaterals Peripheral arterial disease Shock resolved Pulmonary edema - PEA arrest most likely secondary to hypoxia and hyperkalemia no evidence of ACS Temporary pacing discontinued -Echocardiogram EF 35-40%. Questionable left atrial shunt. Mild MR/TR Cardiology Dr. Blair following - Continue aspirin 81 mg daily - EKG and troponin x3 negative - Fluid removal with HD, repeat hemodialysis per nephrology Home medications metoprolol 50 mg twice a day, enalapril 10 mg daily and amlodipine 10 mg daily. Clonidine/labetalol/hydralazine when necessary for elevated blood pressure. GI: Transaminitis Shock liver History of colostomy Elevated total bilirubin Continue Neutra hep trickle feeds 20 cc daily Pantoprazole 40 mg IV every 12 Docusate sodium/senna liquid twice a day and senna liquid twice a day along with polyethylene glycol twice a day and lactulose daily - Transaminitis secondary to shock 1 dose of methylnaltrexone 1 04/07 Alkaline phosphatase elevated, will monitor HEME: Normocytic Anemia requiring transfusion Thrombocytopenia - Transfuse 1 U PRBCs during this hospitalization - Monitor H&H /FEN/renal: ESRD [id number] - Nephrology following Dr. Kennedy and HD per nephrology.IHD Replace as clinically indicated ID: Probable sepsis/septic shock - Empiric broad-spectrum antibiotic with piperacillin/tazobactam since 04/03. Repeat sputum Gram stain and culture on 04/16. Thick pulmonary secretions noted with bilateral infiltrates on chest x-ray. Will consult ID for antibiotic management of pneumonia -Stopped vancomycin IV on 04/16 Blood cultures 2, sputum and urine 04/04 no growth to date ENDO: Sliding-scale insulin low regimen to maintain euglycemia every 6 hours DVT GI prophylaxis - Teds SCDs - No pharmacological DVT prophylaxis due to severe anemia - Pantoprazole IV twice a day Access - right IJ CVL placed 04/04 by ED physician Dispo: No family members traceable per case management. We will consult palliative care to assist with deciding goals of therapy as patient most likely will need a tracheostomy and possibly a PEG tube. He is tolerating C Pap trials however has extremely thick secretions and concern is that he will failed attempt at extubation due to these. Ernesto Valdivia MD Apr 17, 2017 13:44
[2017-04-17] MEDS: MORPHINE SULFATE 4 MG/ML INJ IV PUSH PRN (13:50)
--- NOTE | 2017-04-17 14:02 | HHI.PR ---
Subjective Subjective Notes I am available as needed if the patient's friend decides to proceed with tracheostomy. I will follow along. Please let me know if decision is to proceed. Rodney Oreilly MD Apr 17, 2017 14:02
--- NOTE | 2017-04-17 15:38 | HHI.HCPN ---
Reason for visit a. To assist with evaluation and management of symptoms including: Dyspnea, pain, agitation b. To assist medical decision maker(s) with: better understanding of current medical conditions; weighing benefits/burdens of medical treatment options; making medical treatment decisions. Subjective/Interval History Agitated with hemodialysis this morning. Remains agitated on fentanyl 100 g per hour. Also requiring Precedex to control agitation. Failing CPAP trials due to low oxygen saturations and agitation. Pending decision on tracheostomy and PEG placement. ED course: * Vital signs: BP 160/75, RR 28, pulse 104, saturation 100% on 50 % FiO2, temp 98.7. * Laboratory: WBC 8.8, Hgb 7.8, HCT 23.2, PLT 2:15 sodium 139, potassium 3.2, BUN 32, creatinine 3.91. * Radiology: Chest x-ray showed status post sternotomy, diffuse consolidations right greater than left suspicious for pulmonary edema/CHF, cardiomegaly, appropriately placed ET tube and NG tube. Consultations: * Nephrology: End-stage renal disease on HD. Dialysis Sunday. * Infectious disease: Managing antibiotics, metronidazole, vancomycin, Zosyn. Sputum culture showing gram-negative phil, pending final culture and sensitivity. * Cardiology: PEA arrest felt to be hypoxic with anemia as a contributing factor. Ejection fraction 35-40%, sinus tachycardia, up titrating beta blockers as tolerated by blood pressure. Family/friend interactions 15:30: Longtime friend, Aiyana Hendrickson, has agreed to be the decision-maker. She made contact today and stated that she wanted to visit and have a meeting at bedside. Pending her arrival. . Advance Directives Living Will: Never completed Health Care Surrogate: Never completed Durable Power of Trimming Inspector: Never completed Objective Vital Signs Date Time Temp Pulse Resp B/P (MAP) Pulse Ox O2 Delivery O2 Flow Rate FiO2 04/17/17 14:47 100 50 04/17/17 14:00 104 04/17/17 12:28 96 50 04/17/17 12:00 50 04/17/17 12:00 104 04/17/17 12:00 98.7 104 28 160/75 (103) 97 04/17/17 10:00 114 04/17/17 08:00 77 04/17/17 08:00 50 04/17/17 08:00 97.5 78 17 139/72 (94) 100 04/17/17 07:43 100 50 04/17/17 06:00 139 04/17/17 04:53 98 50 04/17/17 04:00 112 04/17/17 04:00 60 04/17/17 04:00 98.9 112 17 135/67 (89) 100 04/17/17 02:00 121 04/17/17 00:08 97 50 04/17/17 00:00 60 04/17/17 00:00 98.7 75 16 106/55 (72) 99 04/17/17 00:00 75 04/16/17 22:00 75 04/16/17 20:28 100 60 04/16/17 20:00 92 04/16/17 20:00 97.8 92 18 126/67 (86) 98 04/16/17 20:00 60 04/16/17 18:00 93 39 98/62 (74) 95 04/16/17 18:00 93 04/16/17 17:00 131 17 100/66 (77) 97 04/16/17 17:00 131 04/16/17 16:00 137 04/16/17 16:00 45 04/16/17 16:00 98.2 137 20 135/73 (93) 96 04/16/17 15:23 93 60 Intake & Output 04/17/17 04/17/17 07:00 19:00 Intake Total 605 ml Output Total 300 ml 3500 ml Balance 305 ml -3500 ml IV Total 402 ml Tube Feeding 203 ml Stool Total 300 ml Hemodialysis 3500 ml Physical Exam CONSTITUTIONAL/GENERAL: This is a thin middle-aged male, intubated, sedated but remains agitated. TUBES/LINES/DRAINS: Right jugular central line, PIV right forearm, Foreman catheter, ETT EYES: Pupils equal and round and reactive. No scleral icterus. No injection or drainage. Fundi not examined. ENT: Nose without bleeding or purulent drainage. Orally intubated NECK: Trachea midline. Supple, nontender. No palpable thyroid enlargement or nodularity. CARDIOVASCULAR: Tachycardic rate and regular rhythm without murmurs, gallops, or rubs. No JVD. Peripheral pulses symmetric. RESPIRATORY/CHEST: Coarse, rhonchorous breath sounds, mildly tachypneic, orally intubated, mechanically ventilated. GASTROINTESTINAL: Abdomen soft, nondistended. Colostomy intact draining brown stool. No hepato-splenomegaly, or palpable masses. Bowel sounds present. GENITOURINARY: Without palpable bladder distension. Foreman catheter in place. MUSCULOSKELETAL: Extremities without clubbing, cyanosis, or edema. No mottling or clubbing. NEUROLOGICAL: Intubated, sedated. PSYCHIATRIC: Sedated but remains agitated. . Diagnostic Tests Laboratory Laboratory Tests Test 04/15/17 04:11 04/15/17 05:20 04/17/17 05:23 Blood Urea Nitrogen 41 MG/DL (7-18) 32 MG/DL (7-18) Creatinine 4.58 MG/DL (0.60-1.30) 3.91 MG/DL (0.60-1.30) Random Glucose 118 MG/DL (74-106) 204 MG/DL (74-106) Albumin 2.2 GM/DL (3.4-5.0) 2.1 GM/DL (3.4-5.0) Calcium Level 8.8 MG/DL (8.5-10.1) 8.6 MG/DL (8.5-10.1) Phosphorus Level 2.7 MG/DL (2.5-4.9) Sodium Level 141 MEQ/L (136-145) 139 MEQ/L (136-145) Potassium Level 3.3 MEQ/L (3.5-5.1) 3.2 MEQ/L (3.5-5.1) Chloride Level 100 MEQ/L (98-107) 100 MEQ/L (98-107) Carbon Dioxide Level 30.3 MEQ/L (21.0-32.0) 29.6 MEQ/L (21.0-32.0) Anion Gap 11 MEQ/L (5-15) 9 MEQ/L (5-15) Estimat Glomerular Filtration Rate 13 ML/MIN (>89) 16 ML/MIN (>89) Random Vancomycin Level 12.0 COMMENT Blood Gas Puncture Site RT BRACHIAL Blood Gas Patient Temperature 98.6 Blood Gas HCO3 29 mmol/L (22-26) Blood Gas Base Excess 4.4 mmol/L (-2-2) Blood Gas Oxygen Saturation 91 % (90-100) Arterial Blood pH 7.41 (7.380-7.420) Arterial Blood Partial Pressure CO2 46 mmHg (38-42) Arterial Blood Partial Pressure O2 70 mmHg (61-120) Arterial Blood Oxygen Content 10.9 Vol % (12.0-20.0) Arterial Blood Carboxyhemoglobin 1.7 % (0-4) Arterial Blood Methemoglobin 1.7 % (0-2) Blood Gas Hemoglobin 8.5 G/DL (12.0-16.0) Oxygen Delivery Device VENTILATOR Blood Gas Ventilator Setting SEE COMMENT Blood Gas Inspired Oxygen 50 % White Blood Count 8.8 TH/MM3 (4.0-11.0) Red Blood Count 2.73 MIL/MM3 (4.50-5.90) Hemoglobin 7.8 GM/DL (13.0-17.0) Hematocrit 23.2 % (39.0-51.0) Mean Corpuscular Volume 84.9 FL (80.0-100.0) Mean Corpuscular Hemoglobin 28.5 PG (27.0-34.0) Mean Corpuscular Hemoglobin Concent 33.6 % (32.0-36.0) Red Cell Distribution Width 17.2 % (11.6-17.2) Platelet Count 215 TH/MM3 (150-450) Mean Platelet Volume 9.3 FL (7.0-11.0) Neutrophils (%) (Auto) 82.6 % (16.0-70.0) Lymphocytes (%) (Auto) 6.9 % (9.0-44.0) Monocytes (%) (Auto) 7.0 % (0.0-8.0) Eosinophils (%) (Auto) 2.4 % (0.0-4.0) Basophils (%) (Auto) 1.1 % (0.0-2.0) Neutrophils # (Auto) 7.3 TH/MM3 (1.8-7.7) Lymphocytes # (Auto) 0.6 TH/MM3 (1.0-4.8) Monocytes # (Auto) 0.6 TH/MM3 (0-0.9) Eosinophils # (Auto) 0.2 TH/MM3 (0-0.4) Basophils # (Auto) 0.1 TH/MM3 (0-0.2) CBC Comment DIFF FINAL Differential Comment Total Protein 7.0 GM/DL (6.4-8.2) Alkaline Phosphatase 218 U/L (45-117) Aspartate Amino Transf (AST/SGOT) 11 U/L (15-37) Alanine Aminotransferase (ALT/SGPT) 39 U/L (12-78) Total Bilirubin 1.3 MG/DL (0.2-1.0) . Result Diagram: 04/17/17 0523 04/17/17 0523 Microbiology Microbiology Date/Time Source Procedure Growth Status 04/16/17 15:30 Sputum Endotracheal Gram Stain - Final Resulted 04/16/17 15:30 Sputum Culture - Preliminary Gram Negative Phil Resulted Imaging Last Impressions Chest X-Ray 04/15/17 0600 Signed Impressions: Service Date/Time: Saturday, April 15, 2017 04:14 - CONCLUSION: No significant change has occurred. Jacob French MD Abdomen X-Ray 04/07/17 0000 Signed Impressions: Service Date/Time: Friday, April 07, 2017 13:03 - CONCLUSION: 1. Gastrostomy catheter and nasogastric catheter are in place. 2. Nonobstructive bowel gas pattern. Justin Smith MD . Procedures 04/03-intubation 04/03 right femoral artery central line placement Assessment and Plan Disease Oriented Problem List: (1) Peripheral vascular disease due to secondary diabetes (2) PAD (peripheral artery disease) (3) Diabetic neuropathy (4) Depression (5) Anxiety (6) CAD (coronary artery disease) (7) CHF (congestive heart failure) (8) ESRD on hemodialysis (9) DM (diabetes mellitus) (10) Anemia (11) Cardiac arrest with pulseless electrical activity (12) Hx of CABG Symptom Scale: (1) Dyspnea and respiratory abnormalities 0-10 Scale: Unable to quantify (intubated, sedated) (2) Pain, generalized 0-10 Scale: Unable to quantify (intubated, sedated) Pertinent Non-Medical Issues Psychosocial:Patient is a [place] . He is reported to have no family by his close friend, Aiyana Hendrickson, whom he has lived next door to for several years. She states he has never been and has no children. She thinks he originally came from [place], but knows nothing else about his past. . 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 Legal: He is not capacitated to make his own decisions at this time as he is intubated and sedated. Per his only supplied contact, Aiyana Hendrickson, he has no living family, was never and had no children. Ms. Hendrickson has agreed to serve as his medical decision maker. Ethical issues impacting care: None identified at this time. . Important Contacts Friend: Aiyana Hendrickson . . Prognosis His prognosis is poor. He has a long smoking history as well as medical noncompliance. He has end-stage renal disease and is on hemodialysis. He also has heart failure with a reduced ejection fraction of 35-40%. He is status post coronary artery bypass grafting and has had 2 PEA arrests since. He is failing to wean from the ventilator and is likely to have a very long hospital and rehabilitation course, and would be at risk of recurrent hospitalizations, debility and complications. . Code Status: Full Code Plan PLAN: Legal decision maker: He is not capacitated to make his own decisions at this time as he is intubated and sedated. Per his only supplied contact, Aiyana Hendrickson, he has no living family, was never and had no children. Ms. Hendrickson has agreed to serve as his medical decision maker. Goals: Aggressive by default. CODE STATUS: FULL CODE SYMPTOMS: * Dyspnea: He remains on 60% FiO2. Tolerated weaning trials for approximately 1.5 hours. He continues to show pulmonary edema on his chest x-ray. He is at significant risk for continued dyspnea secondary to tobacco use, heart failure and prolonged mechanical ventilation. Plan to discuss goals of care with decision-maker tomorrow to determine whether goals are aggressive and proceed with trach and PEG or more comfort oriented and considering withdrawal. * Pain: He has a long history of chronic pain secondary to diabetic neuropathy. He had been on a fentanyl drip for pain management and sedation but has recently been converted to Precedex with oxycodone when necessary. Patient is resting quietly at this time. SUMMARY: This is a 56-year-old male with a history of tobacco use, heart failure, cardiac arrest, end-stage renal disease on hemodialysis with a history of noncompliance who suffered a PEA arrest in the field and again in the emergency room. He remains intubated, sedated with a poor prognosis. His longtime friend and neighbor has agreed to be his decision maker and discussions will be held in the next 1-2 days to determine course of treatment, aggressive versus comfort. He would be hospice appropriate if goals were consistent. Palliative care will continue to follow the patient during hospital course as condition evolves, to assist patient/decision-maker with understanding of their medical conditions, weighing benefits/burdens of treatment options, for clarification of goals of treatment. Additionally will assist with any symptoms of palliative concern. . Mervat Barreto Apr 17, 2017 15:38
[2017-04-17] MEDS ORDERED: metroNIDAZOLE 250 MG INJ 50 ML IV SCH (16:00)
[2017-04-17] MEDS ORDERED: ASP: ID consult, note reason in consult order PRN (16:30)
[2017-04-17] MEDS ORDERED: MISCELLANEOUS PHARMACY INFORMATION XX PRN (16:30)
[2017-04-17] MEDS ORDERED: MIDAZOLAM HCL 5 MG/5 ML VIAL IV PUSH PRN (16:30)
[2017-04-17] MEDS ORDERED: fentaNYL DRIP 250 ML IV PRN (16:30)
[2017-04-17] MEDS ORDERED: MIDAZOLAM HCL 5 MG/ML VIAL (1 ML) IV PUSH ONE (16:30)
[2017-04-17] MEDS ORDERED: MEROPENEM INJ 500 MG in SODIUM CHLORIDE 0.9% INJ 100 ML IV SCH (18:00)
--- NOTE | 2017-04-17 18:24 | HHI.DS ---
Discharge Summary Admission Date Apr 04, 2017 at 01:18 Discharge Date: Apr 17, 2017 Admitting Diagnosis pulseless electrical activity, return of spontaneous circulation, sy Brief History 56-year-old male presents via EMS after the patient was coded in the field by the paramedics and had return of spontaneous circulation. According to EMS they received a call for shortness of breath and when they arrived the patient's symptoms progressed. They stated that the patient started of bradycardia down, eventually went into PEA with a bradycardic rhythm. They administered CPR for approximately one and a half minutes and gave the patient 1 mg of epinephrine. They then had return of spontaneous circulation with a bradycardic rhythm in the 30s. They then started pacing the patient in the field and intubated him in the field with a 7.5 endotracheal tube. Prior to arrival EMS states that the patient regained consciousness and was able to follow commands. Upon arrival the patient is intubated. He suffered another PEA arrest in the emergency department, again with the return of spontaneous circulation after 1 cycle of CPR. CBC/BMP: 04/17/17 0523 04/17/17 0523 Significant Findings Laboratory Tests Test 04/15/17 04:11 04/15/17 05:20 04/17/17 05:23 Blood Urea Nitrogen 41 MG/DL (7-18) 32 MG/DL (7-18) Creatinine 4.58 MG/DL (0.60-1.30) 3.91 MG/DL (0.60-1.30) Random Glucose 118 MG/DL (74-106) 204 MG/DL (74-106) Albumin 2.2 GM/DL (3.4-5.0) 2.1 GM/DL (3.4-5.0) Potassium Level 3.3 MEQ/L (3.5-5.1) 3.2 MEQ/L (3.5-5.1) Estimat Glomerular Filtration Rate 13 ML/MIN (>89) 16 ML/MIN (>89) Blood Gas HCO3 29 mmol/L (22-26) Blood Gas Base Excess 4.4 mmol/L (-2-2) Arterial Blood Partial Pressure CO2 46 mmHg (38-42) Arterial Blood Oxygen Content 10.9 Vol % (12.0-20.0) Blood Gas Hemoglobin 8.5 G/DL (12.0-16.0) Red Blood Count 2.73 MIL/MM3 (4.50-5.90) Hemoglobin 7.8 GM/DL (13.0-17.0) Hematocrit 23.2 % (39.0-51.0) Neutrophils (%) (Auto) 82.6 % (16.0-70.0) Lymphocytes (%) (Auto) 6.9 % (9.0-44.0) Lymphocytes # (Auto) 0.6 TH/MM3 (1.0-4.8) Alkaline Phosphatase 218 U/L (45-117) Aspartate Amino Transf (AST/SGOT) 11 U/L (15-37) Total Bilirubin 1.3 MG/DL (0.2-1.0) Hospital Course 56-year-old male presents via EMS after the patient was coded in the field by the paramedics and had return of spontaneous circulation. According to EMS they received a call for shortness of breath and when they arrived the patient's symptoms progressed. They stated that the patient started of bradycardia down, eventually went into PEA with a bradycardic rhythm. They administered CPR for approximately one and a half minutes and gave the patient 1 mg of epinephrine. They then had return of spontaneous circulation with a bradycardic rhythm in the 30s. They then started pacing the patient in the field and intubated him in the field with a 7.5 endotracheal tube. Prior to arrival EMS states that the patient regained consciousness and was able to follow commands. Upon arrival the patient is intubated. He suffered another PEA arrest in the emergency department, again with the return of spontaneous circulation after 1 cycle of CPR. 04/05/17: Patient remains intubated sedated. Improved neuro exam now following commands when sedation lightened. Remains anuric received hemodialysis yesterday with 1 L removed. FiO2 requirement remains high at 65% with chest x- ray showing bilateral pulmonary edema. PEEP increased to 10, Plan for repeat hemodialysis today. Receiving 1 unit PRBC for hemoglobin of 6.9. Tachycardia resolved. Lactic acid is improved but still elevated at 2.9. Platelet count decreased to 78 most likely DIC. BUN/creatinine 29/3.73 04/06: Resting comfortable in bed. Eyes open to command. Currently afebrile. Currently on fentanyl drip at 200 g an hour. Urine output is minimal. Status post hemodialysis yesterday last 3 L Subjective 12/2: Tmax 100.2. Currently 99.8. Increased tube feed residuals overnight. Check KUB. Bowel regimen increased. Arousable on fentanyl drip. Will transition back to propofol given 1 dose of methylnaloxone today. 04/08: Tmax 99.1. No acute events overnight. Ostomy output approximately 75 cc liquid brown stool. Residuals decreased significantly. 04/09: Afebrile. Patient more restless and agitated today. Patient dyssynchronous with ventilator fentanyl infusion instituted. We'll continue to monitor ostomy stool output. Hemoccult pending. 04/10: Afebrile. Episode of Afib/flutter during the night with resolution. 04/11: Patient became agitated overnight requiring additional sedatives, propofol was added to medication regimen ,now discontinued. Patient tolerating tube feeds, underwent hemodialysis with 2.5 L off today. 04/12: Failed CPAP trials, plan for tracheostomy in the near future. Ostomy output, significantly decreased. 04/13: Neuro status unchanged. Patient tolerating tube feeds., with initiation of metoclopramide yesterday. Hemodialysis 3.5 liters off today. 04/14: CPAP trials initiated this a.m., patient tolerated for approximately 1.5 hours. Patient awake complaint of pain, oxycodone PRN initiated, and transitioning off IV pain medication. 04/15: remains intubated sedated, intermittently follows commands, but quite lethargic. Chest x-ray unchanged shows bilateral pulmonary edema. 04/16: Sedated, orally intubated on mechanical ventilation. Underwent hemodialysis today. Fentanyl 250 mics per minute which was just held. On C Pap trial. Thick pulmonary secretions. 04/17: still failing cpap. found family friend who is willing to make medical decisions. ongoing palliative discussions. friends and medical decision makers asked that the patient be transferred to the hospice care facility and terminally extubated there. we agree that this is medically appropriate. patient will be discharged. Pt Condition on Discharge: Guarded Discharge Disposition: Hospice/Med Facility Discharge Instructions DIET: Follow Instructions for: As Tolerated, No Restrictions Activities you can perform: Regular-No Restrictions Ernesto Valdivia MD Apr 17, 2017 18:24
== END 2017-04-17 21:05 | disposition hospice, inpatient (51) | DRG 870 ==
LOC: NEPE 23:51 → NEDA 04-04 01:18 → HIMN 04-04 02:50
PROVIDERS: ADMIT Internal Medicine Critical Care Medicine; ATTEND Internal Medicine Critical Care Medicine
PROC: 5A1955Z Respiratory Ventilation, Greater than 96 Consecutive Hours (ICD-10-PCS; principal; 2017-04-03)
PROC: 04HY32Z Insertion of Monitoring Device into Lower Artery, Percutaneous Approach (ICD-10-PCS; 2017-04-04)
PROC: 02HV33Z Insertion of Infusion Device into Superior Vena Cava, Percutaneous Approach (ICD-10-PCS; 2017-04-04)
PROC: 30233K1 Transfusion of Nonautologous Frozen Plasma into Peripheral Vein, Percutaneous Approach (ICD-10-PCS; 2017-04-04)
PROC: 30233N1 Transfusion of Nonautologous Red Blood Cells into Peripheral Vein, Percutaneous Approach (ICD-10-PCS; 2017-04-04)
PROC: 5A1D70Z Performance of Urinary Filtration, Intermittent, Less than 6 Hours Per Day (ICD-10-PCS; 2017-04-05)
DX: A41.9 Sepsis, unspecified organism (principal); J96.01 Acute respiratory failure with hypoxia; K72.00 Acute and subacute hepatic failure without coma; I46.9 Cardiac arrest, cause unspecified; D65 Disseminated intravascular coagulation [defibrination syndrome]; J18.9 Pneumonia, unspecified organism; R65.21 Severe sepsis with septic shock; G93.40 Encephalopathy, unspecified; N18.6 End stage renal disease; I13.2 Hypertensive heart and chronic kidney disease with heart failure and with stage 5 chronic kidney disease, or end stage renal disease; J95.851 Ventilator associated pneumonia; E87.2 Acidosis; N25.81 Secondary hyperparathyroidism of renal origin; I48.92 Unspecified atrial flutter; D69.59 Other secondary thrombocytopenia; E83.42 Hypomagnesemia; E87.5 Hyperkalemia; I08.1 Rheumatic disorders of both mitral and tricuspid valves; I25.10 Atherosclerotic heart disease of native coronary artery without angina pectoris; E78.5 Hyperlipidemia, unspecified; I25.2 Old myocardial infarction; Z51.5 Encounter for palliative care; I48.91 Unspecified atrial fibrillation; R00.1 Bradycardia, unspecified; I50.9 Heart failure, unspecified; D63.1 Anemia in chronic kidney disease; B96.89 Other specified bacterial agents as the cause of diseases classified elsewhere; E11.22 Type 2 diabetes mellitus with diabetic chronic kidney disease; E11.43 Type 2 diabetes mellitus with diabetic autonomic (poly)neuropathy; E11.51 Type 2 diabetes mellitus with diabetic peripheral angiopathy without gangrene; K31.84 Gastroparesis; R45.1 Restlessness and agitation; F17.210 Nicotine dependence, cigarettes, uncomplicated; L89.329 Pressure ulcer of left buttock, unspecified stage; L89.319 Pressure ulcer of right buttock, unspecified stage; Z93.3 Colostomy status; Z91.15 Patient's noncompliance with renal dialysis; Z95.1 Presence of aortocoronary bypass graft; Z95.5 Presence of coronary angioplasty implant and graft; Z99.2 Dependence on renal dialysis
CPT/HCPCS: 36430; 36556; 36600; 36620; 71010; 74000; 80048; 80053; 80069; 80076; 80202; 82140; 82272; 82550; 82565; 82805; 82948; 83605; 83735; 84100; 84484; 85007; 85014; 85018; 85025; 85027; 85610; 85730; 86850; 86900; 86901; 86920; 86927; 87040; 87070; 87077; 87086; 87186; 87205; 87641; 90935; 92950; 93005; 93306; 94002; 94003; 94640; 94664; 96365; 96368; 96374; 96375; C9113; J0171; J0360; J0610; J1265; J1815; J2060; J2212; J2250; J2270; J2543; J2765; J3010; J3370; J3475; J7030; J7040; J7050; J7070; J7608; J7613; P9016; P9017; P9045; P9047; Q4081